=== PATIENT | male | born 1950 | race Caucasian/White ===

== ENCOUNTER 2016-11-12 15:24 | Inpatient (IN) | payer OTHER, MEDICARE ==
[2016-11-12] MEDS ORDERED: PANTOPRAZOLE 40 MG/10 ML VIAL IVP STA (16:33)
[2016-11-12] MEDS ORDERED: RX INFO: IV CONTRAST WAS GIVEN 1 EACH MISC MISCELLANE PRN (16:33)
[2016-11-12] MEDS ORDERED: DICYCLOMINE 10 MG/ML 2 ML AMP IM STA (16:33)
--- NOTE | 2016-11-12 16:36 | ED ---
General Adult HPI - General Chief complaint: Abdominal Pain Stated complaint: abdominal pain Time Seen by Provider: 11/12/16 16:24 Source: patient, RN notes reviewed Mode of arrival: ambulatory Limitations: no limitations - History of Present Illness Initial comments: Patient is a pleasant 66-year-old male presenting to the emergency department complaining of abdominal discomfort. Patient has had symptoms over the past 30- 35 years following intestinal resection. Patient has frequent diarrhea and discomfort. Discomfort has been somewhat worse over the past month. Discomfort is somewhat worse today. Patient feels a little bit distended. No bowel movement today which is very abnormal for him. All movements have been darker recently. Patient was recently placed on antibiotics for possible bowel infection. No fevers. No vomiting. Mild nausea - Related Data Home Medications Medication Instructions Recorded Confirmed Atenolol [Tenormin] 50 mg PO DAILY 11/12/16 11/12/16 Multivitamins, Thera [Multivitamin 1 tab PO DAILY 11/12/16 11/12/16 (formulary)] Omeprazole 20 mg PO DAILY 11/12/16 11/12/16 busPIRone HCL 10 mg PO QID 11/12/16 11/12/16 Allergies Allergy/AdvReac Type Severity Reaction Status Date / Time No Known Allergies Allergy Verified 11/12/16 16:59 Review of Systems ROS Statement: Those systems with pertinent positive or pertinent negative responses have been documented in the HPI. ROS Other: All systems not noted in ROS Statement are negative. Constitutional: Denies: fever Eyes: Denies: eye pain ENT: Denies: ear pain Respiratory: Denies: cough Cardiovascular: Denies: chest pain Endocrine: Denies: fatigue Gastrointestinal: Reports: abdominal pain, nausea. Denies: vomiting Genitourinary: Denies: dysuria Musculoskeletal: Denies: back pain Skin: Denies: rash Neurological: Denies: weakness Past Medical History Past Medical History: GERD/Reflux, Hypertension History of Any Multi-Drug Resistant Organisms: None Reported Past Surgical History: Appendectomy, Bowel Resection Past Psychological History: Anxiety Smoking Status: Current every day smoker Past Alcohol Use History: None Reported Past Drug Use History: None Reported General Exam Limitations: no limitations General appearance: alert, in no apparent distress Head exam: Present: atraumatic Eye exam: Present: normal appearance, PERRL ENT exam: Present: normal oropharynx Neck exam: Present: normal inspection Respiratory exam: Present: normal lung sounds bilaterally Cardiovascular Exam: Present: regular rate, normal rhythm GI/Abdominal exam: Present: soft, distended (Mildly distended), tenderness ( Mild diffuse), normal bowel sounds. Absent: guarding, rebound, rigid, pulsatile mass Rectal exam: Present: normal inspection (Limited stool in the vault.) Extremities exam: Present: normal inspection Neurological exam: Present: alert Psychiatric exam: Present: normal affect, normal mood Skin exam: Absent: rash Course Vital Signs 11/12/16 11/12/16 15:31 18:44 Temperature 97.7 F 98.3 F Pulse Rate 90 81 Respiratory 20 18 Rate Blood Pressure 126/79 149/89 O2 Sat by Pulse 100 96 Oximetry Medical Decision Making - Medical Decision Making Patient does not meet sepsis criteria as no definite source of infection. Patient reexamined in updated. Case discussed in detail with Dr. Rangel, who will admit for Dr. Vargas - Lab Data Result diagrams: 11/12/16 16:45 11/12/16 16:45 Lab Results 11/12/16 11/12/16 11/12/16 Range/Units 16:45 16:45 16:45 WBC 19.2 H (3.8-10.6) k/uL RBC 5.31 (4.30-5.90) m/uL Hgb 15.8 (13.0-17.5) gm/dL Hct 49.0 (39.0-53.0) % MCV 92.4 (80.0-100.0) fL MCH 29.7 (25.0-35.0) pg MCHC 32.2 (31.0-37.0) g/dL RDW 12.9 (11.5-15.5) % Plt Count 610 H (150-450) k/uL Neutrophils % 83 % Lymphocytes % 12 % Monocytes % 3 % Eosinophils % 1 % Basophils % 1 % Neutrophils # 15.8 H (1.3-7.7) k/uL Lymphocytes # 2.2 (1.0-4.8) k/uL Monocytes # 0.7 (0-1.0) k/uL Eosinophils # 0.2 (0-0.7) k/uL Basophils # 0.1 (0-0.2) k/uL PT (9.0-12.0) sec INR (<1.1) APTT (22.0-30.0) sec Sodium 140 (137-145) mmol/L Potassium 4.9 (3.5-5.1) mmol/L Chloride 98 (98-107) mmol/L Carbon Dioxide 26 (22-30) mmol/L Anion Gap 16 mmol/L BUN 15 (9-20) mg/dL Creatinine 1.65 H (0.66-1.25) mg/dL Est GFR (MDRD) Af Amer 51 (>60 ml/min/1.73 sqM) Est GFR (MDRD) Non-Af 42 (>60 ml/min/1.73 sqM) Glucose 127 H (74-99) mg/dL Calcium 8.4 (8.4-10.2) mg/dL Total Bilirubin 0.7 (0.2-1.3) mg/dL AST 30 (17-59) U/L ALT 26 (21-72) U/L Alkaline Phosphatase 57 (38-126) U/L Total Protein 8.0 (6.3-8.2) g/dL Albumin 4.5 (3.5-5.0) g/dL Amylase 92 (30-110) U/L Lipase 160 (23-300) U/L Urine Color Urine Appearance (Clear) Urine pH (5.0-8.0) Ur Specific [place] (1.001-1.035) Urine Protein (Negative) Urine Glucose (UA) (Negative) Urine Ketones (Negative) Urine Blood (Negative) Urine Nitrite (Negative) Urine Bilirubin (Negative) Urine Urobilinogen (<2.0) mg/dL Ur Leukocyte Esterase (Negative) Urine WBC (0-5) /hpf Ur Squamous Epith Cells (0-4) /hpf Amorphous Sediment (None) /hpf Hyaline Casts (0-2) /lpf Urine Mucus (None) /hpf Stool Occult Blood Negative (Negative) 11/12/16 11/12/16 Range/Units 16:45 17:20 WBC (3.8-10.6) k/uL RBC (4.30-5.90) m/uL Hgb (13.0-17.5) gm/dL Hct (39.0-53.0) % MCV (80.0-100.0) fL MCH (25.0-35.0) pg MCHC (31.0-37.0) g/dL RDW (11.5-15.5) % Plt Count (150-450) k/uL Neutrophils % % Lymphocytes % % Monocytes % % Eosinophils % % Basophils % % Neutrophils # (1.3-7.7) k/uL Lymphocytes # (1.0-4.8) k/uL Monocytes # (0-1.0) k/uL Eosinophils # (0-0.7) k/uL Basophils # (0-0.2) k/uL PT 11.2 (9.0-12.0) sec INR 1.1 (<1.1) APTT 22.5 (22.0-30.0) sec Sodium (137-145) mmol/L Potassium (3.5-5.1) mmol/L Chloride (98-107) mmol/L Carbon Dioxide (22-30) mmol/L Anion Gap mmol/L BUN (9-20) mg/dL Creatinine (0.66-1.25) mg/dL Est GFR (MDRD) Af Amer (>60 ml/min/1.73 sqM) Est GFR (MDRD) Non-Af (>60 ml/min/1.73 sqM) Glucose (74-99) mg/dL Calcium (8.4-10.2) mg/dL Total Bilirubin (0.2-1.3) mg/dL AST (17-59) U/L ALT (21-72) U/L Alkaline Phosphatase (38-126) U/L Total Protein (6.3-8.2) g/dL Albumin (3.5-5.0) g/dL Amylase (30-110) U/L Lipase (23-300) U/L Urine Color Dark Yellow Urine Appearance Cloudy (Clear) Urine pH 5.5 (5.0-8.0) Ur Specific [place] 1.023 (1.001-1.035) Urine Protein 2+ H (Negative) Urine Glucose (UA) Negative (Negative) Urine Ketones Negative (Negative) Urine Blood Negative (Negative) Urine Nitrite Negative (Negative) Urine Bilirubin Negative (Negative) Urine Urobilinogen 2.0 (<2.0) mg/dL Ur Leukocyte Esterase Negative (Negative) Urine WBC 9 H (0-5) /hpf Ur Squamous Epith Cells <1 (0-4) /hpf Amorphous Sediment Rare H (None) /hpf Hyaline Casts 1256 H (0-2) /lpf Urine Mucus Moderate H (None) /hpf Stool Occult Blood (Negative) - Radiology Data Radiology results: report reviewed (Computed tomography scan of abdomen and pelvis shows wall thickening with masslike area involving terminal ileum and cecum. May reflect neoplasm versus chronic inflammatory process. Distal small bowel likely reflecting at least partial small bowel obstruction.) Disposition Clinical Impression: Small bowel obstruction Disposition: ADMITTED IP TO THIS HOSP
[2016-11-12 17:07] LABS: Basophils # (A) 0.1 k/uL (0-0.2); Basophils % (A) 1 %; CH 29.5; Eosinophils # (A) 0.2 k/uL (0-0.7); Eosinophils % (A) 1 %; HDW 2.61; HGB 15.8 gm/dL (13.0-17.5); Luc # (Auto) 0.13; Luc % (Auto) 1; Lymphocytes # (A) 2.2 k/uL (1.0-4.8); Lymphocytes % (A) 12 %; MCH 29.7 pg (25.0-35.0); MCHC 32.2 g/dL (31.0-37.0); MCV 92.4 fL (80.0-100.0); Mean Platelet Volume 7.3; Monocytes # (A) 0.7 k/uL (0-1.0); Monocytes % (A) 3 %; Neutrophils # (A) 15.8 k/uL (1.3-7.7); Neutrophils % (A) 83 %; RBC 5.31 m/uL (4.30-5.90); RDW 12.9 % (11.5-15.5); WBC 19.2 k/uL (3.8-10.6); WBC (Perox) 18.98
[2016-11-12 17:13] LABS: INR 1.1 (<1.1); Partial Thromboplastin Time 22.5 sec (22.0-30.0); Prothrombin Time 11.2 sec (9.0-12.0)
[2016-11-12 17:15] LABS: Calcium 8.4 mg/dL (8.4-10.2); Potassium 4.9 mmol/L (3.5-5.1); Total Bilirubin 0.7 mg/dL (0.2-1.3)
[2016-11-12] MEDS ORDERED: SODIUM CHLORIDE 0.9% 500 ML IV STA (17:46)
[2016-11-12 17:55] LABS: Amorphous Sediment,Urine Rare /hpf; Appearance,Urine Cloudy (Clear); Bilirubin,Urine Negative (Negative); Glucose,Urine (UA) Negative (Negative); Ketones,Urine Negative (Negative); Leukocyte Esterase,Urine Negative (Negative); Mucus,Urine Moderate /hpf; Nitrite,Urine Negative (Negative); PH, Urine 5.5 (5.0-8.0); Particle Count 16426; Protein,Urine 2+ (Negative); Specific Gravity,Urine 1.023 (1.001-1.035); Squamous Epithelial Cell,Urine <1 /hpf (0-4); UA Billing (MACRO vs. MICRO) MICRO; WBC,Urine 9 /hpf (0-5)
--- NOTE | 2016-11-12 18:13 | CT ---
EXAMINATION TYPE: CT abdomen pelvis w con DATE OF EXAM: 11/12/2016 5:54 PM COMPARISON: NONE HISTORY: Patient complains of periumbilical pain, constipation, and bloating CT DLP: 1554 mGycm CONTRAST: CT scan of the abdomen and pelvis is performed without Oral Contrast and with IV Contrast, patient in jected with 80 mL of Visipaque 320. FINDINGS: LUNG BASES-: No visible nodule. No infiltrate. LIVER/GB: No calcified gallstones. No space occupying hepatic lesion. Biliary tree is of normal ca liber. PANCREAS: No inflammation. No distinct mass. SPLEEN: No splenic enlargement. No lesion seen. ADRENALS: 1.2 cm left adrenal nodule is nonspecific. KIDNEYS/BLADDER: No hydronephrosis. No nephrolithiasis. No disctinct renal mass. Urinary bladder g rossly unremarkable. BOWEL: There is moderately severe wall thickening involving the distal ileum&&&& GENITAL ORGANS: No gross abnormality. LYMPH NODES: No greater than 1cm abdominal or pelvic lymph nodes are appreciated. AORTA: No significant abnormality. OSSEOUS STRUCTURES: No significant abnormality is seen. OTHER: Small amount of free fluid within the pelvis. IMPRESSION: 1. Wall thickening with masslike area noted involving the terminal ileum and cecum. As noted this may reflect neoplasm versus chronic inflammatory process. The appendix is not clearly visualized. See ab ove discussion. 2. Dilated small bowel likely reflecting at least partial small bowel obstruction.
[2016-11-12] MEDS ORDERED: HYDROmorphone 1 MG/ML 1 ML SYRINGE IVP STA (18:35)
[2016-11-12] MEDS ORDERED: NALOXONE 0.4 MG/ML 1 ML VIAL IV PRN (18:41)
[2016-11-12] MEDS ORDERED: ONDANSETRON 4 MG/2 ML VIAL IVP PRN (18:41)
[2016-11-12] MEDS: SODIUM CHLORIDE 0.9% 1,000 ML IV SCH ×2 (18:46→22:12)
[2016-11-12] MEDS ORDERED: PIPERACILLIN-TAZOBACTAM 3.375 GM in DEXTROSE/WATER 1 50ML.BAG IVPB STA (18:48)
[2016-11-12] MEDS: HYDROmorphone 1 MG/ML 1 ML SYRINGE IV PRN (22:12)
[2016-11-13] MEDS: HYDROmorphone 1 MG/ML 1 ML SYRINGE IV PRN ×7 (00:19→19:53)
[2016-11-13] MEDS: PIPERACILLIN-TAZOBACTAM 3.375 GM in DEXTROSE/WATER 1 50ML.BAG IVPB SCH ×3 (05:42→21:01)
[2016-11-13] MEDS: PANTOPRAZOLE 40 MG/10 ML VIAL IV SCH (08:46)
[2016-11-13 09:30] LABS: Basophils # (A) 0.1 k/uL (0-0.2); Basophils % (A) 1 %; CH 29.2; CHCM 31.8; Eosinophils # (A) 0.1 k/uL (0-0.7); Eosinophils % (A) 1 %; HCT 43.2 % (39.0-53.0); HDW 2.55; Luc # (Auto) 0.21; Luc % (Auto) 2; Lymphocytes # (A) 3.2 k/uL (1.0-4.8); Lymphocytes % (A) 23 %; MCH 29.8 pg (25.0-35.0); MCHC 32.3 g/dL (31.0-37.0); MCV 92.3 fL (80.0-100.0); Mean Platelet Volume 6.4; Monocytes # (A) 0.8 k/uL (0-1.0); Monocytes % (A) 6 %; Neutrophils # (A) 9.8 k/uL (1.3-7.7); Neutrophils % (A) 69 %; RBC 4.68 m/uL (4.30-5.90); RDW 12.5 % (11.5-15.5); WBC 14.2 k/uL (3.8-10.6); WBC (Perox) 14.49
[2016-11-13 09:39] LABS: Calcium 7.7 mg/dL (8.4-10.2); Potassium 5.2 mmol/L (3.5-5.1); Total Bilirubin 0.7 mg/dL (0.2-1.3); Total Protein 6.5 g/dL (6.3-8.2)
--- NOTE | 2016-11-13 12:08 | P.GSCN ---
History of Present Illness Consult date: 11/13/16 Reason for Consult: Abdominal pain History of present illness: A 66-year-old gentleman who is being seen for a surgical eval for abdominal pain at the request of the attending. Patient states that he did present to the emergency room on the day of admission after patient stated that he had been having ongoing for the past several weeks increased abdominal pain bloated with no stool for the last several days which according to the patient was abnormal patient states he normally has at least 3-4 stools daily. Patient states that 3 weeks ago he did go to the [facility] in [place] for his regular checkup while he was there he told them about the abdominal bloating with diffuse abdominal pain he was experiencing. He states that they did check some labs was told his white count was up they gave him a prescription for an antibiotic for treatment of a questionable possible bowel infection. Patient is not certain of the name of antibiotic Patient stated he had not been experiencing any fever or chills he felt a sensation of nausea but no active vomiting. He stated that the last week or 2 he has been experiencing a poor oral intake poor caloric and has lost 10 pounds.. Patient contributes his poor caloric and oral intake due to nausea sensation with no appetite patient stated that he did become concerned symptoms had gotten worse he has not had a bowel movement in several days with increased abdominal bloating in the emergency room the white count was 19.2. Patient was afebrile slightly tachycardic heart rate was in the 90s. Additionally patient's creatinine was mildly elevated 1.6 in the emergency room the patient did undergo a CAT scan of the abdomen and pelvis that showed wall thickening with the masslike area involving the terminal ileum and cecum. Could reflect a neoplasm or a chronic inflammatory process. The distal small bowel likely reflecting as partial small bowel obstruction Currently patient is resting in bed a nasal gastric tube is in place connected to suction greater than 500 of bile noted in the canister patient continues to report having abdominal discomfort a few hypoactive bowel tones no nausea no stool not passing any gas pain medication effective for pain control Patient's surgical history 35 years ago patient had bowel surgery with an appendectomy done. Patient states he was told that there was an infection part of bowel as well as the appendix removed . Last colonoscopy 10 years patient reports that there were no acute findings otherwise no significant past surgical history Patient denies any cardiac history denies any episodes of chest pain. States he 's normally an active individual can walk half a mile without chest pain or shortness of breath. Has never been told he had a cardiac history. Past medical history hypertension and a depressive disorder Review of Systems Essentially unremarkable except as mentioned in the present illness Past Medical History Past Medical History: GERD/Reflux, Hypertension Additional Past Medical History / Comment(s): IBS, "HERNIATED DICS LOWER BACK" History of Any Multi-Drug Resistant Organisms: None Reported Past Surgical History: Appendectomy, Bowel Resection, Tubal Ligation Additional Past Surgical History / Comment(s): "35 YEARS AGO HAD BOWEL SX- REMOVED A FOOT OF INTESTINE D/T LOW GRADE INFECTION" Past Anesthesia/Blood Transfusion Reactions: No Reported Reaction Past Psychological History: Anxiety Additional Psychological History / Comment(s): PT IS , LIVES IN A 2 STORY HOME THAT HAS 4 PORCH STEPS. AND 20 STEPS TO UPSATIRS. NO PETS. NO OUTSIDE SERVICES. NO MEDICAL EQUIPMENT. 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 STATED FOR 20 YEARS DRANK MOD TO HEAVY THEN QUIT AGE 48. Past Drug Use History: None Reported - Past Family History Mother Family Medical History: Diabetes Mellitus Medications and Allergies Home Medications Medication Instructions Recorded Confirmed Type Atenolol [Tenormin] 50 mg PO DAILY 11/12/16 11/12/16 History Multivitamins, Thera [Multivitamin 1 tab PO DAILY 11/12/16 11/12/16 History (formulary)] Omeprazole 20 mg PO DAILY 11/12/16 11/12/16 History busPIRone HCL 10 mg PO QID 11/12/16 11/12/16 History Allergies Allergy/AdvReac Type Severity Reaction Status Date / Time No Known Allergies Allergy Verified 11/12/16 16:59 Surgical - Exam Vital Signs Temp Pulse Resp BP Pulse Ox 97.7 F 90 20 126/79 100 11/12/16 15:31 11/12/16 15:31 11/12/16 15:31 11/12/16 15:31 11/12/16 15:31 GENERAL APPEARANCE: 66-year-old male patient is alert, oriented, in no acute distress. Pleasant cooperative nasal gastric tube in place connected to suction VITAL SIGNS: Reviewed HEENT: Head is normocephalic and atraumatic. Pupils are equal and reactive. The nares are patent. Oropharynx is clear without lesions. NECK: Supple without lymphadenopathy. Traches midline. HEART: S1, S2. Regular rate and rhythm. No murmur noted denying chest pain LUNGS: Essentially clear adequate air movement no wheezing rales or rhonchi no cough noted ABDOMEN: Soft, diffuse tenderness slight distention a few hypoactive bowel tones noted. No peritoneal signs. No palpable organomegaly or masses.Nasal gastric tube in place connected to suction moderate amount of bile secretions in the canister states not passing gas no stool EXTREMITIES: Normal skin color and turgor. No cyanosis, rash, ulceration, clubbing or edema. Radial pedal pulses are 2/4 bilaterally.Venodyne's on bilaterally lower extremities NEUROLOGICAL: No focal deficits. Strength and sensation are grossly intact. Results - Labs 11/13/16 08:35 11/13/16 08:35 Abnormal Lab Results - Last 24 Hours (Table) 11/13/16 11/13/16 Range/Units 08:35 08:35 WBC 14.2 H (3.8-10.6) k/uL Plt Count 480 H (150-450) k/uL Neutrophils # 9.8 H (1.3-7.7) k/uL Potassium 5.2 H (3.5-5.1) mmol/L Creatinine 1.47 H (0.66-1.25) mg/dL Glucose 101 H (74-99) mg/dL Calcium 7.7 L (8.4-10.2) mg/dL Diabetes panel 11/13/16 Range/Units 08:35 Sodium 141 (137-145) mmol/L Potassium 5.2 H (3.5-5.1) mmol/L Chloride 103 (98-107) mmol/L Carbon Dioxide 29 (22-30) mmol/L BUN 18 (9-20) mg/dL Creatinine 1.47 H (0.66-1.25) mg/dL Glucose 101 H (74-99) mg/dL Calcium 7.7 L (8.4-10.2) mg/dL AST 27 (17-59) U/L ALT 25 (21-72) U/L Alkaline Phosphatase 53 (38-126) U/L Total Protein 6.5 (6.3-8.2) g/dL Albumin 3.6 (3.5-5.0) g/dL Calcium panel 11/13/16 Range/Units 08:35 Calcium 7.7 L (8.4-10.2) mg/dL Albumin 3.6 (3.5-5.0) g/dL Pituitary panel 11/13/16 Range/Units 08:35 Sodium 141 (137-145) mmol/L Potassium 5.2 H (3.5-5.1) mmol/L Chloride 103 (98-107) mmol/L Carbon Dioxide 29 (22-30) mmol/L BUN 18 (9-20) mg/dL Creatinine 1.47 H (0.66-1.25) mg/dL Glucose 101 H (74-99) mg/dL Calcium 7.7 L (8.4-10.2) mg/dL Adrenal panel 11/13/16 Range/Units 08:35 Sodium 141 (137-145) mmol/L Potassium 5.2 H (3.5-5.1) mmol/L Chloride 103 (98-107) mmol/L Carbon Dioxide 29 (22-30) mmol/L BUN 18 (9-20) mg/dL Creatinine 1.47 H (0.66-1.25) mg/dL Glucose 101 H (74-99) mg/dL Calcium 7.7 L (8.4-10.2) mg/dL Total Bilirubin 0.7 (0.2-1.3) mg/dL AST 27 (17-59) U/L ALT 25 (21-72) U/L Alkaline Phosphatase 53 (38-126) U/L Total Protein 6.5 (6.3-8.2) g/dL Albumin 3.6 (3.5-5.0) g/dL Assessment and Plan Plan: Impression Present on admission abdominal pain bloating nausea sensation suspect due to partial small bowel obstruction History of unintentional weight loss greater than 10 pounds within the last 2 weeks CAT scan abdomen and pelvis wall thickening with masslike area noted involving terminal ileum and cecum may reflect neoplasm or chronic inflammatory process CAT scan abdomen and pelvis dilated small bowel likely reflecting partial small bowel obstruction A remote history greater than 35 years ago bowel resection with an appendectomy History of hypertension History of esophageal reflux Present on admission leukocytosis Plan Continue with nasal gastric tube connect to suction Pain control IV hydration DVT and GI prophylaxis Continue with IV Zosyn as ordered Scheduled tentatively for OR tomorrow exploratory lap possible lysis of adhesions for a possible small bowel obstruction defer to the timing by surgical service Further recommendations pending EKG now Type and cross now Thank you for this kind referral and allowing us to participate in the surgical management of your patient further surgical recommendations pending clinical course The above dictated assessment and findings were discussed with dr fisher Impression and the plan of care have been dictated as directed. Flower iSmpson nurse practitioner acting as a scribe for dr fisher
[2016-11-13] MEDS: busPIRone HCl 10 MG TAB PO SCH ×4 (12:56→21:33)
[2016-11-13] MEDS: SODIUM CHLORIDE 0.9% 1,000 ML IV SCH ×2 (13:07→18:03)
--- NOTE | 2016-11-13 15:21 | P.HPIM ---
History of Present Illness H&P Date: 11/13/16 66-year-old gentleman comes in the hospital with progressive worsening of abdominal pain diffuse in nature mostly focused around the umbilicus for the last 2-3 days. Patient states that over the last 2 weeks he has had intermittent pains. Or the last 2-3 days patient has had progressive worsening of pain and has had intractable nausea. Patient states that he has had some watery bowel movements over the last 1-2 weeks. States that he has lost over 10 pounds over the last 2-3 weeks. In the emergency room patient was noted to have a computed tomography scan of the abdomen pelvis was noted to have a masslike region of the terminal ileum and the cecum. States that his last colonoscopy was over 10 years ago. Patient was noted to have a masslike area causing a small bowel obstruction. An NG tube was placed. During the time of my evaluation patient states he feels slightly better however does continue complain of abdominal pain around the location described above. Family history denies having any history of colon cancer or any other cancer history. Patient does smoke about half a pack of cigarettes daily. Review of Systems All systems: negative (Noted in HPI) Past Medical History Past Medical History: GERD/Reflux, Hypertension Additional Past Medical History / Comment(s): IBS, "HERNIATED DICS LOWER BACK" History of Any Multi-Drug Resistant Organisms: None Reported Past Surgical History: Appendectomy, Bowel Resection, Tubal Ligation Additional Past Surgical History / Comment(s): "35 YEARS AGO HAD BOWEL SX- REMOVED A FOOT OF INTESTINE D/T LOW GRADE INFECTION" Past Anesthesia/Blood Transfusion Reactions: No Reported Reaction Past Psychological History: Anxiety Additional Psychological History / Comment(s): PT IS , LIVES IN A 2 STORY HOME THAT HAS 4 PORCH STEPS. AND 20 STEPS TO UPSATIRS. NO PETS. NO OUTSIDE SERVICES. NO MEDICAL EQUIPMENT. 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 STATED FOR 20 YEARS DRANK MOD TO HEAVY THEN QUIT AGE 48. Past Drug Use History: None Reported - Past Family History Mother Family Medical History: Diabetes Mellitus Medications and Allergies Home Medications Medication Instructions Recorded Confirmed Type Atenolol [Tenormin] 50 mg PO DAILY 11/12/16 11/12/16 History Multivitamins, Thera [Multivitamin 1 tab PO DAILY 11/12/16 11/12/16 History (formulary)] Omeprazole 20 mg PO DAILY 11/12/16 11/12/16 History busPIRone HCL 10 mg PO QID 11/12/16 11/12/16 History Allergies Allergy/AdvReac Type Severity Reaction Status Date / Time No Known Allergies Allergy Verified 11/12/16 16:59 Physical Exam Vitals: Vital Signs Temp Pulse Pulse Resp BP BP Pulse Ox 11/13/16 07:00 97.6 F 85 16 132/70 95 11/12/16 23:00 98.8 F 85 20 121/81 95 11/12/16 21:01 97.5 F L 87 20 128/89 97 11/12/16 20:18 98.1 F 87 16 138/87 98 11/12/16 18:44 98.3 F 81 18 149/89 96 Intake and Output 11/13/16 11/13/16 11/13/16 06:59 14:59 22:59 Intake Total 0 Output Total 600 Balance -600 Intake: Oral 0 Output: Gastric Drainage 600 Other: Voiding Method Toilet # Voids 1 Physical exam Gen. appearance oriented 3 in no distress Neck is supple no JVD Lungs good air entry clear to auscultation no rhonchi or wheezing Heart S1-S2 heard regular rate and rhythm no murmurs appreciated Abdomen diffusely tender more focal tenderness around the umbilicus NG tube in place bilious content noted Neurologically cranial nerves II-12 grossly intact no focal motor or sensory deficits noted Skin no abnormalities appreciated Results CBC & Chem 7: 11/13/16 08:35 11/13/16 08:35 Labs: Abnormal Lab Results - Last 24 Hours (Table) 11/13/16 11/13/16 Range/Units 08:35 08:35 WBC 14.2 H (3.8-10.6) k/uL Plt Count 480 H (150-450) k/uL Neutrophils # 9.8 H (1.3-7.7) k/uL Potassium 5.2 H (3.5-5.1) mmol/L Creatinine 1.47 H (0.66-1.25) mg/dL Glucose 101 H (74-99) mg/dL Calcium 7.7 L (8.4-10.2) mg/dL Thrombosis Risk Factor Assmnt - Choose All That Apply Any of the Below Risk Factors Present?: No Other Risk Factors: Yes Each Risk Factor Represents 2 Points: Age 61-74 years Other congenital or acquired thrombophilia - If yes, enter type in comment: No Thrombosis Risk Factor Assessment Total Risk Factor Score: 2 Thrombosis Risk Factor Assessment Level: Low Risk Assessment and Plan Plan: [id number] gentleman is admitted to the hospital with the nausea vomiting and abdominal pain secondary to small bowel obstruction due to a mass #2 ongoing tobacco use #3 GERD #4 history of hypertension. #5 history of depression/severe anxiety Plan At surgical consultation will be obtained and continue NG tube decompression. We'll defer to the general surgeon in regards to a surgical evaluation of the patient's mass around the ileum/cecum. Patient is able to perform greater than 5 mets Prior to the recent onset of symptoms. Is clear for surgery from a cardiovascular risk assessment with low to moderate probability for morbidity/mortality.
[2016-11-13] MEDS: HEPARIN SODIUM,PORCINE 5,000 UNIT/ML 1 ML VIAL SQ SCH (21:02)
[2016-11-13] MEDS ORDERED: HYDROmorphone 1 MG/ML 1 ML SYRINGE ONE (23:05)
[2016-11-14] MEDS ORDERED: HYDROmorphone 1 MG/ML 1 ML SYRINGE ONE (03:26)
[2016-11-14] MEDS ORDERED: PIPERACILLIN-TAZO 3.375 GM/50 ML PMX BAG ONE (03:26)
[2016-11-14] MEDS ORDERED: SODIUM CHLORIDE 0.9% 1,000 ML BAG ONE (03:26)
[2016-11-14] MEDS: HYDROmorphone 1 MG/ML 1 ML SYRINGE IV PRN ×3 (07:00→23:18)
[2016-11-14] MEDS: SODIUM CHLORIDE 0.9% 1,000 ML IV SCH ×3 (08:22→21:42)
[2016-11-14] MEDS: PIPERACILLIN-TAZOBACTAM 3.375 GM in DEXTROSE/WATER 1 50ML.BAG IVPB SCH ×3 (08:22→21:48)
[2016-11-14] MEDS: ATENOLOL 50 MG TAB PO SCH (08:26)
[2016-11-14] MEDS: PANTOPRAZOLE 40 MG/10 ML VIAL IV SCH (08:26)
[2016-11-14] MEDS: HEPARIN SODIUM,PORCINE 5,000 UNIT/ML 1 ML VIAL SQ SCH (08:27)
[2016-11-14] MEDS: busPIRone HCl 10 MG TAB PO SCH ×4 (08:27→21:41)
[2016-11-14 09:17] LABS: ALT 31 U/L (21-72); AST 30 U/L (17-59); Alkaline Phosphatase 52 U/L (38-126); Anion Gap 12 mmol/L; Blood Urea Nitrogen 18 mg/dL (9-20); Calcium 7.4 mg/dL (8.4-10.2); Carbon Dioxide 24 mmol/L (22-30); Chloride 107 mmol/L (98-107); Glucose 84 mg/dL (74-99); Non-African American GFR(MDRD) 60 (>60 ml/min/1.73 sqM); Potassium 4.2 mmol/L (3.5-5.1); Sodium 143 mmol/L (137-145); Total Bilirubin 0.8 mg/dL (0.2-1.3); Total Protein 5.9 g/dL (6.3-8.2)
[2016-11-14 09:18] LABS: Basophils # (A) 0.1 k/uL (0-0.2); Basophils % (A) 1 %; CH 29.5; CHCM 31.4; Eosinophils # (A) 0.2 k/uL (0-0.7); Eosinophils % (A) 1 %; HCT 38.7 % (39.0-53.0); HDW 2.43; HGB 12.3 gm/dL (13.0-17.5); Luc # (Auto) 0.16; Luc % (Auto) 1; Lymphocytes # (A) 2.3 k/uL (1.0-4.8); Lymphocytes % (A) 19 %; MCH 29.9 pg (25.0-35.0); MCHC 31.7 g/dL (31.0-37.0); MCV 94.1 fL (80.0-100.0); Mean Platelet Volume 6.5; Monocytes # (A) 0.7 k/uL (0-1.0); Monocytes % (A) 6 %; Neutrophils % (A) 73 %; RBC 4.12 m/uL (4.30-5.90); RDW 12.9 % (11.5-15.5); WBC 12.4 k/uL (3.8-10.6); WBC (Perox) 12.71
--- NOTE | 2016-11-14 13:35 | P.PN ---
<Flower Simpson M - Last Filed: 11/14/16 13:27> Subjective 66-year-old male being seen on rounds this morning patient states he had several loose stools last night and had 1 small stool this morning. Nursing reports the stools have been watery no blood noted. Patient states is less abdominal cramping. has a nasal gastric tube in place connected to suction. Patient does state the pain medication effective for pain control. Patient states been up ambulating in the hallway states is not passing gas not belching Objective - Vital Signs Vital signs: Vital Signs Temp 97.5 F L 11/14/16 07:00 Pulse 94 11/14/16 07:00 Resp 16 11/14/16 07:00 BP 129/77 11/14/16 07:00 Pulse Ox 94 L 11/14/16 07:00 Intake & Output 11/13/16 11/14/16 11/14/16 18:59 06:59 18:59 Output Total 200 151 Balance -200 -151 Weight 101.151 kg Output: Gastric Drainage 200 150 Urine 1 Other: Voiding Method Toilet Toilet Toilet # Voids 2 1 # Bowel Movements 2 - Exam physical exam Pleasant 66-year-old male resting in bed in nasal gastric tube to suction appears in no acute distress lungs essentially clear adequate air movement room air Heart S1-S2 audible and regular denying chest pain Abdomen less distended compared to prior assessment all tones present states urinating no difficulty states had 1 stool this morning loose watery and 2 stools the day before. Continues to report has abdominal cramping Extremities no edema - Labs CBC & Chem 7: 11/14/16 08:47 11/14/16 08:44 Labs: Abnormal Lab Results - Last 24 Hours (Table) 11/14/16 11/14/16 Range/Units 08:44 08:47 WBC 12.4 H (3.8-10.6) k/uL RBC 4.12 L (4.30-5.90) m/uL Hgb 12.3 L (13.0-17.5) gm/dL Hct 38.7 L (39.0-53.0) % Neutrophils # 9.0 H (1.3-7.7) k/uL Calcium 7.4 L (8.4-10.2) mg/dL Total Protein 5.9 L (6.3-8.2) g/dL Albumin 3.3 L (3.5-5.0) g/dL Assessment and Plan Plan: Impression Present on admission abdominal pain bloating nausea sensation suspect due to partial small bowel obstruction History of unintentional weight loss greater than 10 pounds within the last 2 weeks CAT scan abdomen and pelvis wall thickening with masslike area noted involving terminal ileum and cecum may reflect neoplasm or chronic inflammatory process CAT scan abdomen and pelvis dilated small bowel likely reflecting partial small bowel obstruction A remote history greater than 35 years ago bowel resection with an appendectomy History of hypertension History of esophageal reflux Present on admission leukocytosis Plan Continue with nasal gastric tube connect to suction Pain control IV hydration DVT and GI prophylaxis Continue with IV Zosyn as ordered scheduled for OR this afternoon per Dr. fisher defer to the timing by surgical service Further recommendations pending Thank you for this kind referral and allowing us to participate in the surgical management of your patient further surgical recommendations pending clinical course The above dictated assessment and findings were discussed with dr fisher Impression and the plan of care have been dictated as directed. Flower Simpson nurse practitioner acting as a scribe for dr fisher <Jaspreet Fisher W - Last Filed: 11/14/16 13:54> Subjective The patient has had parital obsutions off an on for the last few weeks. He presented with obstiaption. ADue to the mass from the previous surgery and his symptoms we have decided to proceed with a diagnostic laparoscopy and possible laparotomy . He understands the risks and is willing to proceed. (Jaspreet Fisher MD ) Objective - Vital Signs Vital signs: Vital Signs Temp 97.5 F L 11/14/16 07:00 Pulse 94 11/14/16 07:00 Resp 16 11/14/16 07:00 BP 129/77 11/14/16 07:00 Pulse Ox 94 L 11/14/16 07:00 Intake & Output 11/13/16 11/14/16 11/14/16 18:59 06:59 18:59 Output Total 200 151 Balance -200 -151 Weight 101.151 kg Output: Gastric Drainage 200 150 Urine 1 Other: Voiding Method Toilet Toilet Toilet # Voids 2 1 # Bowel Movements 2 - Labs CBC & Chem 7: 11/14/16 08:47 11/14/16 08:44 Labs: Abnormal Lab Results - Last 24 Hours (Table) 11/14/16 11/14/16 Range/Units 08:44 08:47 WBC 12.4 H (3.8-10.6) k/uL RBC 4.12 L (4.30-5.90) m/uL Hgb 12.3 L (13.0-17.5) gm/dL Hct 38.7 L (39.0-53.0) % Neutrophils # 9.0 H (1.3-7.7) k/uL Calcium 7.4 L (8.4-10.2) mg/dL Total Protein 5.9 L (6.3-8.2) g/dL Albumin 3.3 L (3.5-5.0) g/dL
[2016-11-14] MEDS ORDERED: IV FLUID CONTINUATION 1,000 ML IV ONE (14:02)
[2016-11-14] MEDS ORDERED: ALBUMIN HUMAN 5% 500 ML VIAL IVPB ONE (14:20)
[2016-11-14] MEDS ORDERED: MIDAZOLAM 2 MG/2 ML VIAL ONE (14:20)
[2016-11-14] MEDS ORDERED: PROPOFOL 10 MG/ML 20 ML VIAL IV ONE (14:20)
[2016-11-14] MEDS ORDERED: LIDOCAINE 1% INJ 10MG/ML (20 ML MDV) ONE (14:20)
[2016-11-14] MEDS ORDERED: NEOSTIGMINE 1 MG/ML 10 ML VIAL ONE (14:20)
[2016-11-14] MEDS ORDERED: PHENYLEPHRINE-0.9% NACL SYG 1 MG/10 ML SYRINGE ONE (14:20)
[2016-11-14] MEDS ORDERED: ONDANSETRON 4 MG/2 ML VIAL ONE (14:20)
[2016-11-14] MEDS ORDERED: fentaNYL (PF) 50 MCG/ML 2 ML AMP ONE (14:20)
[2016-11-14] MEDS ORDERED: SUCCINYLCHOLINE CHLORIDE 100 MG/5 ML SYR IV ONE (14:20)
[2016-11-14] MEDS ORDERED: HYDROmorphone (PF) 1 MG/ML ONE (14:20)
[2016-11-14] MEDS ORDERED: KETOROLAC 30 MG/ML 1 ML VIAL ONE (14:20)
[2016-11-14] MEDS ORDERED: GLYCOPYRROLATE 0.2 MG/ML 2 ML VIAL ONE (14:20)
[2016-11-14] MEDS ORDERED: ROCURONIUM BROMIDE 10 MG/ML 10 ML VIAL IV ONE (14:20)
[2016-11-14] MEDS ORDERED: BUPIVACAIN-EPI 0.25%-1:200,000 30 ML VIAL SQ ONE ×2 (14:48)
[2016-11-14] MEDS ORDERED: LACTATED RINGERS 1,000 ML IV ONE ×4 (14:48→17:48)
[2016-11-14] MEDS ORDERED: ALBUMIN HUMAN 5% 500 ML in EMPTY BAG 1 BAG IVPB STA ×2 (16:39→17:34)
--- NOTE | 2016-11-14 18:57 | P.PN ---
Subjective 66-year-old gentleman comes in the hospital with progressive worsening of abdominal pain diffuse in nature mostly focused around the umbilicus for the last 2-3 days. Patient states that over the last 2 weeks he has had intermittent pains. Or the last 2-3 days patient has had progressive worsening of pain and has had intractable nausea. Patient states that he has had some watery bowel movements over the last 1-2 weeks. States that he has lost over 10 pounds over the last 2-3 weeks. In the emergency room patient was noted to have a computed tomography scan of the abdomen pelvis was noted to have a masslike region of the terminal ileum and the cecum. States that his last colonoscopy was over 10 years ago. Patient was noted to have a masslike area causing a small bowel obstruction. An NG tube was placed. During the time of my evaluation patient states he feels slightly better however does continue complain of abdominal pain around the location described above. Family history denies having any history of colon cancer or any other cancer history. Patient does smoke about half a pack of cigarettes daily. 11/14/16 states to be feeling slightly better continues to have abdominal pain has watery bms no fevers, chills, cough, markie, chest pain, urinary urgency or frequency reported.NG tube in place Objective - Vital Signs Vital signs: Vital Signs Temp 98.0 F 11/14/16 13:52 Pulse 91 11/14/16 13:52 Resp 16 11/14/16 13:52 BP 145/81 11/14/16 13:52 Pulse Ox 94 L 11/14/16 13:52 Intake & Output 11/13/16 11/14/16 11/14/16 18:59 06:59 18:59 Intake Total 2500 Output Total 200 151 Balance -200 -151 2500 Weight 101.151 kg Intake: IV 2500 Output: Gastric Drainage 200 150 Urine 1 Other: Voiding Method Toilet Toilet Toilet # Voids 2 1 3 # Bowel Movements 2 - Constitutional General appearance: Present: no acute distress - EENT Eyes: Present: PERRLA - Neck Neck: Present: normal ROM. Absent: rigidity - Respiratory Respiratory: bilateral: CTA, negative: diminished, dullness, rales, rhonchi, wheezing - Cardiovascular Rhythm: regular Heart sounds: normal: S1, S2 Abnormal Heart Sounds: Absent: systolic murmur - Gastrointestinal General gastrointestinal: Present: soft, tenderness (diffuse). Absent: organomegaly - Integumentary Integumentary: Present: normal - Neurologic Neurologic: Present: CNII-XII intact. Absent: focal deficits - Musculoskeletal Musculoskeletal: Present: gait normal - Psychiatric Psychiatric: Present: A&O x's 3, appropriate affect - Labs CBC & Chem 7: 11/14/16 08:47 11/14/16 08:44 Labs: Abnormal Lab Results - Last 24 Hours (Table) 11/14/16 11/14/16 Range/Units 08:44 08:47 WBC 12.4 H (3.8-10.6) k/uL RBC 4.12 L (4.30-5.90) m/uL Hgb 12.3 L (13.0-17.5) gm/dL Hct 38.7 L (39.0-53.0) % Neutrophils # 9.0 H (1.3-7.7) k/uL Calcium 7.4 L (8.4-10.2) mg/dL Total Protein 5.9 L (6.3-8.2) g/dL Albumin 3.3 L (3.5-5.0) g/dL Assessment and Plan Plan: #[id number] gentleman is admitted to the hospital with the nausea vomiting and abdominal pain secondary to small bowel obstruction due to a mass #2 ongoing tobacco use #3 GERD #4 history of hypertension. #5 history of depression/severe anxiety Plan ex-lap today vitals stable renal function improving.
[2016-11-14] MEDS ORDERED: BENZOCAINE/MENTHOL LOZENG 1 EACH LOZENGE MUCOUS MEM PRN (19:49)
[2016-11-14] MEDS: HYDROmorphone 1 MG/ML 1 ML SYRINGE IVP ONE ×2 (19:49→20:06)
--- NOTE | 2016-11-14 20:19 | P.OP ---
Date of Procedure: 11/14/16 Preoperative Diagnosis: Partial bowel obstruction Mass in the right lower quadrant Postoperative Diagnosis: Intraabdominal adhesions INtrabdominal abscess Ileocolic mesenteric mass Procedure(s) Performed: Diagnostic laparoscopy with lysis of adhesions converted to open exploratroy laparotomy with extensive lysis of adhesions Resection of ileocolic anstmaosis and anastamosis of ileum with transverse colon Excision of inflammatory/malignant? mass associated with bowel at the anastomotic site Drainage of intrabdominal abscess. Anesthesia: LOUANNA Surgeon: Jaspreet Norris Panel Machine Setter #1: Teofilo Oliveira Estimated Blood Loss (ml): 250 Pathology: other Condition: stable Disposition: PACU Description of Procedure: Indications for procedure Patient is a 66-year-old male who had an appendectomy that led to an ileocolic resection and anastomosis 35 years ago. FOr the last few years he's had intermittent complaints of abdominal discomfort pain crampy sensation. This is been progressively getting worse. He presented to his primary care doctor not feeling well with an elevated white count for which he was given antibiotics. He was discharged but continued to feel worse and stopped having any bowel movements or passing any flatus and presented to the emergency room with complete obstruction. He Was admitted and NG decompression performed. He did open up however a computed tomography scan of the abdomen the pelvis revealed a mass in the right lower quadrant with chronically dilated small bowel loops secondary to the partial obstruction. Due to the abdominal pain presence of the mass on CT as well as on physical exam the decision was made to do a diagnostic laparoscopy possible open bowel resection.Informed consent was obtained from the patient. Findings of the procedure 1extensive adhesions between the small bowel and the anterior abdominal wall at the site of the previous incision 2-multiple adhesions between the ileocolic anastomosis omentum the right paracolic gutter and the surrounding tissues. 3-abscess cavity posterior to the ileocolic anastomosis anterior to the duodenum 4-thickened mesentery of the ileocolic anastomosis with an inflammatory mass or probably malignant mass associated with it 5-chronically distended small bowel Description of procedure Patient was identified and a preoperative operating holding area and appropriate questions were answered and he was taken the operating room placed in the supine position and given general anesthesia with endotracheal intubation. NG tube was in place he had a Mena catheter placed. Abdomen was prepped and draped in the usual sterile surgical fashion. He already was on antibiotics and floor and did not need any further dosing. Appropriate timeout was called. Left upper quadrant was identified and after infiltration with local anesthesia and incision was made with 11 blade and using the Optiview technique abdominal cavity was entered and then insufflated to 15 mmHg after which 2 5 mm ports were placed in the left side. On entry into the abdominal cavity multiple adhesions were noted between the small bowel and the anterior abdominal wall at the site of the previous transverse incision. Much of it was taken down which the help of sharp and blunt dissection. There were omental adhesions as well as inflammatory adhesions between the site of the ileo-colic anastomosis and the anterior abdominal wall which were taken down with the help of LigaSure. Further delineation was attempted with the help of the LigaSure however there was a large palpable mass and due to the size of the mass and extending down into the mesentery decision was made to terminate the laparoscopic part of the procedure. At this time the laparoscopic instruments were removed and a midline incision was made with the help of electrocautery stated from the umbilicus all the way up to the xiphisternum and a few centimeters below the umbilicus down to the pubic tubercle. It was deepened to skin and subcutaneous tissue to the fascia which was incised abdominal cavity was entered and the full length of the incision was exposed. A Bookwalter was placed in the abdominal cavity was appropriately retracted. Extensive lysis of adhesion had to be performed to completely remove the small bowel from the anterior abdominal wall in the right lower quadrant and this freeing it up. There was significant amount of interloop adhesions as well which we had to be taken down. Further mobilization was done in the right paracolic gutter where the omentum and the previous site of the ileocolic anastomosis had formed thick adhesions. They were all taken down so as to completely delineate the site of the ileocolic anastomosis. In the crotch of the anastomosis a mass extending on the mesentry was noted. Furthermore tracing the small bowel up to the anastomosis there was an inflammatory mass or abscess posterior to it that was anterior to the duodenum. Blunt dissection was performed performed and abscess cavity was entered and the cavity contained a small in amount of pus that was sent for culture. Further dissection was carried along the right lateral margin superiorly so as to free up the ileocolic anastomosis. The colon had to be mobilized and therefore the hepatic flexure was taken down with the help of a sharp dissection as well as the ligature. Further more the dissection was carried posteriorly in the plane anterior to the duodenum which was completely exposed. There were adhesions between this inflammatory mass and the duodenum which had to be carefully taken with sharp and blunt dissection. As both the ileal side to her transverse colon size were exposed decision was made to transect the small bowel after making a hole in the mesentery of the small bowel the JOEL was fired across it thus transecting the small bowel proximal to the area of the anastomosis. Ligasure was used to dissected through the mesentery towards the site of the inflammatory mass and abscess cavity. However at this time there was significant amount of bleeding was encountered and Dr. Oliveira was requested for assistance. The abdominal cavity was packed with sponges and then sequntially yhe sponges were removed and Jessica clamp was applied across the bleeding blood vessel which was inferior and anterior to the duodenum. Ligature was used furthermore to clarify this area. The clamped mass was then ligated with the help of an 0 silk tie thus completely securing the bleeding. There was further bleeding from the small bowel side of the mesentery which was controlled with the help of ligature. Small hole was made within the mesentery of the transverse colon and this was transected with the help of a JOEL. Ligasure was then used to go across the mesentery all the way down to this mass/abscess cavity which was then transected with the help of blunt sharp and ligature dissection and removed. There was continued bleeding at around the site of the small bowel mesentery and was controlled with 2-0 silk sutures. That resulted in approximately 5 inches of small bowel being dusky and therefore another 6 inches of small bowel had to be resected with the help of JOEL to healthy margins. The mesentery was transected with the LigaSure. After this the healthy remaining transverse colon and small bowel were aligned with 2-0 silk sutures and then a side to side anastomosis was performed using a JOEL and completed with the help of a TIA. The mesentery defect was closed. Bleeding was controlled completely. Abdomen was thoroughly irrigated and sucked dry. 2 round drains were placed in the right and left lower quadrant one in the right paracolic gutter and the other in the pelvis. It was secured with the help of 2-0 nylon. The small bowel was run all the way up to the ligament of Treitz and there were no other abnormality of the liver or stomach. NG tube to be in appropriate position. Abdomen was thoroughly irrigated and sucked dry. The midline was closed with a running 1 PDS suture single-stranded. Skin was closed kaleb. Provena dressing was applied on the midline incision. 4 x 4 dressing on the 5 mm port sites. Patient ordered procedure well there were no other complications and he was extubated and taken to recovery room in stable condition NG tube and Mena catheter were left in place. He was taken to the recovery room in stable condition to be admitted to the ICU for observation
[2016-11-14] MEDS ORDERED: FAMOTIDINE 20 MG/2 ML VIAL IV SCH (21:00)
[2016-11-14 21:13] LABS: Glucose,Whole Blood 136 mg/dL (75-99)
[2016-11-14] MEDS: ALVIMOPAN 12 MG CAPSULE PO SCH (21:41)
[2016-11-14] MEDS: D5-0.45% NACL WITH KCL 20MEQ/L 1,000 ML IV SCH (21:47)
[2016-11-14] MEDS ORDERED: SODIUM CHLORIDE 0.9% 1,000 ML IV ONE (23:05)
[2016-11-15] MEDS: HEPARIN SODIUM,PORCINE 5,000 UNIT/ML 1 ML VIAL SQ SCH ×4 (00:39→23:56)
[2016-11-15] MEDS: HYDROmorphone 1 MG/ML 1 ML SYRINGE IV PRN ×3 (02:30→12:30)
[2016-11-15 04:26] LABS: Basophils % (A) 0 %; CH 29.1; CHCM 30.2; Eosinophils % (A) 0 %; HCT 36.2 % (39.0-53.0); HDW 2.33; HGB 11.2 gm/dL (13.0-17.5); Hypochromasia Moderate; Luc # (Auto) 0.14; Luc % (Auto) 1; Lymphocytes # (A) 1.8 k/uL (1.0-4.8); Lymphocytes % (A) 12 %; MCH 29.9 pg (25.0-35.0); MCV 96.7 fL (80.0-100.0); Mean Platelet Volume 6.8; Monocytes % (A) 6 %; Neutrophils # (A) 12.2 k/uL (1.3-7.7); Neutrophils % (A) 80 %; RBC 3.74 m/uL (4.30-5.90); RDW 12.7 % (11.5-15.5); WBC 15.2 k/uL (3.8-10.6); WBC (Perox) 16.35
[2016-11-15 04:58] LABS: Anion Gap 9 mmol/L; Calcium 6.8 mg/dL (8.4-10.2); Carbon Dioxide 22 mmol/L (22-30); Chloride 109 mmol/L (98-107); Glucose 137 mg/dL (74-99); Non-African American GFR(MDRD) >60 (>60 ml/min/1.73 sqM); Sodium 140 mmol/L (137-145); Total Bilirubin 0.9 mg/dL (0.2-1.3)
[2016-11-15 05:06] LABS: ALT 32 U/L (21-72); AST 38 U/L (17-59); Alkaline Phosphatase 33 U/L (38-126); Blood Urea Nitrogen 17 mg/dL (9-20); Potassium 4.6 mmol/L (3.5-5.1)
[2016-11-15 05:07] LABS: Magnesium 0.9 mg/dL (1.6-2.3)
[2016-11-15] MEDS ORDERED: Magnesium Replacement Protocol 1 EACH MISC MISCELLANE PRN (05:11)
[2016-11-15] MEDS: D5-0.45% NACL WITH KCL 20MEQ/L 1,000 ML IV SCH ×3 (05:21→23:55)
[2016-11-15] MEDS: PIPERACILLIN-TAZOBACTAM 3.375 GM in DEXTROSE/WATER 1 50ML.BAG IVPB SCH ×4 (05:22→19:49)
[2016-11-15] MEDS: SODIUM CHLORIDE 0.9% 1,000 ML IV SCH ×3 (05:22→18:15)
[2016-11-15] MEDS: KETOROLAC 30 MG/ML 1 ML VIAL IVP PRN ×3 (05:24→18:59)
[2016-11-15] MEDS: MAGNESIUM SULFATE-D5W PMX 1 GM in DEXTROSE/WATER 1 100ML.BAG IVPB SCH ×6 (05:40→19:49)
[2016-11-15 06:37] LABS: Glucose,Whole Blood 151 mg/dL (75-99)
[2016-11-15] MEDS: ALVIMOPAN 12 MG CAPSULE PO SCH ×2 (09:14→19:45)
[2016-11-15] MEDS: ATENOLOL 50 MG TAB PO SCH (09:15)
[2016-11-15] MEDS: busPIRone HCl 10 MG TAB PO SCH ×4 (09:15→23:51)
[2016-11-15] MEDS: PANTOPRAZOLE 40 MG/10 ML VIAL IV SCH (09:15)
[2016-11-15 12:19] LABS: Glucose,Whole Blood 172 mg/dL (75-99)
--- NOTE | 2016-11-15 12:50 | P.CNPUL ---
History of Present Illness Consult date: 11/15/16 Requesting physician: Maryanne Abdalla Reason for consult: other (Intensive care unit management) Chief complaint: Abdominal pain History of present illness: This is a 66-year-old white male with history of ongoing abdominal pain for the last several weeks. His pain was associated with bloating, no stool for the last several days, and he normally has 3-4 stools on a daily basis. 3 weeks ago , patient was seen at the [place] in the [place], and he was given antibiotics, and advised to go to the ER if his condition gets any worse. Apparently his pain became severe, he presented to the ER yesterday complaining of worsening abdominal pain, no fever no chills, he had some sensation of nausea but no active vomiting. Patient also lost about 10 pounds over the last a few weeks. Appetite has been diminished. Upon evaluation in the ER, the patient was noted to have leukocytosis with WBC count of 19.2 was afebrile but slightly tachycardic, his creatinine was elevated at 1.6, CT of the abdomen and pelvis showed wall thickening and a masslike lesion involving the terminal ileum and cecum. This was felt to be either inflammatory or neoplasm in nature. Distal small bowel reflected partial small bowel obstruction picture. Patient was seen by surgery on consultation, and there was a concern about partial bowel obstruction and mass in the right lower quadrant hence the patient underwent diagnostic laparoscopy with lysis of adhesions, converted to open exploratory laparotomy with extensive lysis of adhesions, resection iliocolic mesenteric mass, anastomosis of ileum and transverse colon and excision of mass associated with bowel at the anastomotic site drainage of intra-abdominal abscess was also done. Postoperatively patient was extubated, but considering his condition he was transferred to the ICU and I was asked to see him on consultation. Overnight there was an issue with urine output, patient was given fluid boluses , and this morning seems to be a nonissue. I evaluated the patient this morning , seems to be doing relatively well, all his labs were reviewed and they seem to be unremarkable, BUN is 17 and creatinine is 1.10 status 15.2 hemoglobin is 11.2. Patient has a nasogastric tube in place, he had KANDI drains noted with bloody drainage noted in the drains. Antibiotics adorno, patient is on Zosyn, he is also on GI and DVT prophylaxis. Review of Systems Constitutional: Weight loss over the last 2 weeks. Secondary to poor appetite and abdominal pain. HEENT: Negative Chest: No cough no wheezing no shortness of breath. Cardiac: No chest pain, no palpitations, denies any symptoms of angina. No orthopnea. And no PND. GI: Please refer to HPI Genitourinary: No dysuria frequency or urgency. Musko skeletal: No aches or pains Neurologic: No headaches no blurred vision no dizziness. Hematologic: Negative. Psychiatric: No suicidal or homicidal thoughts or ideations. Past Medical History Past Medical History: GERD/Reflux, Hypertension Additional Past Medical History / Comment(s): IBS, "HERNIATED DICS LOWER BACK" History of Any Multi-Drug Resistant Organisms: None Reported Past Surgical History: Appendectomy, Bowel Resection, Tubal Ligation Additional Past Surgical History / Comment(s): "35 YEARS AGO HAD BOWEL SX- REMOVED A FOOT OF INTESTINE D/T LOW GRADE INFECTION" Past Anesthesia/Blood Transfusion Reactions: No Reported Reaction Past Psychological History: Anxiety Additional Psychological History / Comment(s): PT IS , LIVES IN A 2 STORY HOME THAT HAS 4 PORCH STEPS. AND 20 STEPS TO UPSATIRS. NO PETS. NO OUTSIDE SERVICES. NO MEDICAL EQUIPMENT. PT SERVED IN THE [employer] AND WORKED AN [employer] Smoking Status: Current every day smoker Past Alcohol Use History: Heavy Additional Past Alcohol Use History / Comment(s): STARTED SMOPKING AT AGE 16 SMOKES 1/2 PPD. STATED FOR 20 YEARS DRANK MOD TO HEAVY THEN QUIT AGE 48. Past Drug Use History: None Reported - Past Family History Mother Family Medical History: Diabetes Mellitus Medications and Allergies Home Medications Medication Instructions Recorded Confirmed Type Atenolol [Tenormin] 50 mg PO DAILY 11/12/16 11/12/16 History Multivitamins, Thera [Multivitamin 1 tab PO DAILY 11/12/16 11/12/16 History (formulary)] Omeprazole 20 mg PO DAILY 11/12/16 11/12/16 History busPIRone HCL 10 mg PO QID 11/12/16 11/12/16 History Allergies Allergy/AdvReac Type Severity Reaction Status Date / Time No Known Allergies Allergy Verified 11/12/16 16:59 Physical Exam Vitals: Vital Signs Temp Pulse Pulse Resp BP BP Pulse Ox 11/15/16 12:00 98.2 F 74 20 140/78 97 04/15/17 11:00 74 18 123/70 95 11/15/16 10:00 74 20 114/67 98 11/15/16 09:00 77 20 111/68 95 11/15/16 08:00 98 F 85 117/72 94 L 11/15/16 07:00 81 14 132/70 95 11/15/16 06:00 77 14 134/73 100 11/15/16 05:00 85 16 131/71 98 11/15/16 04:00 98.8 F 80 14 116/67 98 11/15/16 03:00 85 15 118/72 100 11/15/16 02:00 93 14 134/73 99 11/15/16 01:00 88 16 119/78 98 11/15/16 00:30 107 H 123/62 98 11/15/16 00:00 98.8 F 90 114/59 97 11/14/16 23:30 94 122/70 94 L 11/14/16 23:00 90 12 106/62 97 11/14/16 22:30 94 13 94/59 97 11/14/16 22:00 95 11 L 96/56 96 11/14/16 21:30 95 12 124/67 95 11/14/16 21:00 98.1 F 100 14 112/70 90 L 11/14/16 20:15 103 H 20 117/58 99 11/14/16 20:00 100 20 109/56 99 11/14/16 19:45 100 24 120/62 99 11/14/16 19:34 98.8 F 103 H 23 135/63 99 11/14/16 13:52 98.0 F 91 16 145/81 94 L Intake and Output 11/14/16 11/15/16 11/15/16 22:59 06:59 14:59 Intake Total 2750 2062.5 982.5 Output Total 771 371 339 Balance 1979 1691.5 643.5 Intake: IV 2500 Intake, IV Titration 250 2062.5 982.5 Amount D5-0.45% NaCl with KCl 125 1000 750 20Meq/l 1,000 ml @ 125 mls/hr IV .Q8H [facility] Rx#: [id number] Lactated Ringers 1,000 ml 125 As IV .STK-MED ONE Rx#: [id number] Magnesium Sulfate-D5w Pmx 200 1 gm In Dextrose/Water 1 100ml.bag @ 100 mls/hr IVPB Q1H [facility] Rx#: [id number] Piperacillin-Tazobactam 3 62.5 12.5 .375 gm In Dextrose/Water 1 50ml.bag @ 12.5 mls/hr IVPB Q8H [facility] Rx#: [id number] Sodium Chloride 0.9% 1, 20 000 ml @ 125 mls/hr IV . Q8H [facility] Rx#:[id number] Sodium Chloride 0.9% 1, 1000 000 ml @ 999 mls/hr IV . Q1H1M [facility] Rx#:[id number] Output: Urine 521 371 339 Estimated Blood Loss 250 Other: Voiding Method Indwelling Catheter Indwelling Catheter Weight 104.7 kg 104.7 kg Patient Weight 11/16/16 06:59 Weight 104.7 kg Physical Exam: Revealed a 66-year-old white male in no distress. HEENT:[Neck is supple.] [No neck masses.] [No thyromegaly.] [No JVD.] Nasogastric tube noted in place, intact. Chest: [Diminished breath sounds at the bases no crackles or rhonchi or wheezes. ] Cardiac Exam: [Normal S1 and S2, no S3 gallop, no murmur.] Abdomen: [Soft, nontender, postsurgical, KANDI drain is noted. no megaly, no rebound, no guarding, no bowel sounds Extremities: [No clubbing, no edema, no cyanosis.] Neurological Exam: [No focal neurologic deficit.] Results - Laboratory Findings CBC and BMP: 11/15/16 04:10 11/15/16 04:10 PT/INR, D-dimer PT 11.2 sec (9.0-12.0) 11/12/16 16:45 INR 1.1 (<1.1) 11/12/16 16:45 Abnormal lab findings: Abnormal Labs 11/13/16 11/13/16 11/14/16 08:35 08:35 08:44 WBC 14.2 H RBC Hgb Hct Plt Count 480 H Neutrophils # 9.8 H Potassium 5.2 H Chloride Creatinine 1.47 H Glucose 101 H POC Glucose (mg/dL) Calcium 7.7 L 7.4 L Magnesium Alkaline Phosphatase Total Protein 5.9 L Albumin 3.3 L 11/14/16 11/14/16 11/15/16 08:47 20:59 04:10 WBC 12.4 H RBC 4.12 L Hgb 12.3 L Hct 38.7 L Plt Count Neutrophils # 9.0 H Potassium Chloride 109 H Creatinine Glucose 137 H POC Glucose (mg/dL) 136 H Calcium 6.8 L Magnesium 0.9 L* Alkaline Phosphatase 33 L Total Protein 5.0 L Albumin 2.8 L 11/15/16 11/15/16 11/15/16 04:10 06:34 12:06 WBC 15.2 H RBC 3.74 L Hgb 11.2 L Hct 36.2 L Plt Count Neutrophils # 12.2 H Potassium Chloride Creatinine Glucose POC Glucose (mg/dL) 151 H 172 H Calcium Magnesium Alkaline Phosphatase Total Protein Albumin - Diagnostic Findings Additional studies: Report of CT of the abdomen and pelvis was reviewed. Assessment and Plan Plan: Impression: 1 acute partial bowel obstruction and mass in right lower quadrant 2 status post exploratory laparotomy with extensive lysis of adhesions, resection of ileocolic anastomosis and anastomosis of the ileum and transverse colon, excision of inflammatory/malignant mass at the anastomosis site, drainage of intra-abdominal abscess. Postoperative day #1. 3 history of essential hypertension, irritable bowel syndrome, previous bowel resection and previous appendectomy, and history of anxiety. Recommendation: Continue present postoperative medications including antibiotics , GI and DVT prophylaxis, incentive spirometry, early ambulation, patient can be transferred out of the ICU since he seems to be hemodynamically stable, and his postoperative course seems to be relatively uneventful so far. Will follow on when necessary basis. Time with Patient: Greater than 30
[2016-11-15] MEDS: HYDROmorphone 1 MG/ML 1 ML SYRINGE IVP PRN ×5 (15:36→23:56)
[2016-11-15 16:38] LABS: Potassium 4.2 mmol/L (3.5-5.1)
--- NOTE | 2016-11-15 17:21 | P.PN ---
Subjective 66-year-old gentleman comes in the hospital with progressive worsening of abdominal pain diffuse in nature mostly focused around the umbilicus for the last 2-3 days. Patient states that over the last 2 weeks he has had intermittent pains. Or the last 2-3 days patient has had progressive worsening of pain and has had intractable nausea. Patient states that he has had some watery bowel movements over the last 1-2 weeks. States that he has lost over 10 pounds over the last 2-3 weeks. In the emergency room patient was noted to have a computed tomography scan of the abdomen pelvis was noted to have a masslike region of the terminal ileum and the cecum. States that his last colonoscopy was over 10 years ago. Patient was noted to have a masslike area causing a small bowel obstruction. An NG tube was placed. During the time of my evaluation patient states he feels slightly better however does continue complain of abdominal pain around the location described above. Family history denies having any history of colon cancer or any other cancer history. Patient does smoke about half a pack of cigarettes daily. 11/14/16 states to be feeling slightly better continues to have abdominal pain has watery bms no fevers, chills, cough, markie, chest pain, urinary urgency or frequency reported.NG tube in place 11/15/16 seen post op day 1 Pain is controlled has not passed gas Denies significant cough, MARKIE , chest pain NG in place. Objective - Vital Signs Vital signs: Vital Signs Temp 98.3 F 11/15/16 16:00 Pulse 84 11/15/16 17:00 Resp 20 11/15/16 17:00 BP 147/75 11/15/16 17:00 Pulse Ox 94 L 11/15/16 17:00 Intake & Output 11/14/16 11/15/16 11/15/16 18:59 06:59 18:59 Intake Total 3400 2912.5 1522.5 Output Total 600 542 649 Balance 2800 2370.5 873.5 Weight 104.7 kg 104.7 kg Intake: IV 3400 600 30 ns 30 Intake, IV Titration 2312.5 1492.5 Amount D5-0.45% NaCl with KCl 1125 1250 20Meq/l 1,000 ml @ 125 mls/hr IV .Q8H [facility] Rx#: [id number] Lactated Ringers 1,000 ml 125 As IV .STK-MED ONE Rx#: [id number] Magnesium Sulfate-D5w Pmx 200 1 gm In Dextrose/Water 1 100ml.bag @ 100 mls/hr IVPB Q1H [facility] Rx#: [id number] Piperacillin-Tazobactam 3 62.5 12.5 .375 gm In Dextrose/Water 1 50ml.bag @ 12.5 mls/hr IVPB Q8H [facility] Rx#: [id number] Sodium Chloride 0.9% 1, 30 000 ml @ 125 mls/hr IV . Q8H [facility] Rx#:[id number] Sodium Chloride 0.9% 1, 1000 000 ml @ 999 mls/hr IV . Q1H[facility] Rx#:[id number] Output: Drainage 45 Left Abdomen 0 Medial Abdomen 0 Right Abdomen 45 Urine 350 542 604 Estimated Blood Loss 250 Other: Voiding Method Toilet Indwelling Catheter Indwelling Catheter # Voids 3 - Constitutional General appearance: Present: no acute distress - EENT Eyes: Present: PERRLA - Neck Neck: Present: normal ROM. Absent: rigidity - Respiratory Respiratory: bilateral: CTA, diminished, negative: dullness, rales, rhonchi - Cardiovascular Rhythm: regular Heart sounds: normal: S1, S2 Abnormal Heart Sounds: Absent: systolic murmur - Gastrointestinal General gastrointestinal: Present: soft Localized gastrointestinal: tender: diffuse (2 KANDI drains noted, incision site with vac draining. hypoactive bowel sounds. ) - Neurologic Neurologic: Present: CNII-XII intact. Absent: focal deficits - Psychiatric Psychiatric: Present: A&O x's 3, appropriate affect - Labs CBC & Chem 7: 11/15/16 04:10 11/15/16 16:11 Labs: Abnormal Lab Results - Last 24 Hours (Table) 11/14/16 11/15/16 11/15/16 Range/Units 20:59 04:10 04:10 WBC 15.2 H (3.8-10.6) k/uL RBC 3.74 L (4.30-5.90) m/uL Hgb 11.2 L (13.0-17.5) gm/dL Hct 36.2 L (39.0-53.0) % Neutrophils # 12.2 H (1.3-7.7) k/uL Chloride 109 H (98-107) mmol/L Glucose 137 H (74-99) mg/dL POC Glucose (mg/dL) 136 H (75-99) mg/dL Calcium 6.8 L (8.4-10.2) mg/dL Magnesium 0.9 L* (1.6-2.3) mg/dL Alkaline Phosphatase 33 L (38-126) U/L Total Protein 5.0 L (6.3-8.2) g/dL Albumin 2.8 L (3.5-5.0) g/dL 11/15/16 11/15/16 Range/Units 06:34 12:06 WBC (3.8-10.6) k/uL RBC (4.30-5.90) m/uL Hgb (13.0-17.5) gm/dL Hct (39.0-53.0) % Neutrophils # (1.3-7.7) k/uL Chloride (98-107) mmol/L Glucose (74-99) mg/dL POC Glucose (mg/dL) 151 H 172 H (75-99) mg/dL Calcium (8.4-10.2) mg/dL Magnesium (1.6-2.3) mg/dL Alkaline Phosphatase (38-126) U/L Total Protein (6.3-8.2) g/dL Albumin (3.5-5.0) g/dL Microbiology - Last 24 Hours (Table) 11/14/16 18:45 Gram Stain - Preliminary Abdomen Wound Culture - Preliminary 11/14/16 18:45 Anaerobic Culture - Preliminary Abdomen Assessment and Plan Plan: #[id number] gentleman is admitted to the hospital with the nausea vomiting and abdominal pain secondary to small bowel obstruction due to a mass #2 ongoing tobacco use #3 GERD #4 history of hypertension. #5 history of depression/severe anxiety s/p ex lap, s/p LOS, mass resection, and drainage of abscess. acute hypoxic respiratory failure, titrate off o2 Sepsis sec to intraabdominal infection Plan abx, await cultures biopsy results Drains in place IVF continue jc Vitals stable. discussed with Dr Norris.
[2016-11-15 18:02] LABS: Glucose,Whole Blood 151 mg/dL (75-99)
[2016-11-16] MEDS: KETOROLAC 30 MG/ML 1 ML VIAL IVP PRN ×4 (00:01→18:55)
[2016-11-16] MEDS: HYDROmorphone 1 MG/ML 1 ML SYRINGE IVP PRN ×10 (02:03→23:40)
[2016-11-16 02:14] LABS: Glucose,Whole Blood 132 mg/dL (75-99)
[2016-11-16] MEDS: PIPERACILLIN-TAZOBACTAM 3.375 GM in DEXTROSE/WATER 1 50ML.BAG IVPB SCH ×3 (03:42→20:36)
[2016-11-16] MEDS: D5-0.45% NACL WITH KCL 20MEQ/L 1,000 ML IV SCH ×3 (06:10→17:14)
[2016-11-16 07:48] LABS: Basophils % (A) 0 %; CH 29.4; Eosinophils # (A) 0.1 k/uL (0-0.7); Eosinophils % (A) 1 %; HDW 2.34; HGB 10.1 gm/dL (13.0-17.5); Hypochromasia Slight; Luc % (Auto) 1; Lymphocytes # (A) 1.4 k/uL (1.0-4.8); Lymphocytes % (A) 12 %; MCH 29.2 pg (25.0-35.0); MCHC 30.6 g/dL (31.0-37.0); MCV 95.3 fL (80.0-100.0); Mean Platelet Volume 6.9; Monocytes # (A) 0.6 k/uL (0-1.0); Monocytes % (A) 5 %; Neutrophils # (A) 9.6 k/uL (1.3-7.7); Neutrophils % (A) 81 %; RBC 3.46 m/uL (4.30-5.90); RDW 12.7 % (11.5-15.5); WBC 11.9 k/uL (3.8-10.6); WBC (Perox) 12.92
[2016-11-16 08:03] LABS: ALT 25 U/L (21-72); AST 31 U/L (17-59); Alkaline Phosphatase 42 U/L (38-126); Anion Gap 9 mmol/L; Blood Urea Nitrogen 10 mg/dL (9-20); Calcium 7.3 mg/dL (8.4-10.2); Carbon Dioxide 24 mmol/L (22-30); Chloride 106 mmol/L (98-107); Glucose 125 mg/dL (74-99); Magnesium 1.9 mg/dL (1.6-2.3); Non-African American GFR(MDRD) >60 (>60 ml/min/1.73 sqM); Phosphorous 2.1 mg/dL (2.5-4.5); Potassium 4.4 mmol/L (3.5-5.1); Sodium 139 mmol/L (137-145); Total Bilirubin 0.7 mg/dL (0.2-1.3); Total Protein 5.2 g/dL (6.3-8.2)
[2016-11-16] MEDS: PANTOPRAZOLE 40 MG/10 ML VIAL IV SCH (09:38)
[2016-11-16] MEDS: ALVIMOPAN 12 MG CAPSULE PO SCH ×2 (09:39→21:30)
[2016-11-16] MEDS: HEPARIN SODIUM,PORCINE 5,000 UNIT/ML 1 ML VIAL SQ SCH ×3 (09:39→23:39)
[2016-11-16] MEDS: busPIRone HCl 10 MG TAB PO SCH ×4 (09:40→21:30)
[2016-11-16] MEDS: ATENOLOL 50 MG TAB PO SCH (09:40)
--- NOTE | 2016-11-16 14:49 | P.PN ---
Subjective Principal diagnosis: Postop day 2 after exploratory laparotomy The patient has moved up from the ICU and initial attempts of removing the Mena catheter one successful and he had some retention for which the catheter was replaced. Not having any nausea. Pain is still moderate to severe. He is not getting up a lot. He is using incentive spirometer. Continues to produce was discharged from the [facility]. Granulation is somewhat limited. Objective - Vital Signs Vital signs: Vital Signs Temp 98.2 F 11/16/16 14:36 Pulse 85 11/16/16 14:36 Resp 15 11/16/16 14:36 BP 152/78 11/16/16 14:36 Pulse Ox 97 11/16/16 14:36 Intake & Output 11/15/16 11/16/16 11/16/16 18:59 06:59 18:59 Intake Total 1902.5 1235 Output Total 724 730 105 Balance 1178.5 505 -105 Weight 104.7 kg Intake: IV 40 ns 40 Intake, IV Titration 1862.5 1235 Amount D5-0.45% NaCl with KCl 1500 1125 20Meq/l 1,000 ml @ 125 mls/hr IV .Q8H [facility] Rx#: [id number] Magnesium Sulfate-D5w Pmx 200 1 gm In Dextrose/Water 1 100ml.bag @ 100 mls/hr IVPB Q1H [facility] Rx#: [id number] Magnesium Sulfate-D5w Pmx 100 100 1 gm In Dextrose/Water 1 100ml.bag @ 100 mls/hr IVPB Q1H [facility] Rx#: [id number] Piperacillin-Tazobactam 3 12.5 .375 gm In Dextrose/Water 1 50ml.bag @ 12.5 mls/hr IVPB Q8H [facility] Rx#: [id number] Sodium Chloride 0.9% 1, 50 10 000 ml @ 10 mls/hr IV . Q24H [facility] Rx#:[id number] Output: Gastric Drainage 100 Drainage 45 100 105 Left Abdomen 0 20 5 Medial Abdomen 0 0 Right Abdomen 45 80 100 Urine 679 530 Other: Voiding Method Indwelling Catheter Indwelling Catheter Indwelling Catheter - Constitutional General appearance: Present: mild distress - EENT Eyes: Present: PERRLA - Cardiovascular Rhythm: regular - Gastrointestinal Gastrointestinal Comment(s): Patient has a dressing in JPs in place. Minimal amount of drainage from one of the wounds. Sonja dressing is in place. Abdomen is moderately distended but soft. Urine output is adequate low. - Labs CBC & Chem 7: 11/16/16 06:58 11/16/16 06:58 Labs: Abnormal Lab Results - Last 24 Hours (Table) 11/15/16 11/16/16 11/16/16 Range/Units 18:00 02:11 06:58 WBC (3.8-10.6) k/uL RBC (4.30-5.90) m/uL Hgb (13.0-17.5) gm/dL Hct (39.0-53.0) % MCHC (31.0-37.0) g/dL Neutrophils # (1.3-7.7) k/uL Glucose 125 H (74-99) mg/dL POC Glucose (mg/dL) 151 H 132 H (75-99) mg/dL Calcium 7.3 L (8.4-10.2) mg/dL Phosphorus 2.1 L (2.5-4.5) mg/dL Total Protein 5.2 L (6.3-8.2) g/dL Albumin 2.7 L (3.5-5.0) g/dL 11/16/16 Range/Units 06:58 WBC 11.9 H (3.8-10.6) k/uL RBC 3.46 L (4.30-5.90) m/uL Hgb 10.1 L (13.0-17.5) gm/dL Hct 33.0 L (39.0-53.0) % MCHC 30.6 L (31.0-37.0) g/dL Neutrophils # 9.6 H (1.3-7.7) k/uL Glucose (74-99) mg/dL POC Glucose (mg/dL) (75-99) mg/dL Calcium (8.4-10.2) mg/dL Phosphorus (2.5-4.5) mg/dL Total Protein (6.3-8.2) g/dL Albumin (3.5-5.0) g/dL Assessment and Plan (1) Small bowel obstruction Status: Acute Plan: Postoperative and is out of the ICU. From the surgical standpoint is doing okay. We will encourage incentive spirometry and ambulation. I expect he will develop an ileus due to the extensive lysis of adhesions therefore PICC line was placed and TPN started in the next 24 hours. We will attempt to take the Mena catheter out in 24-48 hours after starting the Flomax. We'll work on the pain control as well.
--- NOTE | 2016-11-16 16:18 | P.PN ---
Subjective 66-year-old gentleman comes in the hospital with progressive worsening of abdominal pain diffuse in nature mostly focused around the umbilicus for the last 2-3 days. Patient states that over the last 2 weeks he has had intermittent pains. Or the last 2-3 days patient has had progressive worsening of pain and has had intractable nausea. Patient states that he has had some watery bowel movements over the last 1-2 weeks. States that he has lost over 10 pounds over the last 2-3 weeks. In the emergency room patient was noted to have a computed tomography scan of the abdomen pelvis was noted to have a masslike region of the terminal ileum and the cecum. States that his last colonoscopy was over 10 years ago. Patient was noted to have a masslike area causing a small bowel obstruction. An NG tube was placed. During the time of my evaluation patient states he feels slightly better however does continue complain of abdominal pain around the location described above. Family history denies having any history of colon cancer or any other cancer history. Patient does smoke about half a pack of cigarettes daily. 11/14/16 states to be feeling slightly better continues to have abdominal pain has watery bms no fevers, chills, cough, markie, chest pain, urinary urgency or frequency reported.NG tube in place 11/15/16 seen post op day 1 Pain is controlled has not passed gas Denies significant cough, MARKIE , chest pain NG in place. 11/16/16 Not passing gas, states pain is slightly improved no fevers chills,chest pain, MARKIE Objective - Vital Signs Vital signs: Vital Signs Temp 98.2 F 11/16/16 14:36 Pulse 85 11/16/16 14:36 Resp 15 11/16/16 14:36 BP 152/78 11/16/16 14:36 Pulse Ox 97 11/16/16 14:36 Intake & Output 11/15/16 11/16/16 11/16/16 18:59 06:59 18:59 Intake Total 1902.5 1235 Output Total 724 730 105 Balance 1178.5 505 -105 Weight 104.7 kg Intake: IV 40 ns 40 Intake, IV Titration 1862.5 1235 Amount D5-0.45% NaCl with KCl 1500 1125 20Meq/l 1,000 ml @ 125 mls/hr IV .Q8H [facility] Rx#: [id number] Magnesium Sulfate-D5w Pmx 200 1 gm In Dextrose/Water 1 100ml.bag @ 100 mls/hr IVPB Q1H [facility] Rx#: [id number] Magnesium Sulfate-D5w Pmx 100 100 1 gm In Dextrose/Water 1 100ml.bag @ 100 mls/hr IVPB Q1H [facility] Rx#: [id number] Piperacillin-Tazobactam 3 12.5 .375 gm In Dextrose/Water 1 50ml.bag @ 12.5 mls/hr IVPB Q8H [facility] Rx#: [id number] Sodium Chloride 0.9% 1, 50 10 000 ml @ 10 mls/hr IV . Q24H [facility] Rx#:[id number] Output: Gastric Drainage 100 Drainage 45 100 105 Left Abdomen 0 20 5 Medial Abdomen 0 0 Right Abdomen 45 80 100 Urine 679 530 Other: Voiding Method Indwelling Catheter Indwelling Catheter Indwelling Catheter - Constitutional General appearance: Present: no acute distress - EENT Eyes: Present: PERRLA - Neck Neck: Present: normal ROM. Absent: rigidity - Respiratory Respiratory: bilateral: CTA, negative: dullness, rales, rhonchi, wheezing - Cardiovascular Rhythm: regular Heart sounds: normal: S1, S2 Abnormal Heart Sounds: Absent: systolic murmur - Gastrointestinal General gastrointestinal: Present: soft. Absent: organomegaly Localized gastrointestinal: tender: diffuse (bahman drains in place.) - Neurologic Neurologic: Present: CNII-XII intact. Absent: focal deficits - Psychiatric Psychiatric: Present: A&O x's 3, appropriate affect - Labs CBC & Chem 7: 11/16/16 06:58 11/16/16 06:58 Labs: Abnormal Lab Results - Last 24 Hours (Table) 11/15/16 11/16/16 11/16/16 Range/Units 18:00 02:11 06:58 WBC (3.8-10.6) k/uL RBC (4.30-5.90) m/uL Hgb (13.0-17.5) gm/dL Hct (39.0-53.0) % MCHC (31.0-37.0) g/dL Neutrophils # (1.3-7.7) k/uL Glucose 125 H (74-99) mg/dL POC Glucose (mg/dL) 151 H 132 H (75-99) mg/dL Calcium 7.3 L (8.4-10.2) mg/dL Phosphorus 2.1 L (2.5-4.5) mg/dL Total Protein 5.2 L (6.3-8.2) g/dL Albumin 2.7 L (3.5-5.0) g/dL 11/16/16 Range/Units 06:58 WBC 11.9 H (3.8-10.6) k/uL RBC 3.46 L (4.30-5.90) m/uL Hgb 10.1 L (13.0-17.5) gm/dL Hct 33.0 L (39.0-53.0) % MCHC 30.6 L (31.0-37.0) g/dL Neutrophils # 9.6 H (1.3-7.7) k/uL Glucose (74-99) mg/dL POC Glucose (mg/dL) (75-99) mg/dL Calcium (8.4-10.2) mg/dL Phosphorus (2.5-4.5) mg/dL Total Protein (6.3-8.2) g/dL Albumin (3.5-5.0) g/dL Assessment and Plan Plan: [id number] gentleman is admitted to the hospital with the nausea vomiting and abdominal pain secondary to small bowel obstruction due to a mass #2 ongoing tobacco use #3 GERD #4 history of hypertension. #5 history of depression/severe anxiety s/p ex lap, s/p LOS, mass resection, and drainage of abscess. acute hypoxic respiratory failure, titrate off o2 Sepsis sec to intraabdominal infection Plan abx, await cultures biopsy results Drains in place IVF continue jc, encourage activity Vitals stable.
[2016-11-16 20:34] LABS: Glucose,Whole Blood 137 mg/dL (75-99)
[2016-11-17] MEDS: HYDROmorphone 1 MG/ML 1 ML SYRINGE IVP PRN ×9 (02:26→19:33)
[2016-11-17] MEDS: PIPERACILLIN-TAZOBACTAM 3.375 GM in DEXTROSE/WATER 1 50ML.BAG IVPB SCH ×3 (04:54→19:45)
[2016-11-17 06:22] LABS: Glucose,Whole Blood 127 mg/dL (75-99)
[2016-11-17] MEDS: D5-0.45% NACL WITH KCL 20MEQ/L 1,000 ML IV SCH ×3 (06:22→16:00)
[2016-11-17 07:04] LABS: Basophils # (A) 0.1 k/uL (0-0.2); Basophils % (A) 0 %; CH 29.7; Eosinophils # (A) 0.3 k/uL (0-0.7); Eosinophils % (A) 3 %; HCT 36.6 % (39.0-53.0); HDW 2.56; HGB 11.5 gm/dL (13.0-17.5); Luc # (Auto) 0.17; Luc % (Auto) 1; Lymphocytes # (A) 1.7 k/uL (1.0-4.8); Lymphocytes % (A) 14 %; MCH 29.3 pg (25.0-35.0); MCHC 31.5 g/dL (31.0-37.0); MCV 93.1 fL (80.0-100.0); Mean Platelet Volume 6.6; Monocytes # (A) 0.6 k/uL (0-1.0); Monocytes % (A) 5 %; Neutrophils # (A) 9.3 k/uL (1.3-7.7); Neutrophils % (A) 76 %; RBC 3.93 m/uL (4.30-5.90); RDW 12.3 % (11.5-15.5); WBC 12.2 k/uL (3.8-10.6); WBC (Perox) 12.35
[2016-11-17 07:22] LABS: Anion Gap 8 mmol/L; Blood Urea Nitrogen 7 mg/dL (9-20); Calcium 8.4 mg/dL (8.4-10.2); Carbon Dioxide 28 mmol/L (22-30); Chloride 102 mmol/L (98-107); Glucose 134 mg/dL (74-99); Magnesium 1.7 mg/dL (1.6-2.3); Non-African American GFR(MDRD) >60 (>60 ml/min/1.73 sqM); Phosphorous 2.3 mg/dL (2.5-4.5); Potassium 4.4 mmol/L (3.5-5.1); Sodium 138 mmol/L (137-145)
[2016-11-17] MEDS: HEPARIN SODIUM,PORCINE 5,000 UNIT/ML 1 ML VIAL SQ SCH ×2 (07:44→16:01)
[2016-11-17] MEDS: busPIRone HCl 10 MG TAB PO SCH ×4 (08:32→22:46)
[2016-11-17] MEDS: TAMSULOSIN 0.4 MG CAP.ER.24H PO SCH (08:32)
[2016-11-17] MEDS: ATENOLOL 50 MG TAB PO SCH (08:32)
[2016-11-17] MEDS: ALVIMOPAN 12 MG CAPSULE PO SCH ×2 (08:32→22:46)
[2016-11-17] MEDS: PANTOPRAZOLE 40 MG/10 ML VIAL IV SCH (08:33)
[2016-11-17 11:44] LABS: Glucose,Whole Blood 140 mg/dL (75-99)
--- NOTE | 2016-11-17 13:23 | P.PN ---
Subjective 66-year-old being seen on rounds currently resting in bed. Nasogastric tube in place states pain medication effective for pain control Labs were reviewed magnesium and phosphorus low patient is scheduled today for a PICC line for TPN for nutritional support. A few hypoactive bowel tones noted no stool indwelling Mena catheter in place Patient is postop on November 14 diagnostic laparoscopic lysis of adhesions converted to open exploratory laparotomy with extensive lysis of adhesions. 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 mass associated with bowel at the anastomic site Objective - Vital Signs Vital signs: Vital Signs Temp 99.1 F 11/17/16 07:49 Pulse 72 11/17/16 07:49 Resp 15 11/17/16 07:49 BP 128/97 11/17/16 07:49 Pulse Ox 99 11/17/16 07:49 Intake & Output 11/16/16 11/17/16 11/17/16 18:59 06:59 18:59 Intake Total 0 1600 Output Total 105 1710 630 Balance -105 -110 -630 Intake: Intake, IV Titration 1600 Amount D5-0.45% NaCl with KCl 1500 20Meq/l 1,000 ml @ 125 mls/hr IV .Q8H ANGEL[facility] Rx#: [id number] Piperacillin-Tazobactam 3 100 .375 gm In Dextrose/Water 1 50ml.bag @ 12.5 mls/hr IVPB Q8H ANGELA Rx#: [id number] Oral 0 0 Output: Gastric Drainage 300 500 Drainage 105 310 130 Left Abdomen 5 60 35 Right Abdomen 100 250 95 Urine 900 Uretheral (Mena) 900 Oral Regurgitation 200 Other: Voiding Method Indwelling Catheter Indwelling Catheter - Exam Physical exam 66-year-old male resting in bed pleasant oriented 3 reports still having abdominal pain pain medication effective for pain relief Lungs essentially clear adequate air movement no shortness of breath no cough Heart S1-S2 audible regular Abdomen nasal gastric tube in place surgical tenderness. Hypoactive bowel tones Herberth-Guevara drains right greater than the left increased drainage serous no stool Extremities Venodyne's on to the bilateral lower extremities no edema noted - Labs CBC & Chem 7: 11/17/16 06:46 11/17/16 06:41 Labs: Abnormal Lab Results - Last 24 Hours (Table) 11/16/16 11/17/16 11/17/16 Range/Units 20:30 06:15 06:41 WBC (3.8-10.6) k/uL RBC (4.30-5.90) m/uL Hgb (13.0-17.5) gm/dL Hct (39.0-53.0) % Neutrophils # (1.3-7.7) k/uL BUN 7 L (9-20) mg/dL Glucose 134 H (74-99) mg/dL POC Glucose (mg/dL) 137 H 127 H (75-99) mg/dL Phosphorus 2.3 L (2.5-4.5) mg/dL 11/17/16 11/17/16 Range/Units 06:46 11:43 WBC 12.2 H (3.8-10.6) k/uL RBC 3.93 L (4.30-5.90) m/uL Hgb 11.5 L (13.0-17.5) gm/dL Hct 36.6 L (39.0-53.0) % Neutrophils # 9.3 H (1.3-7.7) k/uL BUN (9-20) mg/dL Glucose (74-99) mg/dL POC Glucose (mg/dL) 140 H (75-99) mg/dL Phosphorus (2.5-4.5) mg/dL Assessment and Plan Plan: Impression Present on admission abdominal pain bloating nausea sensation suspect due to partial small bowel obstruction History of unintentional weight loss greater than 10 pounds within the last 2 weeks CAT scan abdomen and pelvis wall thickening with masslike area noted involving terminal ileum and cecum may reflect neoplasm or chronic inflammatory process CAT scan abdomen and pelvis dilated small bowel likely reflecting partial small bowel obstruction A remote history greater than 35 years ago bowel resection with an appendectomy History of hypertension History of esophageal reflux Present on admission leukocytosis 11/14/2016 diagnostic laparoscopic with lysis of adhesion converted to open exploratory laparotomy with extensive lysis of adhesions November 14 2016 drainage of an intra-abdominal abscess 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 Flower Simpson nurse practitioner acting as a scribe for dr fisher
[2016-11-17] MEDS ORDERED: LIDOCAINE 2% INJ 20 MG/ML SQ ONE (14:14)
[2016-11-17] MEDS: KETOROLAC 30 MG/ML 1 ML VIAL IVP PRN ×2 (15:24→22:48)
--- NOTE | 2016-11-17 15:27 | IR ---
EXAMINATION TYPE: IR cvc insert >=5 years DATE OF EXAM: 11/17/2016 3:23 PM COMPARISON: NONE CLINICAL HISTORY: Infection Needs long-term intravenous access for antibiotics. PROCEDURE: After informed consent, the skin overlying the upper extremity vein was localized with ultrasound and noted to be compressible and patent. An ultrasound image was obtained and submitted on the patient' s chart. The overlying skin was prepped and draped and Lidocaine was used for local anesthesia. A s kin kimberly was made with a scalpel. Access was gained to the vein under ultrasound guidance with a 21 gauge needle and a 0.018 inch wire was advanced. Access site was dilated with Peel-Away sheath and c atheter tailored to the appropriate length and advanced such that the distal tip is at the cavoatrial junction. Spot image was obtained verifying placement. Catheter was fixed to the skin with suture and a sterile dressing was placed following hemostasis. Catheter was aspirated and flushed with sali ne. Patient was discharged in stable condition without complication. Maximal barrier technique is ut ilized. Ultrasound image is documented on the chart. Ultrasound used with sterile technique. Fluoro time and fluoroscopic images submitted to document procedure: Single intraoperative C-arm imag e documents the procedure, 0.4 minutes fluoroscopy time IMPRESSION: STATUS POST ULTRASOUND AND FLUOROSCOPIC GUIDED PICC LINE PLACEMENT, READY FOR USE. THIS PROCEDURE WAS PERFORMED BY THE UNDERSIGNED.
[2016-11-17 15:49] LABS: Ionized Calcium 4.7 mg/dL (4.5-5.3)
[2016-11-17 15:59] LABS: ALT 29 U/L (21-72); AST 27 U/L (17-59); Alkaline Phosphatase 50 U/L (38-126); Anion Gap 6 mmol/L; Blood Urea Nitrogen 6 mg/dL (9-20); Calcium 7.9 mg/dL (8.4-10.2); Carbon Dioxide 29 mmol/L (22-30); Chloride 102 mmol/L (98-107); Glucose 133 mg/dL (74-99); Magnesium 1.6 mg/dL (1.6-2.3); Non-African American GFR(MDRD) >60 (>60 ml/min/1.73 sqM); Phosphorous 2.2 mg/dL (2.5-4.5); Potassium 4.3 mmol/L (3.5-5.1); Sodium 137 mmol/L (137-145); Total Bilirubin 0.7 mg/dL (0.2-1.3); Total Protein 5.3 g/dL (6.3-8.2); Triglycerides 114 mg/dL (<150)
[2016-11-17 16:44] LABS: Glucose,Whole Blood 126 mg/dL (75-99)
[2016-11-17] MEDS ORDERED: MVI, ADULT NO.4 WITH VIT K 10 ML, TRACE (CONC-1ML/DOSE) 1 ML in AMINO ACID 5%-D25W+LYTE... IV ONE ×3 (17:00)
[2016-11-17] MEDS: FAT EMULSION 20% 250 ML in EMPTY BAG 1 BAG IV SCH (17:10)
[2016-11-17] MEDS: INSULIN LISPRO (humaLOG) 300 UNIT/3 ML VIAL SQ SCH (17:38)
--- NOTE | 2016-11-17 17:46 | P.PN ---
Subjective 66-year-old gentleman comes in the hospital with progressive worsening of abdominal pain diffuse in nature mostly focused around the umbilicus for the last 2-3 days. Patient states that over the last 2 weeks he has had intermittent pains. Or the last 2-3 days patient has had progressive worsening of pain and has had intractable nausea. Patient states that he has had some watery bowel movements over the last 1-2 weeks. States that he has lost over 10 pounds over the last 2-3 weeks. In the emergency room patient was noted to have a computed tomography scan of the abdomen pelvis was noted to have a masslike region of the terminal ileum and the cecum. States that his last colonoscopy was over 10 years ago. Patient was noted to have a masslike area causing a small bowel obstruction. An NG tube was placed. During the time of my evaluation patient states he feels slightly better however does continue complain of abdominal pain around the location described above. Family history denies having any history of colon cancer or any other cancer history. Patient does smoke about half a pack of cigarettes daily. 11/14/16 states to be feeling slightly better continues to have abdominal pain has watery bms no fevers, chills, cough, markie, chest pain, urinary urgency or frequency reported.NG tube in place 11/15/16 seen post op day 1 Pain is controlled has not passed gas Denies significant cough, MARKIE , chest pain NG in place. 11/16/16 Not passing gas, states pain is slightly improved no fevers chills,chest pain, MARKIE 11/17/16 No flatus reported denies fevers, chills, chest pain markie NG in place abdomen is less tender to palpation according to him. Objective - Vital Signs Vital signs: Vital Signs Temp 98.3 F 11/17/16 16:03 Pulse 82 11/17/16 16:03 Resp 15 11/17/16 07:49 BP 171/98 11/17/16 16:03 Pulse Ox 96 11/17/16 16:03 Intake & Output 11/16/16 11/17/16 11/17/16 18:59 06:59 18:59 Intake Total 0 1600 Output Total 105 1710 1290 Balance -105 -110 -1290 Weight 104.7 kg Intake: Intake, IV Titration 1600 Amount D5-0.45% NaCl with KCl 1500 20Meq/l 1,000 ml @ 125 mls/hr IV .Q8H [facility] Rx#: [id number] Piperacillin-Tazobactam 3 100 .375 gm In Dextrose/Water 1 50ml.bag @ 12.5 mls/hr IVPB Q8H [facility] Rx#: [id number] Oral 0 0 Output: Gastric Drainage 300 500 Drainage 105 310 190 Left Abdomen 5 60 35 Medial Abdomen 0 Right Abdomen 100 250 155 Urine 900 600 Uretheral (Jc) 900 600 Oral Regurgitation 200 Other: Voiding Method Indwelling Catheter Indwelling Catheter - Constitutional General appearance: Present: no acute distress - EENT Eyes: Present: PERRLA - Neck Neck: Present: normal ROM. Absent: rigidity - Respiratory Respiratory: bilateral: CTA, negative: diminished, dullness, rales, rhonchi, wheezing - Cardiovascular Rhythm: regular Heart sounds: normal: S1, S2 Abnormal Heart Sounds: Absent: systolic murmur - Gastrointestinal Localized gastrointestinal: tender: diffuse (prevena instrument at the incision site, 2 jps drains noted, appropriately tender to palpation, bowel sounds hypoactive) - Neurologic Neurologic: Present: CNII-XII intact. Absent: focal deficits - Psychiatric Psychiatric: Present: A&O x's 3, appropriate affect - Labs CBC & Chem 7: 11/17/16 06:46 11/17/16 15:35 Labs: Abnormal Lab Results - Last 24 Hours (Table) 11/16/16 11/17/16 11/17/16 Range/Units 20:30 06:15 06:41 WBC (3.8-10.6) k/uL RBC (4.30-5.90) m/uL Hgb (13.0-17.5) gm/dL Hct (39.0-53.0) % Neutrophils # (1.3-7.7) k/uL BUN 7 L (9-20) mg/dL Glucose 134 H (74-99) mg/dL POC Glucose (mg/dL) 137 H 127 H (75-99) mg/dL Calcium (8.4-10.2) mg/dL Phosphorus 2.3 L (2.5-4.5) mg/dL Total Protein (6.3-8.2) g/dL Albumin (3.5-5.0) g/dL 11/17/16 11/17/16 11/17/16 Range/Units 06:46 11:43 15:35 WBC 12.2 H (3.8-10.6) k/uL RBC 3.93 L (4.30-5.90) m/uL Hgb 11.5 L (13.0-17.5) gm/dL Hct 36.6 L (39.0-53.0) % Neutrophils # 9.3 H (1.3-7.7) k/uL BUN 6 L (9-20) mg/dL Glucose 133 H (74-99) mg/dL POC Glucose (mg/dL) 140 H (75-99) mg/dL Calcium 7.9 L (8.4-10.2) mg/dL Phosphorus 2.2 L (2.5-4.5) mg/dL Total Protein 5.3 L (6.3-8.2) g/dL Albumin 2.8 L (3.5-5.0) g/dL 11/17/16 Range/Units 16:42 WBC (3.8-10.6) k/uL RBC (4.30-5.90) m/uL Hgb (13.0-17.5) gm/dL Hct (39.0-53.0) % Neutrophils # (1.3-7.7) k/uL BUN (9-20) mg/dL Glucose (74-99) mg/dL POC Glucose (mg/dL) 126 H (75-99) mg/dL Calcium (8.4-10.2) mg/dL Phosphorus (2.5-4.5) mg/dL Total Protein (6.3-8.2) g/dL Albumin (3.5-5.0) g/dL Assessment and Plan Plan: #[id number] gentleman is admitted to the hospital with the nausea vomiting and abdominal pain secondary to small bowel obstruction due to a mass #2 ongoing tobacco use #3 GERD #4 history of hypertension. #5 history of depression/severe anxiety s/p ex lap, s/p LOS, mass resection, and drainage of abscess. acute hypoxic respiratory failure, titrate off o2 Sepsis sec to intraabdominal infection Plan abx, await cultures, negative so far biopsy results pending. Drains in place PICC to placed for TPN, has not had any intake for 7 days. continue jc, encourage activity Vitals stable.
[2016-11-17] MEDS ORDERED: SODIUM PHOSPHATE 10 MMOL in SODIUM CHLORIDE 0.9% 100 ML IVPB ONE (18:00)
[2016-11-17 23:15] LABS: Hemoglobin A1C 5.8 % (4.2-6.1)
[2016-11-17 23:58] LABS: Glucose,Whole Blood 145 mg/dL (75-99)
[2016-11-18] MEDS: HYDROmorphone 1 MG/ML 1 ML SYRINGE IVP PRN ×12 (00:02→23:26)
[2016-11-18] MEDS: HEPARIN SODIUM,PORCINE 5,000 UNIT/ML 1 ML VIAL SQ SCH ×4 (00:02→23:29)
[2016-11-18] MEDS: INSULIN LISPRO (humaLOG) 300 UNIT/3 ML VIAL SQ SCH ×5 (00:12→23:40)
[2016-11-18] MEDS: PIPERACILLIN-TAZOBACTAM 3.375 GM in DEXTROSE/WATER 1 50ML.BAG IVPB SCH ×3 (04:15→21:33)
[2016-11-18] MEDS: D5-0.45% NACL WITH KCL 20MEQ/L 1,000 ML IV SCH ×3 (04:53→23:28)
[2016-11-18] MEDS: KETOROLAC 30 MG/ML 1 ML VIAL IVP PRN ×4 (04:54→20:52)
[2016-11-18 06:02] LABS: Glucose,Whole Blood 149 mg/dL (75-99)
[2016-11-18 08:21] LABS: Basophils % (A) 0 %; CH 30.1; CHCM 32.3; Eosinophils # (A) 0.5 k/uL (0-0.7); Eosinophils % (A) 6 %; HCT 32.4 % (39.0-53.0); HDW 2.56; HGB 10.4 gm/dL (13.0-17.5); Luc # (Auto) 0.22; Luc % (Auto) 3; Lymphocytes # (A) 1.8 k/uL (1.0-4.8); Lymphocytes % (A) 21 %; MCV 93.7 fL (80.0-100.0); Mean Platelet Volume 6.5; Monocytes # (A) 0.6 k/uL (0-1.0); Monocytes % (A) 6 %; Neutrophils # (A) 5.6 k/uL (1.3-7.7); Neutrophils % (A) 64 %; RBC 3.46 m/uL (4.30-5.90); RDW 12.5 % (11.5-15.5); WBC 8.7 k/uL (3.8-10.6); WBC (Perox) 9.95
[2016-11-18] MEDS: TAMSULOSIN 0.4 MG CAP.ER.24H PO SCH (08:22)
[2016-11-18] MEDS: busPIRone HCl 10 MG TAB PO SCH ×4 (08:22→20:52)
[2016-11-18] MEDS: ATENOLOL 50 MG TAB PO SCH (08:23)
[2016-11-18] MEDS: ALVIMOPAN 12 MG CAPSULE PO SCH ×2 (08:23→20:52)
[2016-11-18] MEDS: PANTOPRAZOLE 40 MG/10 ML VIAL IV SCH (08:23)
[2016-11-18 08:34] LABS: Anion Gap 8 mmol/L; Blood Urea Nitrogen 7 mg/dL (9-20); Carbon Dioxide 29 mmol/L (22-30); Chloride 102 mmol/L (98-107); Glucose 131 mg/dL (74-99); Magnesium 1.6 mg/dL (1.6-2.3); Non-African American GFR(MDRD) >60 (>60 ml/min/1.73 sqM); Phosphorous 2.8 mg/dL (2.5-4.5); Potassium 3.9 mmol/L (3.5-5.1); Sodium 139 mmol/L (137-145)
[2016-11-18] MEDS ORDERED: POTASSIUM CHLORIDE 10 MEQ in WATER FOR INJECTION 1 100ML.BAG IVPB ONE (10:30)
[2016-11-18] MEDS: MAGNESIUM SULFATE-D5W PMX 1 GM in DEXTROSE/WATER 1 100ML.BAG IVPB SCH ×4 (10:47→17:06)
[2016-11-18 11:52] LABS: Glucose,Whole Blood 143 mg/dL (75-99)
--- NOTE | 2016-11-18 14:00 | P.PN ---
Subjective 66-year-old male sitting up in a chair patient had ambulated in the lee this morning. States is not passing gas no stool indwelling Mena catheter in place and the nasal gastric tube connected to suction. Patient states pain medication effective for pain control. Patient has TPN infusing for nutritional support per PICC line. Active bowel tones noted. Has a Herberth- Guevara drain in place right greater than left increased drainage noted serous drainage patient is postop on November 14 diagnostic laparoscopic lysis of adhesions converted to open exploratory laparotomy with extensive lysis of adhesions. 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 mass associated with bowel at the anastomic site Objective - Vital Signs Vital signs: Vital Signs Temp 98.1 F 11/18/16 13:13 Pulse 65 11/18/16 13:13 Resp 16 11/18/16 13:13 BP 157/91 11/18/16 13:13 Pulse Ox 96 11/18/16 13:13 Intake & Output 11/17/16 11/18/16 11/18/16 18:59 06:59 18:59 Intake Total 50 Output Total 1350 1000 80 Balance -1350 -950 -80 Weight 104.7 kg 110.4 kg Intake: Oral 50 Output: Gastric Drainage 500 500 Drainage 250 150 80 Left Abdomen 35 10 Medial Abdomen 0 Right Abdomen 215 140 80 Urine 600 350 Uretheral (Mena) 600 350 Other: Voiding Method Indwelling Catheter Indwelling Catheter Indwelling Catheter - Exam Physical exam 66-year-old gentleman sitting up in a chair pleasant cooperative oriented 3 states that he did ambulate in the lee 1 this morning Lungs essentially clear adequate air movement on room air no cough noted Heart S1-S2 audible regular no murmur noted denying chest pain Abdomen abdominal binder in place. 2 Herberth-Guevara drains in place right and left. Wound VAC in place a few hypoactive bowel tones. Indwelling Mena catheter in place a nasogastric tube connected to suction less than 100 mL for the last 8 hours Extremities no edema noted - Labs CBC & Chem 7: 11/18/16 07:47 11/18/16 07:47 Labs: Abnormal Lab Results - Last 24 Hours (Table) 11/17/16 11/17/16 11/17/16 Range/Units 15:35 16:42 23:56 RBC (4.30-5.90) m/uL Hgb (13.0-17.5) gm/dL Hct (39.0-53.0) % BUN 6 L (9-20) mg/dL Glucose 133 H (74-99) mg/dL POC Glucose (mg/dL) 126 H 145 H (75-99) mg/dL Calcium 7.9 L (8.4-10.2) mg/dL Phosphorus 2.2 L (2.5-4.5) mg/dL Total Protein 5.3 L (6.3-8.2) g/dL Albumin 2.8 L (3.5-5.0) g/dL 11/18/16 11/18/16 11/18/16 Range/Units 05:58 07:47 07:47 RBC 3.46 L (4.30-5.90) m/uL Hgb 10.4 L (13.0-17.5) gm/dL Hct 32.4 L (39.0-53.0) % BUN 7 L (9-20) mg/dL Glucose 131 H (74-99) mg/dL POC Glucose (mg/dL) 149 H (75-99) mg/dL Calcium 8.0 L (8.4-10.2) mg/dL Phosphorus (2.5-4.5) mg/dL Total Protein (6.3-8.2) g/dL Albumin 2.6 L (3.5-5.0) g/dL 11/18/16 Range/Units 11:45 RBC (4.30-5.90) m/uL Hgb (13.0-17.5) gm/dL Hct (39.0-53.0) % BUN (9-20) mg/dL Glucose (74-99) mg/dL POC Glucose (mg/dL) 143 H (75-99) mg/dL Calcium (8.4-10.2) mg/dL Phosphorus (2.5-4.5) mg/dL Total Protein (6.3-8.2) g/dL Albumin (3.5-5.0) g/dL Microbiology - Last 24 Hours (Table) 11/14/16 18:45 Gram Stain - Final Abdomen Wound Culture - Final Enterococcus faecium Assessment and Plan Plan: Impression Present on admission abdominal pain bloating nausea sensation suspect due to partial small bowel obstruction History of unintentional weight loss greater than 10 pounds within the last 2 weeks CAT scan abdomen and pelvis wall thickening with masslike area noted involving terminal ileum and cecum may reflect neoplasm or chronic inflammatory process CAT scan abdomen and pelvis dilated small bowel likely reflecting partial small bowel obstruction A remote history greater than 35 years ago bowel resection with an appendectomy History of hypertension History of esophageal reflux Present on admission leukocytosis suspect reactive resolved 11/14/2016 diagnostic laparoscopic with lysis of adhesion converted to open exploratory laparotomy with extensive lysis of adhesions November 14 2016 drainage of an intra-abdominal abscess 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 F[place] Simpson nurse practitioner acting as a scribe for dr fisher
[2016-11-18 16:55] LABS: Glucose,Whole Blood 132 mg/dL (75-99)
[2016-11-18] MEDS ORDERED: 1: MVI, ADULT NO.4 WITH VIT K 10 ML, TRACE (CONC-1ML/DOSE) 1 ML in AMINO ACID 5%-D25W+LY IV SCH ×3 (17:00)
[2016-11-18] MEDS: 1: MVI, ADULT NO.4 WITH VIT K 10 ML, TRACE (CONC-1ML/DOSE) 1 ML in AMINO ACID 5%-D25W+LY IV SCH ×6 (19:15→19:30)
[2016-11-18 23:26] LABS: Glucose,Whole Blood 127 mg/dL (75-99)
[2016-11-19] MEDS: HYDROmorphone 1 MG/ML 1 ML SYRINGE IVP PRN ×8 (01:32→20:44)
[2016-11-19] MEDS: D5-0.45% NACL WITH KCL 20MEQ/L 1,000 ML IV SCH ×3 (04:37→20:44)
[2016-11-19] MEDS: PIPERACILLIN-TAZOBACTAM 3.375 GM in DEXTROSE/WATER 1 50ML.BAG IVPB SCH ×2 (04:43→14:09)
[2016-11-19] MEDS: KETOROLAC 30 MG/ML 1 ML VIAL IVP PRN ×3 (04:45→17:06)
[2016-11-19 05:57] LABS: Glucose,Whole Blood 116 mg/dL (75-99)
[2016-11-19] MEDS: INSULIN LISPRO (humaLOG) 300 UNIT/3 ML VIAL SQ SCH ×3 (06:04→18:56)
[2016-11-19] MEDS: 1: MVI, ADULT NO.4 WITH VIT K 10 ML, TRACE (CONC-1ML/DOSE) 1 ML in AMINO ACID 5%-D25W+LY IV SCH ×6 (06:46→18:21)
[2016-11-19 07:50] LABS: Basophils % (A) 0 %; CH 29.8; CHCM 32.4; Eosinophils # (A) 0.5 k/uL (0-0.7); Eosinophils % (A) 6 %; HCT 32.8 % (39.0-53.0); HDW 2.58; HGB 10.7 gm/dL (13.0-17.5); Luc # (Auto) 0.13; Luc % (Auto) 1; Lymphocytes # (A) 1.5 k/uL (1.0-4.8); Lymphocytes % (A) 15 %; MCH 30.1 pg (25.0-35.0); MCHC 32.7 g/dL (31.0-37.0); MCV 92.3 fL (80.0-100.0); Monocytes # (A) 0.6 k/uL (0-1.0); Monocytes % (A) 6 %; Neutrophils # (A) 6.9 k/uL (1.3-7.7); Neutrophils % (A) 71 %; RBC 3.55 m/uL (4.30-5.90); RDW 12.6 % (11.5-15.5); WBC 9.7 k/uL (3.8-10.6)
[2016-11-19 08:08] LABS: Anion Gap 8 mmol/L; Blood Urea Nitrogen 9 mg/dL (9-20); Calcium 8.2 mg/dL (8.4-10.2); Carbon Dioxide 29 mmol/L (22-30); Chloride 101 mmol/L (98-107); Glucose 163 mg/dL (74-99); Magnesium 1.9 mg/dL (1.6-2.3); Non-African American GFR(MDRD) >60 (>60 ml/min/1.73 sqM); Phosphorous 2.9 mg/dL (2.5-4.5); Potassium 4.2 mmol/L (3.5-5.1); Sodium 138 mmol/L (137-145)
[2016-11-19] MEDS: HEPARIN SODIUM,PORCINE 5,000 UNIT/ML 1 ML VIAL SQ SCH ×2 (08:59→18:17)
[2016-11-19] MEDS: PANTOPRAZOLE 40 MG/10 ML VIAL IV SCH (08:59)
[2016-11-19] MEDS: ATENOLOL 50 MG TAB PO SCH (09:00)
[2016-11-19] MEDS: ALVIMOPAN 12 MG CAPSULE PO SCH ×2 (09:00→20:43)
[2016-11-19] MEDS: TAMSULOSIN 0.4 MG CAP.ER.24H PO SCH (09:00)
[2016-11-19] MEDS: busPIRone HCl 10 MG TAB PO SCH ×3 (09:00→20:44)
--- NOTE | 2016-11-19 10:13 | PN ---
DATE OF SERVICE: 11/18/2016 INTERVAL HISTORY: Mr. Sibley is a 66-year-old male who was admitted to the hospital with worsening abdominal pain and intractable nausea. Patient was found to have a masslike lesion in the terminal ileum and the cecum as per CT abdomen and pelvis. The patient underwent diagnostic laparoscopic lysis of adhesions and converted to open exploratory laparotomy with extensive lysis of adhesions. Patient also had drainage of intra-abdominal abscess, excision of inflammatory questionable malignant anastomotic site and also resection of ileocolic anastomosis. Currently, patient is sitting in a chair and has not had any flatus. Patient is continued on NG tube with suction. Patient was started on TPN for nutrition support via PICC line. REVIEW OF SYSTEMS: CONSTITUTIONAL: No fever. No chills. RESPIRATORY: No cough or sputum production. CARDIOVASCULAR: No chest pain or short of breath. Patient does have nausea and no vomiting and patient's abdominal surgical wound is intact. Bowel sounds are sluggish but present. Tenderness of the surgical site. No guarding. 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 No focal deficit. EXTREMITIES: No edema. Pulses palpable bilaterally. No clubbing or cyanosis. PSYCHIATRIC: Cooperative. Current medications reviewed which include Entereg, Clinimix, atenolol, Cepacol, BuSpar, fat emulsion intravenous solution, heparin subQ, Dilaudid, Humalog, Toradol, magnesium per protocol, Narcan, Zofran, Protonix, Zosyn and Flomax. PHYSICAL EXAMINATION: A 66-year-old male lying in the bed, awake, alert, oriented x3. He appears to be no apparent distress. NG tube is in place. VITALS: Blood pressure is 157/91, pulse is 65, respirations 16, temperature afebrile, pulse ox 96% on room air. HEENT: Atraumatic, normocephalic. Neck is supple. No JVD. CVS EXAM: S1, S2 heard. No murmurs, no gallop. LUNGS: Bilateral air entry is present. No wheezing. No crackles, decreased breath sounds bilateral basally, nonlabored breathing. Abdomen is soft, minimally distended and abdomen wound is bandaged . Bowel sounds are sluggish, present. No guarding. No rigidity MILLING MACHINE OPERATOR: Awake, alert and oriented, x3. No focal deficit. EXTREMITIES: No edema. Pulses palpable bilaterally, no clubbing or cyanosis. PSYCHIATRIC: Cooperative. LABORATORY DATA: WBC 8.7, hemoglobin 10.4, platelets 360. Sodium 139, potassium 3.9, chloride 102, bicarb is 29, BUN is 7, creatinine 0.95. Blood sugar is 131, calcium 8.0 and phosphorus 2.8, magnesium 1.6, albumin 2.6. IMPRESSION: 1. 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 2. Ongoing tobacco use. 3. Gastroesophageal reflux disease. 4. Hypertension. 5. History of depression and history of anxiety. 6. Acute hypoxic respiratory failure, postsurgery, resolved now. 7. Sepsis secondary to intra-abdominal infection. Currently on Zosyn. PLAN: Patient will be continued on antibiotics, will await final culture reports and biopsy reports. Patient had drainage of abscess was done and currently replaced with magnesium and continue with the GI and the DVT prophylaxis, continue with IV hydration, pain management, continue with the TPN and follow up closely. Further recommendations based on clinical course.
[2016-11-19 12:10] LABS: Glucose,Whole Blood 144 mg/dL (75-99)
--- NOTE | 2016-11-19 13:46 | P.PN ---
Subjective 66-year-old male being seen this morning. Patient currently is sitting up in a chair. Patient states he is passing gas has ambulated once in the hallway this morning small stool. Nasal gastric tube in place. Gastric tube put out 300 rales last night. Patient reports the pain medication effective for pain control. Remains afebrile white count down to 9.7 this morning patient is postop on November 14 diagnostic laparoscopic lysis of adhesions converted to open exploratory laparotomy with extensive lysis of adhesions. 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 mass associated with bowel at the anastomic site Objective - Vital Signs Vital signs: Vital Signs Temp 98 F 11/19/16 07:00 Pulse 73 11/19/16 07:00 Resp 16 11/19/16 07:00 BP 165/90 11/19/16 07:00 Pulse Ox 97 11/19/16 07:00 Intake & Output 11/18/16 11/19/16 11/19/16 18:59 06:59 18:59 Intake Total 400 585 Output Total 800 2420 830 Balance -400 -1835 -830 Weight 115 kg Intake: Intake, IV Titration 400 535 Amount D5-0.45% NaCl with KCl 125 20Meq/l 1,000 ml @ 125 mls/hr IV .Q8H [facility]GEL[facility] Rx#: [id number] Magnesium Sulfate-D5w Pmx 400 1 gm In Dextrose/Water 1 100ml.bag @ 100 mls/hr IVPB Q1H ANGELA Rx#: [id number] Mvi, Adult No.4 with Vit 360 K 10 ml Trace (Conc-1Ml/ Dose) 1 ml In Amino Acid 5%-D25w+Lytes*E* 1,000 ml @ 90 mls/hr IV .BY DURATION ANGELA Rx#: [id number] Piperacillin-Tazobactam 3 50 .375 gm In Dextrose/Water 1 50ml.bag @ 12.5 mls/hr IVPB Q8H ANGELA Rx#: [id number] Oral 50 Output: Gastric Drainage 100 300 Drainage 250 120 80 Left Abdomen 40 Medial Abdomen 80 Right Abdomen 250 80 Urine 550 2200 450 Uretheral (Mena) 1800 450 Other: Voiding Method Indwelling Catheter Indwelling Catheter # Bowel Movements 1 - Exam Physical exam 66-year-old gentleman sitting up in a chair pleasant cooperative oriented 3 states that he did ambulate in the lee 1 this morning states is passing gases this morning. States had 1 small stool Lungs essentially clear adequate air movement on room air no cough noted Heart S1-S2 audible regular no murmur noted denying chest pain Abdomen abdominal binder in place. 2 Herberth-Guevara drains in place right and left. Wound VAC in place a few hypoactive bowel tones. Indwelling Mena catheter in place a nasogastric tube connected to suction drainage in the Herberth-Guevara drain serous Extremities no edema noted Venodyne's on bilaterally PICC line in place left upper arm TPN infusing - Labs CBC & Chem 7: 11/19/16 07:28 11/19/16 07:28 Labs: Abnormal Lab Results - Last 24 Hours (Table) 11/18/16 11/18/16 11/19/16 Range/Units 16:40 23:24 05:47 RBC (4.30-5.90) m/uL Hgb (13.0-17.5) gm/dL Hct (39.0-53.0) % Glucose (74-99) mg/dL POC Glucose (mg/dL) 132 H 127 H 116 H (75-99) mg/dL Calcium (8.4-10.2) mg/dL 11/19/16 11/19/16 11/19/16 Range/Units 07:28 07:28 12:08 RBC 3.55 L (4.30-5.90) m/uL Hgb 10.7 L (13.0-17.5) gm/dL Hct 32.8 L (39.0-53.0) % Glucose 163 H (74-99) mg/dL POC Glucose (mg/dL) 144 H (75-99) mg/dL Calcium 8.2 L (8.4-10.2) mg/dL Microbiology - Last 24 Hours (Table) 11/14/16 18:45 Anaerobic Culture - Final Abdomen Assessment and Plan Plan: Impression Present on admission abdominal pain bloating nausea sensation suspect due to partial small bowel obstruction History of unintentional weight loss greater than 10 pounds within the last 2 weeks CAT scan abdomen and pelvis wall thickening with masslike area noted involving terminal ileum and cecum may reflect neoplasm or chronic inflammatory process CAT scan abdomen and pelvis dilated small bowel likely reflecting partial small bowel obstruction A remote history greater than 35 years ago bowel resection with an appendectomy History of hypertension History of esophageal reflux Present on admission leukocytosis suspect reactive resolved 11/14/2016 diagnostic laparoscopic with lysis of adhesion converted to open exploratory laparotomy with extensive lysis of adhesions November 14 2016 drainage of an intra-abdominal abscess 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 F[place] Simpson nurse practitioner acting as a scribe for dr fisher
[2016-11-19 18:19] LABS: Glucose,Whole Blood 113 mg/dL (75-99)
[2016-11-19] MEDS: FAT EMULSION 20% 250 ML in EMPTY BAG 1 BAG IV SCH (18:21)
[2016-11-19] MEDS: AMPICILLIN-SULBACTAM 3 GM in SODIUM CHLORIDE 0.9% 100 ML IVPB SCH (18:21)
[2016-11-19] MEDS ORDERED: VANCOMYCIN 1,750 MG in SODIUM CHLORIDE 0.9% 250 ML IVPB ONE (19:00)
[2016-11-20 00:46] LABS: Glucose,Whole Blood 125 mg/dL (75-99)
[2016-11-20] MEDS: HYDROmorphone 1 MG/ML 1 ML SYRINGE IVP PRN ×6 (00:49→23:25)
[2016-11-20] MEDS: HEPARIN SODIUM,PORCINE 5,000 UNIT/ML 1 ML VIAL SQ SCH ×3 (00:50→16:07)
[2016-11-20] MEDS: AMPICILLIN-SULBACTAM 3 GM in SODIUM CHLORIDE 0.9% 100 ML IVPB SCH ×4 (01:38→18:15)
[2016-11-20] MEDS: INSULIN LISPRO (humaLOG) 300 UNIT/3 ML VIAL SQ SCH ×4 (05:18→18:18)
[2016-11-20] MEDS: D5-0.45% NACL WITH KCL 20MEQ/L 1,000 ML IV SCH ×2 (05:41→16:14)
[2016-11-20 06:33] LABS: Glucose,Whole Blood 161 mg/dL (75-99)
--- NOTE | 2016-11-20 07:31 | CONS ---
DATE OF CONSULTATION: 11/19/2016 Reason for consultation is abdominal abscess and antibiotic recommendation. HISTORY OF PRESENT ILLNESS: The patient is a 66-year-old male who presented to the ER at [facility] on 11/12/2016 with chief complaints of abdominal pain. Apparently his symptom has been going on for a few weeks. Prior to coming to the hospital, the patient's pain has been mostly in the lower abdominal area, mostly dull in nature, 5 to 6 in intensity, no radiation, some nausea but no vomiting and associated constipation. He was evaluated for the same by the [facility] where he was told he has elevated white count. He was given some antibiotic, he is not sure about the name. Subsequently, the patient did present to the [facility] ER where the patient was noted to have elevated white count of 19.2. He did have a CT scan of abdomen and pelvis that did show thickening of the terminal ileum and cecal area and partial small bowel obstruction. The patient has been taken to the OR by Dr. Norris on 11/14/2016 where the patient did have diagnostic laparoscopic lysis of adhesion that was converted to open laparotomy with additional lysis of adhesions, excision of the ileocecal anastomosis and anastomosis of the ileum with the transverse colon and the drainage of the abscess. Cultures are now showing enterococcus faecium that is sensitive to penicillin. He has been treated with Zosyn. ID was consulted today for further recommendation regarding antibiotic. Patient's abdominal incision currently covered with the wound VAC. He did have 2 KANDI drainage, which is mostly serous secretion. Patient continued to have NG and he started having a bowel movement today. Patient denies significant nausea. His abdominal pain is slightly improving. Patient denies significant chest pain or shortness of breath or cough. He did have a PICC line with a TPN infusing. REVIEW OF SYSTEMS: CONSTITUTIONAL: Positive for weakness and low-grade fever. EYES: No complaint. ENT: No complaint. RESPIRATORY: No complaint. CARDIOVASCULAR: No complaint. GENITOURINARY: No complaint. GASTROINTESTINAL: As per HPI. MUSCULOSKELETAL: No complaint. INTEGUMENTARY: No complaint. PSYCHOLOGICAL: No. ENDOCRINE: No complaint. NEUROLOGICAL: No complaint. Past medical history is significant for hypertension, gastroesophageal reflux disease, chronic back pain, herniated disc, irritable bowel syndrome. PAST SURGICAL HISTORY: Significant for appendectomy and bowel resection. SOCIAL HISTORY: Positive for smoking, has been smoking since the age of 16, also he does heavy drinking. FAMILY HISTORY: Mother with history of diabetes. ALLERGIES: No known drug allergies. Medications currently include drainage the patient is on Entereg, Zosyn 3.375 gm q.8, Tenormin, Cepacol lozenges, BuSpar, TPN, Dilaudid, Humalog, Toradol, Narcan, Zofran and vancomycin. On examination, blood pressure is 158/90 with a pulse of 79, temperature 97.8, he is 98% on room air. General description is an elderly male, lying in bed in no distress. No tachypnea or accessory muscle for respiration use. HEENT examination shows slight pallor, no scleral icterus. Oral mucous membrane is dry. NECK: Trachea central. There is no thyromegaly. LUNGS: Unlabored breathing. Clear to auscultation anteriorly. HEART: S1, S2. Regular rate and rhythm. ABDOMEN: Soft. The midline incision with the wound VAC on, surrounding KANDI drainage on the two sides with serosanguineous secretion. EXTREMITIES: No edema of the feet. SKIN EXAMINATION: No rash or mass palpable. NEUROLOGICAL: Patient is awake, alert, oriented x3. Mood and affect normal. LABS: Hemoglobin is 10.7, white count 9.7 with a BUN of 9, creatinine 0.91. Wound culture with Enterococcus faecium. Unfortunately, no blood cultures were done. DIAGNOSTIC IMPRESSION AND PLAN: Patient with abdominal abscess and the patient noticed to have terminal ileum/cecal wall/post ileal resection and anastomosis of the terminal ileum with the transverse colon and drainage of the abscess. The biopsy report is still pending to determine the nature of that mass with the wound culture positive for enterococcus faecium that is penicillin sensitive and no gram-negative has been grown, there was no blood culture drawn on patient in a patient currently not running any fever and white count normalized. PLAN: 1. Weill discontinue the Zosyn as no gram-negative has been grown. 2. No need for vancomycin. 3. Unasyn 3 grams IV q.6 hours should provide average coverage for enterococcus faecium grown as well as in addition to the other enteric gram-negative as well both aerobes and anaerobes. 4. Will follow up on the clinical condition and cultures to further adjust the medication if needed. Thank you for this consultation. Will follow this patient along with you. DENNIS
[2016-11-20] MEDS: ALVIMOPAN 12 MG CAPSULE PO SCH ×2 (09:02→21:57)
[2016-11-20] MEDS: busPIRone HCl 10 MG TAB PO SCH ×5 (09:02→21:57)
[2016-11-20] MEDS: PANTOPRAZOLE 40 MG/10 ML VIAL IV SCH (09:02)
[2016-11-20] MEDS: ATENOLOL 50 MG TAB PO SCH (09:02)
[2016-11-20] MEDS: TAMSULOSIN 0.4 MG CAP.ER.24H PO SCH (09:02)
[2016-11-20] MEDS: 1: MVI, ADULT NO.4 WITH VIT K 10 ML, TRACE (CONC-1ML/DOSE) 1 ML in AMINO ACID 5%-D25W+LY IV SCH ×6 (09:21→21:54)
--- NOTE | 2016-11-20 09:24 | PN ---
DATE OF SERVICE: 11/19/2016 INTERVAL HISTORY: Mr. Sibley is a 66-year-old male who was admitted to the hospital with worsening abdominal pain, intractable nausea. Patient found to have a mass like lesion in the terminal ileum and sacrum, status post CT scan abdomen and pelvis. Patient underwent diagnostic laparoscopy with lysis of adhesions and converted to open exploratory laparotomy with extensive lysis of adhesions and also bowel anastomosis was done. The patient also found to have masslike lesion involving the anastomotic site. Biopsy report is pending at this time. Otherwise wound cultures are growing Enterococcus faecium. Currently on Zosyn, which is sensitive to that. Otherwise patient is currently maintained on NG tube and TPN. Patient did have bowel movement today. Denied any fever or chills. No acute overnight issues. All other review of systems negative except as above. Current medications reviewed. PHYSICAL EXAMINATION: A 66-year-old male lying in bed comfortably, awake, alert, oriented x3. Appears to be in no apparent distress. VITALS: Blood pressure is 168/90, pulse is 79, respirations 16, temperature afebrile. Otherwise 98% on room air. HEENT: Atraumatic, normocephalic. Neck is supple. No JVD. CVS: S1, S2 heard. No murmurs. No gallops. LUNGS: Bilateral air entry is present. Otherwise no crackles. ABDOMEN: Soft, surgical site is bandaged at this time. Bowel sounds are slightly sluggish to absent. PSYCHIATRIC: Cooperative. NEUROLOGIC: No focal deficits, able to move all his extremities and ambulate. LABORATORY DATA: WBC 9.7, hemoglobin 10.7, platelets 394. Sodium 138, potassium 4.2, chloride 101, bicarb is 29, BUN 9, creatinine 0.9. Calcium 8.2, magnesium 1.9. Blood sugar is controlled. IMPRESSION: 1. Acute small bowel obstruction, possible iliosacral mass, status post surgical exploration and removal of adhesions and also biopsy. Results are pending. 2. Wound cultures growing Enterococcus faecium, currently on Zosyn which is sensitive to that. 3. Remote history of appendectomy with bowel resection. 4. Gastroesophageal reflux disease. 5. Hypertension. 6. Ongoing tobacco use. 7. History of depression and anxiety. 8. Acute hypoxic respiratory failure postsurgery, resolved now. 9. Sepsis secondary to intraabdominal infection, resolved now. DISCUSSION AND PLAN: Patient will continue with current antibiotics, IV fluids and TPN. Follow up on biopsy report and ( ). Continue with GI and DVT prophylaxis. Continue the current management and further recommendations based on clinical course.
[2016-11-20 11:17] VITALS: BMI 31.6
--- NOTE | 2016-11-20 11:53 | P.PN ---
Subjective 66-year-old male with the surgical attending. Patient currently is resting in bed there's been no new postop events. The surgical dressing was removed by Dr. fisher at the bedside this morning. The indwelling Mena catheter was clamped.. Patient states is passing gas no stool and tolerating clear liquid diet did note the patient's blood pressure is elevated this morning 170s systolic. Patient states he had been up ambulating in the hallway yesterday patient is postop on November 14 diagnostic laparoscopic lysis of adhesions converted to open exploratory laparotomy with extensive lysis of adhesions. 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 mass associated with bowel at the anastomic site Objective - Vital Signs Vital signs: Vital Signs Temp 98 F 11/20/16 07:00 Pulse 98 11/20/16 07:00 Resp 16 11/20/16 07:00 BP 177/98 11/20/16 07:00 Pulse Ox 97 11/20/16 07:00 Intake & Output 11/19/16 11/20/16 11/20/16 18:59 06:59 18:59 Intake Total 2806 Output Total 830 1140 1670 Balance -830 1666 -1670 Weight 115 kg Intake: Intake, IV Titration 2586 Amount Ampicillin-Sulbactam 3 gm 200 In Sodium Chloride 0.9% 100 ml @ 100 mls/hr IVPB Q6HR ANGELA Rx#:[id number] D5-0.45% NaCl with KCl 1000 20Meq/l 1,000 ml @ 125 mls/hr IV .Q8H ANGELA Rx#: [id number] Fat Emulsion 20% 250 ml 250 In Empty Bag 1 bag @ 21 mls/hr IV MoWeFr ANGELA Rx#: [id number] Mvi, Adult No.4 with Vit 1011 K 10 ml Trace (Conc-1Ml/ Dose) 1 ml In Amino Acid 5%-D25w+Lytes*E* 1,000 ml @ 90 mls/hr IV .BY DURATION ANGELA Rx#: [id number] Vancomycin 1,750 mg In 125 Sodium Chloride 0.9% 250 ml @ 125 mls/hr IVPB ONCE ONE Rx#:[id number] Oral 220 Output: Gastric Drainage 300 Drainage 80 140 70 Medial Abdomen 80 140 Right Abdomen 70 Urine 450 1000 1600 Uretheral (Mena) 450 1600 Other: Voiding Method Indwelling Catheter Indwelling Catheter # Voids 4 - Exam Physical exam 66-year-old gentleman resting in bed does not appear in any acute distress pleasant alert and oriented 3 Lungs essentially clear adequate air movement Heart S1-S2 audible and regular Abdomen surgical dressing and wound VAC removed suture line well approximated no redness Herberth-Guevara drains in place serous drainage bowel tones hypoactive tolerating clear liquid no nausea no vomiting indwelling Mena catheter currently clamped Extremities no edema noted - Labs CBC & Chem 7: 11/19/16 07:28 11/19/16 07:28 Labs: Abnormal Lab Results - Last 24 Hours (Table) 11/19/16 11/19/16 11/20/16 Range/Units 12:08 18:05 00:43 POC Glucose (mg/dL) 144 H 113 H 125 H (75-99) mg/dL 11/20/16 Range/Units 06:31 POC Glucose (mg/dL) 161 H (75-99) mg/dL Assessment and Plan Plan: Impression Present on admission abdominal pain bloating nausea sensation suspect due to partial small bowel obstruction History of unintentional weight loss greater than 10 pounds within the last 2 weeks CAT scan abdomen and pelvis wall thickening with masslike area noted involving terminal ileum and cecum may reflect neoplasm or chronic inflammatory process CAT scan abdomen and pelvis dilated small bowel likely reflecting partial small bowel obstruction A remote history greater than 35 years ago bowel resection with an appendectomy History of hypertension History of esophageal reflux Present on admission leukocytosis suspect reactive resolved 11/14/2016 diagnostic laparoscopic with lysis of adhesion converted to open exploratory laparotomy with extensive lysis of adhesions November 14 2016 drainage of an intra-abdominal abscess excision of inflammatory questionable malignant mass associated with bowel anastomic site 11/14/2016 resection of an ileocolic anastamosis of dealing with transverse colon Hypo-magnesium corrected resolved hypocalcemia Wound culture shows enteroccous faecium sensitive to penicillin currently on Zosyn Plan Clamped indwelling Mena catheter as directed if no evidence of urinary retention we'll remove the Mena catheter Pain control IV hydration DVT and GI prophylaxis Continue with IV Zosyn as ordered Continue with TPN for nutritional support Repeat labs in the morning Further recommendations pending Increase activity The above dictated assessment and findings were discussed with dr fisher Impression and the plan of care have been dictated as directed. Flower Simpson nurse practitioner acting as a scribe for dr fisher
[2016-11-20] MEDS: KETOROLAC 30 MG/ML 1 ML VIAL IVP PRN (13:12)
[2016-11-20 13:34] LABS: Glucose,Whole Blood 133 mg/dL (75-99)
[2016-11-20 16:54] LABS: Glucose,Whole Blood 145 mg/dL (75-99)
[2016-11-21 00:30] LABS: Glucose,Whole Blood 147 mg/dL (75-99)
[2016-11-21] MEDS: INSULIN LISPRO (humaLOG) 300 UNIT/3 ML VIAL SQ SCH ×4 (00:33→19:38)
[2016-11-21] MEDS: AMPICILLIN-SULBACTAM 3 GM in SODIUM CHLORIDE 0.9% 100 ML IVPB SCH ×6 (05:09→23:59)
[2016-11-21] MEDS: HYDROmorphone 1 MG/ML 1 ML SYRINGE IVP PRN ×5 (05:10→21:47)
[2016-11-21 05:47] LABS: Glucose,Whole Blood 143 mg/dL (75-99)
[2016-11-21] MEDS: KETOROLAC 30 MG/ML 1 ML VIAL IVP PRN (06:39)
[2016-11-21 08:16] LABS: Anion Gap 6 mmol/L; Blood Urea Nitrogen 9 mg/dL (9-20); Calcium 8.4 mg/dL (8.4-10.2); Carbon Dioxide 32 mmol/L (22-30); Chloride 103 mmol/L (98-107); Glucose 146 mg/dL (74-99); Magnesium 1.6 mg/dL (1.6-2.3); Non-African American GFR(MDRD) >60 (>60 ml/min/1.73 sqM); Phosphorous 3.3 mg/dL (2.5-4.5); Potassium 4.1 mmol/L (3.5-5.1); Sodium 141 mmol/L (137-145)
[2016-11-21] MEDS: HEPARIN SODIUM,PORCINE 5,000 UNIT/ML 1 ML VIAL SQ SCH ×3 (09:00→16:30)
--- NOTE | 2016-11-21 09:56 | PN ---
DATE OF SERVICE: 11/20/2016 Reason for follow-up: Abdominal abscess with enterococcus species. INTERVAL HISTORY: The patient is afebrile. Has been feeling better and NG has been discontinued, and tolerating a clear liquid diet. The patient denies significant chest pain or shortness of breath or cough or significant abdominal pain. On examination, blood pressure 147/91 with a pulse of 78, temperature 98.5. He is 97% on room air. General description is an elderly male up in the room in no distress. RESPIRATORY SYSTEM: Unlabored breathing. Clear to auscultation anteriorly. HEART: S1, S2 with regular rate and rhythm. ABDOMEN: Soft, no tenderness. LABS: Hemoglobin 10.7, white count 9.7. DIAGNOSTIC IMPRESSION AND PLAN: Patient with abdominal abscess in a patient status post resection of terminal ileum and cecal area with primary anastomosis. Patient at this time will continue with Unasyn and await clinical response. Continue supportive care. MTDD
[2016-11-21] MEDS: D5-0.45% NACL WITH KCL 20MEQ/L 1,000 ML IV SCH ×4 (10:00→20:47)
--- NOTE | 2016-11-21 10:34 | PN ---
DATE OF SERVICE: 11/20/2016 INTERVAL HISTORY: Mr. Sibley is a 66-year-old male who was admitted to the hospital with abdominal pain and intractable nausea and vomiting and found to have a bowel obstruction and mass-like lesion in the terminal ileum and cecum. Patient underwent diagnostic laparoscopy with lysis of adhesions and converted to open exploratory laparotomy with extensive lysis of adhesions and also ileum and cecal resection and ileocecal to transverse colon anastomosis. Patient was also found to have abdominal abscess. Wound cultures growing Enterococcus faecium and initially was on Zosyn currently changed to Unasyn as per ID recommendations. Otherwise, patient symptomatically is much improved today. Patient is able tolerate liquid diet and NG tube was discontinued. TPN has been discontinued as well. Otherwise, the patient denied any complaints of chest pain or shortness of breath. No acute overnight issues. Complete review of systems negative except as above. CURRENT MEDICATIONS: Reviewed. PHYSICAL EXAMINATION: A 66-year-old male lying on the bed, awake, alert, oriented x3. Appears to be in no apparent distress. VITALS: Blood pressure is 147/91, pulse is 78, respirations 16, temperature afebrile, pulse ox 97% on room air. HEENT: Atraumatic, normocephalic. Neck is supple. No JVD. CVS EXAM: S1, S2 heard. No murmurs, no gallop. LUNGS: Bilateral air entry is present. No wheezing or crackles. ABDOMEN: Soft and some tenderness at the surgical site. Bowel sounds are present. No guarding. AIRPORT OPERATIONS COORDINATOR: Awake, alert, oriented, x3. No focal deficit. EXTREMITIES: No edema. Pulses palpable bilaterally. No clubbing or cyanosis. PSYCHIATRIC: Cooperative. LABORATORY DATA: Reviewed. IMPRESSION: 1. Acute small bowel obstruction with ileocecal mass and abdominal abscess. Status post surgical exploration and open laparotomy and removal of adhesions. Biopsy results are pending at this time. 2. Abdominal abscess and wound cultures growing Enterococcus faecium. Currently on Unasyn. Zosyn was discontinued as per ID. 3. Remote history of appendectomy and bowel resection. 4. Gastroesophageal reflux disease. 5. Hypertension. 6. Ongoing tobacco abuse. 7. History of depression and anxiety. 8. Acute hypoxic respiratory rate failure, post surgery, resolved now. 9. Sepsis secondary to abdominal abscess, improved now. DISCUSSION AND PLAN: Patient will continue the antibiotics, continued on clear liquids and advance as tolerated. NG tube and TPN has been discontinued. Continue with the GI and DVT prophylaxis. ID is following this patient. Further recommendations based on the clinical course.
[2016-11-21] MEDS: 1: MVI, ADULT NO.4 WITH VIT K 10 ML, TRACE (CONC-1ML/DOSE) 1 ML in AMINO ACID 5%-D25W+LY IV SCH ×6 (12:13→22:04)
[2016-11-21 12:26] LABS: Glucose,Whole Blood 107 mg/dL (75-99)
--- NOTE | 2016-11-21 13:18 | P.PN ---
Subjective 66-year-old male seen and examined Patient currently is resting in bed there's been no new postop events. The surgical dressing was removed by Dr. fisher at the bedside this morning. The indwelling Mena catheter was clamped.. Patient states is passing gas no stool and tolerating clear liquid diet did note the patient's blood pressure is elevated this morning 170s systolic. Patient states he had been up ambulating in the hallway yesterday patient is postop on November 14 diagnostic laparoscopic lysis of adhesions converted to open exploratory laparotomy with extensive lysis of adhesions. 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 mass associated with bowel at the anastomic site Objective - Vital Signs Vital signs: Vital Signs Temp 97.7 F 11/21/16 07:40 Pulse 91 11/21/16 07:40 Resp 16 11/21/16 07:40 BP 170/94 11/21/16 07:40 Pulse Ox 96 11/21/16 07:40 Intake & Output 11/20/16 11/21/16 11/21/16 18:59 06:59 18:59 Intake Total 720 Output Total 2370 5588 Balance -1650 -5588 Weight 115 kg 115 kg Intake: Oral 720 Output: Drainage 70 88 Left Abdomen 13 Right Abdomen 70 75 Urine 2300 5500 Uretheral (Mena) 2300 3500 Other: Voiding Method Indwelling Catheter Indwelling Catheter Indwelling Catheter # Voids 4 - Exam Physical exam 66-year-old gentleman resting in bed does not appear in any acute distress pleasant alert and oriented 3 Lungs essentially clear adequate air movement Heart S1-S2 audible and regular Abdomen surgical dressing and wound VAC removed suture line well approximated no redness Herberth-Guevara drains in place serous drainage bowel tones hypoactive tolerating clear liquid no nausea no vomiting indwelling Mena catheter currently clamped Extremities no edema noted - Labs CBC & Chem 7: 11/19/16 07:28 11/21/16 06:58 Labs: Abnormal Lab Results - Last 24 Hours (Table) 11/20/16 11/20/16 11/21/16 Range/Units 13:27 16:52 00:24 Carbon Dioxide (22-30) mmol/L Glucose (74-99) mg/dL POC Glucose (mg/dL) 133 H 145 H 147 H (75-99) mg/dL 11/21/16 11/21/16 11/21/16 Range/Units 05:44 06:58 12:23 Carbon Dioxide 32 H (22-30) mmol/L Glucose 146 H (74-99) mg/dL POC Glucose (mg/dL) 143 H 107 H (75-99) mg/dL Assessment and Plan Plan: Impression Present on admission abdominal pain bloating nausea sensation suspect due to partial small bowel obstruction History of unintentional weight loss greater than 10 pounds within the last 2 weeks CAT scan abdomen and pelvis wall thickening with masslike area noted involving terminal ileum and cecum may reflect neoplasm or chronic inflammatory process CAT scan abdomen and pelvis dilated small bowel likely reflecting partial small bowel obstruction A remote history greater than 35 years ago bowel resection with an appendectomy History of hypertension History of esophageal reflux Present on admission leukocytosis suspect reactive resolved 11/14/2016 diagnostic laparoscopic with lysis of adhesion converted to open exploratory laparotomy with extensive lysis of adhesions November 14 2016 drainage of an intra-abdominal abscess excision of inflammatory questionable malignant mass associated with bowel anastomic site 11/14/2016 resection of an ileocolic anastamosis of dealing with transverse colon Hypo-magnesium corrected resolved hypocalcemia improved Wound culture shows enteroccous faecium sensitive to penicillin currently on Zosyn Hypo-magnesium corrected Plan Clamped indwelling Mena catheter as directed if no evidence of urinary retention we'll remove the Mena catheter Pain control IV hydration DVT and GI prophylaxis Continue with IV Zosyn as ordered Continue with TPN for nutritional support Repeat labs in the morning Further recommendations pending Increase activity The above dictated assessment and findings were discussed with dr natalia Ortega and the plan of care have been dictated as directed. Flower Simpson nurse practitioner acting as a scribe for dr fisher
[2016-11-21] MEDS: ALVIMOPAN 12 MG CAPSULE PO SCH (14:12)
[2016-11-21] MEDS: TAMSULOSIN 0.4 MG CAP.ER.24H PO SCH (14:12)
[2016-11-21] MEDS: busPIRone HCl 10 MG TAB PO SCH ×3 (14:13→21:43)
[2016-11-21] MEDS: ATENOLOL 50 MG TAB PO SCH (14:13)
[2016-11-21] MEDS: PANTOPRAZOLE 40 MG/10 ML VIAL IV SCH (14:13)
[2016-11-21] MEDS: MAGNESIUM SULFATE-D5W PMX 1 GM in DEXTROSE/WATER 1 100ML.BAG IVPB SCH ×2 (16:24→19:40)
[2016-11-21] MEDS: FAT EMULSION 20% 250 ML in EMPTY BAG 1 BAG IV SCH (20:47)
[2016-11-21 23:55] LABS: Glucose,Whole Blood 149 mg/dL (75-99)
[2016-11-22] MEDS: HYDROmorphone 1 MG/ML 1 ML SYRINGE IVP PRN ×6 (01:17→19:46)
[2016-11-22] MEDS: D5-0.45% NACL WITH KCL 20MEQ/L 1,000 ML IV SCH (05:29)
[2016-11-22] MEDS: AMPICILLIN-SULBACTAM 3 GM in SODIUM CHLORIDE 0.9% 100 ML IVPB SCH ×3 (05:30→17:45)
[2016-11-22] MEDS: INSULIN LISPRO (humaLOG) 300 UNIT/3 ML VIAL SQ SCH ×4 (05:32→17:22)
[2016-11-22 05:40] LABS: Glucose,Whole Blood 160 mg/dL (75-99)
[2016-11-22 08:06] LABS: Anion Gap 8 mmol/L; Blood Urea Nitrogen 10 mg/dL (9-20); Calcium 8.6 mg/dL (8.4-10.2); Carbon Dioxide 31 mmol/L (22-30); Chloride 100 mmol/L (98-107); Glucose 132 mg/dL (74-99); Magnesium 1.9 mg/dL (1.6-2.3); Non-African American GFR(MDRD) >60 (>60 ml/min/1.73 sqM); Phosphorous 3.8 mg/dL (2.5-4.5); Potassium 4.5 mmol/L (3.5-5.1); Sodium 139 mmol/L (137-145)
[2016-11-22] MEDS: ATENOLOL 50 MG TAB PO SCH (08:38)
[2016-11-22] MEDS: PANTOPRAZOLE 40 MG TABLET PO SCH (08:38)
[2016-11-22] MEDS: TAMSULOSIN 0.4 MG CAP.ER.24H PO SCH (08:38)
[2016-11-22] MEDS: HEPARIN SODIUM,PORCINE 5,000 UNIT/ML 1 ML VIAL SQ SCH ×3 (08:39→15:46)
[2016-11-22] MEDS: 1: MVI, ADULT NO.4 WITH VIT K 10 ML, TRACE (CONC-1ML/DOSE) 1 ML in AMINO ACID 5%-D25W+LY IV SCH ×9 (09:16→19:54)
--- NOTE | 2016-11-22 10:08 | P.PN ---
Subjective Patient is a 66-year-old white male who is status post exploratory laparotomy on November 14, he had lysis of adhesions, drainage of an intra-abdominal abscess, and excision of inflammatory/malignant questionable mass associated with bowel at anastomotic site. At this time the patient is passing flatus and having bowel activity. He is tolerating a clear liquid diet. His Mena catheter has been clamped and he realizes sensation of needing to urinate as his bladder fills. Patient's side KANDI drainage is serosanguineous. Objective - Vital Signs Vital signs: Vital Signs Temp 97.0 F L 11/22/16 02:00 Pulse 85 11/22/16 04:00 Resp 16 11/22/16 04:00 BP 151/87 11/22/16 02:00 Pulse Ox 97 11/22/16 02:00 Intake & Output 11/21/16 11/22/16 11/22/16 18:59 06:59 18:59 Intake Total 3131 2025 1008 Output Total 3390 3495 Balance -259 -1470 1008 Weight 115 kg 115 kg Intake: Intake, IV Titration 2811 2025 1008 Amount Amino Acid 5%-D25w+Lytes* 675 E* 1,000 ml @ 90 mls/hr IV .BY DURATION ANGELA Rx#: [id number] D5-0.45% NaCl with KCl 1000 600 20Meq/l 1,000 ml @ 125 mls/hr IV .Q8H ANGELA Rx#: [id number] Magnesium Sulfate-D5w Pmx 750 1 gm In Dextrose/Water 1 100ml.bag @ 100 mls/hr IVPB Q1H ANGELA Rx#: [id number] Mvi, Adult No.4 with Vit 1811 1008 K 10 ml Trace (Conc-1Ml/ Dose) 1 ml In Amino Acid 5%-D25w+Lytes*E* 1,000 ml @ 90 mls/hr IV .BY DURATION ANGELA Rx#: [id number] Oral 320 Output: Drainage 90 45 Left Abdomen 5 Right Abdomen 90 40 Urine 3300 3450 Uretheral (Mena) 1900 Other: Voiding Method Indwelling Catheter Indwelling Catheter # Voids 4 # Bowel Movements 3 - Constitutional General appearance: Present: average body habitus, no acute distress - Respiratory Respiratory: bilateral: CTA - Cardiovascular Rhythm: regular Heart sounds: normal: S1, S2 - Gastrointestinal Gastrointestinal Comment(s): Incision is clean and dry KANDI drainage serosanguineous 45 mL General gastrointestinal: Present: normal bowel sounds - Psychiatric Psychiatric: Present: A&O x's 3, appropriate affect, intact judgment & insight - Labs CBC & Chem 7: 11/19/16 07:28 11/22/16 06:58 Labs: Abnormal Lab Results - Last 24 Hours (Table) 11/21/16 11/21/16 11/22/16 Range/Units 12:23 23:52 05:34 Carbon Dioxide (22-30) mmol/L Glucose (74-99) mg/dL POC Glucose (mg/dL) 107 H 149 H 160 H (75-99) mg/dL 11/22/16 Range/Units 06:58 Carbon Dioxide 31 H (22-30) mmol/L Glucose 132 H (74-99) mg/dL POC Glucose (mg/dL) (75-99) mg/dL Assessment and Plan Plan: Impression/plan: 1. Status post bowel resection November 14 and drainage of abscess and extensive lysis of adhesions 2. Patient with return of bowel function 3. Diet to be advanced 4. Will DC Mena catheter
--- NOTE | 2016-11-22 10:48 | PN ---
DATE OF SERVICE: 11/21/2016 REASON FOR FOLLOWUP: Abdominal abscess. INTERVAL HISTORY: The patient is afebrile. He has been breathing comfortably. Denies significant chest pain or cough. Abdominal pain is currently controlled. No nausea or vomiting. Tolerating clear liquid diet. On examination, blood pressure 142/76 with a pulse of 81, temperature 97.3, he is 97% on room air. GENERAL DESCRIPTION: An elderly male, lying in bed, in no distress. RESPIRATORY SYSTEM: Unlabored breathing. Clear to auscultation. HEART: S1, S2 regular rate and rhythm. ABDOMEN: Soft. No tenderness. LABS: BUN of 11, creatinine 0.92. DIAGNOSTIC IMPRESSION AND PLAN: Enterococcus abdominal abscess, status post drainage. Patient currently is on Unasyn and that will be continued over the weekend, depending on clinical response we will discharge home with antibiotics. Continue supportive care.
--- NOTE | 2016-11-22 11:24 | PN ---
DATE OF SERVICE: 11/21/2016 INTERVAL HISTORY: Mr. Sibley is a 66-year-old male, was admitted to the hospital with abdominal pain follow and intractable nausea and vomiting, found to have a bowel obstruction and mass-like lesion in the terminal ileum and cecum. Patient underwent a diagnostic laparoscopy with lysis of adhesions and converted to open exploratory laparotomy with extensive lysis of adhesions and also ileocecal resection with anastomosis to transverse colon. Patient was also found to have abdominal abscess and wound cultures growing Enterococcus faecium, currently on antibiotics in the form of Unasyn as per ID. Apparently patient is clinically much improved now. NG tube has been discontinued. Patient is tolerating liquid diet. Patient did have 3 to 4 loose bowel movements today. Patient did not have any abdominal pain. The abdominal drain tubes draining a little amount of fluid. No fever. No chills. No acute overnight issues. Review of systems completely negative except as above. No complaints of shortness of breath. CURRENT MEDICATIONS: Reviewed. PHYSICAL EXAMINATION: A 66-year-old male lying in bed comfortably, awake, alert, oriented x3, appears in no apparent distress. VITALS: Blood pressure is 170/94, pulse is 91, respirations 16, temperature afebrile, pulse ox 96% on room air. HEENT: Atraumatic, normocephalic. Neck is supple. No JVD. CVS EXAM: S1, S2 heard. No murmurs or gallop. LUNGS: Bilateral air entry is present. No wheezing. No crackles. ABDOMEN: Soft, mild tenderness at the surgical site. Bowel sounds are sluggish. No palpable organomegaly. WELDING ENGINEER: Awake, alert, oriented x3. No further deficits. Cranial nerves grossly intact. EXTREMITIES: No edema, pulses palpable bilaterally. No clubbing or cyanosis. PSYCHIATRIC: Cooperative. LABORATORY DATA: Sodium 141, potassium 4.1, chloride 103, bicarb 32, BUN 9, creatinine 0.92, magnesium 1.6. IMPRESSION: 1. Small bowel obstruction with ileocecal mass and abdominal abscess, status post surgical exploration and open laparotomy and lysis of adhesions. Biopsies are still pending at this time. 2. Abdominal abscess and wound cultures growing Enterococcus faecium and currently on Unasyn, was on Zosyn before. 3. Remote history of appendectomy and bowel resection. 4. Gastroesophageal reflux disease. 5. Hypertension. 6. Ongoing tobacco abuse. 7. History of depression and anxiety. 8. Acute hypoxic respiratory failure post surgery, resolved now. 9. Sepsis secondary to abdominal abscess, improved now. DISCUSSION AND PLAN: Patient will be continued on antibiotics, continue the clear liquids and advance as tolerated. Continue the DVT prophylaxis and GI prophylaxis. ID is on board. Further recommendations based on ID and General Surgery. Further recommendations based on clinical course.
[2016-11-22 12:13] LABS: Glucose,Whole Blood 131 mg/dL (75-99)
[2016-11-22] MEDS: busPIRone HCl 10 MG TAB PO SCH ×4 (12:45→20:34)
[2016-11-22 17:15] LABS: Glucose,Whole Blood 133 mg/dL (75-99)
[2016-11-23 00:05] LABS: Glucose,Whole Blood 102 mg/dL (75-99)
[2016-11-23] MEDS: HYDROmorphone 1 MG/ML 1 ML SYRINGE IVP PRN ×5 (00:10→21:47)
[2016-11-23] MEDS: HEPARIN SODIUM,PORCINE 5,000 UNIT/ML 1 ML VIAL SQ SCH ×3 (00:11→16:07)
[2016-11-23] MEDS: AMPICILLIN-SULBACTAM 3 GM in SODIUM CHLORIDE 0.9% 100 ML IVPB SCH ×4 (00:11→18:37)
[2016-11-23] MEDS: INSULIN LISPRO (humaLOG) 300 UNIT/3 ML VIAL SQ SCH ×4 (00:18→18:42)
[2016-11-23] MEDS: D5-0.45% NACL WITH KCL 20MEQ/L 1,000 ML IV SCH ×4 (05:10→22:06)
[2016-11-23 05:51] LABS: Glucose,Whole Blood 137 mg/dL (75-99)
[2016-11-23] MEDS ORDERED: HYDROcodone/APAP 7.5-325MG 1 EACH TAB PO PRN (07:52)
--- NOTE | 2016-11-23 07:57 | P.PN ---
Subjective Patient is a 66-year-old white male who is status post exploratory laparotomy on November 14, he had lysis of adhesions, drainage of an intra-abdominal abscess, and excision of inflammatory/malignant questionable mass associated with bowel at anastomotic site. At this time the patient is passing flatus and having bowel activity. He is tolerating a clear liquid diet. Patient's side KANDI drainage is serosanguineous. Objective - Vital Signs Vital signs: Vital Signs Temp 98.4 F 11/23/16 00:00 Pulse 76 11/23/16 04:00 Resp 18 11/23/16 04:00 BP 161/77 11/23/16 00:00 Pulse Ox 96 11/23/16 00:00 Intake & Output 11/22/16 11/23/16 11/23/16 18:59 06:59 18:59 Intake Total 1248 900 Output Total 850 270 Balance 398 630 Weight 111.5 kg Intake: Intake, IV Titration 1008 900 Amount Amino Acid 5%-D25w+Lytes* 540 E* 1,000 ml @ 90 mls/hr IV .BY DURATION ANGELA Rx#: [id number] Mvi, Adult No.4 with Vit 1008 K 10 ml Trace (Conc-1Ml/ Dose) 1 ml In Amino Acid 5%-D25w+Lytes*E* 1,000 ml @ 90 mls/hr IV .BY DURATION ANGELA Rx#: [id number] Mvi, Adult No.4 with Vit 360 K 10 ml Trace (Conc-1Ml/ Dose) 1 ml In Amino Acid 5%-D25w+Lytes*E* 1,000 ml @ 90 mls/hr IV .BY DURATION ANGELA Rx#: [id number] Oral 240 Output: Drainage 20 Right Abdomen 20 Urine 850 250 Uretheral (Mena) 600 Other: Voiding Method Indwelling Catheter Indwelling Catheter # Voids 2 - Constitutional General appearance: Present: average body habitus - Respiratory Details: Decreased breath sounds at the bases - Cardiovascular Rhythm: regular Heart sounds: normal: S1, S2 - Gastrointestinal Gastrointestinal Comment(s): KANDI drains serosanguineous Incision clean and dry General gastrointestinal: Present: normal bowel sounds - Psychiatric Psychiatric: Present: A&O x's 3, appropriate affect, intact judgment & insight - Labs CBC & Chem 7: 11/19/16 07:28 11/22/16 06:58 Labs: Abnormal Lab Results - Last 24 Hours (Table) 11/22/16 11/22/16 11/22/16 Range/Units 06:58 12:11 17:12 Carbon Dioxide 31 H (22-30) mmol/L Glucose 132 H (74-99) mg/dL POC Glucose (mg/dL) 131 H 133 H (75-99) mg/dL 11/23/16 11/23/16 Range/Units 00:01 05:47 Carbon Dioxide (22-30) mmol/L Glucose (74-99) mg/dL POC Glucose (mg/dL) 102 H 137 H (75-99) mg/dL Assessment and Plan Plan: Impression/plan: 1. Status post bowel resection November 14 and drainage of abscess and extensive lysis of adhesions 2. Patient with return of bowel function 3. Probable DC home tomorrow
[2016-11-23 08:10] LABS: Anion Gap 5 mmol/L; Blood Urea Nitrogen 12 mg/dL (9-20); Calcium 8.7 mg/dL (8.4-10.2); Carbon Dioxide 34 mmol/L (22-30); Chloride 100 mmol/L (98-107); Glucose 123 mg/dL (74-99); Magnesium 1.8 mg/dL (1.6-2.3); Non-African American GFR(MDRD) >60 (>60 ml/min/1.73 sqM); Phosphorous 3.7 mg/dL (2.5-4.5); Potassium 4.4 mmol/L (3.5-5.1); Sodium 139 mmol/L (137-145)
[2016-11-23] MEDS: HYDROcodone/APAP 7.5-325MG 1 EACH TAB PO PRN ×3 (08:31→18:41)
[2016-11-23] MEDS: PANTOPRAZOLE 40 MG TABLET PO SCH (08:33)
[2016-11-23] MEDS: 1: MVI, ADULT NO.4 WITH VIT K 10 ML, TRACE (CONC-1ML/DOSE) 1 ML in AMINO ACID 5%-D25W+LY IV SCH ×6 (08:33→09:35)
[2016-11-23] MEDS: ATENOLOL 50 MG TAB PO SCH (08:33)
[2016-11-23] MEDS: TAMSULOSIN 0.4 MG CAP.ER.24H PO SCH (08:33)
[2016-11-23] MEDS: busPIRone HCl 10 MG TAB PO SCH ×4 (08:34→21:52)
[2016-11-23 11:58] LABS: Glucose,Whole Blood 134 mg/dL (75-99)
[2016-11-23] MEDS: MAGNESIUM SULFATE-D5W PMX 1 GM in DEXTROSE/WATER 1 100ML.BAG IVPB SCH ×2 (15:03→16:06)
[2016-11-23 18:23] LABS: Glucose,Whole Blood 130 mg/dL (75-99)
[2016-11-24] MEDS: HYDROcodone/APAP 7.5-325MG 1 EACH TAB PO PRN ×3 (00:06→12:01)
[2016-11-24] MEDS: AMPICILLIN-SULBACTAM 3 GM in SODIUM CHLORIDE 0.9% 100 ML IVPB SCH ×4 (00:06→17:02)
[2016-11-24] MEDS: HEPARIN SODIUM,PORCINE 5,000 UNIT/ML 1 ML VIAL SQ SCH ×3 (00:10→17:02)
[2016-11-24] MEDS: INSULIN LISPRO (humaLOG) 300 UNIT/3 ML VIAL SQ SCH ×4 (00:18→17:02)
[2016-11-24 00:33] LABS: Glucose,Whole Blood 123 mg/dL (75-99)
[2016-11-24] MEDS: HYDROmorphone 1 MG/ML 1 ML SYRINGE IVP PRN (04:43)
[2016-11-24] MEDS: D5-0.45% NACL WITH KCL 20MEQ/L 1,000 ML IV SCH ×2 (06:03→16:51)
[2016-11-24 06:07] LABS: Glucose,Whole Blood 102 mg/dL (75-99)
[2016-11-24] MEDS ORDERED: [UNRECOGNIZED DRUG - REMARK] IV SCH ×4 (07:00)
[2016-11-24 07:40] LABS: Anion Gap 7 mmol/L; Blood Urea Nitrogen 13 mg/dL (9-20); Calcium 8.2 mg/dL (8.4-10.2); Carbon Dioxide 30 mmol/L (22-30); Chloride 101 mmol/L (98-107); Glucose 96 mg/dL (74-99); Magnesium 1.9 mg/dL (1.6-2.3); Non-African American GFR(MDRD) >60 (>60 ml/min/1.73 sqM); Potassium 4.5 mmol/L (3.5-5.1); Sodium 138 mmol/L (137-145)
[2016-11-24] MEDS: TAMSULOSIN 0.4 MG CAP.ER.24H PO SCH (08:04)
[2016-11-24] MEDS: PANTOPRAZOLE 40 MG TABLET PO SCH (08:04)
[2016-11-24] MEDS: ATENOLOL 50 MG TAB PO SCH (08:04)
[2016-11-24] MEDS: busPIRone HCl 10 MG TAB PO SCH ×3 (08:11→17:31)
--- NOTE | 2016-11-24 09:16 | P.PN ---
Subjective Principal diagnosis: Postop after exploratory laparotomy Patient is doing well. N onausea or vomting. tolerating a diet . ambulating well. Objective - Vital Signs Vital signs: Vital Signs Temp 97.4 F L 11/24/16 07:30 Pulse 70 11/24/16 07:30 Resp 18 11/24/16 07:30 BP 154/84 11/24/16 07:30 Pulse Ox 97 11/24/16 07:30 Intake & Output 11/23/16 11/24/16 11/24/16 18:59 06:59 18:59 Intake Total 1011 1011 Output Total 40 0 Balance 1011 971 0 Weight 110.5 kg Intake: Intake, IV Titration 1011 1011 Amount Mvi, Adult No.4 with Vit 1011 1011 K 10 ml Trace (Conc-1Ml/ Dose) 1 ml In Amino Acid 5%-D25w+Lytes*E* 1,000 ml @ 45 mls/hr IV .BY DURATION ANGELA Rx#: [id number] Output: Drainage 40 0 Left Abdomen 20 0 Right Abdomen 20 0 - Constitutional General appearance: Present: cooperative - Cardiovascular Rhythm: regular - Gastrointestinal Gastrointestinal Comment(s): abd is soft and nonteder, wound is looking healthy. MInimal drinage. No active signs of infection. - Labs CBC & Chem 7: 11/19/16 07:28 11/24/16 06:57 Labs: Abnormal Lab Results - Last 24 Hours (Table) 11/23/16 11/23/16 11/24/16 Range/Units 11:55 18:09 00:18 POC Glucose (mg/dL) 134 H 130 H 123 H (75-99) mg/dL Calcium (8.4-10.2) mg/dL 11/24/16 11/24/16 Range/Units 05:50 06:57 POC Glucose (mg/dL) 102 H (75-99) mg/dL Calcium 8.2 L (8.4-10.2) mg/dL Assessment and Plan (1) Small bowel obstruction Status: Acute Plan: DOing well s/p ex lap DC PICC, KANDI Ok top discaharge on regular diet. f/u in 1 week with me
--- NOTE | 2016-11-24 10:55 | PN ---
DATE OF SERVICE: 11/23/2016 Reason for follow-up: Abdominal abscess. INTERVAL HISTORY: The patient is afebrile. He is feeling better, breathing comfortably. Denies significant chest pain, shortness of breath or cough. Abdominal pain is currently controlled. Has been tolerating a regular diet. On examination, blood pressure 109/62 with a pulse of 75, temperature 98.3. He is 97% on room air. General description is an elderly male lying in bed in no distress. RESPIRATORY SYSTEM: Unlabored breathing. Clear to auscultation anteriorly. HEART: S1, S2 regular rate and rhythm. ABDOMEN: Soft. No tenderness. LABS: creatinine 1.05. DIAGNOSTIC IMPRESSION AND PLAN: Patient with Enterococcus faecalis. Patient abdominal abscess that is Vancomycin sensitive. Currently the patient is on Unasyn and has been doing well. White count has normalized. If the patient continues to improve hopefully will be able to finish therapy with oral antibiotics. Continue supportive care. MTDD
--- NOTE | 2016-11-24 11:46 | PN ---
DATE OF SERVICE: 11/22/2016 INTERVAL HISTORY: Mr. Sibley is a 66-year-old male who was admitted to the hospital with abdominal pain and intractable nausea, vomiting and found to have bowel obstruction and a mass-like lesion in the terminal ileum and cecum. Patient underwent diagnostic laparoscopy with lysis of adhesions and converted to open laparotomy with extensive lysis of adhesions and ileocecal resection and removal of abdominal abscess and anastomosis to transverse colon. The patient currently having KANDI drain and is draining serosanguineous discharge and patient otherwise is tolerating p.o. diet and NG tube has been discontinued and patient's Mena catheter has been discontinued as well. Patient is having bowel movement today. Otherwise, the patient is tolerating a p.o. diet. Patient was encouraged ambulation. No fever, no chills. No acute overnight issues. Patient is clinically much improved. REVIEW OF SYSTEMS: CONSTITUTIONAL: No fever, no chills. RESPIRATORY: No cough or sputum production. CARDIOVASCULAR: No chest pain or short of breath. ABDOMEN: No nausea, vomiting, abdominal pain. GENITOURINARY: Negative. ENDOCRINE: Negative. PSYCHIATRY: Negative. All other 14-point review of system negative except as above. CURRENT MEDICATIONS: Reviewed. PHYSICAL EXAMINATION: A 66-year-old male, lying in bed, comfortably, awake, alert, oriented x3. Appears to be in no apparent distress. VITALS: Blood pressure is 143/84, pulse is 84, respiration 16, temperature afebrile, pulse ox 98% on room air. HEENT: Atraumatic, normocephalic. Neck is supple. No JVD. CVS EXAM: S1, S2 heard. No murmurs, no gallop. LUNGS: Bilateral air entry is present. No wheezing. No crackles. ABDOMEN: Soft, nontender. The surgical site is intact. Patient is still having serosanguineous drainage in the drain bags. LINE PRODUCER: Awake, alert, oriented x3. No focal deficit. EXTREMITIES: No edema. Pulses palpable bilaterally. No clubbing or cyanosis. PSYCHIATRIC: Cooperative. LABORATORY DATA: Sodium 139, potassium 4.5, chloride 100, bicarb 31. BUN 10, creatinine 0.96. Blood sugar is 132. Magnesium 1.9. IMPRESSION: 1. Small bowel obstruction with ileocecal mass and abdominal abscess, status post surgical exploration and open laparotomy and lysis of adhesions. Biopsies are showed benign colon and small bowel mucosa showing chronic active enteritis with submucosal abscess, fibrosis and fat necrosis and acute serositis suggestive of perforation. Benign reactive lymph nodes. 2. Abdominal abscess with the wound cultures growing Enterococcus faecium, currently on antibiotic in the form of Unasyn as per Infectious Disease. 3. Remote history of appendectomy and bowel resection. 4. Gastroesophageal reflux disease. 5. Hypertension. 6. Ongoing tobacco abuse. 7. History of depression and anxiety. 8. Acute hypoxic respiratory failure post surgery, now currently saturating on room air. 9. Sepsis secondary to abdominal abscess, improved now. DISCUSSION AND PLAN: The patient will be continued on antibiotics, continue with liquid diet and advance as tolerated. Patient is having ( ) flatus and bowel movement. Otherwise, the patient is still having drain tube. Otherwise, ( ) is clinically much improved. Continue the current management and General Surgery is on board. Further recommendations based on the clinical course.
[2016-11-24 12:10] LABS: Glucose,Whole Blood 128 mg/dL (75-99)
--- NOTE | 2016-11-24 12:30 | PN ---
DATE OF SERVICE: 11/23/2016 INTERVAL HISTORY: Mr. Sibley is a 66-year-old male admitted to the hospital with abdominal pain and nausea, vomiting. Found to have a bowel obstruction and patient underwent exploratory laparotomy and had extensive lysis of adhesions and also found to have masslike lesion in the terminal ileum and cecum. Biopsy is benign. Otherwise, patient underwent anastomosis and currently patient is tolerating p.o. diet and had a bowel movement and flatus. Patient is still having drain tube; otherwise, patient is clinically much improved now. Mena catheter has been discontinued as well. Patient will be advanced to soft and regular diet in the next 1 or 2 days and anticipate discharge soon. REVIEW OF SYSTEMS: CONSTITUTIONAL: No fever, no chills. RESPIRATORY: No sputum production. CARDIOVASCULAR: No chest pain, no leg swelling. ABDOMEN: No nausea, vomiting or abdominal pain. GENITOURINARY: Negative. ENDOCRINE: Negative. PSYCHIATRIC: Negative. SKIN: Negative. All other 14-point review of systems negative except as above. CURRENT MEDICATIONS: Reviewed. PHYSICAL EXAM: A 66-year-old male, lying in the bed, comfortably, awake, alert and oriented x3. Patient appears to be in no apparent distress. VITALS: Blood pressure is 152/80, pulse is 74, respirations 16, temperature afebrile, pulse ox 94% on room air. HEENT: Atraumatic, normocephalic. Neck is supple, no JVD. BOILERMAKER MECHANIC EXAM: S1, S2 heard. No murmurs, no gallop. LUNGS: Bilateral air entry is present. Abdomen is soft. Minimal tenderness at the surgical site. Bowel sounds are present. Drainage tube intact with serosanguineous drainage. CVS: Awake, alert, oriented x3. No focal deficit. EXTREMITIES: No edema. Pulses palpable bilaterally. No clubbing or cyanosis. PSYCHIATRIC: Cooperative. LABORATORY DATA: Sodium 139, potassium 4.4, chloride 100, bicarb is 24. BUN 12, creatinine 1.05, blood sugar is 123, magnesium 1.8. IMPRESSION: 1. Small bowel obstruction, with ileocecal and a masslike lesion in the abdomen are status post surgical exploration and open laparotomy and lysis of adhesions, biopsy showed benign mucosa. 2. Abdominal abscess with wound cultures growing Enterococcus faecium, currently on Unasyn. 3. Sepsis secondary to abdominal abscess, improved now. 4. Remote history of appendectomy and bowel resection. 5. Gastroesophageal reflux disease. 6. Hypertension. 7. Ongoing tobacco use. 8. History of depression and anxiety. 9. Acute hypoxic respiratory failure post surgery, resolved now. 10. ( ). DISCUSSION AND PLAN: Patient will continue with current management. Advance diet as tolerated. Anticipate discharge in the next 24 hours with more clinical improvement.
[2016-11-24 15:50] VITALS: BP 165/87; PULSE 78; RESP 16; TEMP 98
[2016-11-24 17:16] LABS: Glucose,Whole Blood 105 mg/dL (75-99)
--- NOTE | 2016-11-25 07:04 | PN ---
DATE OF SERVICE: 11/24/2016 Reason for follow-up is abdominal abscess, Enterococcus faecium. INTERVAL HISTORY: The patient is afebrile. He was seen on rounds this morning where the patient was breathing comfortably. Abdominal pain is currently controlled with pain medication, has been tolerating a regular diet. No worsening diarrhea. Denies having any chest pain or shortness of breath or cough. On examination, blood pressure is 154/84 with a pulse of 70, temperature 97.4. He is 97% on room air. No major description. General description is an elderly male, lying in bed in no distress. RESPIRATORY SYSTEM: Unlabored breathing. Clear to auscultation anteriorly. HEART: S1, S2 regular rate and rhythm. ABDOMEN: Soft, no tenderness. LABS: BUN of 13, creatinine 1.11. DIAGNOSTIC IMPRESSION AND PLAN: Patient with abdominal abscess. Culture has been positive with Enterococcus faecium, sensitive to penicillin. He did well on Unasyn and switched over to Augmentin 875 b.i.d. for another 10 days with close outpatient follow-up.
--- NOTE | 2016-11-25 12:32 | DS ---
DATE OF ADMISSION: 11/12/2016 DATE OF DISCHARGE: 11/24/2016 DISCHARGE DIAGNOSES: 1. Small bowel obstruction with ileocecal and mass-like lesion in the abdomen, status post surgical exploration and open laparotomy and lysis of adhesions. 2. Biopsy showed benign mucosa. 3. Abdominal abscess with wound cultures grown Enterococcus faecium, on Unasyn in the hospital and changed to Augmentin. 4. Sepsis secondary to abdominal abscess, improved now. 5. Remote history of appendectomy and bowel resection. 6. Gastroesophageal reflux disease. 7. Hypertension. 8. Ongoing tobacco abuse. 9. Depression and anxiety. 10. Acute hypoxic respiratory failure postsurgery, resolved. 11. Deep venous thrombosis prophylaxis. HOSPITAL COURSE: Mr. Sibley is a 66-year-old male without significant past medical history came to the hospital with abdominal pain, nausea, vomiting. Patient was found to have bowel obstruction and patient underwent exploratory laparotomy laparoscopically and converted to exploratory laparotomy and extensive lysis of adhesions and also found to have mass-like lesion in the terminal ileum and cecum. Patient underwent resection with anastomosis to the transverse colon and a biopsy report showed benign lesions and mucosa. Otherwise, the patient was initially kept n.p.o. with NG tube and started on TPN. Once the bowel movements started, the patient was eventually started on liquid diet and advanced as tolerated. The patient was also having Mena catheter placement for urinary retention, which has been discontinued. Patient is able to void spontaneously at this time. The patient is tolerating a p.o. diet. Drain tubes for the abdominal surgery have been removed today. Otherwise, the patient is stable to be discharged home. DISCHARGE PHYSICAL EXAMINATION: A 66-year-old male, lying on the bed comfortably, awake, alert, oriented x3. Appears to be in no apparent distress. VITALS: Blood pressure is 165/87, pulse is 78, temperature afebrile, pulse ox 96% on room air. Laboratory data reviewed. Discharge physical examination done. Discharge medications include: 1. Atenolol 50 mg p.o. daily. 2. Multivitamins 1 tablet p.o. daily. 3. Omeprazole 20 mg p.o. daily. 4. Buspirone 10 mg p.o. q.i.d. 5. Augmentin 1 tablet q.12 hourly for 10 days. 6. Geff 5/325 one tablet p.o. q.6 hourly p.r.n. for pain. Patient will be discharged home in stable condition. Home with home healthcare services. Follow with Dr. Jaspreet Norris. Follow with Dr. Jose Núñez in 1 to 2 days. Regular diet.
--- NOTE | 2016-11-26 13:06 | CDI ---
Date: 11/26/2016 12:53:00 PM From: Michelel Baker/Magalie Crouch Blood Or Blood Bank Technician Admit Date: 11/12/2016 6:42:00 PM Patient Name: Joseph Sibley Visit Number: [id number] Discharge Date: Dr. Maryanne Abdalla Sepsis was documented in progress notes starting 11/19 and on the discharge summary. History/Risk Factors: Admitted with SBO and peritoneal abscess. Clinical Indicators: In ED, temp 98.3, pulse 81, resp 18, BP 149/89, WBC 19.2 Treatment: IV Zosyn Definition of Present on Admission (POA): A diagnosis present at the time the order for admission to inpatient status was written. For each diagnosis, documentation must be clear to determine if the condition was present at the time of the patients inpatient admission or developed during the hospital stay. Please clarify in progress notes and discharge summary as to whether sepsis was: ? Y = Yes, the condition was present at the time of the order for inpatient admission. ? N = No, the condition was not present at the time of the order for inpatient admission. ? W = Clinically undetermined if the condition was present at the time of the order for inpatient admission. Please continue to document in your progress notes and discharge summary in order to capture severity of illness and risk of mortality. Include clinical findings that support your diagnosis. FYI: Press F11 to launch patient chart. DENNIS
--- NOTE | 2016-12-03 12:07 | CDI ---
Date: 11/26/2016 12:53:00 PM From: Michelle Baker/Magalie Crouch Mortgage Field Inspector Admit Date: 11/12/2016 6:42:00 PM Patient Name: Joseph Sibley Visit Number: [id number] Discharge Date: Dr. Ronnie Reddy, Sepsis was documented in progress notes starting 11/19 and on the discharge summary. History/Risk Factors: Admitted with SBO and peritoneal abscess. Clinical Indicators: In ED, temp 98.3, pulse 81, resp 18, BP 149/89, WBC 19.2 Treatment: IV Zosyn Definition of Present on Admission (POA): A diagnosis present at the time the order for admission to inpatient status was written. For each diagnosis, documentation must be clear to determine if the condition was present at the time of the patients inpatient admission or developed during the hospital stay. Please clarify in progress notes and discharge summary as to whether sepsis was: ? Y = Yes, the condition was present at the time of the order for inpatient admission. ? N = No, the condition was not present at the time of the order for inpatient admission. ? W = Clinically undetermined if the condition was present at the time of the order for inpatient admission. Please continue to document in your progress notes and discharge summary in order to capture severity of illness and risk of mortality. Include clinical findings that support your diagnosis. FYI: Press F11 to launch patient chart. DENNIS
== END 2016-11-24 18:35 | disposition home health service (06) | DRG 853 ==
LOC: EDBD → EC 15:24 → 4MS4W 18:42 → 6ICU 11-14 18:13 → 3SUR 11-15 21:32
PROVIDERS: ADMIT Internal Medicine; ATTEND Internal Medicine
PROC: 0DB80ZZ Excision of Small Intestine, Open Approach (ICD-10-PCS; principal; 2016-11-14 13:30)
PROC: 0DNB4ZZ Release Ileum, Percutaneous Endoscopic Approach (ICD-10-PCS; principal; 2016-11-14 13:30)
PROC: 0DNE0ZZ Release Large Intestine, Open Approach (ICD-10-PCS; principal; 2016-11-14 13:30)
PROC: 0DN80ZZ Release Small Intestine, Open Approach (ICD-10-PCS; principal; 2016-11-14 13:30)
PROC: 0W9G0ZZ Drainage of Peritoneal Cavity, Open Approach (ICD-10-PCS; principal; 2016-11-14 13:30)
PROC: 0DNB0ZZ Release Ileum, Open Approach (ICD-10-PCS; principal; 2016-11-14 13:30)
PROC: 0DN90ZZ Release Duodenum, Open Approach (ICD-10-PCS; principal; 2016-11-14 13:30)
PROC: 0DBB0ZZ Excision of Ileum, Open Approach (ICD-10-PCS; principal; 2016-11-14 13:30)
PROC: 0DN84ZZ Release Small Intestine, Percutaneous Endoscopic Approach (ICD-10-PCS; principal; 2016-11-14 13:30)
PROC: 02HV33Z Insertion of Infusion Device into Superior Vena Cava, Percutaneous Approach (ICD-10-PCS; 2016-11-17 13:55)
PROC: B548ZZA Ultrasonography of Superior Vena Cava, Guidance (ICD-10-PCS; 2016-11-17 13:55)
PROC: B5181ZA Fluoroscopy of Superior Vena Cava using Low Osmolar Contrast, Guidance (ICD-10-PCS; 2016-11-17 13:55)
DX: A41.9 Sepsis, unspecified organism (principal); K65.1 Peritoneal abscess; J95.821 Acute postprocedural respiratory failure; N17.9 Acute kidney failure, unspecified; K56.60 Unspecified intestinal obstruction; K66.0 Peritoneal adhesions (postprocedural) (postinfection); E83.42 Hypomagnesemia; E83.51 Hypocalcemia; F17.200 Nicotine dependence, unspecified, uncomplicated; F41.9 Anxiety disorder, unspecified; I10 Essential (primary) hypertension; K21.9 Gastro-esophageal reflux disease without esophagitis; K52.9 Noninfective gastroenteritis and colitis, unspecified; K58.9 Irritable bowel syndrome, unspecified; Z53.31 Laparoscopic surgical procedure converted to open procedure; Z79.899 Other long term (current) drug therapy; Z90.49 Acquired absence of other specified parts of digestive tract; F32.9 Major depressive disorder, single episode, unspecified
CPT/HCPCS: 36415; 36569; 74177; 76937; 77001; 80048; 80051; 80053; 81001; 82040; 82150; 82272; 82330; 83036; 83690; 83735; 84100; 84478; 85025; 85610; 85730; 86850; 86900; 86901; 87070; 87075; 87077; 87186; 87205; 88307; 93005; 96365; 96372; 96375; 99285

== ENCOUNTER → 2017-01-13 | Outpatient (CLI) | payer OTHER, MEDICARE ==
[2017-01-13 10:44] LABS: Basophils # (A) 0.1 k/uL (0-0.2); Basophils % (A) 1 %; CH 29.4; Eosinophils # (A) 0.4 k/uL (0-0.7); Eosinophils % (A) 4 %; HCT 43.7 % (39.0-53.0); HDW 2.67; Luc # (Auto) 0.16; Luc % (Auto) 1; Lymphocytes # (A) 3.5 k/uL (1.0-4.8); Lymphocytes % (A) 31 %; MCH 29.3 pg (25.0-35.0); MCHC 31.8 g/dL (31.0-37.0); MCV 92.1 fL (80.0-100.0); Mean Platelet Volume 7.1; Monocytes # (A) 0.6 k/uL (0-1.0); Monocytes % (A) 5 %; Neutrophils # (A) 6.6 k/uL (1.3-7.7); Neutrophils % (A) 59 %; RBC 4.75 m/uL (4.30-5.90); RDW 14.3 % (11.5-15.5); WBC 11.3 k/uL (3.8-10.6); WBC (Perox) 10.96
[2017-01-13 10:52] LABS: HGB 13.9 gm/dL (13.0-17.5)
[2017-01-13 12:08] LABS: ALT 35 U/L (21-72); AST 27 U/L (17-59); Alkaline Phosphatase 49 U/L (38-126); Anion Gap 15 mmol/L; Blood Urea Nitrogen 18 mg/dL (9-20); C Reactive Protein <5.0 mg/L (<10.0); Calcium 7.3 mg/dL (8.4-10.2); Carbon Dioxide 19 mmol/L (22-30); Chloride 112 mmol/L (98-107); Glucose 101 mg/dL (74-99); Non-African American GFR(MDRD) 38 (>60 ml/min/1.73 sqM); Potassium 4.3 mmol/L (3.5-5.1); Sodium 146 mmol/L (137-145); Total Bilirubin 0.4 mg/dL (0.2-1.3); Total Protein 6.9 g/dL (6.3-8.2)
[2017-01-13 12:35] LABS: Vitamin B12 243 pg/mL
[2017-01-13 12:53] LABS: Erythrocyte Sedimentation Rate 9 mm/hr (0-15)
== END | disposition home or self-care (01) ==
LOC: LABWHC1 09:43
DX: K50.00 Crohn's disease of small intestine without complications (principal)
CPT/HCPCS: 36415; 80053; 82306; 82607; 85025; 85652; 86140

== ENCOUNTER 2017-09-20 07:05 | Emergency (ER) | payer MEDICARE, OTHER ==
[2017-09-20 07:13] VITALS: RESP 16
[2017-09-20 07:43] LABS: Appearance,Urine Turbid (Clear); Bacteria,Urine Rare /hpf; Bilirubin,Urine Negative (Negative); Blood,Urine Large (Negative); Budding Yeast,Urine Many /hpf; Color,Urine Red; Glucose,Urine (UA) Trace (Negative); Ketones,Urine Negative (Negative); Leukocyte Esterase,Urine Negative (Negative); Nitrite,Urine Negative (Negative); PH, Urine 6.5 (5.0-8.0); Protein,Urine 3+ (Negative); RBC,Urine >182 /hpf (0-5); Urobilinogen,Urine <2.0 mg/dL (<2.0); WBC,Urine 90 /hpf (0-5)
[2017-09-20] MEDS ORDERED: cefTRIAXone 1,000 MG VIAL (IM USE) IM STA (08:26)
--- NOTE | 2017-09-20 08:30 | ED ---
General Adult HPI - General Chief complaint: Urogenital Stated complaint: Male Time Seen by Provider: 09/20/17 08:11 Source: patient, RN notes reviewed Mode of arrival: ambulatory Limitations: no limitations - History of Present Illness Initial comments: 67-year-old male who presents emergency room today with chief complaint of dysuria times one week. He does admit that over the past week she's noticed some symptoms of burning on urination. He states he has some discomfort in between voiding. Patient states symptoms seem to be increasing. Patient denies any known history of prostate problems. He denies any history of kidney stones. He denies any other complaints. Patient denies any recent shortness of breath, chest pain, abdominal pain, nausea or vomiting, numbness or tingling, constipation or diarrhea, headaches or visual changes, or any other complaints. - Related Data Home Medications Medication Instructions Recorded Confirmed Atenolol [Tenormin] 50 mg PO DAILY 11/12/16 11/12/16 Multivitamins, Thera [Multivitamin 1 tab PO DAILY 11/12/16 11/12/16 (formulary)] Omeprazole 20 mg PO DAILY 11/12/16 11/12/16 busPIRone HCL 10 mg PO QID 11/12/16 11/12/16 Previous Rx's Medication Instructions Recorded Amoxicillin/Potassium Clav 1 tab PO Q12HR 10 Days tab 11/24/16 [Augmentin 875-125 Tablet] HYDROcodone/APAP 5-325MG [[place] 1 tab PO Q6HR PRN #20 tab 11/24/16 5-325] Ciprofloxacin HCl [Cipro] 500 mg PO Q12HR #20 day 09/20/17 Phenazopyridine [Pyridium] 100 mg PO TID 3 Days day 09/20/17 Allergies Allergy/AdvReac Type Severity Reaction Status Date / Time No Known Allergies Allergy Verified 09/20/17 07:13 Review of Systems ROS Statement: Those systems with pertinent positive or pertinent negative responses have been documented in the HPI. ROS Other: All systems not noted in ROS Statement are negative. Past Medical History Past Medical History: GERD/Reflux, Hypertension Additional Past Medical History / Comment(s): IBS, "HERNIATED DICS LOWER BACK" History of Any Multi-Drug Resistant Organisms: None Reported Past Surgical History: Appendectomy, Bowel Resection, Tubal Ligation Additional Past Surgical History / Comment(s): "35 YEARS AGO HAD BOWEL SX- REMOVED A FOOT OF INTESTINE D/T LOW GRADE INFECTION" Past Anesthesia/Blood Transfusion Reactions: No Reported Reaction Past Psychological History: Anxiety Smoking Status: Current every day smoker Past Alcohol Use History: Heavy Past Drug Use History: None Reported - Past Family History Mother Family Medical History: Diabetes Mellitus General Exam - General Exam Comments Initial Comments: General: The patient is awake and alert, in no distress, and does not appear acutely ill. Eye: Pupils are equal, round and reactive to light, extra-ocular movements are intact. No nystagmus. There is normal conjunctiva bilaterally. No signs of icterus. Ears, nose, mouth and throat: There are moist mucous membranes and no oral lesions. Neck: The neck is supple, there is no tenderness or JVD. Cardiovascular: There is a regular rate and rhythm. No murmur, rub or gallop is appreciated. Respiratory: Lungs are clear to auscultation, respirations are non-labored, breath sounds are equal. No wheezes, stridor, rales, or rhonchi. Gastrointestinal: Soft, non-distended, non-tender abdomen without masses or organomegaly noted. There is no rebound or guarding present. No CVA tenderness. Musculoskeletal: Normal ROM, no tenderness. Strength 5/5. Sensation intact. Pulses equal bilaterally 2+. Neurological: A&O x 3. CN II-XII intact, There are no obvious motor or sensory deficits. Coordination appears grossly intact. Speech is normal. Skin: Skin is warm and dry and no rashes or lesions are noted. Psychiatric: Cooperative, appropriate mood & affect, normal judgment. Limitations: no limitations Course Vital Signs 09/20/17 07:12 Temperature 97 F L Pulse Rate 85 Respiratory 16 Rate Blood Pressure 131/79 O2 Sat by Pulse 98 Oximetry Medical Decision Making - Medical Decision Making Patient's urinalysis reviewed and does show evidence for infection. Patient's vitals are stable located. No back pain. Admits to dysuria. He is relatively comfortable at bedside. Patient will be treated with antibiotics. Will given dose of Rocephin here in emergency room discharged home on Cipro and Pyridium for his symptoms. He is advised follow-up with the family physician this later in this week to have a repeat urinalysis. Advised return if there is any fever , increase or worsening symptoms. States understanding and is in agreement. - Lab Data Lab Results 09/20/17 Range/Units 07:11 Urine Color Red Urine Appearance Turbid (Clear) Urine pH 6.5 (5.0-8.0) Ur Specific [place] 1.020 (1.001-1.035) Urine Protein 3+ H (Negative) Urine Glucose (UA) Trace H (Negative) Urine Ketones Negative (Negative) Urine Blood Large H (Negative) Urine Nitrite Negative (Negative) Urine Bilirubin Negative (Negative) Urine Urobilinogen <2.0 (<2.0) mg/dL Ur Leukocyte Esterase Negative (Negative) Urine RBC >182 H (0-5) /hpf Urine WBC 90 H (0-5) /hpf Urine Bacteria Rare H (None) /hpf Urine Yeast (Budding) Many H (None) /hpf Disposition Clinical Impression: UTI (urinary tract infection) Disposition: HOME SELF-CARE Condition: Good Instructions: Urinary Tract Infection in Men (ED) Additional Instructions: Please use medication as discussed. Please follow-up with family doctor in the next 2 days. Please return to emergency room if the symptoms increase or worsen or for any other concerns. Prescriptions: Ciprofloxacin HCl [Cipro] 500 mg PO Q12HR #20 day Phenazopyridine [Pyridium] 100 mg PO TID 3 Days day Referrals: None,Stated [Primary Care Provider] - 1-2 days Time of Disposition: 08:29
[2017-09-20 08:46] VITALS: BP 138/78; PULSE 78; TEMP 97.8
== END 2017-09-20 08:45 | disposition home or self-care (01) ==
LOC: EC 07:05
DX: N39.0 Urinary tract infection, site not specified (principal); F41.9 Anxiety disorder, unspecified; K21.9 Gastro-esophageal reflux disease without esophagitis; I10 Essential (primary) hypertension; K58.9 Irritable bowel syndrome, unspecified; F17.200 Nicotine dependence, unspecified, uncomplicated; Z79.899 Other long term (current) drug therapy
CPT/HCPCS: 81001; 87086; 99283; 96372; J0696

== ENCOUNTER 2017-09-28 17:38 | Emergency (ER) | payer SELFPAY ==
--- NOTE | 2017-09-28 19:00 | ED ---
Male Urogenital HPI - General Chief complaint: Urogenital Stated complaint: POSS UTI/PAIN Time Seen by Provider: 09/28/17 18:37 Source: patient, RN notes reviewed Mode of arrival: ambulatory Limitations: no limitations - History of Present Illness Initial comments: 67-year-old male presents emergency Department with chief complaint of dysuria. Patient states she was seen here a few weeks ago for some her symptoms was diagnosed with UTI. States she was placed on antibiotics and symptoms resolved shortly after. Patient states that he started having pain again this morning after he ejaculated. Patient states that he's never had any issues like this in the past prior to the last few weeks. He denies any abdominal pain, flank pain. Denies any fevers or chills. - Related Data Home Medications Medication Instructions Recorded Confirmed Atenolol [Tenormin] 50 mg PO DAILY 11/12/16 09/28/17 Omeprazole 20 mg PO DAILY 11/12/16 09/28/17 Diphenoxylate HCl/Atropine 1 tab PO QID PRN 09/28/17 09/28/17 [Lomotil 2.5-0.025 mg Tablet] Polyethylene Glycol 3350 [Miralax] 17 gm PO DAILY 09/28/17 09/28/17 Previous Rx's Medication Instructions Recorded Phenazopyridine [Pyridium] 200 mg PO TID #6 tablet 09/28/17 Allergies Allergy/AdvReac Type Severity Reaction Status Date / Time No Known Allergies Allergy Verified 09/28/17 18:49 Review of Systems ROS Statement: Those systems with pertinent positive or pertinent negative responses have been documented in the HPI. ROS Other: All systems not noted in ROS Statement are negative. Past Medical History Past Medical History: GERD/Reflux, Hypertension Additional Past Medical History / Comment(s): IBS, "HERNIATED DICS LOWER BACK" History of Any Multi-Drug Resistant Organisms: None Reported Past Surgical History: Appendectomy, Bowel Resection, Tubal Ligation Additional Past Surgical History / Comment(s): "35 YEARS AGO HAD BOWEL SX- REMOVED A FOOT OF INTESTINE D/T LOW GRADE INFECTION" Past Anesthesia/Blood Transfusion Reactions: No Reported Reaction Past Psychological History: Anxiety Smoking Status: Current every day smoker Past Alcohol Use History: Heavy Past Drug Use History: None Reported - Past Family History Mother Family Medical History: Diabetes Mellitus General Exam Limitations: no limitations General appearance: alert, in no apparent distress Respiratory exam: Present: normal lung sounds bilaterally. Absent: respiratory distress, wheezes, rales, rhonchi, stridor Cardiovascular Exam: Present: regular rate, normal rhythm, normal heart sounds. Absent: systolic murmur, diastolic murmur, rubs, gallop, clicks GI/Abdominal exam: Present: soft, normal bowel sounds. Absent: distended, tenderness, guarding, rebound, rigid Back exam: Absent: CVA tenderness (R), CVA tenderness (L) Course Vital Signs 09/28/17 09/28/17 17:49 19:09 Temperature 97.2 F L 97.7 F Pulse Rate 87 80 Respiratory 17 18 Rate Blood Pressure 150/86 164/90 O2 Sat by Pulse 100 97 Oximetry Medical Decision Making - Medical Decision Making 67-year-old male present emergency department for concern UTI. Urinalysis does not have any evidence of urinary tract infection at this time. Patient will be treated for his dysuria with Pyridium. We did discuss increase fluids. Patient will follow-up was primary care physician, urologist if needed. - Lab Data Lab Results 09/28/17 Range/Units 18:52 Urine Color Yellow Urine Appearance Clear (Clear) Urine pH 6.0 (5.0-8.0) Ur Specific [place] 1.022 (1.001-1.035) Urine Protein 1+ H (Negative) Urine Glucose (UA) Negative (Negative) Urine Ketones Negative (Negative) Urine Blood Negative (Negative) Urine Nitrite Negative (Negative) Urine Bilirubin Negative (Negative) Urine Urobilinogen 2.0 (<2.0) mg/dL Ur Leukocyte Esterase Negative (Negative) Urine RBC 3 (0-5) /hpf Urine WBC 1 (0-5) /hpf Hyaline Casts 4 H (0-2) /lpf Urine Mucus Rare H (None) /hpf Disposition Clinical Impression: Dysuria Disposition: HOME SELF-CARE Condition: Stable Instructions: Dysuria (ED) Additional Instructions: Please return to the Emergency Department if symptoms worsen or any other concerns. Prescriptions: Phenazopyridine [Pyridium] 200 mg PO TID #6 tablet Referrals: [facility],Clinic [Primary Care Provider] - 1-2 days Time of Disposition: 19:35
[2017-09-28 19:12] LABS: Appearance,Urine Clear (Clear); Bilirubin,Urine Negative (Negative); Blood,Urine Negative (Negative); Color,Urine Yellow; Glucose,Urine (UA) Negative (Negative); Hyaline Casts,Urine 4 /lpf (0-2); Ketones,Urine Negative (Negative); Leukocyte Esterase,Urine Negative (Negative); Mucus,Urine Rare /hpf; Nitrite,Urine Negative (Negative); Protein,Urine 1+ (Negative); RBC,Urine 3 /hpf (0-5); Specific Gravity,Urine 1.022 (1.001-1.035); WBC,Urine 1 /hpf (0-5)
[2017-09-28 20:36] VITALS: BP 142/90; PULSE 79; RESP 16; TEMP 98.6
== END 2017-09-28 20:36 | disposition home or self-care (01) ==
LOC: EC 17:38
DX: R30.0 Dysuria (principal); I10 Essential (primary) hypertension; K21.9 Gastro-esophageal reflux disease without esophagitis; K58.9 Irritable bowel syndrome, unspecified; F17.200 Nicotine dependence, unspecified, uncomplicated; Z90.49 Acquired absence of other specified parts of digestive tract; Z79.899 Other long term (current) drug therapy
CPT/HCPCS: 81001; 87086; 99283

== ENCOUNTER 2021-05-06 10:40 | Emergency (ER) | payer OTHER ==
[2021-05-06 10:58] VITALS: RESP 18; TEMP 98.6
--- NOTE | 2021-05-06 11:42 | ED ---
General Adult HPI - General Chief complaint: Recheck/Abnormal Lab/Rx Stated complaint: Abn Labs, Kidney function Time Seen by Provider: 05/06/21 10:50 Source: patient, RN notes reviewed, old records reviewed Mode of arrival: ambulatory Limitations: no limitations - History of Present Illness Initial comments: This is a 71-year-old male who presents emergency Department stating that he went in for his annual checkup they told him his potassium as well as magnesium was low so they sent to the emergency department. Patient states he also fell 3 weeks: Hurt the right side of his ribs he does not want to be evaluated for that because that is gotten much better. Patient states he was a little bit short of breath but that is his normal baseline he is no more short of breath than he normally is. Patient denies any anterior chest pain. Patient has any palpitations per patient denies any recent fever chills or cough per patient denies any abdominal pain patient denies nausea vomiting diarrhea. Patient denies headache patient denies numbness weakness. Patient states he was feeling fine but came in because his primary told to come in to be further evaluated. Patient states overall he has really no complaints and feels good - Related Data Home Medications Medication Instructions Recorded Confirmed Omeprazole 20 mg PO DAILY 11/12/16 05/06/21 Calcium Carbonate 1,000 mg PO BID 05/06/21 05/06/21 Cholecalciferol [Vitamin D3 (25 50 mcg PO DAILY 05/06/21 05/06/21 Mcg = 1000 Iu)] Cholestyramine/Aspartame 4 gm PO TID 05/06/21 05/06/21 [Cholestyramine Light Packet] Cyanocobalamin (Vitamin B-12) 1,000 mcg PO DAILY 05/06/21 05/06/21 [Vitamin B-12] Diphenox-Atrop 2.5-0.025 mg 2 tab PO QID 05/06/21 05/06/21 [Lomotil] Magnesium Ox 420mg 420 mg PO BID 05/06/21 05/06/21 Multivitamins, Thera [Multivitamin 1 tab PO DAILY 05/06/21 05/06/21 (formulary)] atenoloL [Tenormin] 75 mg PO DAILY 05/06/21 05/06/21 Previous Rx's Medication Instructions Recorded Famotidine [Pepcid] 20 mg PO BID #60 tablet 05/06/21 Allergies Allergy/AdvReac Type Severity Reaction Status Date / Time No Known Allergies Allergy Verified 05/06/21 11:54 Review of Systems ROS Statement: Those systems with pertinent positive or pertinent negative responses have been documented in the HPI. ROS Other: All systems not noted in ROS Statement are negative. Past Medical History Past Medical History: GERD/Reflux, Hypertension Additional Past Medical History / Comment(s): IBS, "HERNIATED DICS LOWER BACK" History of Any Multi-Drug Resistant Organisms: None Reported Past Surgical History: Appendectomy, Bowel Resection, Tubal Ligation Additional Past Surgical History / Comment(s): "35 YEARS AGO HAD BOWEL SX- REMOVED A FOOT OF INTESTINE D/T LOW GRADE INFECTION" Past Anesthesia/Blood Transfusion Reactions: No Reported Reaction Past Psychological History: Anxiety Smoking Status: Never smoker Past Alcohol Use History: Heavy Past Drug Use History: None Reported - Past Family History Mother Family Medical History: Diabetes Mellitus General Exam - General Exam Comments Initial Comments: GENERAL: Patient is well-developed and well-nourished. Patient is nontoxic and well-hydrated and is in no acute distress. ENT: Neck is soft and supple. No significant lymphadenopathy is noted. Oropharynx is clear. Moist mucous membranes. Neck has full range of motion without eliciting any pain. EYES: The sclera were anicteric and conjunctiva were pink and moist. Extraocular move ments were intact and pupils were equal round and reactive to light. Eyelids were unremarkable. PULMONARY: Unlabored respirations. Good breath sounds bilaterally. No audible rales rhonchi or wheezing was noted. CARDIOVASCULAR: There is a regular rate and rhythm without any murmurs gallops or rubs. ABDOMEN: Soft and nontender with normal bowel sounds. SKIN: Skin is clear with no lesions or rashes and otherwise unremarkable. NEUROLOGIC: Patient is alert and oriented x3. Cranial nerves II through XII are grossly intact. Motor and sensory are also intact. Normal speech, volume and content. Symmetrical smile. MUSCULOSKELETAL: Normal extremities with adequate strength and full range of motion. No lower extremity swelling or edema. No calf tenderness. LYMPHATICS: No significant lymphadenopathy is noted PSYCHIATRIC: Normal psychiatric evaluation. Limitations: no limitations Course Vital Signs 05/06/21 05/06/21 05/06/21 10:51 12:04 12:51 Temperature 98.6 F Pulse Rate 69 75 Respiratory 18 18 18 Rate Blood Pressure 150/93 168/102 O2 Sat by Pulse 97 94 L Oximetry 05/06/21 13:30 Temperature Pulse Rate 73 Respiratory 18 Rate Blood Pressure 175/115 O2 Sat by Pulse 96 Oximetry Medical Decision Making - Medical Decision Making EKG shows normal sinus rhythm at 64 bpm AL interval 288 QRS is 92 QT interval 32 QTC is 394. Patient's EKG shows no ST segment elevation or depression. Patient's magnesium was low at 0.9. Patient received 2 g of magnesium sulfate. Patient did not want a hospital. Patient remained asymptomatic throughout his ED stay. - Lab Data Result diagrams: 05/06/21 11:57 05/06/21 11:57 Lab Results 05/06/21 05/06/21 Range/Units 11:57 11:57 WBC 11.0 H (3.8-10.6) k/uL RBC 4.62 (4.30-5.90) m/uL Hgb 14.1 (13.0-17.5) gm/dL Hct 42.1 (39.0-53.0) % MCV 91.1 (80.0-100.0) fL MCH 30.5 (25.0-35.0) pg MCHC 33.5 (31.0-37.0) g/dL RDW 13.4 (11.5-15.5) % Plt Count 315 (150-450) k/uL MPV 7.8 Neutrophils % 67 % Lymphocytes % 20 % Monocytes % 8 % Eosinophils % 2 % Basophils % 1 % Neutrophils # 7.4 (1.3-7.7) k/uL Lymphocytes # 2.2 (1.0-4.8) k/uL Monocytes # 0.8 (0-1.0) k/uL Eosinophils # 0.2 (0-0.7) k/uL Basophils # 0.1 (0-0.2) k/uL Sodium 136 L (137-145) mmol/L Potassium 4.6 (3.5-5.1) mmol/L Chloride 104 (98-107) mmol/L Carbon Dioxide 23 (22-30) mmol/L Anion Gap 9 mmol/L BUN 13 (9-20) mg/dL Creatinine 1.41 H (0.66-1.25) mg/dL Est GFR (CKD-EPI)AfAm 57 (>60 ml/min/1.73 sqM) Est GFR (CKD-EPI)NonAf 49 (>60 ml/min/1.73 sqM) Glucose 108 H (74-99) mg/dL Calcium 9.0 (8.4-10.2) mg/dL Magnesium 0.9 L* (1.6-2.3) mg/dL Total Bilirubin 0.7 (0.2-1.3) mg/dL AST 30 (17-59) U/L ALT 27 (4-49) U/L Alkaline Phosphatase 87 (38-126) U/L Total Protein 7.1 (6.3-8.2) g/dL Albumin 4.3 (3.5-5.0) g/dL Disposition Clinical Impression: Hypomagnesemia, Hypertensive urgency Disposition: HOME SELF-CARE Condition: Good Instructions (If sedation given, give patient instructions): Hypomagnesemia (ED) Additional Instructions: Patient should stopp Prilosec and start Pepcid. Patient should take 100 mg of atenolol by mouth daily Patient should follow-up with the primary medical care doctor for recheck on magnesium and take his blood pressure multiple times a day and follow-up for his blood pressure with his primary medical care doctor or cardiology. Prescriptions: Famotidine [Pepcid] 20 mg PO BID #60 tablet Is patient prescribed a controlled substance at d/c from ED?: No Referrals: [facility],Clinic [Primary Care Provider] - 1-2 days Time of Disposition: 13:54
[2021-05-06 12:19] LABS: Basophils # (A) 0.1 k/uL (0-0.2); Basophils % (A) 1 %; Eosinophils # (A) 0.2 k/uL (0-0.7); Eosinophils % (A) 2 %; HCT 42.1 % (39.0-53.0); HGB 14.1 gm/dL (13.0-17.5); Lymphocytes # (A) 2.2 k/uL (1.0-4.8); Lymphocytes % (A) 20 %; MCH 30.5 pg (25.0-35.0); MCHC 33.5 g/dL (31.0-37.0); MCV 91.1 fL (80.0-100.0); Mean Platelet Volume 7.8; Monocytes # (A) 0.8 k/uL (0-1.0); Monocytes % (A) 8 %; Neutrophils # (A) 7.4 k/uL (1.3-7.7); Neutrophils % (A) 67 %; Platelet Count 315 k/uL (150-450); RBC 4.62 m/uL (4.30-5.90); RDW 13.4 % (11.5-15.5)
[2021-05-06 12:41] LABS: Albumin 4.3 g/dL (3.5-5.0); Potassium 4.6 mmol/L (3.5-5.1); Total Bilirubin 0.7 mg/dL (0.2-1.3); Total Protein 7.1 g/dL (6.3-8.2)
[2021-05-06 12:43] LABS: Magnesium 0.9 mg/dL (1.6-2.3)
[2021-05-06] MEDS ORDERED: hydrALAZINE HCL 20 MG/ML 1 ML VIAL IVP STA ×2 (13:31→14:48)
[2021-05-06] MEDS: MAGNESIUM SULFATE-D5W PMX 1 GM in DEXTROSE/WATER 1 100ML.BAG IVPB SCH ×2 (13:44→15:43)
[2021-05-06 17:54] VITALS: BP 148/84; PULSE 81
== END 2021-05-06 18:01 | disposition home or self-care (01) ==
LOC: EC 10:40
DX: I16.0 Hypertensive urgency (principal); E83.42 Hypomagnesemia; I10 Essential (primary) hypertension; K21.9 Gastro-esophageal reflux disease without esophagitis; Z79.899 Other long term (current) drug therapy
CPT/HCPCS: 36415; 93005; 80053; 83735; 85025; 99285; 96365; 96366; 96375; 96376; J0360; J3475

== ENCOUNTER → 2021-07-17 | Outpatient (CLI) | payer OTHER ==
--- NOTE | 2021-07-17 09:59 | US ---
EXAMINATION TYPE: US kidneys/renal and bladder DATE OF EXAM: 07/17/2021 COMPARISON: None CLINICAL HISTORY: N18.9 CHR KIDNEY DIESASE. Abnormal labs. EXAM MEASUREMENTS: Right Kidney: 10.9 x 4.6 x 6.4 cm Left Kidney: 10.6 x 5.0 x 5.9 cm Right Kidney: No hydronephrosis or masses seen Left Kidney: No hydronephrosis or masses seen Bladder: distended, anechoic Bilateral Jets not seen There is no evidence for hydronephrosis at this point in time. No nephrolithiasis is seen. No shayan s are identified. Bladder limited by incomplete distention. IMPRESSION: 1 no acute process.
== END | disposition home or self-care (01) ==
LOC: RADUSWWP 09:30
DX: N18.9 Chronic kidney disease, unspecified (principal)
CPT/HCPCS: 76770

== ENCOUNTER 2021-08-08 15:18 | Inpatient (IN) | payer OTHER, MEDICARE ==
[2021-08-08] MEDS ORDERED: HYDROcodone/APAP 5-325MG 1 EACH TAB PO STA (17:55)
--- NOTE | 2021-08-08 18:06 | ED ---
Skin/Abscess/FB HPI - General Source: patient Mode of arrival: ambulatory Limitations: no limitations <Christine Terrazas - Last Filed: 08/08/21 21:31> <Kathy Chicas - Last Filed: 08/09/21 00:32> - General Chief complaint: Skin/Abscess/Foreign Body Stated complaint: Rash Time Seen by Provider: 08/08/21 17:04 - History of Present Illness Initial comments: 71-year-old male patient presents to the emergency department today for evaluation of rash and left great toe infection. Patient states he started with a rash over his legs and arms about mid June. States that it started as large patches on his medial thighs. States that it varies in intensity. Denies any itching or pain. He reports left great toe pain and discoloration. States it started about 10 days ago and is now turning black. He denies any known injury. He denies use of blood thinning medications. Denies history of liver disease. Denies fever or chills. States the rash started around the time he received his flu vaccine. He is not sure whether it started before or after. States approximately a week after getting the flu shot he became ill with upper respiratory symptoms, cough, fever, and severe diarrhea. He is improved from that illness. He denies any black or bloody stools. Denies hematuria. (Christine Terrazas) - Related Data Home Medications Medication Instructions Recorded Confirmed Omeprazole 20 mg PO DAILY 11/12/16 08/08/21 Calcium Carbonate 500 mg PO QID 05/06/21 08/08/21 Cholecalciferol [Vitamin D3 (25 50 mcg PO BID 05/06/21 08/08/21 Mcg = 1000 Iu)] Cholestyramine/Aspartame 4 gm PO TID 05/06/21 08/08/21 [Cholestyramine Light Packet] Cyanocobalamin (Vitamin B-12) 1,000 mcg PO DAILY 05/06/21 08/08/21 [Vitamin B-12] Diphenox-Atrop 2.5-0.025 mg 3 tab PO TID 05/06/21 08/08/21 [Lomotil] Magnesium Ox 420mg 420 mg PO BID 05/06/21 08/08/21 Multivitamins, Thera [Multivitamin 1 tab PO DAILY 05/06/21 08/08/21 (formulary)] atenoloL [Tenormin] 50 mg PO DAILY 05/06/21 08/08/21 Allergies Allergy/AdvReac Type Severity Reaction Status Date / Time No Known Allergies Allergy Verified 08/08/21 20:50 Review of Systems ROS Other: All systems not noted in ROS Statement are negative. <NiniChristine M - Last Filed: 08/08/21 21:31> ROS Other: All systems not noted in ROS Statement are negative. <Kathy Chicas - Last Filed: 08/09/21 00:32> ROS Statement: Those systems with pertinent positive or pertinent negative responses have been documented in the HPI. Past Medical History Past Medical History: GERD/Reflux, Hypertension Additional Past Medical History / Comment(s): IBS, "HERNIATED DICS LOWER BACK" History of Any Multi-Drug Resistant Organisms: None Reported Past Surgical History: Appendectomy, Bowel Resection, Tubal Ligation Additional Past Surgical History / Comment(s): "35 YEARS AGO HAD BOWEL SX- REMOVED A FOOT OF INTESTINE D/T LOW GRADE INFECTION" Past Anesthesia/Blood Transfusion Reactions: No Reported Reaction Past Psychological History: Anxiety Smoking Status: Never smoker Past Alcohol Use History: Occasional Past Drug Use History: None Reported - Past Family History Mother Family Medical History: Diabetes Mellitus <Christine Terrazas Coni - Last Filed: 08/08/21 21:31> General Exam Limitations: no limitations General appearance: alert, in no apparent distress, other (This is a well- developed, well-nourished adult male in no acute distress.) ENT exam: Present: normal exam, normal oropharynx, mucous membranes moist Respiratory exam: Present: normal lung sounds bilaterally. Absent: respiratory distress, wheezes, rales, rhonchi, stridor Cardiovascular Exam: Present: regular rate, normal rhythm, normal heart sounds. Absent: systolic murmur, diastolic murmur, rubs, gallop, clicks GI/Abdominal exam: Present: soft, normal bowel sounds. Absent: distended, tenderness, guarding, rebound, rigid Extremities exam: Present: full ROM, normal capillary refill, other (Circumferential left great toe necrosis, black discoloration, erythema, tenderness. Pedial and post tibial pulses 2+ and easily palpable. ). Absent: normal inspection, tenderness, pedal edema, joint swelling, calf tenderness Neurological exam: Present: alert, oriented X3, CN II-XII intact Psychiatric exam: Present: normal affect, normal mood Skin exam: Present: warm, dry, intact, normal color, rash (Petechial rash noted to the bilateral arms and legs. Non-blanchable. Skin is warm and dry. ) <Christine Terrazas - Last Filed: 08/08/21 21:31> Course Vital Signs 08/08/21 08/08/21 15:48 23:52 Temperature 97.6 F 98.7 F Pulse Rate 74 80 Respiratory 18 16 Rate Blood Pressure 129/85 169/99 O2 Sat by Pulse 99 98 Oximetry Medical Decision Making - Lab Data Result diagrams: 08/08/21 18:21 08/08/21 18:21 - Radiology Data Radiology results: report reviewed, image reviewed <Christine Terrazas - Last Filed: 08/08/21 21:31> - Lab Data Result diagrams: 08/08/21 18:21 08/08/21 18:21 <Kathy Chicas - Last Filed: 08/09/21 00:32> - Medical Decision Making 71-year-old male patient presented to the emergency department today for evaluation of a rash over his arms and legs and possible infection to the left great toe. Physical examination did reveal a petechial rash noted over the lower and upper extremities. There is evidence for ischemia to the left great toe. Pedal and posttibial pulses are 2+ and easily palpable. Skin the lower extremities is pink, warm, dry. He is afebrile. Labs reviewed and did reveal white blood cell count 11.6, ESR is 20, creatinine 1.93. Urinalysis showed 3+ protein with moderate blood. He is started on vancomycin. We'll admit to the hospital perform echo in the morning. Consult vascular and infectious disease. My attending is Dr. Chicas. (Christine Terrazas) I was available for consultation in the emergency department. The history and physical exam were done by the midlevel provider. I was consulted for this patients care. I reviewed the case with the midlevel provider and based on their presentation of the patient, I agree with the assessment, medical decision making and plan of care as documented. (Kathy Chicas) - Lab Data Lab Results 08/08/21 08/08/2122 Range/Units 18:21 18:21 18:21 WBC 11.6 H (3.8-10.6) k/uL RBC 4.44 (4.30-5.90) m/uL Hgb 12.9 L (13.0-17.5) gm/dL Hct 42.0 (39.0-53.0) % MCV 94.5 (80.0-100.0) fL MCH 29.1 (25.0-35.0) pg MCHC 30.8 L (31.0-37.0) g/dL RDW 14.0 (11.5-15.5) % Plt Count 335 (150-450) k/uL MPV 7.2 Neutrophils % 65 % Lymphocytes % 23 % Monocytes % 5 % Eosinophils % 4 % Basophils % 1 % Neutrophils # 7.6 (1.3-7.7) k/uL Lymphocytes # 2.7 (1.0-4.8) k/uL Monocytes # 0.6 (0-1.0) k/uL Eosinophils # 0.4 (0-0.7) k/uL Basophils # 0.1 (0-0.2) k/uL Hypochromasia Slight ESR 20 H (0-15) mm/hr PT 11.4 (9.0-12.0) sec INR 1.1 (<1.2) APTT 25.3 (22.0-30.0) sec Sodium 139 (137-145) mmol/L Potassium 4.0 (3.5-5.1) mmol/L Chloride 111 H (98-107) mmol/L Carbon Dioxide 17 L (22-30) mmol/L Anion Gap 11 mmol/L BUN 20 (9-20) mg/dL Creatinine 1.93 H (0.66-1.25) mg/dL Est GFR (CKD-EPI)AfAm 39 (>60 ml/min/1.73 sqM) Est GFR (CKD-EPI)NonAf 34 (>60 ml/min/1.73 sqM) Glucose 133 H (74-99) mg/dL Plasma Lactic Acid Elmer (0.7-2.0) mmol/L Calcium 6.6 L (8.4-10.2) mg/dL Total Bilirubin 0.6 (0.2-1.3) mg/dL AST 25 (17-59) U/L ALT 13 (4-49) U/L Alkaline Phosphatase 47 (38-126) U/L C-Reactive Protein <0.5 (<1.0) mg/dL Total Protein 6.9 (6.3-8.2) g/dL Albumin 3.9 (3.5-5.0) g/dL Urine Color Urine Appearance (Clear) Urine pH (5.0-8.0) Ur Specific [place] (1.001-1.035) Urine Protein (Negative) Urine Glucose (UA) (Negative) Urine Ketones (Negative) Urine Blood (Negative) Urine Nitrite (Negative) Urine Bilirubin (Negative) Urine Urobilinogen (<2.0) mg/dL Ur Leukocyte Esterase (Negative) Urine RBC (0-5) /hpf Urine WBC (0-5) /hpf Urine Bacteria (None) /hpf Hyaline Casts (0-2) /lpf Urine Mucus (None) /hpf 08/08/21 08/08/21 Range/Units 18:21 19:44 WBC (3.8-10.6) k/uL RBC (4.30-5.90) m/uL Hgb (13.0-17.5) gm/dL Hct (39.0-53.0) % MCV (80.0-100.0) fL MCH (25.0-35.0) pg MCHC (31.0-37.0) g/dL RDW (11.5-15.5) % Plt Count (150-450) k/uL MPV Neutrophils % % Lymphocytes % % Monocytes % % Eosinophils % % Basophils % % Neutrophils # (1.3-7.7) k/uL Lymphocytes # (1.0-4.8) k/uL Monocytes # (0-1.0) k/uL Eosinophils # (0-0.7) k/uL Basophils # (0-0.2) k/uL Hypochromasia ESR (0-15) mm/hr PT (9.0-12.0) sec INR (<1.2) APTT (22.0-30.0) sec Sodium (137-145) mmol/L Potassium (3.5-5.1) mmol/L Chloride (98-107) mmol/L Carbon Dioxide (22-30) mmol/L Anion Gap mmol/L BUN (9-20) mg/dL Creatinine (0.66-1.25) mg/dL Est GFR (CKD-EPI)AfAm (>60 ml/min/1.73 sqM) Est GFR (CKD-EPI)NonAf (>60 ml/min/1.73 sqM) Glucose (74-99) mg/dL Plasma Lactic Acid Elemr 1.2 (0.7-2.0) mmol/L Calcium (8.4-10.2) mg/dL Total Bilirubin (0.2-1.3) mg/dL AST (17-59) U/L ALT (4-49) U/L Alkaline Phosphatase (38-126) U/L C-Reactive Protein (<1.0) mg/dL Total Protein (6.3-8.2) g/dL Albumin (3.5-5.0) g/dL Urine Color Yellow Urine Appearance Clear (Clear) Urine pH 6.0 (5.0-8.0) Ur Specific [place] 1.020 (1.001-1.035) Urine Protein 3+ H (Negative) Urine Glucose (UA) Negative (Negative) Urine Ketones Negative (Negative) Urine Blood Moderate H (Negative) Urine Nitrite Negative (Negative) Urine Bilirubin Negative (Negative) Urine Urobilinogen <2.0 (<2.0) mg/dL Ur Leukocyte Esterase Negative (Negative) Urine RBC 20 H (0-5) /hpf Urine WBC 3 (0-5) /hpf Urine Bacteria Rare H (None) /hpf Hyaline Casts 5 H (0-2) /lpf Urine Mucus Rare H (None) /hpf - Radiology Data 3 views of the left great toe were obtained. Report was reviewed in its entirety. Impression by Dr. Estrada shows no acute osseous abnormality. (Christine Terrazas) Disposition Decision to Admit Reason: Admit from EC Decision Date: 08/08/21 Decision Time: 20:48 <Christine Terrazas - Last Filed: 08/08/21 21:31> <Kathy Chicas - Last Filed: 08/09/21 00:32> Clinical Impression: Vasculitis, Gangrene of toe of left foot, Hypocalcemia Disposition: ADMITTED IP TO THIS [facility] Condition: Serious
[2021-08-08 18:37] LABS: Basophils # (A) 0.1 k/uL (0-0.2); Basophils % (A) 1 %; Eosinophils # (A) 0.4 k/uL (0-0.7); Eosinophils % (A) 4 %; HGB 12.9 gm/dL (13.0-17.5); Hypochromasia Slight; Lymphocytes # (A) 2.7 k/uL (1.0-4.8); Lymphocytes % (A) 23 %; MCH 29.1 pg (25.0-35.0); MCHC 30.8 g/dL (31.0-37.0); MCV 94.5 fL (80.0-100.0); Mean Platelet Volume 7.2; Monocytes # (A) 0.6 k/uL (0-1.0); Monocytes % (A) 5 %; Neutrophils # (A) 7.6 k/uL (1.3-7.7); Neutrophils % (A) 65 %; Platelet Count 335 k/uL (150-450); RBC 4.44 m/uL (4.30-5.90); WBC 11.6 k/uL (3.8-10.6)
[2021-08-08 18:50] LABS: INR 1.1 (<1.2); Partial Thromboplastin Time 25.3 sec (22.0-30.0); Prothrombin Time 11.4 sec (9.0-12.0)
[2021-08-08 19:13] LABS: ALT 13 U/L (4-49); AST 25 U/L (17-59); African American GFR (CKD) 39 (>60 ml/min/1.73 sqM); Albumin 3.9 g/dL (3.5-5.0); Alkaline Phosphatase 47 U/L (38-126); Anion Gap 11 mmol/L; Blood Urea Nitrogen 20 mg/dL (9-20); C Reactive Protein <0.5 mg/dL (<1.0); Calcium 6.6 mg/dL (8.4-10.2); Carbon Dioxide 17 mmol/L (22-30); Chloride 111 mmol/L (98-107); Glucose 133 mg/dL (74-99); Non-African American GFR(CKD) 34 (>60 ml/min/1.73 sqM); Sodium 139 mmol/L (137-145); Total Bilirubin 0.6 mg/dL (0.2-1.3); Total Protein 6.9 g/dL (6.3-8.2)
--- NOTE | 2021-08-08 19:15 | XR ---
RESULT: HISTORY: Black toe/toe pain TECHNIQUE: 3 views of the left toes were obtained. COMPARISON: None. FINDINGS: There is no acute fracture or dislocation. The visualized joint spaces are grossly preserved. Biparti te great toe sesamoid bone seen. IMPRESSION: No acute osseous abnormality.
[2021-08-08 19:24] LABS: Erythrocyte Sedimentation Rate 20 mm/hr (0-15)
[2021-08-08 19:55] LABS: Appearance,Urine Clear (Clear); Bacteria,Urine Rare /hpf; Bilirubin,Urine Negative (Negative); Blood,Urine Moderate (Negative); Color,Urine Yellow; Glucose,Urine (UA) Negative (Negative); Hyaline Casts,Urine 5 /lpf (0-2); Ketones,Urine Negative (Negative); Leukocyte Esterase,Urine Negative (Negative); Mucus,Urine Rare /hpf; Nitrite,Urine Negative (Negative); Protein,Urine 3+ (Negative); RBC,Urine 20 /hpf (0-5); Urobilinogen,Urine <2.0 mg/dL (<2.0); WBC,Urine 3 /hpf (0-5)
[2021-08-08] MEDS ORDERED: NALOXONE 0.4 MG/ML 1 ML VIAL IV PRN (20:39)
[2021-08-08] MEDS ORDERED: MORPHINE SULFATE 4 MG/ML SYRINGE IV PRN (20:39)
[2021-08-08] MEDS ORDERED: ONDANSETRON 4 MG/2 ML VIAL IVP PRN (20:39)
[2021-08-08] MEDS ORDERED: VANCOMYCIN IV PER PHARMACY 1 EACH MISC MISCELLANE PRN (20:47)
[2021-08-08] MEDS ORDERED: VANCOMYCIN 1,500 MG in SODIUM CHLORIDE 0.9% 250 ML IVPB STA (20:54)
[2021-08-08] MEDS: CALCIUM CARBONATE 500 MG CHEWABLE PO SCH (23:26)
[2021-08-09] MEDS: HYDROmorphone 1 MG/ML 1 ML SYRINGE IVP PRN ×3 (00:01→11:09)
[2021-08-09] MEDS: CALCIUM CARBONATE 500 MG CHEWABLE PO SCH ×7 (09:38→21:00)
[2021-08-09] MEDS: CHOLECALCIFEROL 25 MCG (1000 IU) TABLET PO SCH (09:40)
--- NOTE | 2021-08-09 13:52 | ECHOF ---
Referral Reason:Petechial rash MEASUREMENTS -------- HEIGHT: 182.9 cm WEIGHT: 98.9 kg BP: RVIDd: 3.3 cm (< 3.3) IVSd: 1.2 cm (0.6 - 1.1) LVIDd: 3.7 cm (3.9 - 5.3) LVPWd: 1.1 cm (0.6 - 1.1) IVSs: 1.5 cm LVIDs: 2.1 cm LVPWs: 1.9 cm LAESV Index (A-L): 21.98 ml/m Ao Diam: 3.2 cm (2.0 - 3.7) AV Cusp: 2.2 cm (1.5 - 2.6) MV EXCURSION: 22.213 mm (> 18.000) MV EF SLOPE: 138 mm/s (70 - 150) EPSS: 0.7 cm MV E Shiva: 0.39 m/s MV DecT: 347 ms MV A Shiva: 0.80 m/s MV E/A Ratio: 0.49 RAP: 5.00 mmHg RVSP: 34.95 mmHg FINDINGS -------- Sinus rhythm. This was a technically adequate study. LV size, wall thickness and systolic function are normal, with an EF greater than 55%. The left kaleb tricular size is normal. The right ventricle is normal in size. Normal LA size by volume 22+/-6 ml/m2. The right atrial size is normal. Trace amount of aortic regurgitation. Mild mitral regurgitation is present. Mild tricuspid regurgitation present. Right ventricular systolic pressure is normal at < 35 mmHg. There is no pulmonic regurgitation present. The aortic root size is normal. There is no pericardial effusion. CONCLUSIONS -------- 1. LV size, wall thickness and systolic function are normal, with an EF greater than 55%. 2. The left ventricular size is normal. 3. The right ventricle is normal in size. 4. Normal LA size by volume 22+/-6 ml/m2. 5. The right atrial size is normal. 6. Trace amount of aortic regurgitation. 7. Mild mitral regurgitation is present. 8. Mild tricuspid regurgitation present. 9. There is no pulmonic regurgitation present. 10. The aortic root size is normal. 11. There is no pericardial effusion. LIVESTOCK AGENT: Althea Messer RDCS
[2021-08-09] MEDS ORDERED: VANCOMYCIN 1,500 MG in SODIUM CHLORIDE 0.9% 250 ML IVPB SCH ×2 (14:00→21:00)
[2021-08-09] MEDS: SODIUM CHLORIDE 0.9% 1,000 ML IV SCH (14:42)
[2021-08-09] MEDS: MORPHINE SULFATE 4 MG/ML SYRINGE IVP PRN ×3 (14:44→23:02)
[2021-08-09] MEDS: atenoloL 50 MG TAB PO SCH (15:35)
[2021-08-09] MEDS: DIPHENOX-ATROP 2.5-0.025 MG 1 EACH TAB PO SCH ×2 (15:36→21:00)
--- NOTE | 2021-08-09 15:54 | P.GSCN ---
History of Present Illness Consult date: 08/09/21 Reason for Consult: Left great toe ischemia Requesting physician: Christine Terrazas History of present illness: Assessment 71-year-old white male who presented to the emergency department with complaints of his left great toe turning purple and black and a rash. He has a past medical history of alcohol and drug abuse, previous smoker, hyperlipidemia and hypertension. He states that about 5-6 weeks ago he started noticing a rash that began on his legs, he states at that time as well he had seen his physician at the [facility] and he got a flu shot. He is unsure if the rash started before or after but he knows it was close to that time. The rash progressively got worse and has spread all over his body and now he feels as if he is having joint pain as well. He called his physician who had told him to go to the ER. He states he went to the ER 2-3 days ago but it was too busy so he went home. He went to see his PCP who sent him to the ER. He states is admitted 10 days ago he started noticing that his toe was painful and turning black. He is unsure if he had any injury to that toe. He had an x-ray with no abnormal findings. He denies any previous history of peripheral arterial disease. Denies any itching with the rash, no fevers or chills. He denies any shortness of breath or chest pain. Seen any drainage from the toe, but states it is painful. He had mild elevation on his WBC 11.6 hemoglobin 12.9 platelet count 335, ESR 20 sodium 139 potassium 4.0 BUN 20 creatinine 1.93 glucose 133 Review of Systems 14 point review of systems completed and all pertinent positives and negatives as stated in the HPI Past Medical History Past Medical History: Cancer, GERD/Reflux, Hypertension, Renal Disease Additional Past Medical History / Comment(s): IBS, SBO, abdominal abscess/sepsis, "borderline kidney disease/abnormal labs" with recent U/S bladder/kidneys per pt, skin cancer with removal, low back pain/herniated discs. History of Any Multi-Drug Resistant Organisms: None Reported Past Surgical History: Appendectomy, Bowel Resection, Tonsillectomy Additional Past Surgical History / Comment(s): Bowel resection many years ago d/t infection and they took appendix out at the same time, 2017 diagnostic laparoscopy/turned into laparotomy for bowel resection/lysis of adhesions for inflammatory mass, colonoscopy, skin cancer removed from forehead. Past Anesthesia/Blood Transfusion Reactions: No Reported Reaction Smoking Status: Former smoker - Past Family History Mother Family Medical History: Diabetes Mellitus Additional Family Medical History / Comment(s): NIDDM Father Family Medical History: Hypertension Medications and Allergies Home Medications Medication Instructions Recorded Confirmed Type Omeprazole 20 mg PO DAILY 11/12/16 08/08/21 History Calcium Carbonate 500 mg PO QID 05/06/21 08/08/21 History Cholecalciferol [Vitamin D3 (25 50 mcg PO BID 05/06/21 08/08/21 History Mcg = 1000 Iu)] Cholestyramine/Aspartame 4 gm PO TID 05/06/21 08/08/21 History [Cholestyramine Light Packet] Cyanocobalamin (Vitamin B-12) 1,000 mcg PO DAILY 05/06/21 08/08/21 History [Vitamin B-12] Diphenox-Atrop 2.5-0.025 mg 3 tab PO TID 05/06/21 08/08/21 History [Lomotil] Magnesium Ox 420mg 420 mg PO BID 05/06/21 08/08/21 History Multivitamins, Thera [Multivitamin 1 tab PO DAILY 05/06/21 08/08/21 History (formulary)] atenoloL [Tenormin] 50 mg PO DAILY 05/06/21 08/08/21 History Allergies Allergy/AdvReac Type Severity Reaction Status Date / Time No Known Allergies Allergy Verified 08/08/21 20:50 Surgical - Exam Vital Signs Temp Pulse Resp BP Pulse Ox 97.6 F 74 18 129/85 99 08/08/21 15:48 08/08/21 15:48 08/08/21 15:48 08/08/21 15:48 08/08/21 15:48 General appearance: The patient is alert, oriented, appears in no acute distress. HET: Head is normocephalic and atraumatic. Pupils are equal and reactive. Neck: Supple without lymphadenopathy. Trachea midline. Heart: S1 S2. Regular rate and rhythm. Lungs: No crackles or wheezes are heard. Abdomen: Soft, nontender, nondistended. Extremities: No edema bilaterally. NonRaised red rash on bilateral upper and lower extremities. Audible bilateral femoral, PT and DP pulses. Good capillary refill. Left great toe red, swollen, with ischemic changes. No drainage noted. Neurological: No focal deficits. Strength and sensation are grossly intact. Results - Labs 08/08/21 18:21 08/09/21 10:08 Abnormal Lab Results - Last 24 Hours (Table) 08/08/21 08/08/21 08/08/21 Range/Units 18:21 18:21 19:44 WBC 11.6 H (3.8-10.6) k/uL Hgb 12.9 L (13.0-17.5) gm/dL MCHC 30.8 L (31.0-37.0) g/dL ESR 20 H (0-15) mm/hr Chloride 111 H (98-107) mmol/L Carbon Dioxide 17 L (22-30) mmol/L Creatinine 1.93 H (0.66-1.25) mg/dL Glucose 133 H (74-99) mg/dL Calcium 6.6 L (8.4-10.2) mg/dL Ionized Calcium Ryan (4.5-5.3) mg/dL Urine Protein 3+ H (Negative) Urine Blood Moderate H (Negative) Urine RBC 20 H (0-5) /hpf Urine Bacteria Rare H (None) /hpf Hyaline Casts 5 H (0-2) /lpf Urine Mucus Rare H (None) /hpf 08/08/21 08/09/21 Range/Units 21:52 10:08 WBC (3.8-10.6) k/uL Hgb (13.0-17.5) gm/dL MCHC (31.0-37.0) g/dL ESR (0-15) mm/hr Chloride (98-107) mmol/L Carbon Dioxide (22-30) mmol/L Creatinine 1.58 H (0.66-1.25) mg/dL Glucose (74-99) mg/dL Calcium (8.4-10.2) mg/dL Ionized Calcium Ryan 4.0 L (4.5-5.3) mg/dL Urine Protein (Negative) Urine Blood (Negative) Urine RBC (0-5) /hpf Urine Bacteria (None) /hpf Hyaline Casts (0-2) /lpf Urine Mucus (None) /hpf Diabetes panel 08/08/21 08/09/21 Range/Units 18:21 10:08 Sodium 139 (137-145) mmol/L Potassium 4.0 (3.5-5.1) mmol/L Chloride 111 H (98-107) mmol/L Carbon Dioxide 17 L (22-30) mmol/L BUN 20 (9-20) mg/dL Creatinine 1.93 H 1.58 H (0.66-1.25) mg/dL Glucose 133 H (74-99) mg/dL Calcium 6.6 L (8.4-10.2) mg/dL AST 25 (17-59) U/L ALT 13 (4-49) U/L Alkaline Phosphatase 47 (38-126) U/L Total Protein 6.9 (6.3-8.2) g/dL Albumin 3.9 (3.5-5.0) g/dL Calcium panel 08/08/21 08/08/21 Range/Units 18:21 21:52 Calcium 6.6 L (8.4-10.2) mg/dL Ionized Calcium Ryan 4.0 L (4.5-5.3) mg/dL Albumin 3.9 (3.5-5.0) g/dL Pituitary panel 08/08/21 08/09/21 Range/Units 18:21 10:08 Sodium 139 (137-145) mmol/L Potassium 4.0 (3.5-5.1) mmol/L Chloride 111 H (98-107) mmol/L Carbon Dioxide 17 L (22-30) mmol/L BUN 20 (9-20) mg/dL Creatinine 1.93 H 1.58 H (0.66-1.25) mg/dL Glucose 133 H (74-99) mg/dL Calcium 6.6 L (8.4-10.2) mg/dL Adrenal panel 08/08/21 08/09/21 Range/Units 18:21 10:08 Sodium 139 (137-145) mmol/L Potassium 4.0 (3.5-5.1) mmol/L Chloride 111 H (98-107) mmol/L Carbon Dioxide 17 L (22-30) mmol/L BUN 20 (9-20) mg/dL Creatinine 1.93 H 1.58 H (0.66-1.25) mg/dL Glucose 133 H (74-99) mg/dL Calcium 6.6 L (8.4-10.2) mg/dL Total Bilirubin 0.6 (0.2-1.3) mg/dL AST 25 (17-59) U/L ALT 13 (4-49) U/L Alkaline Phosphatase 47 (38-126) U/L Total Protein 6.9 (6.3-8.2) g/dL Albumin 3.9 (3.5-5.0) g/dL - Imaging Comments: Foot x-ray reviewed Assessment and Plan Assessment: 1. Left great toe ischemia, possible vasculitis 2. Rash 3. Former smoker Plan: 1. Continue symptomatic part of care 2. Start IV fluids 3. Discontinue vancomycin due to kidney function 4. Repeat labs 5. Plan for CTA of lower extremities if kidney function improves 6. Further recommendations forthcoming Thank you for this consultation and allowing us take part in the plan of care of your patient during his hospital stay. The impression and plan of care has been dictated as directed. Dr. Mena I performed a history and examination of this patient, discussed the same with the dictator. I agree with the dictator's note ,documented as a scribe. Any additional findings or plans will be noted.
[2021-08-09] MEDS: CHOLESTYRAMINE (WITH SUGAR) 4 GM PACKET PO SCH ×2 (16:43→20:59)
[2021-08-09] MEDS: AMPICILLIN-SULBACTAM 3 GM in SODIUM CHLORIDE 0.9% 100 ML IVPB SCH ×2 (17:16→23:03)
[2021-08-09] MEDS: MAGNESIUM OXIDE 400 MG TAB PO SCH (21:00)
[2021-08-10] MEDS: SODIUM CHLORIDE 0.9% 1,000 ML IV SCH ×2 (00:52→19:55)
[2021-08-10] MEDS: MORPHINE SULFATE 4 MG/ML SYRINGE IVP PRN ×5 (03:09→19:57)
[2021-08-10] MEDS: AMPICILLIN-SULBACTAM 3 GM in SODIUM CHLORIDE 0.9% 100 ML IVPB SCH ×3 (05:06→17:17)
[2021-08-10] MEDS: PANTOPRAZOLE 40 MG TABLET PO SCH (08:14)
[2021-08-10] MEDS: MAGNESIUM OXIDE 400 MG TAB PO SCH ×2 (08:14→19:56)
[2021-08-10] MEDS: MULTIVITAMINS, THERA 1 EACH TAB PO SCH (08:14)
[2021-08-10] MEDS: CYANOCOBALAMIN 500 MCG TAB PO SCH (08:14)
[2021-08-10] MEDS: atenoloL 50 MG TAB PO SCH (08:15)
[2021-08-10] MEDS: CALCIUM CARBONATE 500 MG CHEWABLE PO SCH ×8 (08:15→19:57)
[2021-08-10] MEDS: CHOLECALCIFEROL 25 MCG (1000 IU) TABLET PO SCH (08:15)
[2021-08-10] MEDS: CHOLESTYRAMINE (WITH SUGAR) 4 GM PACKET PO SCH ×3 (08:16→21:22)
--- NOTE | 2021-08-10 08:22 | P.CONS ---
History of Present Illness - Reason for Consult Consult date: 08/09/21 left big toe infection Requesting physician: Christine Terrazas - Chief Complaint left big toe discoloration x days - History of Present Illness History of present illness : Patient is 71-year-old male who apparently has been dealing with a generalized rash throughout his body that has been going on since mid June 2021 patient did not recall using any new m edication has been complaining of some itching to the rash area admission apparently has improved denies having any oral or mucous membrane lesion patient has also developed discoloration to his left big toe area, patient denies having any injury to the left big toe patient did have a mild handle aching pain 2-3 out of 10 and no radiation with associated swelling no open wound or any drainage patient on presentation to the hospital was afebrile and no fever has been recorded subsequently patient did have a mild elevated white count of 11.6 creatinine 1.93 liver enzymes are normal CRP is normal did have some hematuria batres PCR was negative blood culture has been obtained patient did have x-ray of the toe no acute bony abnormality patient has been admitted to the hospital he did received a dose of vancomycin in the ER infectious was consulted for further management of antibiotic therapy Review of system: CONSTITUTIONAL: Positive for weakness denies fever. EYES: No complaint. ENT: No complaint. RESPIRATORY: No complaint. CARDIOVASCULAR: No complaint. GENITOURINARY: No complaint. GASTROINTESTINAL: No complaint. MUSCULOSKELETAL: As per history of present illness. INTEGUMENTARY: As per history of present illness. PSYCHOLOGIC: No complaint. ENDOCRINE: No complaint. NEUROLOGIC: No complaint. Past medical history : Reviewed, documented below Past surgical history : Reviewed, documented below Social history: Reviewed, documented below Medications: Reviewed, as documented below EXAMINATION: Vital sigans= Reviewed and documented below GENERAL DESCRIPTION: Elderly male lying in bed, no distress. No tachypnea or accessory muscle of respiration use. HEENT: Shows Pallor , no scleral icterus. Oral mucous membrane is dry. NECK: Trachea central, no thyromegaly. LUNGS: Unlabored breathing. Clear to auscultation anteriorly. No wheeze or crackle. HEART: S1, S2, regular rate and rhythm. ABDOMEN: Soft, no tenderness , guarding or rigidity EXTREMITIES: No edema of feet. Left big toe discolored minimal swelling no significant redness or drainage SKIN: Generalized petechial rash, no masses palpable. NEUROLOGICAL: The patient is awake, alert, oriented x3, mood and affect normal. LABS AND RADIOLOGY: Reviewed results see below Assessment :1-patient presented to hospital with malaise rash throughout his upper and lower extremity and trunk that has been going on since mid June 2021 possible vasculitis clinically not behaving as a infectious rash 2-left big toe gangrene could be the consequence of underlying vasculitis less likely second infection in this patient with no fever elevated white count and normal CRP Plan: 1-we will empirically add Unasyn while waiting for the work-up to finalize 2-we will obtain BERNARD, ANCA antiphospholipid antibodies complement level 3-recommend obtaining rheumatology evaluation We will follow on clinical condition and cultures to further adjust medication if needed Thank you for this consultation we will follow the patient along with you Past Medical History Past Medical History: Cancer, GERD/Reflux, Hypertension, Renal Disease Additional Past Medical History / Comment(s): IBS, SBO, abdominal abscess/sepsis, "borderline kidney disease/abnormal labs" with recent U/S bladder/kidneys per pt, skin cancer with removal, low back pain/herniated discs. History of Any Multi-Drug Resistant Organisms: None Reported Past Surgical History: Appendectomy, Bowel Resection, Tonsillectomy Additional Past Surgical History / Comment(s): Bowel resection many years ago d/t infection and they took appendix out at the same time, 2017 diagnostic laparoscopy/turned into laparotomy for bowel resection/lysis of adhesions for inflammatory mass, colonoscopy, skin cancer removed from forehead. Past Anesthesia/Blood Transfusion Reactions: No Reported Reaction Smoking Status: Former smoker - Past Family History Mother Family Medical History: Diabetes Mellitus Additional Family Medical History / Comment(s): NIDDM Father Family Medical History: Hypertension Medications and Allergies Home Medications Medication Instructions Recorded Confirmed Type Omeprazole 20 mg PO DAILY 11/12/16 08/08/21 History Calcium Carbonate 500 mg PO QID 05/06/21 08/08/21 History Cholecalciferol [Vitamin D3 (25 50 mcg PO BID 05/06/21 08/08/21 History Mcg = 1000 Iu)] Cholestyramine/Aspartame 4 gm PO TID 05/06/21 08/08/21 History [Cholestyramine Light Packet] Cyanocobalamin (Vitamin B-12) 1,000 mcg PO DAILY 05/06/21 08/08/21 History [Vitamin B-12] Diphenox-Atrop 2.5-0.025 mg 3 tab PO TID 05/06/21 08/08/21 History [Lomotil] Magnesium Ox 420mg 420 mg PO BID 05/06/21 08/08/21 History Multivitamins, Thera [Multivitamin 1 tab PO DAILY 05/06/21 08/08/21 History (formulary)] atenoloL [Tenormin] 50 mg PO DAILY 05/06/21 08/08/21 History Allergies Allergy/AdvReac Type Severity Reaction Status Date / Time No Known Allergies Allergy Verified 08/08/21 20:50 Physical Exam Vitals: Vital Signs Temp Pulse Pulse Resp BP BP Pulse Ox 08/09/21 14:38 97.9 F 78 16 162/88 98 08/09/21 14:37 98.8 F 110 H 16 136/81 93 L 08/09/21 12:31 85 149/95 96 08/09/21 12:00 88 134/98 95 08/09/21 07:30 97.1 F L 75 18 174/98 97 08/09/21 05:19 97 F L 76 18 179/108 97 08/09/21 03:17 75 18 169/97 99 08/08/21 23:52 98.7 F 80 16 169/99 98 08/08/21 15:48 97.6 F 74 18 129/85 99 Intake and Output 08/08/21 08/09/21 08/09/21 22:59 06:59 14:59 Other: # Voids 1 Weight 98.883 kg 98.883 kg Results CBC & Chem 7: 08/08/21 18:21 08/10/21 06:51 Labs: Abnormal Lab Results - Last 24 Hours (Table) 08/08/21 08/08/21 08/08/21 Range/Units 18:21 18:21 19:44 WBC 11.6 H (3.8-10.6) k/uL Hgb 12.9 L (13.0-17.5) gm/dL MCHC 30.8 L (31.0-37.0) g/dL ESR 20 H (0-15) mm/hr Chloride 111 H (98-107) mmol/L Carbon Dioxide 17 L (22-30) mmol/L Creatinine 1.93 H (0.66-1.25) mg/dL Glucose 133 H (74-99) mg/dL Calcium 6.6 L (8.4-10.2) mg/dL Ionized Calcium Ryan (4.5-5.3) mg/dL Urine Protein 3+ H (Negative) Urine Blood Moderate H (Negative) Urine RBC 20 H (0-5) /hpf Urine Bacteria Rare H (None) /hpf Hyaline Casts 5 H (0-2) /lpf Urine Mucus Rare H (None) /hpf 08/08/21 08/09/21 Range/Units 21:52 10:08 WBC (3.8-10.6) k/uL Hgb (13.0-17.5) gm/dL MCHC (31.0-37.0) g/dL ESR (0-15) mm/hr Chloride (98-107) mmol/L Carbon Dioxide (22-30) mmol/L Creatinine 1.58 H (0.66-1.25) mg/dL Glucose (74-99) mg/dL Calcium (8.4-10.2) mg/dL Ionized Calcium Ryan 4.0 L (4.5-5.3) mg/dL Urine Protein (Negative) Urine Blood (Negative) Urine RBC (0-5) /hpf Urine Bacteria (None) /hpf Hyaline Casts (0-2) /lpf Urine Mucus (None) /hpf
[2021-08-10] MEDS ORDERED: atenoloL 50 MG TAB PO SCH (09:00)
--- NOTE | 2021-08-10 11:41 | P.HPIM ---
History of Present Illness H&P Date: 08/09/21 Chief Complaint: Left great toe discoloration/generalized rash 71-year-old white male who presented to the emergency department with complaints of his left great toe turning purple and black and a rash. He has a past medical history of alcohol and drug abuse, previous smoker, hyperlipidemia and hypertension. He states that about 5-6 weeks ago he started noticing a rash that began on his legs, he states at that time as well he had seen his physician at the [facility] and he got a flu shot. He is unsure if the rash started before or after but he knows it was close to that time. The rash progressively got worse and has spread all over his body and now he feels as if he is having joint pain as well. He called his physician who had told him to go to the ER. He sta harmony he went to the ER 2-3 days ago but it was too busy so he went home. He went to see his PCP who sent him to the ER. He states is admitted 10 days ago he started noticing that his toe was painful and turning black. He is unsure if he had any injury to that toe. He had an x-ray with no abnormal findings. He denies any previous history of peripheral arterial disease. Denies any itching with the rash, no fevers or chills. He denies any shortness of breath or chest pain. Seen any drainage from the toe, but states it is painful. Workup in ED revealed mild elevation on his WBC 11.6 hemoglobin 12.9 platelet count 335, ESR 20 sodium 139 potassium 4.0 BUN 20 creatinine 1.93 glucose 133 Review of Systems REVIEW OF SYSTEMS: CONSTITUTIONAL: No fever, no malaise, no fatigue. HEENT: No recent visual problems or hearing problems. Denied any sore throat. CARDIOVASCULAR: No chest pain, orthopnea, PND, no palpitations, no syncope. PULMONARY: No shortness of breath, no cough, no hemoptysis. GASTROINTESTINAL: No diarrhea, no nausea, no vomiting, no abdominal pain. NEUROLOGICAL: No headaches, no weakness, no numbness. HEMATOLOGICAL: Denies any bleeding or petechiae. GENITOURINARY: Denies any burning micturition, frequency, or urgency. MUSCULOSKELETAL/RHEUMATOLOGICAL: Denies any joint pain, swelling, or any muscle pain. ENDOCRINE: Denies any polyuria or polydipsia. The rest of the 14-point review of systems is negative. Past Medical History Past Medical History: GERD/Reflux, Hypertension Additional Past Medical History / Comment(s): IBS, "HERNIATED DICS LOWER BACK" History of Any Multi-Drug Resistant Organisms: None Reported Past Surgical History: Appendectomy, Bowel Resection, Tubal Ligation Additional Past Surgical History / Comment(s): "35 YEARS AGO HAD BOWEL SX- REMOVED A FOOT OF INTESTINE D/T LOW GRADE INFECTION" Past Anesthesia/Blood Transfusion Reactions: No Reported Reaction Past Psychological History: Anxiety Smoking Status: Never smoker Past Alcohol Use History: Occasional Past Drug Use History: None Reported - Past Family History Mother Family Medical History: Diabetes Mellitus Father Family Medical History: Hypertension Medications and Allergies Home Medications Medication Instructions Recorded Confirmed Type Omeprazole 20 mg PO DAILY 11/12/16 08/08/21 History Calcium Carbonate 500 mg PO QID 05/06/21 08/08/21 History Cholecalciferol [Vitamin D3 (25 50 mcg PO BID 05/06/21 08/08/21 History Mcg = 1000 Iu)] Cholestyramine/Aspartame 4 gm PO TID 05/06/21 08/08/21 History [Cholestyramine Light Packet] Cyanocobalamin (Vitamin B-12) 1,000 mcg PO DAILY 05/06/21 08/08/21 History [Vitamin B-12] Diphenox-Atrop 2.5-0.025 mg 3 tab PO TID 05/06/21 08/08/21 History [Lomotil] Magnesium Ox 420mg 420 mg PO BID 05/06/21 08/08/21 History Multivitamins, Thera [Multivitamin 1 tab PO DAILY 05/06/21 08/08/21 History (formulary)] atenoloL [Tenormin] 50 mg PO DAILY 05/06/21 08/08/21 History Allergies Allergy/AdvReac Type Severity Reaction Status Date / Time No Known Allergies Allergy Verified 08/08/21 20:50 Physical Exam Vitals: Vital Signs Temp Pulse Pulse Resp BP BP Pulse Ox 08/09/21 07:30 97.1 F L 75 18 174/98 97 08/09/21 05:19 97 F L 76 18 179/108 97 08/09/21 03:17 75 18 169/97 99 08/08/21 23:52 98.7 F 80 16 169/99 98 08/08/21 15:48 97.6 F 74 18 129/85 99 Intake and Output 08/08/21 08/09/21 08/09/21 22:59 06:59 14:59 Other: Weight 98.883 kg General appearance: The patient is alert, oriented, appears in no acute distress. HET: Head is normocephalic and atraumatic. Pupils are equal and reactive. Neck: Supple without lymphadenopathy. Trachea midline. Heart: S1 S2. Regular rate and rhythm. Lungs: No crackles or wheezes are heard. Abdomen: Soft, nontender, nondistended. Extremities: No edema bilaterally. NonRaised red rash on bilateral upper and lower extremities. Pulses are palpable. Good capillary refill. Left great toe red, swollen, with ischemic changes. No drainage noted. Neurological: No focal deficits. Strength and sensation are grossly intact. Results CBC & Chem 7: 08/08/21 18:21 08/10/21 06:51 Labs: Abnormal Lab Results - Last 24 Hours (Table) 08/08/21 08/08/21 08/08/21 Range/Units 18:21 18:21 19:44 WBC 11.6 H (3.8-10.6) k/uL Hgb 12.9 L (13.0-17.5) gm/dL MCHC 30.8 L (31.0-37.0) g/dL ESR 20 H (0-15) mm/hr Chloride 111 H (98-107) mmol/L Carbon Dioxide 17 L (22-30) mmol/L Creatinine 1.93 H (0.66-1.25) mg/dL Glucose 133 H (74-99) mg/dL Calcium 6.6 L (8.4-10.2) mg/dL Ionized Calcium Ryan (4.5-5.3) mg/dL Urine Protein 3+ H (Negative) Urine Blood Moderate H (Negative) Urine RBC 20 H (0-5) /hpf Urine Bacteria Rare H (None) /hpf Hyaline Casts 5 H (0-2) /lpf Urine Mucus Rare H (None) /hpf 08/08/21 Range/Units 21:52 WBC (3.8-10.6) k/uL Hgb (13.0-17.5) gm/dL MCHC (31.0-37.0) g/dL ESR (0-15) mm/hr Chloride (98-107) mmol/L Carbon Dioxide (22-30) mmol/L Creatinine (0.66-1.25) mg/dL Glucose (74-99) mg/dL Calcium (8.4-10.2) mg/dL Ionized Calcium Ryan 4.0 L (4.5-5.3) mg/dL Urine Protein (Negative) Urine Blood (Negative) Urine RBC (0-5) /hpf Urine Bacteria (None) /hpf Hyaline Casts (0-2) /lpf Urine Mucus (None) /hpf Assessment and Plan Assessment: 1. Left great toe ischemia/gangrene - Patient has been placed on IV antibiotics in form of Unasyn; IDs consulted and recommending to continue Unasyn and CTA of lower extremity once renal function improves; we will monitor CBC, CRP and pro-calcitonin 2. Generalized rash/possible vasculitis versus infectious rash - Patient has had rash that started mid-June 2021; likely vasculitis, less likely infectious rash given normal CBC and CRP - We will consult rheumatology for further recommendations 3. Hypertension - Stable on home dose of atenolol 50 mg daily; we will monitor blood pressure closely for any need for any further adjustments 4. Chronic kidney disease; creatinine at baseline; we will monitor renal function closely; monitor strict KRISTINA's; avoid nephrotoxins and hypotension 5. Gastroesophageal reflux disease; Protonix 40 mg daily 6. Vitamin B12 deficiency; vitamin B-12 1000 MCG daily DVT prophylaxis; SCDs/subcu heparin CODE STATUS; full code
--- NOTE | 2021-08-10 12:41 | P.PN ---
Subjective Progress Note Date: 08/10/21 Patient is evaluated today in follow-up care. Indicates that his left great toe feels somewhat improved. He otherwise is without complaints. Objective - Vital Signs Vital signs: Vital Signs Temp 98 F 08/10/21 07:00 Pulse 69 08/10/21 07:00 Resp 18 08/10/21 07:00 BP 166/88 08/10/21 07:00 Pulse Ox 99 08/10/21 07:00 Intake & Output 08/09/21 08/10/21 08/10/21 18:59 06:59 18:59 Intake Total 118 250 120 Output Total 0 Balance 118 250 120 Weight 98.883 kg Intake: Oral 118 250 120 Output: Emesis 0 Other: # Voids 1 4 - Exam Femoral, popliteal, DP and PT pulses are intact bilaterally. The left great toe demonstrates ischemic changes at the mid toe and distal tip areas. Toes are freely movable. Minimal discomfort is noted to palpation. There is no leg edema. - Labs CBC & Chem 7: 08/08/21 18:21 08/10/21 06:51 Labs: Abnormal Lab Results - Last 24 Hours (Table) 08/10/21 Range/Units 06:51 Creatinine 1.32 H (0.66-1.25) mg/dL Microbiology - Last 24 Hours (Table) 08/08/21 18:21 Blood Culture - Preliminary Blood No Growth after 24 hours 08/08/21 18:21 Blood Culture - Preliminary Blood No Growth after 24 hours Assessment and Plan Assessment: Ischemic changes left great toe. Plan: #1: Obtain arterial Doppler study. #2: Further recommendations be made based on arterial Doppler study however appears from a overall standpoint the patient has normal arterial perfusion. #3: Add aspirin 81 mg daily. Time with Patient: Less than 30
[2021-08-10] MEDS: ASPIRIN 81 MG PO SCH (12:58)
[2021-08-10] MEDS: DIPHENOX-ATROP 2.5-0.025 MG 1 EACH TAB PO SCH ×3 (12:59→21:21)
--- NOTE | 2021-08-10 19:05 | PN ---
PROGRESS NOTE DATE OF SERVICE: 08/10/2021 REASON FOR FOLLOWUP: 1. Petechial rash. 2. Left big toe cellulitis. INTERVAL HISTORY: The patient is afebrile. The patient is breathing comfortably. The patient denies having any chest pain, shortness of breath or cough. No abdominal pain. No worsening rash or any worsening pain to the left big toe. PHYSICAL EXAMINATION: Blood pressure 161/83 with a pulse of 62, temperature 97.9. He is 96% on room air. General description is an elderly male lying in bed in no distress. Respiratory system: Unlabored breathing, clear to auscultation anteriorly. Heart S1, S2. Regular rate and rhythm. Abdomen soft, no tenderness. Left great toe remains discolored. No drainage was noticed. LABS: Blood culture negative so far. DIAGNOSTIC IMPRESSION AND PLAN: 1. Patient with petechial rash, possible vasculitis. Workup is pending. May benefit from steroid. 2. Left big toe some necrotic changes, possibly related to underlying vasculitis. Underlying infectious etiology less likely, not entirely excluded. Patient is covered with Unasyn. Monitor clinical course closely. MMODL / IJN: [id number] / DENNIS
[2021-08-11] MEDS: AMPICILLIN-SULBACTAM 3 GM in SODIUM CHLORIDE 0.9% 100 ML IVPB SCH ×4 (00:01→17:38)
[2021-08-11] MEDS: MORPHINE SULFATE 4 MG/ML SYRINGE IVP PRN ×6 (00:02→20:32)
[2021-08-11] MEDS: SODIUM CHLORIDE 0.9% 1,000 ML IV SCH ×2 (00:04→20:31)
[2021-08-11] MEDS: CHOLESTYRAMINE (WITH SUGAR) 4 GM PACKET PO SCH ×3 (08:13→23:38)
[2021-08-11] MEDS: DIPHENOX-ATROP 2.5-0.025 MG 1 EACH TAB PO SCH ×3 (08:13→23:38)
[2021-08-11] MEDS: CALCIUM CARBONATE 500 MG CHEWABLE PO SCH ×8 (08:20→23:40)
[2021-08-11] MEDS: CHOLECALCIFEROL 25 MCG (1000 IU) TABLET PO SCH (08:20)
[2021-08-11] MEDS: PANTOPRAZOLE 40 MG TABLET PO SCH (08:20)
[2021-08-11] MEDS: CYANOCOBALAMIN 500 MCG TAB PO SCH (08:20)
[2021-08-11] MEDS: ASPIRIN 81 MG PO SCH (08:21)
[2021-08-11] MEDS: MAGNESIUM OXIDE 400 MG TAB PO SCH ×2 (08:21→20:33)
[2021-08-11] MEDS: MULTIVITAMINS, THERA 1 EACH TAB PO SCH (08:21)
[2021-08-11] MEDS: atenoloL 50 MG TAB PO SCH (08:21)
[2021-08-11 11:00] LABS: Basophils # (A) 0.06 X 10*3/uL (0.00-0.10); Basophils % (A) 0.6 %; Eosinophils # (A) 0.39 X 10*3/uL (0.04-0.35); Eosinophils % (A) 3.8 %; HCT 39.7 % (39.6-50.0); HGB 12.1 g/dL (13.0-17.0); Immature Grans, Automated 0.3 %; Lymphocytes # (A) 1.78 X 10*3/uL (0.90-5.00); Lymphocytes % (A) 17.5 %; MCH 28.5 pg (27.0-32.0); MCHC 30.5 g/dL (32.0-37.0); MCV 93.4 fL (80.0-97.0); Mean Platelet Volume 10.1 fL (9.5-12.2); Monocytes # (A) 0.87 X 10*3/uL (0.20-1.00); Monocytes % (A) 8.6 %; NRBC Per 100 WBC 0 /100 WBCS (0.0-0.0); Neutrophils # (A) 7.03 X 10*3/uL (1.80-7.70); Neutrophils % (A) 69.2 %; Platelet Count 309 X 10*3/uL (140-440); RBC 4.25 X 10*6/uL (4.40-5.60); RDW 14.3 % (11.5-14.5); WBC 10.16 X 10*3/uL (4.50-10.00)
[2021-08-11 11:31] LABS: African American GFR (CKD) 65.2 (60.0-200.0); Anion Gap 11.8 mmol/L (10.00-18.00); BUN/Creat Ratio 10.4 Ratio (12.00-20.00); Blood Urea Nitrogen 13.1 mg/dL (9.0-27.0); Calcium 6.6 mg/dL (8.7-10.3); Carbon Dioxide 24.9 mmol/L (20.0-27.5); Non-African American GFR(CKD) 56.2 (60.0-200.0)
[2021-08-11] MEDS ORDERED: VANCOMYCIN TROUGH DUE 1 EACH MISC MISCELLANE ONE (20:00)
--- NOTE | 2021-08-11 20:16 | P.PN ---
Subjective Progress Note Date: 08/11/21 Principal diagnosis: Left great toe ischemia/gangrene Possible vasculitis 71-year-old white male who presented to the emergency department with complaint s of his left great toe turning purple and black and a rash. He has a past medical history of alcohol and drug abuse, previous smoker, hyperlipidemia and hypertension. He states that about 5-6 weeks ago he started noticing a rash that began on his legs, he states at that time as well he had seen his physician at the [facility] and he got a flu shot. He is unsure if the rash started before or after but he knows it was close to that time. The rash progressively got worse and has spread all over his body and now he feels as if he is having joint pain as well. He called his physician who had told him to go to the ER. He states he went to the ER 2-3 days ago but it was too busy so he went home. He went to see his PCP who sent him to the ER. He states is admitted 10 days ago he started noticing that his toe was painful and turning black. He is unsure if he had any injury to that toe. He had an x-ray with no abnormal findings. He denies any previous history of peripheral arterial disease. Denies any itching with the rash, no fevers or chills. He denies any shortness of breath or chest pain. Seen any drainage from the toe, but states it is painful. Workup in ED revealed mild elevation on his WBC 11.6 hemoglobin 12.9 platelet count 335, ESR 20 sodium 139 potassium 4.0 BUN 20 creatinine 1.93 glucose 133 08/11/2021 Patient is seen and evaluated in room at bedside; denies any specific complaints; reports slight improvement in rash without any new areas Vital signs are reviewed and remained stable with temperature of 98.1, pulse 78, respiration 18 and blood pressure of 159/86; O2 saturation 93% on 3 L Labs are reviewed; WBC is trending down and is at 10.1 this morning; sodium 139, potassium 4.0, BUN/creatinine improved to 13.1/1.3 Patient remains on IV Unasyn per ID recommendations; vascular surgery on board and recommended arterial Doppler which was unremarkable Rheumatology has been consulted; we await evaluation and recommendations Objective - Vital Signs Vital signs: Vital Signs Temp 98.1 F 08/11/21 15:00 Pulse 78 08/11/21 15:00 Resp 18 08/11/21 15:00 BP 159/86 08/11/21 15:00 Pulse Ox 93 L 08/11/21 15:00 Intake & Output 08/11/21 08/11/21 08/12/21 06:59 18:59 06:59 Intake Total 720 Balance 720 Intake: Oral 720 Other: # Voids 2 2 - Exam General appearance: The patient is alert, oriented, appears in no acute distress. HET: Head is normocephalic and atraumatic. Pupils are equal and reactive. Neck: Supple without lymphadenopathy. Trachea midline. Heart: S1 S2. Regular rate and rhythm. Lungs: No crackles or wheezes are heard. Abdomen: Soft, nontender, nondistended. Extremities: No edema bilaterally. NonRaised red rash on bilateral upper and lower extremities. Pulses are palpable. Good capillary refill. Left great toe red, swollen, with ischemic changes. No drainage noted. Neurological: No focal deficits. Strength and sensation are grossly intact. - Labs CBC & Chem 7: 08/11/21 07:40 08/11/21 07:40 Labs: Abnormal Lab Results - Last 24 Hours (Table) 08/11/21 08/11/21 Range/Units 07:40 07:40 WBC 10.16 H (4.50-10.00) X 10*3/uL RBC 4.25 L (4.40-5.60) X 10*6/uL Hgb 12.1 L (13.0-17.0) g/dL MCHC 30.5 L (32.0-37.0) g/dL Eosinophils # 0.39 H (0.04-0.35) X 10*3/uL Est GFR (CKD-EPI)NonAf 56.2 L (60.0-200.0) BUN/Creatinine Ratio 10.40 L (12.00-20.00) Ratio Calcium 6.6 L (8.7-10.3) mg/dL Rheumatoid Factor 35 H (0-15) IU/mL Microbiology - Last 24 Hours (Table) 08/08/21 18:21 Blood Culture - Preliminary Blood No Growth after 48 hours 08/08/21 18:21 Blood Culture - Preliminary Blood No Growth after 48 hours Assessment and Plan Assessment: 1. Left great toe ischemia/gangrene - Patient has been placed on IV antibiotics in form of Unasyn; IDs consulted and recommending to continue Unasyn and CTA of lower extremity once renal function improves; we will monitor CBC, CRP and pro-calcitonin 2. Generalized rash/possible vasculitis versus infectious rash - Patient has had rash that started mid-June 2021; likely vasculitis, less likely infectious rash given normal CBC and CRP - We will consult rheumatology for further recommendations 3. Hypertension - Stable on home dose of atenolol 50 mg daily; we will monitor blood pressure closely for any need for any further adjustments 4. Chronic kidney disease; creatinine at baseline; we will monitor renal function closely; monitor strict KRISTINA's; avoid nephrotoxins and hypotension 5. Gastroesophageal reflux disease; Protonix 40 mg daily 6. Vitamin B12 deficiency; vitamin B-12 1000 MCG daily DVT prophylaxis; SCDs/subcu heparin CODE STATUS; full code
[2021-08-12] MEDS: MORPHINE SULFATE 4 MG/ML SYRINGE IVP PRN ×6 (00:24→21:37)
[2021-08-12] MEDS: AMPICILLIN-SULBACTAM 3 GM in SODIUM CHLORIDE 0.9% 100 ML IVPB SCH ×4 (00:24→17:36)
[2021-08-12] MEDS: SODIUM CHLORIDE 0.9% 1,000 ML IV SCH ×2 (05:25→15:00)
--- NOTE | 2021-08-12 06:13 | PN ---
PROGRESS NOTE DATE OF SERVICE: 08/11/2021 REASON FOR FOLLOWUP: 1. Left big toe ischemia question cellulitis. 2. Rash. INTERVAL HISTORY: Patient is afebrile. The patient is breathing comfortably. The patient denies having any chest pain, shortness of breath, cough, no abdominal pain, or any worsening pain to the left big toe. PHYSICAL EXAMINATION: Blood pressure 159/86 with pulse 78. Temperature 98.1. He is 93% on room air. General description is an elderly male lying in bed in no distress. Respiratory system: Unlabored breathing, clear to auscultation anteriorly. Heart S1, S2. Regular rate and rhythm. Abdomen soft, no tenderness. Left big toe remains to be discolored. No significant redness or drainage. LABS: Hemoglobin 12.1, white count 10.16, creatinine is 1.3. DIAGNOSTIC IMPRESSION AND PLAN: 1. Patient with left big toe discoloration more likely ischemic in this patient who did have vasculitis and possible infection,Culture has been negative. On empiric Unasyn. May transition to a course of oral Augmentin on discharge. Continue supportive care as there is no plan for surgery. MMODL / IJN: [id number] / MTDD
[2021-08-12] MEDS: CHOLESTYRAMINE (WITH SUGAR) 4 GM PACKET PO SCH ×3 (09:23→21:38)
[2021-08-12] MEDS: DIPHENOX-ATROP 2.5-0.025 MG 1 EACH TAB PO SCH ×3 (09:24→21:38)
[2021-08-12] MEDS: ASPIRIN 81 MG PO SCH (09:25)
[2021-08-12] MEDS: MAGNESIUM OXIDE 400 MG TAB PO SCH ×2 (09:25→21:38)
[2021-08-12] MEDS: CALCIUM CARBONATE 500 MG CHEWABLE PO SCH ×8 (09:25→21:38)
[2021-08-12] MEDS: MULTIVITAMINS, THERA 1 EACH TAB PO SCH (09:26)
[2021-08-12] MEDS: PANTOPRAZOLE 40 MG TABLET PO SCH (09:26)
[2021-08-12] MEDS: atenoloL 50 MG TAB PO SCH (09:26)
[2021-08-12] MEDS: CHOLECALCIFEROL 25 MCG (1000 IU) TABLET PO SCH (09:27)
[2021-08-12] MEDS: CYANOCOBALAMIN 500 MCG TAB PO SCH (09:27)
[2021-08-12] MEDS ORDERED: ALPRAZolam 0.25 MG TAB PO PRN (12:07)
--- NOTE | 2021-08-12 13:00 | P.PN ---
Subjective Progress Note Date: 08/12/21 This 71-year-old male who presented to the emergency department last week with a rash and ischemic changes to his left great toe. Patient is being treated for vasculitis and recommendations are for follow-up with rheumatology. Yesterday patient underwent arterial duplex that showed JERO of 1.18 on the right and 1.13 on the left. He denies any pain in his legs, fever, or chills. Still has some joint pain. Left toes he states is about the same. He has been afebrile. Objective - Vital Signs Vital signs: Vital Signs Temp 98.4 F 08/12/21 03:35 Pulse 77 08/12/21 03:35 Resp 16 08/12/21 03:35 BP 171/86 08/12/21 03:35 Pulse Ox 96 08/12/21 03:35 Intake & Output 08/11/21 08/12/21 08/12/21 18:59 06:59 18:59 Intake Total 720 Balance 720 Intake: Oral 720 Other: # Voids 2 1 - Exam General appearance: The patient is alert, oriented, appears in no acute distress. HET: Head is normocephalic and atraumatic. bowel sounds. Extremities: No lower extremity edema bilaterally. Palpable bilateral femoral, popliteal DP and PT pulses bilaterally. Diffuse nonraised rash on bilateral upper and lower extremities. Left great toe with ischemic changes to the mid and distal tip. Neurological: No focal deficits. Strength and sensation are grossly intact. - Labs CBC & Chem 7: 08/11/21 07:40 08/11/21 07:40 Labs: Abnormal Lab Results - Last 24 Hours (Table) 08/11/21 08/11/21 Range/Units 07:40 07:40 WBC 10.16 H (4.50-10.00) X 10*3/uL RBC 4.25 L (4.40-5.60) X 10*6/uL Hgb 12.1 L (13.0-17.0) g/dL MCHC 30.5 L (32.0-37.0) g/dL Eosinophils # 0.39 H (0.04-0.35) X 10*3/uL Est GFR (CKD-EPI)NonAf 56.2 L (60.0-200.0) BUN/Creatinine Ratio 10.40 L (12.00-20.00) Ratio Calcium 6.6 L (8.7-10.3) mg/dL Rheumatoid Factor 35 H (0-15) IU/mL Microbiology - Last 24 Hours (Table) 08/08/21 18:21 Blood Culture - Preliminary Blood No Growth after 72 hours 08/08/21 18:21 Blood Culture - Preliminary Blood No Growth after 72 hours Assessment and Plan Assessment: 1. Left great toe ischemia 2. Rash 3. Former smoker Plan: 1. Arterial Doppler studies ordered and reviewed 2. Continue aspirin 81 mg daily 3. Agree with rheumatology consult for outpatient follow-up 4. Patient is stable from a vascular surgical standpoint to be discharged with follow-up. Likely will need amputation of the left great toe. Thank you for this consultation, we will continue to follow. The impression and plan of care has been dictated as directed. Dr. Toussaint I performed a history and examination of this patient, discussed the same with the dictator. I agree with the dictator's note ,documented as a scribe. Any additional findings or plans will be noted.
[2021-08-12 14:41] LABS: C-ANCA <1:20 Titer (<1:20)
--- NOTE | 2021-08-12 18:01 | PN ---
PROGRESS NOTE DATE OF SERVICE: 08/12/2021. REASON FOR FOLLOWUP: Left big toe gangrene and a question of cellulitis. INTERVAL HISTORY: Patient is afebrile. He is breathing comfortably. Denies any chest pain, shortness of breath or cough. No abdominal pain or any worsening pain to the left big toe area. PHYSICAL EXAMINATION: Blood pressure is 186/93. Pulse 55. Temperature 98.1. General description is elderly male lying in bed in no distress. Respiratory system: Unlabored breathing, clear to auscultation anteriorly. Heart S1, S2. Regular rate and rhythm. Abdomen soft. Left big toe remains to be covered. No significant redness or drainage. LABS: Hemoglobin is 12.1, white count 10.1. DIAGNOSTIC IMPRESSION AND PLAN: Patient with left big toe gangrene, possible vasculitis, now has significant evidence of chronic cellulitis. The patient to continue with Unasyn. Transition to oral Augmentin on discharge. Close outpatient followup. Vascular surgery is planning for amputation of the left big toe the outpatient setting MMODL / IJN: [id number] / DENNIS
--- NOTE | 2021-08-12 20:19 | PN ---
PROGRESS NOTE DATE OF SERVICE: 08/12/2021 This 71-year-old gentleman admitted with significant skin lesions as well as vascular ischemic lesion of the left big toe is being closely monitored. Multiple consultants are following the patient. factor is positive. The patient also has left grade 2 ischemia or gangrene. positive. Past medical history reviewed. REVIEW OF SYSTEMS: CARDIOVASCULAR SYSTEM: No angina. RESPIRATION: As mentioned earlier. GI: As mentioned earlier. : No dysuria. NERVOUS SYSTEM: No numbness, weakness. CURRENT MEDICATIONS: Reviewed. They include Xanax, Tenormin, Tums, poly. Doses are reviewed. PHYSICAL EXAMINATION: Patient is alert, oriented x3. Pulse is 59, blood pressure 173/93, respirations 16, temperature 97.8, pulse ox 94% on room air. HEENT: Conjunctivae normal. NECK: No jugular venous distention. CARDIOVASCULAR: S1, S2 muffled. RESPIRATION: Breath sounds diminished at the bases. No rhonchi. No crackles. ABDOMEN: Soft, nontender. No mass palpable. LEGS: Left big toe with significant erythema, necrotic area, gangrene present. SKIN: Diffuse maculopapular rashes present on the upper limbs, lower limbs and also the palms. The truncal LABS: WBC 10.16, hemoglobin is 12.1. Creatinine has improved to 1.3. ASSESSMENT: 1. 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 2. Hypertension. 3. 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 4. Chronic kidney disease. 5. Gastroesophageal reflux disease. 6. Vitamin B12 deficiency. 7. Acute renal failure. RECOMMENDATIONS AND DISCUSSION: I recommend to continue current medications, continue with the monitoring, symptomatic treatment. Cultures are negative so far. A 2D echo has been done also, which was reviewed personally by me. It showed evidence of ejection fraction greater than 55% and minimal valvular abnormalities. No pericardial effusion. Otherwise, as mentioned earlier, rheumatoid factor has been positive. BERNARD and complements are negative. I would recommend BERNRAD titer. The ESR is 20 and the CRP is less than 0.5. We will continue to monitor. Prognosis guarded. Further recommendations to follow. The possibility of Henoch Schonlein purpura also should be considered. See orders for further details. MMODL / IJN: [id number] / [facility]
[2021-08-12 20:35] LABS: Cardiolipin Ab IgG Interp NEGATIVE (NEGATIVE); Cardiolipin IgA Antibody <2.0 U/mL
[2021-08-12 20:39] LABS: Cardiolipin Ab IgM Interp NEGATIVE (NEGATIVE); Cardiolipin IgM Antibody <1.5 U/mL
[2021-08-12 21:04] LABS: Appearance,Urine Clear (Clear); Bilirubin,Urine Negative (Negative); Blood,Urine Large (Negative); Color,Urine Yellow; Glucose,Urine (UA) Negative (Negative); Hyaline Casts,Urine 1 /lpf (0-2); Ketones,Urine Negative (Negative); Leukocyte Esterase,Urine Negative (Negative); Mucus,Urine Rare /hpf; Nitrite,Urine Negative (Negative); PH, Urine 6.5 (5.0-8.0); Protein,Urine 2+ (Negative); RBC,Urine 110 /hpf (0-5); Specific Gravity,Urine 1.018 (1.001-1.035); Urobilinogen,Urine <2.0 mg/dL (<2.0); WBC,Urine 6 /hpf (0-5)
[2021-08-13] MEDS: AMPICILLIN-SULBACTAM 3 GM in SODIUM CHLORIDE 0.9% 100 ML IVPB SCH ×4 (00:40→17:46)
[2021-08-13] MEDS: MORPHINE SULFATE 4 MG/ML SYRINGE IVP PRN ×6 (01:32→21:16)
[2021-08-13 04:23] LABS: Cyclic Citrull Pep IgG Unit <0.5 U/mL; Cyclic Citrullinated Pep IgG NEGATIVE (NEGATIVE)
[2021-08-13] MEDS: CALCIUM CARBONATE 500 MG CHEWABLE PO SCH ×4 (09:28→19:53)
[2021-08-13] MEDS: CHOLESTYRAMINE (WITH SUGAR) 4 GM PACKET PO SCH ×3 (09:29→19:36)
[2021-08-13] MEDS: PANTOPRAZOLE 40 MG TABLET PO SCH (09:29)
[2021-08-13] MEDS: ASPIRIN 81 MG PO SCH (09:29)
[2021-08-13] MEDS: MULTIVITAMINS, THERA 1 EACH TAB PO SCH (09:29)
[2021-08-13] MEDS: DIPHENOX-ATROP 2.5-0.025 MG 1 EACH TAB PO SCH ×3 (09:29→19:36)
[2021-08-13] MEDS: atenoloL 50 MG TAB PO SCH (09:30)
[2021-08-13] MEDS: MAGNESIUM OXIDE 400 MG TAB PO SCH ×2 (09:30→21:15)
[2021-08-13] MEDS: CHOLECALCIFEROL 25 MCG (1000 IU) TABLET PO SCH (09:30)
[2021-08-13] MEDS: CYANOCOBALAMIN 500 MCG TAB PO SCH (09:30)
[2021-08-13 11:04] LABS: Basophils # (A) 0.06 X 10*3/uL (0.00-0.10); Basophils % (A) 0.5 %; Eosinophils # (A) 0.68 X 10*3/uL (0.04-0.35); Eosinophils % (A) 5.7 %; HCT 38.3 % (39.6-50.0); HGB 11.7 g/dL (13.0-17.0); Immature Grans, Automated 0.6 %; Lymphocytes # (A) 2.49 X 10*3/uL (0.90-5.00); Lymphocytes % (A) 20.9 %; MCH 28.1 pg (27.0-32.0); MCHC 30.5 g/dL (32.0-37.0); MCV 92.1 fL (80.0-97.0); Mean Platelet Volume 10.2 fL (9.5-12.2); Monocytes % (A) 8.4 %; NRBC Per 100 WBC 0 /100 WBCS (0.0-0.0); Neutrophils # (A) 7.62 X 10*3/uL (1.80-7.70); Neutrophils % (A) 63.9 %; Platelet Count 306 X 10*3/uL (140-440); RBC 4.16 X 10*6/uL (4.40-5.60); WBC 11.92 X 10*3/uL (4.50-10.00)
--- NOTE | 2021-08-13 12:13 | P.PN ---
Subjective Progress Note Date: 08/13/21 Patient is seen and examined as follow-up. Rash is improving. Left great toe pain improving as well as discoloration. Patient's been afebrile. States he believes he was seen today by rheumatology. Objective - Vital Signs Vital signs: Vital Signs Temp 98.6 F 08/13/21 08:00 Pulse 66 08/13/21 09:32 Resp 18 08/13/21 09:45 BP 176/101 08/13/21 08:00 Pulse Ox 97 08/13/21 08:00 Intake & Output 08/12/21 08/13/21 08/13/21 18:59 06:59 18:59 Intake Total 240 Balance 240 Intake: Oral 240 Other: # Voids 3 1 2 - Exam General appearance: The patient is alert, oriented, appears in no acute distress. HET: Head is normocephalic and atraumatic. bowel sounds. Extremities: No lower extremity edema bilaterally. Palpable bilateral femoral, popliteal DP and PT pulses bilaterally. Diffuse nonraised rash on bilateral upper and lower extremities. Left great toe with ischemic changes to the mid and distal tip. Neurological: No focal deficits. Strength and sensation are grossly intact. - Labs CBC & Chem 7: 08/13/21 07:22 08/11/21 07:40 Labs: Abnormal Lab Results - Last 24 Hours (Table) 08/12/21 Range/Units 20:00 Urine Protein 2+ H (Negative) Urine Blood Large H (Negative) Urine RBC 110 H (0-5) /hpf Urine WBC 6 H (0-5) /hpf Urine Mucus Rare H (None) /hpf Microbiology - Last 24 Hours (Table) 08/08/21 18:21 Blood Culture - Preliminary Blood No Growth after 96 hours 08/08/21 18:21 Blood Culture - Preliminary Blood No Growth after 96 hours Assessment and Plan Assessment: 1. Left great toe ischemia 2. Rash 3. Former smoker Plan: 1. Arterial Doppler studies ordered and reviewed 2. Continue aspirin 81 mg daily 3. Agree with rheumatology consult for outpatient follow-up 4. Patient is stable from a vascular surgical standpoint to be discharged with follow-up. Likely will need amputation of the left great toe. Thank you for this consultation, vascular surgery will sign off at this time. The impression and plan of care has been dictated as directed. Dr. Cuppari I performed a history and examination of this patient, discussed the same with the dictator. I agree with the dictator's note ,documented as a scribe. Any additional findings or plans will be noted.
[2021-08-13 12:57] LABS: African American GFR (CKD) 62.7 (60.0-200.0); Albumin 3.6 g/dL (3.8-4.9); Albumin/Globulin Ratio 1.71 (1.60-3.17); Anion Gap 13.8 mmol/L (10.00-18.00); BUN/Creat Ratio 8.85 Ratio (12.00-20.00); Blood Urea Nitrogen 11.5 mg/dL (9.0-27.0); Calcium 6.4 mg/dL (8.7-10.3); Carbon Dioxide 27.2 mmol/L (20.0-27.5); Globulin 2.1 g/dL (1.6-3.3); Non-African American GFR(CKD) 54.1 (60.0-200.0); Potassium 3.5 mmol/L (3.5-5.5); Total Bilirubin 0.4 mg/dL (0.30-1.20); Total Protein 5.7 g/dL (6.2-8.2)
--- NOTE | 2021-08-13 15:08 | PN ---
PROGRESS NOTE DATE OF SERVICE: 08/13/2021 This 71-year-old gentleman who was admitted with acute vasculitis with significant ischemia of the left great toe is being closely monitored. No chest pain. No palpitations. Skin biopsy is being arranged. Past medical reviewed. REVIEW OF SYSTEMS: CARDIOVASCULAR SYSTEM: No angina or palpitations. RESPIRATION: As mentioned earlier. GI: As mentioned earlier. : No dysuria. NERVOUS SYSTEM: No numbness, weakness. CURRENT MEDICATIONS: Reviewed. They include Xanax, Unasyn, Tenormin and Tums. Doses are noted. PHYSICAL EXAMINATION: Patient alert and oriented x3. Pulse 71, blood pressure 167/91, respiration 18, temperature 98.6, pulse ox 97% on room air. HEENT: Conjunctivae normal. NECK: No jugular venous distention. CARDIOVASCULAR: S1, S2 muffled. RESPIRATION: Breath sounds diminished at the bases. A few scattered rhonchi. ABDOMEN: Soft, nontender. RIGHT FOOT: Gangrene present. Significant cellulitis also present. Significant present. LABS: WBC 11.92, hemoglobin 11.7, calcium 6.4. ASSESSMENT: 1. 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 2. Hypertension. 3. 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 4. Chronic kidney disease. 5. Gastroesophageal reflux disease. 6. Vitamin B12 deficiency. 7. Hypocalcemia. 8. Acute renal failure. RECOMMENDATIONS AND DISCUSSION: I recommend to continue current medications, continue with the monitoring, symptomatic treatment. Otherwise at this time I would recommend calcium supplementation. Continue to monitor. Check vitamin D levels also. Closely follow with Vascular Surgery. Further recommendations to follow. Possible angiography. MMODL / IJN: [id number] / [facility]
--- NOTE | 2021-08-13 15:56 | P.GSCN ---
History of Present Illness Consult date: 08/13/21 History of present illness: CHIEF COMPLAINT: Left great toe ischemia Reason for consult biopsy of skin rash HISTORY OF PRESENT ILLNESS: This is a 71-year-old male who presented to the hospital for evaluation of discoloration of his left great toe and skin rash. Patient diagnosed with ischemia of the right great toe. He has been seen by vascular surgery and likely patient will require amputation of the left great toe. But they have cleared him for discharge. Patient also has had a skin rash on the lower and upper extremities. He reports that he's had this rash for about 6 weeks. He has also had joint pain and swelling of joints. His rheumatoid factor is elevated. Rheumatology is on consult. Medical service has requested surgical consult for biopsy of skin rash. Patient reports that he has not had any biopsies completed of the skin rash. He reports that there has been some improvement in the skin rash. However within the last 6 weeks the rash do es sometimes improve and then worsens again. PAST MEDICAL HISTORY: GERD/Reflux, Hypertension PAST SURGICAL HISTORY: Appendectomy, Bowel Resection, Tubal Ligation MEDICATIONS: See list. ALLERGIES: See list. SOCIAL HISTORY: No illicit drug use. REVIEW OF SYSTEMS: CONSTITUTIONAL: Denies fever or chills. HEENT: Denies blurred vision, vision changes, or eye pain. Denies hemoptysis CARDIOVASCULAR: Denies chest pain or pressure. RESPIRATORY: No shortness of breath. GASTROINTESTINAL: See HPI for pertinent findings HEMATOLOGIC: Denies bleeding disorders. GENITOURINARY: Denies any blood in urine or increased urinary frequency. SKIN: Denies pruitis. Denies rash. PHYSICAL EXAM: VITAL SIGNS: Reviewed GENERAL: Well-developed in no acute distress. HEENT: No sclera icterus. Extraocular movements grossly intact. Moist buccal mucosa. Head is atraumatic, normocephalic. No nasal drainage. ABDOMEN: Soft. Nondistended. Nontender NEUROLOGIC: Alert and oriented. Cranial nerves II through XII grossly intact. Skin: Patient has a petechial rash on both the arms and the rash on his b ilateral thighs his prematurity resolved. LABORATORY DATA: WBC 11.9 2H Rajinder 11.7 platelets 306 Urine 2+ protein and large blood Creatinine 1.93 down to 1.3 IMAGING: ASSESSMENT: 1. Skin rash upper and lower extremities PLAN: -Patient had bedside left forearm punch biopsy completed by Dr. Pardo -Biopsy will be sent to pathology -Continue supportive care Thank you for this consultation Physician Flame Hardener note has been reviewed by physician. Signing provider agrees with the documented findings, assessment, and plan of care. Past Medical History Past Medical History: GERD/Reflux, Hypertension Additional Past Medical History / Comment(s): IBS, "HERNIATED DICS LOWER BACK" History of Any Multi-Drug Resistant Organisms: None Reported Past Surgical History: Appendectomy, Bowel Resection, Tubal Ligation Additional Past Surgical History / Comment(s): "35 YEARS AGO HAD BOWEL SX- REMOVED A FOOT OF INTESTINE D/T LOW GRADE INFECTION" Past Anesthesia/Blood Transfusion Reactions: No Reported Reaction Past Psychological History: Anxiety Smoking Status: Never smoker Past Alcohol Use History: Occasional Past Drug Use History: None Reported - Past Family History Mother Family Medical History: Diabetes Mellitus Additional Family Medical History / Comment(s): NIDDM Father Family Medical History: Hypertension Medications and Allergies Home Medications Medication Instructions Recorded Confirmed Type Omeprazole 20 mg PO DAILY 11/12/16 08/08/21 History Calcium Carbonate 500 mg PO QID 05/06/21 08/08/21 History Cholecalciferol [Vitamin D3 (25 50 mcg PO BID 05/06/21 08/08/21 History Mcg = 1000 Iu)] Cholestyramine/Aspartame 4 gm PO TID 05/06/21 08/08/21 History [Cholestyramine Light Packet] Cyanocobalamin (Vitamin B-12) 1,000 mcg PO DAILY 05/06/21 08/08/21 History [Vitamin B-12] Diphenox-Atrop 2.5-0.025 mg 3 tab PO TID 05/06/21 08/08/21 History [Lomotil] Magnesium Ox 420mg 420 mg PO BID 05/06/21 08/08/21 History Multivitamins, Thera [Multivitamin 1 tab PO DAILY 05/06/21 08/08/21 History (formulary)] atenoloL [Tenormin] 50 mg PO DAILY 05/06/21 08/08/21 History Allergies Allergy/AdvReac Type Severity Reaction Status Date / Time No Known Allergies Allergy Verified 08/08/21 20:50 Surgical - Exam Vital Signs Temp Pulse Resp BP Pulse Ox 97.6 F 74 18 129/85 99 08/08/21 15:48 08/08/21 15:48 08/08/21 15:48 08/08/21 15:48 08/08/21 15:48 Results - Labs 08/13/21 07:22 08/13/21 07:22 Abnormal Lab Results - Last 24 Hours (Table) 08/12/21 08/13/21 08/13/21 Range/Units 20:00 07:22 07:22 WBC 11.92 H (4.50-10.00) X 10*3/uL RBC 4.16 L (4.40-5.60) X 10*6/uL Hgb 11.7 L (13.0-17.0) g/dL Hct 38.3 L (39.6-50.0) % MCHC 30.5 L (32.0-37.0) g/dL Immature Gran # 0.07 H (0.00-0.04) X 10*3/uL Eosinophils # 0.68 H (0.04-0.35) X 10*3/uL Est GFR (CKD-EPI)NonAf 54.1 L (60.0-200.0) BUN/Creatinine Ratio 8.85 L (12.00-20.00) Ratio Calcium 6.4 L* (8.7-10.3) mg/dL Total Protein 5.7 L (6.2-8.2) g/dL Albumin 3.6 L (3.8-4.9) g/dL Urine Protein 2+ H (Negative) Urine Blood Large H (Negative) Urine RBC 110 H (0-5) /hpf Urine WBC 6 H (0-5) /hpf Urine Mucus Rare H (None) /hpf Microbiology - Last 24 Hours (Table) 08/08/21 18:21 Blood Culture - Preliminary Blood No Growth after 96 hours 08/08/21 18:21 Blood Culture - Preliminary Blood No Growth after 96 hours Diabetes panel 08/13/21 Range/Units 07:22 Sodium 139 (135-145) mmol/L Potassium 3.5 (3.5-5.5) mmol/L Chloride 98 (96-109) mmol/L Carbon Dioxide 27.2 (20.0-27.5) mmol/L BUN 11.5 (9.0-27.0) mg/dL Creatinine 1.3 (0.6-1.5) mg/dL Glucose 109 (70-110) mg/dL Calcium 6.4 L* (8.7-10.3) mg/dL AST 21 (14-35) U/L ALT 13 (10-49) U/L Alkaline Phosphatase 61 (41-126) U/L Total Protein 5.7 L (6.2-8.2) g/dL Albumin 3.6 L (3.8-4.9) g/dL Calcium panel 08/13/21 Range/Units 07:22 Calcium 6.4 L* (8.7-10.3) mg/dL Albumin 3.6 L (3.8-4.9) g/dL Pituitary panel 08/13/21 Range/Units 07:22 Sodium 139 (135-145) mmol/L Potassium 3.5 (3.5-5.5) mmol/L Chloride 98 (96-109) mmol/L Carbon Dioxide 27.2 (20.0-27.5) mmol/L BUN 11.5 (9.0-27.0) mg/dL Creatinine 1.3 (0.6-1.5) mg/dL Glucose 109 (70-110) mg/dL Calcium 6.4 L* (8.7-10.3) mg/dL Adrenal panel 08/13/21 Range/Units 07:22 Sodium 139 (135-145) mmol/L Potassium 3.5 (3.5-5.5) mmol/L Chloride 98 (96-109) mmol/L Carbon Dioxide 27.2 (20.0-27.5) mmol/L BUN 11.5 (9.0-27.0) mg/dL Creatinine 1.3 (0.6-1.5) mg/dL Glucose 109 (70-110) mg/dL Calcium 6.4 L* (8.7-10.3) mg/dL Total Bilirubin 0.40 (0.30-1.20) mg/dL AST 21 (14-35) U/L ALT 13 (10-49) U/L Alkaline Phosphatase 61 (41-126) U/L Total Protein 5.7 L (6.2-8.2) g/dL Albumin 3.6 L (3.8-4.9) g/dL
[2021-08-13] MEDS: SODIUM CHLORIDE 0.9% 1,000 ML IV SCH ×2 (17:39→21:16)
[2021-08-13] MEDS: CALCIUM CARB-VIT D 500 MG-5 MCG TAB PO SCH (17:40)
--- NOTE | 2021-08-13 21:50 | PN ---
PROGRESS NOTE DATE OF SERVICE: 08/13/2021. REASON FOR FOLLOWUP: 1. Left big toe gangrene. 2. Vasculitis. INTERVAL HISTORY: The patient is afebrile. The patient is currently breathing comfortably. Denies having any chest pain, shortness of breath or cough. No abdominal pain or any worsening pain to the left big toe area. PHYSICAL EXAMINATION: Blood pressure is 160/96, pulse of 66, temperature 98.2. He is 90% on room air. General description is an elderly male lying in bed in no distress. Respiratory system: Unlabored breathing, clear to auscultation anteriorly. Heart S1, S2. Regular rate and rhythm. Abdomen soft, no tenderness. Left big toe did have necrotic changes, redness improved. No drainage. DIAGNOSTIC IMPRESSION AND PLAN: 1. Patient with left big toe necrotic changes, more likely related to the possible ischemia, and concern for cellulitis, covered with Unasyn. 2. Patient with vasculitic rash status post biopsy, which will be followed. Continue supportive care. MMODL / IJN: [id number] / DENNIS
[2021-08-14] MEDS: AMPICILLIN-SULBACTAM 3 GM in SODIUM CHLORIDE 0.9% 100 ML IVPB SCH ×4 (00:20→17:52)
[2021-08-14] MEDS: MORPHINE SULFATE 4 MG/ML SYRINGE IVP PRN ×6 (01:30→22:21)
[2021-08-14 07:41] LABS: Hepatitis A Antibody IgM Nonreactive (Nonreactive); Hepatitis B Core IgM Nonreactive (Nonreactive); Hepatitis B Surface Antigen Nonreactive (Nonreactive); Hepatitis C IgG Antibody Nonreactive (Nonreactive)
[2021-08-14 09:23] LABS: African American GFR (CKD) 67.1 (60.0-200.0); Anion Gap 12.9 mmol/L (10.00-18.00); BUN/Creat Ratio 10.16 Ratio (12.00-20.00); Blood Urea Nitrogen 12.5 mg/dL (9.0-27.0); Calcium 6.1 mg/dL (8.7-10.3); Carbon Dioxide 28.6 mmol/L (20.0-27.5); Non-African American GFR(CKD) 57.9 (60.0-200.0); Potassium 3.6 mmol/L (3.5-5.5)
[2021-08-14] MEDS: MAGNESIUM OXIDE 400 MG TAB PO SCH ×2 (09:26→20:58)
[2021-08-14] MEDS: MULTIVITAMINS, THERA 1 EACH TAB PO SCH (09:27)
[2021-08-14] MEDS: ASPIRIN 81 MG PO SCH (09:27)
[2021-08-14] MEDS: CYANOCOBALAMIN 500 MCG TAB PO SCH (09:27)
[2021-08-14] MEDS: PANTOPRAZOLE 40 MG TABLET PO SCH (09:27)
[2021-08-14] MEDS: CHOLECALCIFEROL 25 MCG (1000 IU) TABLET PO SCH (09:27)
[2021-08-14] MEDS: DIPHENOX-ATROP 2.5-0.025 MG 1 EACH TAB PO SCH ×3 (09:27→21:00)
--- NOTE | 2021-08-14 09:43 | P.ARTDOP ---
Arterial Doppler LOWER EXTREMITY ARTERIAL DOPPLER: DATE OF SERVICE: 08/10/2021 Reason for study: Ischemic left great toe. Doppler waveforms: Multiphasic bilaterally throughout. Digital waveforms excellent on the right but blunted on the left.. Pulse volume recording: []. Pressure gradients: None of significance. Ankle-brachial indices: Greater than 1 bilaterally. Toe brachial indices: 0.92 on the right, 0.69 on the left Impression: The right is normal. On the left the only abnormality is a waveforms at the toe level and with a normal pressure findings are somewhat ambiguous. Proximally study is normal. Clinical correlation recommended..
[2021-08-14 09:53] LABS: Basophils # (A) 0.08 X 10*3/uL (0.00-0.10); Basophils % (A) 0.7 %; Eosinophils # (A) 0.78 X 10*3/uL (0.04-0.35); Eosinophils % (A) 6.9 %; HCT 32.9 % (39.6-50.0); HGB 10.3 g/dL (13.0-17.0); Immature Grans, Automated 0.3 %; Lymphocytes # (A) 2.12 X 10*3/uL (0.90-5.00); Lymphocytes % (A) 18.9 %; MCH 28.9 pg (27.0-32.0); MCHC 31.3 g/dL (32.0-37.0); MCV 92.2 fL (80.0-97.0); Mean Platelet Volume 10.4 fL (9.5-12.2); Monocytes # (A) 1.08 X 10*3/uL (0.20-1.00); Monocytes % (A) 9.6 %; NRBC Per 100 WBC 0 /100 WBCS (0.0-0.0); Neutrophils # (A) 7.15 X 10*3/uL (1.80-7.70); Neutrophils % (A) 63.6 %; Platelet Count 264 X 10*3/uL (140-440); RBC 3.57 X 10*6/uL (4.40-5.60); RDW 13.8 % (11.5-14.5); WBC 11.24 X 10*3/uL (4.50-10.00)
--- NOTE | 2021-08-14 10:22 | XR ---
Left wrist HISTORY: Pain and swelling 4 views the left wrist, no comparisons Chondrocalcinosis changes are present. Bone mineralization is reduced. Joint spaces and alignment are maintained. There is some marginal spurring of the carpometacarpal joint of the first digit. Possibl e geode formation present within the lunate and scaphoid. Calcifications noted volar and dorsal to th e wrist on the lateral exam. No evident fracture or dislocation. IMPRESSION: Correlate for crystal deposition arthropathy.
[2021-08-14] MEDS: CALCIUM CARB-VIT D 500 MG-5 MCG TAB PO SCH ×2 (10:36→17:51)
[2021-08-14] MEDS: atenoloL 50 MG TAB PO SCH (10:37)
[2021-08-14] MEDS: CHOLESTYRAMINE (WITH SUGAR) 4 GM PACKET PO SCH ×4 (10:37→21:00)
[2021-08-14] MEDS ORDERED: HYDROcodone/APAP 5-325MG 1 EACH TAB PO PRN (11:17)
[2021-08-14] MEDS ORDERED: methylPREDNISolone SOD SUCCI 125 MG/2 ML VIAL IV SCH (12:00)
--- NOTE | 2021-08-14 12:50 | P.PN ---
Subjective Progress Note Date: 08/14/21 CHIEF COMPLAINT: Left great toe ischemia HISTORY OF PRESENT ILLNESS: Surgical service following regards to patient's skin rash. Bedside biopsy on the left forearm completed yesterday. Pathology results pending. Patient is complaining of left wrist pain and swelling. He does report that he may have bent the wrist in bed. Otherwise no new complaints. PHYSICAL EXAM: VITAL SIGNS: Reviewed. GENERAL: Well-developed in no acute distress. HEENT: No sclera icterus. Extraocular movements grossly intact. Moist buccal mucosa. Head is atraumatic, normocephalic. ABDOMEN: Soft. Nondistended. Nontender. NEUROLOGIC: Alert and oriented. Cranial nerves II through XII grossly intact. Extremities: Left wrist is swollen. Left forearm surgical site clean and dry. No drainage. ASSESSMENT: 1. Skin rash upper and lower extremities PLAN: -Patient had bedside left forearm punch biopsy completed by Dr. Pardo -Pathology pending -Continue supportive care -Recommend left wrist x-ray. Discussed with medicine service. Physician Houseperson note has been reviewed by physician. Signing provider agrees with the documented findings, assessment, and plan of care. Objective - Vital Signs Vital signs: Vital Signs Temp 98.5 F 08/14/21 07:33 Pulse 71 08/14/21 07:33 Resp 18 08/14/21 08:00 BP 166/84 08/14/21 07:33 Pulse Ox 95 08/14/21 07:33 Intake & Output 08/13/21 08/14/21 08/14/21 18:59 06:59 18:59 Intake Total 240 180 Balance 240 180 Intake: Oral 240 180 Other: Voiding Method Toilet # Voids 1 1 1 # Bowel Movements 1 - Labs CBC & Chem 7: 08/14/21 05:19 08/14/21 05:19 Labs: Abnormal Lab Results - Last 24 Hours (Table) 08/13/21 08/14/21 08/14/21 Range/Units 07: 05:19 05:19 WBC 11.24 H (4.50-10.00) X 10*3/uL RBC 3.57 L (4.40-5.60) X 10*6/uL Hgb 10.3 L (13.0-17.0) g/dL Hct 32.9 L (39.6-50.0) % MCHC 31.3 L (32.0-37.0) g/dL Monocytes # 1.08 H (0.20-1.00) X 10*3/uL Eosinophils # 0.78 H (0.04-0.35) X 10*3/uL Carbon Dioxide 28.6 H (20.0-27.5) mmol/L Est GFR (CKD-EPI)NonAf 54.1 L 57.9 L (60.0-200.0) BUN/Creatinine Ratio 8.85 L 10.16 L (12.00-20.00) Ratio Calcium 6.4 L* 6.1 L* (8.7-10.3) mg/dL Total Protein 5.7 L (6.2-8.2) g/dL Albumin 3.6 L (3.8-4.9) g/dL Microbiology - Last 24 Hours (Table) 08/08/21 18:21 Blood Culture - Preliminary Blood No Growth after 120 hours 08/08/21 18:21 Blood Culture - Preliminary Blood No Growth after 120 hours
[2021-08-14] MEDS: KETOROLAC 30 MG/ML 1 ML VIAL IVP SCH ×2 (14:08→20:58)
--- NOTE | 2021-08-14 16:03 | PN ---
PROGRESS NOTE DATE OF SERVICE: 08/14/2021 REASON FOR FOLLOWUP: Left big toe gangrene and questionable vasculitis. INTERVAL HISTORY: The patient is afebrile, has been complaining of pain to the left foot area. Denies having any chest pain, shortness of breath. No abdominal pain or any worsening pain to the left big toe. PHYSICAL EXAMINATION: Blood pressure 142/77 with a pulse of 71, temperature 98.7. He is 98% on room air. General description is an elderly male lying in bed in no distress. Respiratory system: Unlabored breathing, clear to auscultation anteriorly. Heart S1, S2. Regular rate and rhythm. Abdomen soft, no tenderness. Left big toes remains to be covered no drainage. LABS: Hemoglobin is 10.2, white count 11.34, creatinine 1.2. DIAGNOSTIC IMPRESSION AND PLAN: Patient with left big toe necrotic changes in this patient who did have issues with vasculitis and possible ischemia to the left big toe. Cellulitis has been noticed. Vascular is planning for possible outpatient amputation. For now continue Unasyn and will transition to oral Augmentin on discharge. Continue supportive care. MMODL / IJN: [id number] / [facility]NIS
--- NOTE | 2021-08-14 17:32 | PN ---
PROGRESS NOTE DATE OF SERVICE: 08/14/2021 This 71-year-old gentleman admitted with rash and toe ischemia also has developed significant left knee joint pain at this time. The patient is being closely monitored. The patient received one dose of steroids. The patient's skin biopsy has been done and vasculitic workup is also in progress. All the blood work except rheumatoid factor is negative so far. As mentioned earlier, the biopsies of the rash taken by Surgery are pending at this time. Dr. Luz has seen the patient and recommended a kidney biopsy, possibly before steroids, but the patient has significant pain and I discussed with Dr. Champagne. Aspirin has to be stopped at least a week before Radiology will do the kidney biopsy, so I will stop the aspirin and will try to control the pain and swelling with Toradol currently, and hold off the steroids for now and continue to monitor. Otherwise, the patient is being closely monitored. Past medical history reviewed. REVIEW OF SYSTEMS: CARDIOVASCULAR SYSTEM: No angina. RESPIRATION: As mentioned earlier. GI: As mentioned earlier. : No dysuria. NERVOUS SYSTEM: No numbness, weakness. CURRENT MEDICATIONS: Reviewed. They include [place], Xanax, Unasyn, Os-Chris. Doses and other medications are reviewed. PHYSICAL EXAMINATION: Patient alert and oriented x3. Pulse is 71, blood pressure 143/76, respiration 18, temperature 98.7, pulse ox 92% on room air. HEENT: Conjunctivae normal. NECK: No jugular venous distention. CARDIOVASCULAR: S1, S2 muffled. RESPIRATION: Breath sounds diminished at the bases. No rhonchi. No crackles. ABDOMEN: Soft. LEGS: Significant rash present of the legs. Left big toe ulcer present. LABS: WBC 11.24, and eosinophils of 0.78. Calcium 6.1. UA showed mostly RBCs. ASSESSMENT: 1. 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 2. Diffuse skin rashes, status post skin biopsy. 3. Possible hematuria; possibly acute glomerulonephritis. 4. Hypertension. 5. 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 6. History of kidney disease. 7. Chronic kidney disease, stage 3. 8. Gastroesophageal reflux disease. 9. Vitamin B12 deficiency. 10.Hypocalcemia. 11.Acute renal failure. RECOMMENDATIONS AND DISCUSSION: I recommend to continue current medications, continue with the monitoring, symptomatic treatment. We will control to control the pain . Discussed with Dr. Luz and Dr. Champagne at length. Dr. Luz's input appreciated. Guarded prognosis. Further recommendations to follow. Hepatitis panel was also negative and rheumatology workup also was basically negative except for significantly possible rheumatoid factor. Continue to monitor. Further recommendations to follow. MMODL / IJN: [id number] / MTDD
--- NOTE | 2021-08-14 20:24 | CONS ---
CONSULTATION REASON FOR CONSULT: Vasculitis/proteinuria. HISTORY OF PRESENT ILLNESS: The patient is a 71-year-old male who was admitted to the hospital on 08/08/2020 with complaints of generalized rash and left great toe discoloration. This has been turning purplish black. The patient denied any previous history of such rashes. Current rash has been there for about 4-5 weeks prior to admission. History of a flu shot recently, Covid 19 PCR is negative. The patient's rash seems to have improved. However, he has noticed to have swelling of his joints. Currently, his left wrist is significantly edematous and painful. The patient has already had a skin biopsy done yesterday, results of which are currently pending. The patient's serum creatinine has been at 1.3- 1.2 mg/dL. Initially it was at 1.9 on admission. He has been maintained on IV fluids. Patient had serologies done which were all negative including BERNARD, ANCA, anti cardiolipin antibodies, complements and rheumatoid factor was only at 35. The patient is currently voiding. UA shows 3+ protein on August 08 and on August 12, there was 2+ protein noted. No significant WBCs and RBCs 110. There were plans for possible kidney biopsy. However, it looks like patient was recently on aspirin which was started on 08/10/2021. PAST MEDICAL HISTORY: Gastroesophageal reflux disease, hypertension, IBS. PAST SURGICAL HISTORY: Appendectomy, bowel resection, tubal ligation. SOCIAL HISTORY: Negative for smoking, drug abuse or alcohol abuse. MEDICATIONS: Medications prior to admission included omeprazole, calcium carbonate, vitamin B12, Lomotil, magnesium, multivitamins, atenolol. ALLERGIES: None. EXAMINATION: Patient is currently comfortable, awake, alert, oriented x3. He is not in any acute distress. Blood pressure is 143/77, heart rate of 71 per minute. He is afebrile. Examination of the heart S1, S2. Examination of the lungs, bilateral breath sounds are heard. Abdomen is soft, nontender. Examination of lower extremities shows no significant edema. There is a fading rash noted. The patient has significant swelling of his left wrist. MAIL ROOM CLERK exam is grossly intact. LABS: Show UA showing 3+ protein on August 08 and then 2+ protein on August 12. All serologies are negative including BERNARD, ANCA, C3, C4, anti cardiolipin antibodies. Hemoglobin was 10.3, serum creatinine 1.2 today. Sodium 141, potassium 3.6. ASSESSMENT: 1. Proteinuria with hematuria with possible underlying vasculitis. The patient will benefit from kidney biopsy. However, today. We will discuss with the radiology if they can perform a kidney biopsy sooner than 7 days given the need for IV steroids and the fact that the biopsy findings might change with significant steroid use. 2. Acute kidney injury, likely prerenal on initial admission, currently improved. 3. Left wrist swelling and pain, can try Toradol with close monitoring of renal function. 4. Rash status post biopsy. Pathology is pending. 5. Hypocalcemia. Check vitamin D level. PLAN: Check 25 hydroxy vitamin D. DC aspirin. Can try Toradol for pain. The patient will need a kidney biopsy. We will discuss with Radiology if they can perform it sooner than 7 days of avoiding of aspirin. Thank you for this consultation. We will continue to follow the patient with you during his hospitalization. MMODL / IJN: [id number] /
[2021-08-15] MEDS: AMPICILLIN-SULBACTAM 3 GM in SODIUM CHLORIDE 0.9% 100 ML IVPB SCH ×3 (00:48→12:57)
[2021-08-15] MEDS: KETOROLAC 30 MG/ML 1 ML VIAL IVP SCH ×2 (02:00→05:35)
[2021-08-15 07:41] VITALS: RESP 17
[2021-08-15] MEDS: DIPHENOX-ATROP 2.5-0.025 MG 1 EACH TAB PO SCH (08:18)
[2021-08-15] MEDS: CHOLECALCIFEROL 25 MCG (1000 IU) TABLET PO SCH (08:18)
[2021-08-15] MEDS: MAGNESIUM OXIDE 400 MG TAB PO SCH (08:18)
[2021-08-15] MEDS: CYANOCOBALAMIN 500 MCG TAB PO SCH (08:18)
[2021-08-15] MEDS: atenoloL 50 MG TAB PO SCH (08:19)
[2021-08-15] MEDS: PANTOPRAZOLE 40 MG TABLET PO SCH (08:19)
[2021-08-15] MEDS: CALCIUM CARB-VIT D 500 MG-5 MCG TAB PO SCH (08:19)
[2021-08-15] MEDS: MULTIVITAMINS, THERA 1 EACH TAB PO SCH (08:20)
[2021-08-15] MEDS: CHOLESTYRAMINE (WITH SUGAR) 4 GM PACKET PO SCH (08:20)
[2021-08-15] MEDS: MORPHINE SULFATE 4 MG/ML SYRINGE IVP PRN (08:28)
[2021-08-15 11:04] LABS: Basophils # (A) 0.01 X 10*3/uL (0.00-0.10); Basophils % (A) 0.1 %; Eosinophils # (A) 0.01 X 10*3/uL (0.04-0.35); Eosinophils % (A) 0.1 %; HCT 35.8 % (39.6-50.0); HGB 10.8 g/dL (13.0-17.0); Immature Grans, Automated 0.5 %; Lymphocytes # (A) 1.36 X 10*3/uL (0.90-5.00); Lymphocytes % (A) 9.6 %; MCH 27.8 pg (27.0-32.0); MCHC 30.2 g/dL (32.0-37.0); Mean Platelet Volume 10.5 fL (9.5-12.2); Monocytes # (A) 0.81 X 10*3/uL (0.20-1.00); Monocytes % (A) 5.7 %; NRBC Per 100 WBC 0 /100 WBCS (0.0-0.0); Neutrophils # (A) 11.95 X 10*3/uL (1.80-7.70); Platelet Count 288 X 10*3/uL (140-440); RBC 3.89 X 10*6/uL (4.40-5.60); RDW 13.8 % (11.5-14.5); WBC 14.21 X 10*3/uL (4.50-10.00)
--- NOTE | 2021-08-15 11:34 | P.OP ---
Date of Procedure: 08/13/21 Preoperative Diagnosis: Vasculitis Postoperative Diagnosis: Defer to pathology Procedure(s) Performed: Left arm skin punch biopsy Anesthesia: local Surgeon: Arya Pardo Estimated Blood Loss (ml): 1 Pathology: other (Skin biopsy) Condition: stable Disposition: floor Description of Procedure: Patient's arm was placed on his bedside table. The skin on his left forearm was prepped and draped usual sterile fashion. The skin was anesthetized 1% local Xylocaine. Using the 4 mm punch biopsy a skin punch biopsy was performed. The skin defect was closed with 3-0 nylon suture. Patient Destiny the procedure well.
[2021-08-15 11:53] LABS: Albumin 3.2 g/dL (3.8-4.9); Albumin/Globulin Ratio 1.6 (1.60-3.17); Anion Gap 13.9 mmol/L (10.00-18.00); BUN/Creat Ratio 12.43 Ratio (12.00-20.00); Blood Urea Nitrogen 16.9 mg/dL (9.0-27.0); Calcium 6.1 mg/dL (8.7-10.3); Carbon Dioxide 26.3 mmol/L (20.0-27.5); Non-African American GFR(CKD) 51.3 (60.0-200.0); Potassium 3.5 mmol/L (3.5-5.5); Total Bilirubin 0.5 mg/dL (0.30-1.20); Total Protein 5.2 g/dL (6.2-8.2)
[2021-08-15 11:59] LABS: African American GFR (CKD) 59.4 (60.0-200.0)
[2021-08-15] MEDS ORDERED: predniSONE 20 MG TAB PO STA (12:03)
[2021-08-15 13:33] VITALS: BMI 27.2
--- NOTE | 2021-08-15 14:22 | P.PN ---
Subjective Progress Note Date: 08/15/21 CHIEF COMPLAINT: Left great toe ischemia HISTORY OF PRESENT ILLNESS: Surgical service following regards to patient's skin rash. Patient is status post biopsy of the left forearm. Pathology results show actinically damaged benign skin with mild perivascular dermatitis. Patient has no new complaints reports that his pain in the left wrist is slightly better. He was given oral prednisone and Toradol. Afebrile. WBC is 14.21. Patient is also followed by nephrology. Patient seen and examined with Dr. nicholas PHYSICAL EXAM: VITAL SIGNS: Reviewed. GENERAL: Well-developed in no acute distress. HEENT: No sclera icterus. Extraocular movements grossly intact. Moist buccal mucosa. Head is atraumatic, normocephalic. ABDOMEN: Soft. Nondistended. Nontender. NEUROLOGIC: Alert and oriented. Cranial nerves II through XII grossly intact. Extremities: Left wrist is swollen. Left forearm surgical site clean and dry. No drainage. ASSESSMENT: 1. Skin rash upper and lower extremities PLAN: -Patient has been informed of pathology results -Continue supportive care Physician Blood Tester note has been reviewed by physician. Signing provider agrees with the documented findings, assessment, and plan of care. Objective - Vital Signs Vital signs: Vital Signs Temp 97.4 F L 08/15/21 07:41 Pulse 68 08/15/21 07:41 Resp 17 08/15/21 08:30 BP 157/80 08/15/21 07:41 Pulse Ox 97 08/15/21 07:41 Intake & Output 08/14/21 08/15/21 08/15/21 18:59 06:59 18:59 Intake Total 420 118 Balance 420 118 Weight 98.883 kg Intake: Oral 420 118 Other: Voiding Method Toilet Toilet # Voids 1 3 - Labs CBC & Chem 7: 08/15/21 06:35 08/15/21 06:35 Labs: Abnormal Lab Results - Last 24 Hours (Table) 08/12/21 08/15/21 08/15/21 Range/Units 06:53 06:35 06:35 WBC 14.21 H (4.50-10.00) X 10*3/uL RBC 3.89 L (4.40-5.60) X 10*6/uL Hgb 10.8 L (13.0-17.0) g/dL Hct 35.8 L (39.6-50.0) % MCHC 30.2 L (32.0-37.0) g/dL Immature Gran # 0.07 H (0.00-0.04) X 10*3/uL Neutrophils # 11.95 H (1.80-7.70) X 10*3/uL Eosinophils # 0.01 L (0.04-0.35) X 10*3/uL Est GFR (CKD-EPI)AfAm 59.4 L (60.0-200.0) Est GFR (CKD-EPI)NonAf 51.3 L (60.0-200.0) Glucose 168 H (70-110) mg/dL Calcium 6.1 L* (8.7-10.3) mg/dL Total Protein 5.2 L (6.2-8.2) g/dL Albumin 3.2 L (3.8-4.9) g/dL Vitamin D 25-Hydroxy 17.8 L (30.0-100.0) ng/mL Complement C5 69 H (29 - 53) U/mL Microbiology - Last 24 Hours (Table) 08/08/21 18:21 Blood Culture - Final Blood No Growth after 144 hours 08/08/21 18:21 Blood Culture - Final Blood No Growth after 144 hours
[2021-08-15 14:29] VITALS: BP 168/98; PULSE 69; TEMP 97.9
--- NOTE | 2021-08-15 15:52 | PN ---
PROGRESS NOTE DATE OF SERVICE: 08/15/2021 REASON FOR FOLLOW UP: 1. Left big toe gangrene question cellulitis. 2. Rash. INTERVAL HISTORY: The patient is afebrile. He is currently breathing comfortably. The patient did mention the pain and discomfort to the left wrist area has slightly decreased. No chest pain, shortness of breath, cough, no abdominal pain, or any worsening pain to the left big toe. PHYSICAL EXAMINATION: Blood pressure 157/80 with a pulse of 78, temperature 97.5, he is 93% general description is an an elderly male up in the bed in no distress. Respiratory system: Unlabored breathing, clear to auscultation anteriorly. Heart S1, S2. Regular rate and rhythm. Abdomen soft, no tenderness. Left big toe is currently dressed. No drainage on the dressing. LABS: Hemoglobin is 10.1, white count 14.2. Creatinine 1.4. DIAGNOSTIC IMPRESSION AND PLAN: Patient with left great toe gangrene in this patient with possible vasculitis. The patient empirically covered with Unasyn that will be continued for now while monitoring clinical course closely. Continue supportive care. MMODL / IJN: [id number] / DENNIS
--- NOTE | 2021-08-15 16:07 | PN ---
PROGRESS NOTE Patient is seen for followup for acute kidney injury, proteinuria, possible underlying vasculitis. The patient has received one dose of IV steroids. He was switched over to Toradol yesterday as the kidney biopsy could not be done right away as the patient had been on aspirin, however, Toradol was held today and overall patient states he is feeling better. Skin biopsy is not back yet. PHYSICAL EXAMINATION: On examination today, blood pressure 168/98, heart rate 69 per minute. He is afebrile. Examination of the heart S1, S2. Examination of the lungs, bilateral breath sounds are heard. Abdomen is soft, nontender. Examination of lower extremities shows discoloration of the left big toe seems to be slowly improving. No edema is noted. GUN FERTILIZER exam grossly intact. Left wrist swelling is down. LAB: Show sodium 138, potassium 3.5, chloride 98, BUN of 16.9, creatinine 1.4. ASSESSMENT: 1. Acute kidney injury on initial admission, currently improved. Serum creatinine slightly high again due to NSAIDs. We will discontinue the Toradol. 2. Proteinuria with likely underlying vasculitis. I will discuss with Radiology again regarding timing of kidney biopsied. Toradol and aspirin are currently on hold. In the meantime, I believe patient will need to start steroids. His toe appears to be better as well as the wrist. Urine protein creatinine ratio was ordered yesterday, is still pending. All serologies are currently negative. Check urine immunofixation as well. 3. Generalized rash, most likely associated with underlying vasculitis, currently improved. 4. Vitamin D deficiency and hypocalcemia. PLAN: DC Toradol. Continue off aspirin. Discussed timing of biopsy with Radiology. The patient will need to resume the steroids and followup on the skin biopsy as well. Start vitamin D. MMODL / IJN: [id number] /
--- NOTE | 2021-08-15 17:01 | P.CONS ---
History of Present Illness - Reason for Consult Consult date: 08/13/21 VASCULITIS Past Medical History Past Medical History: GERD/Reflux, Hypertension Additional Past Medical History / Comment(s): IBS, "HERNIATED DICS LOWER BACK" History of Any Multi-Drug Resistant Organisms: None Reported Past Surgical History: Appendectomy, Bowel Resection, Tubal Ligation Additional Past Surgical History / Comment(s): "35 YEARS AGO HAD BOWEL SX- REMOVED A FOOT OF INTESTINE D/T LOW GRADE INFECTION" Past Anesthesia/Blood Transfusion Reactions: No Reported Reaction Past Psychological History: Anxiety Smoking Status: Never smoker Past Alcohol Use History: Occasional Past Drug Use History: None Reported - Past Family History Mother Family Medical History: Diabetes Mellitus Additional Family Medical History / Comment(s): NIDDM Father Family Medical History: Hypertension Medications and Allergies Home Medications Medication Instructions Recorded Confirmed Type Omeprazole 20 mg PO DAILY 11/12/16 08/08/21 History Cholecalciferol [Vitamin D3 (25 50 mcg PO BID 05/06/21 08/08/21 History Mcg = 1000 Iu)] Cholestyramine/Aspartame 4 gm PO TID 05/06/21 08/08/21 History [Cholestyramine Light Packet] Cyanocobalamin (Vitamin B-12) 1,000 mcg PO DAILY 05/06/21 08/08/21 History [Vitamin B-12] Diphenox-Atrop 2.5-0.025 mg 3 tab PO TID 05/06/21 08/08/21 History [Lomotil] Magnesium Ox 420mg 420 mg PO BID 05/06/21 08/08/21 History Multivitamins, Thera [Multivitamin 1 tab PO DAILY 05/06/21 08/08/21 History (formulary)] atenoloL [Tenormin] 50 mg PO DAILY 05/06/21 08/08/21 History Amoxic-Pot Clav 875-125Mg 1 tab PO Q12HR 10 Days #20 tab 08/15/21 Rx [Augmentin 875-125] Calcium Carb-Vit D 500Mg-5Mcg 1 each PO TID 30 Days #90 tablet 08/15/21 Rx [Oscal 500+D 5 Mcg (200 Iu)] Pantoprazole [Protonix] 40 mg PO BID 30 Days #60 tab 08/15/21 Rx predniSONE 30 mg PO BID #180 tab 08/15/21 Rx Allergies Allergy/AdvReac Type Severity Reaction Status Date / Time No Known Allergies Allergy Verified 08/08/21 20:50 Physical Exam Vitals: Vital Signs Temp Pulse Pulse Resp BP Pulse Ox 08/15/21 14:00 97.9 F 69 17 168/98 93 L 08/15/21 08:30 17 08/15/21 07:41 97.4 F L 68 17 157/80 97 08/15/21 00:45 98.5 F 75 16 151/78 92 L 08/14/21 19:49 98.5 F 71 18 188/91 93 L Intake and Output 08/15/21 08/15/21 08/15/21 06:59 14:59 22:59 Intake Total 236 Balance 236 Intake: Oral 236 Other: Voiding Method Toilet # Voids 3 Weight 98.883 kg Results CBC & Chem 7: 08/15/21 06:35 08/15/21 06:35 Labs: Abnormal Lab Results - Last 24 Hours (Table) 08/12/21 08/15/21 08/15/21 Range/Units 06:53 06:35 06:35 WBC 14.21 H (4.50-10.00) X 10*3/uL RBC 3.89 L (4.40-5.60) X 10*6/uL Hgb 10.8 L (13.0-17.0) g/dL Hct 35.8 L (39.6-50.0) % MCHC 30.2 L (32.0-37.0) g/dL Immature Gran # 0.07 H (0.00-0.04) X 10*3/uL Neutrophils # 11.95 H (1.80-7.70) X 10*3/uL Eosinophils # 0.01 L (0.04-0.35) X 10*3/uL Est GFR (CKD-EPI)AfAm 59.4 L (60.0-200.0) Est GFR (CKD-EPI)NonAf 51.3 L (60.0-200.0) Glucose 168 H (70-110) mg/dL Calcium 6.1 L* (8.7-10.3) mg/dL Total Protein 5.2 L (6.2-8.2) g/dL Albumin 3.2 L (3.8-4.9) g/dL Vitamin D 25-Hydroxy 17.8 L (30.0-100.0) ng/mL Complement C5 69 H (29 - 53) U/mL Microbiology - Last 24 Hours (Table) 08/08/21 18:21 Blood Culture - Final Blood No Growth after 144 hours 08/08/21 18:21 Blood Culture - Final Blood No Growth after 144 hours Assessment and Plan (1) Vasculitis Status: Acute Code(s): I77.6 - ARTERITIS, UNSPECIFIED SNOMED Code(s): 77094909 Plan: This is a 71-year-old male seen at [facility] as an inpatient. Rheumatology was consulted for possible vasculitis. 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 6 weeks back he noticed purplish discoloration of the left big toe and he has seen vascular surgery and per the patient the Doppler was negative and they intend to just watch him. The patient denies any history of diabetes. On exam he does seem to have some swelling in his ankles and wrists and he does have diffuse patchy rash on his arms and legs which are disappearing and he does have an ischemic with possible gangrene left big toe. Other than a mildly positive rheumatoid factor his serologies were negative for BERNARD, ANCA . He did have 3+ proteinuria with an elevated creatinine of 1.3. The patient has not been given any steroids. I recommend the patient get a nephrology consult and get a kidney biopsy and then could be started on IV steroids. I do have suspicion that this could be a systemic vasculitis affecting his kidneys and causing ischemia to his left big toe. I will see the patient as a follow-up and will discuss further immunosuppressive therapy after biopsy results are back. Time with Patient: Greater than 30
--- NOTE | 2021-08-15 21:37 | DS ---
DISCHARGE SUMMARY FINAL DIAGNOSES: 1. 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 2. Diffuse contractures, status post skin biopsy. 3. Possible hematuria, possible acute glomerulonephritis. 4. Hypertension. 5. Possible henoch schonlein purpura. 6. History of kidney disease. 7. History of chronic kidney disease stage 3 baseline. 8. Gastroesophageal reflux disease. 9. Vitamin B12 deficiency. 10.Hypocalcemia. 11.Acute renal failure. DISCHARGE DISPOSITION: Patient will be discharged in stable condition with guarded prognosis. Total time 35 minutes. Discharge cleared by multiple consultants. The patient is keen on going home. HISTORY OF PRESENT ILLNESS: This 71-year-old gentleman with a past medical problems admitted with acute bilateral diffuse skin rashes and as well as gangrenous changes of left big toe. The patient was monitored closely. The patient has multiple factors positive but an array of past for the vasculitic vasculitis and rheumatoid disease was negative including anti CCP. The patient was also seen multiple consultants in consultation with Dr. Luz and as well as Dr. Champagne, Dr. Luz and Dr. Champagne both recommended a renal biopsy before starting the intravenous steroids, but unfortunately the patient is on aspirin and the intervention has to wait for about a week before having the biopsy done. In the meanwhile Dr. Champagne recommend the patient be started on p.o. steroids and the patient being discharged in stable condition with further plans to follow up in the outpatient. The patient was also seen by vascular surgery and recommended outpatient followup. The patient is keen on going home. The rash is subsiding at this time. Skin biopsy was done by Dr. Pardo and a biopsy pulse is also being arranged. On exam vitals stable. Cardiovascular S1, S2. Abdomen soft. Faint rash present. DISCHARGE MEDICATIONS/MEDICATIONS: 1. Diet is cardiac diet. 2. Activity limited until followup. 3. Follow up with Dr. Núñez in 2-3 days. 4. Follow up with Dr. Mena vascular surgery as mentioned. 5. Follow up with Dr. Luz in 1 week. 6. Follow up with Dr. Champagne in 1 week and intervention radiology for kidney biopsy. MEDICATIONS: 1. Cholestyramine 4 g p.o. t.i.d. 2. Diphenoxylate p.r.n. 3. Magnesium. 4. Vitamins 1 p.o. daily. 5. Omeprazole 20 mg daily. 6. Tenormin 50 mg daily. 7. Vitamin B2 1000 mcg p.o. daily. 8. Vitamin D3 50 mg p.o. b.i.d. 9. Augmentin 875 mg p.o. b.i.d. for 10 days. 10.Calcium carbonate. 11.Os-Chris with vitamin D p.o. t.i.d. 12.Prednisone 30 mg p.o. b.i.d. after food. Continue till seen by Dermatology and further adjustments as an outpatient. 13.Protonix 40 mg p.o. b.i.d. Once again, the patient discharged in stable with guarded prognosis. MMODL / IJN: [id number] / MTDMelanie
[2021-08-16] MEDS ORDERED: CHOLECALCIFEROL 25 MCG (1000 IU) TABLET PO SCH (09:00)
== END 2021-08-15 16:25 | disposition home or self-care (01) | DRG 546 ==
LOC: EC 15:18 → 6NMEDSUR 20:35 → OBSVTOIN 08-10 09:44 → 6NMEDSUR 08-13 22:05
PROVIDERS: ADMIT Internal Medicine; ATTEND Internal Medicine
PROC: 0HBEXZX Excision of Left Lower Arm Skin, External Approach, Diagnostic (ICD-10-PCS; principal; 2021-08-15)
DX: I77.6 Arteritis, unspecified (principal); I96 Gangrene, not elsewhere classified; N17.9 Acute kidney failure, unspecified; E53.8 Deficiency of other specified B group vitamins; E55.9 Vitamin D deficiency, unspecified; E78.5 Hyperlipidemia, unspecified; Z20.822 Contact with and (suspected) exposure to COVID-19; E83.51 Hypocalcemia; F41.9 Anxiety disorder, unspecified; I12.9 Hypertensive chronic kidney disease with stage 1 through stage 4 chronic kidney disease, or unspecified chronic kidney disease; K21.9 Gastro-esophageal reflux disease without esophagitis; L30.9 Dermatitis, unspecified; M06.9 Rheumatoid arthritis, unspecified; N18.30 Chronic kidney disease, stage 3 unspecified; Z79.82 Long term (current) use of aspirin; Z79.899 Other long term (current) drug therapy; Z82.49 Family history of ischemic heart disease and other diseases of the circulatory system; Z83.3 Family history of diabetes mellitus; Z85.828 Personal history of other malignant neoplasm of skin; Z87.891 Personal history of nicotine dependence; L03.032 Cellulitis of left toe
CPT/HCPCS: 36415; 80048; 80053; 80074; 81001; 81241; 82150; 82306; 82330; 82565; 82570; 82652; 83605; 84156; 84550; 85025; 85610; 85652; 85730; 86038; 86140; 86147; 86160; 86162; 86200; 86255; 86335; 86431; 87040; 87635; 88305; 93306; 93922; 96365; 96366; 96375; 99285

== ENCOUNTER → 2022-01-10 | Day surgery (SDC) | payer MEDICARE, OTHER ==
[2022-01-09 10:13] VITALS: BMI 27.5
[~2022-01-10] MED LIST: LACTATED RINGERS 1,000 ML IV SCH; LIDOCAINE 1% (10MG/ML) FOR IV START INTRADERMA PRN; LIDOCAINE 2% INJ 20 MG/ML (2 ML VIAL) ONE; PROPOFOL 10 MG/ML 20 ML VIAL IV ONE
[2022-01-10 09:50] VITALS: RESP 18; TEMP 97.4
[2022-01-10 09:59] LABS: Glucose,Whole Blood 102 mg/dL (75-99)
[2022-01-10 11:36] VITALS: BP 134/74; PULSE 98
--- NOTE | 2022-01-10 11:37 | P.PCN ---
Date of Procedure: 01/10/22 Procedure(s) Performed: BRIEF HISTORY: Patient is a 71-year-old pleasant white male scheduled for an elective colonoscopy as a part of surveillance of long-standing history of Crohn's disease. He believes he was diagnosed with Crohn's disease approximately 30 years ago when he underwent terminal ileal resection but after that he was in remission. About 3 years ago he presented with foreign body obstruction and underwent another small bowel resection and was diagnosed with Crohn's disease. Recently has been on steroids for underlying chronic liver disease and since then his abdominal pain and bowel movements have been much better. He scheduled for a surveillance colonoscopy today. PROCEDURE PERFORMED: Colonoscopy with biopsies. PREOPERATIVE DIAGNOSIS: History of Crohn's disease status post terminal ileal and right colon resection 3 years ago.. IV sedation per Anesthesia. PROCEDURE: After informed consent was obtained, the patient, was brought into the endoscopy unit. IV sedation was administered by Anesthesia under continuous monitoring. Digital rectal examination was normal. Initially the Olympus CF-160 flexible video colonoscope was then inserted in the rectum, gradually advanced into the right colon with ileocolic anastomosis was visualized that appeared normal. Anastomosis was widely patent and the terminal ileum was intubated which appeared normal. There are scattered erosions noted at the anastomosis which was biopsied. Mucosa of the, transverse colon, descending colon, sigmoid colon, and rectum appeared normal. Retroflexion was performed in the rectum and no lesions were seen. The patient tolerated the procedure well. IMPRESSION: Scattered erosions at the ileocolic anastomosis but no evidence of anastomotic stricture. Rest of the colon appeared normal RECOMMENDATIONS: Findings of this examination were discussed with the patient as his family. He was advised to follow with the biopsy results. He'll be seen in office in 3-4 weeks.. He was advised to call if he has any flareup of the diarrhea.
== END ==
LOC: ORWHC2ENDO 09:14
PROVIDERS: ATTEND Internal Medicine Gastroenterology
DX: K91.89 Other postprocedural complications and disorders of digestive system (principal); K50.90 Crohn's disease, unspecified, without complications; Z98.0 Intestinal bypass and anastomosis status; Z90.49 Acquired absence of other specified parts of digestive tract; I10 Essential (primary) hypertension; K76.9 Liver disease, unspecified; R00.0 Tachycardia, unspecified; N28.9 Disorder of kidney and ureter, unspecified; K21.9 Gastro-esophageal reflux disease without esophagitis; Z87.891 Personal history of nicotine dependence; Z79.899 Other long term (current) drug therapy
CPT/HCPCS: 88305; 45380; J2704; J2001

== ENCOUNTER 2022-10-20 05:41 | Day surgery (SDC) | payer OTHER ==
[2022-10-15 15:16] VITALS: BMI 27.8
[2022-10-20] MEDS ORDERED: NITROGLYCERIN SL TABS 0.4 MG TAB SUBLINGUAL PRN (05:49)
[2022-10-20] MEDS ORDERED: HEPARIN SODIUM,PORCINE 2,500 UNIT in SODIUM CHLORIDE 0.9% 250 ML IRRIGATION PRN (05:49)
[2022-10-20] MEDS ORDERED: ALPRAZolam 0.25 MG TAB PO PRN (05:49)
[2022-10-20] MEDS ORDERED: ALPRAZolam 0.5 MG TAB PO PRN (05:49)
[2022-10-20] MEDS ORDERED: HEPARIN SODIUM,PORCINE 10,000 UNIT in SODIUM CHLORIDE 0.9% 1,000 ML IRRIGATION PRN (05:49)
[2022-10-20] MEDS ORDERED: SODIUM CHLORIDE 0.9% 1,000 ML in EMPTY BAG 1 BAG IV ONE (06:00)
[2022-10-20] MEDS ORDERED: SODIUM CHLORIDE 0.9% 1,000 ML IV ONE (06:05)
[2022-10-20 06:28] VITALS: RESP 16; TEMP 97
[2022-10-20] MEDS ORDERED: ATORVASTATIN 80 MG TAB PO ONE (07:00)
[2022-10-20] MEDS ORDERED: ASPIRIN 325 MG TAB PO ONE (07:00)
[2022-10-20] MEDS ORDERED: VERAPAMIL 2.5 MG/ML 2 ML AMP ONE (07:31)
[2022-10-20] MEDS ORDERED: fentaNYL (PF) 50 MCG/ML 2 ML AMP ONE (07:31)
[2022-10-20] MEDS ORDERED: HEPARIN SODIUM 1,000 UN/ML (10ML VL) ONE (07:31)
[2022-10-20] MEDS ORDERED: MIDAZOLAM 2 MG/2 ML VIAL IV ONE (07:35)
[2022-10-20] MEDS ORDERED: fentaNYL (PF) 50 MCG/ML 2 ML AMP IV ONE (07:35)
[2022-10-20] MEDS ORDERED: LIDOCAINE 1% INJ 10MG/ML (5 ML VIAL-PF) SQ ONE ×3 (07:36→07:38)
[2022-10-20] MEDS ORDERED: NITROGLYCERIN OINT 1 INCH/GM PACKET TOPICAL ONE ×2 (07:37→07:39)
[2022-10-20] MEDS ORDERED: VERAPAMIL SYRINGE (5 MG/10 ML) INTRAARTER ONE (07:39)
[2022-10-20] MEDS ORDERED: HEPARIN SODIUM 1,000 UN/ML (10ML VL) IV ONE (07:43)
[2022-10-20] MEDS ORDERED: IOPAMIDOL-370 125ML BTL INJ ONE (07:51)
[2022-10-20] MEDS ORDERED: amLODIPine 5 MG TAB PO STA (07:56)
[2022-10-20] MEDS ORDERED: RX INFO: IV CONTRAST WAS GIVEN 1 EACH MISC MISCELLANE PRN (08:05)
[2022-10-20] MEDS ORDERED: METOPROLOL TARTRATE 12.5 MG TAB PO STA (08:11)
[2022-10-20] MEDS ORDERED: SODIUM CHLORIDE 0.9% 1,000 ML IV SCH (08:15)
--- NOTE | 2022-10-20 08:29 | CC ---
CARDIAC CATHETERIZATION REPORT INDICATION: Shortness of breath with abnormal stress test. This is a 72-year-old gentleman with history of hypertension, who was referred to me for shortness of breath and had a stress test and echocardiogram that both showed cardiomyopathy with fixed inferior wall defect with an ejection fraction of 40% to 45%. Due to this, he was advised to undergo cardiac catheterization for further evaluation. After understanding risks and benefits including the risk of contrast-induced nephropathy, he decided to proceed with it. His creatinine was 1.5. We hydrated this morning. PROCEDURE NOTE: After obtaining informed consent, left heart catheterization and coronary angiogram were performed via the right radial artery using standard Samuel catheters. The patient tolerated the procedure well without any obvious immediate complications. He received moderate conscious sedation. Total sedation time was 16 minutes. The patient had elevated blood pressures and was placed on nitroglycerin paste prior to the procedure and will be started on amlodipine prior to discharge. The right radial artery access was obtained using modified Seldinger technique, and a 6- Tajik sheath was placed. Catheters and wires were floated into the ascending aorta under fluoroscopic guidance. The patient received 5 mg of verapamil and 5000 units of heparin per protocol and a TR band was used for hemostasis at the end of the procedure. FINDINGS: 1. Hemodynamics: Left ventricular end-diastolic pressure is 16 to 20 mm. There is no significant gradient across the aortic valve. 2. Left Ventriculogram: Left ventriculogram is not performed. 3. Angiographic Data: a.Right coronary artery: Right coronary artery is a large dominant vessel and is free of significant stenosis. b.Left main coronary artery: Left main coronary artery is a normal-sized vessel and is free of significant disease. It divides into left anterior descending coronary artery and circumflex coronary artery. LAD and its branches are free of significant stenosis. Circumflex coronary artery is a nondominant vessel in the very distal circ as it becomes the AV groove circ, appears chronically occluded. 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 PLAN: He will be managed with optimal medical therapy with aspirin, optimal control of his blood pressure and nitrates, and check his lipids and start him on statins. The patient has elevated creatinine and we used 60 mL of contrast with the contrast threshold of 140 mL. MMODL / IJN: [id number] /
[2022-10-20] MEDS ORDERED: amLODIPine 5 MG TAB PO SCH (09:00)
[2022-10-20 14:12] VITALS: BP 126/78; PULSE 88
== END 2022-10-20 12:24 | disposition home or self-care (01) ==
LOC: CATHCVL 05:41
PROVIDERS: ATTEND Internal Medicine Cardiovascular Disease
DX: I25.10 Atherosclerotic heart disease of native coronary artery without angina pectoris (principal); I42.9 Cardiomyopathy, unspecified; I10 Essential (primary) hypertension; N28.9 Disorder of kidney and ureter, unspecified; Z79.899 Other long term (current) drug therapy; F17.210 Nicotine dependence, cigarettes, uncomplicated
CPT/HCPCS: 99152; 93458; C1769 ×2; C1894; J2250; J2001; J3010; J1644; Q9967

== ENCOUNTER → 2023-01-14 | Outpatient (CLI) | payer OTHER ==
--- NOTE | 2023-01-14 15:58 | US ---
EXAMINATION TYPE: US scrotum with doppler. Grayscale and color Doppler Duplex imaging performed of ilir salcido scrotum. DATE OF EXAM: 01/14/2023 COMPARISON: NONE CLINICAL INDICATION: Male, 72 years old with history of N50.819 TESTICULAR PAIN, UNSPECIFIED; scrotal swelling x 1 month, no injury EXAM MEASUREMENTS: TESTICLES: Right Testicle: 5.1 x 2.8 x 2.7 cm Left Testicle: 4.6 x 3.4 x 2.4 cm EPIDIDYMIS HEAD: Right Epididymis: 0.5 cm Left Epididymis: 1.0 cm Doppler performed to assess for testicular vascularity; good bilateral color flow and waveforms are s een. There is no evidence of testicular torsion. Presence of hydroceles: severe hydrocele bilaterally Presence of varicoceles: no Color imaging of blood flow could not penetrate through large hydrocele, doppler waveforms of venous and arterial seen bilaterally IMPRESSION: 1. Large bilateral hydroceles.
== END | disposition home or self-care (01) ==
LOC: RADUSWWP 10:05
DX: N43.3 Hydrocele, unspecified (principal); N50.819 Testicular pain, unspecified
CPT/HCPCS: 76870; 93975

== ENCOUNTER 2023-10-13 03:18 | Observation (INO) | payer OTHER ==
--- NOTE | 2023-10-13 03:41 | ED ---
General Adult HPI - General Chief complaint: Recheck/Abnormal Lab/Rx Stated complaint: abnormal lab Time Seen by Provider: 10/13/23 03:21 Source: patient, RN notes reviewed, old records reviewed Mode of arrival: ambulatory Limitations: no limitations - History of Present Illness Initial comments: 73-year-old male presenting for evaluation of abnormal lab. Patient was called by the [facility] and told that his potassium was 6.1. He states he does have some chronic kidney issues. He states he has had normal appetite, normal intake, no vomiting. He has intermittent diarrhea which is normal for him. He does admit to some mild dyspnea and states that he is being worked up for COPD as he was a longtime smoker. He is following with pulmonology. He has a chest x-ray scheduled as an outpatient. Denies chest pain or fever. - Related Data Home Medications Medication Instructions Recorded Confirmed Cholecalciferol [Vitamin D3 (25 50 mcg PO DAILY 05/06/21 10/20/22 Mcg = 1000 Iu)] Cyanocobalamin (Vitamin B-12) 1,000 mcg PO DAILY 05/06/21 10/20/22 [Vitamin B-12] Diphenox-Atrop 2.5-0.025 mg 2 tab PO QID 01/09/22 10/20/22 [Lomotil] Budesonide [Entocort EC] 3 mg PO DAILY 10/15/22 10/20/22 Calcium Carbonate 1 dose PO QID 10/15/22 10/20/22 Cholestyramine/Aspartame 4 gm PO TID-W/MEALS 10/15/22 10/20/22 [Cholestyramine Light Packet] Escitalopram Oxalate [Lexapro] 10 mg PO DAILY 10/15/22 10/20/22 Magnesium Oxide [Mag-Ox] 1,000 mg PO BID 10/15/22 10/20/22 Metoprolol Tartrate [Lopressor] 25 mg PO BID 10/15/22 10/20/22 Pantoprazole Sodium [Protonix] 40 mg PO DAILY 10/15/22 10/20/22 amLODIPine [Norvasc] 5 mg PO DAILY 10/20/22 10/20/22 Allergies Allergy/AdvReac Type Severity Reaction Status Date / Time No Known Allergies Allergy Verified 10/13/23 03:23 Review of Systems ROS Statement: Those systems with pertinent positive or pertinent negative responses have been documented in the HPI. ROS Other: All systems not noted in ROS Statement are negative. Past Medical History Past Medical History: GERD/Reflux, Hypertension, Osteoarthritis (OA), Renal Disease Additional Past Medical History / Comment(s): BOWEL RESECTION X2 DUE TO INFECTION., CROHNS, IBS, HERNIATED DISC., COVID JUL 2021., HOSPTALIZED AUG 2021 WITH RASH & TOE WOUND WHICH IS HEALED.,KIDNEY DISEASE-STATES 50-60%., SOB., STATES RECENT DIZZINESS., SEE CARDIOLOGY H & P. History of Any Multi-Drug Resistant Organisms: None Reported Past Surgical History: Appendectomy, Bowel Resection Additional Past Surgical History / Comment(s): "35 YEARS AGO- BOWEL RESECTION AND ILEOCECAL VALVE REMOVED WITH 1 FOOT OF INTESTINE., HAD 2ND BOWEL RESECTION. Past Anesthesia/Blood Transfusion Reactions: No Reported Reaction Past Psychological History: Anxiety Smoking Status: Former smoker Past Alcohol Use History: None Reported Past Drug Use History: Cocaine, Marijuana, Methamphetamine, Opiates - Past Family History Mother Family Medical History: Coronary Artery Disease (CAD), Diabetes Mellitus Additional Family Medical History / Comment(s): NIDDM Father Family Medical History: Coronary Artery Disease (CAD), Diabetes Mellitus, Hyp ertension General Exam Limitations: no limitations General appearance: alert, in no apparent distress Head exam: Present: atraumatic, normocephalic Eye exam: Present: normal appearance, PERRL ENT exam: Present: normal exam Neck exam: Present: normal inspection. Absent: tenderness, meningismus Respiratory exam: Present: wheezes, decreased breath sounds, other (Tachypneic). Absent: respiratory distress Cardiovascular Exam: Present: regular rate, normal rhythm GI/Abdominal exam: Present: soft. Absent: distended, tenderness Extremities exam: Present: normal inspection, normal capillary refill. Absent: pedal edema, calf tenderness Neurological exam: Present: alert, oriented X3 Psychiatric exam: Present: normal affect, normal mood Skin exam: Present: warm, dry Course Vital Signs 10/13/23 03:20 Temperature 98.1 F Pulse Rate 94 Respiratory 26 H Rate Blood Pressure 160/89 O2 Sat by Pulse 88 L Oximetry Medical Decision Making - Medical Decision Making Was pt. sent in by a medical professional or institution (, PA, ELASTIC TAPE INSERTER, urgent ca re, hospital, or fpc...) When possible be specific @ -No Did you speak to anyone other than the patient for history (EMS, parent, family, police, friend...)? What history was obtained from this source @ -No Did you review nursing and triage notes (agree or disagree)? Why? @ -I reviewed and agree with nursing and triage notes Were old charts reviewed (outside hosp., previous admission, EMS record, old EKG, old radiological studies, urgent care reports/EKG's, fpc records)? Report findings @ -No old charts were reviewed Differential Diagnosis (chest pain, altered mental status, abdominal pain women, abdominal pain men, vaginal bleeding, weakness, fever, dyspnea, syncope, headache, dizziness, GI bleed, back pain, seizure, CVA, palpatations, mental health, musculoskeletal)? @ -[Differential Dyspnea: Coronary syndrome, arrhythmia, tamponade, asthma, COPD, pulmonary embolism, pneumonia, pneumothorax, pulmonary effusion, anaphylaxis, diabetic ketoacidosis, flailed chest, pulmonary contusion, diaphragmatic rupture, anemia, neuromuscular, this is not meant to be an all-inclusive list. EKG interpreted by me (3pts min.). @Sinus rhythm rate of 75, VT interval 180, QRS duration 94, QTc [address] segment elevation. X-rays interpreted by me (1pt min.). @Chest x-ray negative for focal pneumonia, no acute findings CT interpreted by me (1pt min.). @ -None done U/S interpreted by me (1pt. min.). @ -None done What testing was considered but not performed or refused? (CT, X-rays, U/S, labs)? Why? @ -None What meds were considered but not given or refused? Why? @ -None Did you discuss the management of the patient with other professionals (professionals i.e. , PA, E[employer] T[employer] INSERTER, lab, RT, psych nurse, psychotherapist social worker, veneer stock layer, teacher, bomb squad officer, employment evaluator/case manager)? Give summary @ -Dr. Hardy Was smoking cessation discussed for >3mins.? @ -No Was critical care preformed (if so, how long)? @ -No Were there social determinants of health that impacted care today? How? (Homelessness, low income, unemployed, alcoholism, drug addiction, transportation, low edu. Level, literacy, decrease access to med. care, nursing home, rehab)? @ -No Was there de-escalation of care discussed even if they declined (Discuss DNR or withdrawal of care, Hospice)? DNR status @ -No What co-morbidities impacted this encounter? (DM, HTN, Smoking, COPD, CAD, Cancer, CVA, ARF, Chemo, Hep., AIDS, mental health diagnosis, sleep apnea, morbid obesity)? @ -COPD, chronic kidney disease Was patient admitted / discharged? Hospital course, mention meds given and route, prescriptions, significant lab abnormalities, going to OR and other pertinent info. @ -Repeat potassium is 5.6, magnesium is 1.1. Patient does have moderate dyspnea and likely COPD exacerbation. He will be admitted both for electrolyte management of hyperkalemia, hypomagnesemia as well as COPD exacerbation. Patient admitted to [facility]. Undiagnosed new problem with uncertain prognosis? @ -No Drug Therapy requiring intensive monitoring for toxicity (Heparin, Nitro, Insulin, Cardizem)? @ -No Were any procedures done? @ -No Diagnosis/symptom? @ -[Hyperkalemia, SUN, hypomagnesemia, COPD Acute, or Chronic, or Acute on Chronic? @ -Acute on chronic Uncomplicated (without systemic symptoms) or Complicated (systemic symptoms)? @ -[default Side effects of treatment? @ -No Exacerbation, Progression, or Severe Exacerbation? @ -No Poses a threat to life or bodily function? How? (Chest pain, [place], [place], pneumonia, PE, COPD, DKA, ARF, appy, cholecystitis, CVA, Diverticulitis, Homicidal, Suicidal, threat to staff... and all critical care pts) @ -Yes, electrolyte abnormality, COPD - Lab Data Result diagrams: 10/13/23 03:37 10/13/23 03:37 Lab Results 10/13/23 10/13/23 Range/Units 03:37 03:37 WBC 11.3 H (3.8-10.6) k/uL RBC 4.11 L (4.30-5.90) m/uL Hgb 12.4 L (13.0-17.5) gm/dL Hct 38.2 L (39.0-53.0) % MCV 92.9 (80.0-100.0) fL MCH 30.1 (25.0-35.0) pg MCHC 32.4 (31.0-37.0) g/dL RDW 13.6 (11.5-15.5) % Plt Count 325 (150-450) k/uL MPV 7.3 Neutrophils % 70 % Lymphocytes % 16 % Monocytes % 8 % Eosinophils % 5 % Basophils % 1 % Neutrophils # 7.9 H (1.3-7.7) k/uL Lymphocytes # 1.8 (1.0-4.8) k/uL Monocytes # 0.9 (0-1.0) k/uL Eosinophils # 0.5 (0-0.7) k/uL Basophils # 0.1 (0-0.2) k/uL Sodium 139 (137-145) mmol/L Potassium 5.6 H (3.5-5.1) mmol/L Chloride 111 H (98-107) mmol/L Carbon Dioxide 19 L (22-30) mmol/L Anion Gap 9 mmol/L BUN 30 H (9-20) mg/dL Creatinine 1.77 H (0.66-1.25) mg/dL Est GFR (CKD-EPI)AfAm 43 (>60 ml/min/1.73 sqM) Est GFR (CKD-EPI)NonAf 37 (>60 ml/min/1.73 sqM) Glucose 111 H (74-99) mg/dL Calcium 8.6 (8.4-10.2) mg/dL Magnesium 1.1 L (1.6-2.3) mg/dL Total Bilirubin 0.4 (0.2-1.3) mg/dL AST 26 (17-59) U/L ALT 14 (4-49) U/L Alkaline Phosphatase 69 (38-126) U/L Total Protein 6.1 L (6.3-8.2) g/dL Albumin 3.5 (3.5-5.0) g/dL Disposition Clinical Impression: Hyperkalemia, Hypomagnesemia, COPD (chronic obstructive pulmonary disease) Disposition: ADMITTED IP TO THIS HOSP Condition: Stable Is patient prescribed a controlled substance at d/c from ED?: No Referrals: [facility],Clinic [Primary Care Provider] - 1-2 days Time of Disposition: 04:17
[2023-10-13] MEDS: predniSONE 50 MG TAB PO STA (03:51)
[2023-10-13 03:53] LABS: Basophils # (A) 0.1 k/uL (0-0.2); Basophils % (A) 1 %; Eosinophils # (A) 0.5 k/uL (0-0.7); Eosinophils % (A) 5 %; HCT 38.2 % (39.0-53.0); HGB 12.4 gm/dL (13.0-17.5); Lymphocytes # (A) 1.8 k/uL (1.0-4.8); Lymphocytes % (A) 16 %; MCH 30.1 pg (25.0-35.0); MCHC 32.4 g/dL (31.0-37.0); MCV 92.9 fL (80.0-100.0); Mean Platelet Volume 7.3; Monocytes # (A) 0.9 k/uL (0-1.0); Monocytes % (A) 8 %; Neutrophils # (A) 7.9 k/uL (1.3-7.7); Neutrophils % (A) 70 %; Platelet Count 325 k/uL (150-450); RBC 4.11 m/uL (4.30-5.90); RDW 13.6 % (11.5-15.5); WBC 11.3 k/uL (3.8-10.6)
[2023-10-13 04:10] LABS: ALT 14 U/L (4-49); AST 26 U/L (17-59); African American GFR (CKD) 43 (>60 ml/min/1.73 sqM); Albumin 3.5 g/dL (3.5-5.0); Alkaline Phosphatase 69 U/L (38-126); Anion Gap 9 mmol/L; Blood Urea Nitrogen 30 mg/dL (9-20); Calcium 8.6 mg/dL (8.4-10.2); Carbon Dioxide 19 mmol/L (22-30); Chloride 111 mmol/L (98-107); Glucose 111 mg/dL (74-99); Magnesium 1.1 mg/dL (1.6-2.3); Non-African American GFR(CKD) 37 (>60 ml/min/1.73 sqM); Potassium 5.6 mmol/L (3.5-5.1); Sodium 139 mmol/L (137-145); Total Bilirubin 0.4 mg/dL (0.2-1.3); Total Protein 6.1 g/dL (6.3-8.2)
[2023-10-13] MEDS ORDERED: ACETAMINOPHEN TAB 325 MG TAB PO PRN (04:12)
[2023-10-13] MEDS ORDERED: NALOXONE 0.4 MG/ML 1 ML VIAL IV PRN (04:12)
[2023-10-13] MEDS: SODIUM CHLORIDE 0.9% 1,000 ML IV SCH (04:29)
[2023-10-13] MEDS: MAGNESIUM SULFATE-D5W PMX 1 GM in DEXTROSE/WATER 1 100ML.BAG IVPB SCH ×2 (04:29→11:30)
[2023-10-13] MEDS ORDERED: IPRATROPIUM-ALBUTEROL 3 ML NEB INHALATION PRN ×2 (04:43→07:58)
--- NOTE | 2023-10-13 04:45 | P.HPIM ---
History of Present Illness H&P Date: 10/13/23 Patient is a 73-year-old male with a PMH of CKD stage III, hypertension, and tobacco abuse who was advised to go to the emergency room for abnormal blood work. The patient recently underwent a BMP which revealed a potassium of 6.1. Patient also notes that over the past few weeks he has been experiencing gradually worsening shortness of breath. He has a [id number] tobacco abuse history. Denied experiencing chest discomfort, nausea, vomiting, diaphoresis, or dizziness. Also denied abdominal pain, diarrhea. Chest x-ray in the emergency room revealed findings consistent with COPD with EKG showing sinus rhythm at [address]/T wave changes noted as reviewed by me. Laboratory evaluation was remarkable for leukocytosis of 11.3, hemoglobin 12.4, potassium 5.6, creatinine 1.7 (baseline 1.4), and magnesium 1.1. The patient's SpO2 in the emergency room upon arrival was 88% on room air with a respiratory rate 26, temp 98.1, and BP 160/89. ED documentation reviewed and case discussed with ED provider. Review of systems: Pertinent positives and negatives as discussed in HPI, a complete review of systems was performed and all other systems are negative. Physical examination: Vital signs reviewed General: non toxic, no distress, appears at stated age, overweight Derm: no unusual rashes/lesions, warm Head: atraumatic, normocephalic, symmetric Eyes: EOMI, no lid lag, anicteric sclera, pupils equal round reactive to light ENT: Nose and ears atraumatic Neck: No cervical lymphadenopathy, trachea midline, supple Mouth: no lip lesion, mucus membranes moist Cardiovascular: S1S2 reg, no murmur, positive dorsalis pedis pulse bilateral, no edema Lungs: Poor air entry bilaterally with some wheezing without rhonchi or rales, no accessory muscle use Abdominal: soft, nontender to palpation, no guarding Ext: muscle strength 5 out of 5 in all 4 extremities grossly, no gross muscle atrophy, no contractures, Neuro: CN II-XI grossly intact, no gross focal neuro deficits Psych: Alert, oriented, appropriate affect Assessment: Acute hypoxic respiratory failure, suspect due to undiagnosed COPD SUN on chronic kidney disease Hyperkalemia Hypomagnesemia Leukocytosis, likely due to acute stressor with no signs of active infection at this time Imaging: Chest x-ray in the emergency room revealed findings consistent with COPD with EKG showing sinus rhythm at [address]/T wave changes noted as reviewed by me. Data Review: Laboratory evaluation was remarkable for leukocytosis of 11.3, hemoglobin 12.4, potassium 5.6, creatinine 1.7 (baseline 1.4), and magnesium 1.1. The patient's SpO2 in the emergency room upon arrival was 88% on room air with a respiratory rate 26, temp 98.1, and BP 160/89. Plan: Continue with DuoNebs and prednisone 50 mg p.o. daily Pulmonary consult Supplemental oxygen; patient will likely need home O2 Continue IV fluids with normal saline 75 cc/h Monitor BMP Replace magnesium and monitor Monitor CBC DVT prophylaxis: Lovenox subcu The patient is admitted with an anticipated less than 2 midnight stay for evaluation of acute hypoxic respiratory failure CODE STATUS: Full Code Discussed with: Patient Anticipated discharge place: Home Past Medical History Past Medical History: GERD/Reflux, Hypertension, Osteoarthritis (OA), Renal Disease Additional Past Medical History / Comment(s): BOWEL RESECTION X2 DUE TO INFECTION., CROHNS, IBS, HERNIATED DISC., COVID JUL 2021., HOSPTALIZED AUG 2021 WITH RASH & TOE WOUND WHICH IS HEALED.,KIDNEY DISEASE-STATES 50-60%., SOB., S TATES RECENT DIZZINESS., SEE CARDIOLOGY H & P. History of Any Multi-Drug Resistant Organisms: None Reported Past Surgical History: Appendectomy, Bowel Resection Additional Past Surgical History / Comment(s): "35 YEARS AGO- BOWEL RESECTION AND ILEOCECAL VALVE REMOVED WITH 1 FOOT OF INTESTINE., HAD 2ND BOWEL RESECTION. Past Anesthesia/Blood Transfusion Reactions: No Reported Reaction Past Psychological History: Anxiety Smoking Status: Former smoker Past Alcohol Use History: None Reported Past Drug Use History: Cocaine, Marijuana, Methamphetamine, Opiates - Past Family History Mother Family Medical History: Coronary Artery Disease (CAD), Diabetes Mellitus Additional Family Medical History / Comment(s): NIDDM Father Family Medical History: Coronary Artery Disease (CAD), Diabetes Mellitus, Hypertension Medications and Allergies Home Medications Medication Instructions Recorded Confirmed Type Cholecalciferol [Vitamin D3 (25 50 mcg PO DAILY 05/06/21 10/20/22 History Mcg = 1000 Iu)] Cyanocobalamin (Vitamin B-12) 1,000 mcg PO DAILY 05/06/21 10/20/22 History [Vitamin B-12] Diphenox-Atrop 2.5-0.025 mg 2 tab PO QID 01/09/22 10/20/22 History [Lomotil] Budesonide [Entocort EC] 3 mg PO DAILY 10/15/22 10/20/22 History Calcium Carbonate 1 dose PO QID 10/15/22 10/20/22 History Cholestyramine/Aspartame 4 gm PO TID-W/MEALS 10/15/22 10/20/22 History [Cholestyramine Light Packet] Escitalopram Oxalate [Lexapro] 10 mg PO DAILY 10/15/22 10/20/22 History Magnesium Oxide [Mag-Ox] 1,000 mg PO BID 10/15/22 10/20/22 History Metoprolol Tartrate [Lopressor] 25 mg PO BID 10/15/22 10/20/22 History Pantoprazole Sodium [Protonix] 40 mg PO DAILY 10/15/22 10/20/22 History amLODIPine [Norvasc] 5 mg PO DAILY 10/20/22 10/20/22 History Allergies Allergy/AdvReac Type Severity Reaction Status Date / Time No Known Allergies Allergy Verified 10/13/23 03:23 Physical Exam Vitals: Vital Signs Temp Pulse Resp BP Pulse Ox 10/13/23 04:39 68 16 165/98 96 10/13/23 03:20 98.1 F 94 26 H 160/89 88 L Intake and Output 10/12/23 10/12/23 10/13/23 14:59 22:59 06:59 Other: Weight 101.151 kg Results CBC & Chem 7: 10/13/23 03:37 10/13/23 03:37 Labs: Abnormal Lab Results - Last 24 Hours (Table) 10/13/23 10/13/23 Range/Units 03:37 03:37 WBC 11.3 H (3.8-10.6) k/uL RBC 4.11 L (4.30-5.90) m/uL Hgb 12.4 L (13.0-17.5) gm/dL Hct 38.2 L (39.0-53.0) % Neutrophils # 7.9 H (1.3-7.7) k/uL Potassium 5.6 H (3.5-5.1) mmol/L Chloride 111 H (98-107) mmol/L Carbon Dioxide 19 L (22-30) mmol/L BUN 30 H (9-20) mg/dL Creatinine 1.77 H (0.66-1.25) mg/dL Glucose 111 H (74-99) mg/dL Magnesium 1.1 L (1.6-2.3) mg/dL Total Protein 6.1 L (6.3-8.2) g/dL
[2023-10-13] MEDS ORDERED: ZINC OXIDE PASTE (Z-GUARD) 1 APPLIC TOPICAL PRN (05:06)
[2023-10-13] MEDS: IPRATROPIUM-ALBUTEROL 3 ML NEB INHALATION STA (05:11)
--- NOTE | 2023-10-13 06:37 | XR ---
EXAM: XR Chest, 2 Views CLINICAL HISTORY: ITS.REASON XR Reason: sob TECHNIQUE: Frontal and lateral views of the chest. COMPARISON: No relevant prior studies available. IMPRESSION: 1. No acute cardiopulmonary abnormality.
[2023-10-13] MEDS ORDERED: IPRATROPIUM-ALBUTEROL 3 ML NEB INHALATION SCH (08:00)
[2023-10-13] MEDS: IPRATROPIUM-ALBUTEROL 3 ML NEB INHALATION SCH (08:28)
[2023-10-13] MEDS: SYMBICORT 160-4.5 MCG INHALER INHALATION SCH (08:28)
[2023-10-13] MEDS ORDERED: predniSONE 50 MG TAB PO SCH (09:00)
[2023-10-13] MEDS: METOPROLOL TARTRATE 12.5 MG TAB PO SCH (09:34)
[2023-10-13] MEDS: predniSONE 20 MG TAB PO SCH (09:34)
[2023-10-13] MEDS: ASPIRIN 81 MG PO SCH (09:35)
[2023-10-13] MEDS: ENOXAPARIN 40 MG/0.4 ML SYRINGE SQ SCH (09:36)
[2023-10-13] MEDS: ESCITALOPRAM 10 MG TAB PO SCH (09:38)
[2023-10-13 10:51] LABS: African American GFR (CKD) 40 (>60 ml/min/1.73 sqM); Anion Gap 17 mmol/L; Blood Urea Nitrogen 27 mg/dL (9-20); Carbon Dioxide 12 mmol/L (22-30); Chloride 110 mmol/L (98-107); Glucose 230 mg/dL (74-99); Magnesium 1.5 mg/dL (1.6-2.3); Non-African American GFR(CKD) 35 (>60 ml/min/1.73 sqM); Potassium 4.9 mmol/L (3.5-5.1); Sodium 139 mmol/L (137-145)
--- NOTE | 2023-10-13 12:01 | P.CNPUL ---
History of Present Illness Consult date: 10/13/23 Requesting physician: Garo Hardy Reason for consult: dyspnea, COPD Chief complaint: Abnormal labs, shortness of breath History of present illness: This is a pleasant 73-year-old male patient who follows at the [facility] for his primary care needs. He has a history of chronic and ongoing tobacco dependence of greater than 50 years, hypertension, chronic kidney disease, Crohn's disease, anxiety, previous history of drug abuse. He presented here to the emergency room early this morning after being contacted by the [facility] that his potassium was 6.1. He was having some issues with shortness of breath. Chest x-ray revealed no acute pulmonary process. White count 11.3. Hemoglobin 12.4. Sodium 139. Initial potassium 5.6 currently 4.9. Bicarb 12. BUN 27. Creatinine 1.86. Glucose 230. He is seen today in consultation on the regular medical floor. He is currently sitting up in bed. Awake and alert in no acute distress. He is requiring oxygen at 3 L/min per nasal cannula to maintain O2 saturation in the 90s. He was 88% FiO2 on room air. He has normal saline at 75 MLS per hour. Review of Systems REVIEW OF SYSTEMS: CONSTITUTIONAL: Denies any recent significant weight loss or weight gain. EYES: Denies change in vision. EARS, NOSE, MOUTH, THROAT: Denies headaches, denies sore throat. CARDIOVASCULAR: Denies chest pain, palpitations or syncopal episodes. RESPIRATORY: Positive for shortness of breath, no cough, congestion or hemoptysis. GASTROINTESTINAL: Denies change in appetite, denies abdominal pain GENITOURINARY: Denies hematuria, denies infections. MUSKULOSKELETAL: Denies pain, denies swelling. INTEGUMENTARY: Denies rash, denies eczema. NEUROLOGICAL: Denies recent memory loss, no recent seizure activity. PSYCHIATRIC: Denies anxiety, denies depression. HEMATOLOGIC/LYMPHATIC: Denies anemia, denies enlarged lymph nodes. Past Medical History Past Medical History: GERD/Reflux, Hypertension, Osteoarthritis (OA), Renal Disease Additional Past Medical History / Comment(s): BOWEL RESECTION X2 DUE TO INFECTION., CROHNS, IBS, HERNIATED DISC., COVID JUL 2021., HOSPTALIZED AUG 2021 WITH RASH & TOE WOUND WHICH IS HEALED.,KIDNEY DISEASE-STATES 50-60%., SOB., STATES RECENT DIZZINESS., SEE CARDIOLOGY H & P. History of Any Multi-Drug Resistant Organisms: None Reported Past Surgical History: Appendectomy, Bowel Resection Additional Past Surgical History / Comment(s): "35 YEARS AGO- BOWEL RESECTION AND ILEOCECAL VALVE REMOVED WITH 1 FOOT OF INTESTINE., HAD 2ND BOWEL RESECTION 3 YEARS AGO. Past Anesthesia/Blood Transfusion Reactions: No Reported Reaction Past Psychological History: Anxiety Additional Psychological History / Comment(s): . Smoking Status: Former smoker Past Alcohol Use History: None Reported Additional Past Alcohol Use History / Comment(s): QUIT SMOKING 3-4 YRS AGO, HX OF 1PPD Past Drug Use History: Cocaine, Marijuana, Methamphetamine, Opiates Additional Drug Use History / Comment(s): quit all drugs 10-15 yrs ago. - Past Family History Mother Family Medical History: Coronary Artery Disease (CAD), Diabetes Mellitus Additional Family Medical History / Comment(s): NIDDM Father Family Medical History: Coronary Artery Disease (CAD), Diabetes Mellitus, Hypertension Medications and Allergies Home Medications Medication Instructions Recorded Confirmed Type Cholecalciferol [Vitamin D3 (25 50 mcg PO BID 05/06/21 10/13/23 History Mcg = 1000 Iu)] Cyanocobalamin (Vitamin B-12) 1,000 mcg PO DAILY 05/06/21 10/13/23 History [Vitamin B-12] Diphenox-Atrop 2.5-0.025 mg 2 tab PO QID PRN 01/09/22 10/13/23 History [Lomotil] Cholestyramine/Aspartame 4 gm PO TID-W/MEALS 10/15/22 10/13/23 History [Cholestyramine Light Packet] Escitalopram Oxalate [Lexapro] 10 mg PO DAILY 10/15/22 10/13/23 History Magnesium Oxide [Mag-Ox] 2,000 mg PO BID 10/15/22 10/13/23 History Metoprolol Tartrate [Lopressor] 12.5 mg PO BID 10/15/22 10/13/23 History Aspirin [[place] Aspirin EC] 81 mg PO DAILY 10/13/23 10/13/23 History Calcium Carbonate 500 mg PO QID 10/13/23 10/13/23 History Allergies Allergy/AdvReac Type Severity Reaction Status Date / Time etodolac AdvReac Abdominal Verified 10/13/23 08:07 Pain hydrochlorothiazide AdvReac dizziness Verified 10/13/23 08:07 [From Prinzide] & cramps lisinopril [From Prinzide] AdvReac dizziness Verified 10/13/23 08:07 & cramps vardenafil [From Levitra] AdvReac Disoriented Verified 10/13/23 08:07 Physical Exam Vitals: Vital Signs Temp Pulse Pulse Resp BP BP Pulse Ox 10/13/23 11:49 68 10/13/23 08:40 76 10/13/23 08:30 74 98 10/13/23 07:00 97.8 F 97 193/93 98 10/13/23 06:23 16 10/13/23 05:20 72 10/13/23 05:11 76 10/13/23 04:39 68 16 165/98 96 10/13/23 03:20 98.1 F 94 26 H 160/89 88 L Intake and Output 10/12/23 10/13/23 10/13/23 22:59 06:59 14:59 Intake Total 650 180 Balance 650 180 Intake: Intake, IV Titration 350 Amount Magnesium Sulfate-D5w Pmx 200 1 gm In Dextrose/Water 1 100ml.bag @ 100 mls/hr IVPB Q1H [facility] Rx#: [id number] Sodium Chloride 0.9% 1, 150 000 ml @ 75 mls/hr IV . [id number] [facility] Rx#:[id number] Oral 300 180 Other: Voiding Method Toilet # Voids 1 1 # Bowel Movements 0 Weight 101.151 kg GENERAL EXAM: Alert, pleasant 73-year-old gentleman, on 3 L nasal cannula, comfortable in no apparent distress. HEAD: Normocephalic. EYES: Normal reaction of pupils, equal size. NOSE: Clear with pink turbinates. THROAT: No erythema or exudates. NECK: No masses, no JVD. CHEST: No chest wall deformity. LUNGS: Equal air entry with no crackles, wheeze, rhonchi or dullness. Diminished. CVS: S1 and S2 normal with no audible murmur, regular rhythm. ABDOMEN: No hepatosplenomegaly, normal bowel sounds, no guarding or rigidity. SPINE: No scoliosis or deformity SKIN: No rashes CENTRAL NERVOUS SYSTEM: No focal deficits, tone is normal in all 4 extremities. EXTREMITIES: There is no peripheral edema. No clubbing, no cyanosis. Peripheral pulses are intact. Results - Laboratory Findings CBC and BMP: 10/13/23 03:37 10/13/23 10:04 Abnormal lab findings: Abnormal Labs 10/13/23 10/13/23 10/13/23 03:37 03:37 10:04 WBC 11.3 H RBC 4.11 L Hgb 12.4 L Hct 38.2 L Neutrophils # 7.9 H Potassium 5.6 H Chloride 111 H 110 H Carbon Dioxide 19 L 12 L BUN 30 H 27 H Creatinine 1.77 H 1.86 H Glucose 111 H 230 H Magnesium 1.1 L 1.5 L Total Protein 6.1 L - Diagnostic Findings Chest x-ray: image reviewed Assessment and Plan Assessment: Hyperkalemia secondary to chronic kidney disease, initial potassium 5.6, currently 4.9 Hypomagnesemia, initial level 1.1 currently 1.5 Acute hypoxemic respiratory failure secondary to suspected severe chronic obstructive pulmonary disease Chronic and ongoing tobacco dependence of greater than 50 years Hypertension Anxiety Previous history of drug abuse Plan: The patient was seen and evaluated Chest x-ray, labs and medications reviewed Continued on DuoNeb ventilations, Symbicort, prednisone Correct electrolyte disturbances Titrate the FiO2 as tolerated Evaluate for possible home oxygen We will continue to follow and make further recommendations based on his clinical status I have personally seen and examined the patient, performed the documentation and the assessment and plan as written. Number of minutes spent on the visit: 20.
--- NOTE | 2023-10-13 12:09 | P.PN ---
Subjective Progress Note Date: 10/13/23 Hospital course: Patient is a very pleasant 73-year-old male with a past medical history of stage III chronic kidney disease, hypertension, Crohn's disease status post bowel resections x 2, COPD with previous nicotine dependence, and former polysubstance abuse. He presented to the emergency department overnight secondary to reports of abnormal labs. [facility] and informed that his potassium was elevated at 6.1. Upon arrival to our facility patient underwent full evaluation. Vital signs upon arrival show blood pressure 160/89, heart rate 94, respiratory rate 26, temp 98.1 F, and SpO2 of 88% on room air. Patient was placed on 3 L supplemental oxygen increasing his SpO2 to 96%. EKG was completed showing normal sinus rhythm at 75 bpm. Chest x-ray was negative for acute cardiopulmonary process. Labs completed and reviewed. CBC showing leukocytosis with WBC count of 11.3 and stable normocytic anemia with hemoglobin of 12.4. BMP revealing hyperkalemia with potassium of 5.6, and non-anion gap metabolic acidosis with chloride of 111, bicarb 19, and anion gap of 9. Renal function showing BUN of 30, creatinine 1.77, and GFR of 37. Blood glucose was 111. Magnesium was low at 1.1. Liver profile normal findings. Patient admitted under our services with consultation to pulmonology and nephrology. Physical exam: Patient seen and fully evaluated at bedside this morning. He reports overall feeling somewhat better this morning. He currently denies having any shortness of breath. He reports he has been experiencing progressively worsening shortness of breath over the past year and a half, but currently denies having shortness of breath at rest. Vital signs reviewed and stable. General: Nontoxic, no distress and appears stated age. Derm: Skin warm and dry, normal coloration for ethnicity. Head: Atraumatic, normocephalic and symmetric. Eyes: EOMs intact, no lid lag, and anicteric sclera Mouth: no lip lesions, mucus membranes moist Cardiovascular: regular rate and rhythm with normal S1S2, no murmur, positive posterior tibial pulses bilaterally, and cap refill < 2 seconds. Lungs: Respirations even, regular, and unlabored. Lungs diminished with diffuse soft expiratory wheezes otherwise no rhonchi, rales, or crackles noted. Abdominal: soft, nontender to palpation, no guarding, no appreciable organomegaly Ext: ROM intact. No gross muscle atrophy, no edema, no contractures Neuro: Speech clear, face symmetrical and CN II-XII grossly intact with no noted focal neuro deficits Psych: Alert and oriented to person, place, time, and situation. Appropriate and pleasant affect. Assessment and Plan of Care: Acute on chronic respiratory failure with hypoxia COPD exacerbation -Consult to Pulmonology, appreciate recommendations -Continue supplemental oxygen and titrated as needed to maintain SPO2 equal to or greater than 92% -Telemetry monitoring. -Monitor Pulse-oximetry and patient will need home O2 evaluation -Duonebs scheduled 4 times daily and as needed for SOB and/or wheezing -Incentive Spirometry -Steroids: Continue prednisone 40 mg daily -Patient started on Symbicort 168-4.5 mcg 2 puffs twice daily Acute kidney injury on stage IIIb chronic kidney disease Hyperkalemia secondary to above Non-anion gap metabolic acidosis, secondary to above -Repeat morning labs reveal slightly worsening renal function with BUN of 27, creatinine 1.86, and GFR of 35. Hyperkalemia resolved with potassium decreasing from 5.6 down to 4.9. -Nephrology consulted secondary to acute kidney injury on CKD stage III and hyperkalemia. Hypomagnesemia -Magnesium currently 1.5. Orders placed for magnesium sulfate 2 g IV B. Hypertension History of Crohn's disease status post bowel resections x 2 CODE STATUS: Full code DVT prophylaxis: Lovenox Anticipated discharge date: Likely 24 to [address]: Home Patient was seen independently by Nurse Pracitioner. This document was prepared using [employer] dictation software. Please allow for errors in tap out operator, while rare they do occur. Alexys Cohen NP rendered care for this patient independently, reviewed the findings and plan as documented in the note above. I did not physically speak with or examine the patient on this date. Objective - Vital Signs Vital signs: Vital Signs Temp 97.8 F 10/13/23 07:00 Pulse 97 10/13/23 07:00 Resp 16 10/13/23 06:23 BP 193/93 10/13/23 07:00 Pulse Ox 98 10/13/23 07:00 FiO2 Intake & Output 10/12/23 10/13/23 10/13/23 18:59 06:59 18:59 Intake Total 650 Balance 650 Weight 101.151 kg Intake: Intake, IV Titration 350 Amount Magnesium Sulfate-D5w Pmx 200 1 gm In Dextrose/Water 1 100ml.bag @ 100 mls/hr IVPB Q1H [facility] Rx#: [id number] Sodium Chloride 0.9% 1, 150 000 ml @ 75 mls/hr IV . [id number] [facility] Rx#:[id number] Oral 300 Other: Voiding Method Toilet # Voids 1 1 # Bowel Movements 0 - Labs CBC & Chem 7: 10/13/23 03:37 10/13/23 10:04 Labs: Abnormal Lab Results - Last 24 Hours (Table) 10/13/23 10/13/23 Range/Units 03:37 03:37 WBC 11.3 H (3.8-10.6) k/uL RBC 4.11 L (4.30-5.90) m/uL Hgb 12.4 L (13.0-17.5) gm/dL Hct 38.2 L (39.0-53.0) % Neutrophils # 7.9 H (1.3-7.7) k/uL Potassium 5.6 H (3.5-5.1) mmol/L Chloride 111 H (98-107) mmol/L Carbon Dioxide 19 L (22-30) mmol/L BUN 30 H (9-20) mg/dL Creatinine 1.77 H (0.66-1.25) mg/dL Glucose 111 H (74-99) mg/dL Magnesium 1.1 L (1.6-2.3) mg/dL Total Protein 6.1 L (6.3-8.2) g/dL
[2023-10-13 12:27] LABS: Appearance,Urine Clear (Clear); Bilirubin,Urine Negative (Negative); Blood,Urine Moderate (Negative); Color,Urine Light Yellow; Glucose,Urine (UA) Negative (Negative); Hyaline Casts,Urine 23 /lpf (0-2); Ketones,Urine Negative (Negative); Leukocyte Esterase,Urine Negative (Negative); Mucus,Urine Rare /hpf; Nitrite,Urine Negative (Negative); PH, Urine 5.5 (5.0-8.0); Protein,Urine 2+ (Negative); RBC,Urine 17 /hpf (0-5); Squamous Epithelial Cell,Urine <1 /hpf (0-4); Urobilinogen,Urine <2.0 mg/dL (<2.0); WBC,Urine 3 /hpf (0-5)
--- NOTE | 2023-10-13 13:26 | P.NPCON ---
History of Present Illness - Reason for Consult chronic renal failure - History of Present Illness Reason for consultation: Chronic kidney disease History of present illness: Patient is a 73-year-old male seen in renal consultation for chronic kidney disease. Patient's creatinine in March 2022 was 1.9the last he was seen in the office. 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 Patient's proteinuria improved after he finished a course of prednisone. Patient has history of Crohn's disease and has undergone colon surgeries in the past. Patient states he has chronic diarrhea. He denies use of nonsteroidals. Denies history of diabetes. Denies history of coronary artery disease. Denies family history of renal disease. Denies gross hematuria or dysuria. Patient states he had blood work done and was told to go to the hospital due to potassium level of 6.1. On admission his potassium was 5.6 and is 4.9 this morning. Patient is currently receiving normal saline. He was noted to be quite acidotic with a bicarb level of 12. Magnesium was also low which was replaced. Denies nausea or vomiting. Oral intake fair. Patient states he monitors his potassium intake at home. Patient states he has cut back on tomatoes and potatoes. Vital signs are stable. General: No acute distress. HEENT: Head exam is unremarkable. LUNGS: No audible rhonchi or wheezes. HEART: Rate and Rhythm are regular. ABDOMEN: Nontender. EXTREMITITES: No edema. Past Medical History Past Medical History: GERD/Reflux, Hypertension, Osteoarthritis (OA), Renal Disease Additional Past Medical History / Comment(s): BOWEL RESECTION X2 DUE TO INFECTION., CROHNS, IBS, HERNIATED DISC., COVID JUL 2021., HOSPTALIZED AUG 2021 WITH RASH & TOE WOUND WHICH IS HEALED.,KIDNEY DISEASE-STATES 50-60%., SOB., STATES RECENT DIZZINESS., SEE CARDIOLOGY H & P. History of Any Multi-Drug Resistant Organisms: None Reported Past Surgical History: Appendectomy, Bowel Resection Additional Past Surgical History / Comment(s): "35 YEARS AGO- BOWEL RESECTION AND ILEOCECAL VALVE REMOVED WITH 1 FOOT OF INTESTINE., HAD 2ND BOWEL RESECTION 3 YEARS AGO. Past Anesthesia/Blood Transfusion Reactions: No Reported Reaction Past Psychological History: Anxiety Additional Psychological History / Comment(s): . Smoking Status: Former smoker Past Alcohol Use History: None Reported Additional Past Alcohol Use History / Comment(s): QUIT SMOKING 3-4 YRS AGO, HX OF 1PPD Past Drug Use History: Cocaine, Marijuana, Methamphetamine, Opiates Additional Drug Use History / Comment(s): quit all drugs 10-15 yrs ago. - Past Family History Mother Family Medical History: Coronary Artery Disease (CAD), Diabetes Mellitus Additional Family Medical History / Comment(s): NIDDM Father Family Medical History: Coronary Artery Disease (CAD), Diabetes Mellitus, Hypertension Medications and Allergies Home Medications Medication Instructions Recorded Confirmed Type Cholecalciferol [Vitamin D3 (25 50 mcg PO BID 05/06/21 10/13/23 History Mcg = 1000 Iu)] Cyanocobalamin (Vitamin B-12) 1,000 mcg PO DAILY 05/06/21 10/13/23 History [Vitamin B-12] Diphenox-Atrop 2.5-0.025 mg 2 tab PO QID PRN 01/09/22 10/13/23 History [Lomotil] Cholestyramine/Aspartame 4 gm PO TID-W/MEALS 10/15/22 10/13/23 History [Cholestyramine Light Packet] Escitalopram Oxalate [Lexapro] 10 mg PO DAILY 10/15/22 10/13/23 History Magnesium Oxide [Mag-Ox] 2,000 mg PO BID 10/15/22 10/13/23 History Metoprolol Tartrate [Lopressor] 12.5 mg PO BID 10/15/22 10/13/23 History Aspirin [[place] Aspirin EC] 81 mg PO DAILY 10/13/23 10/13/23 History Calcium Carbonate 500 mg PO QID 10/13/23 10/13/23 History Allergies Allergy/AdvReac Type Severity Reaction Status Date / Time etodolac AdvReac Abdominal Verified 10/13/23 08:07 Pain hydrochlorothiazide AdvReac dizziness Verified 10/13/23 08:07 [From Prinzide] & cramps lisinopril [From Prinzide] AdvReac dizziness Verified 10/13/23 08:07 & cramps vardenafil [From Levitra] AdvReac Disoriented Verified 10/13/23 08:07 Physical Exam Vitals: Vital Signs Temp Pulse Pulse Pulse Resp BP BP 10/13/23 12:58 97.2 F L 95 16 10/13/23 11:57 74 10/13/23 11:49 68 10/13/23 08:40 76 10/13/23 08:30 74 10/13/23 07:00 97.8 F 97 193/93 10/13/23 06:23 16 10/13/23 05:20 72 10/13/23 05:11 76 10/13/23 04:39 68 16 165/98 10/13/23 03:20 98.1 F 94 26 H 160/89 BP Pulse Ox 10/13/23 12:58 130/73 96 10/13/23 11:57 10/13/23 11:49 10/13/23 08:40 10/13/23 08:30 98 10/13/23 07:00 98 10/13/23 06:23 10/13/23 05:20 10/13/23 05:11 10/13/23 04:39 96 10/13/23 03:20 88 L Intake and Output 10/12/23 10/13/23 10/13/23 22:59 06:59 14:59 Intake Total 650 180 Output Total 247 Balance 650 -67 Intake: Intake, IV Titration 350 Amount Magnesium Sulfate-D5w Pmx 200 1 gm In Dextrose/Water 1 100ml.bag @ 100 mls/hr IVPB Q1H [facility] Rx#: [id number] Sodium Chloride 0.9% 1, 150 000 ml @ 75 mls/hr IV . [id number] [facility] Rx#:[id number] Oral 300 180 Output: Post Void Residual 247 Other: Voiding Method Toilet # Voids 1 1 # Bowel Movements 0 Weight 101.151 kg Results - Lab Results Most recent lab results Calcium 9.0 mg/dL (8.4-10.2) 10/13/23 10:04 Magnesium 1.5 mg/dL (1.6-2.3) L 10/13/23 10:04 10/13/23 03:37 10/13/23 10:04 Assessment and Plan Plan: Assessment: 1. Chronic kidney disease stage IIIb with creatinine 1.9 in March 2022. Creatinine today is 1.86. 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 Patient completed course of prednisone in 2021 with improvement in proteinuria. This can be secondary IgA due to underlying inflammatory bowel disease. UA at this admission shows 2+ protein and 17 RBCs. 2. Hyperkalemia secondary to acidosis. Improved. 3. Metabolic acidosis secondary to IV fluids and GI losses. 4. Hypomagnesemia secondary to GI losses. 5. Acute on chronic hypoxic respiratory failure secondary to COPD exacerbation. On steroids. Plan: Change normal saline to bicarb drip. Magnesium replaced. Avoid nephrotoxins. Repeat UA again tomorrow. If still shows protein and blood, will recheck serologies. Check protein to creatinine ratio. Avoid nephrotoxins. Continue to monitor renal function and urine output. Will benefit from SALVADOR or ARB as well as SGLT2 inhibitor in near future. Strongly advised patient to follow-up outpatient 1 week postdischarge. Thank you for the consultation. I will continue to follow the patient with you during his hospital stay.
[2023-10-13 13:59] LABS: Creatinine,Urine Random 155.6 mg/dL
[2023-10-13 14:10] LABS: Protein/Creatinine Ratio,Urine 1.697
[2023-10-13] MEDS: DEXTROSE 5% IN WATER 1,000 ML with SODIUM BICARB (1 MEQ/ML) 150 ML IV SCH (14:54)
--- NOTE | 2023-10-13 15:12 | US ---
EXAMINATION TYPE: US kidneys/renal and bladder DATE OF EXAM: 10/13/2023 COMPARISON: CT 2016, US 2020 CLINICAL INDICATION: Male, 73 years old with history of sun; SUN EXAM MEASUREMENTS: Right Kidney: 12.9 x 5.1 x 6.0 cm Left Kidney: 11.6 x 6.2 x 5.1 cm Right Kidney: Enlarged. No hydronephrosis or masses seen Left Kidney: No hydronephrosis or masses seen Bladder: *Irregular/jagged-appearing bladder wall. Bilateral Jets seen: No, not seen during exam. *Appearance of duplicate collecting system bilateral kidneys. IMPRESSION: 1. No evidence for obstructive uropathy. 2. Home Health Caregiver reports irregular shaped bladder wall which could be due to the superior pubic ramus. Consider further evaluation with CT urogram if clinically wanted.
[2023-10-14 08:43] LABS: HCT 35.1 % (39.6-50.0); HGB 11.4 g/dL (13.0-17.0); MCH 29.2 pg (27.0-32.0); MCHC 32.5 g/dL (32.0-37.0); MCV 89.8 FL (80.0-97.0); Mean Platelet Volume 9.7 FL (9.5-12.2); NRBC Per 100 WBC 0 X 10*3/uL (0.00-0.01); Platelet Count 318 X 10*3/uL (140-440); RBC 3.91 X 10*6/uL (4.40-5.60); RDW 13.6 % (11.5-14.5)
[2023-10-14 08:49] LABS: ALT 11 U/L (10-49); AST 18 U/L (14-35); Albumin 3.4 g/dL (3.8-4.9); Albumin/Globulin Ratio 1.62 Ratio (1.60-3.17); Alkaline Phosphatase 58 U/L (41-126); BUN/Creat Ratio 17.41 Ratio (12.00-20.00); Blood Urea Nitrogen 29.6 mg/dL (9.0-27.0); Calcium 8.7 mg/dL (8.7-10.3); Carbon Dioxide 26.1 mmol/L (21.6-31.8); Chloride 104 mmol/L (96-109); Globulin 2.1 g/dL (1.6-3.3); Glucose 107 mg/dL (70-110); Magnesium 1.7 mg/dL (1.5-2.4); Potassium 5.5 mmol/L (3.5-5.5); Sodium 137 mmol/L (135-145); Total Bilirubin 0.2 mg/dL (0.3-1.2); Total Protein 5.5 g/dL (6.2-8.2)
--- NOTE | 2023-10-14 10:38 | P.PN ---
Subjective Progress Note Date: 10/14/23 This is a pleasant 73-year-old male patient who follows at the [facility] for his primary care needs. He has a history of chronic and ongoing tobacco dependence of greater than 50 years, hypertension, chronic kidney disease, Crohn's disease, anxiety, previous history of drug abuse. He presented here to the emergency room early this morning after being contacted by the [facility] that his potassium was 6.1. He was having some issues with shortness of breath. Chest x-ray revealed no acute pulmonary process. White count 11.3. Hemoglobin 12.4. Sodium 139. Initial potassium 5.6 currently 4.9. Bicarb 12. BUN 27. Creatinine 1.86. Glucose 230. He is seen today in consultation on the regular medical floor. He is currently sitting up in bed. Awake and alert in no acute distress. He is requiring oxygen at 3 L/min per nasal cannula to maintain O2 saturation in the 90s. He was 88% FiO2 on room air. He has normal saline at 75 MLS per hour. The patient is seen today October 14, 2023 in follow-up on the regular medical floor. He is currently resting comfortably in bed. Awake and alert in no acute distress. Breathing easier today compared to yesterday. He is maintaining O2 saturations in the 90s on 2 L/min per nasal cannula. Ultrasound of the kidneys and bladder revealed no evidence of obstructive uropathy. White count 14.7. Hemoglobin 11.4. Sodium 137. Potassium 5.5. Bicarb 26. BUN 30. Creatinine 1.7. Glucose 107. He is continued on Symbicort, DuoNeb inhalations, prednisone taper. He is currently on D5W with 3 A of bicarb at 75 MLS per hour. Lovenox for DVT prophylaxis. Objective - Vital Signs Vital signs: Vital Signs Temp 97.8 F 10/14/23 07:00 Pulse 75 10/14/23 07:49 Resp 16 10/14/23 00:21 BP 171/89 10/14/23 07:00 Pulse Ox 98 10/14/23 07:00 FiO2 Intake & Output 10/13/23 10/14/23 10/14/23 18:59 06:59 18:59 Intake Total 360 118 Output Total 247 Balance 113 118 Intake: Oral 360 118 Output: Post Void Residual 247 Other: Voiding Method Toilet # Voids 1 2 - Exam GENERAL EXAM: Alert, 73-year-old male patient, on 3 L nasal cannula, comfortable in no apparent distress. HEAD: Normocephalic. EYES: Normal reaction of pupils, equal size. NOSE: Clear with pink turbinates. THROAT: No erythema or exudates. NECK: No masses, no JVD. CHEST: No chest wall deformity. LUNGS: Equal air entry with no crackles, wheeze, rhonchi or dullness. Diminished. CVS: S1 and S2 normal with no audible murmur, regular rhythm. ABDOMEN: No hepatosplenomegaly, normal bowel sounds, no guarding or rigidity. SPINE: No scoliosis or deformity SKIN: No rashes CENTRAL NERVOUS SYSTEM: No focal deficits, tone is normal in all 4 extremities. EXTREMITIES: There is no peripheral edema. No clubbing, no cyanosis. Peripheral pulses are intact. - Labs CBC & Chem 7: 10/14/23 06:26 10/14/23 06:26 Labs: Abnormal Lab Results - Last 24 Hours (Table) 10/13/23 10/13/23 10/14/23 Range/Units 10:04 12:11 06:26 WBC 14.70 H (4.50-10.00) X 10*3/uL RBC 3.91 L (4.40-5.60) X 10*6/uL Hgb 11.4 L (13.0-17.0) g/dL Hct 35.1 L (39.6-50.0) % Chloride 110 H (98-107) mmol/L Carbon Dioxide 12 L (22-30) mmol/L BUN 27 H (9-20) mg/dL Creatinine 1.86 H (0.66-1.25) mg/dL Est GFR (CKD-EPI) (>=60) Glucose 230 H (74-99) mg/dL Magnesium 1.5 L (1.6-2.3) mg/dL Total Bilirubin (0.3-1.2) mg/dL Total Protein (6.2-8.2) g/dL Albumin (3.8-4.9) g/dL Urine Protein 2+ H (Negative) Urine Blood Moderate H (Negative) Urine RBC 17 H (0-5) /hpf Hyaline Casts 23 H (0-2) /lpf Urine Mucus Rare H (None) /hpf 10/14/23 Range/Units 06:26 WBC (4.50-10.00) X 10*3/uL RBC (4.40-5.60) X 10*6/uL Hgb (13.0-17.0) g/dL Hct (39.6-50.0) % Chloride (98-107) mmol/L Carbon Dioxide (22-30) mmol/L BUN 29.6 H (9-20) mg/dL Creatinine 1.7 H (0.66-1.25) mg/dL Est GFR (CKD-EPI) 42 L (>=60) Glucose (74-99) mg/dL Magnesium (1.6-2.3) mg/dL Total Bilirubin 0.2 L (0.3-1.2) mg/dL Total Protein 5.5 L (6.2-8.2) g/dL Albumin 3.4 L (3.8-4.9) g/dL Urine Protein (Negative) Urine Blood (Negative) Urine RBC (0-5) /hpf Hyaline Casts (0-2) /lpf Urine Mucus (None) /hpf Assessment and Plan Assessment: Hyperkalemia secondary to chronic kidney disease, initial potassium 5.6, currently 5.5 Hypomagnesemia, initial level 1.1 currently 1.7 Acute hypoxemic respiratory failure secondary to suspected severe chronic ob structive pulmonary disease Chronic and ongoing tobacco dependence of greater than 50 years Hypertension Anxiety Previous history of drug abuse Plan: The patient was seen and evaluated Kidney/bladder ultrasound, labs and medications reviewed Continued on DuoNeb inhalations, Symbicort, prednisone Currently on D5W with 3 A of bicarb at 75 MLS per hour Nephrology is following Titrate the FiO2 as tolerated Evaluate for possible home oxygen at discharge This patient was seen independently by the pulmonary nurse practitioner addressing pulmonary issues I have personally seen and examined the patient, performed the documentation and the assessment and plan as written. Number of minutes spent on the visit: 25.
[2023-10-14] MEDS: MAGNESIUM SULFATE-D5W PMX 1 GM in DEXTROSE/WATER 1 100ML.BAG IVPB ONE (11:33)
--- NOTE | 2023-10-14 12:29 | P.PN ---
Subjective Patient is seen in follow-up for chronic kidney disease. Renal function stable. Potassium level 5.5. Has been voiding. Denies chest pain or shortness of breath. No vomiting or diarrhea. Vital signs are stable. General: No acute distress. HEENT: Head exam is unremarkable. LUNGS: No audible rhonchi or wheezes. HEART: Rate and Rhythm are regular. ABDOMEN: Nontender. EXTREMITITES: No edema. Objective - Vital Signs Vital signs: Vital Signs Temp 97.8 F 10/14/23 07:00 Pulse 80 10/14/23 12:03 Resp 17 10/14/23 08:00 BP 171/89 10/14/23 07:00 Pulse Ox 98 10/14/23 07:00 FiO2 Intake & Output 10/13/23 10/14/23 10/14/23 18:59 06:59 18:59 Intake Total 360 118 Output Total 247 Balance 113 118 Intake: Oral 360 118 Output: Post Void Residual 247 Other: Voiding Method Toilet # Voids 1 2 - Labs CBC & Chem 7: 10/14/23 06:26 10/14/23 06:26 Labs: Abnormal Lab Results - Last 24 Hours (Table) 10/13/23 10/14/23 10/14/23 Range/Units 12:11 06:26 06:26 WBC 14.70 H (4.50-10.00) X 10*3/uL RBC 3.91 L (4.40-5.60) X 10*6/uL Hgb 11.4 L (13.0-17.0) g/dL Hct 35.1 L (39.6-50.0) % BUN 29.6 H (9.0-27.0) mg/dL Creatinine 1.7 H (0.6-1.5) mg/dL Est GFR (CKD-EPI) 42 L (>=60) Total Bilirubin 0.2 L (0.3-1.2) mg/dL Total Protein 5.5 L (6.2-8.2) g/dL Albumin 3.4 L (3.8-4.9) g/dL Urine Protein 2+ H (Negative) Urine Blood Moderate H (Negative) Urine RBC 17 H (0-5) /hpf Hyaline Casts 23 H (0-2) /lpf Urine Mucus Rare H (None) /hpf Assessment and Plan Plan: Assessment: 1. Chronic kidney disease stage IIIb with creatinine 1.9 in March 2022. Creatinine stable at 1.7 today. 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 Patient completed course of prednisone in 2021 with improvement in proteinuria. This can be secondary IgA due to underlying i nflammatory bowel disease. UA at this admission shows 2+ protein and 17 RBCs. UPC 1.69 g. 2. Hyperkalemia secondary to acidosis and chronic kidney disease. 3. Metabolic acidosis secondary to IV fluids and GI losses. Improved with bicarb drip. 4. Hypomagnesemia secondary to GI losses. Replaced. Improved. 5. Acute on chronic hypoxic respiratory failure secondary to COPD exacerbation. On steroids. Plan: Hep-Lock IV fluids. Encouraged oral intake. Add Lokelma 10 g twice daily. Renal diet. Avoid nephrotoxins. Repeat UA - if shows protein and blood, will order serologies. 24-hour urine protein will be checked outpatient. Potential need for renal biopsy discussed with patient. Add Farxiga. Add magnesium oxide. Avoid nephrotoxins. Repeat potassium level this afternoon. Continue to monitor renal function and urine output. Will benefit from SALVADOR or ARB as well but will hold off due to hyperkalemia. Strongly advised patient to follow-up outpatient 1 week postdischarge.
[2023-10-14] MEDS: SODIUM ZIRCONIUM CYCLOSILICATE 10 GM PACKET PO SCH (12:33)
[2023-10-14] MEDS: DAPAGLIFLOZIN PROPANEDIOL 5 MG TABLET PO SCH (14:22)
--- NOTE | 2023-10-14 16:11 | P.PN ---
Subjective Progress Note Date: 10/14/23 73-year-old male with a PMH of stage III chronic kidney disease, hypertension, Crohn's disease status post bowel resections x 2, COPD with previous nicotine dependence, and former polysubstance abuse. He presented to the emergency department overnight secondary to reports of abnormal labs. [facility] and informed that his potassium was elevated at 6.1. Upon arrival to our facility patient underwent full evaluation. Vital signs upon arrival show blood pressure 160/89, heart rate 94, respiratory rate 26, temp 98.1 F, and SpO2 of 88% on room air. Patient was placed on 3 L supplemental oxygen increasing his SpO2 to 96%. EKG was completed showing normal sinus rhythm at 75 bpm. Chest x-ray was negative for acute cardiopulmonary process. CBC showing leukocytosis with WBC count of 11.3 and stable normocytic anemia with hemoglobin of 12.4. BMP revealing hyperkalemia with potassium of 5.6, and non-anion gap metabolic acidosis with chloride of 111, bicarb 19, and anion gap of 9. Renal function showing BUN of 30, creatinine 1.77, and GFR of 37. Blood glucose was 111. Magnesium was low at 1.1. Liver profile normal findings. Patient admitted under our services with consultation to pulmonology and nephrology. Patient was treated with bronchodilators and steroids. Pulmonary followed the patient during his hospitalization. He will need home O2 on discharge. He will likely receive his oxygen tomorrow per case management. Nephrology discontinued NS and started a bicarb drip. He was started on Lokelma. Hyperkalemia resolved. Discused with Dr. Welsh, Lokelma 10 g PO BID x 3 days, repeat BMP in 2-3 days with outpatient follow up. 10/13 Patient was seen and examined. Breathing 70% better. He would like to go home. Case management will not be able to get him oxygen until tomorrow. We will attempt to get him a nebulized. He has a 50 pack year history of smoking. He will need formal PFTs with Pulmonary for a diagnosis of COPD. CBC WBC 14.7 Hg 11 .4 Hct 35.1. CMP BUN 29.6 Cr 1.7 GFR 42, T. Bili 0.2, alb 3.4. Renal US negative for obstruction. General: non toxic, no distress, appears at stated age Derm: warm, dry Head: atraumatic, normocephalic, symmetric Eyes: EOMI, no lid lag, anicteric sclera Mouth: no lip lesion, mucus membranes moist Cardiovascular: S1S2 reg, no murmur Lungs: End expiratory wheezing bilateral, no rhonchi, no rales , no accessory muscle use Psych: Alert, oriented, appropriate affect Based on my assessment of this patient, this patient meets a moderate complexity level of care. Patient has a diagnosis of COPD severe exacerbation or progression of disease which poses a threat to life or bodily function. Acute respiratory failure with hypoxia COPD exacerbation Acute kidney injury on stage IIIb chronic kidney disease Hyperkalemia secondary to above Non-anion gap metabolic acidosis, secondary to above HypoMag Hypertension History of Crohn's Discussed with Dr. Welsh, Lokelma 10g PO BID x 2 days, repeat BMP in 2-3 days, needs very close outpatient follow up. Discussed with Case management, patient qualifies for home O2, likely to be delivered tomorrow, attempt to deliver nebulizer to bedside. Emphasized importance of Pulmonary follow up for formal testing and diagnosis of COPD. DuoNeb, Prednisone taper, Symbicort INH, Albuterol INH, Lokelma, Farxiga prescribed to pharmacy. CODE STATUS: FULL CODE DVT Prophylaxis: Lovenox SQ GI Prophylaxis: Designated medical POA if patient is not able to make medical decisions for themselves: I have reviewed the following organizational research consultant notes: Pulmonary, Nephrology note. I have reviewed the results of the following tests: CBC, BMP, Renal US. I have ordered the following tests: I have discussed the care of this patient with the following independent historian: Case management and RN regarding discharge planning. I have independently interpreted the following test below: I have discussed the management of this patient with the following physician: Dr. Welsh as above. Objective - Vital Signs Vital signs: Vital Signs Temp 98.0 F 10/14/23 15:00 Pulse 91 10/14/23 15:34 Resp 17 10/14/23 14:00 BP 171/84 10/14/23 15:00 Pulse Ox 96 10/14/23 15:00 FiO2 Intake & Output 10/13/23 10/14/23 10/14/23 18:59 06:59 18:59 Intake Total 360 118 Output Total 247 Balance 113 118 Intake: Oral 360 118 Output: Post Void Residual 247 Other: Voiding Method Toilet Toilet # Voids 1 2 3 - Labs CBC & Chem 7: 10/14/23 06:26 10/14/23 15:19 Labs: Abnormal Lab Results - Last 24 Hours (Table) 10/14/23 10/14/23 Range/Units 06:26 06:26 WBC 14.70 H (4.50-10.00) X 10*3/uL RBC 3.91 L (4.40-5.60) X 10*6/uL Hgb 11.4 L (13.0-17.0) g/dL Hct 35.1 L (39.6-50.0) % BUN 29.6 H (9.0-27.0) mg/dL Creatinine 1.7 H (0.6-1.5) mg/dL Est GFR (CKD-EPI) 42 L (>=60) Total Bilirubin 0.2 L (0.3-1.2) mg/dL Total Protein 5.5 L (6.2-8.2) g/dL Albumin 3.4 L (3.8-4.9) g/dL
[2023-10-14 18:47] LABS: Appearance,Urine Clear (Clear); Bilirubin,Urine Negative (Negative); Blood,Urine Moderate (Negative); Color,Urine Colorless; Glucose,Urine (UA) 3+ (Negative); Ketones,Urine Negative (Negative); Leukocyte Esterase,Urine Negative (Negative); Mucus,Urine Rare /hpf; Nitrite,Urine Negative (Negative); PH, Urine 5.5 (5.0-8.0); Protein,Urine 1+ (Negative); RBC,Urine 13 /hpf (0-5); Specific Gravity,Urine 1.014 (1.001-1.035); Urobilinogen,Urine <2.0 mg/dL (<2.0); WBC,Urine 2 /hpf (0-5)
[2023-10-14 20:29] VITALS: RESP 16
[2023-10-15] MEDS: MAGNESIUM OXIDE 400 MG TAB PO SCH (08:02)
[2023-10-15] MEDS: METOPROLOL TARTRATE 25 MG TAB PO SCH (08:02)
[2023-10-15 09:28] LABS: BUN/Creat Ratio 18.06 Ratio (12.00-20.00); Blood Urea Nitrogen 28.9 mg/dL (9.0-27.0); Calcium 8.8 mg/dL (8.7-10.3); Carbon Dioxide 30.8 mmol/L (21.6-31.8); Chloride 99 mmol/L (96-109); Glucose 92 mg/dL (70-110); Magnesium 1.5 mg/dL (1.5-2.4); Potassium 4.7 mmol/L (3.5-5.5); Sodium 140 mmol/L (135-145)
[2023-10-15] MEDS: MAGNESIUM SULFATE-D5W PMX 1 GM in DEXTROSE/WATER 1 100ML.BAG IVPB ONE (10:15)
--- NOTE | 2023-10-15 10:26 | P.PN ---
Subjective Progress Note Date: 10/15/23 This is a pleasant 73-year-old male patient who follows at the [facility] for his primary care needs. He has a history of chronic and ongoing tobacco dependence of greater than 50 years, hypertension, chronic kidney disease, Crohn's disease, anxiety, previous history of drug abuse. He presented here to the emergency room early this morning after being contacted by the [facility] that his potassium was 6.1. He was having some issues with shortness of breath. Chest x-ray revealed no acute pulmonary process. White count 11.3. Hemoglobin 12.4. Sodium 139. Initial potassium 5.6 currently 4.9. Bicarb 12. BUN 27. Creatinine 1.86. Glucose 230. He is seen today in consultation on the regular medical floor. He is currently sitting up in bed. Awake and alert in no acute distress. He is requiring oxygen at 3 L/min per nasal cannula to maintain O2 saturation in the 90s. He was 88% FiO2 on room air. He has normal saline at 75 MLS per hour. The patient is seen today October 14, 2023 in follow-up on the regular medical floor. He is currently resting comfortably in bed. Awake and alert in no acute distress. Breathing easier today compared to yesterday. He is maintaining O2 saturations in the 90s on 2 L/min per nasal cannula. Ultrasound of the kidneys and bladder revealed no evidence of obstructive uropathy. White count 14.7. Hemoglobin 11.4. Sodium 137. Potassium 5.5. Bicarb 26. BUN 30. Creatinine 1.7. Glucose 107. He is continued on Symbicort, DuoNeb inhalations, prednisone taper. He is currently on D5W with 3 A of bicarb at 75 MLS per hour. Lovenox for DVT prophylaxis. The patient is seen today October 15, 2023 in follow-up on the regular medical floor. He is awake and alert in no acute distress. Resting comfortably in bed. Breathing easier today compared to yesterday. He is continued on oxygen at 2 L/min per nasal cannula. He did qualify for home oxygen with O2 saturation down to 86% on room air during a 6-minute walk. He is continued on Symbicort, DuoNeb inhalations, prednisone taper. Lovenox for DVT prophylaxis. Sodium 140. Potassium 4.7. Bicarb 31. BUN 1329. Creatinine 1.6. Glucose 92. He has been initiated on Lokelma per nephrology. Objective - Vital Signs Vital signs: Vital Signs Temp 98.4 F 10/15/23 07:00 Pulse 76 10/15/23 09:06 Resp 16 10/15/23 07:00 BP 184/106 10/15/23 07:00 Pulse Ox 98 10/15/23 08:51 FiO2 Intake & Output 10/14/23 10/15/23 10/15/23 18:59 06:59 18:59 Intake Total 118 Balance 118 Intake: Oral 118 Other: Voiding Method Toilet Toilet # Voids 3 1 - Exam GENERAL EXAM: Alert, pleasant 73-year-old male patient, on 2 L nasal cannula, in no apparent distress. HEAD: Normocephalic. EYES: Normal reaction of pupils, equal size. NOSE: Clear with pink turbinates. THROAT: No erythema or exudates. NECK: No masses, no JVD. CHEST: No chest wall deformity. LUNGS: Equal air entry with no crackles, wheeze, rhonchi or dullness. Diminished. CVS: S1 and S2 normal with no audible murmur, regular rhythm. ABDOMEN: No hepatosplenomegaly, normal bowel sounds, no guarding or rigidity. SPINE: No scoliosis or deformity SKIN: No rashes CENTRAL NERVOUS SYSTEM: No focal deficits, tone is normal in all 4 extremities. EXTREMITIES: There is no peripheral edema. No clubbing, no cyanosis. Peripheral pulses are intact. - Labs CBC & Chem 7: 10/14/23 06:26 10/15/23 04:45 Labs: Abnormal Lab Results - Last 24 Hours (Table) 10/14/23 10/15/23 Range/Units 18:15 04:45 BUN 28.9 H (9.0-27.0) mg/dL Creatinine 1.6 H (0.6-1.5) mg/dL Est GFR (CKD-EPI) 45 L (>=60) Urine Protein 1+ H (Negative) Urine Glucose (UA) 3+ H (Negative) Urine Blood Moderate H (Negative) Urine RBC 13 H (0-5) /hpf Urine Mucus Rare H (None) /hpf Assessment and Plan Assessment: Hyperkalemia secondary to chronic kidney disease, initial potassium 5.6, currently 4.7. 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 Number of minutes spent on the visit: 23.
--- NOTE | 2023-10-15 11:20 | P.DS ---
Providers Date of admission: 10/13/23 04:13 Expected date of discharge: 10/15/23 Attending physician: Garo Hardy MD Consults: 10/13/23 04:44 Consult Physician Urgent Consulting Provider: Mignon Villalta Consult Reason/Comments: COPD Do you want consulting provider notified?: Yes 10/13/23 10:59 Consult Physician Routine Consulting Provider: Dari Champagne Consult Reason/Comments: SUN on CKD, hyperkalemia Do you want consulting provider notified?: Yes Primary care physician: [facility] Course: 73-year-old male with a PMH of stage III chronic kidney disease, hypertension, Crohn's disease status post bowel resections x 2, COPD with previous nicotine dependence, and former polysubstance abuse. He presented to the emergency department overnight secondary to reports of abnormal labs. Patient was reportedly sent by [facility] and informed that his potassium was elevated at 6.1. Upon arrival to our facility patient underwent full evaluation. Vital signs upon arrival show blood pressure 160/89, heart rate 94, respiratory rate 26, temp 98.1 F, and SpO2 of 88% on room air. Patient was placed on 3 L supplemental oxygen increasing his SpO2 to 96%. EKG was completed showing normal sinus rhythm at 75 bpm. Chest x-ray was negative for acute cardiopulmonary process. CBC showing leukocytosis with WBC count of 11.3 and stable normocytic anemia with hemoglobin of 12.4. BMP revealing hyperkalemia with potassium of 5.6, and non-anion gap metabolic acidosis with chloride of 111, bicarb 19, and anion gap of 9. Renal function showing BUN of 30, creatinine 1.77, and GFR of 37. Blood glucose was 111. Magnesium was low at 1.1. Liver profile normal findings. Patient admitted under our services with consultation to pulmonology and nephrology. Patient was treated with bronchodilators and steroids. Pulmonary followed the patient during his hospitalization. He will need home O2 on discharge. He will likely receive his oxygen tomorrow per case management. Nephrology discontinued NS and started a bicarb drip. He was started on Lokelma. Hyperkalemia resolved. Discussed with Dr. Welsh, Lokelma 10 g PO BID x 3 days, repeat BMP in 2-3 days with outpatient follow up. 10/13 Patient was seen and examined. Breathing 70% better. He would like to go home. Case management will not be able to get him oxygen until tomorrow. We will attempt to get him a nebulized. He has a 50 pack year history of smoking. He will need formal PFTs with Pulmonary for a diagnosis of COPD. CBC WBC 14.7 Hg 11.4 Hct 35.1. CMP BUN 29.6 Cr 1.7 GFR 42, T. Bili 0.2, alb 3.4. Renal US negative for obstruction. 10/14 Patient was seen and examined. No complaints today. BMP K 4.7, BUN 28.9, Cr 1.6, GFR 45. Mag 1.5. [facility]. Nebulizer at bedside. Hopeful plans for discharge home today. He has an appointment already set up with Dr. Castro. Prescribed Lokelma 10g PO BID x 2 days, repeat BMP in 2-3 days, needs very close outpatient follow up with Nephrology. DuoNeb, Prednisone taper, Symbicort INH, Albuterol INH, Lokelma, Farxiga prescribed to pharmacy. General: non toxic, no distress, appears at stated age Derm: warm, dry Head: atraumatic, normocephalic, symmetric Eyes: EOMI, no lid lag, anicteric sclera Mouth: no lip lesion, mucus membranes moist Cardiovascular: S1S2 reg, no murmur Lungs: Decreased BS bilateral, no rhonchi, no rales , no accessory muscle use Psych: Alert, oriented, appropriate affect Discharge Diagnosis: Acute respiratory failure with hypoxia COPD exacerbation Acute kidney injury on stage IIIb chronic kidney disease Hyperkalemia secondary to above Non-anion gap metabolic acidosis, secondary to above HypoMag Hypertension History of Crohn's This complex discharge took 35 minutes to complete. Patient Condition at Discharge: Stable Plan - Discharge Summary New Discharge Prescriptions: New Dapagliflozin Propanediol [Farxiga] 5 mg PO DAILY #30 tab predniSONE See Taper PO DIRECTED #30 tab Albuterol Inhaler [Ventolin Hfa Inhaler] 1 puff INHALATION QID PRN #8 gm PRN Reason: Shortness Of Breath Ipratropium-Albuterol Nebulize [Duoneb 0.5 mg-3 mg/3 ml Soln] 3 ml INHALATION RT-Q2H PRN #120 each PRN Reason: Shortness Of Breath Sodium Zirconium Cyclosilicate [Lokelma] 10 gm PO BID #4 packet Budesonide-Formot 160-4.5 Mcg [Symbicort 160-4.5 Mcg Inhaler] 2 puff INHALATION RT-BID #1 each Continue Escitalopram Oxalate [Lexapro] 10 mg PO DAILY Magnesium Oxide [Mag-Ox] 2,000 mg PO BID Calcium Carbonate 500 mg PO QID Aspirin [Odell Aspirin EC] 81 mg PO DAILY Cyanocobalamin (Vitamin B-12) [Vitamin B-12] 1,000 mcg PO DAILY Cholecalciferol [Vitamin D3 (25 Mcg = 1000 Iu)] 50 mcg PO BID Diphenox-Atrop 2.5-0.025 mg [Lomotil] 2 tab PO QID PRN PRN Reason: Diarrhea Metoprolol Tartrate [Lopressor] 12.5 mg PO BID Cholestyramine/Aspartame [Cholestyramine Light Packet] 4 gm PO TID-W/MEALS Discharge Medication List Cholecalciferol [Vitamin D3 (25 Mcg = 1000 Iu)] 50 mcg PO BID 05/06/21 [History] Cyanocobalamin (Vitamin B-12) [Vitamin B-12] 1,000 mcg PO DAILY 05/06/21 [History] Diphenox-Atrop 2.5-0.025 mg [Lomotil] 2 tab PO QID PRN 01/09/22 [History] Cholestyramine/Aspartame [Cholestyramine Light Packet] 4 gm PO TID-W/MEALS 10/15/22 [History] Escitalopram Oxalate [Lexapro] 10 mg PO DAILY 10/15/22 [History] Magnesium Oxide [Mag-Ox] 2,000 mg PO BID 10/15/22 [History] Metoprolol Tartrate [Lopressor] 12.5 mg PO BID 10/15/22 [History] Aspirin [Odell Aspirin EC] 81 mg PO DAILY 10/13/23 [History] Calcium Carbonate 500 mg PO QID 10/13/23 [History] Albuterol Inhaler [Ventolin Hfa Inhaler] 1 puff INHALATION QID PRN #8 gm 10/14/23 [Rx] Budesonide-Formot 160-4.5 Mcg [Symbicort 160-4.5 Mcg Inhaler] 2 puff INHALATION RT-BID #1 each 10/14/23 [Rx] Dapagliflozin Propanediol [Farxiga] 5 mg PO DAILY #30 tab 10/14/23 [Rx] Ipratropium-Albuterol Nebulize [Duoneb 0.5 mg-3 mg/3 ml Soln] 3 ml INHALATION RT-Q2H PRN #120 each 10/14/23 [Rx] Sodium Zirconium Cyclosilicate [Lokelma] 10 gm PO BID #4 packet 10/14/23 [Rx] predniSONE See Taper PO DIRECTED #30 tab 10/14/23 [Rx] Follow up Appointment(s)/Referral(s): iRchard Paz DO [Doctor of Osteopathic Medicine] - 10/22/23 2:00 pm Ho Welsh DO [STAFF PHYSICIAN] - 11/03/23 9:20 am [facility] [Primary Care Provider] - 1-2 days Ambulatory/Diagnostic Orders: Basic Metabolic Panel [LAB.AMB] Time Frame: 3 Days, Location: None Selected Discharge Disposition: HOME SELF-CARE
--- NOTE | 2023-10-15 12:58 | P.PN ---
Subjective Patient is seen in follow-up for chronic kidney disease. Renal function slightly better. Potassium level 4.7. Has been voiding. Denies chest pain or shortness of breath. No vomiting or diarrhea. Vital signs are stable. General: No acute distress. HEENT: Head exam is unremarkable. LUNGS: No audible rhonchi or wheezes. HEART: Rate and Rhythm are regular. ABDOMEN: Nontender. EXTREMITITES: No edema. Objective - Vital Signs Vital signs: Vital Signs Temp 98.4 F 10/15/23 07:00 Pulse 75 10/15/23 11:59 Resp 16 10/15/23 07:00 BP 184/106 10/15/23 07:00 Pulse Ox 98 10/15/23 08:51 FiO2 Intake & Output 10/14/23 10/15/23 10/15/23 18:59 06:59 18:59 Intake Total 118 Balance 118 Intake: Oral 118 Other: Voiding Method Toilet Toilet Toilet # Voids 3 1 - Labs CBC & Chem 7: 10/14/23 06:26 10/15/23 04:45 Labs: Abnormal Lab Results - Last 24 Hours (Table) 10/14/23 10/15/23 Range/Units 18:15 04:45 BUN 28.9 H (9.0-27.0) mg/dL Creatinine 1.6 H (0.6-1.5) mg/dL Est GFR (CKD-EPI) 45 L (>=60) Urine Protein 1+ H (Negative) Urine Glucose (UA) 3+ H (Negative) Urine Blood Moderate H (Negative) Urine RBC 13 H (0-5) /hpf Urine Mucus Rare H (None) /hpf Assessment and Plan Plan: Assessment: 1. Chronic kidney disease stage IIIb with creatinine 1.9 in March 2022. Creatinine stable at 1.6 today. 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 Patient completed course of prednisone in 2021 with improvement in proteinuria. This can be secondary IgA due to underlying inflammatory bowel disease. UA at this admission shows 2+ protein and 17 RBCs. UPC 1.69 g. Repeat UA showed 1+ protein, 3+ glucose and 13 RBCs. 2. Hyperkalemia secondary to acidosis and chronic kidney disease. Improved. 3. Metabolic acidosis secondary to IV fluids and GI losses. Improved with bicarb drip. 4. Hypomagnesemia secondary to GI losses. On oral magnesium oxide. 5. Acute on chronic hypoxic respiratory failure secondary to COPD exacerbation. On steroids. Plan: Encouraged oral intake. Maintain Lokelma for another day. Renal diet. Avoid nephrotoxins. Maintain Farxiga. Check serologies. 24-hour urine protein will be checked outpatient. Potential need for renal biopsy discussed with patient. Refusing at this time but will readdress outpatient. Increase magnesium oxide to twice daily. Avoid nephrotoxins. Continue to monitor renal function and urine output. Will benefit from SALVADOR or ARB as well but will hold off for now due to hyperkalemia. Strongly advised patient to follow-up outpatient 1 week postdischarge.
[2023-10-15 15:52] VITALS: BP 139/77; TEMP 97.8
[2023-10-15 16:25] VITALS: PULSE 80
[2023-10-15] MEDS ORDERED: MAGNESIUM OXIDE 400 MG TAB PO SCH (21:00)
[2023-10-15 21:03] LABS: Albumin 3.5 g/dL (3.8-4.9); Protein, Total 5.7 g/dL (6.2-8.2)
[2023-10-15 21:19] LABS: Hepatitis A Antibody IgM Nonreactive; Hepatitis B Core IgM Nonreactive; Hepatitis B Surface Antigen Nonreactive; Hepatitis C IgG Antibody Nonreactive
[2023-10-16 00:21] LABS: Anti-DNA, DS unit <1.0 IU/mL; DNA Double-Stranded Negative (Negative)
[2023-10-16 16:08] LABS: Gamma Globulin 0.52 g/dL (0.70-1.50)
== END 2023-10-15 18:54 | disposition home or self-care (01) ==
LOC: EC 03:18 → 6NMEDSUR 04:13
PROVIDERS: ADMIT Internal Medicine; ATTEND Internal Medicine
DX: J96.21 Acute and chronic respiratory failure with hypoxia (principal); J44.1 Chronic obstructive pulmonary disease with (acute) exacerbation; N17.9 Acute kidney failure, unspecified; E87.5 Hyperkalemia; I12.9 Hypertensive chronic kidney disease with stage 1 through stage 4 chronic kidney disease, or unspecified chronic kidney disease; N18.30 Chronic kidney disease, stage 3 unspecified; K50.90 Crohn's disease, unspecified, without complications; Z87.891 Personal history of nicotine dependence; E87.20 Acidosis, unspecified; E83.42 Hypomagnesemia
CPT/HCPCS: 96361 ×3; 96366 ×3; 96365; 36415; 94640 ×5; 94760 ×2; 93005; 82570; 80053 ×2; 80048 ×2; 80074; 84156; 83735 ×3; 84132; 84166; 85025; 85027; 81001 ×2; 84165; 86038; 86225; 86334; 86335; 71046; 76770; G0378 ×3; J3475 ×3; J7512 ×4; 99285

== ENCOUNTER → 2023-10-19 | Outpatient (CLI) | payer OTHER ==
[2023-10-19 16:12] LABS: Blood Urea Nitrogen 31.2 mg/dL (9.0-27.0); Calcium 9.1 mg/dL (8.7-10.3); Carbon Dioxide 29.1 mmol/L (21.6-31.8); Chloride 102 mmol/L (96-109); Glucose 120 mg/dL (70-110); Potassium 5.6 mmol/L (3.5-5.5); Sodium 139 mmol/L (135-145)
== END | disposition home or self-care (01) ==
LOC: LABWHC1 11:40
PROVIDERS: ATTEND Family Medicine
DX: E87.5 Hyperkalemia (principal)
CPT/HCPCS: 36415; 80048

== ENCOUNTER → 2023-11-10 | Outpatient (CLI) | payer OTHER ==
[2023-11-10 16:12] LABS: Blood Urea Nitrogen 15.2 mg/dL (9.0-27.0); Calcium 9.2 mg/dL (8.7-10.3); Carbon Dioxide 25.9 mmol/L (21.6-31.8); Chloride 101 mmol/L (96-109); Glucose 93 mg/dL (70-110); Magnesium 1.2 mg/dL (1.5-2.4); Phosphorus 3.2 mg/dL (2.4-5.1); Potassium 5.9 mmol/L (3.5-5.5); Sodium 137 mmol/L (135-145)
[2023-11-10 16:21] LABS: HCT 39.4 % (39.6-50.0); HGB 11.8 g/dL (13.0-17.0); MCHC 29.9 g/dL (32.0-37.0); MCV 93.4 FL (80.0-97.0); Mean Platelet Volume 9.7 FL (9.5-12.2); NRBC Per 100 WBC 0 X 10*3/uL (0.00-0.01); Platelet Count 359 X 10*3/uL (140-440); RBC 4.22 X 10*6/uL (4.40-5.60); RDW 13.2 % (11.5-14.5); WBC 9.55 X 10*3/uL (4.50-10.00)
[2023-11-10 18:41] LABS: Appearance,Urine Clear (Clear); Bilirubin,Urine Negative (Negative); Blood,Urine Moderate (Negative); Color,Urine Yellow (Yellow); Ketones,Urine Negative (Negative); Nitrite,Urine Negative (Negative); Specific Gravity,Urine 1.017 (1.001-1.030); Urobilinogen,Urine 0.2 E.U./DL
[2023-11-10 18:58] LABS: Bacteria,Urine None Seen (None Seen)
== END | disposition home or self-care (01) ==
LOC: LABWHC1 11:46
PROVIDERS: ATTEND Internal Medicine Nephrology
DX: N18.32 Chronic kidney disease, stage 3b (principal)
CPT/HCPCS: 36415; 80048; 81001; 83735; 84100; 84133; 85027

== ENCOUNTER 2023-11-21 05:14 | Emergency (ER) | payer MEDICARE, OTHER ==
--- NOTE | 2023-11-21 05:25 | ED ---
SOB HPI - General Chief Complaint: Shortness of Breath Stated Complaint: AYUSH Time Seen by Provider: 11/21/23 05:21 Source: patient, EMS, RN notes reviewed, old records reviewed Mode of arrival: EMS Limitations: altered mental status - History of Present Illness Initial Comments: This is a 73-year-old male to the ER for evaluation today. Patient comes in for severe shortness of breath getting progressively worse throughout the night and progressing here in the ER. Patient comes in by EMS for severe respiratory distress but improved with EMS treatment patient does suffer from severe COPD and currently still smokes MD Complaint: shortness of breath, cough, "asthma attack", anxiety -: hour(s) Severity: severe Severity scale (1-10): 9 Consistency: constant Improves With: nothing Known History Of: COPD, asthma Context: recent URI, anxiety, recent illness Associated Symptoms: denies other symptoms - Related Data Home Medications Medication Instructions Recorded Confirmed Cholecalciferol [Vitamin D3 (25 50 mcg PO BID 05/06/21 10/13/23 Mcg = 1000 Iu)] Cyanocobalamin (Vitamin B-12) 1,000 mcg PO DAILY 05/06/21 10/13/23 [Vitamin B-12] Diphenox-Atrop 2.5-0.025 mg 2 tab PO QID PRN 01/09/22 10/13/23 [Lomotil] Cholestyramine/Aspartame 4 gm PO TID-W/MEALS 10/15/22 10/13/23 [Cholestyramine Light Packet] Escitalopram Oxalate [Lexapro] 10 mg PO DAILY 10/15/22 10/13/23 Magnesium Oxide [Mag-Ox] 2,000 mg PO BID 10/15/22 10/13/23 Metoprolol Tartrate [Lopressor] 12.5 mg PO BID 10/15/22 10/13/23 Aspirin [[place] Aspirin EC] 81 mg PO DAILY 10/13/23 10/13/23 Calcium Carbonate 500 mg PO QID 10/13/23 10/13/23 Previous Rx's Medication Instructions Recorded Albuterol Inhaler [Ventolin Hfa 1 puff INHALATION QID PRN #8 gm 10/15/23 Inhaler] Budesonide-Formot 160-4.5 Mcg 2 puff INHALATION RT-BID #1 each 10/15/23 [Symbicort 160-4.5 Mcg Inhaler] Dapagliflozin Propanediol [Farxiga] 5 mg PO DAILY #30 tab 10/15/23 Ipratropium-Albuterol Nebulize 3 ml INHALATION RT-Q4H PRN #120 10/15/23 [Duoneb 0.5 mg-3 mg/3 ml Soln] each predniSONE See Taper PO DIRECTED #30 tab 10/15/23 predniSONE 50 mg PO DAILY #5 tab 11/21/23 Allergies Allergy/AdvReac Type Severity Reaction Status Date / Time etodolac AdvReac Abdominal Verified 11/21/23 05:21 Pain hydrochlorothiazide AdvReac dizziness Verified 11/21/23 05:21 [From Prinzide] & cramps lisinopril [From Prinzide] AdvReac dizziness Verified 11/21/23 05:21 & cramps vardenafil [From Levitra] AdvReac Disoriented Verified 11/21/23 05:21 Review of Systems ROS Statement: Those systems with pertinent positive or pertinent negative responses have been documented in the HPI. ROS Other: All systems not noted in ROS Statement are negative. Past Medical History Past Medical History: GERD/Reflux, Hypertension, Osteoarthritis (OA), Renal Disease Additional Past Medical History / Comment(s): BOWEL RESECTION X2 DUE TO INFECTION., CROHNS, IBS, HERNIATED DISC., COVID JUL 2021., HOSPTALIZED AUG 2021 WITH RASH & TOE WOUND WHICH IS HEALED.,KIDNEY DISEASE-STATES 50-60%., SOB., STA JAIR RECENT DIZZINESS., SEE CARDIOLOGY H & P. History of Any Multi-Drug Resistant Organisms: None Reported Past Surgical History: Appendectomy, Bowel Resection Additional Past Surgical History / Comment(s): "35 YEARS AGO- BOWEL RESECTION AND ILEOCECAL VALVE REMOVED WITH 1 FOOT OF INTESTINE., HAD 2ND BOWEL RESECTION 3 YEARS AGO. Past Anesthesia/Blood Transfusion Reactions: No Reported Reaction Past Psychological History: Anxiety Smoking Status: Former smoker Past Alcohol Use History: None Reported Past Drug Use History: Cocaine, Marijuana, Methamphetamine, Opiates - Past Family History Mother Family Medical History: Coronary Artery Disease (CAD), Diabetes Mellitus Additional Family Medical History / Comment(s): NIDDM Father Family Medical History: Coronary Artery Disease (CAD), Diabetes Mellitus, Hypertension General Exam General appearance: alert, in no apparent distress, anxious Head exam: Present: atraumatic, normocephalic, normal inspection Eye exam: Present: normal appearance, PERRL, EOMI. Absent: scleral icterus, conjunctival injection, periorbital swelling ENT exam: Present: normal exam, mucous membranes moist Neck exam: Present: normal inspection. Absent: tenderness, meningismus, lymphadenopathy Respiratory exam: Present: normal lung sounds bilaterally. Absent: respiratory distress, wheezes, rales, rhonchi, stridor Cardiovascular Exam: Present: regular rate, normal rhythm, normal heart sounds. Absent: systolic murmur, diastolic murmur, rubs, gallop, clicks GI/Abdominal exam: Present: soft, normal bowel sounds. Absent: distended, tenderness, guarding, rebound, rigid Extremities exam: Present: normal inspection, full ROM, normal capillary refill. Absent: tenderness, pedal edema, joint swelling, calf tenderness Back exam: Present: normal inspection Neurological exam: Present: alert, oriented X3, CN II-XII intact Psychiatric exam: Present: normal affect, normal mood Skin exam: Present: warm, dry, intact, normal color. Absent: rash Course Vital Signs 11/21/23 11/21/23 11/21/23 05:15 05:21 05:30 Temperature 97.6 F Pulse Rate 100 94 99 Respiratory 22 Rate Blood Pressure 189/114 156/84 O2 Sat by Pulse 98 96 Oximetry 11/21/23 11/21/23 11/21/23 05:39 06:00 08:00 Temperature Pulse Rate 94 94 98 Respiratory 20 18 Rate Blood Pressure 170/89 190/110 O2 Sat by Pulse 98 96 Oximetry 11/21/23 11/21/23 11/21/23 08:33 08:46 09:06 Temperature 98.1 F Pulse Rate 91 87 98 Respiratory 18 Rate Blood Pressure 171/96 O2 Sat by Pulse 96 Oximetry - Reevaluation(s) Reevaluation #1: 11/21/23 05:25 Medical records reviewed Reevaluation #2: 11/21/23 05:25 Patient symptoms improved and improving Reevaluation #3: 11/21/23 05:25 Patient informed of results and questions answered Reevaluation #4: Was pt. sent in by a medical professional or institution (, PA, CADD OPERATOR, urgent care, hospital, or fdc...) When possible be specific @ -no Did you speak to anyone other than the patient for history (EMS, parent, family, police, friend...)? What history was obtained from this source @ -no Did you review nursing and triage notes (agree or disagree)? Why? @ -agree Are old charts reviewed (outside hosp., previous admission, EMS record, old EKG, old radiological studies, urgent care reports/EKG's, fdc records)? Report findings @ -yes Differential Diagnosis (chest pain, altered mental status, abdominal pain women, abdominal pain men, vaginal bleeding, weakness, fever, dyspnea, syncope, headache, dizziness, GI bleed, back pain, seizure, CVA, palpatations, mental health, musculoskeletal)? @ -prior EKG interpreted by me (3pts min.). @ -yes X-rays interpreted by me (1pt min.). @ -yes negative for acute disease CT interpreted by me (1pt min.). @ -no U/S interpreted by me (1pt. min.). @ -no What testing was considered but not performed or refused? (CT, X-rays, U/S, labs)? Why? @ -none What meds were considered but not given or refused? Why? @ -none Did you discuss the management of the patient with other professionals (pr ofessionals i.e. , PA, CADD OPERATOR, lab, RT, psych nurse, home health care social worker, derrick engineer, teacher, conservation enforcement officer, case preparer and liner)? Give summary @ -no Was smoking cessation discussed for >3mins.? @ -no Was critical care preformed (if so, how long)? @ -no Were there social determinants of health that impacted care today? How? (Homelessness, low income, unemployed, alcoholism, drug addiction, transportation, low edu. Level, literacy, decrease access to med. care, fdc, rehab)? @ -none Was there de-escalation of care discussed even if they declined (Discuss DNR or withdrawal of care, Hospice)? DNR status @ -no What co-morbidities impacted this encounter? (DM, HTN, Smoking, COPD, CAD, Cancer, CVA, ARF, Chemo, Hep., AIDS, mental health diagnosis, sleep apnea, morbid obesity)? @ -none Was patient admitted / discharged? Hospital course, mention meds given and route, prescriptions, significant lab abnormalities, going to OR and other pertinent info. @ - 73 male to ER for evaluation of significant COPD with COPD exacerbation. Patient is in no acute distress here in the ER feels well can be discharged home Discharge Undiagnosed new problem with uncertain prognosis? @ -no Drug Therapy requiring intensive monitoring for toxicity (Heparin, Nitro, Insulin, Cardizem)? @ -no Were any procedures done? @ -no Diagnosis/symptom? @ -COPD exacerbation Acute, or Chronic, or Acute on Chronic? @ -Acute Uncomplicated (without systemic symptoms) or Complicated (systemic symptoms)? @ -Complicated Side effects of treatment? @ -no Exacerbation, Progression, or Severe Exacerbation? @ -exacerbation Poses a threat to life or bodily function? How? (Chest pain, USA, NC, pneumonia, PE, COPD, DKA, ARF, appy, cholecystitis, CVA, Diverticulitis, Homicidal, Suicidal, threat to staff... and all critical care pts) @ -yes-extremes of age Reevaluation #5: Differential Dyspnea: Coronary syndrome, arrhythmia, tamponade, asthma, COPD, pulmonary embolism, pneumonia, pneumothorax, pulmonary effusion, anaphylaxis, diabetic ketoacidosis, flailed chest, pulmonary contusion, diaphragmatic rupture, anemia, neuromuscular, this is not meant to be an all-inclusive list. Medical Decision Making - Medical Decision Making 73 male to ER for evaluation of significant COPD with COPD exacerbation. Patient is in no acute distress here in the ER feels well can be discharged home - Lab Data Result diagrams: 11/21/23 05:25 11/21/23 05:25 Lab Results 11/21/23 11/21/23 11/21/23 Range/Units 05:25 05:25 05:25 WBC 11.5 H (3.8-10.6) k/uL RBC 4.36 (4.30-5.90) m/uL Hgb 11.9 L (13.0-17.5) gm/dL Hct 40.9 (39.0-53.0) % MCV 93.8 (80.0-100.0) fL MCH 27.3 (25.0-35.0) pg MCHC 29.1 L (31.0-37.0) g/dL RDW 13.3 (11.5-15.5) % Plt Count 411 (150-450) k/uL MPV 7.6 Neutrophils % 65 % Lymphocytes % 19 % Monocytes % 8 % Eosinophils % 5 % Basophils % 1 % Neutrophils # 7.5 (1.3-7.7) k/uL Lymphocytes # 2.2 (1.0-4.8) k/uL Monocytes # 0.9 (0-1.0) k/uL Eosinophils # 0.6 (0-0.7) k/uL Basophils # 0.1 (0-0.2) k/uL Hypochromasia Moderate PT 11.1 (10.0-12.5) sec INR 1.0 (<1.2) APTT 23.2 (22.0-30.0) sec Sodium 137 (137-145) mmol/L Potassium 5.6 H (3.5-5.1) mmol/L Chloride 105 (98-107) mmol/L Carbon Dioxide 26 (22-30) mmol/L Anion Gap 6 mmol/L BUN 24 H (9-20) mg/dL Creatinine 1.80 H (0.66-1.25) mg/dL Est GFR (CKD-EPI)AfAm 42 (>60 ml/min/1.73 sqM) Est GFR (CKD-EPI)NonAf 36 (>60 ml/min/1.73 sqM) Glucose 114 H (74-99) mg/dL Plasma Lactic Acid Elmer (0.7-2.0) mmol/L Calcium 9.0 (8.4-10.2) mg/dL Magnesium 1.3 L (1.6-2.3) mg/dL Total Bilirubin 0.3 (0.2-1.3) mg/dL AST 34 (17-59) U/L ALT 25 (4-49) U/L Alkaline Phosphatase 74 (38-126) U/L Troponin I (0.000-0.034) ng/mL NT-Pro-B Natriuret Pep 140 pg/mL Total Protein 6.6 (6.3-8.2) g/dL Albumin 3.7 (3.5-5.0) g/dL 11/21/23 11/21/23 Range/Units 05:25 05:25 WBC (3.8-10.6) k/uL RBC (4.30-5.90) m/uL Hgb (13.0-17.5) gm/dL Hct (39.0-53.0) % MCV (80.0-100.0) fL MCH (25.0-35.0) pg MCHC (31.0-37.0) g/dL RDW (11.5-15.5) % Plt Count (150-450) k/uL MPV Neutrophils % % Lymphocytes % % Monocytes % % Eosinophils % % Basophils % % Neutrophils # (1.3-7.7) k/uL Lymphocytes # (1.0-4.8) k/uL Monocytes # (0-1.0) k/uL Eosinophils # (0-0.7) k/uL Basophils # (0-0.2) k/uL Hypochromasia PT (10.0-12.5) sec INR (<1.2) APTT (22.0-30.0) sec Sodium (137-145) mmol/L Potassium (3.5-5.1) mmol/L Chloride (98-107) mmol/L Carbon Dioxide (22-30) mmol/L Anion Gap mmol/L BUN (9-20) mg/dL Creatinine (0.66-1.25) mg/dL Est GFR (CKD-EPI)AfAm (>60 ml/min/1.73 sqM) Est GFR (CKD-EPI)NonAf (>60 ml/min/1.73 sqM) Glucose (74-99) mg/dL Plasma Lactic Acid Elmer 1.1 (0.7-2.0) mmol/L Calcium (8.4-10.2) mg/dL Magnesium (1.6-2.3) mg/dL Total Bilirubin (0.2-1.3) mg/dL AST (17-59) U/L ALT (4-49) U/L Alkaline Phosphatase (38-126) U/L Troponin I <0.012 (0.000-0.034) ng/mL NT-Pro-B Natriuret Pep pg/mL Total Protein (6.3-8.2) g/dL Albumin (3.5-5.0) g/dL - EKG Data -: EKG Interpreted by Me (EKG is sinus 97 QRS 98 QTc 390) - Radiology Data Radiology results: report reviewed (Chest x-ray is negative for acute disease), image reviewed Disposition Clinical Impression: COPD (chronic obstructive pulmonary disease), Acute exacerbation of chronic obstructive pulmonary disease Disposition: HOME SELF-CARE Condition: Good Instructions (If sedation given, give patient instructions): Acute Bronchitis (ED), Chronic Bronchitis (ED) Prescriptions: predniSONE 50 mg PO DAILY #5 tab Is patient prescribed a controlled substance at d/c from ED?: No Referrals: [facility]inic [Primary Care Provider] - 1-2 days Time of Disposition: 07:00
[2023-11-21] MEDS: IPRATROPIUM-ALBUTEROL 3 ML NEB INHALATION STA (05:28)
[2023-11-21] MEDS: methylPREDNISolone SOD SUCCI 125 MG/2 ML VIAL IV STA (05:33)
[2023-11-21] MEDS: SODIUM CHLORIDE 0.9% 1,000 ML IV STA (05:33)
[2023-11-21 06:15] LABS: Basophils # (A) 0.1 k/uL (0-0.2); Basophils % (A) 1 %; Eosinophils # (A) 0.6 k/uL (0-0.7); Eosinophils % (A) 5 %; HCT 40.9 % (39.0-53.0); HGB 11.9 gm/dL (13.0-17.5); Hypochromasia Moderate; Lymphocytes # (A) 2.2 k/uL (1.0-4.8); Lymphocytes % (A) 19 %; MCH 27.3 pg (25.0-35.0); MCHC 29.1 g/dL (31.0-37.0); MCV 93.8 fL (80.0-100.0); Mean Platelet Volume 7.6; Monocytes # (A) 0.9 k/uL (0-1.0); Monocytes % (A) 8 %; Neutrophils # (A) 7.5 k/uL (1.3-7.7); Neutrophils % (A) 65 %; Platelet Count 411 k/uL (150-450); RBC 4.36 m/uL (4.30-5.90); RDW 13.3 % (11.5-15.5); WBC 11.5 k/uL (3.8-10.6)
[2023-11-21 06:24] LABS: Partial Thromboplastin Time 23.2 sec (22.0-30.0); Prothrombin Time 11.1 sec (10.0-12.5)
[2023-11-21 06:32] LABS: ALT 25 U/L (4-49); AST 34 U/L (17-59); African American GFR (CKD) 42 (>60 ml/min/1.73 sqM); Albumin 3.7 g/dL (3.5-5.0); Alkaline Phosphatase 74 U/L (38-126); Anion Gap 6 mmol/L; Blood Urea Nitrogen 24 mg/dL (9-20); Carbon Dioxide 26 mmol/L (22-30); Chloride 105 mmol/L (98-107); Glucose 114 mg/dL (74-99); Magnesium 1.3 mg/dL (1.6-2.3); Non-African American GFR(CKD) 36 (>60 ml/min/1.73 sqM); Potassium 5.6 mmol/L (3.5-5.1); Sodium 137 mmol/L (137-145); Total Bilirubin 0.3 mg/dL (0.2-1.3); Total Protein 6.6 g/dL (6.3-8.2)
[2023-11-21 06:40] LABS: NT-Pro-B-Type Natriuretic Pept 140 pg/mL
--- NOTE | 2023-11-21 06:52 | XR ---
EXAM: XR Chest, 1 View CLINICAL HISTORY: ITS.REASON XR Reason: dyspnea TECHNIQUE: Frontal view of the chest. COMPARISON: X-ray dated 10/13/2023 FINDINGS: Lungs: Nodular densities are seen within the bilateral perihilar regions likely representing vascular structures. Chronic lung markings are seen bilaterally. No consolidation. Pleural space: Unremarkable. No pneumothorax. Heart: Unremarkable. No cardiomegaly. Mediastinum: Unremarkable. Normal mediastinal contour. Bones/joints: Degenerative changes are seen within the spine and shoulders. No acute fracture. IMPRESSION: No acute findings seen within the chest.
[2023-11-21] MEDS: DEXAMETHASONE SOD PHOSPHATE 10 MG/ML 1 ML VIAL IVP STA (08:30)
[2023-11-21] MEDS: ALBUTEROL NEBULIZED 2.5 MG/3 ML INHALATION STA (08:33)
[2023-11-21 09:35] VITALS: BP 171/96; PULSE 98; RESP 18; TEMP 98.1
== END 2023-11-21 09:17 | disposition home or self-care (01) ==
LOC: EC 05:14
DX: J44.1 Chronic obstructive pulmonary disease with (acute) exacerbation (principal); Z87.891 Personal history of nicotine dependence; Z88.8 Allergy status to other drugs, medicaments and biological substances; Z86.16 Personal history of COVID-19
CPT/HCPCS: 36415; 94640 ×2; 93005; 83880; 80053; 83605; 83735; 84484; 85025; 85610; 85730; 71045; 99285; 96374; 96375; 96361; J1100; J2919

== ENCOUNTER → 2023-12-02 | Outpatient (CLI) | payer MEDICARE, OTHER ==
--- NOTE | 2023-12-02 10:32 | XR ---
EXAMINATION TYPE: XR chest 2V DATE OF EXAM: 12/02/2023 COMPARISON: NONE TECHNIQUE: PA and lateral views submitted. HISTORY: Shortness of breath FINDINGS: The lungs are clear and there is no pneumothorax, pleural effusion, or focal pneumonia. Heart size normal and no overt failure. Osseous structures demonstrate hypertrophic and degenerative changes of the spine. Chronic rib deformities. Hyperexpansion correlate for COPD. IMPRESSION: 1. No acute process.
[2023-12-02 15:44] LABS: HCT 36.1 % (39.6-50.0); HGB 11.1 g/dL (13.0-17.0); MCH 27.7 pg (27.0-32.0); MCHC 30.7 g/dL (32.0-37.0); Mean Platelet Volume 9.7 FL (9.5-12.2); NRBC Per 100 WBC 0 X 10*3/uL (0.00-0.01); Platelet Count 273 X 10*3/uL (140-440); RBC 4.01 X 10*6/uL (4.40-5.60); RDW 13.5 % (11.5-14.5); WBC 12.24 X 10*3/uL (4.50-10.00)
[2023-12-02 15:51] LABS: BUN/Creat Ratio 10.56 Ratio (12.00-20.00); Calcium 8.9 mg/dL (8.7-10.3); Carbon Dioxide 23.2 mmol/L (21.6-31.8); Chloride 100 mmol/L (96-109); Glucose 107 mg/dL (70-110); Magnesium 1.2 mg/dL (1.5-2.4); Phosphorus 2.6 mg/dL (2.4-5.1); Potassium 5.3 mmol/L (3.5-5.5); Sodium 134 mmol/L (135-145)
== END | disposition home or self-care (01) ==
LOC: LABWHC1 09:22
PROVIDERS: ATTEND Internal Medicine Sleep Medicine
DX: N18.32 Chronic kidney disease, stage 3b (principal); D63.1 Anemia in chronic kidney disease; J44.9 Chronic obstructive pulmonary disease, unspecified; N39.0 Urinary tract infection, site not specified; R06.02 Shortness of breath
CPT/HCPCS: 36415; 71046; 80048; 83735; 84100; 85027

== ENCOUNTER → 2023-12-21 | Outpatient (CLI) | payer OTHER ==
[2023-12-21 15:44] LABS: Calcium 8.9 mg/dL (8.7-10.3); Carbon Dioxide 17.3 mmol/L (21.6-31.8); Chloride 111 mmol/L (96-109); Glucose 96 mg/dL (70-110); Potassium 4.9 mmol/L (3.5-5.5); Sodium 139 mmol/L (135-145)
== END | disposition home or self-care (01) ==
LOC: LABWHC1 08:16
PROVIDERS: ATTEND Nurse Practitioner Acute Care
DX: N18.32 Chronic kidney disease, stage 3b (principal)
CPT/HCPCS: 36415; 80048; 83735

== ENCOUNTER → 2024-01-19 | Outpatient (CLI) | payer OTHER, MEDICARE ==
[2024-01-19 15:17] LABS: BUN/Creat Ratio 15.06 Ratio (12.00-20.00); Blood Urea Nitrogen 24.1 mg/dL (9.0-27.0); Calcium 8.8 mg/dL (8.7-10.3); Carbon Dioxide 24.9 mmol/L (21.6-31.8); Chloride 103 mmol/L (96-109); Glucose 87 mg/dL (70-110); Magnesium 1.2 mg/dL (1.5-2.4); Potassium 4.8 mmol/L (3.5-5.5); Sodium 139 mmol/L (135-145)
== END | disposition home or self-care (01) ==
LOC: LABWHC1 08:01
PROVIDERS: ATTEND Internal Medicine Nephrology
DX: E83.42 Hypomagnesemia (principal)
CPT/HCPCS: 36415; 80048; 83735

== ENCOUNTER 2024-03-31 08:58 | Inpatient (IN) | payer OTHER ==
--- NOTE | 2024-03-31 09:35 | ED ---
Chest Pain HPI - General Chief Complaint: Chest Pain Stated Complaint: chest tightness Time Seen by Provider: 03/31/24 09:03 Source: patient, RN notes reviewed Mode of arrival: wheelchair Limitations: no limitations - History of Present Illness Initial Comments: 74-year-old male presents emergency department chief complaint of muscle spasms and tightness. Patient states he has not felt well over the last few days. Patient states he has a history of low magnesium causing severe muscle pain and spasms. Patient states he has had some mild cough and congestion. Possible fever states has been sweating. He has minimal complaints of chest discomfort. He has COPD always has shortness of breath. Denies any leg pain or leg swelling no history of DVT. - Related Data Home Medications Medication Instructions Recorded Confirmed Cholecalciferol [Vitamin D3 (25 50 mcg PO BID 05/06/21 03/31/24 Mcg = 1000 Iu)] Cyanocobalamin (Vitamin B-12) 1,000 mcg PO DAILY 05/06/21 03/31/24 [Vitamin B-12] Cholestyramine/Aspartame 4 gm PO TID-W/MEALS 10/15/22 03/31/24 [Cholestyramine Light Packet] Calcium Carbonate 500 mg PO QID 10/13/23 03/31/24 Empagliflozin [Jardiance] 10 mg PO DAILY 02/17/24 03/31/24 Sodium Zirconium Cyclosilicate 5 gm PO DAILY 02/17/24 03/31/24 [Lokelma] Albuterol Inhaler [Ventolin Hfa 2 puff INHALATION RT-Q4H PRN 03/31/24 03/31/24 Inhaler] Atorvastatin [Lipitor] 40 mg PO HS 03/31/24 03/31/24 Escitalopram [Lexapro] 20 mg PO DAILY 03/31/24 03/31/24 Fluticasone Propion/Salmeterol 1 puff INHALATION RT-BID 03/31/24 03/31/24 [Wixela 100-50 Inhub] Ipratropium-Albuterol Nebulize 3 ml INHALATION RT-Q4H 03/31/24 03/31/24 [Duoneb 0.5 mg-3 mg/3 ml Soln] Magnesium Glycinate 200mg 600 mg PO DAILY 03/31/24 03/31/24 Mesalamine [Asacol Hd] 800 mg PO TID 03/31/24 03/31/24 Metoprolol Succinate (ER) [Toprol 25 mg PO DAILY 03/31/24 03/31/24 Xl] Pantoprazole Sodium [Protonix] 20 mg PO BID 03/31/24 03/31/24 Allergies Allergy/AdvReac Type Severity Reaction Status Date / Time etodolac AdvReac Abdominal Verified 03/31/24 09:02 Pain hydrochlorothiazide AdvReac dizziness Verified 03/31/24 09:02 [From Prinzide] & cramps lisinopril [From Prinzide] AdvReac dizziness Verified 03/31/24 09:02 & cramps vardenafil [From Levitra] AdvReac Disoriented Verified 03/31/24 09:02 Review of Systems ROS Statement: Those systems with pertinent positive or pertinent negative responses have been documented in the HPI. ROS Other: All systems not noted in ROS Statement are negative. EKG Findings - EKG Comments: EKG Findings:: EKG performed at 9: 04 sinus rhythm rate of 88 VT 171 QRS 98 QT/QTc 350/396 - EKG Results: EKG: interpreted by HAY Past Medical History Past Medical History: GERD/Reflux, Hypertension, Osteoarthritis (OA), Renal Disease Additional Past Medical History / Comment(s): BOWEL RESECTION X2 DUE TO INFECTION., CROHNS, IBS, HERNIATED DISC., COVID JUL 2021., HOSPTALIZED AUG 2021 WITH RASH & TOE WOUND WHICH IS HEALED.,KIDNEY DISEASE-STATES 50-60%., SOB., STATES RECENT DIZZINESS., SEE CARDIOLOGY H & P. History of Any Multi-Drug Resistant Organisms: None Reported Past Surgical History: Appendectomy, Bowel Resection Additional Past Surgical History / Comment(s): "35 YEARS AGO- BOWEL RESECTION AND ILEOCECAL VALVE REMOVED WITH 1 FOOT OF INTESTINE., HAD 2ND BOWEL RESECTION 3 YEARS AGO. Past Anesthesia/Blood Transfusion Reactions: No Reported Reaction Past Psychological History: Anxiety Smoking Status: Former smoker Past Alcohol Use History: None Reported Past Drug Use History: None Reported - Past Family History Mother Family Medical History: Coronary Artery Disease (CAD), Diabetes Mellitus Additional Family Medical History / Comment(s): NIDDM Father Family Medical History: Coronary Artery Disease (CAD), Diabetes Mellitus, Hypertension General Exam Limitations: no limitations General appearance: alert, in no apparent distress Head exam: Present: atraumatic, normocephalic, normal inspection Eye exam: Present: normal appearance, PERRL, EOMI. Absent: scleral icterus, conjunctival injection, periorbital swelling ENT exam: Present: normal exam, normal oropharynx, mucous membranes moist Neck exam: Present: normal inspection, full ROM. Absent: tenderness, meningismus, lymphadenopathy Respiratory exam: Present: normal lung sounds bilaterally. Absent: respiratory distress, wheezes, rales, rhonchi, stridor Cardiovascular Exam: Present: regular rate, normal rhythm, normal heart sounds. Absent: systolic murmur, diastolic murmur, rubs, gallop, clicks GI/Abdominal exam: Present: soft, normal bowel sounds. Absent: distended, tenderness, guarding, rebound, rigid Neurological exam: Present: alert, oriented X3, CN II-XII intact, reflexes normal. Absent: motor sensory deficit Skin exam: Present: warm, dry, intact, normal color. Absent: rash Course Vital Signs 03/31/24 03/31/24 03/31/24 08:59 10:09 11:01 Temperature 98 F 98.8 F 99.5 F Pulse Rate 94 76 79 Respiratory 24 17 16 Rate Blood Pressure 133/83 146/91 177/101 O2 Sat by Pulse 98 98 98 Oximetry Chest Pain MDM - MDM Was pt. sent in by a medical professional or institution (YULIANA Medina, MAT MAKING MACHINE TENDER, urgent care, hospital, or [facility]...) When possible be specific @ -No Did you speak to anyone other than the patient for history (EMS, parent, family, police, friend...)? What history was obtained from this source @ -No Did you review nursing and triage notes (agree or disagree)? Why? @ -I reviewed and agree with nursing and triage notes Were old charts reviewed (outside hosp., previous admission, EMS record, old EKG, old radiological studies, urgent care reports/EKG's, [facility] records)? Report findings @ -No old charts were reviewed Differential Diagnosis (chest pain, altered mental status, abdominal pain women, abdominal pain men, vaginal bleeding, weakness, fever, dyspnea, syncope, headache, dizziness, GI bleed, back pain, seizure, CVA, palpatations, mental health, musculoskeletal)? @ -Differential Chest Pain: Stable Angina, Unstable Angina, STEMI, NSTEMI Aortic Dissection, Pneumothorax, Musculoskeletal, Esophageal Spasm GERD, Cholecystitis, Pancreatitis, Zoster, this is not meant to be an all-inclusive list. EKG interpreted by me (3pts min.). @ -As above X-rays interpreted by me (1pt min.). @ -Chest x-ray shows no acute cardiopulmonary process CT interpreted by me (1pt min.). @ -None done U/S interpreted by me (1pt. min.). @ -None done What testing was considered but not performed or refused? (CT, X-rays, U/S, labs )? Why? @ -None What meds were considered but not given or refused? Why? @ -None Did you discuss the management of the patient with other professionals (professionals i.e. , PA, MAT MAKING MACHINE TENDER, lab, RT, psych nurse, protective services social worker, watch train assembler, teacher, freedom of information officer, medical case worker)? Give summary @ -Dr. Grubbs on-call for [facility] emergency department physicians for admission Was smoking cessation discussed for >3mins.? @ -No Was critical care preformed (if so, how long)? @ -No Were there social determinants of health that impacted care today? How? (Homelessness, low income, unemployed, alcoholism, drug addiction, transportation, low edu. Level, literacy, decrease access to med. care, halfway, rehab)? @ -No Was there de-escalation of care discussed even if they declined (Discuss DNR or withdrawal of care, Hospice)? DNR status @ -No What co-morbidities impacted this encounter? (DM, HTN, Smoking, COPD, CAD, Cancer, CVA, ARF, Chemo, Hep., AIDS, mental health diagnosis, sleep apnea, morbid obesity)? @ -Hypomagnesemia, COPD, renal disease Was patient admitted / discharged? Hospital course, mention meds given and route, prescriptions, significant lab abnormalities, going to OR and other pertinent info. @ -Admitted patient found to have magnesium less than 0.4, patient was given 4 g, IV fluids for dehydration patient is improved after some Valium. Patient does have elevated D-dimer will have VQ scan as he has renal disease unable to have CT Undiagnosed new problem with uncertain prognosis? @ -No Drug Therapy requiring intensive monitoring for toxicity (Heparin, Nitro, Insulin, Cardizem)? @ -No Were any procedures done? @ -No Diagnosis/symptom? @ -Hypomagnesemia, muscle spasms, shortness of breath Acute, or Chronic, or Acute on Chronic? @ -Acute Uncomplicated (without systemic symptoms) or Complicated (systemic symptoms)? @ -Complicated Side effects of treatment? @ -No Exacerbation, Progression, or Severe Exacerbation? @ -No Poses a threat to life or bodily function? How? (Chest pain, [place], [place], pneumonia, PE, COPD, DKA, ARF, appy, cholecystitis, CVA, Diverticulitis, Homicidal, Suicidal, threat to staff... and all critical care pts) @ -No Disposition Clinical Impression: Hypomagnesemia, Muscle spasm of back Disposition: ADMITTED IP TO THIS [facility] Condition: Poor Time of Disposition: 11:14
[2024-03-31 09:40] LABS: Basophils # (A) 0.1 k/uL (0-0.2); Basophils % (A) 1 %; Eosinophils # (A) 0.4 k/uL (0-0.7); Eosinophils % (A) 4 %; HCT 37.9 % (39.0-53.0); HGB 12.4 gm/dL (13.0-17.5); Lymphocytes # (A) 2.3 k/uL (1.0-4.8); Lymphocytes % (A) 23 %; MCH 29.4 pg (25.0-35.0); MCHC 32.6 g/dL (31.0-37.0); MCV 90.1 fL (80.0-100.0); Mean Platelet Volume 7.6; Monocytes # (A) 0.7 k/uL (0-1.0); Monocytes % (A) 7 %; Neutrophils # (A) 6.7 k/uL (1.3-7.7); Neutrophils % (A) 65 %; Platelet Count 262 k/uL (150-450); RDW 14.1 % (11.5-15.5); WBC 10.4 k/uL (3.8-10.6)
[2024-03-31 09:53] LABS: INR 1.2 (<1.2); Partial Thromboplastin Time 23.8 sec (22.0-30.0); Prothrombin Time 12.6 sec (10.0-12.5)
[2024-03-31] MEDS: SODIUM CHLORIDE 0.9% 1,000 ML IV STA (10:09)
[2024-03-31] MEDS: ASPIRIN 81 MG PO STA (10:10)
--- NOTE | 2024-03-31 10:10 | XR ---
EXAMINATION TYPE: XR chest 2V DATE OF EXAM: 03/31/2024 10:06 AM CLINICAL INDICATION: Male, 74 years old with history of Chest Pain; [facility] COMPARISON: Chest radiographs from 12/02/2023 TECHNIQUE: XR chest 2V Frontal view of the chest. FINDINGS: Lungs/Pleura: There is no evidence of pleural effusion, focal consolidation, or pneumothorax. Pulmonary vascularity: Unremarkable. Heart/mediastinum: Cardiomediastinal silhouette is unremarkable. Musculoskeletal: No acute osseous pathology. IMPRESSION: No acute cardiopulmonary disease/process.
[2024-03-31 10:12] LABS: ALT 24 U/L (4-49); AST 36 U/L (17-59); African American GFR (CKD) 37 (>60 ml/min/1.73 sqM); Albumin 4.2 g/dL (3.5-5.0); Alkaline Phosphatase 43 U/L (38-126); Anion Gap 11 mmol/L; Blood Urea Nitrogen 21 mg/dL (9-20); Carbon Dioxide 16 mmol/L (22-30); Chloride 109 mmol/L (98-107); Glucose 107 mg/dL (74-99); Non-African American GFR(CKD) 32 (>60 ml/min/1.73 sqM); Potassium 3.8 mmol/L (3.5-5.1); Sodium 136 mmol/L (137-145); Total Bilirubin 0.9 mg/dL (0.2-1.3); Total Protein 6.6 g/dL (6.3-8.2)
[2024-03-31 10:45] LABS: Magnesium <0.4 mg/dL (1.6-2.3)
[2024-03-31] MEDS: SODIUM CHLORIDE 0.9% 1,000 ML IV SCH (10:51)
[2024-03-31] MEDS: SODIUM CHLORIDE 0.9% 500 ML 500 ML IV ONE (10:53)
[2024-03-31] MEDS: MAGNESIUM SULFATE-D5W PMX 1 GM in DEXTROSE/WATER 1 100ML.BAG IVPB SCH (10:58)
[2024-03-31] MEDS ORDERED: NALOXONE 0.4 MG/ML 1 ML VIAL IV PRN (11:16)
[2024-03-31] MEDS ORDERED: ONDANSETRON 4 MG/2 ML VIAL IVP PRN (11:16)
--- NOTE | 2024-03-31 14:46 | NM ---
EXAMINATION TYPE: NM pul vent and perfuse DATE OF EXAM: 03/31/2024 CLINICAL INDICATION: Male, 74 years old with history of elevated D-dimer, SOB; COMPARISON: 03/31/2024 TECHNIQUE: Utilizing inhalation of 38.8 mCi Tc 99m DTPA aerosol and intravenous injection of 5.1 mCi of Tc 99m MAA, ventilation and perfusion images are acquired post injection in multiple projections. FINDINGS: Clubbing of the radiotracer bilaterally. No mismatch defects definitively visualized. IMPRESSION: Nondiagnostic, Suspected radiotracer mixing artifact with clumping bilaterally versus COPD changes. C onsider repeat exam and/or CT.
--- NOTE | 2024-03-31 17:58 | P.HPIM ---
History of Present Illness H&P Date: 03/31/24 74 year old M with PMH of Crohns disease with h/o bowel resection, COPD on 2L [place] home O2, CKD, Hypertension presents to the ED for severe muscle cramping. He reports similar symptoms when his magnesium gets to a low level. Previously got magnesium infusions with Dr. Champagne. He denies any headache, lower extremity edema, nausea or vomiting, fever or chills, cough, chest pain, shortness of breath, dizziness, changes in urination or bowel habits. In the ED he underwent extensive evaluation. BP 160/102, HR 80, T 98.7F, RR 18, 97% on 3L NC. CBC, Coag panel, CMP significant for RBC 4.2, Hg 12.4, Hct 37.9, PT 12.6, INR 1.2, Na 136, Cl 109, bicarb 16, BUN 21, Cr 1.98, glu 107, Ca 7. Mag < 0.4. Troponin < 0.012. COVID, RSV, Flu negative. CXR negative. EKG sinus rhythm. D-Dimer 1.16, VQ scan inconclusive. Patient is admitted for further workup and management. General: non toxic, no distress, appears at stated age Derm: warm, dry Head: atraumatic, normocephalic, symmetric Eyes: EOMI, no lid lag, anicteric sclera Mouth: no lip lesion, mucus membranes moist Cardiovascular: S1S2 reg, no murmur Lungs: Decreased BS bilateral, no rhonchi, no rales , no accessory muscle use Ext: no gross muscle atrophy, no edema, no contractures Neuro: no focal neuro deficits Psych: Alert, oriented, appropriate affect Based on my assessment of this patient, this patient meets a high complexity level of care. Severe hypomagnesemia: Likely inability to absorb magnesium due to Crohns and bowel resection. Status post 4g mag sulfate. Repeat 4g mag sulfate tomorrow morning. Consult Nephrology. Hypocalcemia: 1g Ca gluconate x 1. Tums 500 mg PO QID. Vit D 50 mcg PO BID. HyperCl metabolic acidosis likely due to CKD Chronic kidney disease: Consult Nephrology. Elevated D-Dimer: VQ inconclusive. Low concerns for PE. Crohns disease: Cholestyramine 4g PO TID. Mesalamine 800 mg PO TID. Protonix 20 mg PO BID. Chronic respiratory failure due to COPD not in acute exacerbation: DuoNeb Q4H PRN SOB/wheezing. Hypertension: Metoprolol 25 mg PO QD. CODE STATUS: FULL CODE DVT Prophylaxis: Heparin SQ GI Prophylaxis: Protonix PO Designated medical POA if patient is not able to make medical decisions for themselves: Son I have reviewed the following presales consultant notes: ED note I have reviewed the results of the following tests: As above I have ordered the following tests: As above I have discussed the care of this patient with the following independent historian: AXEL. I have independently interpreted the following test below: EKG I have discussed the management of this patient with the following physician: ED provider Past Medical History Past Medical History: GERD/Reflux, Hypertension, Osteoarthritis (OA), Renal Disease Additional Past Medical History / Comment(s): BOWEL RESECTION X2 DUE TO INFECTION., CROHNS, IBS, HERNIATED DISC., COVID JUL 2021., HOSPTALIZED AUG 2021 WITH RASH & TOE WOUND WHICH IS HEALED.,KIDNEY DISEASE-STATES 50-60%., SOB., STATES RECENT DIZZINESS., SEE CARDIOLOGY H & P. History of Any Multi-Drug Resistant Organisms: None Reported Past Surgical History: Appendectomy, Bowel Resection Additional Past Surgical History / Comment(s): "35 YEARS AGO- BOWEL RESECTION AND ILEOCECAL VALVE REMOVED WITH 1 FOOT OF INTESTINE., HAD 2ND BOWEL RESECTION 3 YEARS AGO. Past Anesthesia/Blood Transfusion Reactions: No Reported Reaction Past Psychological History: Anxiety Smoking Status: Former smoker Past Alcohol Use History: None Reported Past Drug Use History: None Reported - Past Family History Mother Family Medical History: Coronary Artery Disease (CAD), Diabetes Mellitus Additional Family Medical History / Comment(s): NIDDM Father Family Medical History: Coronary Artery Disease (CAD), Diabetes Mellitus, Hyper tension Medications and Allergies Home Medications Medication Instructions Recorded Confirmed Type Cholecalciferol [Vitamin D3 (25 50 mcg PO BID 05/06/21 03/31/24 History Mcg = 1000 Iu)] Cyanocobalamin (Vitamin B-12) 1,000 mcg PO DAILY 05/06/21 03/31/24 History [Vitamin B-12] Cholestyramine/Aspartame 4 gm PO TID-W/MEALS 10/15/22 03/31/24 History [Cholestyramine Light Packet] Calcium Carbonate 500 mg PO QID 10/13/23 03/31/24 History Empagliflozin [Jardiance] 10 mg PO DAILY 02/17/24 03/31/24 History Sodium Zirconium Cyclosilicate 5 gm PO DAILY 02/17/24 03/31/24 History [Lokelma] Albuterol Inhaler [Ventolin Hfa 2 puff INHALATION RT-Q4H PRN 03/31/24 03/31/24 History Inhaler] Atorvastatin [Lipitor] 40 mg PO HS 03/31/24 03/31/24 History Escitalopram [Lexapro] 20 mg PO DAILY 03/31/24 03/31/24 History Fluticasone Propion/Salmeterol 1 puff INHALATION RT-BID 03/31/24 03/31/24 History [Wixela 100-50 Inhub] Ipratropium-Albuterol Nebulize 3 ml INHALATION RT-Q4H 03/31/24 03/31/24 History [Duoneb 0.5 mg-3 mg/3 ml Soln] Magnesium Glycinate 200mg 600 mg PO DAILY 03/31/24 03/31/24 History Mesalamine [Asacol Hd] 800 mg PO TID 03/31/24 03/31/24 History Metoprolol Succinate (ER) [Toprol 25 mg PO DAILY 03/31/24 03/31/24 History Xl] Pantoprazole Sodium [Protonix] 20 mg PO BID 03/31/24 03/31/24 History Allergies Allergy/AdvReac Type Severity Reaction Status Date / Time etodolac AdvReac Abdominal Verified 03/31/24 11:42 Pain hydrochlorothiazide AdvReac dizziness Verified 03/31/24 11:42 [From Prinzide] & cramps lisinopril [From Prinzide] AdvReac dizziness Verified 03/31/24 11:42 & cramps vardenafil [From Levitra] AdvReac Disoriented Verified 03/31/24 11:42 Physical Exam Vitals: Vital Signs Temp Pulse Resp BP Pulse Ox 03/31/24 17:03 98.6 F 92 18 127/76 98 03/31/24 16:47 64 18 146/74 97 03/31/24 16:15 98.3 F 91 18 163/112 95 03/31/24 15:55 98.8 F 76 18 153/97 96 03/31/24 14:51 98.7 F 80 18 160/102 97 03/31/24 11:55 98.9 F 84 18 174/107 96 03/31/24 11:52 98 03/31/24 11:01 99.5 F 79 16 177/101 98 03/31/24 10:09 98.8 F 76 17 146/91 98 03/31/24 08:59 98 F 94 24 133/83 98 Intake and Output 03/31/24 03/31/24 03/31/24 06:59 14:59 22:59 Other: Weight 99.79 kg Results CBC & Chem 7: 03/31/24 09:22 03/31/24 09:22 Labs: Abnormal Lab Results - Last 24 Hours (Table) 03/31/24 03/31/24 03/31/24 Range/Units 09:22 09:22 09:22 RBC 4.20 L (4.30-5.90) m/uL Hgb 12.4 L (13.0-17.5) gm/dL Hct 37.9 L (39.0-53.0) % PT 12.6 H (10.0-12.5) sec INR 1.2 H (<1.2) D-Dimer 1.16 H (<0.60) mg/L FEU Sodium 136 L (137-145) mmol/L Chloride 109 H (98-107) mmol/L Carbon Dioxide 16 L (22-30) mmol/L BUN 21 H (9-20) mg/dL Creatinine 1.98 H (0.66-1.25) mg/dL Glucose 107 H (74-99) mg/dL Calcium 7.0 L (8.4-10.2) mg/dL Magnesium <0.4 L* (1.6-2.3) mg/dL
[2024-03-31] MEDS: AZITHROMYCIN 500 MG TAB PO SCH (18:39)
[2024-03-31] MEDS: CALCIUM CARBONATE 500 MG CHEWABLE PO SCH (18:40)
[2024-03-31] MEDS: CALCIUM GLUCONATE IN NACL 1 GM in SALINE 1 100ML.BAG IVPB ONE (18:54)
[2024-03-31] MEDS: IPRATROPIUM-ALBUTEROL 3 ML NEB INHALATION PRN (19:34)
[2024-03-31] MEDS: HEPARIN SODIUM,PORCINE 5,000 UNIT/ML 1 ML VIAL SQ SCH (20:55)
[2024-03-31] MEDS: ATORVASTATIN 40 MG TAB PO SCH (20:56)
[2024-03-31] MEDS: CHOLECALCIFEROL 25 MCG (1000 IU) TABLET PO SCH (20:56)
[2024-03-31] MEDS: BALSALAZIDE DISODIUM 750 MG CAPSULE PO SCH (21:00)
[2024-04-01 07:41] LABS: African American GFR (CKD) 40 (>60 ml/min/1.73 sqM); Anion Gap 7 mmol/L; Blood Urea Nitrogen 19 mg/dL (9-20); Calcium 7.2 mg/dL (8.4-10.2); Carbon Dioxide 21 mmol/L (22-30); Chloride 114 mmol/L (98-107); Glucose 107 mg/dL (74-99); Magnesium 1.1 mg/dL (1.6-2.3); Non-African American GFR(CKD) 34 (>60 ml/min/1.73 sqM); Sodium 142 mmol/L (137-145)
[2024-04-01] MEDS: MAGNESIUM SULFATE-D5W PMX 1 GM in DEXTROSE/WATER 1 100ML.BAG IVPB SCH (08:39)
[2024-04-01] MEDS: SODIUM ZIRCONIUM CYCLOSILICATE 10 GM PACKET PO SCH (08:40)
[2024-04-01] MEDS: ESCITALOPRAM 20 MG TAB PO SCH (08:40)
[2024-04-01] MEDS: METOPROLOL SUCCINATE (ER) 25 MG TAB.ER.24H PO SCH (08:40)
[2024-04-01] MEDS: PANTOPRAZOLE 40 MG TABLET PO SCH (08:40)
[2024-04-01] MEDS: CYANOCOBALAMIN 500 MCG TAB PO SCH (08:40)
[2024-04-01] MEDS: CHOLESTYRAMINE (WITH SUGAR) 4 GM PACKET PO SCH (08:41)
--- NOTE | 2024-04-01 09:17 | P.PN ---
Subjective Progress Note Date: 04/01/24 74 year old M with PMH of Crohns disease with h/o bowel resection, COPD on 2L [place] home O2, CKD, Hypertension presents to the ED for severe muscle cramping. He reports similar symptoms when his magnesium gets to a low level. Previously got magnesium infusions with Dr. Champagne. He denies any headache, lower extremity edema, nausea or vomiting, fever or chills, cough, chest pain, shortness of breath, dizziness, changes in urination or bowel habits. In the ED he underwent extensive evaluation. BP 160/102, HR 80, T 98.7F, RR 18, 97% on 3L NC. CBC, Coag panel, CMP significant for RBC 4.2, Hg 12.4, Hct 37.9, PT 12.6, INR 1.2, Na 136, Cl 109, bicarb 16, BUN 21, Cr 1.98, glu 107, Ca 7. Mag < 0.4. Troponin < 0.012. COVID, RSV, Flu negative. CXR negative. EKG sinus rhythm. D-Dimer 1.16, VQ scan inconclusive. Patient is admitted for further workup and management. 04/01 Patient was seen and examined. Muscle cramping improved. BMP Cl 114, bicarb 21, Cr 1.87, glu 107, Ca 7.2. Mag 1.1. Discussed with Dr. Welsh, infuse Mag suflate over 8 hours and stop Protonix. General: non toxic, no distress, appears at stated age Derm: warm, dry Head: atraumatic, normocephalic, symmetric Eyes: EOMI, no lid lag, anicteric sclera Mouth: no lip lesion, mucus membranes moist Cardiovascular: S1S2 reg, no murmur Lungs: Decreased BS bilateral, no rhonchi, no rales , no accessory muscle use Ext: no gross muscle atrophy, no edema, no contractures Neuro: no focal neuro deficits Psych: Alert, oriented, appropriate affect Based on my assessment of this patient, this patient meets a high complexity level of care. Severe hypomagnesemia: Likely inability to absorb magnesium due to Crohns and bowel resection. Protonix also known to impair Mag absorption. Status post 4g mag sulfate. Repeat 4g mag sulfate today to infuse over 8 hours. Stop Protonix. Consult Nephrology. Hypocalcemia: 1g Ca gluconate x 1 03/31. Tums 500 mg PO QID. Vit D 50 mcg PO BID. Obtain ionized Ca. HyperCl metabolic acidosis likely due to CKD Chronic kidney disease: Consult Nephrology. Elevated D-Dimer: VQ inconclusive. Low concerns for PE. Crohns disease: Cholestyramine 4g PO TID. Mesalamine 800 mg PO TID. Chronic respiratory failure due to COPD not in acute exacerbation: DuoNeb Q4H PRN SOB/wheezing. Hypertension: Metoprolol 25 mg PO QD. CODE STATUS: FULL CODE DVT Prophylaxis: Heparin SQ GI Prophylaxis: Protonix PO Designated medical POA if patient is not able to make medical decisions for themselves: Son I have reviewed the following business consultant notes: I have reviewed the results of the following tests: Mag KVNG I have ordered the following tests: KVNG Mag I have discussed the care of this patient with the following independent his roopa: AXEL. I have independently interpreted the following test below: I have discussed the management of this patient with the following physician: Dr. Welsh as above Objective - Vital Signs Vital signs: Vital Signs Temp 97.5 F L 04/01/24 07:49 Pulse 76 04/01/24 07:59 Resp 19 04/01/24 07:49 BP 140/80 04/01/24 07:49 Pulse Ox 98 04/01/24 07:49 FiO2 Intake & Output 03/31/24 04/01/24 04/01/24 18:59 06:59 18:59 Intake Total 550 590 Balance 550 590 Weight 99.79 kg Intake: Intake, IV Titration 550 Amount Magnesium Sulfate-D5w Pmx 400 1 gm In Dextrose/Water 1 100ml.bag @ 100 mls/hr IVPB Q1H ANGELA Rx#: [id number] Sodium Chloride 0.9% 1, 150 000 ml @ 75 mls/hr IV . [id number] ANGELA Rx#:[id number] Oral 590 Other: Voiding Method Toilet # Voids 1 # Bowel Movements 1 - Labs CBC & Chem 7: 03/31/24 09:22 04/01/24 06:56 Labs: Abnormal Lab Results - Last 24 Hours (Table) 03/31/24 03/31/24 03/31/24 Range/Units 09:22 09:22 09:22 RBC 4.20 L (4.30-5.90) m/uL Hgb 12.4 L (13.0-17.5) gm/dL Hct 37.9 L (39.0-53.0) % PT 12.6 H (10.0-12.5) sec INR 1.2 H (<1.2) D-Dimer 1.16 H (<0.60) mg/L FEU Sodium 136 L (137-145) mmol/L Chloride 109 H (98-107) mmol/L Carbon Dioxide 16 L (22-30) mmol/L BUN 21 H (9-20) mg/dL Creatinine 1.98 H (0.66-1.25) mg/dL Glucose 107 H (74-99) mg/dL Calcium 7.0 L (8.4-10.2) mg/dL Magnesium <0.4 L* (1.6-2.3) mg/dL 04/01/24 Range/Units 06:56 RBC (4.30-5.90) m/uL Hgb (13.0-17.5) gm/dL Hct (39.0-53.0) % PT (10.0-12.5) sec INR (<1.2) D-Dimer (<0.60) mg/L FEU Sodium (137-145) mmol/L Chloride 114 H (98-107) mmol/L Carbon Dioxide 21 L (22-30) mmol/L BUN (9-20) mg/dL Creatinine 1.87 H (0.66-1.25) mg/dL Glucose 107 H (74-99) mg/dL Calcium 7.2 L (8.4-10.2) mg/dL Magnesium 1.1 L (1.6-2.3) mg/dL
--- NOTE | 2024-04-01 10:59 | P.NPCON ---
History of Present Illness - Reason for Consult chronic renal failure - History of Present Illness Reason for consultation: Chronic kidney disease and hypomagnesemia History of present illness: Patient is a 74-year-old male seen in renal consultation for chronic kidney disease and hypomagnesemia. 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 Patient also has history of hypomagnesemia and was receiving IV magnesium infusions outpatient which were stopped about 3 weeks ago. Patient was on magnesium oxide which he stopped taking but does admit to taking magnesium glycinate 600 mg once daily. Patient states about a week ago he started developing muscle spasms all over his body. He came to the hospital for further workup. Magnesium level was noted to be undetectable and he received 4 g of IV magnesium sulfate. Magnesium of this morning is 1.1 and he is receiving more magnesium supplementation. GFR is near baseline with creatinine 1.87. He denies chest pain or shortness of breath. Oral intake fair. Patient does have history of Crohn's disease with bowel resection in the past. Also has history of hyperkalemia. Potassium level normal this admission. Patient does have history of COPD and is maintained on home oxygen. Currently on 2 L. He denies use of diuretics. No significant diarrhea. He does take proton pump inhibitor at home. Vital signs are stable. General: No acute distress. HEENT: Head exam is unremarkable. On nasal cannula. LUNGS: Scattered wheezing. HEART: Rate and Rhythm are regular. ABDOMEN: Nontender. EXTREMITITES: No edema. Past Medical History Past Medical History: GERD/Reflux, Hypertension, Osteoarthritis (OA), Renal Disease Additional Past Medical History / Comment(s): BOWEL RESECTION X2 DUE TO INFECTION., CROHNS, IBS, HERNIATED DISC., COVID JUL 2021., HOSPTALIZED AUG 2021 WITH RASH & TOE WOUND WHICH IS HEALED.,KIDNEY DISEASE-STATES 50-60%., SOB., STATES RECENT DIZZINESS., SEE CARDIOLOGY H & P. History of Any Multi-Drug Resistant Organisms: None Reported Past Surgical History: Appendectomy, Bowel Resection Additional Past Surgical History / Comment(s): "35 YEARS AGO- BOWEL RESECTION AND ILEOCECAL VALVE REMOVED WITH 1 FOOT OF INTESTINE., HAD 2ND BOWEL RESECTION 3 YEARS AGO. Past Anesthesia/Blood Transfusion Reactions: No Reported Reaction Past Psychological History: Anxiety Smoking Status: Former smoker Past Alcohol Use History: None Reported Past Drug Use History: None Reported - Past Family History Mother Family Medical History: Coronary Artery Disease (CAD), Diabetes Mellitus Additional Family Medical History / Comment(s): NIDDM Father Family Medical History: Coronary Artery Disease (CAD), Diabetes Mellitus, Hypertension Medications and Allergies Home Medications Medication Instructions Recorded Confirmed Type Cholecalciferol [Vitamin D3 (25 50 mcg PO BID 05/06/21 03/31/24 History Mcg = 1000 Iu)] Cyanocobalamin (Vitamin B-12) 1,000 mcg PO DAILY 05/06/21 03/31/24 History [Vitamin B-12] Cholestyramine/Aspartame 4 gm PO TID-W/MEALS 10/15/22 03/31/24 History [Cholestyramine Light Packet] Calcium Carbonate 500 mg PO QID 10/13/23 03/31/24 History Empagliflozin [Jardiance] 10 mg PO DAILY 02/17/24 03/31/24 History Sodium Zirconium Cyclosilicate 5 gm PO DAILY 02/17/24 03/31/24 History [Lokelma] Albuterol Inhaler [Ventolin Hfa 2 puff INHALATION RT-Q4H PRN 03/31/24 03/31/24 History Inhaler] Atorvastatin [Lipitor] 40 mg PO HS 03/31/24 03/31/24 History Escitalopram [Lexapro] 20 mg PO DAILY 03/31/24 03/31/24 History Fluticasone Propion/Salmeterol 1 puff INHALATION RT-BID 03/31/24 03/31/24 History [Wixela 100-50 Inhub] Ipratropium-Albuterol Nebulize 3 ml INHALATION RT-Q4H 03/31/24 03/31/24 History [Duoneb 0.5 mg-3 mg/3 ml Soln] Magnesium Glycinate 200mg 600 mg PO DAILY 03/31/24 03/31/24 History Mesalamine [Asacol Hd] 800 mg PO TID 03/31/24 03/31/24 History Metoprolol Succinate (ER) [Toprol 25 mg PO DAILY 03/31/24 03/31/24 History Xl] Pantoprazole Sodium [Protonix] 20 mg PO BID 03/31/24 03/31/24 History Allergies Allergy/AdvReac Type Severity Reaction Status Date / Time etodolac AdvReac Abdominal Verified 03/31/24 11:42 Pain hydrochlorothiazide AdvReac dizziness Verified 03/31/24 11:42 [From Prinzide] & cramps lisinopril [From Prinzide] AdvReac dizziness Verified 03/31/24 11:42 & cramps vardenafil [From Levitra] AdvReac Disoriented Verified 03/31/24 11:42 Physical Exam Vitals: Vital Signs Temp Pulse Pulse Resp BP BP Pulse Ox 04/01/24 07:59 76 04/01/24 07:49 97.5 F L 72 69 19 140/80 98 04/01/24 02:00 97.7 F 76 16 137/82 97 03/31/24 20:00 98.8 F 84 16 124/70 97 03/31/24 19:50 84 16 03/31/24 19:43 92 03/31/24 19:36 89 03/31/24 18:18 97.6 F 89 18 154/85 03/31/24 17:03 98.6 F 92 18 127/76 98 03/31/24 16:47 64 18 146/74 97 03/31/24 16:15 98.3 F 91 18 163/112 95 03/31/24 15:55 98.8 F 76 18 153/97 96 03/31/24 14:51 98.7 F 80 18 160/102 97 03/31/24 11:55 98.9 F 84 18 174/107 96 03/31/24 11:52 98 03/31/24 11:01 99.5 F 79 16 177/101 98 Intake and Output 03/31/24 04/01/24 04/01/24 22:59 06:59 14:59 Intake Total 550 590 Balance 550 590 Intake: Intake, IV Titration 550 Amount Magnesium Sulfate-D5w Pmx 400 1 gm In Dextrose/Water 1 100ml.bag @ 100 mls/hr IVPB Q1H ANGELA Rx#: [id number] Sodium Chloride 0.9% 1, 150 000 ml @ 75 mls/hr IV . [id number] ANGELA Rx#:[id number] Oral 590 Other: Voiding Method Toilet Toilet # Voids 1 # Bowel Movements 1 Weight 99.79 kg Results - Lab Results Most recent lab results Calcium 7.2 mg/dL (8.4-10.2) L 04/01/24 06:56 Magnesium 1.1 mg/dL (1.6-2.3) L 04/01/24 06:56 03/31/24 09:22 04/01/24 06:56 Assessment and Plan Plan: Assessment: 1. Chronic kidney disease stage IIIb with baseline creatinine 1.8-2 secondary to IgA nephropathy. GFR at baseline. 2. 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 3. Metabolic acidosis secondary to chronic kidney disease and GI losses. Improved. 4. Hypocalcemia secondary to hypomagnesemia induced PTH suppression. 5. Crohn's disease. 6. Chronic respiratory failure maintained on home O2. Plan: Encouraged oral intake. Magnesium being replaced. Resume oral magnesium supplementation starting tomorrow depending on magnesium level. IV magnesium infusions have also been set up and to be started next week. Avoid proton pump inhibitors. Okay to use H2 zaid. Check UA. Continue to monitor renal function and urine output. Thank you for the consultation. I will continue to follow the patient with you during his hospital stay.
[2024-04-01 15:15] LABS: Appearance,Urine Clear (Clear); Bilirubin,Urine Negative (Negative); Blood,Urine Moderate (Negative); Color,Urine Light Yellow; Glucose,Urine (UA) Negative (Negative); Ketones,Urine Negative (Negative); Leukocyte Esterase,Urine Negative (Negative); Nitrite,Urine Negative (Negative); Protein,Urine Trace (Negative); RBC,Urine 26 /hpf (0-5); Specific Gravity,Urine 1.013 (1.001-1.035); Urobilinogen,Urine <2.0 mg/dL (<2.0); WBC,Urine 2 /hpf (0-5)
[2024-04-02 10:52] LABS: BUN/Creat Ratio 9.41 Ratio (12.00-20.00); Calcium 6.9 mg/dL (8.7-10.3); Carbon Dioxide 18.3 mmol/L (21.6-31.8); Chloride 110 mmol/L (96-109); Glucose 107 mg/dL (70-110); Magnesium 1.7 mg/dL (1.5-2.4); Sodium 138 mmol/L (135-145)
[2024-04-02] MEDS: MAGNESIUM SULFATE-D5W PMX 1 GM in DEXTROSE/WATER 1 100ML.BAG IVPB SCH (12:34)
--- NOTE | 2024-04-02 13:30 | P.DS ---
Providers Date of admission: 03/31/24 11:19 Expected date of discharge: 04/02/24 Attending physician: Darin Edwards MD Consults: 03/31/24 17:57 Consult Physician Routine Consulting Provider: Ho Welsh Consult Reason/Comments: hypomag Do you want consulting provider notified?: Yes Primary care physician: [facility] Course: 74 year old M with PMH of Crohns disease with h/o bowel resection, COPD on 2L [place] home O2, CKD, Hypertension presents to the ED for severe muscle cramping. He reports similar symptoms when his magnesium gets to a low level. Previously got magnesium infusions with Dr. Champagne. He denies any headache, lower extremity edema, nausea or vomiting, fever or chills, cough, chest pain, shortness of breath, dizziness, changes in urination or bowel habits. In the ED he underwent extensive evaluation. BP 160/102, HR 80, T 98.7F, RR 18, 97% on 3L NC. CBC, Coag panel, CMP significant for RBC 4.2, Hg 12.4, Hct 37.9, PT 12.6, INR 1.2, Na 136, Cl 109, bicarb 16, BUN 21, Cr 1.98, glu 107, Ca 7. Mag < 0.4. Troponin < 0.012. COVID, RSV, Flu negative. CXR negative. EKG sinus rhythm. D-Dimer 1.16, VQ scan inconclusive. Patient is admitted for further workup and management. 04/01 Patient was seen and examined. Muscle cramping improved. BMP Cl 114, bicarb 21, Cr 1.87, glu 107, Ca 7.2. Mag 1.1. Discussed with Dr. Welsh, infuse Mag suflate over 8 hours and stop Protonix. 04/02 Patient was seen and examined. Symptoms resolved. BMP Cl 110, bicarb 18.3, Cr 1.7, Ca 6.9. Mag 1.7. Ionized Ca 4.3. Dr. Champagne recommends 2g mag sulfate and discharge home on home dose of PO magnesium. Plans to repeat BMP and Mag in [address] Champagne to arrange for weekly infusions. General: non toxic, no distress, appears at stated age Derm: warm, dry Head: atraumatic, normocephalic, symmetric Eyes: EOMI, no lid lag, anicteric sclera Mouth: no lip lesion, mucus membranes moist Cardiovascular: good distal perfusion in all 4 extremities Lungs: breathing comfortably, no accessory muscle use Ext: no gross muscle atrophy, no edema, no contractures Neuro: no focal neuro deficits Psych: Alert, oriented, appropriate affect Discharge Diagnosis: Severe hypomagnesemia: Likely inability to absorb magnesium due to Crohns and bowel resection. Protonix also known to impair Mag absorption. Stop Protonix. Outpatient Nephrology follow up for weekly infusions. Repeat BMP and Mag in 3 days. Hypocalcemia: 1g Ca gluconate x 1 03/31. Tums 500 mg PO QID. Vit D 50 mcg PO BID. Ionized Ca 4.3. HyperCl metabolic acidosis likely due to CKD Chronic kidney disease stage IIIb Elevated D-Dimer: VQ inconclusive. Low concerns for PE. Crohns disease: Cholestyramine 4g PO TID. Mesalamine 800 mg PO TID. Chronic respiratory failure due to COPD not in acute exacerbation: DuoNeb Q4H PRN SOB/wheezing. Hypertension: Metoprolol 25 mg PO QD. This complex discharge took 35 minutes to complete. Patient Condition at Discharge: Stable Plan - Discharge Summary Discharge Rx Participant: No New Discharge Prescriptions: Continue Calcium Carbonate 500 mg PO QID Sodium Zirconium Cyclosilicate [Lokelma] 5 gm PO DAILY Empagliflozin [Jardiance] 10 mg PO DAILY Escitalopram [Lexapro] 20 mg PO DAILY Magnesium Glycinate 200mg 600 mg PO DAILY Fluticasone Propion/Salmeterol [Wixela 100-50 Inhub] 1 puff INHALATION RT-BID Mesalamine [Asacol Hd] 800 mg PO TID Albuterol Inhaler [Ventolin Hfa Inhaler] 2 puff INHALATION RT-Q4H PRN PRN Reason: Shortness Of Breath Cyanocobalamin (Vitamin B-12) [Vitamin B-12] 1,000 mcg PO DAILY Cholecalciferol [Vitamin D3 (25 Mcg = 1000 Iu)] 50 mcg PO BID Cholestyramine/Aspartame [Cholestyramine Light Packet] 4 gm PO TID-W/MEALS Metoprolol Succinate (ER) [Toprol XL] 25 mg PO DAILY Atorvastatin [Lipitor] 40 mg PO HS Ipratropium-Albuterol Nebulize [Duoneb 0.5 mg-3 mg/3 ml Soln] 3 ml INHALATION RT-Q4H Discontinued Pantoprazole Sodium [Protonix] 20 mg PO BID Discharge Medication List Cholecalciferol [Vitamin D3 (25 Mcg = 1000 Iu)] 50 mcg PO BID 05/06/21 [History] Cyanocobalamin (Vitamin B-12) [Vitamin B-12] 1,000 mcg PO DAILY 05/06/21 [History] Cholestyramine/Aspartame [Cholestyramine Light Packet] 4 gm PO TID-W/MEALS 10/15/22 [History] Calcium Carbonate 500 mg PO QID 10/13/23 [History] Empagliflozin [Jardiance] 10 mg PO DAILY 02/17/24 [History] Sodium Zirconium Cyclosilicate [Lokelma] 5 gm PO DAILY 02/17/24 [History] Albuterol Inhaler [Ventolin Hfa Inhaler] 2 puff INHALATION RT-Q4H PRN 03/31/24 [History] Atorvastatin [Lipitor] 40 mg PO HS 03/31/24 [History] Escitalopram [Lexapro] 20 mg PO DAILY 03/31/24 [History] Fluticasone Propion/Salmeterol [Wixela 100-50 Inhub] 1 puff INHALATION RT-BID 03/31/24 [History] Ipratropium-Albuterol Nebulize [Duoneb 0.5 mg-3 mg/3 ml Soln] 3 ml INHALATION RT-Q4H 03/31/24 [History] Magnesium Glycinate 200mg 600 mg PO DAILY 03/31/24 [History] Mesalamine [Asacol Hd] 800 mg PO TID 03/31/24 [History] Metoprolol Succinate (ER) [Toprol XL] 25 mg PO DAILY 03/31/24 [History] Follow up Appointment(s)/Referral(s): Dari Champagne MD [STAFF PHYSICIAN] - 1 Week (office will call you with date/time for a follow-up appointment.) [facility] [Primary Care Provider] - 1-2 days Ambulatory/Diagnostic Orders: Basic Metabolic Panel [LAB.AMB] Time Frame: 3 Days, Location: None Selected Magnesium [LAB.AMB] Time Frame: 3 Days, Location: None Selected Activity/Diet/Wound Care/Special Instructions: BMP and Magnesium (labs) in 2-3 days. Discharge Disposition: HOME SELF-CARE
--- NOTE | 2024-04-02 13:38 | P.PN ---
Subjective patient is seen for follow-up for chronic kidney disease. Currently receiving IV magnesium.. No significant complaints today. serum creatinine at 1.7 today. Maintained on IV fluids at 75 mL an hour. Plans for possible discharge today. Objective - Vital Signs Vital signs: Vital Signs Temp 97.4 F L 04/02/24 08:00 Pulse 60 04/02/24 08:00 Resp 17 04/02/24 08:00 BP 172/93 04/02/24 08:00 Pulse Ox 97 04/02/24 08:00 FiO2 Intake & Output 04/01/24 04/02/24 04/02/24 18:59 06:59 18:59 Intake Total 1620 Balance 1620 Intake: Oral 1620 Other: Voiding Method Toilet Toilet Toilet # Voids 4 2 - Exam patient is awake, comfortable, no acute distress. Examination of the heart S1 and S2 Examination of the lungs bilateral breath sounds are heard. Abdomen is soft nontender Examination of lower extremity shows no evidence of edema - Labs CBC & Chem 7: 03/31/24 09:22 04/02/24 05:42 Labs: Abnormal Lab Results - Last 24 Hours (Table) 04/01/24 04/01/24 04/02/24 Range/Units 14:48 15:14 05:42 Chloride 110 H (96-109) mmol/L Carbon Dioxide 18.3 L (21.6-31.8) mmol/L Creatinine 1.7 H (0.6-1.5) mg/dL Est GFR (CKD-EPI) 41 L (>=60) BUN/Creatinine Ratio 9.41 L (12.00-20.00) Ratio Calcium 6.9 L (8.7-10.3) mg/dL Ionized Calcium Ryan 4.3 L (4.5-5.3) mg/dL Urine Protein Trace H (Negative) Urine Blood Moderate H (Negative) Urine RBC 26 H (0-5) /hpf Assessment and Plan Assessment: 1. Chronic kidney disease stage IIIb with baseline creatinine 1.8-2 secondary to IgA nephropathy. GFR at baseline. 2. 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 3. Metabolic acidosis secondary to chronic kidney disease and GI losses. Improved. 4. Hypocalcemia secondary to hypomagnesemia induced PTH suppression. 5. Crohn's disease. 6. Chronic respiratory failure maintained on home O2. Plan: check PTH Okay to discharge after magnesium supplementation. Follow-up as outpatient in 1-2 weeks. Resume outpatient magnesium supplementation and continue to avoid proton pump inhibitors.
[2024-04-02 13:42] VITALS: BP 161/78; PULSE 76; RESP 20; TEMP 97.8
== END 2024-04-02 19:02 | disposition home or self-care (01) | DRG 641 ==
LOC: EC 08:58 → 5NMEDONC 11:19
PROVIDERS: ADMIT Family Medicine; ATTEND Family Medicine
DX: E83.42 Hypomagnesemia (principal); K50.90 Crohn's disease, unspecified, without complications; E87.20 Acidosis, unspecified; K90.9 Intestinal malabsorption, unspecified; J96.10 Chronic respiratory failure, unspecified whether with hypoxia or hypercapnia; M62.830 Muscle spasm of back; N18.32 Chronic kidney disease, stage 3b; M19.90 Unspecified osteoarthritis, unspecified site; K21.9 Gastro-esophageal reflux disease without esophagitis; E83.51 Hypocalcemia; E86.0 Dehydration; R79.1 Abnormal coagulation profile; F41.9 Anxiety disorder, unspecified; I12.9 Hypertensive chronic kidney disease with stage 1 through stage 4 chronic kidney disease, or unspecified chronic kidney disease; Z99.81 Dependence on supplemental oxygen; Z87.891 Personal history of nicotine dependence; Z79.84 Long term (current) use of oral hypoglycemic drugs; Z66 Do not resuscitate; Z79.899 Other long term (current) drug therapy; Z86.16 Personal history of COVID-19; Z90.49 Acquired absence of other specified parts of digestive tract
CPT/HCPCS: 36415; 71046; 78582; 80048; 80053; 81001; 82330; 83735; 83970; 84484; 85025; 85379; 85610; 85730; 87636; 93005; 94640; 94760; 96361; 96365; 96375; 99285

== ENCOUNTER → 2024-04-08 | Outpatient (CLI) | payer OTHER ==
[2024-04-08 16:43] LABS: HCT 36.8 % (39.6-50.0); HGB 11.3 g/dL (13.0-17.0); MCH 28.5 pg (27.0-32.0); MCHC 30.7 g/dL (32.0-37.0); MCV 92.7 FL (80.0-97.0); Mean Platelet Volume 10.3 FL (9.5-12.2); NRBC Per 100 WBC 0 X 10*3/uL (0.00-0.01); Platelet Count 309 X 10*3/uL (140-440); RBC 3.97 X 10*6/uL (4.40-5.60); RDW 14.1 % (11.5-14.5); WBC 9.67 X 10*3/uL (4.50-10.00)
[2024-04-08 17:12] LABS: BUN/Creat Ratio 9.79 Ratio (12.00-20.00); Blood Urea Nitrogen 18.6 mg/dL (9.0-27.0); Calcium 8.7 mg/dL (8.7-10.3); Carbon Dioxide 20.2 mmol/L (21.6-31.8); Chloride 108 mmol/L (96-109); Glucose 162 mg/dL (70-110); Phosphorus 2.3 mg/dL (2.4-5.1); Potassium 4.1 mmol/L (3.5-5.5); Sodium 140 mmol/L (135-145)
[2024-04-08 17:48] LABS: Magnesium 0.8 mg/dL (1.5-2.4)
== END | disposition home or self-care (01) ==
LOC: LABWHC1 09:19
PROVIDERS: ATTEND Nurse Practitioner Acute Care
DX: N18.32 Chronic kidney disease, stage 3b
CPT/HCPCS: 36415; 80048; 82043; 82570; 83735; 84100; 85027

== ENCOUNTER 2024-05-03 08:11 | Inpatient (IN) | payer OTHER, MEDICARE ==
--- NOTE | 2024-05-03 08:53 | ED ---
General Adult HPI - General Chief complaint: Weakness Stated complaint: L Arm Numbness Time Seen by Provider: 05/03/24 08:15 Source: patient, RN notes reviewed, old records reviewed Mode of arrival: wheelchair Limitations: no limitations - History of Present Illness Initial comments: This is a 74-year-old male who presents to the emergency department with a past medical history significant for Crohn's disease as well as hypomagnesemia. Patient states he does receive magnesium on a regular basis but there has been a 5-day stent where he has not received any magnesium. Patient states 2 days ago he had some numbness on his lips and some weakness in the left arm but those symptoms have since subsided but he does still overall feel little weak and he thinks his magnesium might be low. Patient denies chest pain palpitation difficulty breathing shortness of breath. Patient denies any fever chills or cough. Patient has any vomiting or diarrhea. Patient denies any abdominal pain patient denies any back pain - Related Data Home Medications Medication Instructions Recorded Confirmed Cholecalciferol [Vitamin D3 (25 50 mcg PO BID 05/06/21 05/03/24 Mcg = 1000 Iu)] Cyanocobalamin (Vitamin B-12) 1,000 mcg PO DAILY 05/06/21 05/03/24 [Vitamin B-12] Cholestyramine/Aspartame 4 gm PO TID-W/MEALS 10/15/22 05/03/24 [Cholestyramine Light Packet] Calcium Carbonate 500 mg PO QID 10/13/23 05/03/24 Empagliflozin [Jardiance] 10 mg PO DAILY 02/17/24 05/03/24 Sodium Zirconium Cyclosilicate 5 gm PO DAILY 02/17/24 05/03/24 [Lokelma] Albuterol Inhaler [Ventolin Hfa 2 puff INHALATION RT-Q4H PRN 03/31/24 05/03/24 Inhaler] Atorvastatin [Lipitor] 40 mg PO HS 03/31/24 05/03/24 Escitalopram [Lexapro] 20 mg PO DAILY 03/31/24 05/03/24 Fluticasone Propion/Salmeterol 1 puff INHALATION RT-BID 03/31/24 05/03/24 [Wixela 100-50 Inhub] Ipratropium-Albuterol Nebulize 3 ml INHALATION RT-Q4H 03/31/24 05/03/24 [Duoneb 0.5 mg-3 mg/3 ml Soln] Magnesium Glycinate 200mg 600 mg PO DAILY 03/31/24 05/03/24 Mesalamine [Asacol Hd] 800 mg PO TID 03/31/24 05/03/24 Metoprolol Succinate (ER) [Toprol 25 mg PO DAILY 03/31/24 05/03/24 XL] Pantoprazole Sodium [Protonix] 20 mg PO BID 05/03/24 05/03/24 Allergies Allergy/AdvReac Type Severity Reaction Status Date / Time etodolac AdvReac Abdominal Verified 05/03/24 08:18 Pain hydrochlorothiazide AdvReac dizziness Verified 05/03/24 08:18 [From Prinzide] & cramps lisinopril [From Prinzide] AdvReac dizziness Verified 05/03/24 08:18 & cramps vardenafil [From Levitra] AdvReac Disoriented Verified 05/03/24 08:18 Review of Systems ROS Statement: Those systems with pertinent positive or pertinent negative responses have been documented in the HPI. ROS Other: All systems not noted in ROS Statement are negative. Past Medical History Past Medical History: GERD/Reflux, Hypertension, Osteoarthritis (OA), Renal Disease Additional Past Medical History / Comment(s): BOWEL RESECTION X2 DUE TO INFECTION., CROHNS, IBS, HERNIATED DISC., COVID JUL 2021., HOSPTALIZED AUG 2021 WITH RASH & TOE WOUND WHICH IS HEALED.,KIDNEY DISEASE-STATES 50-60%., SOB., STATES RECENT DIZZINESS., SEE CARDIOLOGY H & P. History of Any Multi-Drug Resistant Organisms: None Reported Past Surgical History: Appendectomy, Bowel Resection Additional Past Surgical History / Comment(s): "35 YEARS AGO- BOWEL RESECTION AND ILEOCECAL VALVE REMOVED WITH 1 FOOT OF INTESTINE., HAD 2ND BOWEL RESECTION 3 YEARS AGO. Past Anesthesia/Blood Transfusion Reactions: No Reported Reaction Past Psychological History: Anxiety Smoking Status: Former smoker - Past Family History Mother Family Medical History: Coronary Artery Disease (CAD), Diabetes Mellitus Additional Family Medical History / Comment(s): NIDDM Father Family Medical History: Coronary Artery Disease (CAD), Diabetes Mellitus, Hypertension General Exam - General Exam Comments Initial Comments: GENERAL: Patient is well-developed and well-nourished. Patient is nontoxic and well-hydrated and is in no acute distress. ENT: Neck is soft and supple. No significant lymphadenopathy is noted. Oropharynx is clear. Moist mucous membranes. Neck has full range of motion without eliciting any pain. EYES: The sclera were anicteric and conjunctiva were pink and moist. Extraocular movements were intact and pupils were equal round and reactive to light. Eyelids were unremarkable. PULMONARY: Unlabored respirations. Good breath sounds bilaterally. No audible rales rhonchi or wheezing was noted. CARDIOVASCULAR: There is a regular rate and rhythm without any murmurs gallops or rubs. ABDOMEN: Soft and nontender with normal bowel sounds. SKIN: Skin is clear with no lesions or rashes and otherwise unremarkable. NEUROLOGIC: Patient is alert and oriented x3. Cranial nerves II through XII are grossly intact. Motor and sensory are also intact. Normal speech, volume and content. Symmetrical smile. NIH is 0 MUSCULOSKELETAL: Normal extremities with adequate strength and full range of motion. No lower extremity swelling or edema. No calf tenderness. LYMPHATICS: No significant lymphadenopathy is noted PSYCHIATRIC: Normal psychiatric evaluation. Limitations: no limitations Course Vital Signs 05/03/24 08:15 Temperature 97.5 F L Pulse Rate 67 Respiratory 18 Rate Blood Pressure 134/70 O2 Sat by Pulse 99 Oximetry Medical Decision Making - Medical Decision Making EKG is interpreted by myself. EKG is a sinus rhythm at 62 bpm NM interval is 195 QRS is 106 QT interval 398 QTc is 404. Patient's EKG shows no ST segment o vation or depression. Was pt. sent in by a medical professional or institution (, PA, DIABETES NURSE, urgent care, hospital, or penitentiary...) When possible be specific @ -No Did you speak to anyone other than the patient for history (EMS, parent, family, police, friend...)? What history was obtained from this source @ -No Did you review nursing and triage notes (agree or disagree)? Why? @ -I reviewed and agree with nursing and triage notes Were old charts reviewed (outside hosp., previous admission, EMS record, old EKG, old radiological studies, urgent care reports/EKG's, penitentiary records)? Report findings @ -No old charts were reviewed Differential Diagnosis? @ -Differential CVA Ischemic stroke, hemorrhagic stroke, brain tumor, atypical migraine, Wernicke's encephalopathy, seizure, multiple sclerosis, meningitis, encephalitis, hypoglycemia, Guillain-Ponce, electrolytes disturbance, myasthenia gravis.... This is not meant to be an all-inclusive list EKG interpreted by me (3pts min.). @ -As above X-rays interpreted by me (1pt min.). @ -Chest x-ray shows no acute abnormality CT interpreted by me (1pt min.). @ -CT of the brain shows no acute abnormality U/S interpreted by me (1pt. min.). @ -None done What testing was considered but not performed or refused? (CT, X-rays, U/S, labs )? Why? @ -None What meds were considered but not given or refused? Why? @ -None Did you discuss the management of the patient with other professionals (professionals i.e. , PA, DIABETES NURSE, lab, RT, psych nurse, social worker assistant, supervisor assembling, teacher, project control officer, watch caser)? Give summary @ -I spoke with sound physicians they agreed to admit the patient Was smoking cessation discussed for >3mins.? @ -No Was critical care preformed (if so, how long)? @ -No Were there social determinants of health that impacted care today? How? (Homelessness, low income, unemployed, alcoholism, drug addiction, transpor tation, low edu. Level, literacy, decrease access to med. care, halfway, rehab)? @ -No Was there de-escalation of care discussed even if they declined (Discuss DNR or withdrawal of care, Hospice)? DNR status @ -No What co-morbidities impacted this encounter? (DM, HTN, Smoking, COPD, CAD, Cancer, CVA, ARF, Chemo, Hep., AIDS, mental health diagnosis, sleep apnea, morbid obesity)? @ -None Was patient admitted / discharged? Hospital course, mention meds given and route, prescriptions, significant lab abnormalities, going to OR and other pertinent info. @ -Patient was given 2 g of magnesium sulfate. Patient CT of the brain showed no acute normality. Undiagnosed new problem with uncertain prognosis? @ -No Drug Therapy requiring intensive monitoring for toxicity (Heparin, Nitro, Insulin, Cardizem)? @ -No Were any procedures done? @ -No Diagnosis/symptom? @ -Hypomagnesemia Acute, or Chronic, or Acute on Chronic? @ -Acute Uncomplicated (without systemic symptoms) or Complicated (systemic symptoms)? @ -Complicated Side effects of treatment? @ -No Exacerbation, Progression, or Severe Exacerbation? @ -No Poses a threat to life or bodily function? How? (Chest pain, [place], [place], pneumonia, PE, COPD, DKA, ARF, appy, cholecystitis, CVA, Diverticulitis, Homicidal, Suicidal, threat to staff... and all critical care pts) @ -Yes this can lead to dysrhythmias. Diagnosis/symptom? @ -TIA Acute, or Chronic, or Acute on Chronic? @ -Acute Uncomplicated (without systemic symptoms) or Complicated (systemic symptoms)? @ -Complicated Side effects of treatment? @ -None Exacerbation, Progression, or Severe Exacerbation] @ -No Poses a threat to life or bodily function? @ -Yes this can lead to a significant CVA - Lab Data Result diagrams: 05/03/24 08:53 05/03/24 08:53 Lab Results 05/03/24 05/03/24 05/03/24 Range/Units 08:53 08:53 08:53 WBC 5.7 (3.8-10.6) k/uL RBC 3.87 L (4.30-5.90) m/uL Hgb 11.0 L (13.0-17.5) gm/dL Hct 35.7 L (39.0-53.0) % MCV 92.3 (80.0-100.0) fL MCH 28.5 (25.0-35.0) pg MCHC 30.9 L (31.0-37.0) g/dL RDW 14.2 (11.5-15.5) % Plt Count 249 (150-450) k/uL MPV 7.2 Neutrophils % 60 % Lymphocytes % 26 % Monocytes % 7 % Eosinophils % 4 % Basophils % 1 % Neutrophils # 3.4 (1.3-7.7) k/uL Lymphocytes # 1.5 (1.0-4.8) k/uL Monocytes # 0.4 (0-1.0) k/uL Eosinophils # 0.2 (0-0.7) k/uL Basophils # 0.0 (0-0.2) k/uL Hypochromasia Marked PT 11.5 (10.0-12.5) sec INR 1.1 (<1.2) APTT 24.7 (22.0-30.0) sec Sodium 138 (137-145) mmol/L Potassium 4.9 (3.5-5.1) mmol/L Chloride 118 H (98-107) mmol/L Carbon Dioxide 10 L (22-30) mmol/L Anion Gap 10 mmol/L BUN 26 H (9-20) mg/dL Creatinine 2.30 H (0.66-1.25) mg/dL Est GFR (CKD-EPI)AfAm 31 (>60 ml/min/1.73 sqM) Est GFR (CKD-EPI)NonAf 27 (>60 ml/min/1.73 sqM) Glucose 96 (74-99) mg/dL Calcium 8.9 (8.4-10.2) mg/dL Magnesium 1.1 L (1.6-2.3) mg/dL Total Bilirubin 0.3 (0.2-1.3) mg/dL AST 23 (17-59) U/L ALT 19 (4-49) U/L Alkaline Phosphatase 43 (38-126) U/L Troponin I (0.000-0.034) ng/mL Total Protein 5.8 L (6.3-8.2) g/dL Albumin 3.4 L (3.5-5.0) g/dL 05/03/24 Range/Units 08:53 WBC (3.8-10.6) k/uL RBC (4.30-5.90) m/uL Hgb (13.0-17.5) gm/dL Hct (39.0-53.0) % MCV (80.0-100.0) fL MCH (25.0-35.0) pg MCHC (31.0-37.0) g/dL RDW (11.5-15.5) % Plt Count (150-450) k/uL MPV Neutrophils % % Lymphocytes % % Monocytes % % Eosinophils % % Basophils % % Neutrophils # (1.3-7.7) k/uL Lymphocytes # (1.0-4.8) k/uL Monocytes # (0-1.0) k/uL Eosinophils # (0-0.7) k/uL Basophils # (0-0.2) k/uL Hypochromasia PT (10.0-12.5) sec INR (<1.2) APTT (22.0-30.0) sec Sodium (137-145) mmol/L Potassium (3.5-5.1) mmol/L Chloride (98-107) mmol/L Carbon Dioxide (22-30) mmol/L Anion Gap mmol/L BUN (9-20) mg/dL Creatinine (0.66-1.25) mg/dL Est GFR (CKD-EPI)AfAm (>60 ml/min/1.73 sqM) Est GFR (CKD-EPI)NonAf (>60 ml/min/1.73 sqM) Glucose (74-99) mg/dL Calcium (8.4-10.2) mg/dL Magnesium (1.6-2.3) mg/dL Total Bilirubin (0.2-1.3) mg/dL AST (17-59) U/L ALT (4-49) U/L Alkaline Phosphatase (38-126) U/L Troponin I <0.012 (0.000-0.034) ng/mL Total Protein (6.3-8.2) g/dL Albumin (3.5-5.0) g/dL Disposition Clinical Impression: Hypomagnesemia, TIA (transient ischemic attack) Disposition: ADMITTED IP TO THIS HOSP Referrals: [facility],Clinic [Primary Care Provider] - 1-2 days Time of Disposition: 12:05
[2024-05-03 09:02] LABS: Basophils % (A) 1 %; Eosinophils # (A) 0.2 k/uL (0-0.7); Eosinophils % (A) 4 %; HCT 35.7 % (39.0-53.0); Hypochromasia Marked; Lymphocytes # (A) 1.5 k/uL (1.0-4.8); Lymphocytes % (A) 26 %; MCH 28.5 pg (25.0-35.0); MCHC 30.9 g/dL (31.0-37.0); MCV 92.3 fL (80.0-100.0); Mean Platelet Volume 7.2; Monocytes # (A) 0.4 k/uL (0-1.0); Monocytes % (A) 7 %; Neutrophils # (A) 3.4 k/uL (1.3-7.7); Neutrophils % (A) 60 %; Platelet Count 249 k/uL (150-450); RBC 3.87 m/uL (4.30-5.90); RDW 14.2 % (11.5-15.5); WBC 5.7 k/uL (3.8-10.6)
[2024-05-03 09:13] LABS: INR 1.1 (<1.2); Partial Thromboplastin Time 24.7 sec (22.0-30.0); Prothrombin Time 11.5 sec (10.0-12.5)
[2024-05-03 09:15] LABS: ALT 19 U/L (4-49); AST 23 U/L (17-59); African American GFR (CKD) 31 (>60 ml/min/1.73 sqM); Albumin 3.4 g/dL (3.5-5.0); Alkaline Phosphatase 43 U/L (38-126); Anion Gap 10 mmol/L; Blood Urea Nitrogen 26 mg/dL (9-20); Calcium 8.9 mg/dL (8.4-10.2); Carbon Dioxide 10 mmol/L (22-30); Chloride 118 mmol/L (98-107); Glucose 96 mg/dL (74-99); Magnesium 1.1 mg/dL (1.6-2.3); Non-African American GFR(CKD) 27 (>60 ml/min/1.73 sqM); Potassium 4.9 mmol/L (3.5-5.1); Sodium 138 mmol/L (137-145); Total Bilirubin 0.3 mg/dL (0.2-1.3); Total Protein 5.8 g/dL (6.3-8.2)
--- NOTE | 2024-05-03 10:12 | CT ---
EXAMINATION TYPE: CT brain wo con CT DLP: 1168.4 mGycm, Automated exposure control for dose reduction was used. DATE OF EXAM: 05/03/2024 10:08 AM COMPARISON: None. CLINICAL INDICATION:Male, 74 years old with history of Weakness, weakness and left arm numbness. TECHNIQUE: Brain: Multiple axial CT images of the brain were obtained without IV contrast. . Coronal and sagitta l reformats reviewed. FINDINGS: Brain: Extra-axial spaces: No abnormal extra-axial fluid collections. Ventricular system: Within normal limits Cerebral parenchyma: No acute intraparenchymal hemorrhage or mass effect. The perez-white junction is well differentiated. Scattered hypoattenuating areas are seen within the periventricular white matte r. Cerebellum: Unremarkable. Mass effect: No evidence of midline shift. Intracranial vasculature: Atherosclerotic calcifications of the intracranial vessels. Soft tissues: Normal. Calvarium/osseous structures: No depressed skull fracture. Paranasal sinuses and mastoid air cells: Minimal mucosal thickening of the inferior right frontal sin us and left maxillary sinus. Mastoid air cells are clear. Visualized orbits: Orbital contents are intact. IMPRESSION: 1. No acute intracranial process. 2. Nonspecific white matter changes, likely secondary to chronic small vessel ischemic disease. [facility], , 05/03/2024 10:10 AM
[2024-05-03] MEDS: MAGNESIUM SULFATE-D5W PMX 1 GM in DEXTROSE/WATER 1 100ML.BAG IVPB SCH ×2 (10:39→14:25)
--- NOTE | 2024-05-03 11:10 | XR ---
EXAMINATION TYPE: XR chest 2V DATE OF EXAM: 05/03/2024 11:07 AM CLINICAL INDICATION: Male, 74 years old with history of Chest Pain; COMPARISON: Chest radiographs from 03/31/2024 TECHNIQUE: XR chest 2V Frontal view of the chest. FINDINGS: Lungs/Pleura: There is no evidence of pleural effusion, focal consolidation, or pneumothorax. Pulmonary vascularity: Unremarkable. Heart/mediastinum: Cardiomediastinal silhouette is unremarkable. Musculoskeletal: No acute osseous pathology. IMPRESSION: No acute cardiopulmonary disease/process. [facility], , 05/03/2024 11:08 AM
[2024-05-03] MEDS ORDERED: NITROGLYCERIN SL TABS 0.4 MG TAB SUBLINGUAL PRN (11:39)
[2024-05-03] MEDS ORDERED: NITROGLYCERIN OINT 1 INCH/GM PACKET TOPICAL SCH (12:00)
[2024-05-03] MEDS ORDERED: ALBUTEROL NEBULIZED 2.5 MG/3 ML INHALATION PRN (12:10)
[2024-05-03] MEDS: CHOLESTYRAMINE (WITH SUGAR) 4 GM PACKET PO SCH (13:07)
--- NOTE | 2024-05-03 14:22 | P.HPIM ---
History of Present Illness H&P Date: 05/03/24 Chief Complaint: Left upper extremity numbness Patient is a 74-year-old male with a past medical history of Crohn's disease status post bowel resection, COPD on 2 L nasal cannula at home, CKD stage III, hypertension and hypomagnesemia who presents to the ED with left upper extremity numbness intermittently for 3 days. Patient also had 1 brief episode of numbness around his lip. Patient gets magnesium transfusions by his scheduler twice a week. Patient states that last transfusion was 4 days ago. Patient states that when his magnesium is low he usually feels generalized weakness but has never had numbness. Patient states that the numbness and weakness gets worse with exertion and gets better with rest. Patient does have a history of smoking and he quit 6 years ago. 10 ROS reviewed and are negative except as noted in HPI Physical exam General: [Alert and oriented, well nourished, no acute distress]. Eye: [PERRL, EOMI, normal conjunctiva]. HENT: [Normocephalic, clear tympanic membranes, normal hearing, moist oral mucosa, no scleral icterus, no sinus tenderness]. Neck: [Supple, non-tender, no carotid bruits, no JVD, no lymphadenopathy]. Lungs: [Clear to auscultation and percussion, non-labored respiration]. Heart: [Normal rate, regular rhythm, no murmur, gallop or edema]. Abdomen: [Soft, non-tender, non-distended, normal bowel sounds, no masses]. Musculoskeletal: [Normal range of motion and strength, no tenderness or sw elling]. Skin: [Skin is warm, dry and pink, no rashes or lesions]. Neurologic: [Awake, alert, and oriented X3, CN II-XII intact]. Psychiatric: [Cooperative, appropriate mood and affect]. Assessment and plan Left upper extremity weakness and numbness Suspect this is due to hypomagnesemia However her symptoms are different from when he usually has hypomagnesemia so I will do workup for stroke Echo with bubble study Check carotid ultrasound bilaterally Check LDL Check MRI brain without contrast Hypomagnesemia Will give the patient a total of 6 g of magnesium sulfate Patient already established with nephrology and gets infusions twice a week Resume his magnesium supplement 400 mg daily History of Crohn's disease Status post resection Stable Continue with balsalazide and cholestyramine COPD on 2 L home O2 Stable Continue with CKD stage III Creatinine baseline is around 2.0 Patient's creatinine on admission is 2.3 Hypertension Resume home meds DVT prophylaxis: Subcu heparin Past Medical History Past Medical History: GERD/Reflux, Hypertension, Osteoarthritis (OA), Renal Disease Additional Past Medical History / Comment(s): BOWEL RESECTION X2 DUE TO INFECTION., CROHNS, IBS, HERNIATED DISC., COVID JUL 2021., HOSPTALIZED AUG 2021 WITH RASH & TOE WOUND WHICH IS HEALED.,KIDNEY DISEASE-STATES 50-60%., SOB., STATES RECENT DIZZINESS., SEE CARDIOLOGY H & P. History of Any Multi-Drug Resistant Organisms: None Reported Past Surgical History: Appendectomy, Bowel Resection Additional Past Surgical History / Comment(s): "35 YEARS AGO- BOWEL RESECTION AND ILEOCECAL VALVE REMOVED WITH 1 FOOT OF INTESTINE., HAD 2ND BOWEL RESECTION 3 YEARS AGO. Past Anesthesia/Blood Transfusion Reactions: No Reported Reaction Past Psychological History: Anxiety Smoking Status: Former smoker - Past Family History Mother Family Medical History: Coronary Artery Disease (CAD), Diabetes Mellitus Additional Family Medical History / Comment(s): NIDDM Father Family Medical History: Coronary Artery Disease (CAD), Diabetes Mellitus, Hypertension Medications and Allergies Home Medications Medication Instructions Recorded Confirmed Type Cholecalciferol [Vitamin D3 (25 50 mcg PO BID 05/06/21 05/03/24 History Mcg = 1000 Iu)] Cyanocobalamin (Vitamin B-12) 1,000 mcg PO DAILY 05/06/21 05/03/24 History [Vitamin B-12] Cholestyramine/Aspartame 4 gm PO TID-W/MEALS 10/15/22 05/03/24 History [Cholestyramine Light Packet] Calcium Carbonate 500 mg PO QID 10/13/23 05/03/24 History Empagliflozin [Jardiance] 10 mg PO DAILY 02/17/24 05/03/24 History Sodium Zirconium Cyclosilicate 5 gm PO DAILY 02/17/24 05/03/24 History [Lokelma] Albuterol Inhaler [Ventolin Hfa 2 puff INHALATION RT-Q4H PRN 03/31/24 05/03/24 History Inhaler] Atorvastatin [Lipitor] 40 mg PO HS 03/31/24 05/03/24 History Escitalopram [Lexapro] 20 mg PO DAILY 03/31/24 05/03/24 History Fluticasone Propion/Salmeterol 1 puff INHALATION RT-BID 03/31/24 05/03/24 History [Wixela 100-50 Inhub] Ipratropium-Albuterol Nebulize 3 ml INHALATION RT-Q4H 03/31/24 05/03/24 History [Duoneb 0.5 mg-3 mg/3 ml Soln] Magnesium Glycinate 200mg 600 mg PO DAILY 03/31/24 05/03/24 History Mesalamine [Asacol Hd] 800 mg PO TID 03/31/24 05/03/24 History Metoprolol Succinate (ER) [Toprol 25 mg PO DAILY 03/31/24 05/03/24 History XL] Pantoprazole Sodium [Protonix] 20 mg PO BID 05/03/24 05/03/24 History Allergies Allergy/AdvReac Type Severity Reaction Status Date / Time etodolac AdvReac Abdominal Verified 05/03/24 08:18 Pain hydrochlorothiazide AdvReac dizziness Verified 05/03/24 08:18 [From Prinzide] & cramps lisinopril [From Prinzide] AdvReac dizziness Verified 05/03/24 08:18 & cramps vardenafil [From Levitra] AdvReac Disoriented Verified 05/03/24 08:18 Physical Exam Osteopathic Statement: *. No significant issues noted on an osteopathic structural exam other than those noted in the History and Physical/Consult. Vitals: Vital Signs Temp Pulse Resp BP Pulse Ox 05/03/24 12:16 69 18 126/68 98 05/03/24 08:15 97.5 F L 67 18 134/70 99 Intake and Output 05/02/24 05/03/24 05/03/24 22:59 06:59 14:59 Other: Weight 101.605 kg Results CBC & Chem 7: 05/03/24 08:53 05/03/24 08:53 Labs: Abnormal Lab Results - Last 24 Hours (Table) 05/03/24 05/03/24 Range/Units 08:53 08:53 RBC 3.87 L (4.30-5.90) m/uL Hgb 11.0 L (13.0-17.5) gm/dL Hct 35.7 L (39.0-53.0) % MCHC 30.9 L (31.0-37.0) g/dL Chloride 118 H (98-107) mmol/L Carbon Dioxide 10 L (22-30) mmol/L BUN 26 H (9-20) mg/dL Creatinine 2.30 H (0.66-1.25) mg/dL Magnesium 1.1 L (1.6-2.3) mg/dL Total Protein 5.8 L (6.3-8.2) g/dL Albumin 3.4 L (3.5-5.0) g/dL
--- NOTE | 2024-05-03 15:22 | US ---
EXAMINATION TYPE: US carotid duplex BILAT DATE OF EXAM: 05/03/2024 COMPARISON: NONE CLINICAL INDICATION: Male, 74 years old with history of stroke with renal failure; Stroke with sammie l failure per order TECHNIQUE: Grayscale, color Doppler and spectral Doppler evaluation of the bilateral carotid systems and vertebral arteries.Indirect Doppler criteria was utilized. FINDINGS: EXAM MEASUREMENTS: RIGHT: Peak Systolic Velocity (PSV) cm/sec ----- Right CCA: 69.1 ----- Right ICA: 197.6 ----- Right ECA: 65.8 ICA/CCA ratio: 2.9 RIGHT: End Diastole cm/sec ----- Right CCA: 9.8 ----- Right ICA: 66.6 ----- Right ECA: 9.8 LEFT: Peak Systolic Velocity (PSV) cm/sec ----- Left CCA: 86.6 ----- Left ICA: 110.8 ----- Left ECA: 101.6 ICA/CCA ratio: 1.3 LEFT: End Diastole cm/sec ----- Left CCA: 23.2 ----- Left ICA: 34.9 ----- Left ECA: 17.6 VERTEBRALS (direction of flow): Right Vertebral: Antegrade Left Vertebral: Antegrade Rhythm: Normal HAND MOLDER AND CASTER NOTES: Narrowing/stenosis seen proximal right ICA. Elevated velocities within right ICA . Plaque seen within right bulb and proximal ICA. ICA/CCA ratio was 2.9 on the right. Minimal plaque seen within left bulb. IMPRESSION: 1. 50-69% stenosis of the right carotid bifurcation by peak systolic velocity and ratio 2. Less than 50% stenosis of the left carotid bifurcation. Criteria for Assigning % of Stenosis / Diameter reduction (Estimation based on the indirect measurements of the internal carotid artery velocities (ICA PSV). 1. Normal (no stenosis)=ICA PSV < 125 cm/s: ratio < 2.0: ICA EDV<40 cm/s. 2. Less than 50% stenosis=ICA PSV < 125 cm/s: ratio < 2.0: ICA EDV<40 cm/s. 3. 50 to 69% stenosis=ICA PSV of 125 to 230 cm/s: ration 2.0 ? 4.0: ICA EDV 40-100 cm/s. 4. Greater than 70% stenosis to near occlusion= ICA PSV > 230 cm/s: ratio > 4.0: ICA EDV > 100 cm/s. 5. Near occlusion= ICA PSV velocities may be low or undetectable: variable ratio and ICA EDV. 6. Total occlusion=unable to detect flow. [facility], , 05/03/2024 3:20 PM
[2024-05-03] MEDS: IPRATROPIUM-ALBUTEROL 3 ML NEB INHALATION SCH ×2 (16:04→20:07)
[2024-05-03] MEDS: BALSALAZIDE DISODIUM 750 MG CAPSULE PO SCH (17:10)
[2024-05-03] MEDS: SYMBICORT 80-4.5 MCG INHALER INHALATION SCH (20:09)
[2024-05-03] MEDS: HEPARIN SODIUM,PORCINE 5,000 UNIT/ML 1 ML VIAL SQ SCH (21:04)
[2024-05-03] MEDS: ATORVASTATIN 40 MG TAB PO SCH (21:04)
[2024-05-04 07:26] LABS: African American GFR (CKD) 32 (>60 ml/min/1.73 sqM); Anion Gap 8 mmol/L; Blood Urea Nitrogen 24 mg/dL (9-20); Calcium 8.9 mg/dL (8.4-10.2); Carbon Dioxide 13 mmol/L (22-30); Chloride 117 mmol/L (98-107); Glucose 97 mg/dL (74-99); Magnesium 2.2 mg/dL (1.6-2.3); Non-African American GFR(CKD) 27 (>60 ml/min/1.73 sqM); Potassium 5.3 mmol/L (3.5-5.1); Sodium 138 mmol/L (137-145)
[2024-05-04] MEDS ORDERED: ASPIRIN 325 MG TAB PO SCH (09:00)
[2024-05-04] MEDS: ESCITALOPRAM 20 MG TAB PO SCH (09:20)
[2024-05-04] MEDS: METOPROLOL SUCCINATE (ER) 25 MG TAB.ER.24H PO SCH (09:20)
[2024-05-04] MEDS: MAGNESIUM OXIDE 400 MG TAB PO SCH ×2 (09:20→20:58)
[2024-05-04] MEDS: DAPAGLIFLOZIN PROPANEDIOL 5 MG TABLET PO SCH (09:20)
--- NOTE | 2024-05-04 11:11 | CA ---
Transthoracic Echo Report Name: Joseph Sibley Age: 74 Gender: M : 1950 Exam Date: 05/04/2024 08:26 Exam Location: [facility] [place] Ht (in): 75 Wt (lb): 224 Ordering Physician: Rachel Otero MD Attending/Referring Phys: Vegetable Sorter Nallely Jackson RDCS Procedure CPT: Indications: stroke, CVA Cardiac Hx: Technical Quality: Fair Contrast 1: Agitated Saline Total Dose (mL): Contrast 2: Total Dose (mL): MEASUREMENTS (Male / Female) Normal Values 2D ECHO LV Diastolic Diameter PLAX 5.4 cm 4.2 - 5.9 / 3.9 - 5.3 cm IVS Diastolic Thickness 1.1 cm 0.6 - 1.0 / 0.6 - 0.9 cm LVPW Diastolic Thickness 1.1 cm 0.6 - 1.0 / 0.6 - 0.9 cm LV Relative Wall Thickness 0.4 RV Internal Dim ED PLAX 1.8 cm LV Diastolic Volume MOD BP 96.2 cm??? 67 - 155 / 56 - 104 cm??? LV Systolic Volume MOD BP 36.6 cm??? 22 - 58 / 19 - 49 cm??? LV Ejection Fraction MOD BP 62.0 % >= 55 % LV Cardiac Index MOD BP 1685.0 cm???/min???m??? LV Diastolic Volume MOD 4C 104.8 cm??? LV Systolic Volume MOD 4C 43.2 cm??? LV Ejection Fraction MOD 4C 58.8 % LV Cardiac Index MOD 4C 1741.7 cm???/min???m??? LV Diastolic Length 4C 8.4 cm LV Systolic Length 4C 6.5 cm LV Diastolic Volume MOD 2C 84.2 cm??? LV Systolic Volume MOD 2C 29.9 cm??? LV Ejection Fraction MOD 2C 64.6 % LV Cardiac Index MOD 2C 1538.0 cm???/min???m??? LV Diastolic Length 2C 7.9 cm LV Systolic Length 2C 6.8 cm M-MODE Aortic Root Diameter MM 3.7 cm LA Systolic Diameter MM 4.2 cm LA Ao Ratio MM 1.1 AV Cusp Separation MM 2.3 cm DOPPLER Mitral E Point Velocity 60.6 cm/s Mitral A Point Velocity 96.5 cm/s Mitral E to A Ratio 0.6 MV Deceleration Time 353.1 ms MV E' Velocity 8.2 cm/s Mitral E to MV E' Ratio 7.4 TR Peak Velocity 215.0 cm/s TR Peak Gradient 18.5 mmHg FINDINGS Left Ventricle Left ventricular ejection fraction is estimated at 55-60%. Normal Left ventricular size, wall thickness, systolic function. No obvious regional wall motion abnormalities. No significant diastolic dysfunction Right Ventricle Mild right ventricular dilatation. Right ventricular systolic pressure within normal limits. Right Atrium Normal right atrial size. Negative agitated saline bubble study for right to left shunt. Left Atrium Normal left atrial size. Mitral Valve Structurally normal mitral valve. Trace mitral regurgitation. No mitral stenosis. Aortic Valve Trileaflet aortic valve. Trace aortic regurgitation. No aortic stenosis. Tricuspid Valve Structurally normal tricuspid valve. Trace tricuspid regurgitation. No tricuspid stenosis. Pulmonic Valve Structurally normal pulmonic valve. [id number] pulmonic regurgitation. No pulmonic stenosis. Pericardium No pericardial or pleural effusion. Aorta Aorta at upper limits of normal. CONCLUSIONS Left ventricular ejection fraction is estimated at 55-60%. No obvious regional wall motion abnormalities. Mild RV dilatation with normal systolic function No [id number] intracardiac shunting on bubble study No significant valvular dysfunction Previewed by: Dr Andrew Romero (Electronically Signed) Final Date: 04 May 2024 11:10
[2024-05-04 11:13] LABS: Chol/HDL Ratio 2.31 Ratio
[2024-05-04] MEDS: DEXTROSE 5% IN WATER 1,000 ML with SODIUM BICARB (1 MEQ/ML) 150 ML IV SCH (11:28)
--- NOTE | 2024-05-04 12:49 | P.NPCON ---
History of Present Illness - Reason for Consult chronic renal failure - History of Present Illness Patient is a 74-year-old male with history of Crohn's disease and chronic kidney disease stage IIIb with baseline creatinine around 1.8 to 2 mg/dL Patient is admitted to the hospital with complaints of weakness of his left arm as well as some numbness of the arm and left side of the face. Patient also has chronic hypomagnesemia. Magnesium was 1.1 on admission and is 2.2 today. Serum calcium is 8.9 mg/dL. No significant diarrhea. No complaints of fever chills nausea or vomiting. Serum creatinine noted to be 2.3 mg/dL. CO2 was low at 10. Patient states he has been voiding. Blood pressure is not low and in fact it is on the high side. Review of Systems As per HPI Past Medical History Past Medical History: GERD/Reflux, Hypertension, Osteoarthritis (OA), Renal Disease Additional Past Medical History / Comment(s): BOWEL RESECTION X2 DUE TO INFECTION, CROHNS, IBS, HERNIATED DISC, COVID JUL 2021, HOSPTALIZED AUG 2021 WITH RASH & TOE WOUND - HEALED, KIDNEY DISEASE, SOB W/ HOME O2, LOW MAGNESIUM W/ WEEKLY INFUSIONS History of Any Multi-Drug Resistant Organisms: None Reported Past Surgical History: Appendectomy, Bowel Resection Additional Past Surgical History / Comment(s): "35 YEARS AGO- BOWEL RESECTION AND ILEOCECAL VALVE REMOVED WITH 1 FOOT OF INTESTINE, HAD 2ND BOWEL RESECTION 3 YEARS AGO Past Anesthesia/Blood Transfusion Reactions: No Reported Reaction Past Psychological History: Anxiety Smoking Status: Former smoker Past Alcohol Use History: None Reported Additional Past Alcohol Use History / Comment(s): QUIT SMOKING 2017, HX OF 1 PPD Past Drug Use History: None Reported - Past Family History Mother Family Medical History: Coronary Artery Disease (CAD), Diabetes Mellitus Additional Family Medical History / Comment(s): NIDDM Father Family Medical History: Coronary Artery Disease (CAD), Diabetes Mellitus, Hypertension Medications and Allergies Home Medications Medication Instructions Recorded Confirmed Type Cholecalciferol [Vitamin D3 (25 50 mcg PO BID 05/06/21 05/03/24 History Mcg = 1000 Iu)] Cyanocobalamin (Vitamin B-12) 1,000 mcg PO DAILY 05/06/21 05/03/24 History [Vitamin B-12] Cholestyramine/Aspartame 4 gm PO TID-W/MEALS 10/15/22 05/03/24 History [Cholestyramine Light Packet] Calcium Carbonate 500 mg PO QID 10/13/23 05/03/24 History Empagliflozin [Jardiance] 10 mg PO DAILY 02/17/24 05/03/24 History Sodium Zirconium Cyclosilicate 5 gm PO DAILY 02/17/24 05/03/24 History [Lokelma] Albuterol Inhaler [Ventolin Hfa 2 puff INHALATION RT-Q4H PRN 03/31/24 05/03/24 History Inhaler] Atorvastatin [Lipitor] 40 mg PO HS 03/31/24 05/03/24 History Escitalopram [Lexapro] 20 mg PO DAILY 03/31/24 05/03/24 History Fluticasone Propion/Salmeterol 1 puff INHALATION RT-BID 03/31/24 05/03/24 History [Wixela 100-50 Inhub] Ipratropium-Albuterol Nebulize 3 ml INHALATION RT-Q4H 03/31/24 05/03/24 History [Duoneb 0.5 mg-3 mg/3 ml Soln] Magnesium Glycinate 200mg 600 mg PO DAILY 03/31/24 05/03/24 History Mesalamine [Asacol Hd] 800 mg PO TID 03/31/24 05/03/24 History Metoprolol Succinate (ER) [Toprol 25 mg PO DAILY 03/31/24 05/03/24 History XL] Pantoprazole Sodium [Protonix] 20 mg PO BID 05/03/24 05/03/24 History Allergies Allergy/AdvReac Type Severity Reaction Status Date / Time etodolac AdvReac Abdominal Verified 05/03/24 08:18 Pain hydrochlorothiazide AdvReac dizziness Verified 05/03/24 08:18 [From Prinzide] & cramps lisinopril [From Prinzide] AdvReac dizziness Verified 05/03/24 08:18 & cramps vardenafil [From Levitra] AdvReac Disoriented Verified 05/03/24 08:18 Physical Exam Vitals: Vital Signs Temp Pulse Pulse Pulse Resp BP BP 05/04/24 11:27 70 05/04/24 11:17 72 05/04/24 08:00 97.9 F 65 18 160/77 05/04/24 07:54 70 05/04/24 07:43 66 05/04/24 03:11 97.6 F 61 18 126/66 05/03/24 23:22 97.9 F 87 18 135/78 05/03/24 20:15 97.7 F 64 20 143/82 05/03/24 20:14 69 05/03/24 20:09 63 05/03/24 19:46 63 18 161/80 05/03/24 17:50 61 18 135/74 05/03/24 16:14 72 05/03/24 16:08 68 Pulse Ox 05/04/24 11:27 05/04/24 11:17 05/04/24 08:00 97 05/04/24 07:54 05/04/24 07:43 05/04/24 03:11 97 05/03/24 23:22 100 05/03/24 20:15 99 05/03/24 20:14 05/03/24 20:09 05/03/24 19:46 99 05/03/24 17:50 98 05/03/24 16:14 05/03/24 16:08 Intake and Output 05/03/24 05/04/24 05/04/24 22:59 06:59 14:59 Intake Total 10 120 Balance 10 120 Intake: IV 10 Invasive Line 1 10 Oral 120 Other: Voiding Method Toilet Toilet # Voids 1 1 Weight 101.605 kg 102 kg Patient is awake comfortable no acute distress. Examination of the heart S1 and S2 Examination of the lungs bilateral breath sounds are heard Abdomen is soft nontender Examination of lower extremities shows no significant edema FLOWER MAKER exam grossly intact. No significant motor deficit noted. Results - Lab Results Most recent lab results Calcium 8.9 mg/dL (8.4-10.2) 05/04/24 06:16 Magnesium 2.2 mg/dL (1.6-2.3) 05/04/24 06:16 05/03/24 08:53 05/04/24 06:16 Assessment and Plan Assessment: 1. Acute kidney injury most likely associated with volume depletion. Check UA. 2. Chronic kidney disease stage IIIb with baseline creatinine around 1.8 to 2 mg/dL. Etiology is IgA nephropathy. Status posttreatment with steroids about 2 years ago with resolution of proteinuria. 3. History of Crohn's disease 4. Gastroesophageal reflux disease maintained on proton pump inhibitors 5. [place] metabolic acidosis associated with acute kidney injury. No significant diarrhea reported. 6. Chronic hypomagnesemia, maintained on supplementation as outpatient. Plan: Add IV bicarb Replace magnesium Repeat labs in a.m. Patient is advised to consider holding proton pump inhibitors and use Pepcid. Protonix can exacerbate the hypomagnesemia. Continue with Jardiance for now. Thank you for the consultation. We will continue to follow the patient with you during his hospitalization.
--- NOTE | 2024-05-04 14:28 | P.PN ---
Subjective Progress Note Date: 05/04/24 Patient is a 74-year-old male with a past medical history of Crohn's disease status post bowel resection, COPD on 2 L nasal cannula at home, CKD stage III, hypertension and hypomagnesemia who presents to the ED with left upper extremity numbness intermittently for 3 days. Patient also had 1 brief episode of numbness around his lip. 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 Patient states that last transfusion was 4 days ago. Patient states that when his magnesium is low he usually feels generalized weakness but has never had numbness. Patient states that the numbness and weakness gets worse with exertion and gets better with rest. Patient does have a history of smoking and he quit 6 years ago. Patient seen this morning. Patient states that he has numbness in his left upper extremity has improved but still has some. Physical exam General: [Alert and oriented, well nourished, no acute distress]. Eye: [PERRL, EOMI, normal conjunctiva]. HENT: [Normocephalic, clear tympanic membranes, normal hearing, moist oral mucosa, no scleral icterus, no sinus tenderness]. Neck: [Supple, non-tender, no carotid bruits, no JVD, no lymphadenopathy]. Lungs: [Clear to auscultation and percussion, non-labored respiration]. Heart: [Normal rate, regular rhythm, no murmur, gallop or edema]. Abdomen: [Soft, non-tender, non-distended, normal bowel sounds, no masses]. Musculoskeletal: [Normal range of motion and strength, no tenderness or swelling]. Skin: [Skin is warm, dry and pink, no rashes or lesions]. Neurologic: [Awake, alert, and oriented X3, CN II-XII intact]. Psychiatric: [Cooperative, appropriate mood and affect]. Assessment and plan Left upper extremity weakness and numbness Suspect this is due to hypomagnesemia However her symptoms are different from when he usually has hypomagnesemia so I will do workup for stroke Echo with bubble study Carotid ultrasound shows 50 to 69% stenosis in the right carotid artery. Unable to do CTA head and neck due to his renal function Echocardiogram shows normal EF with no PFO LDL is 21. No need for high intensity statin Check MRI brain without contrast Patient reports that his numbness weakness is improving in his left upper extremity Hypomagnesemia Patient's magnesium this morning is 2.2 Patient already established with nephrology and gets infusions twice a week Resume his magnesium supplement 400 mg daily History of Crohn's disease Status post resection Stable Continue with balsalazide and cholestyramine COPD on 2 L home O2 Stable Continue with CKD stage III with metabolic acidosis Creatinine baseline is around 2.0 Creatinine this morning is stable Nephrology started the patient on bicarb drip Hypertension Resume home meds DVT prophylaxis: Subcu heparin Objective - Vital Signs Vital signs: Vital Signs Temp 97.9 F 05/04/24 08:00 Pulse 70 05/04/24 11:27 Resp 18 05/04/24 08:00 BP 160/77 05/04/24 08:00 Pulse Ox 97 05/04/24 08:00 FiO2 Intake & Output 05/03/24 05/04/24 05/04/24 18:59 06:59 18:59 Intake Total 10 320 Balance 10 320 Weight 101.605 kg 102 kg Intake: IV 10 Invasive Line 1 10 Oral 320 Other: Voiding Method Toilet # Voids 1 - Labs CBC & Chem 7: 05/03/24 08:53 05/04/24 06:16 Labs: Abnormal Lab Results - Last 24 Hours (Table) 05/04/24 Range/Units 06:16 Potassium 5.3 H (3.5-5.1) mmol/L Chloride 117 H (98-107) mmol/L Carbon Dioxide 13 L (22-30) mmol/L BUN 24 H (9-20) mg/dL Creatinine 2.25 H (0.66-1.25) mg/dL Triglycerides 190.00 H (0.00-149.00) mg/dL
--- NOTE | 2024-05-04 17:21 | MR ---
EXAMINATION TYPE: MR brain wo con DATE OF EXAM: 05/04/2024 5:11 PM CLINICAL INDICATION: Male, 74 years old with history of TIA; PHH, TIA, weakness, left arm numbness. COMPARISON: 05/04/2024. TECHNIQUE: Multi planar, multi sequence imaging was performed through the brain including: T1, T2, In version recovery, Diffusion weighted imaging, and gradient echo imaging. No gadolinium was given. FINDINGS: Scattered foci of restricted diffusion within the right frontal and parietal lobe. The perez -white junctions, ventricular system, basal cisterns appear unremarkable. Scattered foci of high T2 signal intensity are seen within the periventricular white matter. Midline structures show no abnorm ality. The susceptibility weighted images do not reveal any evidence for micro-hemorrhage. The bone marrow signal is within normal limits. Paranasal sinuses and mastoid air cells: No significant paranasal sinus disease. Visualized orbits: Orbital contents are intact. IMPRESSION: 1. Scattered foci of acute/subacute CVA involving the right frontal/parietal and region. 2. Nonspecific white matter changes, likely secondary to small vessel ischemic disease. [facility], , 05/04/2024 5:19 PM
[2024-05-04] MEDS: CLOPIDOGREL 75 MG TAB PO STA (17:58)
[2024-05-04] MEDS: ASPIRIN 81 MG PO SCH (17:59)
[2024-05-05 06:30] LABS: Basophils % (A) 1 %; Eosinophils # (A) 0.3 k/uL (0-0.7); Eosinophils % (A) 6 %; HCT 33.5 % (39.0-53.0); HGB 10.8 gm/dL (13.0-17.5); Hypochromasia Slight; Lymphocytes # (A) 1.7 k/uL (1.0-4.8); Lymphocytes % (A) 29 %; MCH 28.8 pg (25.0-35.0); MCHC 32.1 g/dL (31.0-37.0); MCV 89.8 fL (80.0-100.0); Monocytes # (A) 0.5 k/uL (0-1.0); Monocytes % (A) 9 %; Neutrophils # (A) 3.1 k/uL (1.3-7.7); Neutrophils % (A) 53 %; Platelet Count 243 k/uL (150-450); RBC 3.73 m/uL (4.30-5.90); RDW 14.4 % (11.5-15.5); WBC 5.9 k/uL (3.8-10.6)
[2024-05-05 07:08] LABS: African American GFR (CKD) 37 (>60 ml/min/1.73 sqM); Anion Gap 7 mmol/L; Blood Urea Nitrogen 26 mg/dL (9-20); Calcium 8.4 mg/dL (8.4-10.2); Carbon Dioxide 19 mmol/L (22-30); Chloride 112 mmol/L (98-107); Glucose 98 mg/dL (74-99); Magnesium 1.6 mg/dL (1.6-2.3); Non-African American GFR(CKD) 32 (>60 ml/min/1.73 sqM); Potassium 4.4 mmol/L (3.5-5.1); Sodium 138 mmol/L (137-145)
[2024-05-05] MEDS: MAGNESIUM SULFATE-D5W PMX 1 GM in DEXTROSE/WATER 1 100ML.BAG IVPB SCH (09:30)
[2024-05-05] MEDS: CLOPIDOGREL 75 MG TAB PO SCH (09:31)
--- NOTE | 2024-05-05 10:04 | P.CNNES ---
History of Present Illness Consult date: 05/04/24 Requesting physician: Juvenal Allan Reason for Consult: TIA History of Present Illness: Patient is a 74-year-old right-handed male came to the hospital yesterday at 8:11 AM for 1 week history of focal neurological symptoms. Patient states that for last 1 week, his left arm has been going numb and weak. It mainly happens when he is stressed out, like cooking dishes, opening cans, after eating or going to bathroom. He had 1 episode of transient numbness of the left corner of the mouth, about a week ago, that lasted for 1 hour, but was enough for him to notice it. The left facial numbness did not recur, but the left arm symptoms have been coming off and on. He denies any slurred speech, or any double vision. He denies any focal weakness of the leg, although his balance is not good for last 6 months. As her symptoms persisted, he decided to come to the ER. Vital signs on arrival blood pressure 134/70, pulse rate 67 temperature 97.5. Blood test shows normal WBC hemoglobin 11.0, normal platelets, PT PTT. Electrolytes are normal, BUN 26, creatinine 2.30. Hepatic panel is normal, troponin negative. EKG showed sinus rhythm. CT head revealed no acute intracranial process. Nonspecific white matter changes, likely secondary to chronic small vessel ischemic disease. I personally reviewed CT head, agree with the findings. Chest x-ray revealed no acute cardiopulmonary process. Home medications include Lipitor 40 mg, metoprolol, mesalamine, Lexapro 20 mg, Jardiance, vitamin D, B12 and Protonix. Patient's home medications does not list aspirin, but he is positive that he has been taking aspirin 81 mg daily for 1 year. Patient has history of smoking 1 pack/day for last 50 years, quit 5 to 6 years ago. Patient has hypertension, denies diabetes. Patient denies any history of strokes or TIA. Denies alcohol use, he used to smoke marijuana in the past. 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 He was in the bathroom, trying to grab the pole, was coming short. He had no power in the left arm. Review of Systems All review of system reviewed, and unremarkable except the pertinent positive and negative mentioned in the HPI. Past Medical History Past Medical History: GERD/Reflux, Hypertension, Osteoarthritis (OA), Renal Disease Additional Past Medical History / Comment(s): BOWEL RESECTION X2 DUE TO INFECTION, CROHNS, IBS, HERNIATED DISC, COVID JUL 2021, HOSPTALIZED AUG 2021 WITH RASH & TOE WOUND - HEALED, KIDNEY DISEASE, SOB W/ HOME O2, LOW MAGNESIUM W/ WEEKLY INFUSIONS History of Any Multi-Drug Resistant Organisms: None Reported Past Surgical History: Appendectomy, Bowel Resection Additional Past Surgical History / Comment(s): "35 YEARS AGO- BOWEL RESECTION AND ILEOCECAL VALVE REMOVED WITH 1 FOOT OF INTESTINE, HAD 2ND BOWEL RESECTION 3 YEARS AGO Past Anesthesia/Blood Transfusion Reactions: No Reported Reaction Past Psychological History: Anxiety Smoking Status: Former smoker Past Alcohol Use History: None Reported Additional Past Alcohol Use History / Comment(s): QUIT SMOKING 2017, HX OF 1 PPD Past Drug Use History: None Reported - Past Family History Mother Family Medical History: Coronary Artery Disease (CAD), Diabetes Mellitus Additional Family Medical History / Comment(s): NIDDM Father Family Medical History: Coronary Artery Disease (CAD), Diabetes Mellitus, Hypertension Medications and Allergies Home Medications Medication Instructions Recorded Confirmed Type Cholecalciferol [Vitamin D3 (25 50 mcg PO BID 05/06/21 05/03/24 History Mcg = 1000 Iu)] Cyanocobalamin (Vitamin B-12) 1,000 mcg PO DAILY 05/06/21 05/03/24 History [Vitamin B-12] Cholestyramine/Aspartame 4 gm PO TID-W/MEALS 10/15/22 05/03/24 History [Cholestyramine Light Packet] Calcium Carbonate 500 mg PO QID 10/13/23 05/03/24 History Empagliflozin [Jardiance] 10 mg PO DAILY 02/17/24 05/03/24 History Sodium Zirconium Cyclosilicate 5 gm PO DAILY 02/17/24 05/03/24 History [Lokelma] Albuterol Inhaler [Ventolin Hfa 2 puff INHALATION RT-Q4H PRN 03/31/24 05/03/24 History Inhaler] Atorvastatin [Lipitor] 40 mg PO HS 03/31/24 05/03/24 History Escitalopram [Lexapro] 20 mg PO DAILY 03/31/24 05/03/24 History Fluticasone Propion/Salmeterol 1 puff INHALATION RT-BID 03/31/24 05/03/24 History [Wixela 100-50 Inhub] Ipratropium-Albuterol Nebulize 3 ml INHALATION RT-Q4H 03/31/24 05/03/24 History [Duoneb 0.5 mg-3 mg/3 ml Soln] Magnesium Glycinate 200mg 600 mg PO DAILY 03/31/24 05/03/24 History Mesalamine [Asacol Hd] 800 mg PO TID 03/31/24 05/03/24 History Metoprolol Succinate (ER) [Toprol 25 mg PO DAILY 03/31/24 05/03/24 History XL] Pantoprazole Sodium [Protonix] 20 mg PO BID 05/03/24 05/03/24 History Allergies Allergy/AdvReac Type Severity Reaction Status Date / Time etodolac AdvReac Abdominal Verified 05/03/24 08:18 Pain hydrochlorothiazide AdvReac dizziness Verified 05/03/24 08:18 [From Prinzide] & cramps lisinopril [From Prinzide] AdvReac dizziness Verified 05/03/24 08:18 & cramps vardenafil [From Levitra] AdvReac Disoriented Verified 05/03/24 08:18 Physical Examination - Vital Signs Vital Signs: Vital Signs Temp Pulse Pulse Pulse Resp BP BP 05/04/24 15:26 72 05/04/24 15:17 74 05/04/24 15:02 98.1 F 72 18 119/71 05/04/24 14:00 18 05/04/24 11:27 70 05/04/24 11:17 72 05/04/24 08:00 97.9 F 65 18 160/77 05/04/24 07:54 70 05/04/24 07:43 66 05/04/24 03:11 97.6 F 61 18 126/66 05/03/24 23:22 97.9 F 87 18 135/78 05/03/24 20:15 97.7 F 64 20 143/82 05/03/24 20:14 69 05/03/24 20:09 63 05/03/24 19:46 63 18 161/80 05/03/24 17:50 61 18 135/74 05/03/24 16:14 72 05/03/24 16:08 68 Pulse Ox 05/04/24 15:26 05/04/24 15:17 05/04/24 15:02 98 05/04/24 14:00 05/04/24 11:27 05/04/24 11:17 05/04/24 08:00 97 05/04/24 07:54 05/04/24 07:43 05/04/24 03:11 97 05/03/24 23:22 100 05/03/24 20:15 99 05/03/24 20:14 05/03/24 20:09 05/03/24 19:46 99 05/03/24 17:50 98 05/03/24 16:14 05/03/24 16:08 Intake and Output 05/04/24 05/04/24 05/04/24 06:59 14:59 22:59 Intake Total 320 Balance 320 Intake: Oral 320 Other: Voiding Method Toilet # Voids 1 Weight 102 kg Patient is an elderly male, very pleasant, in no acute distress. Patient is alert awake oriented to time place and person. Speech and language functions are normal. Patient can name and repeat very well. No aphasia or dysarthria. Attention, concentration and fund of knowledge is adequate. On cranial nerve examination, pupils are equal, round and reacting to light, visual pulliam are full on confrontation, with no neglect on double simultaneous stimulation. Extraocular muscles are intact with no nystagmus. Face is symmetric, tongue protrudes to the midline. Palatal elevation and sensation normal, hearing and shoulder shrug normal, facial sensation normal. On muscle strength testing, there is no pronator drift and the strength is normal in arms and legs distally and proximally. Deep tendon reflexes are (right/left) biceps trace/trace, brachioradialis trace/trace, knee 2+/1, plantars are downgoing bilaterally. Sensory to touch is equal with no neglect on double simultaneous stimulation. Cerebellar function showed no ataxia for [id number] testing, although his left arm was slightly tremulous. No dysdiadochokinesia. No ataxia for heel -to-bennett testing on either side. Tone and bulk of muscles normal. Gait deferred.. On general examination, there is no carotid bruit or murmur, S1-S2 audible. Chest is clear on consultation. Abdomen is soft nontender. No organomegaly, bowel sounds present. Peripheral pulses are present. No peripheral edema. Results - Laboratory Findings CBC and BMP: 05/05/24 06:14 05/05/24 06:14 Abnormal Lab Findings: Abnormal Labs 05/03/24 05/03/24 05/04/24 08:53 08:53 06:16 RBC 3.87 L Hgb 11.0 L Hct 35.7 L MCHC 30.9 L Potassium 5.3 H Chloride 118 H 117 H Carbon Dioxide 10 L 13 L BUN 26 H 24 H Creatinine 2.30 H 2.25 H Magnesium 1.1 L Total Protein 5.8 L Albumin 3.4 L Triglycerides 190.00 H Assessment and Plan Assessment: * Stroke/recurrent TIA manifesting with recurrent left arm weakness. Patient had 1 episode of transient left perioral numbness (about a week ago). His symptoms have improved, and current NIH stroke scale is 1. MRI confirmed scattered foci of acute/subacute CVA involving the right frontal/parietal region, somewhat in the watershed territory between the right MCA/JERED. * Symptomatic right ICA stenosis. * Hypertension * Diabetes * Moderate renal insufficiency * Hypomagnesemia Plan: * Patient was not a candidate for tPA because he came outside the window for tPA. * MRI of the brain without contrast, revealed scattered foci of acute/subacute CVA involving the right frontal/parietal region. Nonspecific white matter changes, likely secondary to small vessel ischemic disease. I personally reviewed MRI, agree with the findings. There is evidence of CVA involving the watershed territory between the right MCA/CVA. * 2-D echo revealed normal left ventricular size, wall thickness with no obvious regional wall motion abnormalities. LVEF 55 to 60%. Normal left and right atrial size. Negative agitated saline bubble study for [id number] shunt. No valvular dysfunction. * Carotid Doppler, revealed 50 to 69% stenosis of the right carotid bifurcation by peak systolic velocity and ratio. Less than 50% stenosis of the left carot id bifurcation. Antegrade flow in both vertebral arteries. * Consult vascular surgery for symptomatic right ICA stenosis. * Fasting a.m. lipid panel cholesterol 104, LDL 21, HDL 45 and triglycerides 190. Continue Lipitor 40 mg. * Hemoglobin A1c 5.7 * Permissive hypertension for next 24-48 hours * Patient was taking aspirin 81 mg daily prior to arrival. Patient is having recurrent focal symptoms, concern for recurrent stroke. Therefore we will fully load patient with Plavix 300 mg x 1 dose followed by 75 mg daily. * Neuro checks every 2 hours * Telemetry monitoring rule out any arrhythmia * PT, OT, speech therapy * DVT prophylaxis: Heparin 5000 units subcu every 12 hours * Neurology will continue to follow. Thank you for the consult.
--- NOTE | 2024-05-05 11:19 | P.PN ---
Subjective patient is seen for follow-up for acute kidney injury and chronic kidney disease. Currently maintained on bicarb drip with improvement in metabolic acidosis. Serum magnesium at 1.6 today. Serum creatinine decreased to 1.9 today. Next No significant complaints. MRI of the head shows scattered foci of acute/subacute CVA in the right frontoparietal region Objective - Vital Signs Vital signs: Vital Signs Temp 97.5 F L 05/05/24 08:00 Pulse 88 05/05/24 09:08 Resp 18 05/05/24 08:00 BP 142/73 05/05/24 08:00 Pulse Ox 98 05/05/24 08:00 FiO2 Intake & Output 05/04/24 05/05/24 05/05/24 18:59 06:59 18:59 Intake Total 440 10 900 Balance 440 10 900 Weight 102.6 kg Intake: IV 10 Invasive Line 1 10 Oral 440 900 Other: Voiding Method Toilet # Voids 2 2 - Exam Patient is awake comfortable no acute distress. 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 No significant motor deficit noted. - Labs CBC & Chem 7: 05/05/24 06:14 05/05/24 06:14 Labs: Abnormal Lab Results - Last 24 Hours (Table) 05/05/24 05/05/24 Range/Units 06:14 06:14 RBC 3.73 L (4.30-5.90) m/uL Hgb 10.8 L (13.0-17.5) gm/dL Hct 33.5 L (39.0-53.0) % Chloride 112 H (98-107) mmol/L Carbon Dioxide 19 L (22-30) mmol/L BUN 26 H (9-20) mg/dL Creatinine 1.97 H (0.66-1.25) mg/dL Assessment and Plan Assessment: 1. Acute kidney injury most likely associated with volume depletion. Check UA. 2. Chronic kidney disease stage IIIb with baseline creatinine around 1.8 to 2 mg/dL. Etiology is IgA nephropathy. Status post treatment with steroids about 2 years ago with resolution of proteinuria 3. History of Crohn's disease 4. Gastroesophageal reflux disease maintained on proton pump inhibitors 5. [place] metabolic acidosis associated with acute kidney injury. No significant diarrhea reported. 6. Chronic hypomagnesemia, maintained on supplementation as outpatient. 7. 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 Patient is advised to consider holding proton pump inhibitors and use Pepcid. Protonix can exacerbate the hypomagnesemia. Continue with Jardiance for now. Add amiloride as outpatient for hypomagnesemia.
--- NOTE | 2024-05-05 11:36 | P.GSCN ---
History of Present Illness Consult date: 05/05/24 Reason for Consult: Symptomatic right ICA Requesting physician: Nik Lobo History of present illness: This a pleasant 74-year-old male with a history of Crohn's disease, chronic hypomagnesemia, chronic kidney disease, COPD on home oxygen, hypertension, coronary artery disease, and questionable diabetes who had presented to the emergency department with complaints of generalized weakness which she has been having for the last 1 year duration. He is also concerned with left-sided numbness and tingling and cramping in his upper extremity as well as reported left lip numbness and tingling. He states about 7 to 10 days ago he started having cramping and numbness and tingling in his left upper extremity. This has been coming and going states that he feels like it comes more often if he is doing something more active. He also reported 1 time last week where he felt that the left side of his lips and cheek felt numb and tingly as well which lasted for a day or so. He denies any other focal deficits such as lower extremity weakness, difficulty speaking, visual loss or confusion. As part of his workup he had a CT of the brain that showed no acute findings, brain MRI with findings of acute/subacute CVA involving the right frontal/parietal region along with carotid ultrasound with findings of 50 to 69% right ICA stenosis. Vascular surgery was consulted for symptomatic right ICA stenosis. Patient c urrently denies any chest pain, states he has chronic shortness of breath, chronic weakness which is generalized, no focal deficits at this time. Review of Systems A 14 point review systems was completed all pertinent positives and negatives as stated in the HPI. Past Medical History Past Medical History: GERD/Reflux, Hypertension, Osteoarthritis (OA), Renal Disease Additional Past Medical History / Comment(s): BOWEL RESECTION X2 DUE TO INFECTION, CROHNS, IBS, HERNIATED DISC, COVID JUL 2021, HOSPTALIZED AUG 2021 WITH RASH & TOE WOUND - HEALED, KIDNEY DISEASE, SOB W/ HOME O2, LOW MAGNESIUM W/ WEEKLY INFUSIONS History of Any Multi-Drug Resistant Organisms: None Reported Past Surgical History: Appendectomy, Bowel Resection Additional Past Surgical History / Comment(s): "35 YEARS AGO- BOWEL RESECTION AND ILEOCECAL VALVE REMOVED WITH 1 FOOT OF INTESTINE, HAD 2ND BOWEL RESECTION 3 YEARS AGO Past Anesthesia/Blood Transfusion Reactions: No Reported Reaction Past Psychological History: Anxiety Smoking Status: Former smoker Past Alcohol Use History: None Reported Additional Past Alcohol Use History / Comment(s): QUIT SMOKING 2018, HX OF 1 PPD Past Drug Use History: None Reported - Past Family History Mother Family Medical History: Coronary Artery Disease (CAD), Diabetes Mellitus Additional Family Medical History / Comment(s): NIDDM Father Family Medical History: Coronary Artery Disease (CAD), Diabetes Mellitus, Hypertension Medications and Allergies Home Medications Medication Instructions Recorded Confirmed Type Cholecalciferol [Vitamin D3 (25 50 mcg PO BID 05/06/21 05/03/24 History Mcg = 1000 Iu)] Cyanocobalamin (Vitamin B-12) 1,000 mcg PO DAILY 05/06/21 05/03/24 History [Vitamin B-12] Cholestyramine/Aspartame 4 gm PO TID-W/MEALS 10/15/22 05/03/24 History [Cholestyramine Light Packet] Calcium Carbonate 500 mg PO QID 10/13/23 05/03/24 History Empagliflozin [Jardiance] 10 mg PO DAILY 02/17/24 05/03/24 History Sodium Zirconium Cyclosilicate 5 gm PO DAILY 02/17/24 05/03/24 History [Lokelma] Albuterol Inhaler [Ventolin Hfa 2 puff INHALATION RT-Q4H PRN 03/31/24 05/03/24 History Inhaler] Atorvastatin [Lipitor] 40 mg PO HS 03/31/24 05/03/24 History Escitalopram [Lexapro] 20 mg PO DAILY 03/31/24 05/03/24 History Fluticasone Propion/Salmeterol 1 puff INHALATION RT-BID 03/31/24 05/03/24 History [Wixela 100-50 Inhub] Ipratropium-Albuterol Nebulize 3 ml INHALATION RT-Q4H 03/31/24 05/03/24 History [Duoneb 0.5 mg-3 mg/3 ml Soln] Magnesium Glycinate 200mg 600 mg PO DAILY 03/31/24 05/03/24 History Mesalamine [Asacol Hd] 800 mg PO TID 03/31/24 05/03/24 History Metoprolol Succinate (ER) [Toprol 25 mg PO DAILY 03/31/24 05/03/24 History XL] Pantoprazole Sodium [Protonix] 20 mg PO BID 05/03/24 05/03/24 History Allergies Allergy/AdvReac Type Severity Reaction Status Date / Time etodolac AdvReac Abdominal Verified 05/03/24 08:18 Pain hydrochlorothiazide AdvReac dizziness Verified 05/03/24 08:18 [From Prinzide] & cramps lisinopril [From Prinzide] AdvReac dizziness Verified 05/03/24 08:18 & cramps vardenafil [From Levitra] AdvReac Disoriented Verified 05/03/24 08:18 Surgical - Exam Vital Signs Temp Pulse Resp BP Pulse Ox 97.5 F L 67 18 134/70 99 05/03/24 08:15 05/03/24 08:15 05/03/24 08:15 05/03/24 08:15 05/03/24 08:15 General appearance: The patient is alert, oriented, appears in no acute dis tress. HET: Head is normocephalic and atraumatic. Pupils are equal and reactive. Neck: Supple. No audible carotid bruit. Heart: Regular. Lungs: Equal expansion, normal respiratory effort. Abdomen: Soft, nontender, nondistended. Extremities: Normal skin color and turgor. Palpable radial and DP pulse. Neurological: No focal deficits. Strength and sensation are grossly intact. Results - Labs 05/05/24 06:14 05/05/24 06:14 Abnormal Lab Results - Last 24 Hours (Table) 05/04/24 05/05/24 05/05/24 Range/Units 06:16 06:14 06:14 RBC 3.73 L (4.30-5.90) m/uL Hgb 10.8 L (13.0-17.5) gm/dL Hct 33.5 L (39.0-53.0) % Chloride 112 H (98-107) mmol/L Carbon Dioxide 19 L (22-30) mmol/L BUN 26 H (9-20) mg/dL Creatinine 1.97 H (0.66-1.25) mg/dL Triglycerides 190.00 H (0.00-149.00) mg/dL Diabetes panel 05/04/24 05/04/24 05/05/24 Range/Units 06:16 06:16 06:14 Sodium 138 (137-145) mmol/L Potassium 4.4 (3.5-5.1) mmol/L Chloride 112 H (98-107) mmol/L Carbon Dioxide 19 L (22-30) mmol/L BUN 26 H (9-20) mg/dL Creatinine 1.97 H (0.66-1.25) mg/dL Glucose 98 (74-99) mg/dL Hemoglobin A1c 5.7 (<=6.0) % Calcium 8.4 (8.4-10.2) mg/dL Triglycerides 190.00 H (0.00-149.00) mg/dL HDL Cholesterol 45.00 (40.00-60.00) mg/dL Calcium panel 05/05/24 Range/Units 06:14 Calcium 8.4 (8.4-10.2) mg/dL Pituitary panel 05/05/24 Range/Units 06:14 Sodium 138 (137-145) mmol/L Potassium 4.4 (3.5-5.1) mmol/L Chloride 112 H (98-107) mmol/L Carbon Dioxide 19 L (22-30) mmol/L BUN 26 H (9-20) mg/dL Creatinine 1.97 H (0.66-1.25) mg/dL Glucose 98 (74-99) mg/dL Calcium 8.4 (8.4-10.2) mg/dL Adrenal panel 05/05/24 Range/Units 06:14 Sodium 138 (137-145) mmol/L Potassium 4.4 (3.5-5.1) mmol/L Chloride 112 H (98-107) mmol/L Carbon Dioxide 19 L (22-30) mmol/L BUN 26 H (9-20) mg/dL Creatinine 1.97 H (0.66-1.25) mg/dL Glucose 98 (74-99) mg/dL Calcium 8.4 (8.4-10.2) mg/dL - Imaging Comments: Carotid ultrasound reports 50 to 69% stenosis of right carotid bifurcation. Less than 50% stenosis of left carotid bifurcation Brain MRI report scattered foci of acute/subacute CVA involving the right frontal/parietal and region. Nonspecific white matter changes, likely secondary to small vessel ischemic disease. Brain CT no acute intracranial process. Nonspecific white matter changes, likely secondary to chronic small vessel ischemic disease. Echocardiogram reports left ventricular EF 55 to 60%, mild RV dilation with normal systolic function, no right to left intracardiac shunting on bubble study, no significant valvular dysfunction. Assessment and Plan Assessment: 1. Symptomatic right internal carotid artery stenosis 2. Acute/subacute stroke involving right frontal/parietal region 3. COPD oxygen dependent 4. Coronary artery disease 5. Hypomagnesemia 6. Crohn's disease 7. Former smoker Plan: 1. Patient would benefit from carotid surgical intervention. TCAR versus carotid endarterectomy discussed with patient. Including risk and benefits. Timing to be determined. 2. MRA neck ordered 3. Continue aspirin, Plavix and atorvastatin 4. Consult to cardiology for cardiac clearance for TCAR/carotid endarterectomy 5. Continue with recommendations from neurology 6. Continue with recommendations from nephrology 7. PT/OT/ST on consult 8. Rest of medical management per primary medical team Thank you for this consultation, we will continue to follow. The impression and plan of care has been dictated as directed. Dr. Mena I performed a history and examination of this patient, discussed the same with the dictator. I agree with the dictator's note ,documented as a scribe. Any additional findings or plans will be noted.
--- NOTE | 2024-05-05 12:33 | P.PN ---
Subjective Progress Note Date: 05/05/24 Patient is a 74-year-old male with a past medical history of Crohn's disease status post bowel resection, COPD on 2 L nasal cannula at home, CKD stage III, hypertension and hypomagnesemia who presents to the ED with left upper extremity numbness intermittently for 3 days. Patient also had 1 brief episode of numbness around his lip. Patient gets magnesium transfusions by his pharmacologist twice a week. Patient states that last transfusion was 4 days ago. Patient states that when his magnesium is low he usually feels generalized weakness but has never had numbness. Patient states that the numbness and weakness gets worse with exertion and gets better with rest. Patient does have a history of smoking and he quit 6 years ago. Patient had a echocardiogram that showed normal LV function with no PFO. Patient is LDL is 21 so no need for high intensity statin. Patient's MRI did show right sided acute infarct. Patient's carotid Doppler showed 50 to 69% stenosis in the right carotid artery. Vascular surgery was consulted. Vascular surgery ordered MRA and cardiology for clearance for possible vascular intervention. Patient states that he did have some numbness in his left upper extremity last night. He states that it is almost gone this morning. Physical exam General: [Alert and oriented, well nourished, no acute distress]. Eye: [PERRL, EOMI, normal conjunctiva]. HENT: [Normocephalic, clear tympanic membranes, normal hearing, moist oral mucosa, no scleral icterus, no sinus tenderness]. Neck: [Supple, non-tender, no carotid bruits, no JVD, no lymphadenopathy]. Lungs: [Clear to auscultation and percussion, non-labored respiration]. Heart: [Normal rate, regular rhythm, no murmur, gallop or edema]. Abdomen: [Soft, non-tender, non-distended, normal bowel sounds, no masses]. Musculoskeletal: [Normal range of motion and strength, no tenderness or swellin g]. Skin: [Skin is warm, dry and pink, no rashes or lesions]. Neurologic: [Awake, alert, and oriented X3, CN II-XII intact]. Psychiatric: [Cooperative, appropriate mood and affect]. Assessment and plan Acute CVA Left upper extremity weakness and numbness Patient is high risk for recurrence of stroke due to the right carotid artery stenosis I reviewed the MRI that showed right-sided acute CVA I reviewed note from vascular surgery who ordered MRA of the head and neck and plans to do a vascular intervention after cardiac clearance Patient started on aspirin 81 mg p.o. daily and Plavix 75 mg p.o. daily Neurology consult is pending Echocardiogram shows normal EF with no PFO LDL is 21. Patient already on high intensity statin atorvastatin PO 40 mg at bedtime PT and OT recommend home No need for speech therapy as patient does not have any dysphagia. Hypomagnesemia Patient's magnesium this morning is 1.6 I will order for 4 g of magnesium sulfate Trend magnesium daily Patient already established with nephrology and gets infusions twice a week Resume his magnesium supplement 400 mg daily History of Crohn's disease Status post resection Stable Continue with balsalazide and cholestyramine COPD on 2 L home O2 Stable Continue with CKD stage III with metabolic acidosis Creatinine baseline is around 2.0 Creatinine this morning is stable at 1.97. Nephrology started the patient on bicarb drip and bicarb this morning is 19 I reviewed nephrology note who recommends to continue with the bicarb drip Hypertension Resume home meds DVT prophylaxis: Subcu heparin Objective - Vital Signs Vital signs: Vital Signs Temp 97.3 F L 05/05/24 11:59 Pulse 72 05/05/24 12:05 Resp 18 05/05/24 11:59 BP 158/86 05/05/24 11:59 Pulse Ox 99 05/05/24 11:59 FiO2 Intake & Output 05/04/24 05/05/24 05/05/24 18:59 06:59 18:59 Intake Total 440 10 900 Balance 440 10 900 Weight 102.6 kg Intake: IV 10 Invasive Line 1 10 Oral 440 900 Other: Voiding Method Toilet # Voids 2 2 - Labs CBC & Chem 7: 05/05/24 06:14 05/05/24 06:14 Labs: Abnormal Lab Results - Last 24 Hours (Table) 05/05/24 05/05/24 Range/Units 06:14 06:14 RBC 3.73 L (4.30-5.90) m/uL Hgb 10.8 L (13.0-17.5) gm/dL Hct 33.5 L (39.0-53.0) % Chloride 112 H (98-107) mmol/L Carbon Dioxide 19 L (22-30) mmol/L BUN 26 H (9-20) mg/dL Creatinine 1.97 H (0.66-1.25) mg/dL
--- NOTE | 2024-05-05 14:24 | P.CRDCN ---
History of Present Illness History of present illness: HISTORY OF PRESENT ILLNESS: This is a 74-year-old with a past medical history significant for coronary artery disease with chronic total occlusion of the circumflex, COPD, chronic kidney disease, hypertension, hyperlipidemia, and former nicotine dependence. Patient follows in the office with Dr. Ac. We have been asked to see the patient in consultation for cardiac clearance. Patient examined at the bedside. Patient initially presented to the hospital with generalized weakness, along with left-sided numbness and tingling. Patient was found to have acute/subacute stroke. Patient also found to have right internal carotid artery stenosis. He has been followed by vascular surgery with tentative plans for TCAR versus carotid endarterectomy. Patient currently denies any chest pain or pressure. He denies any shortness of breath. Patient denies any episodes of syncope. Angelika seals states he has been somewhat active at home prior to coming to the hospital. He reports he can go up 1 flight of stairs without shortness of breath or chest pain. Patient reports he is a former cigarette smoker and quit smoking about 5 or 6 years ago. DIAGNOSTICS: - EKG reveals sinus mechanism with no signs of acute ischemia - Chest xray negative for acute process - Laboratory data: WBC 5.9. Hemoglobin 10.8. Platelet count 243. Sodium 138. Potassium 4.4. BUN 26. Creatinine 1.97. Troponin negative x 1. Magnesium 1.6. - Current home cardiac medications include Lipitor 40 mg at night, metoprolol succinate 25 mg daily, Jardiance 10 mg daily - Most recent echocardiogram obtained in May 2024 revealed ejection fraction 55 to 60%, no obvious regional wall motion abnormalities, negative bubble study, trace mitral regurgitation, mild to moderate pulmonic regurgitation, trace tri cuspid regurgitation - Cardiac catheterization history: October 2022 revealing chronic occlusion of the distal circumflex coronary artery without significant obstructive CAD involving the rest of the coronary arteries. REVIEW OF SYSTEMS: At the time of my exam: CONSTITUTIONAL: Denies fever or chills. HEENT: Denies blurred vision, vision changes, or eye pain. Denies hemoptysis CARDIOVASCULAR: Denies chest pain. Denies orthopnea. Denies PND. Denies palpitations RESPIRATORY: Denies shortness of breath. GASTROINTESTINAL: Denies abdominal pain. Denies nausea or vomiting. HEMATOLOGIC: Denies bleeding disorders. GENITOURINARY: Denies any blood in urine. SKIN: Denies pruitis. Denies rash. PHYSICAL EXAM: VITAL SIGNS: Reviewed. GENERAL: Well-developed in no acute distress. HEENT: Head is normocephalic. Pupils are equal, round. Sclerae anicteric. Mucous membranes of the mouth are moist. Neck supple. No JVD or thyromegaly LUNGS: Respirations even and unlabored. Lungs essentially clear to auscultation bilaterally. HEART: Regular rate and rhythm. S1 and S2 heard. ABDOMEN: Soft. Nondistended. Nontender. EXTREMITIES: Normal range of motion. No clubbing or cyanosis. Peripheral pulses intact. No lower extremity edema NEUROLOGIC: Awake and alert. Oriented x 3. ASSESSMENT: Perioperative evaluation Symptomatic right internal carotid artery stenosis Acute/subacute stroke involving right frontal/parietal region History of COPD Chronic hypoxic respiratory failure on home oxygen Coronary artery disease with chronic total occlusion of the distal circumflex, per cath 10/2022 Chronic kidney disease Hypertension Hyperlipidemia History of Crohn's disease Former nicotine dependence PLAN: 2D echo obtained and reviewed Continue current cardiac medications Patient without complaints of angina and is clinically not in congestive heart failure. Patient is currently optimized for surgical intervention. There are no absolute contraindications for patient to proceed with vascular surgery from a cardiac standpoint Further recommendations pending patient course Nurse practitioner note has been reviewed by physician. Signing provider agrees with the documented findings, assessment, and plan of care documented by HOGSHEAD PRESS OPERATOR as a scribe. Past Medical History Past Medical History: GERD/Reflux, Hypertension, Osteoarthritis (OA), Renal Disease Additional Past Medical History / Comment(s): BOWEL RESECTION X2 DUE TO INFECTION, CROHNS, IBS, HERNIATED DISC, COVID JUL 2021, HOSPTALIZED AUG 2021 WITH RASH & TOE WOUND - HEALED, KIDNEY DISEASE, SOB W/ HOME O2, LOW MAGNESIUM W/ WEEKLY INFUSIONS History of Any Multi-Drug Resistant Organisms: None Reported Past Surgical History: Appendectomy, Bowel Resection Additional Past Surgical History / Comment(s): "35 YEARS AGO- BOWEL RESECTION AND ILEOCECAL VALVE REMOVED WITH 1 FOOT OF INTESTINE, HAD 2ND BOWEL RESECTION 3 YEARS AGO Past Anesthesia/Blood Transfusion Reactions: No Reported Reaction Past Psychological History: Anxiety Smoking Status: Former smoker Past Alcohol Use History: None Reported Additional Past Alcohol Use History / Comment(s): QUIT SMOKING 2017, HX OF 1 PPD Past Drug Use History: None Reported - Past Family History Mother Family Medical History: Coronary Artery Disease (CAD), Diabetes Mellitus Additional Family Medical History / Comment(s): NIDDM Father Family Medical History: Coronary Artery Disease (CAD), Diabetes Mellitus, Hypertension Medications and Allergies Home Medications Medication Instructions Recorded Confirmed Type Cholecalciferol [Vitamin D3 (25 50 mcg PO BID 05/06/21 05/03/24 History Mcg = 1000 Iu)] Cyanocobalamin (Vitamin B-12) 1,000 mcg PO DAILY 05/06/21 05/03/24 History [Vitamin B-12] Cholestyramine/Aspartame 4 gm PO TID-W/MEALS 10/15/22 05/03/24 History [Cholestyramine Light Packet] Calcium Carbonate 500 mg PO QID 10/13/23 05/03/24 History Empagliflozin [Jardiance] 10 mg PO DAILY 02/17/24 05/03/24 History Sodium Zirconium Cyclosilicate 5 gm PO DAILY 02/17/24 05/03/24 History [Lokelma] Albuterol Inhaler [Ventolin Hfa 2 puff INHALATION RT-Q4H PRN 03/31/24 05/03/24 History Inhaler] Atorvastatin [Lipitor] 40 mg PO HS 03/31/24 05/03/24 History Escitalopram [Lexapro] 20 mg PO DAILY 03/31/24 05/03/24 History Fluticasone Propion/Salmeterol 1 puff INHALATION RT-BID 03/31/24 05/03/24 History [Wixela 100-50 Inhub] Ipratropium-Albuterol Nebulize 3 ml INHALATION RT-Q4H 03/31/24 05/03/24 History [Duoneb 0.5 mg-3 mg/3 ml Soln] Magnesium Glycinate 200mg 600 mg PO DAILY 03/31/24 05/03/24 History Mesalamine [Asacol Hd] 800 mg PO TID 03/31/24 05/03/24 History Metoprolol Succinate (ER) [Toprol 25 mg PO DAILY 03/31/24 05/03/24 History XL] Pantoprazole Sodium [Protonix] 20 mg PO BID 05/03/24 05/03/24 History Allergies Allergy/AdvReac Type Severity Reaction Status Date / Time etodolac AdvReac Abdominal Verified 05/03/24 08:18 Pain hydrochlorothiazide AdvReac dizziness Verified 05/03/24 08:18 [From Prinzide] & cramps lisinopril [From Prinzide] AdvReac dizziness Verified 05/03/24 08:18 & cramps vardenafil [From Levitra] AdvReac Disoriented Verified 05/03/24 08:18 Physical Exam Vitals: Vital Signs Temp Pulse Pulse Resp BP Pulse Ox 05/05/24 12:05 72 05/05/24 11:59 97.3 F L 70 18 158/86 99 05/05/24 11:56 68 05/05/24 09:08 88 05/05/24 08:59 87 05/05/24 08:00 97.5 F L 62 18 142/73 98 05/05/24 04:00 63 18 140/75 98 05/05/24 00:00 72 20 117/59 95 05/04/24 21:14 70 05/04/24 21:02 72 05/04/24 20:00 97.5 F L 68 20 157/81 97 05/04/24 15:26 72 05/04/24 15:17 74 05/04/24 15:02 98.1 F 72 18 119/71 98 Intake and Output 05/04/24 05/05/24 05/05/24 22:59 06:59 14:59 Intake Total 130 900 Balance 130 900 Intake: IV 10 Invasive Line 1 10 Oral 120 900 Other: Voiding Method Toilet Toilet # Voids 1 2 2 Weight 102.6 kg Results 05/05/24 06:14 05/05/24 06:14 CBC 05/05/24 Range/Units 06:14 WBC 5.9 (3.8-10.6) k/uL RBC 3.73 L (4.30-5.90) m/uL Hgb 10.8 L (13.0-17.5) gm/dL Hct 33.5 L (39.0-53.0) % Plt Count 243 (150-450) k/uL Comprehensive Metabolic Panel 05/05/24 Range/Units 06:14 Sodium 138 (137-145) mmol/L Potassium 4.4 (3.5-5.1) mmol/L Chloride 112 H (98-107) mmol/L Carbon Dioxide 19 L (22-30) mmol/L BUN 26 H (9-20) mg/dL Creatinine 1.97 H (0.66-1.25) mg/dL Glucose 98 (74-99) mg/dL Calcium 8.4 (8.4-10.2) mg/dL Current Medications Generic Name Dose Route Start Last Admin Trade Name Freq PRN Reason Stop Dose Admin Albuterol Sulfate 2.5 mg 05/03/24 12:10 Albuterol Nebulized 2.5 Mg/3 Ml INHALATION RT-Q4H PRN Shortness Of Breath Albuterol/Ipratropium 3 ml 05/03/24 20:00 05/05/24 11:55 Ipratropium-Albuterol 3 Ml Neb INHALATION 3 ml RT-QID ANGELA Administration Aspirin 81 mg 05/04/24 18:00 05/05/24 09:31 Aspirin 81 Mg PO 81 mg DAILY ANGELA Administration Atorvastatin Calcium 40 mg 05/03/24 21:00 05/04/24 20:58 Atorvastatin 40 Mg Tab PO 40 mg HS ANGELA Administration Balsalazide 2,250 mg 05/03/24 16:00 05/05/24 09:32 Balsalazide Disodium 750 Mg Capsule PO 2,250 mg TID ANGELA Administration Budesonide/Formoterol Fumarate 2 puff 05/03/24 20:00 05/05/24 08:58 Symbicort 80-4.5 Mcg Inhaler INHALATION 2 puff RT-BID ANGELA Administration Cholestyramine Resin 4 gm 05/03/24 12:30 05/05/24 11:53 Cholestyramine (With Sugar) 4 Gm Packet PO 4 gm TID-W/MEALS ANGELA Administration Clopidogrel Bisulfate 75 mg 05/05/24 09:00 05/05/24 09:31 Clopidogrel 75 Mg Tab PO 75 mg DAILY ANGELA Administration Dapagliflozin 5 mg 05/04/24 09:00 05/05/24 09:31 Dapagliflozin Propanediol 5 Mg Tablet PO 5 mg DAILY ANGELA Administration Escitalopram Oxalate 20 mg 05/04/24 09:00 05/05/24 09:31 Escitalopram 20 Mg Tab PO 20 mg DAILY ANGELA Administration Heparin Sodium (Porcine) 5,000 unit 05/03/24 21:00 05/05/24 09:31 Heparin Sodium,Porcine 5,000 Unit/Ml 1 Ml Vial SQ 5,000 unit Q12HR ANGELA Administration Sodium Bicarbonate 150 ml/ 1,150 mls @ 100 mls/hr 05/04/24 11:00 05/05/24 13:16 Dextrose/Water IV 100 mls/hr .[id number] ANGELA Administration Magnesium Oxide 400 mg 05/04/24 21:00 05/05/24 09:31 Magnesium Oxide 400 Mg Tab PO 400 mg BID ANGELA Administration Metoprolol Succinate 25 mg 05/04/24 09:00 05/05/24 09:31 Metoprolol Succinate (Er) 25 Mg Tab.Er.24h PO 25 mg DAILY ANGELA Administration Intake and Output 05/04/24 05/05/24 05/05/24 22:59 06:59 14:59 Intake Total 130 900 Balance 130 900 Intake: IV 10 Invasive Line 1 10 Oral 120 900 Other: Voiding Method Toilet Toilet # Voids 1 2 2 Weight 102.6 kg 05/05/24 06:14 05/05/24 06:14
--- NOTE | 2024-05-06 00:02 | MR ---
EXAMINATION TYPE: MR angio neck wo/w con DATE OF EXAM: 05/05/2024 2:39 PM CLINICAL INDICATION: Male, 74 years old with history of acute stroke, evaluate carotid disease; acute stroke, evaluate carotid disease COMPARISON: 05/03/2024 TECHNIQUE: Multiplanar, multi-sequence imaging as well as rjim-rb-rxfpus and phase contrast imaging w as performed extracranial vasculature of the neck. 2-D and 3-D mhsf-sj-jlqywe imaging. 3-D reformatte d images and maximum intensity projection reformatted images were submitted for evaluation. IV Contrast: 10 cc Gadavist FINDINGS: RIGHT CAROTID SYSTEM: The common carotid artery is patent. There is 63% stenosis of the right interna l carotid artery just past the origin. Remainder of its course is patent. LEFT CAROTID SYSTEM: The common carotid artery is patent. The carotid bifurcations that she no evide nce for hemodynamically significant stenosis. The internal carotid arteries patent. The origins of the great vessels and vertebral arteries appear unremarkable. Vertebral arteries are c odominant IMPRESSIONS: 1. 63% stenosis of the right carotid bifurcation. 2. No significant stenosis of the left carotid bifurcation. 3. The carotid and vertebral arteries are patent. 4. No evidence aneurysm. [facility], , 05/06/2024 12:00 AM
[2024-05-06 07:35] LABS: African American GFR (CKD) 40 (>60 ml/min/1.73 sqM); Anion Gap 3 mmol/L; Blood Urea Nitrogen 23 mg/dL (9-20); Calcium 8.5 mg/dL (8.4-10.2); Carbon Dioxide 33 mmol/L (22-30); Chloride 104 mmol/L (98-107); Glucose 108 mg/dL (74-99); Magnesium 1.7 mg/dL (1.6-2.3); Non-African American GFR(CKD) 35 (>60 ml/min/1.73 sqM); Sodium 140 mmol/L (137-145)
--- NOTE | 2024-05-06 08:35 | P.PN ---
Subjective Progress Note Date: 05/05/24 Patient was seen for a follow-up. Patient is laying in the bed. Patient states that he had 1 episode at 5 to 6 PM of transient left arm weakness. No new concerns. Otherwise he has been doing well. Objective - Vital Signs Vital signs: Vital Signs Temp 97.3 F L 05/05/24 11:59 Pulse 72 05/05/24 12:05 Resp 18 05/05/24 11:59 BP 158/86 05/05/24 11:59 Pulse Ox 99 05/05/24 11:59 FiO2 Intake & Output 05/04/24 05/05/24 05/05/24 18:59 06:59 18:59 Intake Total 729 50 0415 Balance 030 21 5050 Weight 102.6 kg Intake: IV 10 Invasive Line 1 10 Oral 440 1260 Other: Voiding Method Toilet # Voids 2 2 - Exam The status, speech and language functions are normal. Visual pulliam are full, face is symmetric and tongue protrudes in midline. On muscle strength testing there is no pronator drift and the strength is normal in arms and legs. He is slightly tremulous for gsacuj-hz-zcse testing on the left, but not on the right. Sensory to touch is equal with no neglect. - Labs CBC & Chem 7: 05/05/24 06:14 05/06/24 06:48 Labs: Abnormal Lab Results - Last 24 Hours (Table) 05/05/24 05/05/24 Range/Units 06:14 06:14 RBC 3.73 L (4.30-5.90) m/uL Hgb 10.8 L (13.0-17.5) gm/dL Hct 33.5 L (39.0-53.0) % Chloride 112 H (98-107) mmol/L Carbon Dioxide 19 L (22-30) mmol/L BUN 26 H (9-20) mg/dL Creatinine 1.97 H (0.66-1.25) mg/dL Assessment and Plan Assessment: * Stroke/recurrent TIA manifesting with recurrent left arm weakness. Patient had 1 episode of transient left perioral numbness (about a week ago). His symptoms have improved, and current NIH stroke scale is 1. MRI confirmed scattered foci of acute/subacute CVA involving the right frontal/parietal region, somewhat in the watershed territory between the right MCA/JERED. * Symptomatic right ICA stenosis. * Hypertension * Diabetes * Moderate renal insufficiency * Hypomagnesemia Plan: * Patient was not a candidate for tPA because he came outside the window for tPA. * MRI of the brain without contrast, revealed scattered foci of acute/subacute CVA involving the right frontal/parietal region. Nonspecific white matter changes, likely secondary to small vessel ischemic disease. I personally reviewed MRI, agree with the findings. There is evidence of CVA involving the watershed territory between the right MCA/CVA. * 2-D echo revealed normal left ventricular size, wall thickness with no obvious regional wall motion abnormalities. LVEF 55 to 60%. Normal left and right atrial size. Negative agitated saline bubble study for mkjab-vq-rdiz shunt. No valvular dysfunction. * Carotid Doppler, revealed 50 to 69% stenosis of the right carotid bifurcation by peak systolic velocity and ratio. Less than 50% stenosis of the left carotid bifurcation. Antegrade flow in both vertebral arteries. * Appreciate vascular surgical consultation. * MRA of the neck revealed 63% stenosis of the right carotid bifurcation. No significant stenosis of the left carotid bifurcation. The carotid and vertebral arteries are patent. No evidence of aneurysm. I personally reviewed MRI, and there is there is severe stenosis right ICA. * Patient probably will benefit from carotid revascularization surgery in this admission. * Fasting a.m. lipid panel cholesterol 104, LDL 21, HDL 45 and triglycerides 190. Continue Lipitor 40 mg. * Hemoglobin A1c 5.7 * Permissive hypertension for next 24-48 hours * Patient was taking aspirin 81 mg daily prior to arrival. Patient started on Plavix 75 mg daily. * Neuro checks every 2 hours * Telemetry monitoring rule out any arrhythmia * PT, OT, speech therapy * DVT prophylaxis: Heparin 5000 units subcu every 12 hours
[2024-05-06] MEDS: MAGNESIUM SULFATE-D5W PMX 1 GM in DEXTROSE/WATER 1 100ML.BAG IVPB SCH (09:05)
--- NOTE | 2024-05-06 11:10 | P.PN ---
Subjective HISTORY OF PRESENT ILLNESS: This is a 74-year-old with a past medical history significant for coronary artery disease with chronic total occlusion of the circumflex, COPD, chronic kidney disease, hypertension, hyperlipidemia, and former nicotine dependence. Patient follows in the office with Dr. Ac. We have been asked to see the patient in consultation for cardiac clearance. Patient examined at the bedside. Patient initially presented to the hospital with generalized weakness, along with left-sided numbness and tingling. Patient was found to have acute/subacute stroke. Patient also found to have right internal carotid artery stenosis. He has been followed by vascular surgery with tentative plans for TCAR versus carotid endarterectomy. Patient currently denies any chest pain or pressure. He denies any shortness of breath. Patient denies any episodes of syncope. Patient states he has been somewhat active at home prior to coming to the hospital. He reports he can go up 1 flight of stairs without shortness of breath or chest pain. Patient reports he is a former cigarette smoker and quit smoking about 5 or 6 years ago. DIAGNOSTICS: - EKG reveals sinus mechanism with no signs of acute ischemia - Chest xray negative for acute process - Laboratory data: WBC 5.9. Hemoglobin 10.8. Platelet count 243. Sodium 138. Potassium 4.4. BUN 26. Creatinine 1.97. Troponin negative x 1. Magnesium 1.6. - Current home cardiac medications include Lipitor 40 mg at night, metoprolol succinate 25 mg daily, Jardiance 10 mg daily - Most recent echocardiogram obtained in May 2024 revealed ejection fraction 55 to 60%, no obvious regional wall motion abnormalities, negative bubble study, trace mitral regurgitation, mild to moderate pulmonic regurgitation, trace tricuspid regurgitation - Cardiac catheterization history: October 2022 revealing chronic occlusion of the distal circumflex coronary artery without significant obstructive CAD involving the rest of the coronary arteries. 05/06/2024 Patient examined this morning at the bedside. Patient denies chest pain or pressure. He denies shortness of breath. Vital signs are stable. Telemetry reveals sinus mechanism. PHYSICAL EXAM: VITAL SIGNS: Reviewed. GENERAL: Well-developed in no acute distress. HEENT: Head is normocephalic. Pupils are equal, round. Sclerae anicteric. Mucous membranes of the mouth are moist. Neck supple. No JVD or thyromegaly LUNGS: Respirations even and unlabored. Lungs essentially clear to auscultation bilaterally. HEART: Regular rate and rhythm. S1 and S2 heard. ABDOMEN: Soft. Nondistended. Nontender. EXTREMITIES: Normal range of motion. No clubbing or cyanosis. Peripheral pulses intact. No lower extremity edema NEUROLOGIC: Awake and alert. Oriented x 3. ASSESSMENT: Perioperative evaluation Symptomatic right internal carotid artery stenosis Acute/subacute stroke involving right frontal/parietal region History of COPD Chronic hypoxic respiratory failure on home oxygen Coronary artery disease with chronic total occlusion of the distal circumflex, per cath 10/2022 Chronic kidney disease Hypertension Hyperlipidemia History of Crohn's disease Former nicotine dependence PLAN: 2D echo obtained and reviewed Continue current cardiac medications Continue telemetry monitoring Patient without complaints of angina and is clinically not in congestive heart failure. Patient is currently optimized for surgical intervention. There are no absolute contraindications for patient to proceed with vascular surgery from a cardiac standpoint Further recommendations pending patient course Nurse practitioner note has been reviewed by physician. Signing provider agrees with the documented findings, assessment, and plan of care documented by FILM EXAMINER as a scribe. Objective - Vital Signs Vital signs: Vital Signs Temp 97.9 F 05/06/24 07:34 Pulse 72 05/06/24 08:01 Resp 16 05/06/24 07:34 BP 159/88 05/06/24 07:34 Pulse Ox 98 05/06/24 07:34 FiO2 Intake & Output 05/05/24 05/06/24 05/06/24 18:59 06:59 18:59 Intake Total 1800 540 120 Output Total 0 Balance 1800 540 120 Weight 102.5 kg Intake: Oral 1800 540 120 Output: Gastric Drainage 0 Urine 0 Stool 0 Urine/Stool Mix 0 Emesis 0 Oral Regurgitation 0 Other 0 Other: Voiding Method Toilet # Voids 3 1 0 # Bowel Movements 0 - Labs CBC & Chem 7: 05/05/24 06:14 05/06/24 06:48 Labs: Abnormal Lab Results - Last 24 Hours (Table) 05/06/24 Range/Units 06:48 Carbon Dioxide 33 H (22-30) mmol/L BUN 23 H (9-20) mg/dL Creatinine 1.85 H (0.66-1.25) mg/dL Glucose 108 H (74-99) mg/dL
--- NOTE | 2024-05-06 11:11 | P.PN ---
Subjective Progress Note Date: 05/06/24 Principal diagnosis: Carotid stenosis Patient is seen and examined today as a follow-up. States that he did have an episode today of his left arm and hand feeling numb and tingling after he had breakfast. He denies any other focal deficits. He underwent MRA of the neck yesterday reporting 63% stenosis of the right carotid bifurcation no significant stenosis of the left carotid bifurcation with patent carotid and vertebral arteries and no evidence of aneurysm. Patient was seen by cardiology and reported is medically optimized for surgical intervention. Objective - Vital Signs Vital signs: Vital Signs Temp 97.9 F 05/06/24 07:34 Pulse 72 05/06/24 08:01 Resp 16 05/06/24 07:34 BP 159/88 05/06/24 07:34 Pulse Ox 98 05/06/24 07:34 FiO2 Intake & Output 05/05/24 05/06/24 05/06/24 18:59 06:59 18:59 Intake Total 1800 540 Balance 1800 540 Weight 102.5 kg Intake: Oral 1800 540 Other: Voiding Method Toilet # Voids 3 1 - Exam General appearance: The patient is alert, oriented, appears in no acute di stress. HET: Head is normocephalic and atraumatic. Pupils are equal and reactive. Neck: Supple. Heart: Regular. Lungs: Equal expansion, normal respiratory effort. Abdomen: Soft, nondistended. Extremities: Normal skin color and turgor. Neurological: No focal deficits. Strength and sensation are grossly intact. - Labs CBC & Chem 7: 05/05/24 06:14 05/06/24 06:48 Labs: Abnormal Lab Results - Last 24 Hours (Table) 05/06/24 Range/Units 06:48 Carbon Dioxide 33 H (22-30) mmol/L BUN 23 H (9-20) mg/dL Creatinine 1.85 H (0.66-1.25) mg/dL Glucose 108 H (74-99) mg/dL Assessment and Plan Assessment: 1. Symptomatic right internal carotid artery stenosis 2. Acute/subacute stroke involving right frontal/parietal region 3. COPD oxygen dependent 4. Coronary artery disease 5. Hypomagnesemia 6. Crohn's disease 7. Former smoker Plan: 1. Patient would benefit from carotid surgical intervention. Tentative plan is for transcarotid artery revascularization on 05/10/2024 2. MRA neck ordered and reviewed 3. Continue aspirin, Plavix and atorvastatin 4. Patient seen by cardiology and optimized for surgical intervention. 5. Continue with recommendations from neurology 6. Continue with recommendations from nephrology 7. PT/OT/ST on consult 8. Rest of medical management per primary medical team Thank you for this consultation, we will continue to follow. The impression and plan of care has been dictated as directed. Dr. Mena I performed a history and examination of this patient, discussed the same with the dictator. I agree with the dictator's note ,documented as a scribe. Any additional findings or plans will be noted.
[2024-05-06] MEDS: MAGNESIUM OXIDE 400 MG TAB PO SCH (12:51)
--- NOTE | 2024-05-06 13:46 | P.PN ---
Subjective Progress Note Date: 05/06/24 Patient is a 74-year-old male with a past medical history of Crohn's disease status post bowel resection, COPD on 2 L nasal cannula at home, CKD stage III, hypertension and hypomagnesemia who presents to the ED with left upper extremity numbness intermittently for 3 days. Patient also had 1 brief episode of numbness around his lip. Patient gets magnesium transfusions by his optometric assistant twice a week. Patient states that last transfusion was 4 days ago. Patient states that when his magnesium is low he usually feels generalized weakness but has never had numbness. Patient states that the numbness and weakness gets worse with exertion and gets better with rest. Patient does have a history of smoking and he quit 6 years ago. Patient had a echocardiogram that showed normal LV function with no PFO. Patient is LDL is 21 so no need for high intensity statin. Patient's MRI did show right sided acute infarct. Patient's carotid Doppler showed 50 to 69% stenosis in the right carotid artery. Vascular surgery was consulted. MRA neck was done and showed 63% stenosis in the right carotid bifurcation. Vascular plans on doing carotid surgery on 05/10/2024. Cardiology cleared the patient for surgery. Patient seen this morning. He is denying any acute complaints. He is aware that he will be having surgery on 05/10/2024. Physical exam General: [Alert and oriented, well nourished, no acute distress]. Eye: [PERRL, EOMI, normal conjunctiva]. HENT: [Normocephalic, clear tympanic membranes, normal hearing, moist oral mucosa, no scleral icterus, no sinus tenderness]. Neck: [Supple, non-tender, no carotid bruits, no JVD, no lymphadenopathy]. Lungs: [Clear to auscultation and percussion, non-labored respiration]. Heart: [Normal rate, regular rhythm, no murmur, gallop or edema]. Abdomen: [Soft, non-tender, non-distended, normal bowel sounds, no masses]. Musculoskeletal: [Normal range of motion and strength, no tenderness or swelling]. Skin: [Skin is warm, dry and pink, no rashes or lesions]. Neurologic: [Awake, alert, and oriented X3, CN II-XII intact]. Psychiatric: [Cooperative, appropriate mood and affect]. Assessment and plan Acute CVA Left upper extremity weakness and numbness Patient is high risk for recurrence of stroke due to the right carotid artery stenosis Patient's MRA showed 63% stenosis in the right carotid bifurcation. I reviewed vascular surgery note and plan is for carotid surgery on 05/10/2024 I reviewed cardiology note who cleared the patient for surgery. Continue with aspirin 81 mg p.o. daily and Plavix 75 mg p.o. daily Neurology on board Continue with atorvastatin PO 40 mg at bedtime PT and OT recommend home No need for speech therapy as patient does not have any dysphagia. Hypomagnesemia Patient's magnesium this morning is 1.7. 4 g of magnesium sulfate ordered Trend magnesium daily Patient already established with nephrology and gets infusions twice a week Resume his magnesium supplement 400 mg daily History of Crohn's disease Status post resection Stable Continue with balsalazide and cholestyramine COPD on 2 L home O2 Stable Continue with CKD stage III with metabolic acidosis Creatinine baseline is around 2.0 Creatinine this morning is stable at 1.85 I discussed with nephrology that the bicarb this morning is 33 and I will be discontinuing continuing the bicarb drip. Hypertension Resume home meds DVT prophylaxis: Subcu heparin Objective - Vital Signs Vital signs: Vital Signs Temp 98 F 05/06/24 11:26 Pulse 72 05/06/24 11:33 Resp 16 05/06/24 11:26 BP 154/87 05/06/24 11:26 Pulse Ox 94 L 05/06/24 11:26 FiO2 Intake & Output 05/05/24 05/06/24 05/06/24 18:59 06:59 18:59 Intake Total 1800 540 660 Output Total 0 Balance 1800 540 660 Weight 102.5 kg Intake: Oral 1800 540 660 Output: Gastric Drainage 0 Urine 0 Stool 0 Urine/Stool Mix 0 Emesis 0 Oral Regurgitation 0 Other 0 Other: Voiding Method Toilet # Voids 3 1 0 # Bowel Movements 0 - Labs CBC & Chem 7: 05/05/24 06:14 05/06/24 06:48 Labs: Abnormal Lab Results - Last 24 Hours (Table) 05/06/24 Range/Units 06:48 Carbon Dioxide 33 H (22-30) mmol/L BUN 23 H (9-20) mg/dL Creatinine 1.85 H (0.66-1.25) mg/dL Glucose 108 H (74-99) mg/dL
--- NOTE | 2024-05-06 15:32 | P.PN ---
Subjective patient is seen for follow-up for acute kidney injury and chronic kidney disease. Serum magnesium at 1.7 today. Serum creatinine at 1.8 No significant complaints. MRI of the head shows scattered foci of acute/subacute CVA in the right frontoparietal region Objective - Vital Signs Vital signs: Vital Signs Temp 98 F 05/06/24 11:26 Pulse 72 05/06/24 11:33 Resp 16 05/06/24 11:26 BP 154/87 05/06/24 11:26 Pulse Ox 94 L 05/06/24 11:26 FiO2 Intake & Output 05/05/24 05/06/24 05/06/24 18:59 06:59 18:59 Intake Total 1800 540 660 Output Total 0 Balance 1800 540 660 Weight 102.5 kg Intake: Oral 1800 540 660 Output: Gastric Drainage 0 Urine 0 Stool 0 Urine/Stool Mix 0 Emesis 0 Oral Regurgitation 0 Other 0 Other: Voiding Method Toilet # Voids 3 1 0 # Bowel Movements 0 - Exam Patient is awake comfortable no acute distress. 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 No significant motor deficit noted. - Labs CBC & Chem 7: 05/05/24 06:14 05/06/24 06:48 Labs: Abnormal Lab Results - Last 24 Hours (Table) 05/06/24 Range/Units 06:48 Carbon Dioxide 33 H (22-30) mmol/L BUN 23 H (9-20) mg/dL Creatinine 1.85 H (0.66-1.25) mg/dL Glucose 108 H (74-99) mg/dL Assessment and Plan Assessment: 1. Acute kidney injury most likely associated with volume depletion. Check UA. 2. Chronic kidney disease stage IIIb with baseline creatinine around 1.8 to 2 mg/dL. Etiology is IgA nephropathy. Status post treatment with steroids about 2 years ago with resolution of proteinuria 3. History of Crohn's disease 4. Gastroesophageal reflux disease maintained on proton pump inhibitors 5. Nongap metabolic acidosis associated with acute kidney injury. No significant diarrhea reported. 6. Chronic hypomagnesemia, maintained on supplementation as outpatient. 7. Acute/subacute CVA involving the right frontoparietal region Plan: Agree with discontinuation of IV bicarb Reordered UA Replace magnesium Repeat labs in a.m. Patient is advised to consider holding proton pump inhibitors and use Pepcid. P rotonix can exacerbate the hypomagnesemia. Continue with Jardiance for now. Add amiloride as outpatient for hypomagnesemia.
[2024-05-07 07:12] LABS: HCT 32.8 % (39.0-53.0); HGB 10.9 gm/dL (13.0-17.5); MCH 29.5 pg (25.0-35.0); MCHC 33.2 g/dL (31.0-37.0); MCV 88.7 fL (80.0-100.0); Platelet Count 227 k/uL (150-450); RBC 3.69 m/uL (4.30-5.90); RDW 14.7 % (11.5-15.5); WBC 8.4 k/uL (3.8-10.6)
[2024-05-07 07:23] LABS: African American GFR (CKD) 49 (>60 ml/min/1.73 sqM); Anion Gap 2 mmol/L; Blood Urea Nitrogen 18 mg/dL (9-20); Calcium 8.4 mg/dL (8.4-10.2); Carbon Dioxide 29 mmol/L (22-30); Chloride 105 mmol/L (98-107); Glucose 100 mg/dL (74-99); Magnesium 1.9 mg/dL (1.6-2.3); Non-African American GFR(CKD) 42 (>60 ml/min/1.73 sqM); Potassium 4.3 mmol/L (3.5-5.1); Sodium 136 mmol/L (137-145)
--- NOTE | 2024-05-07 08:57 | P.PN ---
Subjective Progress Note Date: 05/07/24 Principal diagnosis: carotid stenosis, CVA patient seen and examined. No new events. Objective - Vital Signs Vital signs: Vital Signs Temp 98.2 F 05/06/24 20:00 Pulse 64 05/07/24 07:59 Resp 18 05/07/24 07:59 BP 166/87 05/07/24 07:59 Pulse Ox 98 05/07/24 07:59 FiO2 Intake & Output 05/06/24 05/07/24 05/07/24 18:59 06:59 18:59 Intake Total 1580 0 Output Total 0 Balance 1580 0 Weight 103.7 kg Intake: Oral 1580 0 Output: Gastric Drainage 0 Urine 0 Stool 0 Urine/Stool Mix 0 Emesis 0 Oral Regurgitation 0 Other 0 Other: Voiding Method Toilet # Voids 4 1 # Bowel Movements 0 - Constitutional General appearance: Present: average body habitus, cooperative - EENT Eyes: Present: PERRLA - Cardiovascular Rhythm: regular - Psychiatric Psychiatric: Present: A&O x's 3, appropriate affect - Additional findings Additional findings: sensation and motor intact. No deficits. - Labs CBC & Chem 7: 05/07/24 06:43 05/07/24 06:43 Labs: Abnormal Lab Results - Last 24 Hours (Table) 05/07/24 05/07/24 Range/Units 06:43 06:43 RBC 3.69 L (4.30-5.90) m/uL Hgb 10.9 L (13.0-17.5) gm/dL Hct 32.8 L (39.0-53.0) % Sodium 136 L (137-145) mmol/L Creatinine 1.58 H (0.66-1.25) mg/dL Glucose 100 H (74-99) mg/dL Assessment and Plan Assessment: Symptomatic right internal carotid artery stenosis Acute/subacute stroke COPD oxygen dependent CAD Plan: Plan for TCAR Thursday
[2024-05-07 09:47] LABS: Appearance,Urine Clear (Clear); Bilirubin,Urine Negative (Negative); Blood,Urine Trace (Negative); Color,Urine Colorless; Glucose,Urine (UA) Negative (Negative); Ketones,Urine Negative (Negative); Leukocyte Esterase,Urine Negative (Negative); Mucus,Urine Rare /hpf; Nitrite,Urine Negative (Negative); PH, Urine 6.5 (5.0-8.0); Protein,Urine Negative (Negative); RBC,Urine 2 /hpf (0-5); Specific Gravity,Urine 1.011 (1.001-1.035); Urobilinogen,Urine <2.0 mg/dL (<2.0); WBC,Urine 2 /hpf (0-5)
--- NOTE | 2024-05-07 11:48 | P.PN ---
Subjective patient is seen for follow-up for acute kidney injury and chronic kidney disease. Serum magnesium at 1.9 today. Serum creatinine at 1.58 No significant complaints. MRI of the head shows scattered foci of acute/subacute CVA in the right frontoparietal region Objective - Vital Signs Vital signs: Vital Signs Temp 98.2 F 05/06/24 20:00 Pulse 62 05/07/24 11:33 Resp 18 05/07/24 08:00 BP 166/87 05/07/24 07:59 Pulse Ox 98 05/07/24 07:59 FiO2 Intake & Output 05/06/24 05/07/24 05/07/24 18:59 06:59 18:59 Intake Total 1580 0 Output Total 0 Balance 1580 0 Weight 103.7 kg Intake: Oral 1580 0 Output: Gastric Drainage 0 Urine 0 Stool 0 Urine/Stool Mix 0 Emesis 0 Oral Regurgitation 0 Other 0 Other: Voiding Method Toilet # Voids 4 1 # Bowel Movements 0 - Exam Patient is awake comfortable no acute distress. Examination of the heart S1 and S2 Examination of the lungs bilateral breath sounds are heard Abdomen is soft nontender Examination of lower extremities shows no significant edema COMMODITY ANALYST exam grossly intact. No significant motor deficit noted. - Labs CBC & Chem 7: 05/07/24 06:43 05/07/24 06:43 Labs: Abnormal Lab Results - Last 24 Hours (Table) 05/07/24 05/07/24 05/07/24 Range/Units 06:43 06:43 09:00 RBC 3.69 L (4.30-5.90) m/uL Hgb 10.9 L (13.0-17.5) gm/dL Hct 32.8 L (39.0-53.0) % Sodium 136 L (137-145) mmol/L Creatinine 1.58 H (0.66-1.25) mg/dL Glucose 100 H (74-99) mg/dL Urine Blood Trace H (Negative) Urine Mucus Rare H (None) /hpf Assessment and Plan Assessment: 1. Acute kidney injury most likely associated with volume depletion. UA is benign. 2. Chronic kidney disease stage IIIb with baseline creatinine around 1.8 to 2 mg/dL. Etiology is IgA nephropathy. Status post treatment with steroids about 2 years ago with resolution of proteinuria 3. History of Crohn's disease 4. Gastroesophageal reflux disease maintained on proton pump inhibitors 5. Nongap metabolic acidosis associated with acute kidney injury. No significant diarrhea reported. 6. Chronic hypomagnesemia, maintained on supplementation as outpatient. 7. Acute/subacute CVA involving the right frontoparietal region Plan: continue to hold proton pump inhibitors due to hypomagnesemia Continue with Jardiance for now. Add amiloride as outpatient for hypomagnesemia.
--- NOTE | 2024-05-07 13:04 | P.PN ---
Subjective Progress Note Date: 05/06/24 Patient was seen for a follow-up. Patient is laying in the bed. Patient states that he had 1 episode this morning after breakfast at 8:30 AM, in which he developed numbness of the left arm, that lasted for about 20 to 30 minutes and then went away. Now all symptoms have resolved. Objective - Vital Signs Vital signs: Vital Signs Temp 98 F 05/06/24 11:26 Pulse 72 05/06/24 11:33 Resp 16 05/06/24 11:26 BP 154/87 05/06/24 11:26 Pulse Ox 94 L 05/06/24 11:26 FiO2 Intake & Output 05/05/24 05/06/24 05/06/24 18:59 06:59 18:59 Intake Total 1800 540 660 Output Total 0 Balance 1800 540 660 Weight 102.5 kg Intake: Oral 1800 540 660 Output: Gastric Drainage 0 Urine 0 Stool 0 Urine/Stool Mix 0 Emesis 0 Oral Regurgitation 0 Other 0 Other: Voiding Method Toilet # Voids 3 1 0 # Bowel Movements 0 - Exam The status, speech and language functions are normal. Visual pulliam are full, face is symmetric and tongue protrudes in midline. On muscle strength testing there is no pronator drift and the strength is normal in arms and legs. He is slightly tremulous for [id number] testing on the left, but not on the right. Sensory to touch is equal with no neglect. - Labs CBC & Chem 7: 05/07/24 06:43 05/07/24 06:43 Labs: Abnormal Lab Results - Last 24 Hours (Table) 05/06/24 Range/Units 06:48 Carbon Dioxide 33 H (22-30) mmol/L BUN 23 H (9-20) mg/dL Creatinine 1.85 H (0.66-1.25) mg/dL Glucose 108 H (74-99) mg/dL Assessment and Plan Assessment: * Stroke/recurrent TIA manifesting with recurrent left arm weakness. Patient had 1 episode of transient left perioral numbness (about a week ago). His symptoms have improved, and current NIH stroke scale is 1. MRI confirmed scattered foci of acute/subacute CVA involving the right frontal/parietal region, somewhat in the watershed territory between the right MCA/JERED. * Patient had 1 episode of TIA after breakfast today at 8:30 AM with transient left arm numbness that lasted for 20 to 30 minutes and now resolved. Current NIH stroke score is 0. * Symptomatic right ICA stenosis. * Hypertension * Diabetes * Moderate renal insufficiency * Hypomagnesemia Plan: * Patient is having recurrent episodes of left arm numbness, weakness, probable TIAs. Patient to undergo carotid revascularization surgery this hospitalization. * Vascular surgery following. * Patient was not a candidate for tPA because he came outside the window for tPA. * MRI of the brain without contrast, revealed scattered foci of acute/subacute CVA involving the right frontal/parietal region. Nonspecific white matter changes, likely secondary to small vessel ischemic disease. I personally reviewed MRI, agree with the findings. There is evidence of CVA involving the watershed territory between the right MCA/CVA. * 2-D echo revealed normal left ventricular size, wall thickness with no obvious regional wall motion abnormalities. LVEF 55 to 60%. Normal left and right atrial size. Negative agitated saline bubble study for [id number] shunt. No valvular dysfunction. * Carotid Doppler, revealed 50 to 69% stenosis of the right carotid bifurcation by peak systolic velocity and ratio. Less than 50% stenosis of the left carotid bifurcation. Antegrade flow in both vertebral arteries. * Appreciate vascular surgical consultation. * MRA of the neck revealed 63% stenosis of the right carotid bifurcation. No significant stenosis of the left carotid bifurcation. The carotid and vertebr al arteries are patent. No evidence of aneurysm. I personally reviewed MRI, and there is there is severe stenosis right ICA. * Fasting a.m. lipid panel cholesterol 104, LDL 21, HDL 45 and triglycerides 190. Continue Lipitor 40 mg. * Hemoglobin A1c 5.7 * Permissive hypertension for next 24-48 hours * Patient was taking aspirin 81 mg daily prior to arrival. Patient started on Plavix 75 mg daily. * Neuro checks every 2 hours * Telemetry monitoring rule out any arrhythmia * Nephrology following for hypomagnesemia, and chronic renal insufficiency. * PT, OT, speech therapy * DVT prophylaxis: Heparin 5000 units subcu every 12 hours
--- NOTE | 2024-05-07 13:38 | P.PN ---
Subjective Progress Note Date: 05/07/24 HISTORY OF PRESENT ILLNESS: This is a 74-year-old with a past medical history significant for coronary artery disease with chronic total occlusion of the circumflex, COPD, chronic kidney disease, hypertension, hyperlipidemia, and former nicotine dependence. Patient follows in the office with Dr. Ac. We have been asked to see the patient in consultation for cardiac clearance. Patient examined at the bedside. Patient initially presented to the hospital with generalized weakness, along with left-sided numbness and tingling. Patient was found to have acute/subacute stroke. Patient also found to have right internal carotid artery stenosis. He has been followed by vascular surgery with tentative plans for TCAR versus carotid endarterectomy. Patient currently denies any chest pain or pressure. He denies any shortness of breath. Patient denies any episodes of syncope. Patient states he has been somewhat active at home prior to coming to the hospital. He reports he can go up 1 flight of stairs without shortness of breath or chest pain. Patient reports he is a former cigarette smoker and quit smoking about 5 or 6 years ago. DIAGNOSTICS: - EKG reveals sinus mechanism with no signs of acute ischemia - Chest xray negative for acute process - Laboratory data: WBC 5.9. Hemoglobin 10.8. Platelet count 243. Sodium 138. Potassium 4.4. BUN 26. Creatinine 1.97. Troponin negative x 1. Magnesium 1.6. - Current home cardiac medications include Lipitor 40 mg at night, metoprolol s uccinate 25 mg daily, Jardiance 10 mg daily - Most recent echocardiogram obtained in May 2024 revealed ejection fraction 55 to 60%, no obvious regional wall motion abnormalities, negative bubble study, trace mitral regurgitation, mild to moderate pulmonic regurgitation, trace tricuspid regurgitation - Cardiac catheterization history: October 2022 revealing chronic occlusion of the distal circumflex coronary artery without significant obstructive CAD involving the rest of the coronary arteries. 05/06/2024 Patient examined this morning at the bedside. Patient denies chest pain or pressure. He denies shortness of breath. Vital signs are stable. Telemetry reveals sinus mechanism. 05/07/2024 Patient is doing well. He denies any chest pain or pressure. No shortness of breath. Does have some dizziness and lightheadedness and left-sided weakness. Creat 1.58, potassium 4.3, LDL 21. PHYSICAL EXAM: VITAL SIGNS: Reviewed. GENERAL: Well-developed in no acute distress. HEENT: Head is normocephalic. Pupils are equal, round. Sclerae anicteric. Mucous membranes of the mouth are moist. LUNGS: Respirations even and unlabored. Lungs essentially clear to auscultation bilaterally. HEART: Regular rate and rhythm. S1 and S2 heard. ABDOMEN: Soft. Nondistended. Nontender. EXTREMITIES: Normal range of motion. No clubbing or cyanosis. Peripheral pulses intact. No lower extremity edema NEUROLOGIC: Awake and alert. Oriented x 3. ASSESSMENT: Perioperative evaluation Symptomatic right internal carotid artery stenosis Acute/subacute stroke involving right frontal/parietal region History of COPD Chronic hypoxic respiratory failure on home oxygen Coronary artery disease with chronic total occlusion of the distal circumflex, per cath 10/2022 Chronic kidney disease Hypertension Hyperlipidemia History of Crohn's disease Former nicotine dependence PLAN: Awaiting TCAR today 05/09 with vascular surgery. Continue current cardiac medications Continue telemetry monitoring Patient without complaints of angina and is clinically not in congestive heart failure. Patient is currently optimized for surgical intervention. There are no absolute contraindications for patient to proceed with vascular surgery from a cardiac standpoint. Cardiology to sign off. Please call with any questions. Nurse practitioner note has been reviewed by physician. Signing provider agrees with the documented findings, assessment, and plan of care documented by ROAD TEST EXAMINER as a scribe. Objective - Vital Signs Vital signs: Vital Signs Temp 98.2 F 05/06/24 20:00 Pulse 64 05/07/24 07:59 Resp 18 05/07/24 08:00 BP 166/87 05/07/24 07:59 Pulse Ox 98 05/07/24 07:59 FiO2 Intake & Output 05/06/24 05/07/24 05/07/24 18:59 06:59 18:59 Intake Total 1580 0 Output Total 0 Balance 1580 0 Weight 103.7 kg Intake: Oral 1580 0 Output: Gastric Drainage 0 Urine 0 Stool 0 Urine/Stool Mix 0 Emesis 0 Oral Regurgitation 0 Other 0 Other: Voiding Method Toilet # Voids 4 1 # Bowel Movements 0 - Labs CBC & Chem 7: 05/07/24 06:43 05/07/24 06:43 Labs: Abnormal Lab Results - Last 24 Hours (Table) 05/07/24 05/07/24 05/07/24 Range/Units 06:43 06:43 09:00 RBC 3.69 L (4.30-5.90) m/uL Hgb 10.9 L (13.0-17.5) gm/dL Hct 32.8 L (39.0-53.0) % Sodium 136 L (137-145) mmol/L Creatinine 1.58 H (0.66-1.25) mg/dL Glucose 100 H (74-99) mg/dL Urine Blood Trace H (Negative) Urine Mucus Rare H (None) /hpf
--- NOTE | 2024-05-07 18:03 | P.PN ---
Subjective Progress Note Date: 05/07/24 Objective - Vital Signs Vital signs: Vital Signs Temp 98.0 F 05/07/24 12:00 Pulse 60 05/07/24 16:26 Resp 16 05/07/24 15:25 BP 185/85 05/07/24 15:25 Pulse Ox 97 05/07/24 15:25 FiO2 Intake & Output 05/06/24 05/07/24 05/07/24 18:59 06:59 18:59 Intake Total 1580 0 Output Total 0 Balance 1580 0 Weight 103.7 kg Intake: Oral 1580 0 Output: Gastric Drainage 0 Urine 0 Stool 0 Urine/Stool Mix 0 Emesis 0 Oral Regurgitation 0 Other 0 Other: Voiding Method Toilet # Voids 4 1 # Bowel Movements 0 - Labs CBC & Chem 7: 05/07/24 06:43 05/07/24 06:43 Labs: Abnormal Lab Results - Last 24 Hours (Table) 05/07/24 05/07/24 05/07/24 Range/Units 06:43 06:43 09:00 RBC 3.69 L (4.30-5.90) m/uL Hgb 10.9 L (13.0-17.5) gm/dL Hct 32.8 L (39.0-53.0) % Sodium 136 L (137-145) mmol/L Creatinine 1.58 H (0.66-1.25) mg/dL Glucose 100 H (74-99) mg/dL Urine Blood Trace H (Negative) Urine Mucus Rare H (None) /hpf Assessment and Plan (1) CVA (cerebral vascular accident) Narrative/Plan: Presented with 3 days of right upper extremity numbness. Patient with history of smoking echocardiogram showed normal LV fraction. Patient with a LDL of 21 so no hide intensity statin. MRI showed right sided acute infarct. Carotid Doppler showed 50 to 69% stenosis in the right carotid artery Current Visit: Yes Status: Acute Code(s): I63.9 - CEREBRAL INFARCTION, UNS PECIFIED SNOMED Code(s): 324038083 (2) Carotid stenosis, right Narrative/Plan: Appreciate vascular input plan. Plan for TCAR on 05/10 Current Visit: Yes Status: Acute Code(s): I65.21 - OCCLUSION AND STENOSIS OF RIGHT CAROTID ARTERY SNOMED Code(s): 768709384468636 (3) Hypomagnesemia Narrative/Plan: Monitor and replete Current Visit: Yes Status: Acute Code(s): E83.42 - HYPOMAGNESEMIA SNOMED Code(s): 256747185 Plan: Plan for TCAR on 05/10 Continue telemetry, cardiology signed off currently chest pain-free
[2024-05-07] MEDS: CALCIUM CARBONATE 500 MG CHEWABLE PO PRN (23:46)
--- NOTE | 2024-05-08 08:02 | P.PN ---
Subjective Progress Note Date: 05/07/24 Patient was seen for a follow-up. Patient was in the restroom. He came out, and was walking fairly stable, using the IV pole. Patient states he has been having transient tingling in the left arm, "once in a while". No other symptoms. Objective - Vital Signs Vital signs: Vital Signs Temp 98.0 F 05/07/24 12:00 Pulse 60 05/07/24 16:26 Resp 16 05/07/24 15:25 BP 185/85 05/07/24 15:25 Pulse Ox 97 05/07/24 15:25 FiO2 Intake & Output 05/07/24 05/07/24 05/08/24 06:59 18:59 06:59 Intake Total 0 120 Balance 0 120 Weight 103.7 kg Intake: Oral 0 120 Other: Voiding Method Toilet # Voids 1 - Exam The status, speech and language functions are normal. Visual pulliam are full, face is symmetric and tongue protrudes in midline. On muscle strength testing there is no pronator drift and the strength is normal in arms and legs. He is slightly tremulous for [id number]-orcz testing on the left, but not on the right. Sensory to touch is equal with no neglect. - Labs CBC & Chem 7: 05/07/24 06:43 05/07/24 06:43 Labs: Abnormal Lab Results - Last 24 Hours (Table) 05/07/24 05/07/24 05/07/24 Range/Units 06:43 06:43 09:00 RBC 3.69 L (4.30-5.90) m/uL Hgb 10.9 L (13.0-17.5) gm/dL Hct 32.8 L (39.0-53.0) % Sodium 136 L (137-145) mmol/L Creatinine 1.58 H (0.66-1.25) mg/dL Glucose 100 H (74-99) mg/dL Urine Blood Trace H (Negative) Urine Mucus Rare H (None) /hpf Assessment and Plan Assessment: * Stroke/recurrent TIA manifesting with recurrent left arm weakness. Patient had 1 episode of transient left perioral numbness (about a week ago). His symptoms have improved, and current NIH stroke scale is 1. MRI confirmed scattered foci of acute/subacute CVA involving the right frontal/parietal region, somewhat in the watershed territory between the right MCA/JERED. * Patient had 1 episode of TIA after breakfast today at 8:30 AM with transient left arm numbness that lasted for 20 to 30 minutes and now resolved. Current NIH stroke score is 0. * Symptomatic right ICA stenosis. * Hypertension * Diabetes * Moderate renal insufficiency * Hypomagnesemia Plan: * Patient is having recurrent episodes of left arm numbness, weakness, probable TIAs. Patient to undergo carotid revascularization surgery this hospitalization. * Vascular surgery following. Patient tentatively scheduled for TCAR on 05/09/2024 (as per vascular surgery note). * MRI of the brain without contrast, revealed scattered foci of acute/subacute CVA involving the right frontal/parietal region. Nonspecific white matter changes, likely secondary to small vessel ischemic disease. I personally reviewed MRI, agree with the findings. There is evidence of CVA involving the watershed territory between the right MCA/CVA. * 2-D echo revealed normal left ventricular size, wall thickness with no obvious regional wall motion abnormalities. LVEF 55 to 60%. Normal left and right atrial size. Negative agitated saline bubble study for [id number] shunt. No valvular dysfunction. * Carotid Doppler, revealed 50 to 69% stenosis of the right carotid bifurcation by peak systolic velocity and ratio. Less than 50% stenosis of the left carotid bifurcation. Antegrade flow in both vertebral arteries. * Appreciate vascular surgical consultation. * MRA of the neck revealed 63% stenosis of the right carotid bifurcation. No significant stenosis of the left carotid bifurcation. The carotid and vertebral arteries are patent. No evidence of aneurysm. I personally review ed MRI, and there is there is severe stenosis right ICA. * Fasting a.m. lipid panel cholesterol 104, LDL 21, HDL 45 and triglycerides 190. Continue Lipitor 40 mg. * Hemoglobin A1c 5.7 * Avoid hypotension. * Patient was taking aspirin 81 mg daily prior to arrival. Patient started on Plavix 75 mg daily. * Neuro checks every 2 hours * Telemetry monitoring rule out any arrhythmia * Nephrology following for hypomagnesemia, and chronic renal insufficiency. * PT, OT, speech therapy * DVT prophylaxis: Heparin 5000 units subcu every 12 hours
--- NOTE | 2024-05-08 11:21 | P.PN ---
Subjective patient is seen for follow-up for acute kidney injury and chronic kidney disease. Serum magnesium at 1.9 yesterday. Serum creatinine at 1.58 No significant complaints. MRI of the head shows scattered foci of acute/subacute CVA in the right frontop arietal region. Plans for carotid revascularization surgery this hospitalization. Objective - Vital Signs Vital signs: Vital Signs Temp 98.3 F 05/08/24 08:59 Pulse 76 05/08/24 09:44 Resp 17 05/08/24 08:59 BP 105/59 05/08/24 08:59 Pulse Ox 95 05/08/24 08:59 FiO2 Intake & Output 05/07/24 05/08/24 05/08/24 18:59 06:59 18:59 Intake Total 120 1320 118 Balance 120 1320 118 Weight 103.5 kg Intake: Oral 120 1320 118 Other: Voiding Method Toilet Toilet # Voids 2 # Bowel Movements 1 - Exam Patient is awake comfortable no acute distress. 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 No significant motor deficit noted. - Labs CBC & Chem 7: 05/07/24 06:43 05/07/24 06:43 Assessment and Plan Assessment: 1. Acute kidney injury most likely associated with volume depletion. UA is benign. 2. Chronic kidney disease stage IIIb with baseline creatinine around 1.8 to 2 mg/dL. Etiology is IgA nephropathy. Status post treatment with steroids about 2 years ago with resolution of proteinuria 3. History of Crohn's disease 4. Gastroesophageal reflux disease maintained on proton pump inhibitors 5. Nongap metabolic acidosis associated with acute kidney injury. No significant diarrhea reported. 6. Chronic hypomagnesemia, maintained on supplementation as outpatient. 7. Acute/subacute CVA involving the right frontoparietal region. Plans for carotid revascularization surgery this hospitalization. Plan: check labs today continue to hold proton pump inhibitors due to hypomagnesemia Continue with Jardiance for now. Add amiloride as outpatient for hypomagnesemia.
[2024-05-08 11:48] LABS: African American GFR (CKD) 46 (>60 ml/min/1.73 sqM); Anion Gap 5 mmol/L; Blood Urea Nitrogen 21 mg/dL (9-20); Calcium 8.8 mg/dL (8.4-10.2); Carbon Dioxide 28 mmol/L (22-30); Chloride 102 mmol/L (98-107); Glucose 93 mg/dL (74-99); Magnesium 1.4 mg/dL (1.6-2.3); Non-African American GFR(CKD) 40 (>60 ml/min/1.73 sqM); Potassium 4.7 mmol/L (3.5-5.1); Sodium 135 mmol/L (137-145)
[2024-05-08] MEDS: MAGNESIUM SULFATE-D5W PMX 1 GM in DEXTROSE/WATER 1 100ML.BAG IVPB SCH (17:14)
--- NOTE | 2024-05-08 18:38 | P.PN ---
Subjective Progress Note Date: 05/08/24 (delayed charting seen at 1145) Patient seen and examined at bedside. He complains of lower extremity pain and cramping. Denies any chest pain or shortness of breath, no nausea or vomiting. Vital signs reviewed General: Nontoxic, no distress, appears at stated age Cardiovascular: S1S2 reg, no murmur Lungs: CTA bilateral, no rhonchi, no rales, no accessory muscle use Abdominal: Soft, nontender to palpation, no guarding Ext: No gross muscle atrophy, no edema b/l lower extremities, no contractures Neuro: CN II-XI grossly intact, no focal neuro deficits Psych: Alert, oriented, appropriate affect Assessment/Plan: Acute CVA Right Carotid artery stenosis -Per vascular surgery note plan is for carotid surgery on 05/10/2024 -aspirin 81 mg p.o. daily and Plavix 75 mg p.o. daily, Lipitor 40 mg PO HS -Neuronote reviewed continue aspirin and Plavix. Patient will follow up. -PT and OT recommend home Hypomagnesemia -Magnesium sulfate 4 g IV piggyback -Repeat BMP in a.m. - established with nephrology and gets infusions twice a week History of Crohn's disease Status post resection - balsalazide and cholestyramine CKD stage III with metabolic acidosis -Creatinine baseline is around 2.0 - nephrology note reviewed: hold PPI, add amiloride - repeat BMP in AM Hypertension COPD on 2 L home O2 Imaging: None new Data Review: Reviewed from today include basic metabolic profile and magnesium which were remarkable for BUN of 21 creatinine 1.66, and magnesium 1.4 DVT prophylaxis: Heparin Anticipated discharge date: After TCAR performed Anticipated discharge place: Home This dictation was prepared using [employer] voice recognition software. Though every attempt is made to correct errors during dictation some may still exist. Objective - Vital Signs Vital signs: Vital Signs Temp 97.4 F L 05/08/24 15:30 Pulse 63 05/08/24 15:30 Resp 18 05/08/24 15:30 BP 166/90 05/08/24 15:30 Pulse Ox 98 05/08/24 15:30 FiO2 Intake & Output 05/07/24 05/08/24 05/08/24 18:59 06:59 18:59 Intake Total 120 1320 354 Balance 120 1320 354 Weight 103.5 kg Intake: Oral 120 1320 354 Other: Voiding Method Toilet Toilet # Voids 2 # Bowel Movements 2 - Labs CBC & Chem 7: 05/07/24 06:43 05/08/24 11:02 Labs: Abnormal Lab Results - Last 24 Hours (Table) 05/08/24 Range/Units 11:02 Sodium 135 L (137-145) mmol/L BUN 21 H (9-20) mg/dL Creatinine 1.66 H (0.66-1.25) mg/dL Magnesium 1.4 L (1.6-2.3) mg/dL
--- NOTE | 2024-05-09 01:17 | P.PN ---
Subjective Progress Note Date: 05/08/24 Patient was seen for a follow-up. Denies any focal symptoms in the last 24 hours. Patient is laying comfortably in the bed. Objective - Vital Signs Vital signs: Vital Signs Temp 97.7 F 05/08/24 23:40 Pulse 80 05/08/24 23:40 Resp 18 05/08/24 23:40 BP 152/79 05/08/24 23:40 Pulse Ox 97 05/08/24 23:40 FiO2 Intake & Output 05/08/24 05/08/24 05/09/24 06:59 18:59 06:59 Intake Total 1320 354 Balance 1320 354 Weight 103.5 kg Intake: Oral 1320 354 Other: Voiding Method Toilet Toilet Toilet # Voids 2 # Bowel Movements 2 - Exam The status, speech and language functions are normal. Visual pulliam are full, face is symmetric and tongue protrudes in midline. On muscle strength testing there is no pronator drift and the strength is normal in arms and legs. He is slightly tremulous for pmtgle-ud-oupw testing on the left, but not on the right. Sensory to touch is equal with no neglect. - Labs CBC & Chem 7: 05/07/24 06:43 05/08/24 11:02 Labs: Abnormal Lab Results - Last 24 Hours (Table) 05/08/24 Range/Units 11:02 Sodium 135 L (137-145) mmol/L BUN 21 H (9-20) mg/dL Creatinine 1.66 H (0.66-1.25) mg/dL Magnesium 1.4 L (1.6-2.3) mg/dL Assessment and Plan Assessment: * Stroke/recurrent TIA manifesting with recurrent left arm weakness. Patient had 1 episode of transient left perioral numbness (about a week ago). His symptoms have improved, and current NIH stroke scale is 1. MRI confirmed scattered foci of acute/subacute CVA involving the right frontal/parietal region, somewhat in the watershed territory between the right MCA/JERED. * Patient had 1 episode of TIA after breakfast today at 8:30 AM with transient left arm numbness that lasted for 20 to 30 minutes and now resolved. Current NIH stroke score is 0. * Symptomatic right ICA stenosis. * Hypertension * Diabetes * Moderate renal insufficiency * Hypomagnesemia Plan: * Patient is having recurrent episodes of left arm numbness, weakness, probable TIAs. Patient to undergo carotid revascularization surgery this hospitalization. * Vascular surgery following. Patient tentatively scheduled for TCAR on 05/10/2024. * MRI of the brain without contrast, revealed scattered foci of acute/subacute CVA involving the right frontal/parietal region. Nonspecific white matter c hanges, likely secondary to small vessel ischemic disease. I personally reviewed MRI, agree with the findings. There is evidence of CVA involving the watershed territory between the right MCA/CVA. * 2-D echo revealed normal left ventricular size, wall thickness with no obvious regional wall motion abnormalities. LVEF 55 to 60%. Normal left and right atrial size. Negative agitated saline bubble study for [id number]-[id number] shunt. No valvular dysfunction. * Carotid Doppler, revealed 50 to 69% stenosis of the right carotid bifurcation by peak systolic velocity and ratio. Less than 50% stenosis of the left carotid bifurcation. Antegrade flow in both vertebral arteries. * Appreciate vascular surgical consultation. * MRA of the neck revealed 63% stenosis of the right carotid bifurcation. No significant stenosis of the left carotid bifurcation. The carotid and vertebral arteries are patent. No evidence of aneurysm. I personally reviewed MRI, and there is there is severe stenosis right ICA. * Fasting a.m. lipid panel cholesterol 104, LDL 21, HDL 45 and triglycerides 190. Continue Lipitor 40 mg. * Hemoglobin A1c 5.7 * Avoid hypotension. * Patient was taking aspirin 81 mg daily prior to arrival. Patient started on Plavix 75 mg daily. * Neuro checks every 2 hours * Telemetry monitoring rule out any arrhythmia * Nephrology following for hypomagnesemia, and chronic renal insufficiency. * PT, OT, speech therapy * DVT prophylaxis: Heparin 5000 units subcu every 12 hours
[2024-05-09 07:09] LABS: HCT 34.1 % (39.0-53.0); HGB 11.2 gm/dL (13.0-17.5); MCH 29.6 pg (25.0-35.0); MCHC 32.8 g/dL (31.0-37.0); MCV 90.3 fL (80.0-100.0); Mean Platelet Volume 8.1; Platelet Count 230 k/uL (150-450); RBC 3.77 m/uL (4.30-5.90); RDW 14.6 % (11.5-15.5); WBC 8.9 k/uL (3.8-10.6)
[2024-05-09 07:19] LABS: African American GFR (CKD) 46 (>60 ml/min/1.73 sqM); Anion Gap 4 mmol/L; Blood Urea Nitrogen 21 mg/dL (9-20); Calcium 8.9 mg/dL (8.4-10.2); Carbon Dioxide 28 mmol/L (22-30); Chloride 103 mmol/L (98-107); Glucose 96 mg/dL (74-99); Magnesium 2.1 mg/dL (1.6-2.3); Non-African American GFR(CKD) 40 (>60 ml/min/1.73 sqM); Sodium 135 mmol/L (137-145)
--- NOTE | 2024-05-09 09:41 | P.PN ---
Subjective Patient is seen in follow-up for chronic kidney disease. Renal function at baseline. Denies chest pain or shortness of breath. Vital signs are stable. General: No acute distress. HEENT: Head exam is unremarkable. Cut the LUNGS: No audible rhonchi or wheezes. HEART: Rate and Rhythm are regular. ABDOMEN: Nontender. EXTREMITITES: No edema. Objective - Vital Signs Vital signs: Vital Signs Temp 97.9 F 05/09/24 03:42 Pulse 68 05/09/24 09:09 Resp 18 05/09/24 03:42 BP 149/95 05/09/24 03:42 Pulse Ox 96 05/09/24 03:42 FiO2 Intake & Output 05/08/24 05/09/24 05/09/24 18:59 06:59 18:59 Intake Total 354 Balance 354 Weight 102 kg Intake: Oral 354 Other: Voiding Method Toilet Toilet # Voids 3 # Bowel Movements 2 3 - Labs CBC & Chem 7: 05/09/24 06:33 05/09/24 06:33 Labs: Abnormal Lab Results - Last 24 Hours (Table) 05/08/24 05/09/24 05/09/24 Range/Units 11:02 06:33 06:33 RBC 3.77 L (4.30-5.90) m/uL Hgb 11.2 L (13.0-17.5) gm/dL Hct 34.1 L (39.0-53.0) % Sodium 135 L 135 L (137-145) mmol/L BUN 21 H 21 H (9-20) mg/dL Creatinine 1.66 H 1.65 H (0.66-1.25) mg/dL Magnesium 1.4 L (1.6-2.3) mg/dL Assessment and Plan Plan: Assessment: 1. Chronic kidney disease stage IIIb with baseline creatinine near 1.8-2 secondary to IgA nephropathy. GFR at baseline. UA benign this admission. 2. Acute kidney injury secondary to vasomotor nephropathy from hypovolemia. Improved. 3. Acute CVA. 4. Right carotid artery stenosis scheduled for surgery May 10, 2024. 5. Hypertension with chronic kidney disease. 6. Hypomagnesemia from chronic GI losses and PPI use. Replaced. Better. On oral magnesium oxide. Plan: Add amlodipine 2.5 mg once daily. Hold for systolic blood pressure less than 125. Avoid nephrotoxins. Continue to monitor renal function and urine output.
[2024-05-09] MEDS ORDERED: amLODIPine 5 MG TAB PO SCH (09:45)
--- NOTE | 2024-05-09 10:05 | P.PN ---
Subjective Progress Note Date: 05/09/24 Principal diagnosis: Carotid stenosis Patient is seen and examined today as a follow-up. No complaints of any new focal deficits. No complaints of shortness of breath or chest pain. Plan is for TCAR tomorrow. Patient has remained on aspirin and Plavix. Objective - Vital Signs Vital signs: Vital Signs Temp 97.9 F 05/09/24 03:42 Pulse 74 05/09/24 03:42 Resp 18 05/09/24 03:42 BP 149/95 05/09/24 03:42 Pulse Ox 96 05/09/24 03:42 FiO2 Intake & Output 05/08/24 05/09/24 05/09/24 18:59 06:59 18:59 Intake Total 354 Balance 354 Weight 102 kg Intake: Oral 354 Other: Voiding Method Toilet Toilet # Voids 3 # Bowel Movements 2 3 - Exam General appearance: The patient is alert, oriented, appears in no acute distress. HET: Head is normocephalic and atraumatic. Pupils are equal and reactive. Neck: Supple. Heart: Regular. Lungs: Equal expansion, normal respiratory effort. Abdomen: Soft, nondistended. Extremities: Normal skin color and turgor. Neurological: No focal deficits. Strength and sensation are grossly intact. - Labs CBC & Chem 7: 05/09/24 06:33 05/09/24 06:33 Labs: Abnormal Lab Results - Last 24 Hours (Table) 05/08/24 05/09/24 05/09/24 Range/Units 11:02 06:33 06:33 RBC 3.77 L (4.30-5.90) m/uL Hgb 11.2 L (13.0-17.5) gm/dL Hct 34.1 L (39.0-53.0) % Sodium 135 L 135 L (137-145) mmol/L BUN 21 H 21 H (9-20) mg/dL Creatinine 1.66 H 1.65 H (0.66-1.25) mg/dL Magnesium 1.4 L (1.6-2.3) mg/dL Assessment and Plan Assessment: 1. Symptomatic right internal carotid artery stenosis 2. Acute/subacute stroke involving right frontal/parietal region 3. COPD oxygen dependent 4. Coronary artery disease 5. Hypomagnesemia 6. Crohn's disease 7. Former smoker Plan: 1. Plan is for transcarotid artery revascularization on 05/10/2024 2. MRA neck ordered and reviewed 3. Continue aspirin, Plavix and atorvastatin 4. Patient seen by cardiology and optimized for surgical intervention. 5. Continue with recommendations from neurology 6. Continue with recommendations from nephrology 7. PT/OT/ST on consult 8. Repeat magnesium, replace per protocol 9. P.o. after midnight 10. Rest of medical management per primary medical team Thank you for this consultation, we will continue to follow. The impression and plan of care has been dictated as directed. Dr. Mena I performed a history and examination of this patient, discussed the same with the dictator. I agree with the dictator's note ,documented as a scribe. Any additional findings or plans will be noted.
--- NOTE | 2024-05-09 15:46 | P.PN ---
Subjective Progress Note Date: 05/09/24 74 year old M with PMH of Crohns disease status post bowel resection, COPD on 2L home O2, CKD stage III, HTN, persistent hypoMag presented to the ED for LUE numbness and lip numbness for the past 3 days. In the ED he underwent extensive evaluation. BP 134/70, HR 67, T 97.5F, RR 18, 99% on RA. CBC, Coag panel, CMP significant for RBC 3.87, Hg 11, Hct 35.7, Cl 118, bicarb 10, BUN 36, Cr 2.30, alb 3.4. Mag 1.1. EKG sinus rhythm. CT brain negative. CXR negative. Admitted for further workup and management. Magnesium replaced and Nephrology consulted. Underwent CVA workup. Neurology consulted. Brain MRI acute CVA involving right frontal/parietal region. Echo EF 55-60% negative bubble study. Carotid doppler 50-69% stenosis R carotid bifurcation and < 50% left carotid. Neck MRA 63% right carotid bifurcation stenosis. Vascular consulted, plans for TCAR on 05/10. Cardiology consulted for medical clearance. 05/09 Patient was seen and examined. No complaints. CBC and BMP significant for RBC 3.77, Hg 11.2, Hct 34.1, Na 135, BUN 21. Cr 1.65. Mag 2.1. General: non toxic, no distress, appears at stated age Derm: warm, dry Head: atraumatic, normocephalic, symmetric Eyes: EOMI, no lid lag, anicteric sclera Mouth: no lip lesion, mucus membranes moist Cardiovascular: S1S2 reg, no murmur Lungs: CTA bilateral, no rhonchi, no rales, no accessory muscle use Ext: no gross muscle atrophy, no edema, no contractures Neuro: no focal neuro deficits Psych: Alert, oriented, appropriate affect Based on my assessment of this patient, this patient meets a high complexity level of care. Acute CVA: ASA 81 mg PO QD. Lipitor 40 mg PO QHS. Plavix 75 mg PO QD. Neurology on board. Right Carotid artery stenosis: Management as above. Vascular surgery plans for TCAR on 05/10. COPD on 2L home O2: Albuterol neb Q4H PRN for SOB. Symbicort 2 INH BID. History of Crohn's disease: Status post resection. Questran 4g PO TID. Colazal 2250 mg PO TID. CKD stage III: Nephrology on board. Hypertension: Metoprolol 25 mg PO QD. Resolved: HypoMag. CODE STATUS: FULL CODE DVT Prophylaxis: Heparin SQ GI Prophylaxis: Designated medical POA if patient is not able to make medical decisions for themselves: I have reviewed the following microsoft dynamics consultant notes: Nephrology, Vascular, Neurology I have reviewed the results of the following tests: CBC, BMP. I have ordered the following tests: I have discussed the care of this patient with the following independent historian: I have independently interpreted the following test below: I have discussed the management of this patient with the following physician: Objective - Vital Signs Vital signs: Vital Signs Temp 97.9 F 05/09/24 03:42 Pulse 74 05/09/24 03:42 Resp 18 05/09/24 03:42 BP 149/95 05/09/24 03:42 Pulse Ox 96 05/09/24 03:42 FiO2 Intake & Output 05/08/24 05/09/24 05/09/24 18:59 06:59 18:59 Intake Total 354 Balance 354 Weight 102 kg Intake: Oral 354 Other: Voiding Method Toilet Toilet # Voids 3 # Bowel Movements 2 3 - Labs CBC & Chem 7: 05/09/24 06:33 05/09/24 06:33 Labs: Abnormal Lab Results - Last 24 Hours (Table) 05/08/24 05/09/24 05/09/24 Range/Units 11:02 06:33 06:33 RBC 3.77 L (4.30-5.90) m/uL Hgb 11.2 L (13.0-17.5) gm/dL Hct 34.1 L (39.0-53.0) % Sodium 135 L 135 L (137-145) mmol/L BUN 21 H 21 H (9-20) mg/dL Creatinine 1.66 H 1.65 H (0.66-1.25) mg/dL Magnesium 1.4 L (1.6-2.3) mg/dL
[2024-05-10] MEDS ORDERED: PROTAMINE SULFATE 10 MG/ML 5 ML VIAL ONE (07:40)
[2024-05-10] MEDS ORDERED: ePHEDrine 50 MG/ML 1 ML VIAL ONE (07:40)
[2024-05-10] MEDS ORDERED: fentaNYL (PF) 50 MCG/ML 2 ML AMP ONE (07:40)
[2024-05-10] MEDS ORDERED: GLYCOPYRROLATE 0.2 MG/ML 2 ML VIAL ONE (07:40)
[2024-05-10] MEDS ORDERED: ceFAZolin 1 GM/50 ML BAG (PMX) ONE (07:40)
[2024-05-10] MEDS ORDERED: WATER FOR INJECTION, STERILE 10 ML VIAL IV ONE (07:40)
[2024-05-10] MEDS ORDERED: HEPARIN SODIUM,PORCINE 10,000 UNIT/ML 1 ML VIAL ONE (07:40)
[2024-05-10] MEDS ORDERED: MIDAZOLAM 2 MG/2 ML VIAL ONE (07:40)
[2024-05-10] MEDS ORDERED: PHENYLEPHRINE-0.9% NACL SYG 1,000 MCG/10 ML SYRINGE ONE (07:40)
[2024-05-10] MEDS: LIDOCAINE 1%-EPI 1:100,000 20 ML VIAL SQ ONE (08:03)
[2024-05-10] MEDS ORDERED: RX INFO: IV CONTRAST WAS GIVEN 1 EACH MISC MISCELLANE PRN (09:00)
[2024-05-10] MEDS: THROMBIN (BOVINE) 5,000 UNIT VIAL MISCELLANE ONE (09:00)
[2024-05-10] MEDS: IOPAMIDOL-250 100ML BTL INTRAARTER ONE (09:01)
[2024-05-10] MEDS: IV FLUID CONTINUATION 1,000 ML IV ONE (09:32)
[2024-05-10] MEDS ORDERED: ATROPINE SULFATE 0.1 MG/ML 10ML SYRINGE IV PRN (09:42)
[2024-05-10 09:50] VITALS: BMI 27.8
--- NOTE | 2024-05-10 09:50 | P.OP ---
Date of Procedure: 05/10/24 Description of Procedure: Preoperative diagnosis: Symptomatic right internal carotid artery stenosis Postoperative diagnosis: Same Procedure: Right transcarotid artery revascularization with stenting. Right common femoral vein central venous catheter placement under ultrasound guidance Surgeon: Jeanne Mena DO Sales Forecast Analyst: Nely Han Anesthesia: Conscious sedation Complications: None Condition: Stable Flow reversal time: 18 minutes Lesion length: 19 mm Indication for procedure: Patient is a 74-year-old male with symptomatic right internal carotid artery stenosis who presents today for right transcarotid artery revascularization and stent. Risks and benefits were discussed including but not limited to bleeding, infection, injury to the vessel and stroke. He seemingly understood and was willing to proceed. Operative narrative: After written and informed consent was obtained the patient all risks benefits and competitions were described the patient was brought to the Abstract Searcher and laid in a supine position. The area of the neck and groins were prepped and draped in usual sterile fashion after appropriate anesthetic was performed per the anesthesiologist. A timeout was performed in normal fashion and antibiotics were administered prior to incision. Utilizing ultrasound the common carotid artery was located and a transverse incision was created overlying this area after proper anesthetization. Dissection was carried between the sternocleidomastoid musculature down to the carotid sheath. The sheath was then incised and the common carotid artery was located and dissected free in a circumferential manner and controlled with umbilical tape. Once controlled, attention was placed down to the common femoral vein and utilizing ultrasound the vein was cannulated and the 8-Portuguese sheath was placed in normal fashion. Attention was then placed back to the carotid artery and the patient was administered heparin and followed with ACTs and redosed as needed for ACT above 250. A pursestring suture was then placed at the common carotid artery with 5-0 Prolene and utilizing a micropuncture needle the common carotid artery was accessed and wire was placed followed by a 4-Portuguese sheath. Carotid angiogram was then obtained demonstrating significant stenosis in the internal carotid artery. Stiff wire was then placed followed by the 8 Portuguese Silkroad sheath. Flow reversal was then established with the enroute EDUCATIONAL ADMINISTRATOR system after patient's blood pressure was increased to above 160, heart rate above 60 and ACT above 250. 014 wire was then placed across the lesion followed by a 30 mm Diop balloon and balloon angioplasty was performed followed by an 10 mm Silkroad stent. Postdilatation was not performed and final angiogram was obtained demonstrating complete resolution of the stenosis. All guidewires and catheters were removed and the sheath was removed and the arteriotomy was secured with the previously placed pursestring suture. Hemostasis was assured with Gelfoam and thrombin. The area was irrigated and closed. The platysma was closed with 3-0 Vicryl. The skin was closed with running 4-0 Monocryl in subcuticular fashionThe femoral sheath was also removed and pressure was held for hemostasis. The patient all procedure well and was moving all extremities and following commands. The patient was then sent to PACU for recovery.
[2024-05-10 09:52] LABS: Glucose,Whole Blood 95 mg/dL (70-110)
[2024-05-10] MEDS: NOREPINEPHRINE 4 MG in SODIUM CHLORIDE 0.9% 250 ML IV SCH (10:25)
[2024-05-10] MEDS: PSEUDOEPHEDRINE 30 MG TAB PO SCH (10:44)
[2024-05-10] MEDS: ACETAMINOPHEN TAB 325 MG TAB PO PRN (10:45)
--- NOTE | 2024-05-10 11:14 | IR ---
EXAMINATION TYPE: IR stent intravas non coronary DATE OF EXAM: 05/10/2024 FLUOROSCOPY TCAR, 4.9 MINS, 0.146GY. 79 images provided. [facility], , 05/10/2024 11:12 AM
[2024-05-10] MEDS: MORPHINE SULFATE 2 MG/ML SYRINGE IVP PRN (11:35)
[2024-05-10 14:21] LABS: Glucose,Whole Blood 95 mg/dL (70-110)
[2024-05-10] MEDS: amLODIPine 2.5 MG TAB PO SCH (15:27)
[2024-05-10] MEDS: EMPTY BAG 1 BAG with SODIUM CHLORIDE 0.9% 1,000 ML IV ONE (15:30)
--- NOTE | 2024-05-10 16:01 | P.PN ---
Subjective Progress Note Date: 05/10/24 74 year old M with PMH of Crohns disease status post bowel resection, COPD on 2L home O2, CKD stage III, HTN, persistent hypoMag presented to the ED for LUE numbness and lip numbness for the past 3 days. In the ED he underwent extensive evaluation. BP 134/70, HR 67, T 97.5F, RR 18, 99% on RA. CBC, Coag panel, CMP significant for RBC 3.87, Hg 11, Hct 35.7, Cl 118, bicarb 10, BUN 36, Cr 2.30, alb 3.4. Mag 1.1. EKG sinus rhythm. CT brain negative. CXR negative. Admitted for further workup and management. Magnesium replaced and Nephrology consulted. Underwent CVA workup. Neurology consulted. Brain MRI acute CVA involving right frontal/parietal region. Echo EF 55-60% negative bubble study. Carotid doppler 50-69% stenosis R carotid bifurcation and < 50% left carotid. Neck MRA 63% right carotid bifurcation stenosis. Vascular consulted, plans for TCAR on 05/10. Cardiology consulted for medical clearance. 05/10 Patient was seen and examined. Underwent right transcarotid artery revascularization with stenting. Currently on Levophed 0.05 mcg/kg/min. Reports some pain in his right neck. General: non toxic, no distress, appears at stated age Derm: warm, dry Head: atraumatic, normocephalic, symmetric Eyes: EOMI, no lid lag, anicteric sclera Mouth: no lip lesion, mucus membranes moist Cardiovascular: S1S2 reg, no murmur Lungs: CTA bilateral, no rhonchi, no rales, no accessory muscle use Ext: no gross muscle atrophy, no edema, no contractures Neuro: no focal neuro deficits Psych: Alert, oriented, appropriate affect Based on my assessment of this patient, this patient meets a high complexity level of care. Acute CVA: ASA 81 mg PO QD. Lipitor 40 mg PO QHS. Plavix 75 mg PO QD. Neurology on board. Right Carotid artery stenosis: POD 0 right transcarotid artery revascularization with stenting. Management as above. Vascular surgery plans for TCAR on 05/10. Hypotension: Levophed 0.05 mcg/kg/min. Maintain MAP > 65. Hold Metoprolol and Amlodipine. COPD on 2L home O2: Albuterol neb Q4H PRN for SOB. Symbicort 2 INH BID. History of Crohn's disease: Status post resection. Questran 4g PO TID. Colazal 2250 mg PO TID. CKD stage III: Nephrology on board. Resolved: HypoMag. CODE STATUS: FULL CODE DVT Prophylaxis: Heparin SQ GI Prophylaxis: Designated medical POA if patient is not able to make medical decisions for themselves: I have reviewed the following mental hygiene consultant notes: Nephrology, Vascular, Operative report I have reviewed the results of the following tests: I have ordered the following tests: I have discussed the care of this patient with the following independent historian: AXEL. I have independently interpreted the following test below: I have discussed the management of this patient with the following physician: Objective - Vital Signs Vital signs: Vital Signs Temp 97.9 F 05/10/24 03:42 Pulse 63 05/10/24 03:42 Resp 18 05/10/24 03:42 BP 137/83 05/10/24 03:42 Pulse Ox 97 05/10/24 03:42 FiO2 Intake & Output 05/09/24 05/10/24 05/10/24 18:59 06:59 18:59 Intake Total 240 Balance 240 Weight 100.8 kg Intake: Oral 240 Other: Voiding Method Toilet Toilet # Voids 3 3 # Bowel Movements 3 - Labs CBC & Chem 7: 05/09/24 06:33 05/09/24 06:33
[2024-05-10] MEDS: MORPHINE SULFATE 4 MG/ML SYRINGE IVP PRN (16:21)
[2024-05-10] MEDS: HYDROcodone/APAP 5-325MG 1 EACH TAB PO PRN (20:30)
[2024-05-11 05:42] LABS: Basophils % (A) 1 %; Eosinophils # (A) 0.4 k/uL (0-0.7); Eosinophils % (A) 6 %; HGB 10.2 gm/dL (13.0-17.5); Hypochromasia Moderate; Lymphocytes # (A) 1.7 k/uL (1.0-4.8); Lymphocytes % (A) 23 %; MCH 28.9 pg (25.0-35.0); MCV 93.1 fL (80.0-100.0); Mean Platelet Volume 7.7; Monocytes # (A) 0.6 k/uL (0-1.0); Monocytes % (A) 8 %; Neutrophils # (A) 4.6 k/uL (1.3-7.7); Neutrophils % (A) 61 %; Platelet Count 225 k/uL (150-450); RBC 3.55 m/uL (4.30-5.90); RDW 14.4 % (11.5-15.5); WBC 7.5 k/uL (3.8-10.6)
[2024-05-11 05:52] LABS: African American GFR (CKD) 48 (>60 ml/min/1.73 sqM); Anion Gap 2 mmol/L; Blood Urea Nitrogen 22 mg/dL (9-20); Calcium 8.3 mg/dL (8.4-10.2); Carbon Dioxide 24 mmol/L (22-30); Chloride 107 mmol/L (98-107); Glucose 117 mg/dL (74-99); Non-African American GFR(CKD) 41 (>60 ml/min/1.73 sqM); Potassium 4.5 mmol/L (3.5-5.1); Sodium 133 mmol/L (137-145)
[2024-05-11] MEDS: MAGNESIUM SULFATE-D5W PMX 1 GM in DEXTROSE/WATER 1 100ML.BAG IVPB SCH (08:43)
--- NOTE | 2024-05-11 09:50 | P.PN ---
Subjective Patient is seen in follow-up for chronic kidney disease. Renal function at baseline. Denies chest pain or shortness of breath. Complains of pain at the surgical site. Vital signs are stable. General: No acute distress. HEENT: Head exam is unremarkable. LUNGS: No audible rhonchi or wheezes. HEART: Rate and Rhythm are regular. ABDOMEN: Nontender. EXTREMITITES: No edema. Objective - Vital Signs Vital signs: Vital Signs Temp 98.7 F 05/11/24 04:00 Pulse 63 05/11/24 09:30 Resp 11 L 05/11/24 09:30 BP 134/70 05/11/24 09:30 Pulse Ox 94 L 05/11/24 09:30 FiO2 Intake & Output 05/10/24 05/11/24 05/11/24 18:59 06:59 18:59 Intake Total 9764.703 3100.810 Output Total 650 1100 Balance 399.628 426.810 Weight 100.8 kg 108.2 kg Intake: IV 450 400 IV Fluid Continuation 1, 400 000 ml @ 0 mls/hr IV .[employer] [facility] Rx#:[id number] Intake, IV Titration 119.628 92.810 Amount Norepinephrine 4 mg In 119.628 92.810 Sodium Chloride 0.9% 250 ml @ 0.03 MCG/KG/MIN 11. 521 mls/hr IV .Q22H3M [facility] Rx#:[id number] Oral 480 1034 Output: Urine 650 1100 Uretheral (Mena) 650 Other: Voiding Method Urinal Urinal ABP, PAP, CO, CI - Last Documented Arterial Blood Pressure 165/57 - Labs CBC & Chem 7: 05/11/24 05:30 05/11/24 05:30 Labs: Abnormal Lab Results - Last 24 Hours (Table) 05/11/24 05/11/24 05/11/24 Range/Units 05:30 05:30 05:30 RBC 3.55 L (4.30-5.90) m/uL Hgb 10.2 L (13.0-17.5) gm/dL Hct 33.0 L (39.0-53.0) % Sodium 133 L (137-145) mmol/L BUN 22 H (9-20) mg/dL Creatinine 1.61 H (0.66-1.25) mg/dL Glucose 117 H (74-99) mg/dL Calcium 8.3 L (8.4-10.2) mg/dL Magnesium 1.4 L (1.6-2.3) mg/dL Assessment and Plan Plan: Assessment: 1. Chronic kidney disease stage IIIb with baseline creatinine near 1.8-2 secondary to IgA nephropathy. GFR at baseline. UA benign this admission. 2. Acute kidney injury secondary to vasomotor nephropathy from hypovolemia. Improved. 3. Acute CVA. 4. Right carotid artery stenosis status post right transcarotid artery revascularization with stenting May 10, 2024. 5. Hypertension with chronic kidney disease. Controlled. 6. Hypomagnesemia from chronic GI losses. On oral magnesium oxide. Plan: 2 g IV magnesium sulfate today. Avoid nephrotoxins. Continue to monitor renal function and urine output.
--- NOTE | 2024-05-11 11:07 | P.PN ---
Subjective Progress Note Date: 05/11/24 Principal diagnosis: Carotid stenosis Patient is seen and examined today in the ICU. He is postop day #1 for right transcarotid artery revascularization. He had some postop hypotension was started on Levophed and Sudafed. Levophed was discontinued by the ICU. Patient denies any focal deficits. He is having little bit of dizziness which he believes is secondary to his low magnesium. He is complaining of some neck pain secondary to surgery as well as chronic neck pain. Nursing is reporting he is having some orthostatic hypotension. He is making good urine output. A rterial line blood pressures have been reported as not accurate. Will pull line today. Objective - Vital Signs Vital signs: Vital Signs Temp 98.7 F 05/11/24 04:00 Pulse 57 L 05/11/24 07:00 Resp 14 05/11/24 07:00 BP 117/75 05/11/24 07:00 Pulse Ox 96 05/11/24 07:00 FiO2 Intake & Output 05/10/24 05/11/24 05/11/24 18:59 06:59 18:59 Intake Total 4096.378 0426.810 Output Total 650 1100 Balance 399.628 426.810 Weight 100.8 kg 108.2 kg Intake: IV 450 400 IV Fluid Continuation 1, 400 000 ml @ 0 mls/hr IV .[employer] [facility] Rx#:[id number] Intake, IV Titration 119.628 92.810 Amount Norepinephrine 4 mg In 119.628 92.810 Sodium Chloride 0.9% 250 ml @ 0.03 MCG/KG/MIN 11. 521 mls/hr IV .Q22H3M [facility] Rx#:[id number] Oral 480 1034 Output: Urine 650 1100 Uretheral (Mena) 650 Other: Voiding Method Urinal Urinal ABP, PAP, CO, CI - Last Documented Arterial Blood Pressure 116/48 - Exam General appearance: The patient is alert, oriented, appears in no acute dist ress. HET: Head is normocephalic and atraumatic. Pupils are equal and reactive. Neck: Supple. Right-sided neck incision with dressing clean dry and intact. No swelling or ecchymosis noted. Heart: Regular. Lungs: Equal expansion, normal respiratory effort. Abdomen: Soft, nondistended. Extremities: Normal skin color and turgor. Right groin access site without any bleeding, hematoma or ecchymosis noted. Neurological: No focal deficits. Strength and sensation are grossly intact. - Labs CBC & Chem 7: 05/11/24 05:30 05/11/24 05:30 Labs: Abnormal Lab Results - Last 24 Hours (Table) 05/11/24 05/11/24 05/11/24 Range/Units 05:30 05:30 05:30 RBC 3.55 L (4.30-5.90) m/uL Hgb 10.2 L (13.0-17.5) gm/dL Hct 33.0 L (39.0-53.0) % Sodium 133 L (137-145) mmol/L BUN 22 H (9-20) mg/dL Creatinine 1.61 H (0.66-1.25) mg/dL Glucose 117 H (74-99) mg/dL Calcium 8.3 L (8.4-10.2) mg/dL Magnesium 1.4 L (1.6-2.3) mg/dL Assessment and Plan Assessment: 1. Symptomatic right internal carotid artery stenosis status post TCAR 2. Acute/subacute stroke involving right frontal/parietal region 3. COPD oxygen dependent 4. Coronary artery disease 5. Hypomagnesemia 6. Crohn's disease 7. Former smoker Plan: 1. Postop day #1 transcarotid artery revascularization 2. Continue aspirin, Plavix and atorvastatin 3. Continue with PT/OT 4. Replace magnesium per protocol 5. May discontinue arterial line 6. Encourage ambulation 7. Diet as tolerated 8. Continue Sudafed, maintain systolic blood pressures between 130 and 180 9. Rest of medical management per primary medical team Thank you for this consultation, we will continue to follow. The impression and plan of care has been dictated as directed. Dr. Mena I performed a history and examination of this patient, discussed the same with the dictator. I agree with the dictator's note ,documented as a scribe. Any additional findings or plans will be noted.
--- NOTE | 2024-05-11 13:29 | CDI ---
Documentation Clarification Form Date: 05/11/2024 From: Jolanta Wiseman RN CCDS Phone: [phone] Admit Date: 05/03/2024 11:42:00 AM Patient Name: Joseph Sibley Visit Number: [id number] Discharge Date: ATTENTION: The Clinical Documentation Specialists (CDI) and [facility] Coding Staff appreciate your assistance in clarifying documentation. Please respond to the clarification below the line at the bottom and electronically sign. The CDI & [facility] Coding staff will review the response and follow-up if needed. Please note: Queries are made part of the Legal Health Record. If you have any questions, please contact the author of this message via ITS. Dr. Jeanne Mena, DO: Postop hypotension is documented in the Vascular note 05/11. Additional clarification is requested regarding the relationship, if any, that exists between the diagnosis and the procedure. Patients Admitting Diagnosis: Symptomatic right internal carotid artery stenosis Post-Operative Diagnosis: Same Procedure performed: 05/10 Right transcarotid artery revascularization with stenting. Right common femoral vein central venous catheter placement under ultrasound guidance. History/Risk Factors: 74-year-old male with a history of Crohns, COPD on 2 liters nasal cannula, CKD3, Hypomagnesemia and HTN who presents with generalized weakness, with left upper extremity weakness and numbness suspected due to hypomagnesemia Clinical Indicators: 05/10 BP Low: 78/35, High: 203/90 (all systolics above 100, all diastolics above 50 except for this one low 78/35) 05/11 Vascular PN, Subjective: "He is postop day #1 for right transcarotid artery revascularization.He had some postop hypotension was started on Levophed and Sudafed. Levophed was discontinued by the ICU. Patient denies any focal deficits. He is having little bit of dizziness which he believes is secondary to his low magnesium. Nursing is reporting he is having some orthostatic hypotension. Arterial line blood pressures have been reported as not accurate." Treatment: Levophed 4mg titrated drip 05/10 What relationship, if any, exists between the diagnosis of postop hypotension and the procedure: [ ] Postop hypotension is a complication of surgical procedure [ x ] Postop hypotension is an expected outcome of the surgical procedure [ ] Postop hypotension is related to patients co-morbid condition(s) of orthostatic hypotension & not a complication of the procedure [ ] Postop hypotension has been ruled out [ ] Other please specify ____ [ ] Unable to determine MTDD
--- NOTE | 2024-05-11 13:46 | P.PN ---
Subjective Progress Note Date: 05/11/24 I am seeing the patient for the first time during this hospital visit. Please refer to Dr. Lobo's note for further details seems to the patient's been having recurrent left arm weakness and had numbness about a week ago prior to present to our facility. He has symptomatic right ICA and he feels his symptoms has improved.. The patient had TCAR performed. Today he feels he is doing well other than his blood pressure fluctuating. Denies any new neurological issues. Objective - Vital Signs Vital signs: Vital Signs Temp 97.8 F 05/11/24 13:00 Pulse 65 05/11/24 13:00 Resp 20 05/11/24 13:00 BP 123/55 05/11/24 13:00 Pulse Ox 94 L 05/11/24 13:00 FiO2 Intake & Output 05/10/24 05/11/24 05/11/24 18:59 06:59 18:59 Intake Total 8523.782 6201.810 920 Output Total 650 1100 175 Balance 399.628 426.810 745 Weight 100.8 kg 108.2 kg Intake: IV 450 400 IV Fluid Continuation 1, 400 000 ml @ 0 mls/hr IV .[facility] Rx#:[id number] Intake, IV Titration 119.628 92.810 200 Amount Magnesium Sulfate-D5w Pmx 200 1 gm In Dextrose/Water 1 100ml.bag @ 100 mls/hr IVPB Q1H [facility] Rx#: [id number] Norepinephrine 4 mg In 119.628 92.810 Sodium Chloride 0.9% 250 ml @ 0.03 MCG/KG/MIN 11. 521 mls/hr IV .Q22H3M [facility] Rx#:[id number] Oral 480 1034 720 Output: Urine 650 1100 175 Uretheral (Mena) 650 Other: Voiding Method Urinal Urinal Urinal # Voids 1 ABP, PAP, CO, CI - Last Documented Arterial Blood Pressure 147/52 - Exam GENERAL: The patient is lying in bed and is not in acute distress. Higher mental function: The patient is awake, alert, oriented to self, place and time. Patient is following commands. No aphasia and no neglect. Cranial nerves: The pupils are round, equal and reactive to light and accommodation. Visual pulliam are full to confrontation throughout. Extraocular movement is intact no nystagmus is noted. Facial sensation is normal to touch throughout. The facial strength is normal throughout. Tongue is midline and moved [id number] without any difficulty. No dysarthria is noted. Motor: The strength is 5 over 5 throughout. Normal tone and bulk. Cerebellum: Normal finger to nose bilaterally. Sensation: Sensation is normal to touch throughout. - Labs CBC & Chem 7: 05/11/24 05:30 05/11/24 05:30 Labs: Abnormal Lab Results - Last 24 Hours (Table) 05/11/24 05/11/24 05/11/24 Range/Units 05:30 05:30 05:30 RBC 3.55 L (4.30-5.90) m/uL Hgb 10.2 L (13.0-17.5) gm/dL Hct 33.0 L (39.0-53.0) % Sodium 133 L (137-145) mmol/L BUN 22 H (9-20) mg/dL Creatinine 1.61 H (0.66-1.25) mg/dL Glucose 117 H (74-99) mg/dL Calcium 8.3 L (8.4-10.2) mg/dL Magnesium 1.4 L (1.6-2.3) mg/dL Assessment and Plan Assessment: * Stroke/recurrent TIA manifesting with recurrent left arm weakness. Patient had 1 episode of transient left perioral numbness (about a week ago). His symptoms have improved, and current NIH stroke scale is 1. MRI confirmed scattered foci of acute/subacute CVA involving the right frontal/parietal region, somewhat in the watershed territory between the right MCA/JERED Due to symptomatic right ICA s/p TCAr on 05/10/2024 * Patient had 1 episode of TIA after breakfast today at 8:30 AM with transient left arm numbness that lasted for 20 to 30 minutes and now resolved. Current NIH stroke score is 0. * Symptomatic right ICA stenosis. * Hypertension * Diabetes * Moderate renal insufficiency * Hypomagnesemia Plan: * MRI of the brain without contrast, revealed scattered foci of acute/subacute CVA involving the right frontal/parietal region. Nonspecific white matter changes, likely secondary to small vessel ischemic disease. I personally reviewed MRI, agree with the findings. There is evidence of CVA involving the watershed territory between the right MCA/CVA. * 2-D echo revealed normal left ventricular size, wall thickness with no obvious regional wall motion abnormalities. LVEF 55 to 60%. Normal left and right atrial size. Negative agitated saline bubble study for [id number] shunt. No valvular dysfunction. * Carotid Doppler, revealed 50 to 69% stenosis of the right carotid bifurcation by peak systolic velocity and ratio. Less than 50% stenosis of the left carotid bifurcation. Antegrade flow in both vertebral arteries. * Appreciate vascular surgical consultation. * MRA of the neck revealed 63% stenosis of the right carotid bifurcation. No significant stenosis of the left carotid bifurcation. The carotid and vertebral arteries are patent. No evidence of aneurysm. I personally reviewed MRI, and there is there is severe stenosis right ICA. * Fasting a.m. lipid panel cholesterol 104, LDL 21, HDL 45 and triglycerides 190. Continue Lipitor 40 mg. * Hemoglobin A1c 5.7 * Avoid hypotension. * Patient was taking aspirin 81 mg daily prior to arrival. Patient started on Plavix 75 mg daily. * Neuro checks every 2 hours * Telemetry monitoring rule out any arrhythmia * Nephrology following for hypomagnesemia, and chronic renal insufficiency. * PT, OT, speech therapy * DVT prophylaxis: Heparin 5000 units subcu every 12 hours * Clinically the patient is doing better and new neurological deficit. Upon discharge recommend the patient to follow-up with a neurologist as an outpatient within 2 to 3 weeks There is no further neurological workup. Will sign off. Please reconsult if needed Time with Patient: Less than 30
--- NOTE | 2024-05-11 17:42 | P.PN ---
Subjective Progress Note Date: 05/11/24 74 year old M with PMH of Crohns disease status post bowel resection, COPD on 2L home O2, CKD stage III, HTN, persistent hypoMag presented to the ED for LUE numbness and lip numbness for the past 3 days. In the ED he underwent extensive evaluation. BP 134/70, HR 67, T 97.5F, RR 18, 99% on RA. CBC, Coag panel, CMP significant for RBC 3.87, Hg 11, Hct 35.7, Cl 118, bicarb 10, BUN 36, Cr 2.30, alb 3.4. Mag 1.1. EKG sinus rhythm. CT brain negative. CXR negative. Admitted for further workup and management. Magnesium replaced and Nephrology consulted. Underwent CVA workup. Neurology consulted. Brain MRI acute CVA involving right frontal/parietal region. Echo EF 55-60% negative bubble study. Carotid doppler 50-69% stenosis R carotid bifurcation and < 50% left carotid. Neck MRA 63% right carotid bifurcation stenosis. Vascular consulted, underwent TCAR on 05/10. He was on Levophed for a short period of time post operatively. 05/11 Patient was seen and examined. Retained urine last night requiring straight cath. Weaned off Levophed last night. CBC and BMP significant for RBC 3.55, Hg 10.2, Hct 33, Na 133, BUN 22, Cr 1.61, glu 117, Ca 8.3. Mag 1.4. Plans for discharge tomorrow. General: non toxic, no distress, appears at stated age Derm: warm, dry Head: atraumatic, normocephalic, symmetric Eyes: EOMI, no lid lag, anicteric sclera Mouth: no lip lesion, mucus membranes moist Cardiovascular: S1S2 reg, no murmur Lungs: CTA bilateral, no rhonchi, no rales, no accessory muscle use Ext: no gross muscle atrophy, no edema, no contractures Neuro: no focal neuro deficits Psych: Alert, oriented, appropriate affect Based on my assessment of this patient, this patient meets a moderate complexity level of care. Acute CVA: ASA 81 mg PO QD. Lipitor 40 mg PO QHS. Plavix 75 mg PO QD. Neurology on board. Right Carotid artery stenosis: POD 1 right transcarotid artery revascularization with stenting. Management as above. Vascular surgery on board. Urinary retention: Flomax 0.4 mg PO QD. Bladder scan PRN. Urology consulted. HypoMag Mag sulfate IV x 1. COPD on 2L home O2: Albuterol neb Q4H PRN for SOB. Symbicort 2 INH BID. History of Crohn's disease: Status post resection. Questran 4g PO TID. Colazal 2250 mg PO TID. CKD stage III: Nephrology on board. CODE STATUS: FULL CODE DVT Prophylaxis: Heparin SQ GI Prophylaxis: Designated medical POA if patient is not able to make medical decisions for themselves: I have reviewed the following internal controls consultant notes: Neurology, Vascular, Nephrology I have reviewed the results of the following tests: CBC, BMP, Mag. I have ordered the following tests: I have discussed the care of this patient with the following independent historian: AXEL. I have independently interpreted the following test below: I have discussed the management of this patient with the following physician: Objective - Vital Signs Vital signs: Vital Signs Temp 98.7 F 05/11/24 04:00 Pulse 64 05/11/24 08:10 Resp 14 05/11/24 07:00 BP 117/75 05/11/24 07:00 Pulse Ox 96 05/11/24 07:58 FiO2 Intake & Output 05/10/24 05/11/24 05/11/24 18:59 06:59 18:59 Intake Total 4826.883 1004.810 Output Total 650 1100 Balance 399.628 426.810 Weight 100.8 kg 108.2 kg Intake: IV 450 400 IV Fluid Continuation 1, 400 000 ml @ 0 mls/hr IV [facility] Rx#:[id number] Intake, IV Titration 119.628 92.810 Amount Norepinephrine 4 mg In 119.628 92.810 Sodium Chloride 0.9% 250 ml @ 0.03 MCG/KG/MIN 11. 521 mls/hr IV .Q22H3M [facility] Rx#:[id number] Oral 480 1034 Output: Urine 650 1100 Uretheral (Mena) 650 Other: Voiding Method Urinal Urinal ABP, PAP, CO, CI - Last Documented Arterial Blood Pressure 116/48 - Labs CBC & Chem 7: 05/11/24 05:30 05/11/24 05:30 Labs: Abnormal Lab Results - Last 24 Hours (Table) 1005/11/24 05/11/24 Range/Units 05:30 05:30 05:30 RBC 3.55 L (4.30-5.90) m/uL Hgb 10.2 L (13.0-17.5) gm/dL Hct 33.0 L (39.0-53.0) % Sodium 133 L (137-145) mmol/L BUN 22 H (9-20) mg/dL Creatinine 1.61 H (0.66-1.25) mg/dL Glucose 117 H (74-99) mg/dL Calcium 8.3 L (8.4-10.2) mg/dL Magnesium 1.4 L (1.6-2.3) mg/dL
[2024-05-11] MEDS: TAMSULOSIN 0.4 MG CAP.ER.24H PO SCH (17:56)
[2024-05-12] MEDS: MAGNESIUM SULFATE-D5W PMX 1 GM in DEXTROSE/WATER 1 100ML.BAG IVPB SCH (08:59)
[2024-05-12 09:32] VITALS: RESP 20
--- NOTE | 2024-05-12 10:03 | P.PN ---
Subjective Patient is seen in follow-up for chronic kidney disease. Renal function at baseline. Denies chest pain or shortness of breath. No active complaints. Wants to go home. Vital signs are stable. General: No acute distress. HEENT: Head exam is unremarkable. LUNGS: No audible rhonchi or wheezes. HEART: Rate and Rhythm are regular. ABDOMEN: Nontender. EXTREMITITES: No edema. Objective - Vital Signs Vital signs: Vital Signs Temp 98.0 F 05/12/24 08:25 Pulse 66 05/12/24 08:25 Resp 20 05/12/24 08:25 BP 156/75 05/12/24 08:25 Pulse Ox 97 05/12/24 08:25 FiO2 Intake & Output 05/11/24 05/12/24 05/12/24 18:59 06:59 18:59 Intake Total 1100 200 Output Total 375 0 Balance 725 0 200 Weight 107.5 kg Intake: Intake, IV Titration 200 Amount Magnesium Sulfate-D5w Pmx 200 1 gm In Dextrose/Water 1 100ml.bag @ 100 mls/hr IVPB Q1H [facility] Rx#: [id number] Oral 900 200 Output: Urine 375 Stool 0 Other: Voiding Method Urinal Toilet Toilet Urinal Urinal # Voids 1 2 ABP, PAP, CO, CI - Last Documented Arterial Blood Pressure 147/52 - Labs CBC & Chem 7: 05/11/24 05:30 05/11/24 05:30 Assessment and Plan Plan: Assessment: 1. Chronic kidney disease stage IIIb with baseline creatinine near 1.8-2 secondary to IgA nephropathy. GFR at baseline. UA benign this admission. 2. Acute kidney injury secondary to vasomotor nephropathy from hypovolemia. Improved. 3. Acute CVA. 4. Right carotid artery stenosis status post right transcarotid artery revascularization with stenting May 10, 2024. 5. Hypertension with chronic kidney disease. Controlled. 6. Hypomagnesemia from chronic GI losses. On oral magnesium oxide. Also receiving IV magnesium. Patient will continue with IV magnesium replacements outpatient. Plan: Avoid nephrotoxins. Continue to monitor renal function and urine output. Follow-up outpatient 1 week postdischarge.
--- NOTE | 2024-05-12 11:17 | P.GSCN ---
History of Present Illness Consult date: 05/12/24 Reason for Consult: Incomplete bladder emptying Requesting physician: Ho Welsh History of present illness: The patient is a 74-year-old white male with a history of Crohn's disease (s/p bowel resection), COPD (requires home O2), Stage III CKD, and hypertension. He underwent bilateral hydrocelectomy by Dr. Green in August 2023. He underwent right transcarotid artery revascularization with stenting yesterday. He has required straight catheterization. Upon questioning, he states that he has intermittently experienced voiding difficulty for quite some time. He is currently receiving tamsulosin and denies voiding difficulty today. Review of Systems - Cardiovascular Reports high blood pressure - Genitourinary Reports as per HPI Past Medical History Past Medical History: GERD/Reflux, Hypertension, Osteoarthritis (OA), Renal Disease Additional Past Medical History / Comment(s): BOWEL RESECTION X2 DUE TO INFECTION, CROHNS, IBS, HERNIATED DISC, COVID JUL 2021, HOSPTALIZED AUG 2021 WITH RASH & TOE WOUND - HEALED, KIDNEY DISEASE, SOB W/ HOME O2, LOW MAGNESIUM W/ WEEKLY INFUSIONS History of Any Multi-Drug Resistant Organisms: None Reported Past Surgical History: Appendectomy, Bowel Resection Additional Past Surgical History / Comment(s): "35 YEARS AGO- BOWEL RESECTION AND ILEOCECAL VALVE REMOVED WITH 1 FOOT OF INTESTINE, HAD 2ND BOWEL RESECTION 3 YEARS AGO Past Anesthesia/Blood Transfusion Reactions: No Reported Reaction Past Psychological History: Anxiety Smoking Status: Former smoker Past Alcohol Use History: None Reported Additional Past Alcohol Use History / Comment(s): QUIT SMOKING 2017, HX OF 1 PPD Past Drug Use History: None Reported - Past Family History Mother Family Medical History: Coronary Artery Disease (CAD), Diabetes Mellitus Additional Family Medical History / Comment(s): NIDDM Father Family Medical History: Coronary Artery Disease (CAD), Diabetes Mellitus, Hypertension Medications and Allergies Home Medications Medication Instructions Recorded Confirmed Type Cholecalciferol [Vitamin D3 (25 50 mcg PO BID 05/06/21 05/03/24 History Mcg = 1000 Iu)] Cyanocobalamin (Vitamin B-12) 1,000 mcg PO DAILY 05/06/21 05/03/24 History [Vitamin B-12] Cholestyramine/Aspartame 4 gm PO TID-W/MEALS 10/15/22 05/03/24 History [Cholestyramine Light Packet] Calcium Carbonate 500 mg PO QID 10/13/23 05/03/24 History Empagliflozin [Jardiance] 10 mg PO DAILY 02/17/24 05/03/24 History Sodium Zirconium Cyclosilicate 5 gm PO DAILY 02/17/24 05/03/24 History [Lokelma] Albuterol Inhaler [Ventolin Hfa 2 puff INHALATION RT-Q4H PRN 03/31/24 05/03/24 History Inhaler] Atorvastatin [Lipitor] 40 mg PO HS 03/31/24 05/03/24 History Escitalopram [Lexapro] 20 mg PO DAILY 03/31/24 05/03/24 History Fluticasone Propion/Salmeterol 1 puff INHALATION RT-BID 03/31/24 05/03/24 History [Wixela 100-50 Inhub] Ipratropium-Albuterol Nebulize 3 ml INHALATION RT-Q4H 03/31/24 05/03/24 History [Duoneb 0.5 mg-3 mg/3 ml Soln] Magnesium Glycinate 200mg 600 mg PO DAILY 03/31/24 05/03/24 History Mesalamine [Asacol Hd] 800 mg PO TID 03/31/24 05/03/24 History Metoprolol Succinate (ER) [Toprol 25 mg PO DAILY 03/31/24 05/03/24 History XL] Aspirin 81 mg PO DAILY #30 tab 05/12/24 Rx Clopidogrel [Plavix] 75 mg PO DAILY #30 tab 05/12/24 Rx Tamsulosin [Flomax] 0.4 mg PO PC-BRKFST #30 cap 05/12/24 Rx amLODIPine [Norvasc] 2.5 mg PO DAILY #30 tab 05/12/24 Rx Allergies Allergy/AdvReac Type Severity Reaction Status Date / Time etodolac AdvReac Abdominal Verified 05/03/24 08:18 Pain hydrochlorothiazide AdvReac dizziness Verified 05/03/24 08:18 [From Prinzide] & cramps lisinopril [From Prinzide] AdvReac dizziness Verified 05/03/24 08:18 & cramps vardenafil [From Levitra] AdvReac Disoriented Verified 05/03/24 08:18 Surgical - Exam Vital Signs Temp Pulse Resp BP Pulse Ox 97.5 F L 67 18 134/70 99 05/03/24 08:15 05/03/24 08:15 05/03/24 08:15 05/03/24 08:15 05/03/24 08:15 - General well developed, well nourished, no distress - Respiratory normal respiratory effort - Abdomen Abdomen: soft, non tender, no guarding, no rigid, no rebound - Genitourinary normal penis with no external lesions, testicles non-tender - Psychiatric oriented to time, oriented to person, oriented to place, speech is normal, memory intact Results - Labs 05/11/24 05:30 05/11/24 05:30 Abnormal Lab Results - Last 24 Hours (Table) 05/11/24 05/11/24 05/11/24 Range/Units 05:30 05:30 05:30 RBC 3.55 L (4.30-5.90) m/uL Hgb 10.2 L (13.0-17.5) gm/dL Hct 33.0 L (39.0-53.0) % Sodium 133 L (137-145) mmol/L BUN 22 H (9-20) mg/dL Creatinine 1.61 H (0.66-1.25) mg/dL Glucose 117 H (74-99) mg/dL Calcium 8.3 L (8.4-10.2) mg/dL Magnesium 1.4 L (1.6-2.3) mg/dL Diabetes panel 05/11/24 Range/Units 05:30 Sodium 133 L (137-145) mmol/L Potassium 4.5 (3.5-5.1) mmol/L Chloride 107 (98-107) mmol/L Carbon Dioxide 24 (22-30) mmol/L BUN 22 H (9-20) mg/dL Creatinine 1.61 H (0.66-1.25) mg/dL Glucose 117 H (74-99) mg/dL Calcium 8.3 L (8.4-10.2) mg/dL Calcium panel 05/11/24 Range/Units 05:30 Calcium 8.3 L (8.4-10.2) mg/dL Pituitary panel 05/11/24 Range/Units 05:30 Sodium 133 L (137-145) mmol/L Potassium 4.5 (3.5-5.1) mmol/L Chloride 107 (98-107) mmol/L Carbon Dioxide 24 (22-30) mmol/L BUN 22 H (9-20) mg/dL Creatinine 1.61 H (0.66-1.25) mg/dL Glucose 117 H (74-99) mg/dL Calcium 8.3 L (8.4-10.2) mg/dL Adrenal panel 05/11/24 Range/Units 05:30 Sodium 133 L (137-145) mmol/L Potassium 4.5 (3.5-5.1) mmol/L Chloride 107 (98-107) mmol/L Carbon Dioxide 24 (22-30) mmol/L BUN 22 H (9-20) mg/dL Creatinine 1.61 H (0.66-1.25) mg/dL Glucose 117 H (74-99) mg/dL Calcium 8.3 L (8.4-10.2) mg/dL Assessment and Plan (1) Benign prostatic hyperplasia with lower urinary tract symptoms Current Visit: Yes Status: Acute Code(s): N40.1 - BENIGN PROSTATIC H YPERPLASIA WITH LOWER URINARY TRACT SYMP SNOMED Code(s): 841371379 Plan: The patient reports intermittent obstructive voiding symptoms, likely due to BPH. He is currently receiving tamsulosin and feels this is helping. Bladder scan will be repeated to be sure that he is emptying his bladder adequately. He will be discharged home later today, and arrangements will be made for him to follow-up with Dr. Green in 2 to 3 weeks.
--- NOTE | 2024-05-12 11:24 | P.PN ---
Subjective Progress Note Date: 05/12/24 Principal diagnosis: Carotid stenosis Patient is seen and examined today as a follow-up. He is postop day #2 for right transcarotid artery revascularization. Yesterday he was downgraded to selective care. He is sitting up at the bedside. Denies any new focal deficits. He no difficulty with swallowing. He has been up and ambulating. Good urine output. States neck pain improved. And he would like to go home. Objective - Vital Signs Vital signs: Vital Signs Temp 97.4 F L 05/12/24 04:00 Pulse 64 05/12/24 07:49 Resp 18 05/12/24 04:00 BP 124/65 05/12/24 04:00 Pulse Ox 97 05/12/24 04:00 FiO2 Intake & Output 05/11/24 05/12/24 05/12/24 18:59 06:59 18:59 Intake Total 1100 200 Output Total 375 0 Balance 725 0 200 Weight 107.5 kg Intake: Intake, IV Titration 200 Amount Magnesium Sulfate-D5w Pmx 200 1 gm In Dextrose/Water 1 100ml.bag @ 100 mls/hr IVPB Q1H ANGELA Rx#: [id number] Oral 900 200 Output: Urine 375 Stool 0 Other: Voiding Method Urinal Toilet Urinal # Voids 1 2 ABP, PAP, CO, CI - Last Documented Arterial Blood Pressure 147/52 - Exam General appearance: The patient is alert, oriented, appears in no acute distress. HET: Head is normocephalic and atraumatic. Pupils are equal and reactive. Neck: Supple. Right-sided neck incision last show well-approximated, ecchymosis surrounding. No hematoma. Heart: Regular. Lungs: Equal expansion, normal respiratory effort. Abdomen: Soft, nondistended. Extremities: Normal skin color and turgor. Right groin access site without any bleeding, hematoma or ecchymosis noted. Neurological: No focal deficits. Strength and sensation are grossly intact. - Labs CBC & Chem 7: 05/11/24 05:30 05/11/24 05:30 Assessment and Plan Assessment: 1. Symptomatic right internal carotid artery stenosis status post TCAR 2. Acute/subacute stroke involving right frontal/parietal region 3. COPD oxygen dependent 4. Coronary artery disease 5. Hypomagnesemia 6. Crohn's disease 7. Former smoker Plan: 1. Postop day #2 transcarotid artery revascularization 2. Continue aspirin, Plavix and atorvastatin 3. Replace magnesium per protocol 4. Encourage ambulation 5. May discontinue Sudafed on discharge 6. Rest of medical management per primary medical team 7. Patient is cleared from vascular surgery for discharge. Follow-up with Dr. Mena in 2 weeks. Thank you for this consultation, we will sign off at this time. The impression and plan of care has been dictated as directed. Dr. Parada I performed a history and examination of this patient, discussed the same with the dictator. I agree with the dictator's note ,documented as a scribe. Any additional findings or plans will be noted.
--- NOTE | 2024-05-12 13:04 | P.DS ---
Providers Date of admission: 05/03/24 11:42 Expected date of discharge: 05/12/24 Attending physician: Sidney Brink Consults: 05/03/24 12:10 Consult Physician Routine Consulting Provider: Nik Lobo Consult Reason/Comments: TIA Do you want consulting provider notified?: Yes 05/04/24 07:57 Consult Physician Routine Consulting Provider: Dari Champagne Consult Reason/Comments: metabolic acidosis and CKD Do you want consulting provider notified?: Yes 05/04/24 18:07 Consult Physician Routine Consulting Provider: Jeanne Mena Consult Reason/Comments: Symptomatic right ICA stenosis Do you want consulting provider notified?: Yes 05/11/24 09:59 Consult Physician Routine Consulting Provider: Victorino Curiel Consult Reason/Comments: r/o BPH Do you want consulting provider notified?: Yes Primary care physician: [facility] Course: 74 year old M with PMH of Crohns disease status post bowel resection, COPD on 2L home O2, CKD stage III, HTN, persistent hypoMag presented to the ED for LUE numbness and lip numbness for the past 3 days. In the ED he underwent extensive evaluation. BP 134/70, HR 67, T 97.5F, RR 18, 99% on RA. CBC, Coag panel, CMP si gnificant for RBC 3.87, Hg 11, Hct 35.7, Cl 118, bicarb 10, BUN 36, Cr 2.30, alb 3.4. Mag 1.1. EKG sinus rhythm. CT brain negative. CXR negative. Admitted for further workup and management. Magnesium replaced and Nephrology consulted. Underwent CVA workup. Neurology consulted. Brain MRI acute CVA involving right frontal/parietal region. Echo EF 55-60% negative bubble study. Carotid doppler 50-69% stenosis R carotid bifurcation and < 50% left carotid. Neck MRA 63% right carotid bifurcation stenosis. Vascular consulted, underwent TCAR on 05/10. He was on Levophed for a short period of time post operatively which was successfully weaned off. Retained urine on 05/10 last night requiring straight cath. Urinating freely and started on Flomax. 05/12 Patient was seen and examined. No complaints. Looking forward to going home. Mag is 1.6 which will be replaced prior to discharge. Discharge Plan: Prescription for ASA, Plavix, Flomax and Amlodipine sent to pharmacy. Follow up with PCP within 1-2 days, Nephrology within 1 week, Urology and Vascular surgery within 2 weeks of discharge. General: non toxic, no distress, appears at stated age Derm: warm, dry Head: atraumatic, normocephalic, symmetric Eyes: EOMI, no lid lag, anicteric sclera Mouth: no lip lesion, mucus membranes moist Cardiovascular: S1S2 reg, no murmur Lungs: CTA bilateral, no rhonchi, no rales, no accessory muscle use Ext: no gross muscle atrophy, no edema, no contractures Neuro: no focal neuro deficits Psych: Alert, oriented, appropriate affect Discharge Diagnosis: Acute CVA Right Carotid artery stenosis Urinary retention HypoMag COPD on 2L home O2 History of Crohn's disease CKD stage III This complex discharge took 35 minutes to complete. Patient Condition at Discharge: Stable Plan - Discharge Summary Discharge Rx Participant: No New Discharge Prescriptions: New RX: Aspirin 81 mg PO DAILY #30 tab RX: Clopidogrel [Plavix] 75 mg PO DAILY #30 tab RX: Tamsulosin [Flomax] 0.4 mg PO PC-BRKFST #30 cap RX: amLODIPine [Norvasc] 2.5 mg PO DAILY #30 tab Continue RX: Calcium Carbonate 500 mg PO QID RX: Sodium Zirconium Cyclosilicate [Lokelma] 5 gm PO DAILY RX: Empagliflozin [Jardiance] 10 mg PO DAILY RX: Escitalopram [Lexapro] 20 mg PO DAILY Magnesium Glycinate 200mg 600 mg PO DAILY RX: Fluticasone Propion/Salmeterol [Wixela 100-50 Inhub] 1 puff INHALATION RT-BID RX: Mesalamine [Asacol Hd] 800 mg PO TID RX: Albuterol Inhaler [Ventolin Hfa Inhaler] 2 puff INHALATION RT-Q4H PRN PRN Reason: Shortness Of Breath RX: Cyanocobalamin (Vitamin B-12) [Vitamin B-12] 1,000 mcg PO DAILY RX: Cholecalciferol [Vitamin D3 (25 Mcg = 1000 Iu)] 50 mcg PO BID RX: Cholestyramine/Aspartame [Cholestyramine Light Packet] 4 gm PO TID- W/MEALS RX: Metoprolol Succinate (ER) [Toprol XL] 25 mg PO DAILY RX: Atorvastatin [Lipitor] 40 mg PO HS RX: Ipratropium-Albuterol Nebulize [Duoneb 0.5 mg-3 mg/3 ml Soln] 3 ml INHALATION RT-Q4H Discontinued Pantoprazole Sodium [Protonix] 20 mg PO BID Discharge Medication List RX: Cholecalciferol [Vitamin D3 (25 Mcg = 1000 Iu)] 50 mcg PO BID 05/06/21 [History] RX: Cyanocobalamin (Vitamin B-12) [Vitamin B-12] 1,000 mcg PO DAILY 05/06/21 [History] RX: Cholestyramine/Aspartame [Cholestyramine Light Packet] 4 gm PO TID-W/MEALS 10/15/22 [History] RX: Calcium Carbonate 500 mg PO QID 10/13/23 [History] RX: Empagliflozin [Jardiance] 10 mg PO DAILY 02/17/24 [History] RX: Sodium Zirconium Cyclosilicate [Lokelma] 5 gm PO DAILY 02/17/24 [History] Magnesium Glycinate 200mg 600 mg PO DAILY 03/31/24 [History] RX: Albuterol Inhaler [Ventolin Hfa Inhaler] 2 puff INHALATION RT-Q4H PRN 03/31/24 [History] RX: Atorvastatin [Lipitor] 40 mg PO HS 03/31/24 [History] RX: Escitalopram [Lexapro] 20 mg PO DAILY 03/31/24 [History] RX: Fluticasone Propion/Salmeterol [Wixela 100-50 Inhub] 1 puff INHALATION RT- BID 03/31/24 [History] RX: Ipratropium-Albuterol Nebulize [Duoneb 0.5 mg-3 mg/3 ml Soln] 3 ml INHALATION RT-Q4H 03/31/24 [History] RX: Mesalamine [Asacol Hd] 800 mg PO TID 03/31/24 [History] RX: Metoprolol Succinate (ER) [Toprol XL] 25 mg PO DAILY 03/31/24 [History] RX: Aspirin 81 mg PO DAILY #30 tab 05/12/24 [Rx] RX: Clopidogrel [Plavix] 75 mg PO DAILY #30 tab 05/12/24 [Rx] RX: Tamsulosin [Flomax] 0.4 mg PO PC-BRKFST #30 cap 05/12/24 [Rx] RX: amLODIPine [Norvasc] 2.5 mg PO DAILY #30 tab 05/12/24 [Rx] Follow up Appointment(s)/Referral(s): Dari Champagne MD [STAFF PHYSICIAN] - 1 Week Mendez Green MD [STAFF PHYSICIAN] - 2 Weeks Jeanne Mena DO [STAFF PHYSICIAN] - 2 Weeks [facility] [Primary Care Provider] - 1-2 days Patient Instructions/Handouts: Clopidogrel (By mouth) Activity/Diet/Wound Care/Special Instructions: No strenuous activity or heavy lifting greater than 10 pounds. May shower tomorrow but no tub bathing or soaking. Watch incision site for infection including redness, drainage, or temperature greater than 100.4. If you notice he symptoms please call office Discharge Disposition: HOME SELF-CARE
[2024-05-12 16:50] VITALS: BP 141/73; PULSE 60; TEMP 98
== END 2024-05-12 17:01 | disposition home or self-care (01) | DRG 34 ==
LOC: EC 08:11 → 3SCARD 11:42 → 2SICU 05-10 13:52 → 3SCARD 05-12 00:31
PROVIDERS: ADMIT Student in an Organized Health Care Education/Training Program; ATTEND Student in an Organized Health Care Education/Training Program
PROC: 3E033XZ Introduction of Vasopressor into Peripheral Vein, Percutaneous Approach (ICD-10-PCS; 2024-05-10)
PROC: 06HY33Z Insertion of Infusion Device into Lower Vein, Percutaneous Approach (ICD-10-PCS; 2024-05-10)
PROC: 037K3DZ Dilation of Right Internal Carotid Artery with Intraluminal Device, Percutaneous Approach (ICD-10-PCS; principal; 2024-05-10 07:30)
DX: I63.89 Other cerebral infarction (principal); N17.0 Acute kidney failure with tubular necrosis; E87.20 Acidosis, unspecified; J96.11 Chronic respiratory failure with hypoxia; K50.90 Crohn's disease, unspecified, without complications; E11.22 Type 2 diabetes mellitus with diabetic chronic kidney disease; E78.5 Hyperlipidemia, unspecified; N18.32 Chronic kidney disease, stage 3b; F41.9 Anxiety disorder, unspecified; G89.29 Other chronic pain; I12.9 Hypertensive chronic kidney disease with stage 1 through stage 4 chronic kidney disease, or unspecified chronic kidney disease; I25.10 Atherosclerotic heart disease of native coronary artery without angina pectoris; E83.42 Hypomagnesemia; E86.1 Hypovolemia; J44.9 Chronic obstructive pulmonary disease, unspecified; K21.9 Gastro-esophageal reflux disease without esophagitis; I25.82 Chronic total occlusion of coronary artery; I95.1 Orthostatic hypotension; Z99.81 Dependence on supplemental oxygen; R29.701 NIHSS score 1; I65.21 Occlusion and stenosis of right carotid artery; N40.1 Benign prostatic hyperplasia with lower urinary tract symptoms; Z79.02 Long term (current) use of antithrombotics/antiplatelets; Z79.82 Long term (current) use of aspirin; Z79.84 Long term (current) use of oral hypoglycemic drugs; Z79.899 Other long term (current) drug therapy; Z87.891 Personal history of nicotine dependence
CPT/HCPCS: 36415; 37215; 70450; 70549; 70551; 71046; 80048; 80053; 80061; 81001; 83036; 83735; 83970; 84484; 85025; 85027; 85610; 85730; 93005; 93306; 93880; 94640; 96365; 96366; 99285

== ENCOUNTER 2024-05-26 07:22 | Inpatient (IN) | payer OTHER, MEDICARE ==
--- NOTE | 2024-05-26 07:51 | ED ---
General Adult HPI - General Chief complaint: Weakness Stated complaint: SOB Time Seen by Provider: 05/26/24 07:26 Source: patient, RN notes reviewed, old records reviewed Mode of arrival: wheelchair Limitations: no limitations - History of Present Illness Initial comments: 74-year-old male presenting for generalized weakness. Patient states he has had issues with hypomagnesemia and is currently receiving biweekly infusions. He states that he has worsening weakness and was unable to make his appointment. He also reports chronic dyspnea. Denies chest pain or abdominal pain. He has had ongoing diarrhea as well as very poor appetite as well. No fever. - Related Data Home Medications Medication Instructions Recorded Confirmed Cholecalciferol [Vitamin D3 (25 50 mcg PO BID 05/06/21 05/03/24 Mcg = 1000 Iu)] Cyanocobalamin (Vitamin B-12) 1,000 mcg PO DAILY 05/06/21 05/03/24 [Vitamin B-12] Cholestyramine/Aspartame 4 gm PO TID-W/MEALS 10/15/22 05/03/24 [Cholestyramine Light Packet] Calcium Carbonate 500 mg PO QID 10/13/23 05/03/24 Empagliflozin [Jardiance] 10 mg PO DAILY 02/17/24 05/03/24 Sodium Zirconium Cyclosilicate 5 gm PO DAILY 02/17/24 05/03/24 [Lokelma] Albuterol Inhaler [Ventolin Hfa 2 puff INHALATION RT-Q4H PRN 03/31/24 05/03/24 Inhaler] Atorvastatin [Lipitor] 40 mg PO HS 03/31/24 05/03/24 Escitalopram [Lexapro] 20 mg PO DAILY 03/31/24 05/03/24 Fluticasone Propion/Salmeterol 1 puff INHALATION RT-BID 03/31/24 05/03/24 [Wixela 100-50 Inhub] Ipratropium-Albuterol Nebulize 3 ml INHALATION RT-Q4H 03/31/24 05/03/24 [Duoneb 0.5 mg-3 mg/3 ml Soln] Magnesium Glycinate 200mg 600 mg PO DAILY 03/31/24 05/03/24 Mesalamine [Asacol Hd] 800 mg PO TID 03/31/24 05/03/24 Metoprolol Succinate (ER) [Toprol 25 mg PO DAILY 03/31/24 05/03/24 XL] Previous Rx's Medication Instructions Recorded Aspirin 81 mg PO DAILY #30 tab 05/12/24 Clopidogrel [Plavix] 75 mg PO DAILY #30 tab 05/12/24 Tamsulosin [Flomax] 0.4 mg PO PC-BRKFST #30 cap 05/12/24 amLODIPine [Norvasc] 2.5 mg PO DAILY #30 tab 05/12/24 Allergies Allergy/AdvReac Type Severity Reaction Status Date / Time etodolac AdvReac Abdominal Verified 05/26/24 07:29 Pain hydrochlorothiazide AdvReac dizziness Verified 05/26/24 07:29 [From Prinzide] & cramps lisinopril [From Prinzide] AdvReac dizziness Verified 05/26/24 07:29 & cramps vardenafil [From Levitra] AdvReac Disoriented Verified 05/26/24 07:29 Review of Systems ROS Statement: Those systems with pertinent positive or pertinent negative responses have been documented in the HPI. ROS Other: All systems not noted in ROS Statement are negative. Past Medical History Past Medical History: GERD/Reflux, Hypertension, Osteoarthritis (OA), Renal Disease Additional Past Medical History / Comment(s): BOWEL RESECTION X2 DUE TO INFECTION, CROHNS, IBS, HERNIATED DISC, COVID JUL 2021, HOSPTALIZED AUG 2021 W ITH RASH & TOE WOUND - HEALED, KIDNEY DISEASE, SOB W/ HOME O2, LOW MAGNESIUM W/ WEEKLY INFUSIONS History of Any Multi-Drug Resistant Organisms: None Reported Past Surgical History: Appendectomy, Bowel Resection Additional Past Surgical History / Comment(s): "35 YEARS AGO- BOWEL RESECTION AND ILEOCECAL VALVE REMOVED WITH 1 FOOT OF INTESTINE, HAD 2ND BOWEL RESECTION 3 YEARS AGO Past Anesthesia/Blood Transfusion Reactions: No Reported Reaction Past Psychological History: Anxiety Smoking Status: Former smoker Past Alcohol Use History: None Reported Past Drug Use History: None Reported - Past Family History Mother Family Medical History: Coronary Artery Disease (CAD), Diabetes Mellitus Additional Family Medical History / Comment(s): NIDDM Father Family Medical History: Coronary Artery Disease (CAD), Diabetes Mellitus, Hypertension General Exam Limitations: no limitations General appearance: alert, in no apparent distress Head exam: Present: atraumatic, normocephalic Eye exam: Present: normal appearance, PERRL ENT exam: Present: mucous membranes dry Neck exam: Present: normal inspection Respiratory exam: Present: decreased breath sounds. Absent: respiratory distress Cardiovascular Exam: Present: regular rate, normal rhythm GI/Abdominal exam: Present: soft. Absent: distended, tenderness, guarding Extremities exam: Present: normal inspection, normal capillary refill. Absent: pedal edema Neurological exam: Present: alert, oriented X3. Absent: CN II-XII intact, motor sensory deficit Psychiatric exam: Present: normal affect, normal mood Skin exam: Present: warm, dry, intact. Absent: cyanosis, diaphoretic Course Vital Signs 05/26/24 05/26/24 07:25 08:29 Temperature 97.8 F Pulse Rate 78 58 L Respiratory 18 18 Rate Blood Pressure 96/54 137/66 O2 Sat by Pulse 96 99 Oximetry Medical Decision Making - Medical Decision Making Was pt. sent in by a medical professional or institution (, [facility], [employer], urgent ca re, hospital, or fdc...) When possible be specific @ -No Did you speak to anyone other than the patient for history (EMS, parent, family, police, friend...)? What history was obtained from this source @ -No Did you review nursing and triage notes (agree or disagree)? Why? @ -I reviewed and agree with nursing and triage notes Were old charts reviewed (outside hosp., previous admission, EMS record, old EKG, old radiological studies, urgent care reports/EKG's, fdc records)? Report findings @ -No old charts were reviewed Differential Weakness: Hypoglycemia, shock, sepsis, hyponatremia, anemia, infection, MA, ETOH, adverse medicine reaction, overdose, stroke, this is not meant to be an all-inclusive list. EKG interpreted by me (3pts min.). @ -Sinus rhythm rate of 61, SC interval 184, QRS duration 110, QTc [address] segment elevation. X-rays interpreted by me (1pt min.). @ -[Chest x-ray negative for acute cardiopulmonary findings CT interpreted by me (1pt min.). @ -None done U/S interpreted by me (1pt. min.). @ -None done What testing was considered but not performed or refused? (CT, X-rays, U/S, labs)? Why? @ -None What meds were considered but not given or refused? Why? @ -None Did you discuss the management of the patient with other professionals (pr ofessionals i.e. , PA, [employer], lab, RT, psych nurse, social security assessor, manager rental, teacher, security public safety officer, shoe parts caser)? Give summary @Case discussed with [facility], Dr. Brink, and Dr. Welsh covering for nephrology Was smoking cessation discussed for >3mins.? @ -No Was critical care preformed (if so, how long)? @ -[Yes, 35 minutes Were there social determinants of health that impacted care today? How? (Homelessness, low income, unemployed, alcoholism, drug addiction, transportation, low edu. Level, literacy, decrease access to med. care, [facility], rehab)? @ -No Was there de-escalation of care discussed even if they declined (Discuss DNR or withdrawal of care, Hospice)? DNR status @ -No What co-morbidities impacted this encounter? (DM, HTN, Smoking, COPD, CAD, Cancer, CVA, ARF, Chemo, Hep., AIDS, mental health diagnosis, sleep apnea, morbid obesity)? @ -Chronic kidney disease Was patient admitted / discharged? Hospital course, mention meds given and route, prescriptions, significant lab abnormalities, going to OR and other pertinent info. @ -74-year-old male presenting for evaluation of weakness. Patient has chronic issues with hypomagnesemia. His magnesium today is 1.6 which is quite good for this patient. Patient's initial potassium is 7.5 with slight hemolysis this is repeated. This is 8 on redraw. He has a bicarb of 9. Slightly worsening kidney function. He is given treatment of hyperkalemia and will be admitted to [facility]. Case discussed with Dr. Welsh covering for nephrology. He will evaluate the patient in the emergency department. Redraw of BMP is ordered for 1200 Undiagnosed new problem with uncertain prognosis? @ -No Drug Therapy requiring intensive monitoring for toxicity (Heparin, Nitro, Insulin, Cardizem)? @ -No Were any procedures done? @ -No Diagnosis/symptom? @ -Hyperkalemia Acute, or Chronic, or Acute on Chronic? @ -Acute Uncomplicated (without systemic symptoms) or Complicated (systemic symptoms)? @ -Default Side effects of treatment? @ -No Exacerbation, Progression, or Severe Exacerbation? @ -No Poses a threat to life or bodily function? How? (Chest pain, USA, MA, pneumonia, PE, COPD, DKA, ARF, appy, cholecystitis, CVA, Diverticulitis, Homicidal, Suicidal, threat to staff... and all critical care pts) @ -Yes, hyperkalemia, bradycardia dysrhythmia - Lab Data Result diagrams: 05/26/24 08:01 05/26/24 09:11 Lab Results 05/26/24 05/26/24 05/26/24 Range/Units 08:01 08:01 08:01 WBC 9.3 (3.8-10.6) k/uL RBC 4.30 (4.30-5.90) m/uL Hgb 12.2 L (13.0-17.5) gm/dL Hct 39.9 (39.0-53.0) % MCV 92.9 (80.0-100.0) fL MCH 28.5 (25.0-35.0) pg MCHC 30.7 L (31.0-37.0) g/dL RDW 15.2 (11.5-15.5) % Plt Count 336 (150-450) k/uL MPV 8.0 Neutrophils % 69 % Lymphocytes % 17 % Monocytes % 7 % Eosinophils % 5 % Basophils % 1 % Neutrophils # 6.4 (1.3-7.7) k/uL Lymphocytes # 1.6 (1.0-4.8) k/uL Monocytes # 0.6 (0-1.0) k/uL Eosinophils # 0.4 (0-0.7) k/uL Basophils # 0.1 (0-0.2) k/uL Hypochromasia Moderate PT 10.6 (10.0-12.5) sec INR 1.0 (<1.2) APTT 23.7 (22.0-30.0) sec Sodium 139 (137-145) mmol/L Potassium 7.5 H* (3.5-5.1) mmol/L Chloride 119 H (98-107) mmol/L Carbon Dioxide 11 L (22-30) mmol/L Anion Gap 9 mmol/L BUN 28 H (9-20) mg/dL Creatinine 2.42 H (0.66-1.25) mg/dL Est GFR (CKD-EPI)AfAm 29 (>60 ml/min/1.73 sqM) Est GFR (CKD-EPI)NonAf 25 (>60 ml/min/1.73 sqM) Glucose 104 H (74-99) mg/dL POC Glucose (mg/dL) (70-110) mg/dL POC Glu Stacker Straightener ID Plasma Lactic Acid Elmer (0.7-2.0) mmol/L Calcium 10.0 (8.4-10.2) mg/dL Magnesium 1.6 (1.6-2.3) mg/dL Total Bilirubin 0.5 (0.2-1.3) mg/dL AST 25 (17-59) U/L ALT 18 (4-49) U/L Alkaline Phosphatase 60 (38-126) U/L Total Protein 7.1 (6.3-8.2) g/dL Albumin 4.2 (3.5-5.0) g/dL 05/26/24 05/26/24 05/26/24 Range/Units 08:01 09:11 10:14 WBC (3.8-10.6) k/uL RBC (4.30-5.90) m/uL Hgb (13.0-17.5) gm/dL Hct (39.0-53.0) % MCV (80.0-100.0) fL MCH (25.0-35.0) pg MCHC (31.0-37.0) g/dL RDW (11.5-15.5) % Plt Count (150-450) k/uL MPV Neutrophils % % Lymphocytes % % Monocytes % % Eosinophils % % Basophils % % Neutrophils # (1.3-7.7) k/uL Lymphocytes # (1.0-4.8) k/uL Monocytes # (0-1.0) k/uL Eosinophils # (0-0.7) k/uL Basophils # (0-0.2) k/uL Hypochromasia PT (10.0-12.5) sec INR (<1.2) APTT (22.0-30.0) sec Sodium 138 (137-145) mmol/L Potassium 8.0 H* (3.5-5.1) mmol/L Chloride 119 H (98-107) mmol/L Carbon Dioxide 9 L* (22-30) mmol/L Anion Gap 10 mmol/L BUN 29 H (9-20) mg/dL Creatinine 2.38 H (0.66-1.25) mg/dL Est GFR (CKD-EPI)AfAm 30 (>60 ml/min/1.73 sqM) Est GFR (CKD-EPI)NonAf 26 (>60 ml/min/1.73 sqM) Glucose 100 H (74-99) mg/dL POC Glucose (mg/dL) 85 (70-110) mg/dL POC Glu Stacker Straightener ID Kaye Stuart Plasma Lactic Acid Elmer 0.5 L (0.7-2.0) mmol/L Calcium 9.8 (8.4-10.2) mg/dL Magnesium (1.6-2.3) mg/dL Total Bilirubin (0.2-1.3) mg/dL AST (17-59) U/L ALT (4-49) U/L Alkaline Phosphatase (38-126) U/L Total Protein (6.3-8.2) g/dL Albumin (3.5-5.0) g/dL Critical Care Time Critical Care Time: Yes Total Critical Care Time: 35 Disposition Clinical Impression: Hyperkalemia Disposition: ADMITTED IP TO THIS HOSP Condition: Serious Is patient prescribed a controlled substance at d/c from ED?: No Referrals: [facility],Clinic [Primary Care Provider] - 1-2 days Time of Disposition: 10:20
[2024-05-26 08:14] LABS: Basophils # (A) 0.1 k/uL (0-0.2); Basophils % (A) 1 %; Eosinophils # (A) 0.4 k/uL (0-0.7); Eosinophils % (A) 5 %; HCT 39.9 % (39.0-53.0); HGB 12.2 gm/dL (13.0-17.5); Hypochromasia Moderate; Lymphocytes # (A) 1.6 k/uL (1.0-4.8); Lymphocytes % (A) 17 %; MCH 28.5 pg (25.0-35.0); MCHC 30.7 g/dL (31.0-37.0); MCV 92.9 fL (80.0-100.0); Monocytes # (A) 0.6 k/uL (0-1.0); Monocytes % (A) 7 %; Neutrophils # (A) 6.4 k/uL (1.3-7.7); Neutrophils % (A) 69 %; Platelet Count 336 k/uL (150-450); RDW 15.2 % (11.5-15.5); WBC 9.3 k/uL (3.8-10.6)
[2024-05-26 08:22] LABS: Partial Thromboplastin Time 23.7 sec (22.0-30.0); Prothrombin Time 10.6 sec (10.0-12.5)
[2024-05-26 08:27] LABS: ALT 18 U/L (4-49); African American GFR (CKD) 29 (>60 ml/min/1.73 sqM); Albumin 4.2 g/dL (3.5-5.0); Anion Gap 9 mmol/L; Blood Urea Nitrogen 28 mg/dL (9-20); Carbon Dioxide 11 mmol/L (22-30); Chloride 119 mmol/L (98-107); Glucose 104 mg/dL (74-99); Non-African American GFR(CKD) 25 (>60 ml/min/1.73 sqM); Sodium 139 mmol/L (137-145); Total Bilirubin 0.5 mg/dL (0.2-1.3); Total Protein 7.1 g/dL (6.3-8.2)
[2024-05-26] MEDS: SODIUM CHLORIDE 0.9% 500 ML 500 ML IV ONE ×2 (08:48→10:50)
--- NOTE | 2024-05-26 08:51 | XR ---
EXAMINATION TYPE: XR chest 2V DATE OF EXAM: 05/26/2024 COMPARISON: 05/03/2024 HISTORY: 74-year-old male with weakness, body ache, shortness of breath TECHNIQUE: PA and lateral views FINDINGS: The cardiomediastinal silhouette, aorta, and pulmonary vasculature are within normal limits. And mild interstitial prominence is unchanged. Mild hyperinflation. Otherwise, lungs and pleural spaces are c lear. IMPRESSION: Possible underlying COPD. Otherwise, no acute process seen. [facility], , 05/26/2024 8:48 AM
[2024-05-26 09:51] LABS: African American GFR (CKD) 30 (>60 ml/min/1.73 sqM); Anion Gap 10 mmol/L; Blood Urea Nitrogen 29 mg/dL (9-20); Calcium 9.8 mg/dL (8.4-10.2); Chloride 119 mmol/L (98-107); Glucose 100 mg/dL (74-99); Non-African American GFR(CKD) 26 (>60 ml/min/1.73 sqM); Sodium 138 mmol/L (137-145)
[2024-05-26 09:51] LABS: AST 25 U/L (17-59); Alkaline Phosphatase 60 U/L (38-126); Magnesium 1.6 mg/dL (1.6-2.3); Potassium 7.5 mmol/L (3.5-5.1)
[2024-05-26 09:52] LABS: Carbon Dioxide 9 mmol/L (22-30)
[2024-05-26 10:15] LABS: Glucose,Whole Blood 85 mg/dL (70-110)
[2024-05-26] MEDS ORDERED: NALOXONE 0.4 MG/ML 1 ML VIAL IV PRN (10:16)
[2024-05-26] MEDS: CALCIUM GLUCONATE IN NACL 1 GM in SALINE 1 100ML.BAG IVPB ONE ×2 (10:19→13:22)
[2024-05-26] MEDS: INSULIN REGULAR 100 UNIT/ML VIAL (IV) IV ONE ×2 (10:20→13:22)
[2024-05-26] MEDS: DEXTROSE 50% SYRINGE 50 ML IVP ONE (10:20)
[2024-05-26] MEDS: SODIUM BICARB 8.4% 50 ML SYR (1 MEQ/ML) IV ONE (10:20)
[2024-05-26] MEDS: SODIUM ZIRCONIUM CYCLOSILICATE 10 GM PACKET PO ONE ×2 (10:21→13:17)
--- NOTE | 2024-05-26 11:20 | US ---
EXAMINATION TYPE: US kidneys/renal and bladder DATE OF EXAM: 05/26/2024 COMPARISON: US 10/13/2023 CLINICAL INDICATION: Male, 74 years old with history of SUN TECHNIQUE: Grayscale and color Doppler imaging of the bilateral kidneys and urinary bladder: FINDINGS: EXAM MEASUREMENTS: Right Kidney: 11.5 x 5.8 x 6.0 cm Left Kidney: 11.4 x 5.4 x 5.6 cm Right Kidney: No hydronephrosis or masses seen Left Kidney: No hydronephrosis or masses seen Bladder: Trabeculations along the posterior bladder wall. Bilateral Jets seen: Yes IMPRESSION: No hydronephrosis. Trabeculations along the posterior bladder wall which can be seen with chronic hyp ertrophy. Correlate for any bladder outlet obstruction symptoms. [facility], , 05/26/2024 11:18 AM
[2024-05-26] MEDS: SODIUM CHLORIDE 0.9% 1,000 ML IV SCH (11:42)
[2024-05-26] MEDS ORDERED: ALBUTEROL NEBULIZED 2.5 MG/3 ML INHALATION PRN (12:14)
--- NOTE | 2024-05-26 12:35 | P.NPCON ---
History of Present Illness - Reason for Consult acute renal failure, chronic renal failure, hyperkalemia - History of Present Illness Reason for consultation: Acute kidney injury on chronic kidney disease and hyperkalemia History of present illness: Patient is a 74-year-old male seen in renal consultation for acute kidney injury on chronic kidney disease and hyperkalemia. Patient was seen and examined in the emergency room. Patient came to the hospital due to generalized weakness. Patient describes the weakness as diffuse and all over his body. Patient states he has chronic hypomagnesemia and takes oral magnesium supplementation and also received IV magnesium twice weekly. Patient felt that his magnesium level was low. It was noted to be 1.6 on admission. However patient was noted to be h yperkalemic with a potassium level of 8. Patient states he does take 5 g of Lokelma daily. He does admit to loose bowel movements for the last 2 days. Patient states he has been having 5-6 bowel movements daily. He denies history of diabetes or coronary artery disease. Patient does have right carotid artery stenosis and underwent revascularization with stenting May 10, 2024. Patient has chronic kidney disease stage IIIb with baseline creatinine in the range of 1.8-2 secondary to IgA nephropathy. Denies gross hematuria or dysuria. No chest pain or shortness of breath. No fever or chills. Vital signs are stable. General: No acute distress. HEENT: Head exam is unremarkable. LUNGS: No audible rhonchi or wheezes. HEART: Rate and Rhythm are regular. ABDOMEN: Nontender. EXTREMITITES: No edema. Past Medical History Past Medical History: GERD/Reflux, Hypertension, Osteoarthritis (OA), Renal Disease Additional Past Medical History / Comment(s): BOWEL RESECTION X2 DUE TO INFECTION, CROHNS, IBS, HERNIATED DISC, COVID JUL 2021, HOSPTALIZED AUG 2021 WITH RASH & TOE WOUND - HEALED, KIDNEY DISEASE, SOB W/ HOME O2, LOW MAGNESIUM W/ WEEKLY INFUSIONS History of Any Multi-Drug Resistant Organisms: None Reported Past Surgical History: Appendectomy, Bowel Resection Additional Past Surgical History / Comment(s): "35 YEARS AGO- BOWEL RESECTION AN D ILEOCECAL VALVE REMOVED WITH 1 FOOT OF INTESTINE, HAD 2ND BOWEL RESECTION 3 YEARS AGO Past Anesthesia/Blood Transfusion Reactions: No Reported Reaction Past Psychological History: Anxiety Smoking Status: Former smoker Past Alcohol Use History: None Reported Past Drug Use History: None Reported - Past Family History Mother Family Medical History: Coronary Artery Disease (CAD), Diabetes Mellitus Additional Family Medical History / Comment(s): NIDDM Father Family Medical History: Coronary Artery Disease (CAD), Diabetes Mellitus, Hypertension Medications and Allergies Home Medications Medication Instructions Recorded Confirmed Type Cholecalciferol [Vitamin D3 (25 50 mcg PO BID 05/06/21 05/26/24 History Mcg = 1000 Iu)] Cyanocobalamin (Vitamin B-12) 1,000 mcg PO DAILY 05/06/21 05/26/24 History [Vitamin B-12] Cholestyramine/Aspartame 4 gm PO TID-W/MEALS 10/15/22 05/26/24 History [Cholestyramine Light Packet] Calcium Carbonate 500 mg PO QID 10/13/23 05/26/24 History Empagliflozin [Jardiance] 10 mg PO DAILY 02/17/24 05/26/24 History Sodium Zirconium Cyclosilicate 5 gm PO DAILY 02/17/24 05/26/24 History [Lokelma] Albuterol Inhaler [Ventolin Hfa 2 puff INHALATION RT-Q4H PRN 03/31/24 05/26/24 History Inhaler] Atorvastatin [Lipitor] 40 mg PO HS 03/31/24 05/26/24 History Escitalopram [Lexapro] 20 mg PO DAILY 03/31/24 05/26/24 History Fluticasone Propion/Salmeterol 1 puff INHALATION RT-BID 03/31/24 05/26/24 History [Wixela 100-50 Inhub] Ipratropium-Albuterol Nebulize 3 ml INHALATION RT-Q4H 03/31/24 05/26/24 History [Duoneb 0.5 mg-3 mg/3 ml Soln] Mesalamine [Asacol Hd] 800 mg PO TID 03/31/24 05/26/24 History Metoprolol Succinate (ER) [Toprol 25 mg PO DAILY 03/31/24 05/26/24 History XL] Aspirin 81 mg PO DAILY #30 tab 05/12/24 05/26/24 Rx Clopidogrel [Plavix] 75 mg PO DAILY #30 tab 05/12/24 05/26/24 Rx Tamsulosin [Flomax] 0.4 mg PO PC-BRKFST #30 cap 05/12/24 05/26/24 Rx amLODIPine [Norvasc] 2.5 mg PO DAILY #30 tab 05/12/24 05/26/24 Rx Allergies Allergy/AdvReac Type Severity Reaction Status Date / Time etodolac AdvReac Abdominal Verified 05/26/24 11:21 Pain hydrochlorothiazide AdvReac dizziness Verified 05/26/24 11:21 [From Prinzide] & cramps lisinopril [From Prinzide] AdvReac dizziness Verified 05/26/24 11:21 & cramps vardenafil [From Levitra] AdvReac Disoriented Verified 05/26/24 11:21 Physical Exam Vitals: Vital Signs Temp Pulse Resp BP Pulse Ox 05/26/24 08:29 58 L 18 137/66 99 05/26/24 07:25 97.8 F 78 18 96/54 96 Intake and Output 05/25/24 05/26/24 05/26/24 22:59 06:59 14:59 Other: Weight 100.698 kg Results - Lab Results Most recent lab results Calcium 9.8 mg/dL (8.4-10.2) 05/26/24 09:11 Magnesium 1.6 mg/dL (1.6-2.3) 05/26/24 08:01 05/26/24 08:01 05/26/24 09:11 Assessment and Plan Plan: Assessment: 1. Acute kidney injury secondary to vasomotor nephropathy from hypovolemia from GI losses. Creatinine 2.38. No hydronephrosis noted on kidney ultrasound. 2. Chronic kidney disease stage IIIb with baseline creatinine 1.8-2 secondary to IgA nephropathy. 3. Hyperkalemia secondary to acute kidney injury, metabolic acidosis. Has chronic hyperkalemia and takes Lokelma outpatient. 4. Metabolic acidosis secondary to acute kidney injury and GI losses. 5. History of CVA. 6. Recent right carotid artery revascularization. 7. Chronic hypomagnesemia from GI losses. Patient received IV magnesium outpatient twice weekly and is also maintained on oral magnesium supplementation. Plan: Change IV fluids to isotonic sodium bicarb drip. Patient received IV calcium gluconate, 10 units IV regular insulin with an amp of D50, 1 amp bicarb IV push and also 10 g of Lokelma this morning. Add Lokelma 10 g 3 times daily. I will also give him 2 more amps of sodium bicarb IV push. Insert Mena catheter. Strict I's and O's. Check UA. Avoid nephrotoxins. Follow-up repeat labs. If no improvement in potassium level, will need renal replacement therapy Thank you for the consultation. I will continue to follow the patient with you during his hospital stay.
[2024-05-26 12:38] LABS: African American GFR (CKD) 31 (>60 ml/min/1.73 sqM); Anion Gap 5 mmol/L; Blood Urea Nitrogen 29 mg/dL (9-20); Calcium 9.6 mg/dL (8.4-10.2); Carbon Dioxide 10 mmol/L (22-30); Chloride 123 mmol/L (98-107); Glucose 55 mg/dL (74-99); Non-African American GFR(CKD) 27 (>60 ml/min/1.73 sqM); Sodium 138 mmol/L (137-145)
[2024-05-26 12:44] LABS: Potassium 6.6 mmol/L (3.5-5.1)
[2024-05-26 13:07] LABS: Glucose,Whole Blood 83 mg/dL (70-110)
[2024-05-26] MEDS: DEXTROSE 50% SYRINGE 50 ML IVP STA (13:16)
[2024-05-26] MEDS: SODIUM BICARB 8.4% 50 ML SYR (1 MEQ/ML) IV STA ×2 (13:17→16:46)
[2024-05-26 13:28] LABS: Appearance,Urine Clear (Clear); Bilirubin,Urine Negative (Negative); Blood,Urine Trace (Negative); Color,Urine Colorless; Glucose,Urine (UA) 1+ (Negative); Hyaline Casts,Urine 24 /lpf (0-2); Ketones,Urine Negative (Negative); Leukocyte Esterase,Urine Negative (Negative); Mucus,Urine Rare /hpf; Nitrite,Urine Negative (Negative); PH, Urine 5.5 (5.0-8.0); Protein,Urine Trace (Negative); RBC,Urine 1 /hpf (0-5); Specific Gravity,Urine 1.014 (1.001-1.035); Urobilinogen,Urine <2.0 mg/dL (<2.0); WBC,Urine 1 /hpf (0-5)
--- NOTE | 2024-05-26 14:04 | P.HPIM ---
History of Present Illness H&P Date: 05/26/24 Patient is a 74-year-old male with history of CKD stage III, chronic hypokalemia, chronic hypomagnesemia, Crohn's disease status post bowel resection, COPD on 2 L, hypertension presenting with persistent weakness. Patient claims that over the last 2 days he has been feeling extremely weak, and thought his magnesium may be low. He claims that he has some chills but denies any fevers. Denies any chest pain, shortness of breath, abdominal pain, urinary or bowel complaints. He claims that he is still able to make urine, he still has persistent diarrhea. Of note, patient recently had acute CVA involving the right frontal/parietal region, noted to have right carotid stenosis and und erwent TCAR on 05/10. In the ED, temperature was 97.8, pulse 78, respiratory rate 18, blood pressure 96/54, saturating at 96% on 1.5 L. Initial laboratory workup showed WBC of 9.3, hemoglobin 12.2, potassium 7.5 up trended to 8, bicarb 11 down trended to 9, creatinine 2.42, magnesium 1.6. Nephrology urgently consulted. Patient given medication for hyperkalemia, potassium down trended to 6.6. Patient being admitted for further hyperkalemia workup. Pertinent positives and negatives as discussed in HPI, a complete review of systems was performed and all other systems are negative. Patient seen and examined at bedside. Vital signs reviewed General: nontoxic, no distress, appears at stated age Derm: warm, dry Head: atraumatic, normocephalic, symmetric Eyes: EOMI, no lid lag, anicteric sclera, pupils equal round reactive to light ENT: Nose and ears atraumatic Neck: No thyromegaly, supple Mouth: no lip lesion, mucus membranes moist Cardiovascular: S1S2 reg, no murmur, no edema Lungs: clear to auscultation bilateral, no rhonchi, no rales, no wheeze, no accessory muscle use, supplemental oxygen Abdominal: soft, nontender to palpation, no guarding, no appreciable organomegaly Ext: no gross muscle atrophy, muscle strength muscle strength 5 out of 5 in all 4 extremities, no contractures Neuro: CN II-XII grossly intact Psych: Alert, oriented, appropriate affect Assessment/Plan: Active: Severe hyperkalemia Acute kidney injury on chronic kidney disease stage III Metabolic acidosis, non-anion gap -Discussed management with nephrology, patient started on bicarb drip at 100 cc an hour, also getting further amps of bicarb, Lokelma 10 mg 3 times daily, bladder scan now, IV insulin and dextrose, as well as calcium gluconate. -Repeat BMP at 3 PM -Continue telemetry monitoring -Hypokalemia, hypomagnesemia, non-anion gap metabolic acidosis likely related to GI losses Crohn's disease -Mesalamine has been implicated to hyperkalemia, hold for now Chronic: BPH COPD, not in exacerbation Dyslipidemia Dyslipidemia Recent CVA Carotid artery stenosis status post TCAR The patient is admitted with an anticipated greater than 2 midnight stay as inpatient status for evaluation of hyperkalemia. Surrogate decision-maker: Daughter CODE STATUS: Full code DVT prophylaxis: Subcu heparin Anticipated discharge date: Pending clinical course Anticipated discharge place: Pending clinical course A total of 65 minutes was spent on the care of this complex patient more than 50% of the time was spent in counseling and care coordination. Past Medical History Past Medical History: GERD/Reflux, Hypertension, Osteoarthritis (OA), Renal D isease Additional Past Medical History / Comment(s): BOWEL RESECTION X2 DUE TO INFECTION, CROHNS, IBS, HERNIATED DISC, COVID JUL 2021, HOSPTALIZED AUG 2021 WITH RASH & TOE WOUND - HEALED, KIDNEY DISEASE, SOB W/ HOME O2, LOW MAGNESIUM W/ WEEKLY INFUSIONS History of Any Multi-Drug Resistant Organisms: None Reported Past Surgical History: Appendectomy, Bowel Resection Additional Past Surgical History / Comment(s): "35 YEARS AGO- BOWEL RESECTION AND ILEOCECAL VALVE REMOVED WITH 1 FOOT OF INTESTINE, HAD 2ND BOWEL RESECTION 3 YEARS AGO Past Anesthesia/Blood Transfusion Reactions: No Reported Reaction Past Psychological History: Anxiety Smoking Status: Former smoker Past Alcohol Use History: None Reported Past Drug Use History: None Reported - Past Family History Mother Family Medical History: Coronary Artery Disease (CAD), Diabetes Mellitus Additional Family Medical History / Comment(s): NIDDM Father Family Medical History: Coronary Artery Disease (CAD), Diabetes Mellitus, Hypertension Medications and Allergies Home Medications Medication Instructions Recorded Confirmed Type Cholecalciferol [Vitamin D3 (25 50 mcg PO BID 05/06/21 05/26/24 History Mcg = 1000 Iu)] Cyanocobalamin (Vitamin B-12) 1,000 mcg PO DAILY 05/06/21 05/26/24 History [Vitamin B-12] Cholestyramine/Aspartame 4 gm PO TID-W/MEALS 10/15/22 05/26/24 History [Cholestyramine Light Packet] Calcium Carbonate 500 mg PO QID 10/13/23 05/26/24 History Empagliflozin [Jardiance] 10 mg PO DAILY 02/17/24 05/26/24 History Sodium Zirconium Cyclosilicate 5 gm PO DAILY 02/17/24 05/26/24 History [Lokelma] Albuterol Inhaler [Ventolin Hfa 2 puff INHALATION RT-Q4H PRN 03/31/24 05/26/24 History Inhaler] Atorvastatin [Lipitor] 40 mg PO HS 03/31/24 05/26/24 History Escitalopram [Lexapro] 20 mg PO DAILY 03/31/24 05/26/24 History Fluticasone Propion/Salmeterol 1 puff INHALATION RT-BID 03/31/24 05/26/24 Hi story [Wixela 100-50 Inhub] Ipratropium-Albuterol Nebulize 3 ml INHALATION RT-Q4H 03/31/24 05/26/24 History [Duoneb 0.5 mg-3 mg/3 ml Soln] Mesalamine [Asacol Hd] 800 mg PO TID 03/31/24 05/26/24 History Metoprolol Succinate (ER) [Toprol 25 mg PO DAILY 03/31/24 05/26/24 History XL] Aspirin 81 mg PO DAILY #30 tab 05/12/24 05/26/24 Rx Clopidogrel [Plavix] 75 mg PO DAILY #30 tab 05/12/24 05/26/24 Rx Tamsulosin [Flomax] 0.4 mg PO PC-BRKFST #30 cap 05/12/24 05/26/24 Rx amLODIPine [Norvasc] 2.5 mg PO DAILY #30 tab 05/12/24 05/26/24 Rx Allergies Allergy/AdvReac Type Severity Reaction Status Date / Time etodolac AdvReac Abdominal Verified 05/26/24 11:21 Pain hydrochlorothiazide AdvReac dizziness Verified 05/26/24 11:21 [From Prinzide] & cramps lisinopril [From Prinzide] AdvReac dizziness Verified 05/26/24 11:21 & cramps vardenafil [From Levitra] AdvReac Disoriented Verified 05/26/24 11:21 Physical Exam Vitals: Vital Signs Temp Pulse Resp BP Pulse Ox 05/26/24 13:00 84 16 172/79 99 05/26/24 08:29 58 L 18 137/66 99 05/26/24 07:25 97.8 F 78 18 96/54 96 Intake and Output 05/25/24 05/26/24 05/26/24 22:59 06:59 14:59 Other: Weight 100.698 kg Results CBC & Chem 7: 05/26/24 08:01 05/26/24 11:13 Labs: Abnormal Lab Results - Last 24 Hours (Table) 05/26/24 05/26/24 05/26/24 Range/Units 08:01 08:01 08:01 Hgb 12.2 L (13.0-17.5) gm/dL MCHC 30.7 L (31.0-37.0) g/dL Potassium 7.5 H* (3.5-5.1) mmol/L Chloride 119 H (98-107) mmol/L Carbon Dioxide 11 L (22-30) mmol/L BUN 28 H (9-20) mg/dL Creatinine 2.42 H (0.66-1.25) mg/dL Glucose 104 H (74-99) mg/dL Plasma Lactic Acid Elmer 0.5 L (0.7-2.0) mmol/L Urine Protein (Negative) Urine Glucose (UA) (Negative) Urine Blood (Negative) Hyaline Casts (0-2) /lpf Urine Mucus (None) /hpf 05/26/24 05/26/24 05/26/24 Range/Units 09:11 11:13 11:45 Hgb (13.0-17.5) gm/dL MCHC (31.0-37.0) g/dL Potassium 8.0 H* 6.6 H* (3.5-5.1) mmol/L Chloride 119 H 123 H (98-107) mmol/L Carbon Dioxide 9 L* 10 L (22-30) mmol/L BUN 29 H 29 H (9-20) mg/dL Creatinine 2.38 H 2.28 H (0.66-1.25) mg/dL Glucose 100 H 55 L (74-99) mg/dL Plasma Lactic Acid Elmer (0.7-2.0) mmol/L Urine Protein Trace H (Negative) Urine Glucose (UA) 1+ H (Negative) Urine Blood Trace H (Negative) Hyaline Casts 24 H (0-2) /lpf Urine Mucus Rare H (None) /hpf
[2024-05-26] MEDS: DEXTROSE 5% IN WATER 1,000 ML with SODIUM BICARB (1 MEQ/ML) 150 ML IV SCH (14:06)
[2024-05-26 15:11] LABS: African American GFR (CKD) 33 (>60 ml/min/1.73 sqM); Anion Gap 7 mmol/L; Blood Urea Nitrogen 28 mg/dL (9-20); Calcium 9.5 mg/dL (8.4-10.2); Carbon Dioxide 13 mmol/L (22-30); Chloride 121 mmol/L (98-107); Glucose 125 mg/dL (74-99); Non-African American GFR(CKD) 28 (>60 ml/min/1.73 sqM); Potassium 5.6 mmol/L (3.5-5.1); Sodium 141 mmol/L (137-145)
[2024-05-26 15:20] LABS: Glucose,Whole Blood 133 mg/dL (70-110)
[2024-05-26] MEDS: SODIUM ZIRCONIUM CYCLOSILICATE 10 GM PACKET PO SCH (15:55)
[2024-05-26] MEDS: IPRATROPIUM-ALBUTEROL 3 ML NEB INHALATION SCH (18:17)
[2024-05-26] MEDS: ATORVASTATIN 40 MG TAB PO SCH (20:50)
[2024-05-26 20:59] LABS: African American GFR (CKD) 33 (>60 ml/min/1.73 sqM); Anion Gap 5 mmol/L; Blood Urea Nitrogen 31 mg/dL (9-20); Calcium 8.8 mg/dL (8.4-10.2); Carbon Dioxide 19 mmol/L (22-30); Chloride 115 mmol/L (98-107); Glucose 117 mg/dL (74-99); Non-African American GFR(CKD) 29 (>60 ml/min/1.73 sqM); Potassium 5.2 mmol/L (3.5-5.1); Sodium 139 mmol/L (137-145)
[2024-05-26] MEDS: SYMBICORT 80-4.5 MCG INHALER INHALATION SCH (21:10)
[2024-05-27 04:51] VITALS: RESP 18
[2024-05-27] MEDS: IPRATROPIUM-ALBUTEROL 3 ML NEB INHALATION SCH (08:08)
[2024-05-27] MEDS: ESCITALOPRAM 20 MG TAB PO SCH (08:46)
[2024-05-27] MEDS: TAMSULOSIN 0.4 MG CAP.ER.24H PO SCH (08:46)
[2024-05-27] MEDS: METOPROLOL SUCCINATE (ER) 25 MG TAB.ER.24H PO SCH (08:46)
[2024-05-27] MEDS: CLOPIDOGREL 75 MG TAB PO SCH (08:46)
[2024-05-27 08:54] LABS: African American GFR (CKD) 42 (>60 ml/min/1.73 sqM); Anion Gap 6 mmol/L; Blood Urea Nitrogen 26 mg/dL (9-20); Calcium 8.5 mg/dL (8.4-10.2); Carbon Dioxide 26 mmol/L (22-30); Chloride 106 mmol/L (98-107); Glucose 99 mg/dL (74-99); Magnesium 1.2 mg/dL (1.6-2.3); Non-African American GFR(CKD) 37 (>60 ml/min/1.73 sqM); Potassium 4.5 mmol/L (3.5-5.1); Sodium 138 mmol/L (137-145)
--- NOTE | 2024-05-27 10:46 | P.PN ---
Subjective Patient is seen in follow-up for acute kidney injury on chronic kidney disease and hyperkalemia. Renal function better. Potassium level also normal. Magnesium on the lower end. No active complaints. Vital signs are stable. General: No acute distress. HEENT: Head exam is unremarkable. LUNGS: No audible rhonchi or wheezes. HEART: Rate and Rhythm are regular. ABDOMEN: Nontender. EXTREMITITES: No edema. Objective - Vital Signs Vital signs: Vital Signs Temp 98.2 F 05/27/24 08:45 Pulse 74 05/27/24 08:45 Resp 18 05/27/24 08:45 BP 163/84 05/27/24 08:45 Pulse Ox 98 05/27/24 08:45 FiO2 Intake & Output 05/26/24 05/27/24 05/27/24 18:59 06:59 18:59 Output Total 400 Balance -400 Weight 100.698 kg Output: Urine 400 - Labs CBC & Chem 7: 05/26/24 08:01 05/27/24 07:37 Labs: Abnormal Lab Results - Last 24 Hours (Table) 05/26/24 05/26/24 05/26/24 Range/Units 11:13 11:45 14:38 Potassium 6.6 H* 5.6 H (3.5-5.1) mmol/L Chloride 123 H 121 H (98-107) mmol/L Carbon Dioxide 10 L 13 L (22-30) mmol/L BUN 29 H 28 H (9-20) mg/dL Creatinine 2.28 H 2.19 H (0.66-1.25) mg/dL Glucose 55 L 125 H (74-99) mg/dL POC Glucose (mg/dL) (70-110) mg/dL Magnesium (1.6-2.3) mg/dL Urine Protein Trace H (Negative) Urine Glucose (UA) 1+ H (Negative) Urine Blood Trace H (Negative) Hyaline Casts 24 H (0-2) /lpf Urine Mucus Rare H (None) /hpf 05/26/24 05/26/24 05/27/24 Range/Units 15:19 19:50 07:37 Potassium 5.2 H (3.5-5.1) mmol/L Chloride 115 H (98-107) mmol/L Carbon Dioxide 19 L (22-30) mmol/L BUN 31 H 26 H (9-20) mg/dL Creatinine 2.17 H 1.77 H (0.66-1.25) mg/dL Glucose 117 H (74-99) mg/dL POC Glucose (mg/dL) 133 H (70-110) mg/dL Magnesium 1.2 L (1.6-2.3) mg/dL Urine Protein (Negative) Urine Glucose (UA) (Negative) Urine Blood (Negative) Hyaline Casts (0-2) /lpf Urine Mucus (None) /hpf Assessment and Plan Plan: Assessment: 1. Acute kidney injury secondary to vasomotor nephropathy from hypovolemia from GI losses. Creatinine 2.38 on admission and is 1.77 today. No hydronephrosis noted on kidney ultrasound. UA fairly benign. 2. Chronic kidney disease stage IIIb with baseline creatinine 1.8-2 secondary to IgA nephropathy. 3. Hyperkalemia secondary to acute kidney injury, metabolic acidosis. Has chronic hyperkalemia and takes Lokelma outpatient. Improved with medical management. 4. Metabolic acidosis secondary to acute kidney injury and GI losses. 5. History of CVA. 6. Recent right carotid artery revascularization. 7. Chronic hypomagnesemia from GI losses. Patient received IV magnesium outpatient twice weekly and is also maintained on oral magnesium supplementation. Plan: Hep-Lock IV fluids. 3 g IV magnesium sulfate today. Add p.o. bicarb once daily. Also advised patient to maintain low potassium diet upon discharge. Patient states he was eating a lot of spaghetti sauce which is high in potassium. Patient to take Lokelma 10 g once daily upon discharge. Continue with magnesium supplementation orally as well as IV infusions outpatient. Repeat BMP and magnesium level 2 to 3 days postdischarge. Follow-up outpatient 1 week.
[2024-05-27] MEDS: MAGNESIUM SULFATE-D5W PMX 1 GM in DEXTROSE/WATER 1 100ML.BAG IVPB SCH (11:17)
[2024-05-27] MEDS: SODIUM BICARBONATE TAB 650 MG TAB PO SCH (11:17)
[2024-05-27 13:11] VITALS: BP 146/74; PULSE 73; TEMP 98
--- NOTE | 2024-05-27 13:17 | P.DS ---
Providers Date of admission: 05/26/24 10:16 Expected date of discharge: 05/27/24 Attending physician: Sidney Brink Consults: 05/26/24 10:16 Consult Physician Urgent Consulting Provider: Ho Welsh Consult Reason/Comments: HyperK+ Do you want consulting provider notified?: Already Contacted Primary care physician: [facility] Hospital Course: Discharge Diagnosis: Severe hyperkalemia Acute kidney injury on chronic kidney disease stage III Metabolic acidosis, non-anion gap Crohn's disease Hospital Course: 74-year-old male with history of CKD stage III, chronic hypokalemia, chronic hypomagnesemia, Crohn's disease status post bowel resection, COPD on 2 L, hypertension presenting with persistent weakness. In the ED, temperature was 97.8, pulse 78, respiratory rate 18, blood pressure 96/54, saturating at 96% on 1.5 L. Initial laboratory workup showed WBC of 9.3, hemoglobin 12.2, potassium 7.5 up trended to 8, bicarb 11 down trended to 9, creatinine 2.42, magnesium 1.6. Nephrology urgently consulted. Patient given medication for hyperkalemia, potassium down trended to 6.6. Patient being admitted for further hyperkalemia workup. Potassium down trended to 4.5, renal function improved as well. Nephrology recommending increasing Lokelri outpatient, follow-up with nephrology and repeat blood work in 3 days. Patient seen and examined at bedside. Vital signs reviewed and stable. General: Nontoxic, no distress, appears at stated age Derm: Warm, dry Head: Atraumatic, normocephalic, symmetric Eyes: EOMI, no lid lag, anicteric sclera Mouth: No lip lesion, mucus membranes moist Cardiovascular: S1S2 reg, no murmur Lungs: CTA bilateral, no rhonchi, no rales, no accessory muscle use Abdominal: Soft, nontender to palpation, no guarding, no appreciable organomegaly Ext: No gross muscle atrophy, no edema, no contractures Neuro: CN II-XI grossly intact, no focal neuro deficits Psych: Alert, oriented, appropriate affect A total of 32 minutes of time were spent preparing this complex discharge summary. Patient was discharged on 05/27/2024 1226. Patient Condition at Discharge: Stable Plan - Discharge Summary New Discharge Prescriptions: New Sodium Bicarbonate Tab 650 mg PO DAILY #90 tab Continue Calcium Carbonate 500 mg PO QID Empagliflozin [Jardiance] 10 mg PO DAILY Escitalopram [Lexapro] 20 mg PO DAILY Fluticasone Propion/Salmeterol [Wixela 100-50 Inhub] 1 puff INHALATION RT-BID Mesalamine [Asacol Hd] 800 mg PO TID Albuterol Inhaler [Ventolin Hfa Inhaler] 2 puff INHALATION RT-Q4H PRN PRN Reason: Shortness Of Breath Aspirin 81 mg PO DAILY #30 tab Clopidogrel [Plavix] 75 mg PO DAILY #30 tab Cyanocobalamin (Vitamin B-12) [Vitamin B-12] 1,000 mcg PO DAILY Cholecalciferol [Vitamin D3 (25 Mcg = 1000 Iu)] 50 mcg PO BID Cholestyramine/Aspartame [Cholestyramine Light Packet] 4 gm PO TID-W/MEALS Metoprolol Succinate (ER) [Toprol XL] 25 mg PO DAILY Atorvastatin [Lipitor] 40 mg PO HS Ipratropium-Albuterol Nebulize [Duoneb 0.5 mg-3 mg/3 ml Soln] 3 ml INHALATION RT-Q4H Tamsulosin [Flomax] 0.4 mg PO PC-BRKFST #30 cap amLODIPine [Norvasc] 2.5 mg PO DAILY #30 tab Changed Sodium Zirconium Cyclosilicate [Lokelma] 10 gm PO DAILY #90 packet Discharge Medication List Cholecalciferol [Vitamin D3 (25 Mcg = 1000 Iu)] 50 mcg PO BID 05/06/21 [History] Cyanocobalamin (Vitamin B-12) [Vitamin B-12] 1,000 mcg PO DAILY 05/06/21 [Histor y] Cholestyramine/Aspartame [Cholestyramine Light Packet] 4 gm PO TID-W/MEALS 10/15/22 [History] Calcium Carbonate 500 mg PO QID 10/13/23 [History] Empagliflozin [Jardiance] 10 mg PO DAILY 02/17/24 [History] Albuterol Inhaler [Ventolin Hfa Inhaler] 2 puff INHALATION RT-Q4H PRN 03/31/24 [History] Atorvastatin [Lipitor] 40 mg PO HS 03/31/24 [History] Escitalopram [Lexapro] 20 mg PO DAILY 03/31/24 [History] Fluticasone Propion/Salmeterol [Wixela 100-50 Inhub] 1 puff INHALATION RT-BID 03/31/24 [History] Ipratropium-Albuterol Nebulize [Duoneb 0.5 mg-3 mg/3 ml Soln] 3 ml INHALATION RT-Q4H 03/31/24 [History] Mesalamine [Asacol Hd] 800 mg PO TID 03/31/24 [History] Metoprolol Succinate (ER) [Toprol XL] 25 mg PO DAILY 03/31/24 [History] Aspirin 81 mg PO DAILY #30 tab 05/12/24 [Rx] Clopidogrel [Plavix] 75 mg PO DAILY #30 tab 05/12/24 [Rx] Tamsulosin [Flomax] 0.4 mg PO PC-BRKFST #30 cap 05/12/24 [Rx] amLODIPine [Norvasc] 2.5 mg PO DAILY #30 tab 05/12/24 [Rx] Sodium Bicarbonate Tab 650 mg PO DAILY #90 tab 05/27/24 [Rx] Sodium Zirconium Cyclosilicate [Lokelma] 10 gm PO DAILY #90 packet 05/27/24 [Rx] Follow up Appointment(s)/Referral(s): Dari Champagne MD [STAFF PHYSICIAN] - 1 Week [facility]inic [Primary Care Provider] - 1-2 days Ambulatory/Diagnostic Orders: Basic Metabolic Panel [LAB.AMB] Time Frame: 3 Days, Location: None Selected Magnesium [LAB.AMB] Time Frame: 3 Days, Location: None Selected Patient Instructions/Handouts: Hyperkalemia (DC) Activity/Diet/Wound Care/Special Instructions: Please see PCP and nephrology. Discharge Disposition: HOME SELF-CARE
== END 2024-05-27 15:07 | disposition home or self-care (01) | DRG 640 ==
LOC: EC 07:22 → 3SCARD 10:16
PROVIDERS: ADMIT Student in an Organized Health Care Education/Training Program; ATTEND Student in an Organized Health Care Education/Training Program
DX: E87.5 Hyperkalemia (principal); N17.0 Acute kidney failure with tubular necrosis; K50.90 Crohn's disease, unspecified, without complications; E87.20 Acidosis, unspecified; Z99.81 Dependence on supplemental oxygen; N18.32 Chronic kidney disease, stage 3b; J44.9 Chronic obstructive pulmonary disease, unspecified; I12.9 Hypertensive chronic kidney disease with stage 1 through stage 4 chronic kidney disease, or unspecified chronic kidney disease; R19.7 Diarrhea, unspecified; E78.5 Hyperlipidemia, unspecified; N40.0 Benign prostatic hyperplasia without lower urinary tract symptoms; E86.1 Hypovolemia; E83.42 Hypomagnesemia; Z87.891 Personal history of nicotine dependence; Z86.16 Personal history of COVID-19; Z79.82 Long term (current) use of aspirin; Z79.02 Long term (current) use of antithrombotics/antiplatelets; Z79.899 Other long term (current) drug therapy; Z79.51 Long term (current) use of inhaled steroids; Z79.84 Long term (current) use of oral hypoglycemic drugs; Z90.49 Acquired absence of other specified parts of digestive tract; Z86.73 Personal history of transient ischemic attack (TIA), and cerebral infarction without residual deficits
CPT/HCPCS: 36415; 71046; 76770; 80048; 80053; 81001; 83605; 83735; 85025; 85610; 85730; 93005; 94640; 96361; 96365; 96366; 96368; 96375; 96376; 99291

== ENCOUNTER 2024-06-02 09:17 | Emergency (ER) | payer OTHER ==
--- NOTE | 2024-06-02 10:00 | ED ---
Skin/Abscess/FB HPI - General Chief complaint: Skin/Abscess/Foreign Body Stated complaint: L arm pain/swelling/redness Time Seen by Provider: 06/02/24 09:35 Source: patient, RN notes reviewed Mode of arrival: wheelchair Limitations: no limitations - History of Present Illness Initial comments: 74-year-old male presents to the emergency department with chief complaint of right upper extremity pain. He was recently hospitalized for carotid stent procedure. While hospitalized he had an IV in his left antecubital fossa in which he was receiving magnesium infusions. He reports that they discontinued the IV due to leaking. Associated symptoms include tenderness warmth pain radiating medial aspect upper arm. Denies numbness and tingling to his fingers, denies fever. - Related Data Home Medications Medication Instructions Recorded Confirmed Cholecalciferol [Vitamin D3 (25 50 mcg PO BID 05/06/21 06/02/24 Mcg = 1000 Iu)] Cyanocobalamin (Vitamin B-12) 1,000 mcg PO DAILY 05/06/21 06/02/24 [Vitamin B-12] Cholestyramine/Aspartame 4 gm PO TID-W/MEALS 10/15/22 06/02/24 [Cholestyramine Light Packet] Calcium Carbonate 500 mg PO QID 10/13/23 06/02/24 Empagliflozin [Jardiance] 10 mg PO DAILY 02/17/24 06/02/24 Albuterol Inhaler [Ventolin Hfa 2 puff INHALATION RT-Q4H PRN 03/31/24 06/02/24 Inhaler] Atorvastatin [Lipitor] 40 mg PO DAILY 03/31/24 06/02/24 Escitalopram [Lexapro] 20 mg PO DAILY 03/31/24 06/02/24 Fluticasone Propion/Salmeterol 1 puff INHALATION RT-BID 03/31/24 06/02/24 [Wixela 100-50 Inhub] Ipratropium-Albuterol Nebulize 3 ml INHALATION RT-Q4H 03/31/24 06/02/24 [Duoneb 0.5 mg-3 mg/3 ml Soln] Mesalamine [Asacol Hd] 800 mg PO TID 03/31/24 06/02/24 Metoprolol Succinate (ER) [Toprol 25 mg PO DAILY 03/31/24 06/02/24 XL] Previous Rx's Medication Instructions Recorded Clopidogrel [Plavix] 75 mg PO DAILY #30 tab 05/12/24 Tamsulosin [Flomax] 0.4 mg PO PC-BRKFST #30 cap 05/12/24 amLODIPine [Norvasc] 2.5 mg PO DAILY #30 tab 05/12/24 Sodium Bicarbonate Tab 650 mg PO DAILY #90 tab 05/27/24 Sodium Zirconium Cyclosilicate 10 gm PO DAILY #90 packet 05/27/24 [Lokelma] Apixaban [Eliquis Starter Pack 5 - 10 mg PO DIRECTED 30 Days 06/02/24 (for VTE)] #1 each Allergies Allergy/AdvReac Type Severity Reaction Status Date / Time etodolac AdvReac Abdominal Verified 06/02/24 11:50 Pain hydrochlorothiazide AdvReac dizziness Verified 06/02/24 11:50 [From Prinzide] & cramps lisinopril [From Prinzide] AdvReac dizziness Verified 06/02/24 11:50 & cramps vardenafil [From Levitra] AdvReac Disoriented Verified 06/02/24 11:50 Review of Systems ROS Statement: Those systems with pertinent positive or pertinent negative responses have been documented in the HPI. ROS Other: All systems not noted in ROS Statement are negative. Past Medical History Past Medical History: GERD/Reflux, Hypertension, Osteoarthritis (OA), Renal Disease Additional Past Medical History / Comment(s): BOWEL RESECTION X2 DUE TO IN FECTION, CROHNS, IBS, HERNIATED DISC, COVID JUL 2021, HOSPTALIZED AUG 2021 WITH RASH & TOE WOUND - HEALED, KIDNEY DISEASE, SOB W/ HOME O2, LOW MAGNESIUM W/ WEEKLY INFUSIONS History of Any Multi-Drug Resistant Organisms: None Reported Past Surgical History: Appendectomy, Bowel Resection Additional Past Surgical History / Comment(s): "35 YEARS AGO- BOWEL RESECTION AND ILEOCECAL VALVE REMOVED WITH 1 FOOT OF INTESTINE, HAD 2ND BOWEL RESECTION 3 YEARS AGO Past Anesthesia/Blood Transfusion Reactions: No Reported Reaction Past Psychological History: Anxiety Smoking Status: Former smoker - Past Family History Mother Family Medical History: Coronary Artery Disease (CAD), Diabetes Mellitus Additional Family Medical History / Comment(s): NIDDM Father Family Medical History: Coronary Artery Disease (CAD), Diabetes Mellitus, Hypertension General Exam Limitations: no limitations General appearance: alert, in no apparent distress Head exam: Present: atraumatic, normocephalic, normal inspection Eye exam: Present: normal appearance, PERRL, EOMI. Absent: scleral icterus, conjunctival injection, periorbital swelling ENT exam: Present: normal exam, mucous membranes moist Neck exam: Present: normal inspection. Absent: tenderness, meningismus, lymphadenopathy Respiratory exam: Present: normal lung sounds bilaterally. Absent: respiratory distress, wheezes, rales, rhonchi, stridor Cardiovascular Exam: Present: regular rate, normal rhythm, normal heart sounds. Absent: systolic murmur, diastolic murmur, rubs, gallop, clicks GI/Abdominal exam: Present: soft, normal bowel sounds. Absent: distended, tenderness, guarding, rebound, rigid Extremities exam: Present: normal inspection, full ROM, normal capillary refill. Absent: tenderness, pedal edema, joint swelling, calf tenderness Left Forearm Wrist exam: Present: tenderness (Left anticubital fossa), swelling, erythema Back exam: Present: normal inspection Neurological exam: Present: alert, oriented X3, CN II-XII intact Psychiatric exam: Present: normal affect, normal mood Skin exam: Present: warm, dry, intact, normal color. Absent: rash Course Vital Signs 06/02/24 06/02/24 06/02/24 09:26 11:48 13:23 Temperature 97.8 F 97.9 F Pulse Rate 62 61 63 Respiratory 18 18 16 Rate Blood Pressure 130/75 102/87 147/82 O2 Sat by Pulse 100 98 99 Oximetry Medical Decision Making - Medical Decision Making Was pt. sent in by a medical professional or institution (, PA, CIGARETTE FILTER INSPECTOR, urgent care, hospital, or [facility]...) When possible be specific @ -No Did you speak to anyone other than the patient for history (EMS, parent, family, police, friend...)? What history was obtained from this source @ -No Did you review nursing and triage notes (agree or disagree)? Why? @ -I reviewed and agree with nursing and triage notes Were old charts reviewed (outside hosp., previous admission, EMS record, old EKG, old radiological studies, urgent care reports/EKG's, [facility] records)? Report findings @ -No old charts were reviewed Differential Diagnosis (chest pain, altered mental status, abdominal pain women, abdominal pain men, vaginal bleeding, weakness, fever, dyspnea, syncope, headache, dizziness, GI bleed, back pain, seizure, CVA, palpatations, mental health, musculoskeletal)? @ -DVT, cellulitis, superficial thrombophlebitis EKG interpreted by me (3pts min.). @ -None X-rays interpreted by me (1pt min.). @ -None done CT interpreted by me (1pt min.). @ -None done U/S interpreted by me (1pt. min.). @ -Ultrasound left upper extremity showing evidence of DVT and superficial thrombus What testing was considered but not performed or refused? (CT, X-rays, U/S, labs)? Why? @ -None What meds were considered but not given or refused? Why? @ -None Did you discuss the management of the patient with other professionals (professionals i.e. , PA, CIGARETTE FILTER INSPECTOR, lab, RT, psych nurse, social media editor, relations mgr, teacher, senior escrow officer, case loader operator)? Give summary @ -[facility] physician for admission with consult to vascular Was smoking cessation discussed for >3mins.? @ -No Was critical care preformed (if so, how long)? @ -No Were there social determinants of health that impacted care today? How? (Homelessness, low income, unemployed, alcoholism, drug addiction, transpor tation, low edu. Level, literacy, decrease access to med. care, snf, rehab)? @ -No Was there de-escalation of care discussed even if they declined (Discuss DNR or withdrawal of care, Hospice)? DNR status @ -No What co-morbidities impacted this encounter? (DM, HTN, Smoking, COPD, CAD, Cancer, CVA, ARF, Chemo, Hep., AIDS, mental health diagnosis, sleep apnea, morbid obesity)? @ -None Was patient admitted / discharged? Hospital course, mention meds given and route, prescriptions, significant lab abnormalities, going to OR and other pertinent info. @ -Admitted patient presented for left arm pain, swelling redness. Patient found to have DVT along with superficial thrombus. Patient was started on high- dose heparin. Patient will be admitted with vascular consult. Undiagnosed new problem with uncertain prognosis? @ -No Drug Therapy requiring intensive monitoring for toxicity (Heparin, Nitro, Insulin, Cardizem)? @ -Heparin Were any procedures done? @ -No Diagnosis/symptom? @ -Left upper extremity DVT Acute, or Chronic, or Acute on Chronic? @ -Acute Uncomplicated (without systemic symptoms) or Complicated (systemic symptoms)? @ -Complicated Side effects of treatment? @ -No Exacerbation, Progression, or Severe Exacerbation? @ -No Poses a threat to life or bodily function? How? (Chest pain, [place], [place], pneumonia, PE, COPD, DKA, ARF, appy, cholecystitis, CVA, Diverticulitis, Homicidal, Caren cidal, threat to staff... and all critical care pts) @ Yes DVT may lead to PE - Lab Data Result diagrams: 06/02/24 11:48 06/02/24 11:48 Disposition Clinical Impression: Left upper extremity deep vein thrombosis Disposition: ADMITTED IP TO THIS HOSP Condition: Fair Time of Disposition: 11:27
--- NOTE | 2024-06-02 11:14 | US ---
EXAMINATION TYPE: US venous doppler duplex UE LT DATE OF EXAM: 06/02/2024 COMPARISON: NONE CLINICAL INDICATION: Male, 74 years old with history of Swelling; swelling, redness, and pain in left arm near antecubital fossa. Pt had IV there recently TECHNIQUE: Grayscale, color Doppler and spectral Doppler imaging of the upper extremity. SIDE PERFORMED: Left FINDINGS: Left Arm: Echoes seen in one of the brachial veins in the lower portion. Echoes also seen in the ceph alic vein near elbow. Basilic vein slightly limited due to pt positioning Grayscale, color doppler, spectral doppler imaging performed of the deep veins of the upper extremiti es. IMPRESSION: 1. Deep vein thrombosis of the brachial vein 2. Superficial thrombophlebitis of the basilic and cephalic veins. 3. Findings communicated to Dr in ER on 06/02/2024 11:[address] Richard Pelaez. [facility], , 06/02/2024 11:12 AM
[2024-06-02] MEDS ORDERED: HEPARIN SODIUM 1,000 UN/ML (10ML VL) IV PRN (11:17)
[2024-06-02] MEDS ORDERED: NALOXONE 0.4 MG/ML 1 ML VIAL IV PRN (11:27)
[2024-06-02] MEDS ORDERED: ACETAMINOPHEN TAB 325 MG TAB PO PRN (11:27)
[2024-06-02] MEDS: HEPARIN SODIUM 1,000 UN/ML (10ML VL) IV ONE (11:43)
[2024-06-02] MEDS: HEPARIN SOD,PORK IN 0.45% NACL 25,000 UNIT in 0.45% NACL 1 250ML.BAG IV SCH (11:44)
[2024-06-02 12:03] LABS: Basophils # (A) 0.1 k/uL (0-0.2); Basophils % (A) 1 %; Eosinophils # (A) 0.4 k/uL (0-0.7); Eosinophils % (A) 3 %; HCT 38.5 % (39.0-53.0); HGB 11.4 gm/dL (13.0-17.5); Hypochromasia Moderate; Lymphocytes # (A) 1.7 k/uL (1.0-4.8); Lymphocytes % (A) 14 %; MCH 27.6 pg (25.0-35.0); MCHC 29.6 g/dL (31.0-37.0); MCV 93.1 fL (80.0-100.0); Mean Platelet Volume 7.7; Monocytes # (A) 0.7 k/uL (0-1.0); Monocytes % (A) 6 %; Neutrophils # (A) 8.9 k/uL (1.3-7.7); Neutrophils % (A) 74 %; Platelet Count 260 k/uL (150-450); RBC 4.13 m/uL (4.30-5.90); RDW 15.1 % (11.5-15.5); WBC 11.9 k/uL (3.8-10.6)
[2024-06-02 12:07] LABS: ALT 23 U/L (4-49); AST 28 U/L (17-59); African American GFR (CKD) 37 (>60 ml/min/1.73 sqM); Albumin 4.2 g/dL (3.5-5.0); Alkaline Phosphatase 71 U/L (38-126); Anion Gap 10 mmol/L; Blood Urea Nitrogen 24 mg/dL (9-20); Calcium 8.9 mg/dL (8.4-10.2); Carbon Dioxide 13 mmol/L (22-30); Chloride 113 mmol/L (98-107); Glucose 102 mg/dL (74-99); Magnesium 1.8 mg/dL (1.6-2.3); Non-African American GFR(CKD) 32 (>60 ml/min/1.73 sqM); Potassium 4.9 mmol/L (3.5-5.1); Sodium 136 mmol/L (137-145); Total Bilirubin 0.5 mg/dL (0.2-1.3); Total Protein 7.1 g/dL (6.3-8.2)
[2024-06-02 12:26] LABS: INR 0.9 (<1.2); Partial Thromboplastin Time 24.2 sec (22.0-30.0); Prothrombin Time 10.4 sec (10.0-12.5)
--- NOTE | 2024-06-02 12:31 | P.GSCN ---
History of Present Illness Consult date: 06/02/24 Reason for Consult: Left upper extremity DVT Requesting physician: Jose Alicia History of present illness: This a pleasant 74-year-old male with a history of symptomatic carotid stenosis who was recently hospitalized and underwent right TCAR on 05/10/2024. Patient also has history of chronic hypomagnesemia and this is being followed by his PCP and gets infusions. During his last hospitalization he had an IV in the left antecubital space. Patient was scheduled to have magnesium transfusion today and during that time he pointed out that he has had some left upper extremity swelling, tenderness, and redness. They contacted his physician who recommended he come to the emergency department for further evaluation. He had a upper extremity venous duplex that reported a deep vein thrombosis in the brachial ve in with superficial thrombus in the basilic and cephalic veins. He states otherwise he is healing well from his carotid surgery. Denies any chest pain, states he has some chronic shortness of breath. Denies any fevers or chills. No lower extremity swelling. Review of Systems A 14 point review systems was completed all pertinent positives and negatives as stated in the HPI. Past Medical History Past Medical History: GERD/Reflux, Hypertension, Osteoarthritis (OA), Renal Disease Additional Past Medical History / Comment(s): BOWEL RESECTION X2 DUE TO INFECTION, CROHNS, IBS, HERNIATED DISC, COVID JUL 2021, HOSPTALIZED AUG 2021 WITH RASH & TOE WOUND - HEALED, KIDNEY DISEASE, SOB W/ HOME O2, LOW MAGNESIUM W/ WEEKLY INFUSIONS History of Any Multi-Drug Resistant Organisms: None Reported Past Surgical History: Appendectomy, Bowel Resection Additional Past Surgical History / Comment(s): "35 YEARS AGO- BOWEL RESECTION AND ILEOCECAL VALVE REMOVED WITH 1 FOOT OF INTESTINE, HAD 2ND BOWEL RESECTION 3 YEARS AGO Past Anesthesia/Blood Transfusion Reactions: No Reported Reaction Past Psychological History: Anxiety Smoking Status: Former smoker - Past Family History Mother Family Medical History: Coronary Artery Disease (CAD), Diabetes Mellitus Additional Family Medical History / Comment(s): NIDDM Father Family Medical History: Coronary Artery Disease (CAD), Diabetes Mellitus, Hypertension Medications and Allergies Home Medications Medication Instructions Recorded Confirmed Type Cholecalciferol [Vitamin D3 (25 50 mcg PO BID 05/06/21 06/02/24 History Mcg = 1000 Iu)] Cyanocobalamin (Vitamin B-12) 1,000 mcg PO DAILY 05/06/21 06/02/24 History [Vitamin B-12] Cholestyramine/Aspartame 4 gm PO TID-W/MEALS 10/15/22 06/02/24 History [Cholestyramine Light Packet] Calcium Carbonate 500 mg PO QID 10/13/23 06/02/24 History Empagliflozin [Jardiance] 10 mg PO DAILY 02/17/24 06/02/24 History Albuterol Inhaler [Ventolin Hfa 2 puff INHALATION RT-Q4H PRN 03/31/24 06/02/24 History Inhaler] Atorvastatin [Lipitor] 40 mg PO DAILY 03/31/24 06/02/24 History Escitalopram [Lexapro] 20 mg PO DAILY 03/31/24 06/02/24 History Fluticasone Propion/Salmeterol 1 puff INHALATION RT-BID 03/31/24 06/02/24 History [Wixela 100-50 Inhub] Ipratropium-Albuterol Nebulize 3 ml INHALATION RT-Q4H 03/31/24 06/02/24 History [Duoneb 0.5 mg-3 mg/3 ml Soln] Mesalamine [Asacol Hd] 800 mg PO TID 03/31/24 06/02/24 History Metoprolol Succinate (ER) [Toprol 25 mg PO DAILY 03/31/24 06/02/24 History XL] Clopidogrel [Plavix] 75 mg PO DAILY #30 tab 05/12/24 06/02/24 Rx Tamsulosin [Flomax] 0.4 mg PO PC-BRKFST #30 cap 05/12/24 06/02/24 Rx amLODIPine [Norvasc] 2.5 mg PO DAILY #30 tab 05/12/24 06/02/24 Rx Sodium Bicarbonate Tab 650 mg PO DAILY #90 tab 05/27/24 06/02/24 Rx Sodium Zirconium Cyclosilicate 10 gm PO DAILY #90 packet 05/27/24 06/02/24 Rx [Lokelma] Apixaban [Eliquis Starter Pack 5 - 10 mg PO DIRECTED 30 Days 06/02/24 Rx (for VTE)] #1 each Allergies Allergy/AdvReac Type Severity Reaction Status Date / Time etodolac AdvReac Abdominal Verified 06/02/24 11:50 Pain hydrochlorothiazide AdvReac dizziness Verified 06/02/24 11:50 [From Prinzide] & cramps lisinopril [From Prinzide] AdvReac dizziness Verified 06/02/24 11:50 & cramps vardenafil [From Levitra] AdvReac Disoriented Verified 06/02/24 11:50 Surgical - Exam Vital Signs Temp Pulse Resp BP Pulse Ox 97.8 F 62 18 130/75 100 06/02/24 09:26 06/02/24 09:26 06/02/24 09:26 06/02/24 09:26 06/02/24 09:26 General appearance: The patient is alert, oriented, appears in no acute distress. HET: Head is normocephalic and atraumatic. Pupils are equal and reactive. Neck: Supple. Heart: Regular. Lungs: Equal expansion, normal respiratory effort. Abdomen: Soft, nontender, nondistended. Extremities: Palpable bilateral +2 radial pulses. Left upper extremity, antecubital region with swelling and redness. Mildly tender to palpation. Neurological: No focal deficits. Strength and sensation are grossly intact. Results - Labs 06/02/24 11:48 06/02/24 11:48 Abnormal Lab Results - Last 24 Hours (Table) 06/02/24 06/02/24 Range/Units 11:48 11:48 WBC 11.9 H (3.8-10.6) k/uL RBC 4.13 L (4.30-5.90) m/uL Hgb 11.4 L (13.0-17.5) gm/dL Hct 38.5 L (39.0-53.0) % MCHC 29.6 L (31.0-37.0) g/dL Neutrophils # 8.9 H (1.3-7.7) k/uL Sodium 136 L (137-145) mmol/L Chloride 113 H (98-107) mmol/L Carbon Dioxide 13 L (22-30) mmol/L BUN 24 H (9-20) mg/dL Creatinine 1.96 H (0.66-1.25) mg/dL Glucose 102 H (74-99) mg/dL Diabetes panel 06/02/24 Range/Units 11:48 Sodium 136 L (137-145) mmol/L Potassium 4.9 (3.5-5.1) mmol/L Chloride 113 H (98-107) mmol/L Carbon Dioxide 13 L (22-30) mmol/L BUN 24 H (9-20) mg/dL Creatinine 1.96 H (0.66-1.25) mg/dL Glucose 102 H (74-99) mg/dL Calcium 8.9 (8.4-10.2) mg/dL AST 28 (17-59) U/L ALT 23 (4-49) U/L Alkaline Phosphatase 71 (38-126) U/L Total Protein 7.1 (6.3-8.2) g/dL Albumin 4.2 (3.5-5.0) g/dL Calcium panel 06/02/24 Range/Units 11:48 Calcium 8.9 (8.4-10.2) mg/dL Albumin 4.2 (3.5-5.0) g/dL Pituitary panel 06/02/24 Range/Units 11:48 Sodium 136 L (137-145) mmol/L Potassium 4.9 (3.5-5.1) mmol/L Chloride 113 H (98-107) mmol/L Carbon Dioxide 13 L (22-30) mmol/L BUN 24 H (9-20) mg/dL Creatinine 1.96 H (0.66-1.25) mg/dL Glucose 102 H (74-99) mg/dL Calcium 8.9 (8.4-10.2) mg/dL Adrenal panel 06/02/24 Range/Units 11:48 Sodium 136 L (137-145) mmol/L Potassium 4.9 (3.5-5.1) mmol/L Chloride 113 H (98-107) mmol/L Carbon Dioxide 13 L (22-30) mmol/L BUN 24 H (9-20) mg/dL Creatinine 1.96 H (0.66-1.25) mg/dL Glucose 102 H (74-99) mg/dL Calcium 8.9 (8.4-10.2) mg/dL Total Bilirubin 0.5 (0.2-1.3) mg/dL AST 28 (17-59) U/L ALT 23 (4-49) U/L Alkaline Phosphatase 71 (38-126) U/L Total Protein 7.1 (6.3-8.2) g/dL Albumin 4.2 (3.5-5.0) g/dL Assessment and Plan Assessment: 1. Left upper extremity DVT secondary to recent IV 2. Chronic hypomagnesemia who receives IV transfusions 3. Recent TCAR 05/10/2024 Plan: 1. You may discontinue heparin drip and start patient on Eliquis taper dose for DVT 2. Discussed with patient to discontinue aspirin 81 mg daily and continue with Eliquis and Plavix 3. Elevate left upper extremity as needed 4. Patient is cleared from vascular surgery to be discharged home Thank you for this consultation, we will sign off at this time. He can follow- up with vascular surgery and 2 to 3 weeks. The impression and plan of care has been dictated as directed. I performed a history and examination of this patient, discussed the same with the dictator. I agree with the dictator's note ,documented as a scribe. Any additional findings or plans will be noted.
[2024-06-02] MEDS: Apixaban Initiation Dose--VTE 5 MG TAB PO SCH (12:36)
--- NOTE | 2024-06-02 12:48 | P.HPIM ---
History of Present Illness H&P Date: 06/02/24 Chief Complaint: Left upper extremity swelling and erythema Patient is a 74-year-old male with a past medical history of CKD stage III, chronic hypomagnesemia, Crohn's disease status post bowel resection, COPD on 2 L, hypertension, recent CVA and had TCAR who came into the ED for left upper extremity swelling and erythema. Patient had just been discharged from our facility on 05/27/2024 and was treated for hyperkalemia. Patient had a IV line in his left upper extremity. In the ED patient had a venous Doppler that showed superficial thrombophlebitis of the basilic and cephalic vein and also a deep vein thrombosis of the basilic vein. Patient was seen by vascular surgery before I saw the patient and they cleared him for discharge. They wanted the patient to start on Eliquis and to stop the aspirin. Patient was deemed stable for discharge. 10 ROS reviewed and are negative except as noted in HPI Physical exam General: [Alert and oriented, well nourished, no acute distress]. Eye: [PERRL, EOMI, normal conjunctiva]. HENT: [Normocephalic, clear tympanic membranes, normal hearing, moist oral mucosa, no scleral icterus, no sinus tenderness]. Neck: [Supple, non-tender, no carotid bruits, no JVD, no lymphadenopathy]. Lungs: [Clear to auscultation and percussion, non-labored respiration]. Heart: [Normal rate, regular rhythm, no murmur, gallop or edema]. Abdomen: [Soft, non-tender, non-distended, normal bowel sounds, no masses]. Musculoskeletal: [Normal range of motion and strength, erythema and swelling in the antecubital fossa]. Skin: [Skin is warm, dry and pink, no rashes or lesions]. Neurologic: [Awake, alert, and oriented X3, CN II-XII intact]. Psychiatric: [Cooperative, appropriate mood and affect]. Assessment and plan Acute left upper extremity DVT and superficial thrombophlebitis Patient will be discharged on Eliquis Aspirin will be discontinued Patient will resume Plavix Discussed with vascular surgery COPD on 2 L Continue with home meds Urinary retention Continue with Flomax CKD stage III Stable Right carotid artery stenosis Continue with Plavix. Aspirin discontinued History of Crohn's disease Status post resection Stable Chronic hypomagnesemia Patient gets outpatient infusion daily. Patient states that he had 2 bags of magnesium this morning Magnesium in the ED is 1.8. Recent CVA Aspirin discontinued Will resume Eliquis and Plavix and statin DVT prophylaxis: Eliquis Past Medical History Past Medical History: GERD/Reflux, Hypertension, Osteoarthritis (OA), Renal Disease Additional Past Medical History / Comment(s): BOWEL RESECTION X2 DUE TO INFECTION, CROHNS, IBS, HERNIATED DISC, COVID JUL 2021, HOSPTALIZED AUG 2021 WIT H RASH & TOE WOUND - HEALED, KIDNEY DISEASE, SOB W/ HOME O2, LOW MAGNESIUM W/ WEEKLY INFUSIONS History of Any Multi-Drug Resistant Organisms: None Reported Past Surgical History: Appendectomy, Bowel Resection Additional Past Surgical History / Comment(s): "35 YEARS AGO- BOWEL RESECTION AND ILEOCECAL VALVE REMOVED WITH 1 FOOT OF INTESTINE, HAD 2ND BOWEL RESECTION 3 YEARS AGO Past Anesthesia/Blood Transfusion Reactions: No Reported Reaction Past Psychological History: Anxiety Smoking Status: Former smoker - Past Family History Mother Family Medical History: Coronary Artery Disease (CAD), Diabetes Mellitus Additional Family Medical History / Comment(s): NIDDM Father Family Medical History: Coronary Artery Disease (CAD), Diabetes Mellitus, Hypertension Medications and Allergies Home Medications Medication Instructions Recorded Confirmed Type Cholecalciferol [Vitamin D3 (25 50 mcg PO BID 05/06/21 06/02/24 History Mcg = 1000 Iu)] Cyanocobalamin (Vitamin B-12) 1,000 mcg PO DAILY 05/06/21 06/02/24 History [Vitamin B-12] Cholestyramine/Aspartame 4 gm PO TID-W/MEALS 10/15/22 06/02/24 History [Cholestyramine Light Packet] Calcium Carbonate 500 mg PO QID 10/13/23 06/02/24 History Empagliflozin [Jardiance] 10 mg PO DAILY 02/17/24 06/02/24 History Albuterol Inhaler [Ventolin Hfa 2 puff INHALATION RT-Q4H PRN 03/31/24 06/02/24 History Inhaler] Atorvastatin [Lipitor] 40 mg PO DAILY 03/31/24 06/02/24 History Escitalopram [Lexapro] 20 mg PO DAILY 03/31/24 06/02/24 History Fluticasone Propion/Salmeterol 1 puff INHALATION RT-BID 03/31/24 06/02/24 History [Wixela 100-50 Inhub] Ipratropium-Albuterol Nebulize 3 ml INHALATION RT-Q4H 03/31/24 06/02/24 History [Duoneb 0.5 mg-3 mg/3 ml Soln] Mesalamine [Asacol Hd] 800 mg PO TID 03/31/24 06/02/24 History Metoprolol Succinate (ER) [Toprol 25 mg PO DAILY 03/31/24 06/02/24 History XL] Clopidogrel [Plavix] 75 mg PO DAILY #30 tab 05/12/24 06/02/24 Rx Tamsulosin [Flomax] 0.4 mg PO PC-BRKFST #30 cap 05/12/24 06/02/24 Rx amLODIPine [Norvasc] 2.5 mg PO DAILY #30 tab 05/12/24 06/02/24 Rx Sodium Bicarbonate Tab 650 mg PO DAILY #90 tab 05/27/24 06/02/24 Rx Sodium Zirconium Cyclosilicate 10 gm PO DAILY #90 packet 05/27/24 06/02/24 Rx [Lokelma] Apixaban [Eliquis Starter Pack 5 - 10 mg PO DIRECTED 30 Days 06/02/24 Rx (for VTE)] #1 each Allergies Allergy/AdvReac Type Severity Reaction Status Date / Time etodolac AdvReac Abdominal Verified 06/02/24 11:50 Pain hydrochlorothiazide AdvReac dizziness Verified 06/02/24 11:50 [From Prinzide] & cramps lisinopril [From Prinzide] AdvReac dizziness Verified 06/02/24 11:50 & cramps vardenafil [From Levitra] AdvReac Disoriented Verified 06/02/24 11:50 Physical Exam Osteopathic Statement: *. No significant issues noted on an osteopathic structural exam other than those noted in the History and Physical/Consult. Vitals: Vital Signs Temp Pulse Resp BP Pulse Ox 06/02/24 11:48 61 18 102/87 98 06/02/24 09:26 97.8 F 62 18 130/75 100 Intake and Output 06/01/24 06/02/24 06/02/24 22:59 06:59 14:59 Other: Weight 101.605 kg Results CBC & Chem 7: 06/02/24 11:48 06/02/24 11:48 Labs: Abnormal Lab Results - Last 24 Hours (Table) 06/02/24 06/02/24 Range/Units 11:48 11:48 WBC 11.9 H (3.8-10.6) k/uL RBC 4.13 L (4.30-5.90) m/uL Hgb 11.4 L (13.0-17.5) gm/dL Hct 38.5 L (39.0-53.0) % MCHC 29.6 L (31.0-37.0) g/dL Neutrophils # 8.9 H (1.3-7.7) k/uL Sodium 136 L (137-145) mmol/L Chloride 113 H (98-107) mmol/L Carbon Dioxide 13 L (22-30) mmol/L BUN 24 H (9-20) mg/dL Creatinine 1.96 H (0.66-1.25) mg/dL Glucose 102 H (74-99) mg/dL
--- NOTE | 2024-06-02 12:50 | P.DS ---
Providers Date of admission: 06/02/24 11:12 Attending physician: Rachel Otero MD Consults: 06/02/24 11:27 Consult Physician Urgent Consulting Provider: Jeanne Mena Consult Reason/Comments: Upper extremity DVT Do you want consulting provider notified?: Yes Primary care physician: [facility] Hospital Course: Discharge Diagnosis: Acute DVT and superficial thrombophlebitis COPD on 2 L Urine retention CKD stage III Right carotid artery stenosis History of chronic disease Chronic hypomagnesemia Recent CVA Hospital Course: Patient is a 74-year-old male with a past medical history of CKD stage III, chronic hypomagnesemia, Crohn's disease status post bowel resection, COPD on 2 L, hypertension, recent CVA and had TCAR who came into the ED for left upper extremity swelling and erythema. Patient had just been discharged from our facility on 05/27/2024 and was treated for hyperkalemia. Patient had a IV line in his left upper extremity. In the ED patient had a venous Doppler that showed superficial thrombophlebitis of the basilic and cephalic vein and also a deep vein thrombosis of the basilic vein. Patient was seen by vascular surgery before I saw the patient and they cleared him for discharge. They wanted the patient to start on Eliquis and to stop the aspirin. Patient was deemed stable for discharge. Patient seen and examined at bedside.[] Please see H&P for physical exam A total of [33] minutes of time were spent preparing this complex discharge summary . Patient discharged on [06/02/2024] Patient Condition at Discharge: Fair Plan - Discharge Summary New Discharge Prescriptions: New Apixaban [Eliquis Starter Pack (for VTE)] 5 - 10 mg PO DIRECTED 30 Days #1 each Continue Calcium Carbonate 500 mg PO QID Empagliflozin [Jardiance] 10 mg PO DAILY Escitalopram [Lexapro] 20 mg PO DAILY Fluticasone Propion/Salmeterol [Wixela 100-50 Inhub] 1 puff INHALATION RT-BID Mesalamine [Asacol Hd] 800 mg PO TID Albuterol Inhaler [Ventolin Hfa Inhaler] 2 puff INHALATION RT-Q4H PRN PRN Reason: Shortness Of Breath Clopidogrel [Plavix] 75 mg PO DAILY #30 tab Sodium Zirconium Cyclosilicate [Lokelma] 10 gm PO DAILY #90 packet Cyanocobalamin (Vitamin B-12) [Vitamin B-12] 1,000 mcg PO DAILY Cholecalciferol [Vitamin D3 (25 Mcg = 1000 Iu)] 50 mcg PO BID Cholestyramine/Aspartame [Cholestyramine Light Packet] 4 gm PO TID-W/MEALS Metoprolol Succinate (ER) [Toprol XL] 25 mg PO DAILY Atorvastatin [Lipitor] 40 mg PO DAILY Ipratropium-Albuterol Nebulize [Duoneb 0.5 mg-3 mg/3 ml Soln] 3 ml INHALATION RT-Q4H Tamsulosin [Flomax] 0.4 mg PO PC-BRKFST #30 cap amLODIPine [Norvasc] 2.5 mg PO DAILY #30 tab Sodium Bicarbonate Tab 650 mg PO DAILY #90 tab Discontinued Aspirin 81 mg PO DAILY #30 tab Discharge Medication List Cholecalciferol [Vitamin D3 (25 Mcg = 1000 Iu)] 50 mcg PO BID 05/06/21 [History] Cyanocobalamin (Vitamin B-12) [Vitamin B-12] 1,000 mcg PO DAILY 05/06/21 [History] Cholestyramine/Aspartame [Cholestyramine Light Packet] 4 gm PO TID-W/MEALS 10/15/22 [History] Calcium Carbonate 500 mg PO QID 10/13/23 [History] Empagliflozin [Jardiance] 10 mg PO DAILY 02/17/24 [History] Albuterol Inhaler [Ventolin Hfa Inhaler] 2 puff INHALATION RT-Q4H PRN 03/31/24 [History] Atorvastatin [Lipitor] 40 mg PO DAILY 03/31/24 [History] Escitalopram [Lexapro] 20 mg PO DAILY 03/31/24 [History] Fluticasone Propion/Salmeterol [Wixela 100-50 Inhub] 1 puff INHALATION RT-BID 03/31/24 [History] Ipratropium-Albuterol Nebulize [Duoneb 0.5 mg-3 mg/3 ml Soln] 3 ml INHALATION RT-Q4H 03/31/24 [History] Mesalamine [Asacol Hd] 800 mg PO TID 03/31/24 [History] Metoprolol Succinate (ER) [Toprol XL] 25 mg PO DAILY 03/31/24 [History] Clopidogrel [Plavix] 75 mg PO DAILY #30 tab 05/12/24 [Rx] Tamsulosin [Flomax] 0.4 mg PO PC-BRKFST #30 cap 05/12/24 [Rx] amLODIPine [Norvasc] 2.5 mg PO DAILY #30 tab 05/12/24 [Rx] Sodium Bicarbonate Tab 650 mg PO DAILY #90 tab 05/27/24 [Rx] Sodium Zirconium Cyclosilicate [Lokelma] 10 gm PO DAILY #90 packet 05/27/24 [Rx] Apixaban [Eliquis Starter Pack (for VTE)] 5 - 10 mg PO DIRECTED 30 Days #1 each 06/02/24 [Rx] Follow up Appointment(s)/Referral(s): Jeanne Mena DO [STAFF PHYSICIAN] - 1 Week (follow up for Left upper extremity DVT in 2-3 weeks) [facility],Clinic [Primary Care Provider] - 1-2 days Patient Instructions/Handouts: Apixaban (By mouth), Deep Vein Thrombosis (DC) Discharge Disposition: HOME SELF-CARE
[2024-06-02 13:25] VITALS: BP 147/82; PULSE 63; RESP 16; TEMP 97.9
== END 2024-06-02 13:23 | disposition home or self-care (01) ==
LOC: EC 09:17 → UNDOADMOB 11:12 → 6NMEDSUR 11:12 → EC 13:23 → UNDODISOB 13:23
DX: I82.402 Acute embolism and thrombosis of unspecified deep veins of left lower extremity (principal); Z87.891 Personal history of nicotine dependence; Z88.8 Allergy status to other drugs, medicaments and biological substances
CPT/HCPCS: 80053; 83735; 85025; 85610; 85730; 93971; 99284; 96365; J1644 ×2

== ENCOUNTER 2024-06-21 01:41 | Emergency (ER) | payer OTHER ==
[2024-06-21 02:04] LABS: Glucose,Whole Blood 100 mg/dL (70-110)
[2024-06-21 02:09] LABS: Basophils # (A) 0.1 k/uL (0-0.2); Basophils % (A) 1 %; Eosinophils # (A) 0.5 k/uL (0-0.7); Eosinophils % (A) 4 %; HCT 36.7 % (39.0-53.0); HGB 11.4 gm/dL (13.0-17.5); Hypochromasia Moderate; Lymphocytes # (A) 2.3 k/uL (1.0-4.8); Lymphocytes % (A) 21 %; MCH 28.5 pg (25.0-35.0); MCHC 31.1 g/dL (31.0-37.0); MCV 91.5 fL (80.0-100.0); Mean Platelet Volume 7.9; Monocytes % (A) 9 %; Neutrophils # (A) 6.8 k/uL (1.3-7.7); Neutrophils % (A) 63 %; Platelet Count 306 k/uL (150-450); RBC 4.01 m/uL (4.30-5.90); WBC 10.8 k/uL (3.8-10.6)
[2024-06-21] MEDS: SODIUM CHLORIDE 0.9% 1,000 ML IV STA (02:20)
--- NOTE | 2024-06-21 02:35 | ED ---
General Adult HPI - General Chief complaint: Weakness Stated complaint: Weakness Time Seen by Provider: 06/21/24 01:44 Source: patient Mode of arrival: wheelchair Limitations: no limitations - History of Present Illness Initial comments: Dictation was produced using From[employer] dictation software. please excuse any grammatical, word or spelling errors. Chief Complaint: 74-year-old male with chronic hypomagnesemia presents to the ER for weakness, body aches, shortness of breath History of Present Illness: Patient 74-year-old male he states he has chronic hypomagnesemia. Patient states he has been feeling sick weak and achy for the last several months. States that he recently missed one of his weekly 2 infusions recently because some things came up. States that he is being considered for port placement for at home magnesium infusions. He has history of COPD and reports his usual shortness of breath. Does complain of bodyaches. Denies any fever, chills or night sweats. States for the last 3 to 4 days he felt like his symptoms have been worse than usual. The ROS documented in this emergency department record has been reviewed and confirmed by me. Those systems with pertinent positive or negative responses have been documented in the HPI. All other systems are other negative and/or noncontributory. - Related Data Home Medications Medication Instructions Recorded Confirmed Cholecalciferol [Vitamin D3 (25 50 mcg PO BID 05/06/21 06/13/24 Mcg = 1000 Iu)] Cyanocobalamin (Vitamin B-12) 1,000 mcg PO DAILY 05/06/21 06/13/24 [Vitamin B-12] Cholestyramine/Aspartame 4 gm PO TID-W/MEALS 10/15/22 06/13/24 [Cholestyramine Light Packet] Calcium Carbonate 500 mg PO QID 10/13/23 06/13/24 Empagliflozin [Jardiance] 10 mg PO DAILY 02/17/24 06/13/24 Albuterol Inhaler [Ventolin Hfa 2 puff INHALATION RT-Q4H PRN 03/31/24 06/13/24 Inhaler] Atorvastatin [Lipitor] 40 mg PO DAILY 03/31/24 06/13/24 Escitalopram [Lexapro] 20 mg PO DAILY 03/31/24 06/13/24 Fluticasone Propion/Salmeterol 1 puff INHALATION RT-BID 03/31/24 06/13/24 [Wixela 100-50 Inhub] Ipratropium-Albuterol Nebulize 3 ml INHALATION RT-Q4H 03/31/24 06/13/24 [Duoneb 0.5 mg-3 mg/3 ml Soln] Mesalamine [Asacol Hd] 800 mg PO TID 03/31/24 06/13/24 Metoprolol Succinate (ER) [Toprol 25 mg PO DAILY 03/31/24 06/13/24 XL] Previous Rx's Medication Instructions Recorded Clopidogrel [Plavix] 75 mg PO DAILY #30 tab 05/12/24 Tamsulosin [Flomax] 0.4 mg PO PC-BRKFST #30 cap 05/12/24 amLODIPine [Norvasc] 2.5 mg PO DAILY #30 tab 05/12/24 Sodium Bicarbonate Tab 650 mg PO DAILY #90 tab 05/27/24 Sodium Zirconium Cyclosilicate 10 gm PO DAILY #90 packet 05/27/24 [Lokelma] Apixaban [Eliquis Starter Pack 5 - 10 mg PO DIRECTED 30 Days 06/02/24 (for VTE)] #1 each Allergies Allergy/AdvReac Type Severity Reaction Status Date / Time etodolac AdvReac Abdominal Verified 06/21/24 01:49 Pain hydrochlorothiazide AdvReac dizziness Verified 06/21/24 01:49 [From Prinzide] & cramps lisinopril [From Prinzide] AdvReac dizziness Verified 06/21/24 01:49 & cramps vardenafil [From Levitra] AdvReac Disoriented Verified 06/21/24 01:49 Review of Systems ROS Statement: Those systems with pertinent positive or pertinent negative responses have been documented in the HPI. ROS Other: All systems not noted in ROS Statement are negative. Past Medical History Past Medical History: COPD, GERD/Reflux, Hypertension, Osteoarthritis (OA), Renal Disease Additional Past Medical History / Comment(s): BOWEL RESECTION X2 DUE TO INFECTION, CROHNS, IBS, HERNIATED DISC, COVID JUL 2021, HOSPTALIZED AUG 2021 WITH RASH & TOE WOUND - HEALED, KIDNEY DISEASE, SOB W/ HOME O2, LOW MAGNESIUM W/ WEEKLY INFUSIONS History of Any Multi-Drug Resistant Organisms: None Reported Past Surgical History: Appendectomy, Bowel Resection, Heart Catheterization With Stent Additional Past Surgical History / Comment(s): "35 YEARS AGO- BOWEL RESECTION AND ILEOCECAL VALVE REMOVED WITH 1 FOOT OF INTESTINE, HAD 2ND BOWEL RESECTION 3 YEARS AGO Past Anesthesia/Blood Transfusion Reactions: No Reported Reaction Past Psychological History: Anxiety Smoking Status: Former smoker Past Alcohol Use History: None Reported Past Drug Use History: None Reported - Past Family History Mother Family Medical History: Coronary Artery Disease (CAD), Diabetes Mellitus Additional Family Medical History / Comment(s): NIDDM Father Family Medical History: Coronary Artery Disease (CAD), Diabetes Mellitus, Hypertension General Exam - General Exam Comments Initial Comments: PHYSICAL EXAM: General Impression: Alert and oriented x3, not in acute distress HEENT: Normocephalic atraumatic, extra-ocular movements intact, pupils equal and reactive to light bilaterally, mucous membranes moist. Cardiovascular: Heart regular rate and rhythm Chest: Able to complete full sentences, no retractions, no tachypnea Abdomen: abdomen soft, non-tender, non-distended, no organomegaly Musculoskeletal: Pulses present and equal in all extremities, no peripheral edema Motor: no focal deficits noted Neurological: CN II-XII grossly intact, no focal motor or sensory deficits noted Skin: Intact with no visualized rashes Psych: Normal affect and mood Limitations: no limitations Course Vital Signs 06/21/24 06/21/24 06/21/24 01:48 02:07 04:15 Temperature 98.9 F 97.5 F L Pulse Rate 70 62 78 Respiratory 20 17 18 Rate Blood Pressure 90/47 130/72 132/61 O2 Sat by Pulse 97 98 96 Oximetry Medical Decision Making - Medical Decision Making Was pt. sent in by a medical professional or institution (, PA, ENTERTAINMENT LAWYER, urgent care, hospital, or detention...) When possible be specific @ -No Did you speak to anyone other than the patient for history (EMS, parent, family, police, friend...)? What history was obtained from this source @ -No Did you review nursing and triage notes (agree or disagree)? Why? @ -I reviewed and agree with nursing and triage notes Were old charts reviewed (outside hosp., previous admission, EMS record, old EKG, old radiological studies, urgent care reports/EKG's, detention records)? Report findings @ -Previous labs were reviewed showing that labs appear to be close to his baseline Differential Diagnosis (chest pain, altered mental status, abdominal pain women, abdominal pain men, vaginal bleeding, musculoskeletal, weakness, fever, dyspnea, syncope, headache, dizziness, GI bleed, back pain, seizure, CVA, palpatations, mental health)? @ -Differential Weakness: Hypoglycemia, shock, sepsis, hyponatremia, anemia, infection, DC, ETOH, adverse medicine reaction, overdose, stroke, this is not meant to be an all-inclusive list. EKG interpreted by me (3pts min.). @ -None done X-rays interpreted by me (1pt min.). @ -None done CT interpreted by me (1pt min.). @ -None done U/S interpreted by me (1pt. min.). @ -None done What testing was considered but not performed or refused? (CT, X-rays, U/S, labs)? Why? @ -None What meds were considered but not given or refused? Why? @ -None Was smoking cessation discussed for >3mins.? @ -No Were there social determinants of health that impacted care today? How? (Homelessness, low income, unemployed, alcoholism, drug addiction, transportation, low edu. Level, literacy, decrease access to med. care, prison, rehab)? @ -No Was there de-escalation of care discussed even if they declined (Discuss DNR or withdrawal of care, Hospice)? DNR status @ -No What co-morbidities impacted this encounter? (DM, HTN, Smoking, COPD, CAD, Cancer, CVA, ARF, Chemo, Hep., AIDS, mental health diagnosis, sleep apnea, morb id obesity)? @ -Kidney disease Was patient admitted / discharged? Hospital course, mention meds given and route, prescriptions, significant lab abnormalities, going to OR and other pertinent info. @ -74-year-old male presents to the emergency department for acute on chronic weakness. He is concerned that his magnesium is low. He has a history of COPD states that he is short of breath. Patient wears 2 L nasal cannula oxygen at home. Vital signs stable. Patient well-appearing at the bedside he is not in any sort of respiratory distress. Laboratory evaluation obtained. Labs are within acceptable limits. Hemoglobin 11.4 which is around his baseline. Patient has a nongap acidosis. His bicarb is where it has been as of recent. Renal function appears to be slightly above patient's recent baseline. Patient given IV fluids. Viral testing is negative. Patient reevaluated bedside 5:15 AM found to be stable to condition. Disposition options were discussed. Patient is surprised that his magnesium levels are within the normal range. Patient agreeable for discharge told to follow-up closely primary care doctor. Return precautions discussed. Did you discuss the management of the patient with other professionals (professionals i.e. , PA, ENTERTAINMENT LAWYER, lab, RT, psych nurse, licensed clinical social worker, auto clutch specialist, teacher, marine safety officer, briefcase sewer)? Give summary @ -No Was critical care preformed (if so, how long)? @ -No Undiagnosed new problem with uncertain prognosis? @ -No Drug Therapy requiring intensive monitoring for toxicity (Heparin, Nitro, Insulin, Cardizem)? @ -No Were any procedures done? @ -No Diagnosis/symptom? Acute, or Chronic, or Acute on Chronic? Uncomplicated (without systemic symptoms) or Complicated (systemic symptoms)? @ -Generalized weakness Side effects of treatment? @ -No Exacerbation, Progression, or Severe Exacerbation? @ -No Poses a threat to life or bodily function? How? (Chest pain, USA, DC, pneumonia, PE, COPD, DKA, ARF, appy, cholecystitis, CVA, Diverticulitis, Homicidal, Suicidal, threat to staff... and all critical care pts) @ -No - Lab Data Result diagrams: 06/21/24 02:03 06/21/24 02:03 Lab Results 06/21/24 06/21/24 06/21/24 Range/Units 02:03 02:03 02:03 WBC 10.8 H (3.8-10.6) k/uL RBC 4.01 L (4.30-5.90) m/uL Hgb 11.4 L (13.0-17.5) gm/dL Hct 36.7 L (39.0-53.0) % MCV 91.5 (80.0-100.0) fL MCH 28.5 (25.0-35.0) pg MCHC 31.1 (31.0-37.0) g/dL RDW 16.0 H (11.5-15.5) % Plt Count 306 (150-450) k/uL MPV 7.9 Neutrophils % 63 % Lymphocytes % 21 % Monocytes % 9 % Eosinophils % 4 % Basophils % 1 % Neutrophils # 6.8 (1.3-7.7) k/uL Lymphocytes # 2.3 (1.0-4.8) k/uL Monocytes # 1.0 (0-1.0) k/uL Eosinophils # 0.5 (0-0.7) k/uL Basophils # 0.1 (0-0.2) k/uL Hypochromasia Moderate Sodium 137 (137-145) mmol/L Potassium 4.6 (3.5-5.1) mmol/L Chloride 118 H (98-107) mmol/L Carbon Dioxide 10 L (22-30) mmol/L Anion Gap 9 mmol/L BUN 24 H (9-20) mg/dL Creatinine 2.48 H (0.66-1.25) mg/dL Est GFR (CKD-EPI)AfAm 28 (>60 ml/min/1.73 sqM) Est GFR (CKD-EPI)NonAf 24 (>60 ml/min/1.73 sqM) Glucose 97 (74-99) mg/dL POC Glucose (mg/dL) (70-110) mg/dL POC Glu Rubber Goods Assembler ID Calcium 9.2 (8.4-10.2) mg/dL Magnesium 1.8 (1.6-2.3) mg/dL Total Bilirubin 0.4 (0.2-1.3) mg/dL AST 26 (17-59) U/L ALT 21 (4-49) U/L Alkaline Phosphatase 66 (38-126) U/L Total Protein 6.8 (6.3-8.2) g/dL Albumin 4.0 (3.5-5.0) g/dL Influenza Type A (PCR) Not Detected (Not Detectd) Influenza Type B (PCR) Not Detected (Not Detectd) RSV (PCR) Not Detected (Not Detectd) SARS-CoV-2 (PCR) Not Detected (Not Detectd) 06/21/24 Range/Units 02:03 WBC (3.8-10.6) k/uL RBC (4.30-5.90) m/uL Hgb (13.0-17.5) gm/dL Hct (39.0-53.0) % MCV (80.0-100.0) fL MCH (25.0-35.0) pg MCHC (31.0-37.0) g/dL RDW (11.5-15.5) % Plt Count (150-450) k/uL MPV Neutrophils % % Lymphocytes % % Monocytes % % Eosinophils % % Basophils % % Neutrophils # (1.3-7.7) k/uL Lymphocytes # (1.0-4.8) k/uL Monocytes # (0-1.0) k/uL Eosinophils # (0-0.7) k/uL Basophils # (0-0.2) k/uL Hypochromasia Sodium (137-145) mmol/L Potassium (3.5-5.1) mmol/L Chloride (98-107) mmol/L Carbon Dioxide (22-30) mmol/L Anion Gap mmol/L BUN (9-20) mg/dL Creatinine (0.66-1.25) mg/dL Est GFR (CKD-EPI)AfAm (>60 ml/min/1.73 sqM) Est GFR (CKD-EPI)NonAf (>60 ml/min/1.73 sqM) Glucose (74-99) mg/dL POC Glucose (mg/dL) 100 (70-110) mg/dL POC Glu Rubber Goods Assembler ID Achatz Gladys Calcium (8.4-10.2) mg/dL Magnesium (1.6-2.3) mg/dL Total Bilirubin (0.2-1.3) mg/dL AST (17-59) U/L ALT (4-49) U/L Alkaline Phosphatase (38-126) U/L Total Protein (6.3-8.2) g/dL Albumin (3.5-5.0) g/dL Influenza Type A (PCR) (Not Detectd) Influenza Type B (PCR) (Not Detectd) RSV (PCR) (Not Detectd) SARS-CoV-2 (PCR) (Not Detectd) Disposition Clinical Impression: Weakness Disposition: HOME SELF-CARE Condition: Fair Instructions (If sedation given, give patient instructions): Dehydration (ED) Is patient prescribed a controlled substance at d/c from ED?: No Referrals: [facility],Clinic [Primary Care Provider] - 1-2 days Time of Disposition: 05:16
[2024-06-21 02:43] LABS: ALT 21 U/L (4-49); AST 26 U/L (17-59); African American GFR (CKD) 28 (>60 ml/min/1.73 sqM); Alkaline Phosphatase 66 U/L (38-126); Anion Gap 9 mmol/L; Blood Urea Nitrogen 24 mg/dL (9-20); Calcium 9.2 mg/dL (8.4-10.2); Carbon Dioxide 10 mmol/L (22-30); Chloride 118 mmol/L (98-107); Glucose 97 mg/dL (74-99); Magnesium 1.8 mg/dL (1.6-2.3); Non-African American GFR(CKD) 24 (>60 ml/min/1.73 sqM); Potassium 4.6 mmol/L (3.5-5.1); Sodium 137 mmol/L (137-145); Total Bilirubin 0.4 mg/dL (0.2-1.3); Total Protein 6.8 g/dL (6.3-8.2)
[2024-06-21 05:54] VITALS: BP 132/71; PULSE 64; RESP 15; TEMP 98.6
== END 2024-06-21 05:50 | disposition home or self-care (01) ==
LOC: EC 01:41
DX: R53.1 Weakness (principal); N28.9 Disorder of kidney and ureter, unspecified; Z87.891 Personal history of nicotine dependence; Z88.8 Allergy status to other drugs, medicaments and biological substances; Z90.49 Acquired absence of other specified parts of digestive tract; Z11.52 Encounter for screening for COVID-19
CPT/HCPCS: 36415; 80053; 83735; 85025; 87636; 93005; 96360; 99285

== ENCOUNTER → 2024-08-23 | Day surgery (SDC) | payer OTHER ==
[2024-08-23] MEDS: GLUCAGON 1 MG/ML VIAL IM STA (09:16)
[2024-08-23 09:25] VITALS: BP 144/91; PULSE 75; RESP 18
--- NOTE | 2024-08-23 18:37 | MR ---
EXAMINATION TYPE: MR Enterography DATE OF EXAM: 08/23/2024 10:01 AM COMPARISON: None. CLINICAL INDICATION: Male, 74 years old with history of K50.00 CROHN'S DISEASE OF SMALL INTESTINE WIT HOUT; PHH, Crohns of small intestine, hx of 2 colon resections TECHNIQUE: Standard multiplanar, multisequence imaging of the abdomen is performed without and with I V contrast, patient is injected with 10 mL intravenous Gadobutrol gadolinium contrast. Oral Glucagon was given as per enterography protocol. Oral Contrast: 1000 FINDINGS: LOWER CHEST: No significant findings. ABDOMEN Bowel: There is hyperemia of the small bowel thought to be the new terminal ileum and a post surgical patient. Series 8 on image 79. No evidence for obstruction. Wall thickening up to 6 mm and this exte nds approximately 64 mm in length and is in close proximity to the terminal ileum up to 58 mm from th e anastomosis. No Fistulous tract are evidence for organizing fluid collection. No other areas of abn ormal thickening definitively visualized. Large amount of stool is seen throughout the colon. Redunda nt sigmoid colon. Peritoneum: No evidence of pneumoperitoneum, free fluid, or adenopathy. Liver: Unremarkable. Gallbladder and Bile ducts: Unremarkable. Pancreas: Unremarkable. Spleen: Unremarkable. Adrenal glands: Unremarkable. Kidneys: Unremarkable. Bladder: Unremarkable. Reproductive: Unremarkable. Lymph Nodes: Vasculature: Unremarkable. No aortic aneurysm. Musculoskeletal: The osseous structures appear intact. Abdominal wall: Unremarkable. IMPRESSION: 1. Findings suggestive of active Crohn's disease of the neoterminal ileum just proximal to its anasto mosis on the colon. 2. Large amount stool throughout the colon. [facility], , 08/23/2024 6:35 PM
== END ==
LOC: RADMRIMAIN 07:53
PROVIDERS: ATTEND Internal Medicine Gastroenterology
DX: K50.00 Crohn's disease of small intestine without complications (principal)
CPT/HCPCS: 96372; 72197; 74183; J1610; A9585

== ENCOUNTER 2024-09-23 09:17 | Day surgery (SDC) | payer OTHER ==
[2024-09-22 11:49] VITALS: BMI 27.5
[2024-09-23 09:55] VITALS: TEMP 97.6
[2024-09-23] MEDS: IV FLUID CONTINUATION 1,000 ML IV ONE (10:01)
[2024-09-23] MEDS: LACTATED RINGERS 1,000 ML IV SCH (10:01)
[2024-09-23] MEDS ORDERED: PROPOFOL 10 MG/ML 20 ML VIAL IV ONE (10:37)
--- NOTE | 2024-09-23 10:57 | P.PCN ---
Date of Procedure: 09/23/24 Procedure(s) Performed: BRIEF HISTORY: Patient is a 74-year-old pleasant white male scheduled for an elective colonoscopy as a part of evaluation of chronic diarrhea for the last 3 years duration. He was diagnosed with Crohn's ileitis approximately 3 years ago and underwent terminal ileal resection but he remained in remission for almost 25 years. About 5 years ago he was diagnosed with small bowel obstruction was treated with steroids and symptoms improved. He has history of chronic diarrhea with 6-8 bowel movements daily since surgery 30 years ago. Has been on Lomotil and Questran with some help. Recent MR enterography revealed active Crohn's at the neoterminal ileum. PROCEDURE PERFORMED: Colonoscopy with biopsy. PREOPERATIVE DIAGNOSIS: History of Crohn's disease. IV sedation per Anesthesia. PROCEDURE: After informed consent was obtained, the patient, was brought into the endoscopy unit. IV sedation was administered by Anesthesia under continuous monitoring. Digital rectal examination was normal. Initially the Olympus CF-160 flexible video colonoscope was then inserted in the rectum, gradually advanced into the colon with ileocolic anastomosis was visualized. There were multiple scattered erosions noted at the anastomosis. Biopsies were done from this area. Mucosa of the transverse colon, descending colon, sigmoid colon, and rectum appeared normal. Retroflexion was performed in the rectum and no lesions were seen. The patient tolerated the procedure well. IMPRESSION: Scattered erosions at the ileocolic anastomosis status post multiple biopsies Rest of the colon appeared normal Scattered sigmoid diverticulosis and small internal hemorrhoids RECOMMENDATIONS: Findings of this examination were discussed with the patient as well as his family. He was advised to follow-up with the biopsy results. He will be seen in the office in 2 to 3 weeks..
[2024-09-23 11:16] VITALS: BP 128/81; PULSE 75; RESP 18
== END 2024-09-23 11:41 | disposition home or self-care (01) ==
LOC: ORWHC2ENDO 09:17
PROVIDERS: ATTEND Internal Medicine Gastroenterology
DX: K50.00 Crohn's disease of small intestine without complications (principal); Z90.49 Acquired absence of other specified parts of digestive tract; K57.30 Diverticulosis of large intestine without perforation or abscess without bleeding; K64.8 Other hemorrhoids; E78.5 Hyperlipidemia, unspecified; J44.9 Chronic obstructive pulmonary disease, unspecified; N40.0 Benign prostatic hyperplasia without lower urinary tract symptoms; I73.9 Peripheral vascular disease, unspecified; N28.9 Disorder of kidney and ureter, unspecified; Z79.899 Other long term (current) drug therapy; Z95.5 Presence of coronary angioplasty implant and graft; Z79.01 Long term (current) use of anticoagulants; Z86.73 Personal history of transient ischemic attack (TIA), and cerebral infarction without residual deficits; Z88.8 Allergy status to other drugs, medicaments and biological substances
CPT/HCPCS: 45380; J2704; 88305